=== PATIENT | female | born 1945 | race Hispanic/Latino ===

== ENCOUNTER 2016-12-21 09:07 | Inpatient (IN) | payer MEDICARE, OTHER ==
[2016-12-21 09:23] VITALS: BMI 20.5
--- NOTE | 2016-12-21 09:30 | ED PDOC ---
Arrival/HPI - General Chief Complaint: Trauma Time Seen by Provider: 12/21/16 09:17 Historian: Patient, Family, EMS - History of Present Illness Narrative History of Present Illness (Text): 12/21/16 09:20 Patient is a 71 yo female presents to ED after "falling off the bed" "this morning". Patient reportedly was getting up to go to bathroom when she slipped off of bed and landed onto her back. States she has low back pain and neck pain , and was unable to stand due to the pain. Denies LOC. Denies feeling sick prior to his morning. Denies hip or knee pain. Denies chest pain or shortness of breath. Denies focal weakness. Past Medical History - Provider Review Nursing Documentation Reviewed: Yes - Infectious Disease Hx of Infectious Diseases: None - Tetanus Immunization Tetanus Immunization: Unknown - Past Medical History Past Medical History: No Previous - Cardiac Hx Cardiac Disorders: Yes Hx Hypertension: Yes - Pulmonary Hx Respiratory Disorders: Yes Hx Asthma: Yes - Neurological Hx Neurological Disorder: No - HEENT Hx HEENT Disorder: No - Renal Hx Renal Disorder: Yes Hx Kidney Stones: Yes Other/Comment: RENAL CALCULI - Endocrine/Metabolic Hx Diabetes Mellitus Type 2: Yes - Hematological/Oncological Hx Blood Disorders: Yes Hx Blood Transfusions: Yes (2015) - Integumentary Hx Dermatological Disorder: No - Musculoskeletal/Rheumatological Hx Musculoskeletal Disorders: Yes - Gastrointestinal Hx Gastrointestinal Disorders: Yes Other/Comment: CHOLESTASIS. GASTRIC BYPASS - Genitourinary/Gynecological Hx Genitourinary Disorders: Yes (PYELONEPHRITIS,PSEUDOMONAS UTI,RENAL CA) Other/Comment: kidney stone - Psychiatric Hx Psychophysiologic Disorder: Yes Hx Depression: Yes Hx Emotional Abuse: No Hx Physical Abuse: No Hx Substance Use: No - Surgical History Hx Gastric Bypass Surgery: Yes Hx Tubal Ligation: Yes Other/Comment: kidney surgery - Anesthesia Hx Anesthesia Reactions: No Hx Malignant Hyperthermia: No - Suicidal Assessment Feels Threatened In Home Enviroment: No Family/Social History - Physician Review Nursing Documentation Reviewed: Yes Family/Social History: Unknown Family HX Smoking Status: Never Smoked Hx Alcohol Use: No Hx Substance Use: No Hx Substance Use Treatment: No Allergies/Home Meds Allergies/Adverse Reactions: Allergies cashew nut Allergy (Verified 12/21/16 18:18) SWELLING latex Allergy (Verified 12/21/16 18:18) ANAPHYLAXIS naproxen Adverse Reaction (Verified 12/21/16 18:18) SWELLING AVOIDS cashews Allergy (Uncoded 12/21/16 18:18) SWELLING cats Allergy (Uncoded 12/21/16 18:18) RASH Home Medications: Home Meds Medication Instructions Recorded Confirmed Sertraline [Zoloft] 100 mg PO DAILY 08/20/14 12/21/16 ALPRAZolam [Xanax] 0.25 mg PO PRN PRN 10/25/15 12/21/16 Mesalamine [Pentasa] 500 tab PO BID 11/19/15 12/21/16 Glyburide/Metformin HCl 1 tab PO QID 03/29/16 12/21/16 [Glyburide-Metformin 5-500 mg] Gabapentin [Neurontin] 300 tab PO TID 03/31/16 12/21/16 Hydrochlorothiazide 25 mg PO DAILY 04/27/16 12/21/16 Potassium Chloride [K-Dur 20 mEq 20 meq PO QID 04/27/16 12/21/16 ER Tab] Primidone 50 mg PO HS 04/27/16 12/21/16 Ondansetron HCl [Zofran] 4 mg PO PRN PRN 09/08/16 12/21/16 Review of Systems - Review of Systems Constitutional: Fatigue. absent: Fevers Eyes: absent: Vision Changes ENT: absent: Hearing Changes, Tinnitus Respiratory: absent: SOB, Cough Cardiovascular: absent: Chest Pain, Palpitations, BANGURA Gastrointestinal: Diarrhea, Appetite Changes. absent: Abdominal Pain, Vomiting , Hematemesis, Food Intolerance Genitourinary Female: absent: Dysuria, Frequency, Urine Output Changes Musculoskeletal: Back Pain, Neck Pain. absent: Joint Swelling Skin: absent: Rash Neurological: Gait Changes, Disequilibrium. absent: Headache, Dizziness, Focal Weakness, Facial Droop Endocrine: absent: Polyuria Hemo/Lymphatic: absent: Easy Bleeding Physical Exam - Physical Exam Narrative Physical Exam (Text): Head: Atraumatic. Normocephalic. Eyes: PERRL. EOMI. Conjunctivae are not pale. Visual acuity intact. ENT: Mucous membranes are dry. No pharyngeal erythema or exudate. Neck: Supple. Full ROM. Paraspinal tenderness. Cardiovascular: Regular rate. Regular rhythm. Systolic murmur. Pulmonary/Chest: No evidence of respiratory distress. Clear to auscultation bilaterally. No wheezing, rales or rhonchi. No rib tenderness or crepitus. Abdominal: Soft and non-distended. There is no tenderness. No rebound, guarding, or rigidity. No organomegaly. Good bowel sounds. Rectal: loose stool, no melena or active gross bleeding. Back: No CVA tenderness. Diffuse lumbar paraspinal tenderness Extremities: No edema. No cyanosis. No clubbing. Full range of motion in all extremities. No calf tenderness. Strong distal pulses. No hip pain with palpation or rom. No knee or ankle pain. Skin: Skin is warm and dry. No petechiae. No purpura. Neurological: Alert, awake, and oriented to person, place, time, and situation. Normal speech. Unable to ambulate with steady gait. Normal finger to nose. Normal and symmetric reflexes. At rest, no pronator drift, motor and sensory exam intact. No meningeal signs. Psychiatric: Good eye contact. Normal interaction, affect, and behavior. 12/21/16 18:45 Vital Signs Reviewed: Yes Vital Signs Temp Pulse Resp BP Pulse Ox 12/21/16 13:33 66 18 128/55 L 99 12/21/16 11:48 67 18 118/59 L 99 12/21/16 11:07 69 18 121/56 L 99 12/21/16 09:22 98.8 F 74 18 123/48 L 99 Blood Pressure: Normal Appearance: Positive for: Uncomfortable Pain Distress: Moderate Mental Status: Positive for: Alert and Oriented X 3 Medical Decision Making ED Course and Treatment: Plan: Will obtain CT of the head, x-rays of the c-spine and l-spine, and check labs. Prior Visits: Notes and results from previous visits were reviewed. Patient last seen in ED on 09/08/16 for dysuria, hematuria, back pain, nausea, and admitted for acute pyelonephritis Progress Notes: Patient's history reviewed with family present. Reportedly patient fell out of bed, denies syncope, denies preceding chest pain or sob or dizziness or lightheadedness. She states she was "too weak to get up after fall". There is appears to be a component of back pain that limits her standing, although labs obtained as patient appeared generally weak as well. No hip or pelvis pain noted. CT and xrays reviewed: PROCEDURE: CT HEAD WITHOUT CONTRAST. Instructional Design Manager : Dr. Allyson Lowe V. IMPRESSION: Cerebral atrophy similar. No interval hemorrhage or mass effect. No interval gross hypodense infarct PROCEDURE: Cervical Spine Radiographs. Instructional Design Manager : Allyson Zavala V. IMPRESSION: Normal cervical spine radiographs. No fracture or subluxation. No significant degenerative joint disease of the cervical spine level - -patient's age is noted PROCEDURE: Radiographs of the Lumbar Spine. Instructional Design Manager : Allyson Zavala V. FINDINGS: BONES: Lumbar spine straightening. Mild spondylotic ridging mostly at the thoraco lumbar level. No listhesis. No fracture. DISC SPACES: L5-S1 disc space narrowing OTHER FINDINGS: 3.9 x 2.9 cm large faceted calculus as per the CT 11/10/2016 study this was in the right intrarenal pelvis. Additional smaller yet still fairly large calculi project posterior and inferior to the larger intra renal pelvis dominant calculus. Per the recent CT, these additional calculi were seen in the right renal inferior renal cortex. Multiple surgical clips and ha are scattered over the abdomen mostly left- sided. IMPRESSION: No fracture. Other findings as above On re-evaluation, she is found to have persistent low back pain, but no focal neuro deficits. Patient hypokalemic, although EKG unremarkable and BP stable. She does report some history of diarrhea. Abdomen is soft and nontender. UTI also noted, currently patient denies flank pain or abdominal pain. Cultures obtained as patient with prior history of UTI. She denies flank or abdominal pain. Her current back pain is worse with palpation and movement and after fall. Case discussed with Dr. Haley, will admit for hypokalemia, uti, serial exams. 12/21/16 18:47 - Lab Interpretations Lab Results: 12/21/16 09:51 12/21/16 09:51 Lab Results 12/21/16 10:08: Urine Color Yellow, Urine Appearance Turbid, Urine pH 6.0, Ur Specific [place] 1.020, Urine Protein 30 H, Urine Glucose (UA) Negative, Urine Ketones Trace H, Urine Blood Large H, Urine Nitrate Negative, Urine Bilirubin Negative, Urine Urobilinogen 0.2, Ur Leukocyte Esterase Large H, Urine RBC 1 - 3 , Urine WBC Tntc, Urine Bacteria Few 12/21/16 09:51: WBC 7.0 D, RBC 3.56, Hgb 10.6 L, Hct 30.8 L, MCV 86.5, MCH 29.8 , MCHC 34.4, RDW 15.0 H, Plt Count 85 L, MPV 9.8, Gran % 83.8 H, Lymph % (Auto) 7.3 L, [place] % (Auto) 8.3 H, Eos % (Auto) 0.6 L, Baso % (Auto) 0.0, Gran # 5.84, Lymph # 0.5 L, [place] # 0.6, Eos # 0.0, Baso # 0.00, Sodium 141, Potassium 2.3 L* D, Chloride 111 H, Carbon Dioxide 18 L, Anion Gap 14, BUN 13, Creatinine 1.0, Est GFR ( Amer) > 60, Est GFR (Non-Af Amer) 55, Random Glucose 159 H, Calcium 8.4, Total Bilirubin 1.3, AST 30, ALT 29, Alkaline Phosphatase 97, Lactate Dehydrogenase 354, Total Creatine Kinase 229, Troponin I < 0.01, Total Protein 6.6, Albumin 3.0, Globulin 3.6, Albumin/Globulin Ratio 0.8 L - RAD Interpretation Radiology Orders: 12/21/16 09:31 HEAD W/O CONTRAST [CT] Stat CHEST ONE VIEW [RAD] Stat CERVICAL SPINE >18YR W/OBLIQUE [RAD] Stat 12/21/16 09:32 LS SPINE AP/LAT [RAD] Stat - Medication Orders Current Medication Orders: Alprazolam (Xanax) 0.25 mg PO DAILY PRN; Protocol PRN Reason: Anxiety Stop: 12/29/16 10:01 Gabapentin (Neurontin) 300 mg PO TID [facility] PRN Reason: Protocol Last Admin: 12/21/16 15:18 Dose: 300 MG Behavioural Document 12/21/16 15:18 (Rec: 12/21/16 15:18 [id number]) Maintenance Maintenance Dose Yes Re-Assess: Reassess Psych Meds Document 12/21/16 16:18 (Rec: 12/21/16 17:40 [id number]) Reassess Psych Med Effective Glyburide (Micronase) 5 mg PO QID [facility] Last Admin: 12/21/16 17:39 Dose: 5 MG Ceftriaxone Sodium (Rocephin 1 Gram Ivpb) 100 mls @ 100 mls/hr IVPB DAILY AGNES PRN Reason: Protocol Mesalamine (Pentasa) 500 mg PO BID [facility] Last Admin: 12/21/16 17:39 Dose: 500 MG Metformin HCl (Glucophage) 500 mg PO QID [facility] Last Admin: 12/21/16 17:36 Dose: 500 MG Ondansetron HCl (Zofran Inj) 4 mg IVP Q6H PRN PRN Reason: Nausea/Vomiting Potassium Chloride (K-Dur 20 Meq Er Tab) 20 meq PO QID [facility] Potassium Phos/Sodium Phos (Neutra-Phos) 1 pkt PO BID [facility] Last Admin: 12/21/16 17:39 Dose: 1 PKT Primidone (Mysoline) 50 mg PO HS AGNES Sertraline HCl (Zoloft) 100 mg PO DAILY [facility] Discontinued Medications Alprazolam (Xanax) 0.25 mg PO PRN PRN; Protocol PRN Reason: Anxiety Stop: 12/28/16 13:18 Potassium Chloride (Potassium Chloride 10 Meq/100 Ml) 100 mls @ 100 mls/hr IVPB Q2H [facility] Stop: 12/21/16 13:59 Last Admin: 12/21/16 14:01 Dose: 100 MLS/HR eMAR Start Stop Document 12/21/16 14:01 SE (Rec: 12/21/16 14:01 [id number]) Intravenous Solution Start Date 12/21/16 Start Time 14:01 Ceftriaxone Sodium (Rocephin 1 Gram Ivpb) 100 mls @ 200 mls/hr IVPB ONCE STA PRN Reason: Protocol Stop: 12/21/16 12:32 Last Admin: 12/21/16 13:11 Dose: 200 MLS/HR eMAR Start Stop Document 12/21/16 13:11 SE (Rec: 12/21/16 13:11 [id number]) Intravenous Solution Start Date 12/21/16 Start Time 13:11 Magnesium Sulfate/Dextrose (Magnesium Sulfate 1 Gm/100 Ml D5w) 100 mls @ 100 mls/hr IVPB ONCE ONE Stop: 12/21/16 15:35 Last Admin: 12/21/16 15:27 Dose: 100 MLS/HR eMAR Start Stop Document 12/21/16 15:27 (Rec: 12/21/16 15:28 [id number] Intravenous Solution Start Date 12/21/16 Start Time 15:28 End Date 12/21/16 End time 16:28 Total Infusion Time 60 Non-Formulary Medication (Glyburide/Metformin Hcl [Glyburide-Metformin 5-500 Mg] ) 1 tab PO QID AGNES Potassium Chloride (K-Dur 20 Meq Er Tab) 40 meq PO STAT STA Stop: 12/21/16 10:49 Last Admin: 12/21/16 12:11 Dose: 40 MEQ Potassium Chloride (K-Dur 20 Meq Er Tab) 40 meq PO STAT STA Stop: 12/21/16 16:08 Last Admin: 12/21/16 17:39 Dose: 40 MEQ - Scribe Statement The provider has reviewed the documentation as recorded by the Jeovanny Salinas Provider Scribe Attestation: All medical record entries made by the Jeovanny were at my direction and personally dictated by me. I have reviewed the chart and agree that the record accurately reflects my personal performance of the history, physical exam, medical decision making, and the department course for this patient. I have also personally directed, reviewed, and agree with the discharge instructions and disposition. Disposition/Present on Arrival - Present on Arrival Any Indicators Present on Arrival: No History of DVT/PE: No History of Uncontrolled Diabetes: No Urinary Catheter: No History Surgical Site Infection Following: None - Disposition Have Diagnosis and Disposition been Completed?: Yes Diagnosis: Urinary tract infection, Cervical strain, Back pain, Hypokalemia, Head injury Disposition: HOSPITALIZED Disposition Time: 11:00 Patient Plan: Admission, Telemetry Condition: FAIR
[2016-12-21 09:53] LABS: ADD MANUAL DIFF? NO
[2016-12-21 09:56] LABS: EOS % 0.6 % (1.5-5.0); GRAN # 5.84 (1.4-6.5); GRAN % 83.8 % (50.0-68.0); HEMATOCRIT 30.8 % (36.0-48.0); LYMPH # 0.5 (1.2-3.4); LYMPH % 7.3 % (22.0-35.0); MEAN CELL VOLUME 86.5 fL (80.0-105.0); MEAN CORPUSCULAR HEMOGLOBIN 29.8 pg (25.0-35.0); MEAN CORPUSCULAR HGB CONC 34.4 g/dl (31.0-37.0); MEAN PLATELET VOLUME 9.8 fl (7.0-11.0); MONO # 0.6 (0.1-0.6); MONO % 8.3 % (1.0-6.0); PLATELET COUNT 85 10^3/uL (120.0-450.0)
[2016-12-21 10:13] LABS: ALB/GLOB RATIO 0.8 (1.1-1.8); ALKALINE PHOSPHATASE 97 U/L (38-133); ALT/SGPT 29 U/L (7-56); AST/SGOT 30 U/L (15-39); BILIRUBIN,TOTAL 1.3 mg/dL (0.2-1.3); BLOOD UREA NITROGEN 13 mg/dL (7-21); CALCIUM 8.4 mg/dL (8.4-10.5); CARBON DIOXIDE 18 mmol/L (21-33); CHLORIDE 111 mmol/L (95-110); GFR AFRICAN-AMERICAN > 60; GLUCOSE,RANDOM 159 mg/dL (70-110); SODIUM 141 mmol/L (132-148); TOTAL PROTEIN 6.6 g/dL (5.8-8.3)
[2016-12-21 10:19] LABS: TROPONIN I < 0.01 ng/mL
[2016-12-21 10:20] LABS: URINE BILIRUBIN NEGATIVE (NEGATIVE); URINE BLOOD LARGE (NEGATIVE); URINE GLUCOSE (UA) NEGATIVE (NEGATIVE); URINE KETONE TRACE mg/dL (NEGATIVE); URINE LEUKOCYTE ESTERASE LARGE Leu/uL (NEGATIVE); URINE PROTEIN 30 mg/dL (<30 mg/dL); URINE UROBILINOGEN 0.2 E.U./dL (<1 E.U./dL)
[2016-12-21 10:22] LABS: URINE APPEARANCE TURBID (CLEAR); URINE COLOR YELLOW (YELLOW)
[2016-12-21 10:24] LABS: URINE BACTERIA FEW (NEG); URINE WBC TNTC /hpf (0-6)
[2016-12-21 10:47] LABS: POTASSIUM 2.3 mmol/L (3.6-5.0)
[2016-12-21] MEDS ORDERED: Potassium Chloride 20 mEq ER Tab PO STA ×2 (10:48→16:07)
--- NOTE | 2016-12-21 11:11 | CT ---
PROCEDURE: CT HEAD WITHOUT CONTRAST. HISTORY: weakness, unable to stand COMPARISON: 02/27/2015 TECHNIQUE: Axial computed tomography images were obtained through the head/brain without intravenous contrast. Radiation dose: Total exam DLP = 813 mGy-cm. This CT exam was performed using one or more of the following dose reduction techniques: Automated exposure control, adjustment of the mA and/or kV according to patient size, and/or use of iterative reconstruction technique. FINDINGS: HEMORRHAGE: No intracranial hemorrhage. BRAIN: No mass effect or edema. Mild atrophy suggested not inconsistent with patient's age No marked microvascular ischemic changes. VENTRICLES: Unremarkable. No hydrocephalus. CALVARIUM: Unremarkable. PARANASAL SINUSES: Unremarkable as visualized. No significant inflammatory changes. MASTOID AIR CELLS: Unremarkable as visualized. No inflammatory changes. OTHER FINDINGS: None. IMPRESSION: Cerebral atrophy similar. No interval hemorrhage or mass effect. No interval gross hypodense infarct
[2016-12-21] MEDS ORDERED: cefTRIAXone 1 gm 100 ML IVPB STA (12:03)
--- NOTE | 2016-12-21 12:03 | RAD ---
PROCEDURE: Radiographs of the Lumbar Spine. HISTORY: fall, low back pain COMPARISON: No prior. FINDINGS: BONES: Lumbar spine straightening. Mild spondylotic ridging mostly at the thoraco lumbar level. No listhesis. No fracture. DISC SPACES: L5-S1 disc space narrowing OTHER FINDINGS: 3.9 x 2.9 cm large faceted calculus as per the CT 11/10/2016 study this was in the right intrarenal pelvis. Additional smaller yet still fairly large calculi project posterior and inferior to the larger intra renal pelvis dominant calculus. Per the recent CT, these additional calculi were seen in the right renal inferior renal cortex. Multiple surgical clips and ha are scattered over the abdomen mostly left-sided. IMPRESSION: No fracture. Other findings as above
[2016-12-21] MEDS: Potassium Chloride 10 mEq 100 ML IVPB SCH ×4 (12:11→21:21)
--- NOTE | 2016-12-21 12:42 | RAD ---
PROCEDURE: CHEST RADIOGRAPH, 1 VIEW HISTORY: fall COMPARISON: 12/27/2015 FINDINGS: LUNGS: Clear. PLEURA: No pneumothorax or pleural fluid seen. CARDIOVASCULAR: Normal. OSSEOUS STRUCTURES: No significant abnormalities. VISUALIZED UPPER ABDOMEN: Normal. OTHER FINDINGS: None. IMPRESSION: No active disease. No interval pathology appreciated .
--- NOTE | 2016-12-21 12:44 | RAD ---
PROCEDURE: Cervical Spine Radiographs. HISTORY: Pain. COMPARISON: None. FINDINGS: BONES: Alignment maintained. No fracture. Dens Intact. DISC SPACES: Normal. SOFT TISSUES: Normal. No prevertebral soft tissue swelling. OTHER FINDINGS: None. IMPRESSION: Normal cervical spine radiographs. No fracture or subluxation. No significant degenerative joint disease of the cervical spine level - -patient's age is noted
--- NOTE | 2016-12-21 13:51 | CP.PCM.HP ---
<Mingo Lino - Last Filed: 12/21/16 16:03> History of Present Illness - History of Present Illness History of Present Illness: cc: Fall HPI: Patient is a 71yo female with past medical history of DM type 2, nephrolithiasis, hypokalemia, recurrent UTI's, Crohn's disease, pyelonephritis and depression that presented s/p fall at home. Patient reported that she was laying in bed this morning and was attempting to get out of bed when she suddenly slipped off her mattress and fell onto the floor landing on the right- side of her body and right arm. She denies hitting her head, loss of consciousness, bowel/bladder issues and confusion post fall. She reported that after falling she attempted to stand up but was unable to. Patient stated that her came to her aid but also had difficulty helping her up. She reported that shortly after they called 911 for further assistance. On arrival to the ED patient's vitals were as follows: temperature 98.8F, heart rate 74bpm , blood pressure 123/48, respiratory rate 18, o2 saturation 99% on room air. Her initial labs were notable for a hemoglobin of 10.6, hematocrit 30.8, platelet count 85, potassium 2.3, chloride 111, bicarbonate 18. A chest xray revealed no active disease. EKG revealed normal sinus rhythm with no acute ST-T wave changes. Head CT revealed no acute intracranial pathology. Cervical and Lumbar spine xrays revealed no acute fractures or dislocations. Patient was admitted for further evaluation and treatment. 12point ROS as per HPI above, otherwise negative PMHx: DM type 2, nephrolithiasis, pyelonephritis, recurrent UTI's, hypokalemia, Crohn's disease, depression PSHx: Cholecystectomy, gastric bypass, tubal ligation Family Hx: Noncontributory Social Hx: Denies tobacco, alcohol and illicit drug use Allergy: Cashews, Latex, Naproxen, Cat dander PMD: Dr. Browne Urologist: Dr. Horvath Rn Outpatient Surgery: Dr. Jackman Present on Admission - Present on Admission Any Indicators Present on Admission: No Past Patient History - Infectious Disease Hx of Infectious Diseases: None - Tetanus Immunizations Tetanus Immunization: Unknown - Past Social History Smoking Status: Never Smoked - CARDIAC Hx Cardiac Disorders: Yes Hx Hypertension: Yes - PULMONARY Hx Respiratory Disorders: Yes Hx Asthma: Yes - NEUROLOGICAL Hx Neurological Disorder: No - HEENT Hx HEENT Problems: No - RENAL Hx Chronic Kidney Disease: Yes Hx Kidney Stones: Yes Other/Comment: RENAL CALCULI - ENDOCRINE/METABOLIC Hx Diabetes Mellitus Type 2: Yes - HEMATOLOGICAL/ONCOLOGICAL Hx Blood Disorders: Yes Hx Blood Transfusions: Yes (2014) - INTEGUMENTARY Hx Dermatological Problems: No - MUSCULOSKELETAL/RHEUMATOLOGICAL Hx Musculoskeletal Disorders: Yes - GASTROINTESTINAL Hx Gastrointestinal Disorders: Yes Other/Comment: CHOLESTASIS. GASTRIC BYPASS - GENITOURINARY/GYNECOLOGICAL Hx Genitourinary Disorders: Yes (PYELONEPHRITIS,PSEUDOMONAS UTI,RENAL CA) Other/Comment: kidney stone - PSYCHIATRIC Hx Psychophysiologic Disorder: Yes Hx Depression: Yes Hx Emotional Abuse: No Hx Physical Abuse: No Hx Substance Use: No - SURGICAL HISTORY Hx Gastric Bypass Surgery: Yes Hx Tubal Ligation: Yes Other/Comment: kidney surgery - ANESTHESIA Hx Anesthesia Reactions: No Hx Malignant Hyperthermia: No Meds Allergies/Adverse Reactions: Allergies Allergy/AdvReac Type Severity Reaction Status Date / Time cashew nut Allergy SWELLING Verified 12/21/16 18:18 latex Allergy ANAPHYLAXIS Verified 12/21/16 18:18 naproxen AdvReac SWELLING Verified 12/21/16 18:18 cashews Allergy SWELLING Uncoded 12/21/16 18:18 cats Allergy RASH Uncoded 12/21/16 18:18 Physical Exam - Constitutional Appears: Non-toxic, No Acute Distress - Head Exam Head Exam: ATRAUMATIC, NORMAL INSPECTION, NORMOCEPHALIC - Eye Exam Eye Exam: EOMI, PERRL - ENT Exam ENT Exam: Mucous Membranes Moist - Neck Exam Neck exam: Positive for: Normal Inspection. Negative for: Lymphadenopathy, Tenderness, Thyromegaly - Respiratory Exam Respiratory Exam: Clear to Auscultation Bilateral. absent: Rales, Rhonchi, Wheezes - Cardiovascular Exam Cardiovascular Exam: RRR, +S1, +S2. absent: Tachycardia, Diastolic murmur, Gallop, JVD, Rubs, Systolic Murmur - GI/Abdominal Exam GI & Abdominal Exam: Normal Bowel Sounds, Soft. absent: Distended, Firm, Guarding, Rebound, Rigid, Tenderness - Extremities Exam Extremities exam: Positive for: normal inspection. Negative for: calf tenderness, pedal edema, tenderness Additional comments: no apparent fractures, dislocations or bruising motor strength 5/5 in bilateral upper and lower extremities sensory intact throughout - Back Exam Back exam: NORMAL INSPECTION - Neurological Exam Neurological exam: Alert, CN II-XII Intact, Oriented x3 - Psychiatric Exam Psychiatric exam: Normal Affect, Normal Mood - Skin Skin Exam: Dry, Intact, Normal Color, Warm Results - Vital Signs Recent Vital Signs: Last Vital Signs Temp 98.8 F 12/21/16 09:22 Pulse 66 12/21/16 13:33 Resp 18 12/21/16 13:33 BP 128/55 L 12/21/16 13:33 Pulse Ox 99 12/21/16 13:33 - Labs Result Diagrams: 12/21/16 09:51 12/21/16 09:51 Assessment & Plan - Assessment and Plan (Free Text) Assessment: 71yo female with history of DM type 2, Crohn's disease, hypokalemia, crohn's disease presents s/p fall at home. Admitted for treatment of hypokalemia and UTI. Plan: 1. Hypokalemia/Hypomagnesemia/Hypophosphatemia -Potassium 2.3 on arrival; Magnesium 1.5; Phosphorus 1.7 -Will continue to monitor and replete electrolytes as needed 2. 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 s/p fall -Head CT revealed no acute intracranial pathology -Chest xray revealed no active disease -EKG revealed normal sinus rhythm with no acute ST-T wave changes -Cervical and Lumbar spine x-rays revealed no acute fractures -Orthostatic vital signs pending -Right humerus/forearm xray pending 4. Crohn's disease -Continue home medication; mesalamine 5. DM type 2 -Consistent carb diet -Fingersticks ACHS -Continue home medication metformin/glyburide 6. Depression -Continue home medication; zoloft/xanax Case discussed with attending, Dr. Browne - Date & Time Date: 12/21/16 Time: 13:59 <Oleg Browne - Last Filed: 01/11/17 10:59> Results - Vital Signs Recent Vital Signs: Last Vital Signs Temp 98.6 F 12/23/16 17:39 Pulse 72 12/23/16 17:39 Resp 19 12/23/16 17:39 BP 98/56 L 12/23/16 17:39 Pulse Ox 96 12/23/16 17:39 - Labs Result Diagrams: 12/23/16 07:00 12/23/16 07:00 Attending/Attestation - Attestation I have personally seen and examined this patient.: Yes I have fully participated in the care of the patient.: Yes I have reviewed all pertinent clinical information: Yes Notes (Text): 01/11/17 10:59 Medial record note done by resident after patient personally seen and examined by me. I have reviewed the chart and agree that the record accurately reflects my personal evaluation, data review, and course for the patient.
[2016-12-21] MEDS ORDERED: Non Formulary Medication (Glyburide/Metformin Hcl [Glyburide-Metformin 5-500 Mg] 1 TAB) PO SCH (14:00)
[2016-12-21 14:27] LABS: RETIC% 1.83 % (0.5-1.5)
[2016-12-21 14:28] LABS: MAGNESIUM 1.5 mg/dL (1.7-2.2); PHOSPHOROUS 1.7 mg/dL (2.5-4.5)
[2016-12-21 14:39] LABS: IRON 25 ug/dL (45-180)
[2016-12-21] MEDS: Mesalamine ER Cap 500 MG PO SCH (17:39)
[2016-12-21] MEDS: Potassium & Sodium Phosphate PO SCH (17:39)
--- NOTE | 2016-12-21 17:57 | CARD ---
APPROVED REPORT EKG Measurement Heart [id number] <Conclusion> Normal sinus rhythm Normal ECG
[2016-12-21 18:10] LABS: BLOOD UREA NITROGEN 10 mg/dL (7-21); CALCIUM 7.7 mg/dL (8.4-10.5); CARBON DIOXIDE 19 mmol/L (21-33); CHLORIDE 110 mmol/L (98-107); GFR AFRICAN-AMERICAN > 60; GLUCOSE,RANDOM 148 mg/dL (70-110); SODIUM 138 mmol/L (132-148)
[2016-12-21 18:24] LABS: POTASSIUM 2.3 mmol/L (3.6-5.0)
[2016-12-21] MEDS ORDERED: Pneumococcal 23-Valent Vaccine IM ONE (20:39)
[2016-12-21] MEDS ORDERED: Potassium Chloride 20 mEq ER Tab PO ONE (21:00)
[2016-12-21 23:04] LABS: FOLATE > 20.0 ng/mL
[2016-12-22 07:20] LABS: ADD MANUAL DIFF? NO
[2016-12-22 07:28] LABS: BASO # 0.02 K/mm3 (0.0-2.0); BASO % 0.5 % (0.0-3.0); EOS # 0.1 (0.0-0.7); EOS % 2.6 % (1.5-5.0); GRAN # 2.68 (1.4-6.5); GRAN % 69.8 % (50.0-68.0); HEMATOCRIT 27.1 % (36.0-48.0); LYMPH # 0.5 (1.2-3.4); LYMPH % 12.8 % (22.0-35.0); MEAN CELL VOLUME 87.1 fL (80.0-105.0); MEAN CORPUSCULAR HEMOGLOBIN 30.5 pg (25.0-35.0); MEAN CORPUSCULAR HGB CONC 35.1 g/dl (31.0-37.0); MEAN PLATELET VOLUME 9.5 fl (7.0-11.0); MONO # 0.6 (0.1-0.6); MONO % 14.3 % (1.0-6.0); PLATELET COUNT 78 10^3/uL (120.0-450.0); RED CELL DISTRIBUTION WIDTH 15.3 % (11.5-14.5); WHITE BLOOD COUNT 3.8 10^3/ul (4.5-11.0)
--- NOTE | 2016-12-22 07:32 | CP.PCM.PN ---
<Mingo Lino - Last Filed: 12/22/16 10:44> Subjective - Date & Time of Evaluation Date of Evaluation: 12/22/16 Time of Evaluation: 07:31 - Subjective Subjective: Medicine progress note - Mingo Lino PGY1 Patient seen and examined at bedside this morning. Reports no new complaints or overnight events. States she is feeling better this morning, eating and sleeping without issue. Discussed current plan of care with the patient which includes IV antibiotics for her UTI and monitoring/replacement of her electrolytes. Denies chest pain, palpitations, SOB. Objective - Vital Signs/Intake and Output Vital Signs (last 24 hours): Temp Pulse Resp BP Pulse Ox 98.3 F 62 18 100/50 L 99 12/22/16 06:00 12/22/16 06:00 12/22/16 06:00 12/22/16 06:00 12/21/16 14:40 Intake and Output: 12/22/16 12/22/16 06:59 18:59 Intake Total 1840 Output Total 3600 Balance -1760 - Medications Medications: Current Medications Acetaminophen (Tylenol 325mg Tab) 650 mg PO Q4H PRN PRN Reason: Pain, moderate (4-7) Last Admin: 12/22/16 06:56 Dose: 650 mg Alprazolam (Xanax) 0.25 mg PO DAILY PRN; Protocol PRN Reason: Anxiety Stop: 12/29/16 10:01 Gabapentin (Neurontin) 300 mg PO TID [facility] PRN Reason: Protocol Last Admin: 12/21/16 19:30 Dose: 300 mg Glyburide (Micronase) 5 mg PO QID [facility] Last Admin: 12/21/16 21:17 Dose: 5 mg Ceftriaxone Sodium (Rocephin 1 Gram Ivpb) 100 mls @ 100 mls/hr IVPB DAILY [facility] PRN Reason: Protocol Mesalamine (Pentasa) 500 mg PO BID [facility] Last Admin: 12/21/16 17:39 Dose: 500 mg Metformin HCl (Glucophage) 500 mg PO QID [facility] Last Admin: 12/21/16 21:15 Dose: 500 mg Ondansetron HCl (Zofran Inj) 4 mg IVP Q6H PRN PRN Reason: Nausea/Vomiting Potassium Chloride (K-Dur 20 Meq Er Tab) 20 meq PO QID [facility] Potassium Phos/Sodium Phos (Neutra-Phos) 1 pkt PO BID [facility] Last Admin: 12/21/16 17:39 Dose: 1 pkt Primidone (Mysoline) 50 mg PO HS [facility] Last Admin: 12/21/16 21:18 Dose: 50 mg Sertraline HCl (Zoloft) 100 mg PO DAILY [facility] - Labs Labs: 12/22/16 06:45 12/21/16 17:45 - Constitutional Appears: Well, Non-toxic, No Acute Distress - Head Exam Head Exam: ATRAUMATIC, NORMAL INSPECTION, NORMOCEPHALIC - Eye Exam Eye Exam: EOMI, PERRL - ENT Exam ENT Exam: Mucous Membranes Moist - Neck Exam Neck Exam: Normal Inspection. absent: Lymphadenopathy, Tenderness, Thyromegaly - Respiratory Exam Respiratory Exam: Clear to Ausculation Bilateral. absent: Rales, Rhonchi, Wheezes - Cardiovascular Exam Cardiovascular Exam: RRR, +S1, +S2. absent: Bradycardia, Tachycardia, Gallop, JVD, Rubs, Murmur - GI/Abdominal Exam GI & Abdominal Exam: Soft, Normal Bowel Sounds. absent: Distended, Firm, Guarding, Rigid, Tenderness, Rebound - Extremities Exam Extremities Exam: Normal Inspection. absent: Pedal Edema - Neurological Exam Neurological Exam: Alert, Awake, CN II-XII Intact, Oriented x3 - Psychiatric Exam Psychiatric exam: Normal Affect, Normal Mood - Skin Skin Exam: Dry, Intact, Normal Color, Warm Assessment and Plan - Assessment and Plan (Free Text) Assessment: 71yo female with history of DM type 2, Crohn's disease, hypokalemia, crohn's disease presents s/p fall at home. Admitted for treatment of hypokalemia and UTI Plan: 1. Hypokalemia/Hypomagnesemia/Hypophosphatemia -Will continue to monitor and replete electrolytes as needed 2. 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 Pancytopenia -Patient has a history of being panctyopenic with previous evaluation by hematology/oncology -Hematology consulted - Dr. Wynn, will follow up recommendations 4. s/p fall -Head CT revealed no acute intracranial pathology -Chest xray revealed no active disease -EKG revealed normal sinus rhythm with no acute ST-T wave changes -Cervical and Lumbar spine x-rays revealed no acute fractures -Right humerus/forearm xray revealed no acute abnormalities 5. Crohn's disease -Continue home medication; mesalamine 6. DM type 2 -Consistent carb diet -Fingersticks ACHS -Continue home medication metformin/glyburide 7. Depression -Continue home medication; zoloft/xanax Patient seen and case discussed with attending, Dr. Haley <Harjit Haley - Last Filed: 01/06/17 09:19> Objective - Vital Signs/Intake and Output Vital Signs (last 24 hours): Temp Pulse Resp BP Pulse Ox 98.6 F 72 19 98/56 L 96 12/23/16 17:39 12/23/16 17:39 12/23/16 17:39 12/23/16 17:39 12/23/16 17:39 - Labs Labs: 12/23/16 07:00 12/23/16 07:00 Attending/Attestation - Attestation I have personally seen and examined this patient.: Yes I have fully participated in the care of the patient.: Yes I have reviewed all pertinent clinical information, including history, physical exam and plan: Yes Notes (Text): 01/06/17 09:19 Medical record note made by the resident after discussion with my direction and input after the patient was personally seen and examined by me. I have reviewed the chart and agree that the record accurately reflects by personal performance of the history, physical exam, data review, and medical decision-making, in the course for the patient. I have also personally directed the plan of care.
[2016-12-22 07:54] LABS: ALB/GLOB RATIO 0.7 (1.1-1.8); ALKALINE PHOSPHATASE 78 U/L (38-133); ALT/SGPT 33 U/L (7-56); AST/SGOT 32 U/L (15-39); BILIRUBIN,TOTAL 1.1 mg/dL (0.2-1.3); BLOOD UREA NITROGEN 11 mg/dL (7-21); CALCIUM 7.5 mg/dL (8.4-10.5); CARBON DIOXIDE 19 mmol/L (21-33); CHLORIDE 115 mmol/L (98-107); GFR AFRICAN-AMERICAN > 60; GLUCOSE,RANDOM 72 mg/dL (70-110); MAGNESIUM 1.8 mg/dL (1.7-2.2); PHOSPHOROUS 1.5 mg/dL (2.5-4.5); POTASSIUM 3.5 mmol/L (3.6-5.0); SODIUM 142 mmol/L (132-148); TOTAL PROTEIN 6.1 g/dL (5.8-8.3)
[2016-12-22] MEDS: Potassium Chloride 20 mEq ER Tab PO SCH ×4 (09:00→21:58)
[2016-12-22] MEDS: Mesalamine ER Cap 500 MG PO SCH ×2 (09:00→17:02)
[2016-12-22] MEDS: Potassium & Sodium Phosphate PO SCH ×2 (09:01→17:01)
[2016-12-22] MEDS: cefTRIAXone 1 gm 100 ML IVPB SCH (09:01)
--- NOTE | 2016-12-22 09:19 | RAD ---
PROCEDURE: Radiographs of the Right Forearm HISTORY: s/p fall COMPARISON: None available. TECHNIQUE: Frontal and lateral views obtained. FINDINGS: BONES: No fracture or destructive lesion. JOINT SPACES: Unremarkable. OTHER FINDINGS: None. IMPRESSION: Unremarkable radiographs of the right forearm.
--- NOTE | 2016-12-22 09:20 | RAD ---
PROCEDURE: Radiographs of the right humerus. HISTORY: s/p fall COMPARISON: None. FINDINGS: BONES: Normal. No fracture or focal lesion. SOFT TISSUES: Normal. OTHER FINDINGS: None. IMPRESSION: Normal radiographs of right humerus.
--- NOTE | 2016-12-22 17:31 | CON ---
DATE: 12/22/2016 REASON FOR CONSULTATION: Pancytopenia. HISTORY OF PRESENT ILLNESS: The patient is a 71-year-old female with past medical history significan t for multiple medical problems including diabetes type 2, nephrolithiasis, hypokalemia, recurrent UT Is, Crohn's disease, pyelonephritis and depression, who presented to the Emergency Room status post f all. She is currently undergoing a complete workup for the above. Consult was called for known panc ytopenia. She has followed up with me in the past in the office. Complete bone marrow has also been done, which did not reveal any active pathology. She does have a history of gastric bypass, which i s also likely contributing to her pancytopenia. Once again, the patient has not followed up in over 6 months. PAST MEDICAL HISTORY: As above, diabetes type 2, nephrolithiasis, pyelonephritis, recurrent UTIs, hy pokalemia, Crohn's disease as well as depression. PAST SURGICAL HISTORY: Significant for cholecystectomy, gastric bypass, and tubal ligation. FAMILY HISTORY: Noncontributory. SOCIAL HISTORY: She denies tobacco, alcohol abuse or drug use. KNOWN ALLERGIES: CASHEWS, LATEX, NAPROXEN, CAT DANDER. FAMILY HISTORY: Noncontributory. REVIEW OF SYSTEMS: As per the HPI. PHYSICAL EXAMINATION: VITAL SIGNS: Reveal a temperature of 97.8, pulse 64, respiratory rate of 18, and blood pressure 100/ 50. GENERAL: The patient is an elderly pleasant female, lying in bed, in no acute distress. HEAD AND NECK: Normocephalic, atraumatic. EYES: Pupils equal, round, reactive to light and accommodation. Extraocular muscles are intact. Th ere is some pallor, no icterus is noted. NECK: Supple with no adenopathy, no JVD, no thyromegaly. LUNGS: Clear to auscultation bilaterally with no rales or rhonchi. CARDIOVASCULAR: S1, S2 is heard. ABDOMEN: Positive bowel sounds, soft, nontender, nondistended, no organomegaly is palpated. LABORATORY DATA: Reveal a white count 3.8, hemoglobin 9.5, hematocrit 27.1, MCV of 87.1 and a platel et count of 78,000. White count diff is within normal limits except for mildly elevated monocytes. Her electrolytes are also within normal limits. There is no renal impairment. Her iron studies reve al a ferritin of 77. B12 and folate are within normal limits. ASSESSMENT AND PLAN: Elderly female with multiple medical problems including history of gastric bypa ss. She is now admitted status post fall and once again noticed to have pancytopenia, which is likel y secondary to liver disease. She has had a complete bone marrow done in the past without any pathol ogy. We will start patient on IV iron. Thank you for the consult. We will follow up as an outpatient as well. Raffy Wynn MD cc: [id number] TT: 12/22/2016 17:30:35 Confirmation # [id number] Dictation # [id number] ln
[2016-12-22] MEDS ORDERED: Pantoprazole 40 mg EC Tab PO ONE (21:40)
[2016-12-23] MEDS ORDERED: Pantoprazole 40 mg EC Tab PO SCH (07:30)
[2016-12-23 07:33] LABS: BASO # 0.01 K/mm3 (0.0-2.0); BASO % 0.3 % (0.0-3.0); EOS # 0.1 (0.0-0.7); EOS % 3.5 % (1.5-5.0); GRAN # 1.98 (1.4-6.5); GRAN % 69.1 % (50.0-68.0); HEMATOCRIT 27.9 % (36.0-48.0); LYMPH # 0.4 (1.2-3.4); LYMPH % 15.3 % (22.0-35.0); MEAN CELL VOLUME 88.6 fL (80.0-105.0); MEAN CORPUSCULAR HEMOGLOBIN 30.2 pg (25.0-35.0); MEAN CORPUSCULAR HGB CONC 34.1 g/dl (31.0-37.0); MEAN PLATELET VOLUME 10.4 fl (7.0-11.0); MONO # 0.3 (0.1-0.6); MONO % 11.8 % (1.0-6.0); PLATELET COUNT 75 10^3/uL (120.0-450.0); RED CELL DISTRIBUTION WIDTH 15.7 % (11.5-14.5)
[2016-12-23 07:37] LABS: ADD MANUAL DIFF? NO; WHITE BLOOD COUNT 2.9 10^3/ul (4.5-11.0)
[2016-12-23 07:50] LABS: ALB/GLOB RATIO 0.8 (1.1-1.8); ALKALINE PHOSPHATASE 87 U/L (38-133); ALT/SGPT 34 U/L (7-56); AST/SGOT 33 U/L (15-39); BILIRUBIN,TOTAL 0.6 mg/dL (0.2-1.3); BLOOD UREA NITROGEN 10 mg/dL (7-21); CALCIUM 7.6 mg/dL (8.4-10.5); CARBON DIOXIDE 17 mmol/L (21-33); CHLORIDE 115 mmol/L (98-107); GFR AFRICAN-AMERICAN > 60; GLUCOSE,RANDOM 150 mg/dL (70-110); MAGNESIUM 1.8 mg/dL (1.7-2.2); POTASSIUM 4.2 mmol/L (3.6-5.0); SODIUM 142 mmol/L (132-148); TOTAL PROTEIN 6.3 g/dL (5.8-8.3)
[2016-12-23 07:57] LABS: PHOSPHOROUS 1.4 mg/dL (2.5-4.5)
[2016-12-23] MEDS: Potassium & Sodium Phosphate PO SCH ×4 (09:20→17:47)
[2016-12-23] MEDS: Potassium Chloride 20 mEq ER Tab PO SCH ×3 (09:21→17:47)
[2016-12-23] MEDS: Mesalamine ER Cap 500 MG PO SCH ×2 (09:21→17:47)
[2016-12-23] MEDS ORDERED: Sodium Chloride 0.45% 1,000 ML IV SCH (10:15)
[2016-12-23] MEDS: cefTRIAXone 1 gm 100 ML IVPB SCH (10:31)
--- NOTE | 2016-12-23 10:37 | CP.PCM.DIS ---
<Mingo Lino - Last Filed: 12/23/16 14:56> Provider - Provider Date of Admission: 12/21/16 12:05 Attending physician: Oleg Browne MD Primary care physician: NO PRIMARY CARE PROVIDER Consults: Hematology - Dr. Wynn Time Spent in preparation of Discharge (in minutes): 30 Hospital Course - Lab Results Lab Results: Micro Results 12/21/16 14:23 Urine,Clean Catch Urine Culture - Final Escherichia Coli Enterococcus Faecalis Most Recent Lab Values WBC 2.9 10^3/ul (4.5-11.0) L* D 12/23/16 07:00 RBC 3.15 10^6/uL (3.5-6.1) L 12/23/16 07:00 Hgb 9.5 gm/dL (12.0-16.0) L 12/23/16 07:00 Hct 27.9 % (36.0-48.0) L 12/23/16 07:00 MCV 88.6 fL (80.0-105.0) 12/23/16 07:00 MCH 30.2 pg (25.0-35.0) 12/23/16 07:00 MCHC 34.1 g/dl (31.0-37.0) 12/23/16 07:00 RDW 15.7 % (11.5-14.5) H 12/23/16 07:00 Plt Count 75 10^3/uL (120.0-450.0) L 12/23/16 07:00 MPV 10.4 fl (7.0-11.0) 12/23/16 07:00 Gran % 69.1 % (50.0-68.0) H 12/23/16 07:00 Lymph % (Auto) 15.3 % (22.0-35.0) L 12/23/16 07:00 [place] % (Auto) 11.8 % (1.0-6.0) H 12/23/16 07:00 Eos % (Auto) 3.5 % (1.5-5.0) 12/23/16 07:00 Baso % (Auto) 0.3 % (0.0-3.0) 12/23/16 07:00 Gran # 1.98 (1.4-6.5) 12/23/16 07:00 Lymph # 0.4 (1.2-3.4) L 12/23/16 07:00 [place] # 0.3 (0.1-0.6) 12/23/16 07:00 Eos # 0.1 (0.0-0.7) 12/23/16 07:00 Baso # 0.01 K/mm3 (0.0-2.0) 12/23/16 07:00 Retic Count 1.83 % (0.5-1.5) H 12/21/16 14:22 Sodium 142 mmol/L (132-148) 12/23/16 07:00 Potassium 4.2 mmol/L (3.6-5.0) 12/23/16 07:00 Chloride 115 mmol/L (98-107) H 12/23/16 07:00 Carbon Dioxide 17 mmol/L (21-33) L 12/23/16 07:00 Anion Gap 14 (10-20) 12/23/16 07:00 BUN 10 mg/dL (7-21) 12/23/16 07:00 Creatinine 0.8 mg/dL (0.5-1.4) 12/23/16 07:00 Est GFR ( Amer) > 60 12/23/16 07:00 Est GFR (Non-Af Amer) > 60 12/23/16 07:00 POC Glucose (mg/dL) 185 mg/dL (65-110) H 12/23/16 07:11 Random Glucose 150 mg/dL (70-110) H 12/23/16 07:00 Calcium 7.6 mg/dL (8.4-10.5) L 12/23/16 07:00 Phosphorus 1.4 mg/dL (2.5-4.5) L* 12/23/16 07:00 Magnesium 1.8 mg/dL (1.7-2.2) 12/23/16 07:00 Iron 25 ug/dL (45-180) L 12/21/16 14:21 TIBC 258 ug/dL (265-497) L 12/21/16 14:21 % Saturation 10 % (20-55) L 12/21/16 14:21 Ferritin 77.6 ng/mL 12/21/16 14:31 Total Bilirubin 0.6 mg/dL (0.2-1.3) 12/23/16 07:00 AST 33 U/L (15-39) 12/23/16 07:00 ALT 34 U/L (7-56) 12/23/16 07:00 Alkaline Phosphatase 87 U/L (38-133) 12/23/16 07:00 Lactate Dehydrogenase 354 U/L (333-699) 12/21/16 09:51 Total Creatine Kinase 229 U/L (35-230) 12/21/16 09:51 Troponin I < 0.01 ng/mL 12/21/16 09:51 Total Protein 6.3 g/dL (5.8-8.3) 12/23/16 07:00 Albumin 2.7 g/dL (3.0-4.8) L 12/23/16 07:00 Globulin 3.6 gm/dL 12/23/16 07:00 Albumin/Globulin Ratio 0.8 (1.1-1.8) L 12/23/16 07:00 Vitamin B12 678 pg/mL (239-931) 12/21/16 14:31 Folate > 20.0 ng/mL 12/21/16 14:31 Urine Color Yellow (YELLOW) 12/21/16 10:08 Urine Appearance Turbid (CLEAR) 12/21/16 10:08 Urine pH 6.0 (4.7-8.0) 12/21/16 10:08 Ur Specific [place] 1.020 (1.005-1.035) 12/21/16 10:08 Urine Protein 30 mg/dL (<30 mg/dL) H 12/21/16 10:08 Urine Glucose (UA) Negative mg/dL (NEGATIVE) 12/21/16 10:08 Urine Ketones Trace mg/dL (NEGATIVE) H 12/21/16 10:08 Urine Blood Large (NEGATIVE) H 12/21/16 10:08 Urine Nitrate Negative (NEGATIVE) 12/21/16 10:08 Urine Bilirubin Negative (NEGATIVE) 12/21/16 10:08 Urine Urobilinogen 0.2 E.U./dL (<1 E.U./dL) 12/21/16 10:08 Ur Leukocyte Esterase Large Fifi/uL (NEGATIVE) H 12/21/16 10:08 Urine RBC 1 - 3 /hpf (0-2) 04/19/17 10:08 Urine WBC Tntc /hpf (0-6) 12/21/16 10:08 Urine Bacteria Few (NEG) 12/21/16 10:08 - Hospital Course Hospital Course: Patient is a 71yo female with past medical history of DM type 2, nephrolithiasis , hypokalemia, recurrent UTI's, Crohn's disease, pyelonephritis and depression that presented s/p fall at home. Patient had reported that she slipped off her mattress and fell onto the floor landing on the right-side of her body and right arm. She denied hitting her head, loss of consciousness, bowel/bladder issues and confusion post fall. She reported that after falling she attempted to stand up but was unable to and called 911 for further assistance. On arrival to the ED patient's vitals were as follows: temperature 98.8F, heart rate 74bpm , blood pressure 123/48, respiratory rate 18, o2 saturation 99% on room air. Her initial labs were notable for a hemoglobin of 10.6, hematocrit 30.8, platelet count 85, potassium 2.3, chloride 111, bicarbonate 18. A chest xray revealed no active disease. EKG revealed normal sinus rhythm with no acute ST-T wave changes. Head CT revealed no acute intracranial pathology. Cervical and Lumbar spine xrays revealed no acute fractures or dislocations. Patient was admitted for further evaluation and treatment. The following workup/results and treatment were completed during the patient's hospital course: 1. Hypokalemia/Hypomagnesemia/Hypophosphatemia -Electrolytes were monitored and repleted as indicated -Her hypokalemia and hypomagnesemia resolved; She was given neutra-phos for her hypophosphatemia 2. 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 Pancytopenia -Patient has a history of being panctyopenic with previous evaluation by hematology/oncology -Hematology consulted - Dr. Wynn -Patient was instructed to follow up with hematology within 1-2 weeks of discharge 4. s/p fall -Head CT revealed no acute intracranial pathology -Chest xray revealed no active disease -EKG revealed normal sinus rhythm with no acute ST-T wave changes -Cervical and Lumbar spine x-rays revealed no acute fractures -Right humerus/forearm xray revealed no acute abnormalities -Orthostatic vitals within normal limits 5. Crohn's disease -Continue home medication; mesalamine 6. DM type 2 -Consistent carb diet -Fingersticks ACHS -Continue home medication metformin/glyburide 7. Depression -Continue home medication; zoloft/xanax 8. GI/DVT Prophylaxis -Protonix/SCD's Disposition: Throughout patient's hospital course, her symptoms improved. Her electrolyte abnormalities were monitored and corrected. She was seen by hematology and instructed to follow up with them as an outpatient upon discharge. Patient was agreeable to outpatient follow up and discharge. She was instructed to fill the medication prescribed to her (Ampicillin 500mg QID for 5 days) and take as directed. She was also instructed to follow up with her PMD, Dr. Browne within 1-[address] Horvath her urologist on her scheduled upcoming appointment. - Date & Time of H&P Date of H&P: 12/21/16 Discharge Exam - Head Exam Head Exam: ATRAUMATIC, NORMAL INSPECTION, NORMOCEPHALIC - Eye Exam Eye Exam: EOMI, PERRL - ENT Exam ENT Exam: Mucous Membranes Moist - Respiratory Exam Respiratory Exam: Clear to PA & Lateral. absent: Rales, Rhonchi, Wheezes - Cardiovascular Exam Cardiovascular Exam: RRR, +S1, +S2. absent: Diastolic murmur, Gallop, JVD, Rubs , Systolic Murmur - GI/Abdominal Exam GI & Abdominal Exam: Normal Bowel Sounds, Soft. absent: Distended, Firm, Guarding, Rebound, Tenderness - Neurological Exam Neurological exam: Alert, CN II-XII Intact, Oriented x3 - Psychiatric Exam Psychiatric exam: Normal Affect, Normal Mood - Skin Skin Exam: Dry, Intact, Normal Color, Warm Discharge Plan - Discharge Medications Prescriptions: Ampicillin 500 mg PO QID #20 cap - Follow Up Plan Condition: FAIR Disposition: HOME/ ROUTINE Instructions: Ampicillin (By mouth), Urinary Tract Infection in Women (DC), Heart Healthy Diet (DC), Hypokalemia (GEN), Cholesterol and Your Health (GEN), Meal Planning with Diabetes Exchanges (GEN), Back Pain (GEN), Fall Prevention ( GEN) Additional Instructions: 1. Follow up with your primary doctor, Dr. Browne within 1-2 weeks. 2. Follow up with your camp dishwasher, Dr. Wynn within 1-2 weeks with regards to low WBC and low platelet count. 3. Fill any medications prescribed to you and take as directed. 4. Return to the hospital should your condition worsen or change in severity/ quality. Diet: Heart Healthy, consistent carbohydrate diabetic diet Patient states she is up to date with regards to the pneumococcal vaccine and refuses the flu vaccine. Referrals: Oleg Browne MD [Staff Provider] - Raffy Wynn MD [Staff Provider] - <Harijt Haley - Last Filed: 01/06/17 09:20> Provider - Provider Date of Admission: 12/21/16 12:05 Attending physician: Oleg Browne MD Primary care physician: NO PRIMARY CARE PROVIDER Hospital Course - Lab Results Lab Results: Micro Results 12/21/16 14:23 Urine,Clean Catch Urine Culture - Final Escherichia Coli Enterococcus Faecalis Most Recent Lab Values WBC 2.9 10^3/ul (4.5-11.0) L* D 12/23/16 07:00 RBC 3.15 10^6/uL (3.5-6.1) L 12/23/16 07:00 Hgb 9.5 gm/dL (12.0-16.0) L 12/23/16 07:00 Hct 27.9 % (36.0-48.0) L 12/23/16 07:00 MCV 88.6 fL (80.0-105.0) 12/23/16 07:00 MCH 30.2 pg (25.0-35.0) 12/23/16 07:00 MCHC 34.1 g/dl (31.0-37.0) 12/23/16 07:00 RDW 15.7 % (11.5-14.5) H 12/23/16 07:00 Plt Count 75 10^3/uL (120.0-450.0) L 12/23/16 07:00 MPV 10.4 fl (7.0-11.0) 12/23/16 07:00 Gran % 69.1 % (50.0-68.0) H 12/23/16 07:00 Lymph % (Auto) 15.3 % (22.0-35.0) L 12/23/16 07:00 [place] % (Auto) 11.8 % (1.0-6.0) H 12/23/16 07:00 Eos % (Auto) 3.5 % (1.5-5.0) 12/23/16 07:00 Baso % (Auto) 0.3 % (0.0-3.0) 12/23/16 07:00 Gran # 1.98 (1.4-6.5) 12/23/16 07:00 Lymph # 0.4 (1.2-3.4) L 12/23/16 07:00 [place] # 0.3 (0.1-0.6) 12/23/16 07:00 Eos # 0.1 (0.0-0.7) 12/23/16 07:00 Baso # 0.01 K/mm3 (0.0-2.0) 12/23/16 07:00 Retic Count 1.83 % (0.5-1.5) H 12/21/16 14:22 Sodium 142 mmol/L (132-148) 12/23/16 07:00 Potassium 4.2 mmol/L (3.6-5.0) 12/23/16 07:00 Chloride 115 mmol/L (98-107) H 12/23/16 07:00 Carbon Dioxide 17 mmol/L (21-33) L 12/23/16 07:00 Anion Gap 14 (10-20) 12/23/16 07:00 BUN 10 mg/dL (7-21) 12/23/16 07:00 Creatinine 0.8 mg/dL (0.5-1.4) 12/23/16 07:00 Est GFR ( Amer) > 60 12/23/16 07:00 Est GFR (Non-Af Amer) > 60 12/23/16 07:00 POC Glucose (mg/dL) 176 mg/dL (65-110) H 12/23/16 11:03 Random Glucose 150 mg/dL (70-110) H 12/23/16 07:00 Calcium 7.6 mg/dL (8.4-10.5) L 12/23/16 07:00 Phosphorus 1.4 mg/dL (2.5-4.5) L* 12/23/16 07:00 Magnesium 1.8 mg/dL (1.7-2.2) 12/23/16 07:00 Iron 25 ug/dL (45-180) L 12/21/16 14:21 TIBC 258 ug/dL (265-497) L 12/21/16 14:21 % Saturation 10 % (20-55) L 12/21/16 14:21 Ferritin 77.6 ng/mL 12/21/16 14:31 Total Bilirubin 0.6 mg/dL (0.2-1.3) 12/23/16 07:00 AST 33 U/L (15-39) 12/23/16 07:00 ALT 34 U/L (7-56) 12/23/16 07:00 Alkaline Phosphatase 87 U/L (38-133) 12/23/16 07:00 Lactate Dehydrogenase 354 U/L (333-699) 12/21/16 09:51 Total Creatine Kinase 229 U/L (35-230) 12/21/16 09:51 Troponin I < 0.01 ng/mL 12/21/16 09:51 Total Protein 6.3 g/dL (5.8-8.3) 12/23/16 07:00 Albumin 2.7 g/dL (3.0-4.8) L 12/23/16 07:00 Globulin 3.6 gm/dL 12/23/16 07:00 Albumin/Globulin Ratio 0.8 (1.1-1.8) L 12/23/16 07:00 Vitamin B12 678 pg/mL (239-931) 12/21/16 14:31 Folate > 20.0 ng/mL 12/21/16 14:31 Urine Color Yellow (YELLOW) 12/21/16 10:08 Urine Appearance Turbid (CLEAR) 12/21/16 10:08 Urine pH 6.0 (4.7-8.0) 12/21/16 10:08 Ur Specific [place] 1.020 (1.005-1.035) 12/21/16 10:08 Urine Protein 30 mg/dL (<30 mg/dL) H 12/21/16 10:08 Urine Glucose (UA) Negative mg/dL (NEGATIVE) 12/21/16 10:08 Urine Ketones Trace mg/dL (NEGATIVE) H 12/21/16 10:08 Urine Blood Large (NEGATIVE) H 12/21/16 10:08 Urine Nitrate Negative (NEGATIVE) 12/21/16 10:08 Urine Bilirubin Negative (NEGATIVE) 12/21/16 10:08 Urine Urobilinogen 0.2 E.U./dL (<1 E.U./dL) 12/21/16 10:08 Ur Leukocyte Esterase Large Fifi/uL (NEGATIVE) H 12/21/16 10:08 Urine RBC 1 - 3 /hpf (0-2) 12/21/16 10:08 Urine WBC Tntc /hpf (0-6) 12/21/16 10:08 Urine Bacteria Few (NEG) 12/21/16 10:08 Attending/Attestation - Attestation I have personally seen and examined this patient.: Yes I have fully participated in the care of the patient.: Yes I have reviewed all pertinent clinical information, including history, physical exam and plan: Yes Notes (Text): 01/06/17 09:20 Medical record note made by the resident after discussion with my direction and input after the patient was personally seen and examined by me. I have reviewed the chart and agree that the record accurately reflects by personal performance of the history, physical exam, data review, and medical decision-making, in the course for the patient. I have also personally directed the plan of care.
[2016-12-23] MEDS: PrednisoLONE 1% Opht Susp(5 ml) OD SCH ×2 (13:15→17:49)
[2016-12-23] MEDS: Ciprofloxacin 0.3% OPTH SOLN OD SCH ×2 (13:19→17:46)
[2016-12-23 17:40] VITALS: BP 98/56; PULSE 72; RESP 19; TEMP 98.6; O2SAT 96
== END 2016-12-23 18:25 | disposition home or self-care (01) | DRG 641 ==
LOC: ED 09:07 → ERH 12:05 → 2RSO 14:39
PROVIDERS: ADMIT Internal Medicine; ATTEND Internal Medicine
DX: E87.6 Hypokalemia (principal); D61.818 Other pancytopenia; K50.90 Crohn's disease, unspecified, without complications; E83.42 Hypomagnesemia; E83.39 Other disorders of phosphorus metabolism; N39.0 Urinary tract infection, site not specified; S16.1XXA Strain of muscle, fascia and tendon at neck level, initial encounter; W06.XXXA Fall from bed, initial encounter; B96.20 Unspecified Escherichia coli [E. coli] as the cause of diseases classified elsewhere; F32.9 Major depressive disorder, single episode, unspecified; E11.9 Type 2 diabetes mellitus without complications; Z91.81 History of falling; Z87.440 Personal history of urinary (tract) infections; Z98.84 Bariatric surgery status; Z87.442 Personal history of urinary calculi; Y93.89 Activity, other specified; Y92.092 Bedroom in other non-institutional residence as the place of occurrence of the external cause; Y99.8 Other external cause status

== ENCOUNTER 2017-03-09 15:07 | Observation (INO) | payer MEDICARE, OTHER ==
[2017-03-09 15:08] VITALS: BMI 20.5
--- NOTE | 2017-03-09 15:45 | ED PDOC ---
Arrival/HPI - General Chief Complaint: Dizziness/Lightheaded Time Seen by Provider: 03/09/17 15:30 Historian: Patient - History of Present Illness Narrative History of Present Illness (Text): 03/09/17 15:41 A 71 year old female presents to the emergency department complaining of feeling unsteady on her feet over the past 2 weeks. Patient reports she loses her balance when ambulating and feels she is going to fall. Patient notes intermittent headaches that last approximately 5 minutes at a time. Patient denies any falls, loss of consciousness, dizziness, vision changes, focal weakness or numbness, fever, chills, nausea, vomiting, diarrhea, abdominal pain , urinary symptoms, chest pain, palpitations, shortness of breath, cough, or any other complaints. Patient's son states she has been weak and losing weight for longer than 2 weeks. She reports a chronic lower back pain. She reports urinary frequency but denies flank pain. No rash. PMD: Dr. Browne Time/Duration: Other (2 weeks) Symptom Course: Unchanged Quality: Other Context: Home Past Medical History - Provider Review Nursing Documentation Reviewed: Yes - Infectious Disease Hx of Infectious Diseases: None - Tetanus Immunization Tetanus Immunization: Unknown - Past Medical History Past Medical History: No Previous - Cardiac Hx Hypertension: Yes - Pulmonary Hx Respiratory Disorders: Yes Hx Asthma: Yes - Neurological Hx Neurological Disorder: Yes - HEENT Hx HEENT Disorder: No Hx Cataracts: Yes - Renal Hx Renal Disorder: Yes Hx Kidney Stones: Yes Other/Comment: RENAL CALCULI - Endocrine/Metabolic Hx Diabetes Mellitus Type 2: Yes (NIDD) - Hematological/Oncological Hx Blood Disorders: Yes - Integumentary Hx Dermatological Disorder: No - Musculoskeletal/Rheumatological Hx Musculoskeletal Disorders: Yes (RIB INJURY) Hx Back Pain: Yes Hx Falls: Yes (FELL 12-21-17 SLIPPED OFF BED.ATTEMPTED TO GET UP.) Hx Fractures: Yes (ELBOW) Hx Unsteady Gait: Yes (CANE) Other/Comment: CERVICAL RADICULOPATHY - Gastrointestinal Hx Gastrointestinal Disorders: Yes Hx Crohn's Disease: Yes Other/Comment: CHOLELITHAISIS. GASTRIC BYPASS - Genitourinary/Gynecological Hx Genitourinary Disorders: Yes (PYELONEPHRITIS,PSEUDOMONAS UTI,RENAL CA) Other/Comment: kidney stone - Psychiatric Hx Psychophysiologic Disorder: Yes Hx Depression: Yes Hx Emotional Abuse: No Hx Physical Abuse: No Hx Substance Use: No - Surgical History Hx Cholecystectomy: Yes Hx Gastric Bypass Surgery: Yes Other/Comment: kidney surgery - Anesthesia Hx Anesthesia: Yes Hx Anesthesia Reactions: No Hx Malignant Hyperthermia: No - Suicidal Assessment Feels Threatened In Home Enviroment: No Family/Social History - Physician Review Nursing Documentation Reviewed: Yes Family/Social History: No Known Family HX Smoking Status: Never Smoked Hx Alcohol Use: No Hx Substance Use: No Hx Substance Use Treatment: No Allergies/Home Meds Allergies/Adverse Reactions: Allergies cashew nut Allergy (Verified 12/21/16 18:18) SWELLING latex Allergy (Verified 12/21/16 18:18) ANAPHYLAXIS naproxen Adverse Reaction (Verified 12/21/16 18:18) SWELLING AVOIDS cashews Allergy (Uncoded 12/21/16 18:18) SWELLING cats Allergy (Uncoded 12/21/16 18:18) RASH Home Medications: Home Meds Medication Instructions Recorded Confirmed Sertraline [Zoloft] 100 mg PO DAILY 08/20/14 03/09/17 ALPRAZolam [Xanax] 0.25 mg PO PRN PRN 10/25/15 03/09/17 Mesalamine [Pentasa] 500 mg PO BID 11/19/15 03/09/17 Glyburide/Metformin HCl 1 tab PO QID 03/29/16 03/09/17 [Glyburide-Metformin 5-500 mg] Gabapentin [Neurontin] 300 mg PO TID 03/31/16 03/09/17 Hydrochlorothiazide 25 mg PO DAILY 04/27/16 03/09/17 Potassium Chloride [K-Dur 20 mEq 20 meq PO QID 04/27/16 03/09/17 ER Tab] Primidone 50 mg PO HS 04/27/16 03/09/17 Ondansetron HCl [Zofran] 4 mg PO PRN PRN 09/08/16 03/09/17 Review of Systems - Review of Systems Constitutional: Fatigue, Weight Change, Other (Unsteady on feet). absent: Fevers, Night Sweats Eyes: absent: Vision Changes, Photophobia, Eye Pain ENT: absent: Tinnitus, Voice Changes Respiratory: absent: SOB, Cough, Sputum Cardiovascular: absent: Chest Pain, Palpitations, Calf Pain, BANGURA Gastrointestinal: absent: Abdominal Pain, Constipation, Diarrhea, Nausea, Vomiting Genitourinary Female: Frequency. absent: Dysuria, Hematuria, Urine Output Changes, Vaginal Bleeding, Vaginal Discharge Musculoskeletal: Back Pain. absent: Neck Pain Skin: absent: Rash Neurological: Headache. absent: Dizziness, Focal Weakness (/numbness) Endocrine: absent: Polyuria Psychiatric: absent: Depression Physical Exam - Physical Exam Narrative Physical Exam (Text): Head: Atraumatic. Normocephalic. Eyes: PERRL. EOMI. Conjunctivae are not pale. ENT: Mucous membranes are dry, no uvular deviation, no facial swelling or discharge. Oropharynx is clear and symmetric. Neck: Supple. Full ROM. No JVD. No lymphadenopathy. No meningeal signs. Cardiovascular: Regular rate. Regular rhythm. No murmurs, rubs, or gallops. Distal pulses are 2+ and symmetric. Pulmonary/Chest: No evidence of respiratory distress. Clear to auscultation bilaterally. No wheezing, rales or rhonchi. Abdominal: Abdomen soft and nontender. There is large left abdominal hernia that is soft and reducible with no peritoneal signs. No pulsatile masses. Normoactive bowel sounds. Rectal: no melena or gross bleeding Back: No CVA tenderness. Paraspinal lower lumbar pain. Extremities: No edema. No cyanosis. No clubbing. Full range of motion in all extremities. No calf tenderness. Skin: Skin is pale. Neurological: Alert, awake. No meningeal signs. Motor and sensory exam intact. Psychiatric: Good eye contact. Normal interaction, affect, and behavior. Vital Signs Reviewed: Yes Vital Signs Temp Pulse Resp BP Pulse Ox 03/09/17 15:30 98.6 F 83 18 122/68 99 Temperature: Afebrile Blood Pressure: Normal Pulse: Regular Respiratory Rate: Normal Appearance: Positive for: Non-Toxic, Comfortable, Ill-Appearing Pain Distress: Mild Mental Status: Positive for: Alert and Oriented X 3 Medical Decision Making ED Course and Treatment: 03/09/17 15:41 Impression: A 71 year old female reports feeling unsteady on feet when ambulating. Patient notes intermittent headaches. Differential Diagnosis included but are not limited to: sepsis, neurologic disorder, dehydration, cad, cancer, colitis, uti Plan: -- Head CT -- Chest xray -- EKG -- Labs -- Blood and Urine culture -- Urinalysis -- Reassess and disposition Progress Notes: Patient's history supplemented by family. At rest, patient has no focal deficits , although a history of frequent near falls reported, although no injury reported patient states she "catches myself" before she falls. She has an abdominal hernia that is chronic, nontender. Currently afebrile. No cva tenderness. Weight loss is reported. No diarrhea. No nausea. No chest pain or sob. Serial neuro exams in ED she remains intact. Report Date : 03/09/2017 17:25:24 PROCEDURE: CT HEAD WITHOUT CONTRAST. Dictator : Maria Isabel Gonsalez MD IMPRESSION: Mild generalized atrophy. Scattered nonspecific white matter changes. Urinalysis suggestive of UTI. Her lactate is elevated. CODE Sepsis called as suspicion of infection, UTI, elevated lactate. IV antibiotics initiated as well as iv fluid bolus. Cannot exclude malignancy as history of progressive weight loss. Oral potassium administered, case d/w Dr. Fish covering for Dr. Browne, accepts admission. Will consult ID, neuro, continue serial exams. Treatment plan d/w patient and family. 03/09/17 22:50 - Lab Interpretations Lab Results: 03/09/17 16:20 03/09/17 16:20 Lab Results 03/09/17 16:38: Urine Color Yellow, Urine Appearance Cloudy, Urine pH 6.0, Ur Specific [place] 1.015, Urine Protein 30 H, Urine Glucose (UA) 100 H, Urine Ketones Negative, Urine Blood Large H, Urine Nitrate Positive H, Urine Bilirubin Negative, Urine Urobilinogen 0.2, Ur Leukocyte Esterase Large H, Urine RBC 1 - 3, Urine WBC Tntc, Ur Epithelial Cells 4 - 5, Urine Bacteria Many 03/09/17 16:30: Phosphorus 2.2 L, Magnesium 1.8 03/09/17 16:20: Sodium 137, Chloride 109 H, Potassium 3.3 L, Carbon Dioxide 19 L , Anion Gap 12, BUN 13, Creatinine 0.8, Est GFR ( Amer) > 60, Est GFR ( Non-Af Amer) > 60, Random Glucose 193 H, Calcium 8.3 L, Total Bilirubin 0.8, AST 29, ALT 34, Alkaline Phosphatase 102, Lactate Dehydrogenase 387, Total Creatine Kinase 194, Troponin I < 0.01, NT-Pro-B Natriuret Pep 210, Total Protein 6.6, Albumin 3.0, Globulin 3.6, Albumin/Globulin Ratio 0.8 L 03/09/17 16:20: PT 15.0 H, INR 1.39 H, APTT 30.3 03/09/17 16:20: WBC 3.5 L D, RBC 3.29 L, Hgb 10.1 L, Hct 30.1 L, MCV 91.5, MCH 30.7, MCHC 33.6, RDW 14.7 H, Plt Count 78 L, MPV 10.0, Gran % 70.9 H, Lymph % ( Auto) 14.0 L, Angelina % (Auto) 11.1 H, Eos % (Auto) 3.4, Baso % (Auto) 0.6, Gran # 2.49, Lymph # 0.5 L, Angelina # 0.4, Eos # 0.1, Baso # 0.02 03/09/17 16:20: pO2 44, VBG pH 7.28 L, VBG pCO2 40.0, VBG HCO3 18.8 L, VBG Total CO2 20.0 L, VBG O2 Sat (Calc) 82.4 H, VBG Base Excess -7.5 L, VBG Potassium 3.6, Sodium 137.0, Chloride 111.0 H, Glucose 209 H, Lactate 3.2 H, FiO2 21.0, Venous Blood Potassium 3.6 I have reviewed the lab results: Yes - RAD Interpretation Radiology Orders: 03/09/17 15:44 HEAD W/O CONTRAST [CT] Stat CHEST ONE VIEW [RAD] Stat - EKG Interpretation EKG Interpretation (Text): EKG at 16:27 normal sinus rhythm rate of [address] elevations Interpreted by ED Physician: Yes Type: 12 lead EKG - Medication Orders Current Medication Orders: Discontinued Medications Ceftriaxone Sodium (Rocephin 1 Gram Ivpb) 1 gm in 100 mls @ 200 mls/hr IVPB STAT STA PRN Reason: Protocol Stop: 03/09/17 17:38 Last Admin: 03/09/17 17:30 Dose: 200 mls/hr Sodium Chloride 1,630 ml/ IV (SUPPLIES) 1,630 mls @ 3,265.86 mls/hr IV ONCE ONE PRN Reason: 60 ML/KG/HR Stop: 03/09/17 17:10 Last Admin: 03/09/17 17:32 Dose: 3,265.86 mls/hr Potassium Chloride (K-Dur 20 Meq Er Tab) 40 meq PO STAT STA Stop: 03/09/17 17:12 Last Admin: 03/09/17 17:30 Dose: 40 meq - Scribe Statement The provider has reviewed the documentation as recorded by the Isaíasibyuliana Poole Provider Scribe Attestation: All medical record entries made by the Isaíasibyuliana were at my direction and personally dictated by me. I have reviewed the chart and agree that the record accurately reflects my personal performance of the history, physical exam, medical decision making, and the department course for this patient. I have also personally directed, reviewed, and agree with the discharge instructions and disposition. Disposition/Present on Arrival - Present on Arrival Any Indicators Present on Arrival: No History of DVT/PE: No History of Uncontrolled Diabetes: No Urinary Catheter: No History of Decub. Ulcer: No History Surgical Site Infection Following: None - Disposition Have Diagnosis and Disposition been Completed?: Yes Diagnosis: UTI (urinary tract infection), Sepsis, Near syncope, Weight loss, Abdominal hernia, Hypokalemia Disposition: HOSPITALIZED Disposition Time: 18:00 Patient Plan: Admission, Telemetry Patient Problems: Current Active Problems Problem Status Onset Abdominal hernia Acute Near syncope Acute Sepsis Acute UTI (urinary tract infection) Acute Weight loss Acute Condition: SERIOUS
[2017-03-09 16:35] LABS: BASO # 0.02 K/mm3 (0.0-2.0); BASO % 0.6 % (0.0-3.0); EOS # 0.1 (0.0-0.7); EOS % 3.4 % (1.5-5.0); GRAN # 2.49 (1.4-6.5); GRAN % 70.9 % (50.0-68.0); HEMOGLOBIN 10.1 gm/dL (12.0-16.0); LYMPH # 0.5 (1.2-3.4); MEAN CELL VOLUME 91.5 fL (80.0-105.0); MEAN CORPUSCULAR HEMOGLOBIN 30.7 pg (25.0-35.0); MEAN CORPUSCULAR HGB CONC 33.6 g/dl (31.0-37.0); MONO # 0.4 (0.1-0.6); MONO % 11.1 % (1.0-6.0); PLATELET COUNT 78 10^3/uL (120.0-450.0); RBC 3.29 10^6/uL (3.5-6.1); RED CELL DISTRIBUTION WIDTH 14.7 % (11.5-14.5); WHITE BLOOD COUNT 3.5 10^3/ul (4.5-11.0)
[2017-03-09 16:47] LABS: ALB/GLOB RATIO 0.8 (1.1-1.8); ALT/SGPT 34 U/L (7-56); AST/SGOT 29 U/L (15-39); BLOOD UREA NITROGEN 13 mg/dL (7-21); CALCIUM 8.3 mg/dL (8.4-10.5); GFR AFRICAN-AMERICAN > 60; GFR NON-AFRICAN AMERICAN > 60
[2017-03-09 16:48] LABS: VENOUS BLOOD GAS BASE EXCESS -7.5 mmol/L (0.0-2.0); VENOUS BLOOD GAS PO2 44 mm/Hg (30-55); VENOUS BLOOD PH 7.28 (7.32-7.43)
[2017-03-09 16:49] LABS: INR 1.39 (0.93-1.08); PARTIAL THROMBOPLASTIN TIME 30.3 Seconds (23.7-30.8)
[2017-03-09 16:53] LABS: URINE BILIRUBIN NEGATIVE (NEGATIVE); URINE BLOOD LARGE (NEGATIVE); URINE GLUCOSE (UA) 100 mg/dL (NEGATIVE); URINE LEUKOCYTE ESTERASE LARGE Leu/uL (NEGATIVE); URINE NITRATE POSITIVE (NEGATIVE); URINE PROTEIN 30 mg/dL (<30 mg/dL); URINE UROBILINOGEN 0.2 E.U./dL (<1 E.U./dL)
[2017-03-09 16:55] LABS: URINE APPEARANCE CLOUDY (CLEAR); URINE COLOR YELLOW (YELLOW)
[2017-03-09 16:58] LABS: B-TYPE NATRIURETIC PEPTIDE 210 pg/mL (0-450)
[2017-03-09 17:07] LABS: TROPONIN I < 0.01 ng/mL
[2017-03-09] MEDS ORDERED: cefTRIAXone 1 gm 1 GM/100 ML BAG IVPB STA (17:09)
[2017-03-09] MEDS ORDERED: Potassium Chloride 20 mEq ER Tab PO STA (17:11)
[2017-03-09 17:16] LABS: URINE BACTERIA MANY (NEG); URINE WBC TNTC /hpf (0-6)
--- NOTE | 2017-03-09 17:27 | CT ---
PROCEDURE: CT HEAD WITHOUT CONTRAST. HISTORY: gait instability COMPARISON: Noncontrast head CT performed 12/21/16 TECHNIQUE: Axial computed tomography images were obtained through the head/brain without intravenous contrast. Radiation dose: Total exam DLP = 725.84 mGy-cm. This CT exam was performed using one or more of the following dose reduction techniques: Automated exposure control, adjustment of the mA and/or kV according to patient size, and/or use of iterative reconstruction technique. FINDINGS: Streak artifact obscures evaluation of the skullbase. HEMORRHAGE: No intracranial hemorrhage. BRAIN: Diffuse atrophy with prominence of the ventricles and sulci noted. No mass effect or edema. Intracranial atherosclerotic calcifications. Mild scattered white matter hypodensities, which are nonspecific, but often seen with chronic microvascular ischemic disease. Please note that MRI with diffusion imaging is more sensitive in the detection of acute ischemic event. VENTRICLES: No hydrocephalus. CALVARIUM: Unremarkable. PARANASAL SINUSES: Unremarkable as visualized. No significant inflammatory changes. MASTOID AIR CELLS: Unremarkable as visualized. No inflammatory changes. OTHER FINDINGS: None. IMPRESSION: Mild generalized atrophy. Scattered nonspecific white matter changes.
[2017-03-09 17:55] LABS: MAGNESIUM 1.8 mg/dL (1.7-2.2)
[2017-03-09 20:04] LABS: VENOUS BLOOD GAS BASE EXCESS -6.9 mmol/L (0.0-2.0); VENOUS BLOOD GAS PO2 37 mm/Hg (30-55); VENOUS BLOOD PH 7.29 (7.32-7.43)
--- NOTE | 2017-03-09 23:05 | PCM.SEPTIC ---
Sepsis Progress Note - Reassessment Type Date of Evaluation: 03/09/17 Time of Evaluation: 23:03 Reassessment Type: Non-invasive reassessment - Non Invasive Reassessment Were the most recent vital sign reviewed: Yes Vital Sign (Latest): Temp Pulse Resp BP Pulse Ox 98.6 F 83 18 122/68 99 03/09/17 15:30 03/09/17 15:30 03/09/17 15:30 03/09/17 15:30 03/09/17 15:30 Cardiovascular: Yes: Regular Rate, Rhythm Respiratory: Yes: Normal Breath Sounds Capillary Refill: Normal (Less than 2 sec) Pulses: Normal Radial, Normal Dorsalis Pedis Skin: Normal Color
--- NOTE | 2017-03-09 23:21 | CP.PCM.HP ---
History of Present Illness - History of Present Illness History of Present Illness: Ms. Ortiz is a 71 year old female with a past medical history of Chron's disease, HTN, recurrent UTIs who presents today with complaints of losing balance for the past two months. Patient states that from time to time, as she walks, she eventually loses balances and starts falling to one side. Up until now patient has not fallen or passed out, so currently she just has the sensation. Patient also mentions a sharp pain she has from time to time that lasts for seconds from time to time.Patient denies blurry vision, tinnitus, palpitations, chest pain, diaphoresis, emotional distress. Patient admits to incontinence in the past three months stating that she has not had an accident in public but wears depends just in case. Review of Systems Constitutional: pt denies fever, chills, generalized weakness ENT: pt denies dysphagia, ofalgia, hearing deficit, rhinorrhea Eyes: pt denies sudden loss of vision, diplopia, blurred vision MSK: pt denies muscle stiffness, joint pain, extremity cramping Cardio: pt denies sob, palpitations Pulm: pt denies cough, hemoptysis, wheeze GI: pt denies loss of appetite, abdominal pain, constipation, melena, n/v/d : pt denies burning on urination, urinary frequency, hematuria, urinary urgency Neuro: pt denies paresis, paresthesia, dizziness Derm: pt denies skin changes, lesions, nail changes Endo: pt denies intolerance to heat/cold, diaphoresis, night sweats, polydipsia Psych: pt denies anxiety, depression, mood changes Physical Exam Constitutional: thin female, a&o x 4, nad Head and Neck: neck supple, no jvd, trachea midline, no cervical/head mass Eyes: varun, nonicteric sclera, eom intact ENT: auditory acuity grossly intact, throat not congested, no nasal deformity Cardio: no murmurs, no gallops , no carotid bruit, nml s1 and s2 Pulm: no accessory muscle use, equal nml breath sounds bilaterally, ctab Abd: s/nt/nd, nbs x 4 q, no palpable masses Derm: no rashes, no ulcers, no lesions Extr: no edema, no cyanosis, no calf tenderness, no lesions Neuro: cn II-XII grossly intact, ue and le 3+ muscle strength, + Romberg, +Heel to toe, negative finger to nose exam bilaterally, no los ue, le bilaterally and core Vascular- negative orthostatics Present on Admission - Present on Admission Any Indicators Present on Admission: No Past Patient History - Infectious Disease Hx of Infectious Diseases: None - Tetanus Immunizations Tetanus Immunization: Unknown - Past Social History Smoking Status: Never Smoked - CARDIAC Hx Hypertension: Yes - PULMONARY Hx Respiratory Disorders: Yes Hx Asthma: Yes - NEUROLOGICAL Hx Neurological Disorder: Yes - HEENT Hx HEENT Problems: No Hx Cataracts: Yes - RENAL Hx Chronic Kidney Disease: Yes Hx Kidney Stones: Yes Other/Comment: RENAL CALCULI - ENDOCRINE/METABOLIC Hx Diabetes Mellitus Type 2: Yes (NIDD) - HEMATOLOGICAL/ONCOLOGICAL Hx Blood Disorders: Yes - INTEGUMENTARY Hx Dermatological Problems: No - MUSCULOSKELETAL/RHEUMATOLOGICAL Hx Musculoskeletal Disorders: Yes (RIB INJURY) Hx Back Pain: Yes Hx Falls: Yes (FELL 12-21-16 SLIPPED OFF BED.ATTEMPTED TO GET UP.) Hx Fractures: Yes (ELBOW) Hx Unsteady Gait: Yes (CANE) Other/Comment: CERVICAL RADICULOPATHY - GASTROINTESTINAL Hx Gastrointestinal Disorders: Yes Hx Crohn's Disease: Yes Other/Comment: CHOLELITHAISIS. GASTRIC BYPASS - GENITOURINARY/GYNECOLOGICAL Hx Genitourinary Disorders: Yes (PYELONEPHRITIS,PSEUDOMONAS UTI,RENAL CA) Other/Comment: kidney stone - PSYCHIATRIC Hx Psychophysiologic Disorder: Yes Hx Depression: Yes Hx Emotional Abuse: No Hx Physical Abuse: No Hx Substance Use: No - SURGICAL HISTORY Hx Cholecystectomy: Yes Hx Gastric Bypass Surgery: Yes Other/Comment: kidney surgery - ANESTHESIA Hx Anesthesia: Yes Hx Anesthesia Reactions: No Hx Malignant Hyperthermia: No Meds Allergies/Adverse Reactions: Allergies Allergy/AdvReac Type Severity Reaction Status Date / Time cashew nut Allergy SWELLING Verified 12/21/16 18:18 latex Allergy ANAPHYLAXIS Verified 12/21/16 18:18 naproxen AdvReac SWELLING Verified 12/21/16 18:18 cashews Allergy SWELLING Uncoded 12/21/16 18:18 cats Allergy RASH Uncoded 12/21/16 18:18 Results - Vital Signs Recent Vital Signs: Last Vital Signs Temp 98.6 F 03/09/17 15:30 Pulse 71 03/09/17 21:20 Resp 16 03/09/17 21:20 BP 123/83 03/09/17 21:20 Pulse Ox 100 03/09/17 21:20 - Labs Result Diagrams: 03/09/17 16:20 03/09/17 16:20 Labs: Laboratory Results - last 24 hr 03/09/17 19:54 pO2 37 VBG pH 7.29 L VBG pCO2 40.0 VBG HCO3 19.2 L VBG Total CO2 20.4 L VBG O2 Sat (Calc) 70.0 H VBG Base Excess -6.9 L VBG Potassium 3.4 L Sodium 139.0 Chloride 115.0 H Glucose 131 H Lactate 2.4 H FiO2 21.0 Venous Blood Potassium 3.4 L
[2017-03-09] MEDS: Piperacillin/Tazobact 3.375 gm 100 ML IVPB SCH (23:50)
[2017-03-10] MEDS ORDERED: Acetaminophen 650mg/20.3ml solution UD PO STA (00:32)
[2017-03-10] MEDS: Piperacillin/Tazobact 3.375 gm 100 ML IVPB SCH ×3 (05:25→17:16)
[2017-03-10 05:49] VITALS: O2SAT 97
[2017-03-10] MEDS: Insulin Lispro (humaLOG) LOW Coverage SC SCH ×3 (08:20→17:10)
--- NOTE | 2017-03-10 08:31 | RAD ---
PROCEDURE: CHEST RADIOGRAPH, 1 VIEW HISTORY: weakness COMPARISON: Comparison is made to the previous study dated 12/21/2016 FINDINGS: LUNGS: No evidence of new infiltrate or consolidation in the lungs. Mild hyperinflation of the lungs is noted again. PLEURA: No pneumothorax or pleural fluid seen. CARDIOVASCULAR: Normal. OSSEOUS STRUCTURES: No significant abnormalities. VISUALIZED UPPER ABDOMEN: Normal. OTHER FINDINGS: None. IMPRESSION: No significant interval change since the previous exam noted.
--- NOTE | 2017-03-10 09:58 | CP.PCM.CON ---
<Blayne Quinonez - Last Filed: 03/10/17 12:43> History of Present Illness - History of Present Illness History of Present Illness: PGY-[address] Matt Brower's Neurology Service: Reason for consultation: Near Syncope This is a 71 year old female with PMHx Diabetes type 2, Chron's disease, pyelonephritis, nephrolithiasis, recurrent UTI, pancytopenia, depression who presented to the hospital complaining of trouble keeping her balance. This has been ongoing for the last 2 months. Patient states that she would intermittently lose her balance and start leaning over to one side; however, she has been able to keep herself from experiencing any falls. Patient experiences transient weakness during these episodes. There was no LOC during these episodes, but the patient endorses lightheadedness. Patient also complains of occasional dizziness that she would experience while sitting down. Patient does not feel that the room is spinning. Of note, patient also complains of intermittent sharp pain on the forehead that lasts for a few seconds. The patient has also been experiencing urinary incontinence for the last 3 months. Patient denies headache, neck pain, CP, SOB, dysuria, abdominal pain, constipation. Admits unintentional weight loss, back pain, loose stools. Patient states that she has trouble swallowing food and drink and will cough at times when eating. PMHx: DM type 2, nephrolithiasis, pyelonephritis, recurrent UTI's, hypokalemia, Crohn's disease, depression PSHx: Cholecystectomy, gastric bypass surgery, tubal ligation Allergy: Cashews, Latex, Naproxen, Cat dander Social Hx: Denies tobacco, alcohol and drug use PMD: Dr. Browne Review of Systems - Constitutional Constitutional: Weight Loss, Weakness (intermittent). absent: Headache - EENT Eyes: absent: Change in Vision Ears: absent: Decreased Hearing - Cardiovascular Cardiovascular: absent: Chest Pain - Respiratory Respiratory: absent: Dyspnea - Gastrointestinal Gastrointestinal: absent: Abdominal Pain, Constipation - Musculoskeletal Musculoskeletal: Back Pain (chronic). absent: Neck Pain - Neurological Neurological: absent: Numbness, Headaches, Syncope, Tingling - Endocrine Endocrine: absent: Palpitations Past Patient History - Infectious Disease Hx of Infectious Diseases: None - Tetanus Immunizations Tetanus Immunization: Unknown - Past Social History Smoking Status: Never Smoked - CARDIAC Hx Hypertension: Yes - PULMONARY Hx Respiratory Disorders: Yes Hx Asthma: Yes - NEUROLOGICAL Hx Neurological Disorder: Yes - HEENT Hx HEENT Problems: No Hx Cataracts: Yes - RENAL Hx Chronic Kidney Disease: Yes Hx Kidney Stones: Yes Other/Comment: RENAL CALCULI - ENDOCRINE/METABOLIC Hx Diabetes Mellitus Type 2: Yes (NIDD) - HEMATOLOGICAL/ONCOLOGICAL Hx Blood Disorders: Yes - INTEGUMENTARY Hx Dermatological Problems: No - MUSCULOSKELETAL/RHEUMATOLOGICAL Hx Musculoskeletal Disorders: Yes (RIB INJURY) Hx Back Pain: Yes Hx Falls: Yes (FELL 12-21-16 SLIPPED OFF BED.ATTEMPTED TO GET UP.) Hx Fractures: Yes (ELBOW) Hx Unsteady Gait: Yes (CANE) Other/Comment: CERVICAL RADICULOPATHY - GASTROINTESTINAL Hx Gastrointestinal Disorders: Yes Hx Crohn's Disease: Yes Other/Comment: CHOLELITHAISIS. GASTRIC BYPASS - GENITOURINARY/GYNECOLOGICAL Hx Genitourinary Disorders: Yes (PYELONEPHRITIS,PSEUDOMONAS UTI,RENAL CA) Other/Comment: kidney stone - PSYCHIATRIC Hx Psychophysiologic Disorder: Yes Hx Depression: Yes Hx Emotional Abuse: No Hx Physical Abuse: No Hx Substance Use: No - SURGICAL HISTORY Hx Cholecystectomy: Yes Hx Gastric Bypass Surgery: Yes Other/Comment: kidney surgery - ANESTHESIA Hx Anesthesia: Yes Hx Anesthesia Reactions: No Hx Malignant Hyperthermia: No Meds Allergies/Adverse Reactions: Allergies Allergy/AdvReac Type Severity Reaction Status Date / Time cashew nut Allergy SWELLING Verified 12/21/16 18:18 latex Allergy ANAPHYLAXIS Verified 12/21/16 18:18 naproxen AdvReac SWELLING Verified 12/21/16 18:18 cashews Allergy SWELLING Uncoded 12/21/16 18:18 cats Allergy RASH Uncoded 12/21/16 18:18 - Medications Medications: Current Medications Acetaminophen (Tylenol 325mg Tab) 650 mg PO Q6H PRN PRN Reason: Pain, Mild (1-3) Last Admin: 03/10/17 01:06 Dose: 650 mg Piperacillin Sod/Tazobactam Sod (Zosyn 3.375 In Ns 100ml) 100 mls @ 200 mls/hr IVPB Q6 [facility]ES PRN Reason: Protocol Stop: 03/17/17 00:01 Last Admin: 03/10/17 05:25 Dose: 200 mls/hr Insulin Human Lispro (Humalog Low) 0 units SC ACHS [facility] PRN Reason: Protocol Last Admin: 03/10/17 08:20 Dose: Not Given Mesalamine (Pentasa) 500 mg PO BID [facility] Ondansetron HCl (Zofran Inj) 4 mg IVP Q6H PRN PRN Reason: Nausea/Vomiting Potassium Chloride (K-Dur 20 Meq Er Tab) 20 meq PO QID [facility] Potassium Phos/Sodium Phos (Neutra-Phos) 1 pkt PO TID [facility] Primidone (Mysoline) 50 mg PO HS [facility] Sertraline HCl (Zoloft) 100 mg PO DAILY [facility] Physical Exam - Constitutional Appears: Non-toxic, No Acute Distress - Head Exam Head Exam: ATRAUMATIC, NORMAL INSPECTION, NORMOCEPHALIC - Eye Exam Eye Exam: EOMI, PERRL - ENT Exam ENT Exam: Mucous Membranes Moist - Respiratory Exam Respiratory Exam: Clear to Auscultation Bilateral - Cardiovascular Exam Cardiovascular Exam: REGULAR RHYTHM - GI/Abdominal Exam GI & Abdominal Exam: Normal Bowel Sounds, Soft - Neurological Exam Neurological exam: Alert, CN II-XII Intact, Oriented x3 Additional comments: Manual Muscle strength testing 5/5 bilateral upper and lower extremities Reflexes 1/4 bilateral upper and lower extremities Normal finger to nose testing Negative Romberg Negative pronator drift Negative Babinski's test Results - Vital Signs Recent Vital Signs: Last Vital Signs Temp 97.9 F 03/10/17 05:47 Pulse 66 03/10/17 05:47 Resp 19 03/10/17 05:47 BP 95/45 L 03/10/17 05:47 Pulse Ox 97 03/10/17 05:47 - Labs Result Diagrams: 03/09/17 16:20 03/09/17 16:20 Labs: Laboratory Results - last 24 hr 03/09/17 19:54 pO2 37 VBG pH 7.29 L VBG pCO2 40.0 VBG HCO3 19.2 L VBG Total CO2 20.4 L VBG O2 Sat (Calc) 70.0 H VBG Base Excess -6.9 L VBG Potassium 3.4 L Sodium 139.0 Chloride 115.0 H Glucose 131 H Lactate 2.4 H FiO2 21.0 Venous Blood Potassium 3.4 L Assessment & Plan - Assessment and Plan (Free Text) Assessment: This is a 71 year old female with PMHx Diabetes type 2, Chron's disease, pyelonephritis, nephrolithiasis, recurrent UTI, pancytopenia, depression who presented to the hospital complaining of poor balance. This could be due to transient episodes of hypoperfusion in the brain as well as diabetic neuropathy and superimposed muscle weakness. Orthostatic vitals were negative. Plan: 1) PT evaluation for gait instability. 2) Maintain adequate hydration with fluids. 3) Maintain SBP above 120 mmHg. 4) Monitor and correct electrolytes. 5) Maintain blood glucose between 140-180. 6) Fall precautions. Case discussed with Dr. Brower - Date & Time Date: 03/10/17 Time: 12:49 <Matt Brower - Last Filed: 03/10/17 16:19> Meds - Medications Medications: Current Medications Acetaminophen (Tylenol 325mg Tab) 650 mg PO Q6H PRN PRN Reason: Pain, Mild (1-3) Last Admin: 03/10/17 01:06 Dose: 650 mg Piperacillin Sod/Tazobactam Sod (Zosyn 3.375 In Ns 100ml) 100 mls @ 200 mls/hr IVPB Q6 AGNES PRN Reason: Protocol Stop: 03/17/17 00:01 Last Admin: 03/10/17 13:12 Dose: 200 mls/hr Sodium Chloride (Sodium Chloride 0.9%) 1,000 mls @ 80 mls/hr IV .[id number] [facility] Last Admin: 03/10/17 13:06 Dose: 80 mls/hr Insulin Human Lispro (Humalog Low) 0 units SC ACHS [facility] PRN Reason: Protocol Last Admin: 03/10/17 11:38 Dose: 3 units Mesalamine (Pentasa) 500 mg PO BID [facility] Last Admin: 03/10/17 10:37 Dose: 500 mg Ondansetron HCl (Zofran Inj) 4 mg IVP Q6H PRN PRN Reason: Nausea/Vomiting Potassium Chloride (K-Dur 20 Meq Er Tab) 20 meq PO QID [facility] Last Admin: 03/10/17 13:54 Dose: 20 meq Potassium Phos/Sodium Phos (Neutra-Phos) 1 pkt PO TID [facility] Last Admin: 03/10/17 13:54 Dose: 1 pkt Primidone (Mysoline) 50 mg PO HS [facility] Sertraline HCl (Zoloft) 100 mg PO DAILY [facility] Last Admin: 03/10/17 10:37 Dose: 100 mg Results - Vital Signs Recent Vital Signs: Last Vital Signs Temp 98.4 F 03/10/17 11:41 Pulse 70 03/10/17 11:41 Resp 20 03/10/17 11:41 BP 106/84 03/10/17 11:41 Pulse Ox 97 03/10/17 05:47 - Labs Result Diagrams: 03/09/17 16:20 03/09/17 16:20 Labs: Laboratory Results - last 24 hr 03/09/17 03/09/17 03/10/17 19:54 22:22 07:28 pO2 37 VBG pH 7.29 L VBG pCO2 40.0 VBG HCO3 19.2 L VBG Total CO2 20.4 L VBG O2 Sat (Calc) 70.0 H VBG Base Excess -6.9 L VBG Potassium 3.4 L Sodium 139.0 Chloride 115.0 H Glucose 131 H Lactate 2.4 H FiO2 21.0 POC Glucose (mg/dL) 157 H 96 Venous Blood Potassium 3.4 L Attending/Attestation - Attestation I have personally seen and examined this patient.: Yes I have fully participated in the care of the patient.: Yes I have reviewed all pertinent clinical information: Yes
[2017-03-10] MEDS ORDERED: Potassium & Sodium Phosphate PO SCH (10:00)
--- NOTE | 2017-03-10 10:00 | CP.PCM.CON ---
History of Present Illness - History of Present Illness History of Present Illness: 71 year old female with PMH of Crohn's disease, DM, history of pyelonephritis, bilateral nephrolithiasis, S/P cholecystectomy, S/P tubal ligation, history of right sided pyelonephritis associated with nephrolithiasis with E. faecalis came in to [facility] because of feeling of weakness for the past week and pre-syncopal episodes. She is also complaining of some dysuria, but no hematuria, no flank pain, no nausea, no vomiting, no headache or dizziness, no chest pain, no SOB, no abdominal pain, no diarrhea. Urinalysis in the ED is showing pyuria. Infectious Diseases consult is requested to further evaluate and manage. Review of Systems - Review of Systems All systems: reviewed and no additional remarkable complaints except (as per HPI ) Past Patient History - Infectious Disease Hx of Infectious Diseases: None - Tetanus Immunizations Tetanus Immunization: Unknown - Past Social History Smoking Status: Never Smoked - CARDIAC Hx Hypertension: Yes - PULMONARY Hx Respiratory Disorders: Yes Hx Asthma: Yes - NEUROLOGICAL Hx Neurological Disorder: Yes - HEENT Hx HEENT Problems: No Hx Cataracts: Yes - RENAL Hx Chronic Kidney Disease: Yes Hx Kidney Stones: Yes Other/Comment: RENAL CALCULI - ENDOCRINE/METABOLIC Hx Diabetes Mellitus Type 2: Yes (NIDD) - HEMATOLOGICAL/ONCOLOGICAL Hx Blood Disorders: Yes - INTEGUMENTARY Hx Dermatological Problems: No - MUSCULOSKELETAL/RHEUMATOLOGICAL Hx Musculoskeletal Disorders: Yes (RIB INJURY) Hx Back Pain: Yes Hx Falls: Yes (FELL 4-17 SLIPPED OFF BED.ATTEMPTED TO GET UP.) Hx Fractures: Yes (ELBOW) Hx Unsteady Gait: Yes (CANE) Other/Comment: CERVICAL RADICULOPATHY - GASTROINTESTINAL Hx Gastrointestinal Disorders: Yes Hx Crohn's Disease: Yes Other/Comment: CHOLELITHAISIS. GASTRIC BYPASS - GENITOURINARY/GYNECOLOGICAL Hx Genitourinary Disorders: Yes (PYELONEPHRITIS,PSEUDOMONAS UTI,RENAL CA) Other/Comment: kidney stone - PSYCHIATRIC Hx Psychophysiologic Disorder: Yes Hx Depression: Yes Hx Emotional Abuse: No Hx Physical Abuse: No Hx Substance Use: No - SURGICAL HISTORY Hx Cholecystectomy: Yes Hx Gastric Bypass Surgery: Yes Other/Comment: kidney surgery - ANESTHESIA Hx Anesthesia: Yes Hx Anesthesia Reactions: No Hx Malignant Hyperthermia: No Meds Allergies/Adverse Reactions: Allergies Allergy/AdvReac Type Severity Reaction Status Date / Time cashew nut Allergy SWELLING Verified 12/21/16 18:18 latex Allergy ANAPHYLAXIS Verified 12/21/16 18:18 naproxen AdvReac SWELLING Verified 12/21/16 18:18 cashews Allergy SWELLING Uncoded 12/21/16 18:18 cats Allergy RASH Uncoded 12/21/16 18:18 - Medications Medications: Current Medications Piperacillin Sod/Tazobactam Sod (Zosyn 3.375 In Ns 100ml) 100 mls @ 200 mls/hr IVPB Q6 [facility] PRN Reason: Protocol Stop: 03/17/17 00:01 Physical Exam - Constitutional Appears: Non-toxic, No Acute Distress - Head Exam Head Exam: NORMAL INSPECTION - Neck Exam Neck exam: Negative for: Meningismus - Respiratory Exam Respiratory Exam: Decreased Breath Sounds - Cardiovascular Exam Cardiovascular Exam: +S1, +S2 - GI/Abdominal Exam GI & Abdominal Exam: Soft. absent: Tenderness Results - Vital Signs Recent Vital Signs: Last Vital Signs Temp 98.6 F 03/09/17 15:30 Pulse 83 03/09/17 15:30 Resp 18 03/09/17 15:30 BP 122/68 03/09/17 15:30 Pulse Ox 99 03/09/17 15:30 - Labs Result Diagrams: 03/09/17 16:20 03/09/17 16:20 Labs: Laboratory Results - last 24 hr 03/09/17 19:54 pO2 37 VBG pH 7.29 L VBG pCO2 40.0 VBG HCO3 19.2 L VBG Total CO2 20.4 L VBG O2 Sat (Calc) 70.0 H VBG Base Excess -6.9 L VBG Potassium 3.4 L Sodium 139.0 Chloride 115.0 H Glucose 131 H Lactate 2.4 H FiO2 21.0 Venous Blood Potassium 3.4 L Assessment & Plan - Assessment and Plan (Free Text) Plan: Assessment consider urinary tract infection in a patient with nephrolithiasis history of right sided pyelonephritis associated with nephrolithiasis with E. faecalis Crohn's disease DM history of pyelonephritis bilateral nephrolithiasis S/P cholecystectomy S/P tubal ligation Plan based on previous cultures, we have started the patient on Zosyn pending blood cx, urine cx; would follow up Urology evaluation Will follow clinically
--- NOTE | 2017-03-10 10:27 | CARD ---
APPROVED REPORT EKG Measurement Heart [id number] <Conclusion> Normal sinus rhythm Normal ECG Improved repolarization c/w ECG 12/21/16
[2017-03-10] MEDS: Potassium Chloride 20 mEq ER Tab PO SCH ×3 (10:36→17:15)
[2017-03-10] MEDS: Mesalamine ER Cap 500 MG PO SCH ×2 (10:37→17:15)
[2017-03-10] MEDS: Potassium & Sodium Phosphate PO SCH ×3 (10:37→17:15)
[2017-03-10 11:42] VITALS: BP 106/84; PULSE 70; RESP 20; TEMP 98.4
--- NOTE | 2017-03-10 11:54 | US ---
PROCEDURE: Bilateral carotid artery duplex ultrasound HISTORY: Carotid stenosis PHYSICIAN(S): Carter Valera MD. TECHNIQUE: Duplex sonography and color-flow Doppler were used to evaluate the carotid bifurcations and limited segments of the vertebral arteries bilaterally. FINDINGS: There is mild smooth heterogeneous plaque noted at the carotid bifurcations bilaterally. The peak systolic velocity in the proximal right internal carotid artery is 77 cm/sec. This corresponds to a 20 to 39% proximal right ICA stenosis. Normal systolic velocities are noted in the proximal right external carotid artery. There is antegrade flow in the right vertebral artery. The peak systolic velocity in the proximal left internal carotid artery is 93 cm/sec. This corresponds to a 20 to 39% proximal left ICA stenosis. Normal systolic velocities are noted in the proximal left external carotid artery. There is antegrade flow in the left vertebral artery. IMPRESSION: 1. Bilateral 20-39% proximal ICA stenoses. 2. Antegrade flow in both vertebral arteries.
[2017-03-10] MEDS ORDERED: Sodium Chloride 0.9% 1,000 ML IV SCH (12:30)
--- NOTE | 2017-03-10 19:39 | CP.PCM.DIS ---
Addendum entered and electronically signed by Ramon Lawson DO 03/13/17 06:48: Patient was seen and examined and case was discussed at length with Dr. Diehl. Discussed condition at length with patient, orthostatic hypotension secondary to diuretic use, will discontinue diuretic and see the patient in the office next week. Patient verbalized understanding and agreement with plan. Ramon Lawson D.O. PGY-2 Original Note: <NASH DIEHL - Last Filed: 03/10/17 19:49> Provider - Provider Date of Admission: 03/09/17 17:53 Attending physician: Oleg Browne MD Primary care physician: Oleg Browne MD Consults: Neuro, ID Time Spent in preparation of Discharge (in minutes): 45 Diagnosis - Discharge Diagnosis (1) Hypokalemia Status: Chronic Priority: Medium (2) Near syncope Status: Acute Priority: High (3) UTI (urinary tract infection) Status: Chronic Priority: Medium (4) Renal calculi Status: Chronic Priority: Medium Hospital Course - Lab Results Lab Results: Most Recent Lab Values WBC 3.5 10^3/ul (4.5-11.0) L D 03/09/17 16:20 RBC 3.29 10^6/uL (3.5-6.1) L 03/09/17 16:20 Hgb 10.1 gm/dL (12.0-16.0) L 03/09/17 16:20 Hct 30.1 % (36.0-48.0) L 03/09/17 16:20 MCV 91.5 fL (80.0-105.0) 03/09/17 16:20 MCH 30.7 pg (25.0-35.0) 03/09/17 16:20 MCHC 33.6 g/dl (31.0-37.0) 03/09/17 16:20 RDW 14.7 % (11.5-14.5) H 03/09/17 16:20 Plt Count 78 10^3/uL (120.0-450.0) L 03/09/17 16:20 MPV 10.0 fl (7.0-11.0) 03/09/17 16:20 Gran % 70.9 % (50.0-68.0) H 03/09/17 16:20 Lymph % (Auto) 14.0 % (22.0-35.0) L 03/09/17 16:20 [place] % (Auto) 11.1 % (1.0-6.0) H 03/09/17 16:20 Eos % (Auto) 3.4 % (1.5-5.0) 03/09/17 16:20 Baso % (Auto) 0.6 % (0.0-3.0) 03/09/17 16:20 Gran # 2.49 (1.4-6.5) 03/09/17 16:20 Lymph # 0.5 (1.2-3.4) L 03/09/17 16:20 [place] # 0.4 (0.1-0.6) 03/09/17 16:20 Eos # 0.1 (0.0-0.7) 03/09/17 16:20 Baso # 0.02 K/mm3 (0.0-2.0) 03/09/17 16:20 PT 15.0 Seconds (9.9-11.8) H 03/09/17 16:20 INR 1.39 (0.93-1.08) H 03/09/17 16:20 APTT 30.3 Seconds (23.7-30.8) 03/09/17 16:20 pO2 37 mm/Hg (30-55) 03/09/17 19:54 VBG pH 7.29 (7.32-7.43) L 03/09/17 19:54 VBG pCO2 40.0 (40-60) 03/09/17 19:54 VBG HCO3 19.2 mmol/l (21-28) L 03/09/17 19:54 VBG Total CO2 20.4 mmol.L (22-28) L 03/09/17 19:54 VBG O2 Sat (Calc) 70.0 % (40-65) H 03/09/17 19:54 VBG Base Excess -6.9 mmol/L (0.0-2.0) L 03/09/17 19:54 VBG Potassium 3.4 mmol/L (3.6-5.2) L 03/09/17 19:54 Sodium 139.0 mmol/L (132-148) 03/09/17 19:54 Chloride 115.0 mmol/L (98-107) H 03/09/17 19:54 Glucose 131 mg/dl (65-105) H 03/09/17 19:54 Lactate 2.4 mmol/L (0.7-2.1) H 03/09/17 19:54 FiO2 21.0 % 03/09/17 19:54 Sodium 137 mmol/L (132-148) 03/09/17 16:20 Potassium 3.3 mmol/L (3.6-5.0) L 03/09/17 16:20 Chloride 109 mmol/L (98-107) H 03/09/17 16:20 Carbon Dioxide 19 mmol/L (21-33) L 03/09/17 16:20 Anion Gap 12 (10-20) 03/09/17 16:20 BUN 13 mg/dL (7-21) 03/09/17 16:20 Creatinine 0.8 mg/dL (0.5-1.4) 03/09/17 16:20 Est GFR ( Amer) > 60 03/09/17 16:20 Est GFR (Non-Af Amer) > 60 03/09/17 16:20 POC Glucose (mg/dL) 90 mg/dL (65-110) 03/10/17 15:59 Random Glucose 193 mg/dL (70-110) H 03/09/17 16:20 Calcium 8.3 mg/dL (8.4-10.5) L 03/09/17 16:20 Phosphorus 2.2 mg/dL (2.5-4.5) L 03/09/17 16:30 Magnesium 1.8 mg/dL (1.7-2.2) 03/09/17 16:30 Total Bilirubin 0.8 mg/dL (0.2-1.3) 03/09/17 16:20 AST 29 U/L (15-39) 03/09/17 16:20 ALT 34 U/L (7-56) 03/09/17 16:20 Alkaline Phosphatase 102 U/L (38-133) 03/09/17 16:20 Lactate Dehydrogenase 387 U/L (333-699) 03/09/17 16:20 Total Creatine Kinase 194 U/L (35-230) 03/09/17 16:20 Troponin I < 0.01 ng/mL 03/09/17 16:20 NT-Pro-B Natriuret Pep 210 pg/mL (0-450) 03/09/17 16:20 Total Protein 6.6 g/dL (5.8-8.3) 03/09/17 16:20 Albumin 3.0 g/dL (3.0-4.8) 03/09/17 16:20 Globulin 3.6 gm/dL 03/09/17 16:20 Albumin/Globulin Ratio 0.8 (1.1-1.8) L 03/09/17 16:20 Venous Blood Potassium 3.4 mmol/L (3.6-5.2) L 03/09/17 19:54 Urine Color Yellow (YELLOW) 03/09/17 16:38 Urine Appearance Cloudy (CLEAR) 03/09/17 16:38 Urine pH 6.0 (4.7-8.0) 03/09/17 16:38 Ur Specific [place] 1.015 (1.005-1.035) 03/09/17 16:38 Urine Protein 30 mg/dL (<30 mg/dL) H 03/09/17 16:38 Urine Glucose (UA) 100 mg/dL (NEGATIVE) H 03/09/17 16:38 Urine Ketones Negative mg/dL (NEGATIVE) 03/09/17 16:38 Urine Blood Large (NEGATIVE) H 03/09/17 16:38 Urine Nitrate Positive (NEGATIVE) H 03/09/17 16:38 Urine Bilirubin Negative (NEGATIVE) 03/09/17 16:38 Urine Urobilinogen 0.2 E.U./dL (<1 E.U./dL) 03/09/17 16:38 Ur Leukocyte Esterase Large Fifi/uL (NEGATIVE) H 03/09/17 16:38 Urine RBC 1 - 3 /hpf (0-2) 03/09/17 16:38 Urine WBC Tntc /hpf (0-6) 03/09/17 16:38 Ur Epithelial Cells 4 - 5 /hpf (0-5) 03/09/17 16:38 Urine Bacteria Many (NEG) 03/09/17 16:38 - Hospital Course Hospital Course: 71 yo F with PMH of Crohn's disease, HTN, recurrent UTIs, DM, pyelonephritis, bilateral Kidney stones, and Upsjhf-Gdcvlulyx-Rylolqy, who initially presented yesterday night [place] [facility] [place] of recurrent near-syncope and falls. EKG and CXR were negative, but UA appeared to show a significant UTI, and patient was admitted with the tentative diagnoses of Ataxia and urosepsis. Her history is significant for chronic nephrolithiasis and frequent UTI's, and after admission, patient admitted to frequent urination. ECHO remains unread, and CT was significant for mild generalized atrophy and scattered nonspecific white matter changes, which is unchanged since last head CT in December. In the ED , code sepsis was called, though patient was afebrile with no leukocytosis throughout the admission. ID, neurology, and cardiology were consulted and urine and blood cultures were ordered. Patient was started on IV fluids and antibiotics. She was on HCTZ at home, which was held in the hospital. Today patient reports no light-headedness, dizziness, vertigo, LOC, weakness, numbness, fever, chills, N/V/D/C, abdominal pain, CP, SOB, GRAVES. She has been able to walk around without difficulty. B/L carotid US was significant for 20-39 % stenosis. On exam, she appears grossly neurologically intact. Today she also admitted to 6 lbs weight loss in the past week, likely due to urinary fluid loss. Patient was stable and asymptomatic after rehydration and electrolyte replenishment. Blood cultures were negative after 24 hours. She was cleared by neurology and cardiology for discharge. Patient instructed to discontinue HCTZ. All questions were answered to patient's satisfaction and discharged to home. Patient was discussed and reviewed with senior resident Dr. Lawson PGY2 and attending Dr. Haley Discharge Exam - Head Exam Head Exam: ATRAUMATIC, NORMAL INSPECTION, NORMOCEPHALIC - Eye Exam Eye Exam: EOMI, Normal appearance, PERRL - ENT Exam ENT Exam: Mucous Membranes Moist - Neck Exam Neck exam: Full Rom, Normal Inspection - Respiratory Exam Respiratory Exam: Clear to PA & Lateral. absent: Rales, Rhonchi, Wheezes - Cardiovascular Exam Cardiovascular Exam: RRR, +S1, +S2. absent: JVD, Rubs - GI/Abdominal Exam GI & Abdominal Exam: Normal Bowel Sounds, Soft. absent: Tenderness - Back Exam Back exam: absent: CVA tenderness (L), CVA tenderness (R) - Neurological Exam Neurological exam: Alert, CN II-XII Intact, Normal Gait, Oriented x3, Reflexes Normal Additional comments: Negative joon hallpike, questionably positive romberg - Psychiatric Exam Psychiatric exam: Normal Affect, Normal Mood - Skin Skin Exam: Dry, Intact, Normal Color Discharge Plan - Follow Up Plan Condition: STABLE Disposition: HOME/ ROUTINE Patient education suggested?: Yes Instructions: Hypokalemia (DC), Hypokalemia (GEN) Additional Instructions: 1. Stop taking hydrochlorothiazide 2. Follow up with Dr. Browne in one week 3. Keep hydrated, preferably with fluids that contain electrolytes, like gatorade or vitamin water 4. If any new or worsening symptoms or concerns occur, contact PMD immediately or return to ER Referrals: Oleg Browne MD [Primary Care Provider] - <Harjit Haley - Last Filed: 03/27/17 16:56> Provider - Provider Date of Admission: 03/09/17 17:53 Attending physician: Oleg Browne MD Primary care physician: Oleg Browne MD Hospital Course - Lab Results Lab Results: Most Recent Lab Values WBC 3.5 10^3/ul (4.5-11.0) L D 03/09/17 16:20 RBC 3.29 10^6/uL (3.5-6.1) L 03/09/17 16:20 Hgb 10.1 gm/dL (12.0-16.0) L 03/09/17 16:20 Hct 30.1 % (36.0-48.0) L 03/09/17 16:20 MCV 91.5 fL (80.0-105.0) 03/09/17 16:20 MCH 30.7 pg (25.0-35.0) 03/09/17 16:20 MCHC 33.6 g/dl (31.0-37.0) 03/09/17 16:20 RDW 14.7 % (11.5-14.5) H 03/09/17 16:20 Plt Count 78 10^3/uL (120.0-450.0) L 03/09/17 16:20 MPV 10.0 fl (7.0-11.0) 03/09/17 16:20 Gran % 70.9 % (50.0-68.0) H 03/09/17 16:20 Lymph % (Auto) 14.0 % (22.0-35.0) L 03/09/17 16:20 [place] % (Auto) 11.1 % (1.0-6.0) H 03/09/17 16:20 Eos % (Auto) 3.4 % (1.5-5.0) 03/09/17 16:20 Baso % (Auto) 0.6 % (0.0-3.0) 03/09/17 16:20 Gran # 2.49 (1.4-6.5) 03/09/17 16:20 Lymph # 0.5 (1.2-3.4) L 03/09/17 16:20 [place] # 0.4 (0.1-0.6) 03/09/17 16:20 Eos # 0.1 (0.0-0.7) 03/09/17 16:20 Baso # 0.02 K/mm3 (0.0-2.0) 03/09/17 16:20 PT 15.0 Seconds (9.9-11.8) H 03/09/17 16:20 INR 1.39 (0.93-1.08) H 03/09/17 16:20 APTT 30.3 Seconds (23.7-30.8) 03/09/17 16:20 pO2 37 mm/Hg (30-55) 03/09/17 19:54 VBG pH 7.29 (7.32-7.43) L 03/09/17 19:54 VBG pCO2 40.0 (40-60) 03/09/17 19:54 VBG HCO3 19.2 mmol/l (21-28) L 03/09/17 19:54 VBG Total CO2 20.4 mmol.L (22-28) L 03/09/17 19:54 VBG O2 Sat (Calc) 70.0 % (40-65) H 03/09/17 19:54 VBG Base Excess -6.9 mmol/L (0.0-2.0) L 03/09/17 19:54 VBG Potassium 3.4 mmol/L (3.6-5.2) L 03/09/17 19:54 Sodium 139.0 mmol/L (132-148) 03/09/17 19:54 Chloride 115.0 mmol/L (98-107) H 03/09/17 19:54 Glucose 131 mg/dl (65-105) H 03/09/17 19:54 Lactate 2.4 mmol/L (0.7-2.1) H 03/09/17 19:54 FiO2 21.0 % 03/09/17 19:54 Sodium 137 mmol/L (132-148) 03/09/17 16:20 Potassium 3.3 mmol/L (3.6-5.0) L 03/09/17 16:20 Chloride 109 mmol/L (98-107) H 03/09/17 16:20 Carbon Dioxide 19 mmol/L (21-33) L 03/09/17 16:20 Anion Gap 12 (10-20) 03/09/17 16:20 BUN 13 mg/dL (7-21) 03/09/17 16:20 Creatinine 0.8 mg/dL (0.5-1.4) 03/09/17 16:20 Est GFR ( Amer) > 60 03/09/17 16:20 Est GFR (Non-Af Amer) > 60 03/09/17 16:20 POC Glucose (mg/dL) 90 mg/dL (65-110) 03/10/17 15:59 Random Glucose 193 mg/dL (70-110) H 03/09/17 16:20 Calcium 8.3 mg/dL (8.4-10.5) L 03/09/17 16:20 Phosphorus 2.2 mg/dL (2.5-4.5) L 03/09/17 16:30 Magnesium 1.8 mg/dL (1.7-2.2) 03/09/17 16:30 Total Bilirubin 0.8 mg/dL (0.2-1.3) 03/09/17 16:20 AST 29 U/L (15-39) 03/09/17 16:20 ALT 34 U/L (7-56) 03/09/17 16:20 Alkaline Phosphatase 102 U/L (38-133) 03/09/17 16:20 Lactate Dehydrogenase 387 U/L (333-699) 03/09/17 16:20 Total Creatine Kinase 194 U/L (35-230) 03/09/17 16:20 Troponin I < 0.01 ng/mL 03/09/17 16:20 NT-Pro-B Natriuret Pep 210 pg/mL (0-450) 03/09/17 16:20 Total Protein 6.6 g/dL (5.8-8.3) 03/09/17 16:20 Albumin 3.0 g/dL (3.0-4.8) 03/09/17 16:20 Globulin 3.6 gm/dL 03/09/17 16:20 Albumin/Globulin Ratio 0.8 (1.1-1.8) L 03/09/17 16:20 Venous Blood Potassium 3.4 mmol/L (3.6-5.2) L 03/09/17 19:54 Urine Color Yellow (YELLOW) 03/09/17 16:38 Urine Appearance Cloudy (CLEAR) 03/09/17 16:38 Urine pH 6.0 (4.7-8.0) 03/09/17 16:38 Ur Specific [place] 1.015 (1.005-1.035) 03/09/17 16:38 Urine Protein 30 mg/dL (<30 mg/dL) H 03/09/17 16:38 Urine Glucose (UA) 100 mg/dL (NEGATIVE) H 03/09/17 16:38 Urine Ketones Negative mg/dL (NEGATIVE) 03/09/17 16:38 Urine Blood Large (NEGATIVE) H 03/09/17 16:38 Urine Nitrate Positive (NEGATIVE) H 03/09/17 16:38 Urine Bilirubin Negative (NEGATIVE) 03/09/17 16:38 Urine Urobilinogen 0.2 E.U./dL (<1 E.U./dL) 03/09/17 16:38 Ur Leukocyte Esterase Large Fifi/uL (NEGATIVE) H 03/09/17 16:38 Urine RBC 1 - 3 /hpf (0-2) 03/09/17 16:38 Urine WBC Tntc /hpf (0-6) 03/09/17 16:38 Ur Epithelial Cells 4 - 5 /hpf (0-5) 03/09/17 16:38 Urine Bacteria Many (NEG) 03/09/17 16:38 Attending/Attestation - Attestation I have personally seen and examined this patient.: Yes I have fully participated in the care of the patient.: Yes I have reviewed all pertinent clinical information, including history, physical exam and plan: Yes Notes (Text): 03/27/17 16:56 Medical record note made by the resident after discussion with my direction and input after the patient was personally seen and examined by me. I have reviewed the chart and agree that the record accurately reflects by personal performance of the history, physical exam, data review, and medical decision-making, in the course for the patient. I have also personally directed the plan of care.
--- NOTE | 2017-03-21 13:50 | CP.PCM.CON ---
History of Present Illness - History of Present Illness History of Present Illness: The patient is a 71 year-old woman who presents with dizziness. There is a question of near syncope, but no LOC. The patient is complaining of decrease in weight over the past several weeks. Her appetite is decreasing. No previous cardiac history is noted. She denies chest pain, shortness of breath. Review of Systems - Review of Systems Review of Systems: dominated by weight loss. Past Patient History - Infectious Disease Hx of Infectious Diseases: None - Tetanus Immunizations Tetanus Immunization: Unknown - Past Social History Smoking Status: Never Smoked - CARDIAC Hx Hypertension: Yes - PULMONARY Hx Respiratory Disorders: Yes Hx Asthma: Yes - NEUROLOGICAL Hx Neurological Disorder: Yes - HEENT Hx HEENT Problems: No Hx Cataracts: Yes - RENAL Hx Chronic Kidney Disease: Yes Hx Kidney Stones: Yes Other/Comment: RENAL CALCULI - ENDOCRINE/METABOLIC Hx Diabetes Mellitus Type 2: Yes (NIDD) - HEMATOLOGICAL/ONCOLOGICAL Hx Blood Disorders: Yes - INTEGUMENTARY Hx Dermatological Problems: No - MUSCULOSKELETAL/RHEUMATOLOGICAL Hx Musculoskeletal Disorders: Yes (RIB INJURY) Hx Back Pain: Yes Hx Falls: Yes (FELL 12-21-16 SLIPPED OFF BED.ATTEMPTED TO GET UP.) Hx Fractures: Yes (ELBOW) Hx Unsteady Gait: Yes (CANE) Other/Comment: CERVICAL RADICULOPATHY - GASTROINTESTINAL Hx Gastrointestinal Disorders: Yes Hx Crohn's Disease: Yes Other/Comment: CHOLELITHAISIS. GASTRIC BYPASS - GENITOURINARY/GYNECOLOGICAL Hx Genitourinary Disorders: Yes (PYELONEPHRITIS,PSEUDOMONAS UTI,RENAL CA) Other/Comment: kidney stone - PSYCHIATRIC Hx Psychophysiologic Disorder: Yes Hx Depression: Yes Hx Emotional Abuse: No Hx Physical Abuse: No Hx Substance Use: No - SURGICAL HISTORY Hx Cholecystectomy: Yes Hx Gastric Bypass Surgery: Yes Other/Comment: kidney surgery - ANESTHESIA Hx Anesthesia: Yes Hx Anesthesia Reactions: No Hx Malignant Hyperthermia: No Meds Allergies/Adverse Reactions: Allergies Allergy/AdvReac Type Severity Reaction Status Date / Time cashew nut Allergy SWELLING Verified 12/21/16 18:18 latex Allergy ANAPHYLAXIS Verified 12/21/16 18:18 naproxen AdvReac SWELLING Verified 12/21/16 18:18 cashews Allergy SWELLING Uncoded 12/21/16 18:18 cats Allergy RASH Uncoded 12/21/16 18:18 Physical Exam - Constitutional Additional comments: Vital Signs: BP: 98/56 with no orthostatic changes. Heart rate is in the 70s - Neck Exam Additional comments: Negative JVD - Respiratory Exam Respiratory Exam: absent: Rales - Cardiovascular Exam Cardiovascular Exam: +S1, +S2 - Extremities Exam Additional comments: Without Edema Results - Vital Signs Recent Vital Signs: Last Vital Signs Temp 98.4 F 03/10/17 11:41 Pulse 70 03/10/17 11:41 Resp 20 03/10/17 11:41 BP 106/84 03/10/17 11:41 Pulse Ox 97 03/10/17 05:47 - Labs Result Diagrams: 03/09/17 16:20 03/09/17 16:20 Labs: 1. Hemoglobin is 10.1 2. BUN and Creatinine unremarkable 3. Troponins are negative - EKG Data EKG Interpreted by: Myself - EKG Data EKG comments: Echocardiogram reveals good LV function; no aortic valve stenosis; no pulmonary hypertension Assessment & Plan - Assessment and Plan (Free Text) Assessment: 1. Transient hypotension likely due to her decreased appetite as well as medications 2. Remote history of hypertension 3. Anemia 4. Dizziness Plan: Given these findings, patient's cardiac status is stable. Have discussed with the patient and family about the need for hydration. Will hold off on any antihypertensive medications at this time. - Date & Time Date: 03/10/17
--- NOTE | 2017-03-27 12:21 | CARD ---
APPROVED REPORT EXAM: Two-dimensional and M-mode echocardiogram with Doppler and color Doppler. INDICATION NEAR SYNCOPE 2D DIMENSIONS Left Atrium (2D)4.0 (1.6-4.0cm)IVSd1.0 (0.7-1.1cm) LVDd5.0 (3.9-5.9cm)PWd0.9 (0.7-1.1cm) LVDs3.7 (2.5-4.0cm)FS (%) 26.7 % LVEF (%)51.9 (>50%) M-Mode DIMENSIONS Aortic Root3.40 (2.2-3.7cm)Aortic Cusp Exc.2.20 (1.5-2.0cm) Aortic Valve AoV Peak Qqobzhfb632.0cm/[place] Peak GR.7mmHg Mitral Valve MV E Zhbitypk63.7cm/sMV A Glnjxufs16.1cm/sE/A ratio0.7 TDI E/Lateral E'0.0E/Medial E'0.0 Tricuspid Valve TR Peak Mfcmrhdp640qi/sRAP [id number] Peak Gr.20mmHg [id number] LEFT VENTRICLE The left ventricular function is normal. The left ventricular ejection fraction is within the normal range. RIGHT VENTRICLE The right ventricle is normal size. ATRIA The left atrium is mildly dilated. The right atrium size is normal. AORTIC VALVE The aortic valve is thickened but opens well. MITRAL VALVE The mitral valve is thickened but opens well. TRICUSPID VALVE The tricuspid valve leaflets are thickened , but open well. There is trace tricuspid regurgitation. There is no pulmonary hypertension. PULMONIC VALVE The pulmonary valve is normal in structure. PERICARDIAL EFFUSION There is no pericardial effusion. <Conclusion> Good LV function Mildly dilated LA Mild TR No pulm hypertension
== END 2017-03-10 18:08 | disposition home or self-care (01) ==
LOC: ED 15:07 → INTOOBSV 17:53 → ERH 17:53 → 2RNO 21:26
PROVIDERS: ADMIT Internal Medicine; ATTEND Internal Medicine
DX: N39.0 Urinary tract infection, site not specified (principal); D61.818 Other pancytopenia; E87.6 Hypokalemia; K50.90 Crohn's disease, unspecified, without complications; E83.39 Other disorders of phosphorus metabolism; F32.9 Major depressive disorder, single episode, unspecified; E11.9 Type 2 diabetes mellitus without complications; I10 Essential (primary) hypertension; R32 Unspecified urinary incontinence; R26.81 Unsteadiness on feet; R29.6 Repeated falls; Z87.440 Personal history of urinary (tract) infections; Z87.442 Personal history of urinary calculi; Z98.51 Tubal ligation status; Z90.49 Acquired absence of other specified parts of digestive tract; Z98.84 Bariatric surgery status
CPT/HCPCS: 70450; 71010; 80053; 81001; 82550; 82803; 82948; 83615; 83735; 83880; 84100; 84484; 85025; 85610; 85730; 87040; 87086; 87181; 93005; 93306; 93880; 99285; G0378; J0696; J2543; J7040

== ENCOUNTER 2017-04-07 22:37 | Inpatient (IN) | payer MEDICARE, OTHER ==
[2017-04-07 23:07] VITALS: BMI 29.3
--- NOTE | 2017-04-07 23:31 | ED PDOC ---
Arrival/HPI - General Chief Complaint: Fever Time Seen by Provider: 04/07/17 23:15 Historian: Patient - History of Present Illness Narrative History of Present Illness (Text): 04/07/17 23:29 A 71 year old female presents to the emergency department complaining of fever and generalized weakness since yesterday. Patient reports a slight cough, but denies any abdominal pain, dysuria, vomiting, diarrhea or any other complaints at this time. Denies any smoking, alcohol or drug use. PMD: Dr. Browne Symptom Onset: Sudden Symptom Course: Unchanged Activities at Onset: Rest Context: Home Past Medical History - Provider Review Nursing Documentation Reviewed: Yes - Infectious Disease Hx of Infectious Diseases: None - Tetanus Immunization Tetanus Immunization: Unknown - Past Medical History Past Medical History: No Previous - Cardiac Hx Hypertension: Yes - Pulmonary Hx Respiratory Disorders: Yes Hx Asthma: Yes - Neurological Hx Neurological Disorder: Yes - HEENT Hx HEENT Disorder: No Hx Cataracts: Yes - Renal Hx Renal Disorder: Yes Hx Kidney Stones: Yes Other/Comment: RENAL CALCULI - Endocrine/Metabolic Hx Diabetes Mellitus Type 2: Yes (NIDD) - Hematological/Oncological Hx Blood Disorders: Yes - Integumentary Hx Dermatological Disorder: No - Musculoskeletal/Rheumatological Hx Musculoskeletal Disorders: Yes (RIB INJURY) Hx Back Pain: Yes Hx Falls: Yes (FELL 12-21-16 SLIPPED OFF BED.ATTEMPTED TO GET UP.) Hx Fractures: Yes (ELBOW) Hx Unsteady Gait: Yes (CANE) Other/Comment: CERVICAL RADICULOPATHY - Gastrointestinal Hx Gastrointestinal Disorders: Yes Hx Crohn's Disease: Yes Other/Comment: CHOLELITHAISIS. GASTRIC BYPASS - Genitourinary/Gynecological Hx Genitourinary Disorders: Yes (PYELONEPHRITIS,PSEUDOMONAS UTI,RENAL CA) Other/Comment: kidney stone - Psychiatric Hx Psychophysiologic Disorder: Yes Hx Depression: Yes Hx Emotional Abuse: No Hx Physical Abuse: No Hx Substance Use: No - Surgical History Hx Cholecystectomy: Yes Hx Gastric Bypass Surgery: Yes Other/Comment: kidney surgery - Anesthesia Hx Anesthesia: Yes Hx Anesthesia Reactions: No Hx Malignant Hyperthermia: No - Suicidal Assessment Feels Threatened In Home Enviroment: No Family/Social History - Physician Review Nursing Documentation Reviewed: Yes Family/Social History: No Known Family HX Smoking Status: Never Smoked Hx Alcohol Use: No Hx Substance Use: No Hx Substance Use Treatment: No Allergies/Home Meds Allergies/Adverse Reactions: Allergies cashew nut Allergy (Verified 04/07/17 23:17) SWELLING latex Allergy (Verified 04/07/17 23:17) ANAPHYLAXIS naproxen Adverse Reaction (Verified 04/07/17 23:17) SWELLING AVOIDS cashews Allergy (Uncoded 04/07/17 23:17) SWELLING cats Allergy (Uncoded 04/07/17 23:17) RASH Home Medications: Home Meds Medication Instructions Recorded Confirmed Sertraline [Zoloft] 100 mg PO DAILY 08/20/14 04/07/17 ALPRAZolam [Xanax] 0.25 mg PO PRN PRN 10/25/15 04/07/17 Mesalamine [Pentasa] 500 mg PO BID 11/19/15 04/07/17 Glyburide/Metformin HCl 1 tab PO QID 03/29/16 04/07/17 [Glyburide-Metformin 5-500 mg] Gabapentin [Neurontin] 300 mg PO TID 03/31/16 04/07/17 Potassium Chloride [K-Dur 20 mEq 20 meq PO QID 04/27/16 04/07/17 ER Tab] Primidone 50 mg PO HS 04/27/16 04/07/17 Ondansetron HCl [Zofran] 4 mg PO PRN PRN 09/08/16 04/07/17 Review of Systems - Physician Review All systems were reviewed & negative as marked: Yes - Review of Systems Constitutional: Fevers, Other (generalized weakness) Respiratory: Cough Gastrointestinal: absent: Abdominal Pain, Diarrhea, Vomiting Genitourinary Female: absent: Dysuria Physical Exam Vital Signs Reviewed: Yes Vital Signs Temp Pulse Resp BP Pulse Ox 04/08/17 02:06 98.8 F 81 19 105/59 L 96 04/07/17 23:04 101.2 F H 101 H 24 132/55 L 97 Temperature: Febrile Blood Pressure: Hypotensive Pulse: Tachycardic Respiratory Rate: Normal Appearance: Positive for: Well-Appearing, Non-Toxic, Comfortable, Other (sleepy) Pain Distress: None Mental Status: Positive for: Alert and Oriented X 3 - Systems Exam Head: Present: Atraumatic, Normocephalic Pupils: Present: PERRL Extroacular Muscles: Present: EOMI Conjunctiva: Present: Normal Mouth: Present: Dry Neck: Present: Normal Range of Motion Respiratory/Chest: Present: Clear to Auscultation, Good Air Exchange. No: Respiratory Distress, Accessory Muscle Use Cardiovascular: Present: Regular Rate and Rhythm, Normal S1, S2. No: Murmurs Abdomen: Present: Normal Bowel Sounds. No: Tenderness, Distention, Peritoneal Signs Back: Present: Normal Inspection Upper Extremity: Present: Normal Inspection. No: Cyanosis, Edema Lower Extremity: Present: Normal Inspection. No: Edema Neurological: Present: GCS=15, CN II-XII Intact, Speech Normal Skin: Present: Warm, Dry, Normal Color. No: Rashes Psychiatric: Present: Alert, Oriented x 3, Normal Insight, Normal Concentration Medical Decision Making ED Course and Treatment: 04/07/17 23:36 EKG: Ordered, reviewed, and independently interpreted the EKG. Rate : 105 BPM Rhythm : Sinus tachycardic Interpretation : left axis deviation, no acute ischemia 04/08/17 00:10 chest xray: No acute infiltrate, interpreted by me. - Lab Interpretations Microbiology Results: Microbiology Results 04/08/17 00:30 Blood Blood Culture - Preliminary NO GROWTH AFTER 4 DAYS 04/08/17 00:30 Blood Blood Culture - Preliminary NO GROWTH AFTER 4 DAYS 04/08/17 00:30 Urine Urine Culture - Final Lab Results: 04/07/17 23:30 04/07/17 23:30 Lab Results 04/08/17 00:30: Urine Color Yellow, Urine Appearance Turbid, Urine pH 6.0, Ur Specific Valdez 1.010, Urine Protein Negative, Urine Glucose (UA) Negative, Urine Ketones Negative, Urine Blood Large H, Urine Nitrate Positive H, Urine Bilirubin Negative, Urine Urobilinogen 0.2, Ur Leukocyte Esterase Large H, Urine RBC 10 - 15, Urine WBC Tntc, Ur Epithelial Cells 3 - 4, Urine Bacteria Mod 04/07/17 23:30: Sodium 141, Chloride 112 H, Potassium 3.6, Carbon Dioxide 17 L, Anion Gap 16, BUN 15, Creatinine 1.2, Est GFR ( Amer) 54, Est GFR (Non- Af Amer) 44, Random Glucose 161 H, Calcium 9.0, Phosphorus 3.5, Magnesium 1.6 L , Total Bilirubin 2.2 H, AST 28, ALT 41, Alkaline Phosphatase 128, Total Protein 7.0, Albumin 3.3, Globulin 3.8, Albumin/Globulin Ratio 0.9 L 04/07/17 23:30: pO2 45, VBG pH 7.33, VBG pCO2 30.0 L, VBG HCO3 15.8 L, VBG Total CO2 16.7 L, VBG O2 Sat (Calc) 78.5 H, VBG Base Excess -8.8 L, VBG Potassium 3.7, Sodium 141.0, Chloride 115.0 H, Glucose 166 H, Lactate 2.8 H, FiO2 21.0, Venous Blood Potassium 3.7 04/07/17 23:30: WBC 6.3 D, RBC 3.95, Hgb 12.7, Hct 37.4, MCV 94.7, MCH 32.2, MCHC 34.0, RDW 16.0 H, Plt Count 88 L, MPV 9.9, Neutrophils % (Manual) 78 H, Band Neutrophils % 2, Lymphocytes % (Manual) 10 L, Monocytes % (Manual) 10 H, Platelet Evaluation Low I have reviewed the lab results: Yes - RAD Interpretation Radiology Orders: 04/07/17 23:16 CHEST PORTABLE [RAD] Stat - EKG Interpretation Interpreted by ED Physician: Yes Type: 12 lead EKG - Medication Orders Current Medication Orders: Acetaminophen (Tylenol 325mg Tab) 650 mg PO Q4H PRN PRN Reason: Fever >100.4 F Last Admin: 04/10/17 12:33 Dose: 650 mg Ascorbic Acid (Vitamin C 500 Mg Tab) 500 mg PO DAILY AGNES Last Admin: 04/12/17 09:44 Dose: 500 mg Gabapentin (Neurontin) 300 mg PO TID AGNES PRN Reason: Protocol Last Admin: 04/12/17 13:27 Dose: 300 mg Re-Assess: Reassess Psych Meds Document 04/12/17 14:27 BETH (Rec: 04/12/17 17:06 BETH [id number]) Reassess Psych Med Effective Meropenem 1g/NS 100mL IVPB (Meropenem 1g/Ns 100ml Ivpb) 1 gm in 100 mls @ 100 mls/hr IVPB Q12 AGNES PRN Reason: Protocol Stop: 04/16/17 10:01 Last Admin: 04/12/17 09:42 Dose: 100 mls/hr Sodium Bicarbonate 150 meq/ (Sodium Chloride) 1,150 mls @ 100 mls/hr IV .[id number] [facility] Last Admin: 04/12/17 12:19 Dose: 100 mls/hr Iron Sucrose 200 mg/ Sodium (Chloride) 110 mls @ 110 mls/hr IVPB DAILY [facility] Stop: 04/13/17 15:01 Last Admin: 04/12/17 09:43 Dose: 110 mls/hr Insulin Human Lispro (Humalog Low) 0 units SC ACHS [facility] PRN Reason: Protocol Last Admin: 04/12/17 17:05 Dose: Not Given Non-Admin Reason: Blood Sugar Parameter Lactobacillus Acidophilus (Bacid Acidophilus) 1 cap PO TID [facility] Last Admin: 04/12/17 13:24 Dose: Magnesium Oxide (Mag-Ox) 400 mg PO DAILY [facility] Last Admin: 04/12/17 09:42 Dose: 400 mg Mesalamine (Pentasa) 500 mg PO BID [facility] Last Admin: 04/12/17 09:43 Dose: 500 mg Metronidazole (Flagyl) 500 mg PO Q8 [facility] PRN Reason: Protocol Last Admin: 04/12/17 13:24 Dose: Pantoprazole Sodium (Protonix Ec Tab) 20 mg PO 0600,1600 [facility] Last Admin: 04/12/17 05:22 Dose: 20 mg Phenazopyridine HCl (Pyridium) 200 mg PO TID [facility] Last Admin: 04/12/17 13:30 Dose: 200 mg Potassium Chloride (Potassium Chloride Oral Soln) 40 meq PO Q4 [facility] Last Admin: 04/12/17 12:19 Dose: 40 meq Potassium Phos/Sodium Phos (Neutra-Phos) 1 pkt PO TID [facility] Last Admin: 04/12/17 13:27 Dose: 1 pkt Sertraline HCl (Zoloft) 100 mg PO DAILY [facility] Last Admin: 04/12/17 09:44 Dose: 100 mg Tamsulosin HCl (Flomax) 0.4 mg PO DAILY [facility] Last Admin: 04/12/17 09:42 Dose: 0.4 mg Thiamine HCl (Vitamin B1 Tab) 100 mg PO DAILY [facility] Last Admin: 04/12/17 09:44 Dose: 100 mg Discontinued Medications Acetaminophen (Tylenol 325mg Tab) 975 mg PO STAT STA Stop: 04/08/17 00:15 Last Admin: 04/08/17 00:33 Dose: 975 mg Re-Assess: MAR Pain/Vitals Document 04/08/17 02:00 (Rec: 04/08/17 03:00 [id number]) Pain Reassessment Is This A Pain ReAssessment? Yes Sleep Is patient sleeping during reassessment? No Presence of Pain Presence of Pain No Albumin Human (Albumin Human 25% (12.5 Gm/50 Ml)) 12.5 gm IV ONCE ONE Stop: 04/10/17 07:53 Last Admin: 04/10/17 11:47 Dose: 12.5 gm Albumin Human (Albumin Human 25% (12.5 Gm/50 Ml)) 12.5 gm IV ONCE ONE Stop: 04/10/17 16:28 Last Admin: 04/10/17 18:31 Dose: 12.5 gm Calcium Carbonate (Oscal) 500 mg PO ONCE ONE Stop: 04/09/17 08:24 Last Admin: 04/09/17 08:52 Dose: 500 mg Ephedrine (Ephedrine) Confirm Administered Dose 50 mg .ROUTE .STK-MED ONE Stop: 04/11/17 08:53 Fentanyl (Fentanyl) Confirm Administered Dose 100 mcg .ROUTE .STK-MED ONE Stop: 04/11/17 08:28 Furosemide (Lasix) 40 mg IVP ONCE ONE Stop: 04/08/17 11:53 Last Admin: 04/09/17 14:09 Dose: Gabapentin (Neurontin) 300 mg PO ONCE ONE PRN Reason: Protocol Stop: 04/08/17 21:01 Last Admin: 04/08/17 21:45 Dose: 300 mg Gentamicin Sulfate (Gentamicin) 190 mg 2.5 mg/kg (190 mg) IVPB ONCE ONE PRN Reason: Protocol Stop: 04/09/17 13:01 Last Admin: 04/09/17 14:09 Dose: Sodium Chloride 2,500 ml/ IV (SUPPLIES) 2,500 mls @ 4,653.84 mls/hr IV ONCE ONE PRN Reason: 60 ML/KG/HR Stop: 04/07/17 23:16 Last Admin: 04/07/17 23:41 Dose: 4,653.84 mls/hr Piperacillin Sod/Tazobactam Sod (Zosyn 3.375 In Ns 100ml) 100 mls @ 200 mls/hr IVPB STAT STA PRN Reason: Protocol Stop: 04/08/17 00:42 Last Admin: 04/08/17 00:33 Dose: 200 mls/hr Vancomycin HCl (Vancomycin 1gm) 1 gm in 250 mls @ 167 mls/hr IVPB STAT STA Stop: 04/08/17 01:44 Last Admin: 04/08/17 00:55 Dose: 167 mls/hr Piperacillin Sod/Tazobactam Sod (Zosyn 3.375 In Ns 100ml) 100 mls @ 200 mls/hr IVPB Q6 [facility] PRN Reason: Protocol Stop: 04/16/17 06:01 Last Admin: 04/09/17 05:22 Dose: 200 mls/hr Sodium Chloride (Sodium Chloride 0.9%) 1,000 mls @ 50 mls/hr IV .Q20H AGNES Sodium Chloride (Sodium Chloride 0.9%) 1,000 mls @ 999 mls/hr IV .Q1H1M STA Stop: 04/08/17 05:29 Last Admin: 04/08/17 04:35 Dose: 999 mls/hr Sodium Chloride (Sodium Chloride 0.9%) 1,000 mls @ 75 mls/hr IV .[id number] AGNES Sodium Chloride (Sodium Chloride 0.9%) 1,000 mls @ 999 mls/hr IV .Q1H1M STA Stop: 04/08/17 06:40 Last Admin: 04/08/17 05:59 Dose: 999 mls/hr Sodium Chloride (Sodium Chloride 0.9%) 1,000 mls @ 125 mls/hr IV .Q8H [facility] Last Admin: 04/09/17 15:41 Dose: Magnesium Sulfate/Dextrose (Magnesium Sulfate 1 Gm/100 Ml D5w) 1 gm in 100 mls @ 100 mls/hr IVPB ONCE ONE Stop: 04/08/17 08:12 Last Admin: 04/08/17 11:34 Dose: 100 mls/hr Sodium Chloride (Sodium Chloride 0.9%) 1,000 mls @ 999 mls/hr IV .Q1H1M STA Stop: 04/09/17 09:21 Last Admin: 04/09/17 08:25 Dose: 999 mls/hr Potassium Chloride (Potassium Chloride 10 Meq/100 Ml) 10 meq in 100 mls @ 100 mls/hr IVPB Q2H AGNES Stop: 04/09/17 11:29 Last Admin: 04/09/17 15:39 Dose: 100 mls/hr Magnesium Sulfate 2 gm/ Sodium (Chloride) 104 mls @ 102 mls/hr IVPB ONCE ONE Stop: 04/09/17 09:24 Last Admin: 04/09/17 13:32 Dose: 102 mls/hr Sodium Chloride (Sodium Chloride 0.9%) 1,000 mls @ 999 mls/hr IV .Q[facility] STA Stop: 04/09/17 12:15 Last Admin: 04/09/17 11:23 Dose: 999 mls/hr Sodium Chloride (Sodium Chloride 0.9%) 1,000 mls @ 999 mls/hr IV .Q1[facility] STA Stop: 04/09/17 13:26 Last Admin: 04/09/17 12:57 Dose: 999 mls/hr Sodium Chloride (Sodium Chloride 0.9%) 2,000 mls @ 999 mls/hr IV .Q2M STA Stop: 04/09/17 14:28 Last Admin: 04/09/17 14:12 Dose: Sodium Chloride (Sodium Chloride 0.9%) 1,000 mls @ 999 mls/hr IV .Q1[facility] STA Stop: 04/09/17 13:31 Last Admin: 04/09/17 13:50 Dose: 999 mls/hr Gentamicin Sulfate 190 mg/ (Sodium Chloride) 104.75 mls @ 100 mls/hr IVPB ONCE ONE Stop: 04/09/17 14:17 Last Admin: 04/09/17 15:52 Dose: 100 mls/hr Potassium Chloride (Potassium Chloride 20 Meq/100 Ml) 20 meq in 100 mls @ 50 mls/hr IVPB ONCE ONE Stop: 04/10/17 08:39 Last Admin: 04/10/17 07:31 Dose: 50 mls/hr Calcium Gluconate 1,000 mg/ (Sodium Chloride) 110 mls @ 110 mls/hr IVPB ONCE ONE Stop: 04/10/17 08:31 Last Admin: 04/10/17 13:01 Dose: 110 mls/hr Calcium Gluconate 1,000 mg/ (Sodium Chloride) 110 mls @ 110 mls/hr IVPB ONCE ONE Stop: 04/10/17 17:26 Last Admin: 04/10/17 17:22 Dose: 110 mls/hr Calcium Gluconate 1,000 mg/ (Dextrose) 110 mls @ 110 mls/hr IVPB ONCE ONE Stop: 04/11/17 10:12 Last Admin: 04/11/17 11:37 Dose: 110 mls/hr Calcium Chloride 1,000 mg/ (Sodium Chloride) 110 mls @ 110 mls/hr IV ONCE ONE Stop: 04/11/17 12:29 Last Admin: 04/11/17 12:46 Dose: 110 mls/hr Potassium Phosphate 15 mmole/ (Sodium Chloride) 255 mls @ 85 mls/hr IV ONCE ONE Stop: 04/11/17 14:44 Last Admin: 04/11/17 12:47 Dose: 85 mls/hr Potassium Phosphate 15 mmole/ (Sodium Chloride) 255 mls @ 85 mls/hr IV ONCE ONE Stop: 04/11/17 17:59 Last Admin: 04/11/17 15:44 Dose: 85 mls/hr Iohexol (Omnipaque 240 (50 Ml)) Confirm Administered Dose 50 ml .ROUTE .STK-MED ONE Stop: 04/09/17 12:43 Last Admin: 04/09/17 14:08 Dose: Metoclopramide HCl (Reglan) Confirm Administered Dose 10 mg .ROUTE .STK-MED ONE Stop: 04/11/17 08:54 Morphine Sulfate (Morphine) 2 mg IVP Q15M PRN PRN Reason: Pain, moderate (4-7) Ondansetron HCl (Zofran Inj) Confirm Administered Dose 4 mg .ROUTE .STK-MED ONE Stop: 04/11/17 08:30 Potassium Chloride (K-Dur 20 Meq Er Tab) 40 meq PO STAT STA Stop: 04/09/17 08:23 Last Admin: 04/09/17 08:51 Dose: 40 meq Potassium Chloride (K-Dur 20 Meq Er Tab) 20 meq PO BRK AGNES Last Admin: 04/10/17 08:09 Dose: 20 meq Potassium Chloride (Potassium Chloride Oral Soln) 40 meq PO STAT STA Stop: 04/09/17 16:41 Last Admin: 04/09/17 17:46 Dose: 40 meq Potassium Chloride (K-Dur 20 Meq Er Tab) 40 meq PO ONCE ONE Stop: 04/10/17 07:28 Last Admin: 04/10/17 07:33 Dose: 40 meq Potassium Chloride (Potassium Chloride Oral Soln) 40 meq PO ONCE ONE Stop: 04/10/17 16:28 Last Admin: 04/10/17 17:42 Dose: 40 meq Potassium Chloride (K-Dur 20 Meq Er Tab) 40 meq PO ONCE ONE Stop: 04/11/17 09:14 Last Admin: 04/11/17 11:36 Dose: 40 meq Potassium Phos/Sodium Phos (Neutra-Phos) 1 pkt PO ONCE ONE Stop: 04/09/17 08:22 Last Admin: 04/09/17 08:52 Dose: 1 pkt Potassium Phos/Sodium Phos (Neutra-Phos) 1 pkt PO ONCE ONE Stop: 04/10/17 06:46 Last Admin: 04/10/17 07:32 Dose: 1 pkt Potassium Phos/Sodium Phos (Neutra-Phos) 1 pkt PO Stat STA Stop: 04/10/17 16:32 Last Admin: 04/10/17 16:52 Dose: 1 pkt Propofol (Diprivan) Confirm Administered Dose 200 mg .ROUTE .STK-MED ONE Stop: 04/11/17 08:28 Sodium Bicarbonate (Sodium Bicarbonate (8.4%) 50 Meq Syringe) 50 meq IVP ONCE ONE Stop: 04/09/17 14:48 Last Admin: 04/09/17 15:44 Dose: 50 meq - Scribe Statement The provider has reviewed the documentation as recorded by the Jeovanny Bonilla Provider Scribe Attestation: All medical record entries made by the Isaíasibyuliana were at my direction and personally dictated by me. I have reviewed the chart and agree that the record accurately reflects my personal performance of the history, physical exam, medical decision making, and the department course for this patient. I have also personally directed, reviewed, and agree with the discharge instructions and disposition. Disposition/Present on Arrival - Present on Arrival Any Indicators Present on Arrival: No History of DVT/PE: No History of Uncontrolled Diabetes: No Urinary Catheter: No History of Decub. Ulcer: No History Surgical Site Infection Following: None - Disposition Have Diagnosis and Disposition been Completed?: Yes Diagnosis: Sepsis, Urinary tract infection Disposition: HOSPITALIZED Disposition Time: 01:07 Condition: STABLE
[2017-04-08 00:01] LABS: VENOUS BLOOD GAS BASE EXCESS -8.8 mmol/L (0.0-2.0); VENOUS BLOOD GAS PO2 45 mm/Hg (30-55); VENOUS BLOOD PH 7.33 (7.32-7.43)
[2017-04-08 00:09] LABS: HEMOGLOBIN 12.7 gm/dL (12.0-16.0); MEAN CELL VOLUME 94.7 fL (80.0-105.0); MEAN CORPUSCULAR HEMOGLOBIN 32.2 pg (25.0-35.0); MEAN PLATELET VOLUME 9.9 fl (7.0-11.0); PLATELET COUNT 88 10^3/uL (120.0-450.0); RBC 3.95 10^6/uL (3.5-6.1); WHITE BLOOD COUNT 6.3 10^3/ul (4.5-11.0)
[2017-04-08] MEDS ORDERED: Piperacillin/Tazobact 3.375 gm 100 ML IVPB STA (00:13)
[2017-04-08] MEDS ORDERED: Vancomycin 500 mg Inj IVPB STA (00:13)
[2017-04-08] MEDS ORDERED: Vancomycin 1gm in NS 250ml 1 GM/250 ML BAG IVPB STA (00:15)
[2017-04-08 00:18] LABS: ALB/GLOB RATIO 0.9 (1.1-1.8); ALBUMIN 3.3 g/dL (3.0-4.8); MAGNESIUM 1.6 mg/dL (1.7-2.2)
[2017-04-08 00:32] LABS: BAND 2 % (0-2); LYMPHOCYTE 10 % (22.0-35.0); MONOCYTE 10 % (1.0-6.0); NEUTROPHIL 78 % (50.0-70.0); PLATELET ESTIMATE LOW (NORMAL)
[2017-04-08 00:45] LABS: URINE APPEARANCE TURBID (CLEAR); URINE BILIRUBIN NEGATIVE (NEGATIVE); URINE BLOOD LARGE (NEGATIVE); URINE COLOR YELLOW (YELLOW); URINE GLUCOSE (UA) NEGATIVE (NEGATIVE); URINE LEUKOCYTE ESTERASE LARGE Leu/uL (NEGATIVE); URINE NITRATE POSITIVE (NEGATIVE); URINE PROTEIN NEGATIVE mg/dL (<30 mg/dL); URINE UROBILINOGEN 0.2 E.U./dL (<1 E.U./dL)
[2017-04-08 00:48] LABS: URINE BACTERIA MOD (NEG); URINE WBC TNTC /hpf (0-6)
--- NOTE | 2017-04-08 01:10 | CP.PCM.HP ---
History of Present Illness - History of Present Illness History of Present Illness: 71 yo female PMHx of DM type 2, nephrolithiasis, pyelonephritis, recurrent UTI' s, hypokalemia, Crohn's disease, depression presents to ED with fever and generalized weakness since the day before admission. Patient reports she had elevated temps at home and had chills and night sweats. She denied dysuria or burning on urination but reported "very hot" urine and malodor. She also reported incontinence and that she wears a diaper. She denied any acute headache , dizziness, chest pain, palpitations, SOB, cough, abd pain, nausea, vomiting, bowel complaints, swelling in her legs. Patient did complain of pain in her legs bilaterally, an unsteady gait, and a nonproductive cough. PMD: Dr. Browne Urologist: Dr. Horvath Relations Mgr: Dr. Jackman PMHx: DM type 2, nephrolithiasis, pyelonephritis, recurrent UTI's, hypokalemia, Crohn's disease, depression PSurgHx: Cholecystectomy, gastric bypass, tubal ligation Family Hx: Noncontributory Social Hx: Denies tobacco, alcohol and illicit drug use Allergy: Cashews, Latex, Naproxen, Cat dander Present on Admission - Present on Admission Any Indicators Present on Admission: No Review of Systems - Constitutional Constitutional: As Per HPI, Chills, Fatigue, Fever, Malaise, Night Sweats. absent: Headache - EENT Eyes: As Per HPI. absent: Blurred Vision Ears: As Per HPI. absent: Dizziness Nose/Mouth/Throat: As Per HPI. absent: Sore Throat - Cardiovascular Cardiovascular: As Per HPI. absent: Chest Pain, Dyspnea, Dyspnea on Exertion - Respiratory Respiratory: As Per HPI, Cough. absent: Dyspnea, Wheezing, Chest Congestion - Gastrointestinal Gastrointestinal: As Per HPI. absent: Abdominal Pain, Constipation, Diarrhea, Nausea, Vomiting - Genitourinary Genitourinary: As Per HPI, Freq UTI. absent: Dysuria Additional comments: "hot" urine and malodorous urine - Musculoskeletal Musculoskeletal: As Per HPI. absent: Numbness, Tingling - Integumentary Integumentary: As Per HPI. absent: Dry Skin - Neurological Neurological: As Per HPI. absent: Headaches, Tingling, Weakness Past Patient History - Infectious Disease Hx of Infectious Diseases: None - Tetanus Immunizations Tetanus Immunization: Unknown - Past Social History Smoking Status: Never Smoked - CARDIAC Hx Hypertension: Yes - PULMONARY Hx Respiratory Disorders: Yes Hx Asthma: Yes - NEUROLOGICAL Hx Neurological Disorder: Yes - HEENT Hx HEENT Problems: No Hx Cataracts: Yes - RENAL Hx Chronic Kidney Disease: Yes Hx Kidney Stones: Yes Other/Comment: RENAL CALCULI - ENDOCRINE/METABOLIC Hx Diabetes Mellitus Type 2: Yes (NIDD) - HEMATOLOGICAL/ONCOLOGICAL Hx Blood Disorders: Yes - INTEGUMENTARY Hx Dermatological Problems: No - MUSCULOSKELETAL/RHEUMATOLOGICAL Hx Musculoskeletal Disorders: Yes (RIB INJURY) Hx Back Pain: Yes Hx Falls: Yes (FELL 12-21-16 SLIPPED OFF BED.ATTEMPTED TO GET UP.) Hx Fractures: Yes (ELBOW) Hx Unsteady Gait: Yes (CANE) Other/Comment: CERVICAL RADICULOPATHY - GASTROINTESTINAL Hx Gastrointestinal Disorders: Yes Hx Crohn's Disease: Yes Other/Comment: CHOLELITHAISIS. GASTRIC BYPASS - GENITOURINARY/GYNECOLOGICAL Hx Genitourinary Disorders: Yes (PYELONEPHRITIS,PSEUDOMONAS UTI,RENAL CA) Other/Comment: kidney stone - PSYCHIATRIC Hx Psychophysiologic Disorder: Yes Hx Depression: Yes Hx Emotional Abuse: No Hx Physical Abuse: No Hx Substance Use: No - SURGICAL HISTORY Hx Cholecystectomy: Yes Hx Gastric Bypass Surgery: Yes Other/Comment: kidney surgery - ANESTHESIA Hx Anesthesia: Yes Hx Anesthesia Reactions: No Hx Malignant Hyperthermia: No Meds Allergies/Adverse Reactions: Allergies Allergy/AdvReac Type Severity Reaction Status Date / Time cashew nut Allergy SWELLING Verified 04/07/17 23:17 latex Allergy ANAPHYLAXIS Verified 04/07/17 23:17 naproxen AdvReac SWELLING Verified 04/07/17 23:17 cashews Allergy SWELLING Uncoded 04/07/17 23:17 cats Allergy RASH Uncoded 04/07/17 23:17 Physical Exam - Constitutional Appears: In Acute Distress - Head Exam Head Exam: ATRAUMATIC, NORMOCEPHALIC - Eye Exam Eye Exam: EOMI, Normal appearance, PERRL. absent: Conjunctival injection, Scleral icterus Pupil Exam: NORMAL ACCOMODATION - ENT Exam ENT Exam: Mucous Membranes Dry - Neck Exam Neck exam: Positive for: Full Rom - Respiratory Exam Respiratory Exam: Clear to Auscultation Bilateral, NORMAL BREATHING PATTERN. absent: Accessory Muscle Use, Rales, Rhonchi, Wheezes, Respiratory Distress - Cardiovascular Exam Cardiovascular Exam: Tachycardia, REGULAR RHYTHM, +S1, +S2. absent: Systolic Murmur - GI/Abdominal Exam GI & Abdominal Exam: Normal Bowel Sounds, Soft. absent: Firm, Guarding, Tenderness - Extremities Exam Extremities exam: Positive for: normal inspection. Negative for: pedal edema - Back Exam Back exam: NORMAL INSPECTION. absent: rash noted - Neurological Exam Neurological exam: Alert, CN II-XII Intact, Oriented x3 - Skin Skin Exam: Dry, Intact, Warm Results - Vital Signs Recent Vital Signs: Last Vital Signs Temp 101.2 F H 04/07/17 23:04 Pulse 101 H 04/07/17 23:04 Resp 24 04/07/17 23:04 BP 132/55 L 04/07/17 23:04 Pulse Ox 97 04/07/17 23:04 - Labs Result Diagrams: 04/07/17 23:30 04/07/17 23:30 Labs: Laboratory Results - last 24 hr 04/07/17 04/07/17 04/07/17 23:30 23:30 23:30 WBC 6.3 D RBC 3.95 Hgb 12.7 Hct 37.4 MCV 94.7 MCH 32.2 MCHC 34.0 RDW 16.0 H Plt Count 88 L MPV 9.9 Neutrophils % (Manual) 78 H Band Neutrophils % 2 Lymphocytes % (Manual) 10 L Monocytes % (Manual) 10 H Platelet Evaluation Low pO2 45 VBG pH 7.33 VBG pCO2 30.0 L VBG HCO3 15.8 L VBG Total CO2 16.7 L VBG O2 Sat (Calc) 78.5 H VBG Base Excess -8.8 L VBG Potassium 3.7 Sodium 141.0 141 Chloride 115.0 H 112 H Glucose 166 H Lactate 2.8 H FiO2 21.0 Potassium 3.6 Carbon Dioxide 17 L Anion Gap 16 BUN 15 Creatinine 1.2 Est GFR ( Amer) 54 Est GFR (Non-Af Amer) 44 Random Glucose 161 H Calcium 9.0 Phosphorus 3.5 Magnesium 1.6 L Total Bilirubin 2.2 H AST 28 ALT 41 Alkaline Phosphatase 128 Total Protein 7.0 Albumin 3.3 Globulin 3.8 Albumin/Globulin Ratio 0.9 L Venous Blood Potassium 3.7 Urine Color Urine Appearance Urine pH Ur Specific [place] Urine Protein Urine Glucose (UA) Urine Ketones Urine Blood Urine Nitrate Urine Bilirubin Urine Urobilinogen Ur Leukocyte Esterase Urine RBC Urine WBC Ur Epithelial Cells Urine Bacteria 04/08/17 00:30 WBC RBC Hgb Hct MCV MCH MCHC RDW Plt Count MPV Neutrophils % (Manual) Band Neutrophils % Lymphocytes % (Manual) Monocytes % (Manual) Platelet Evaluation pO2 VBG pH VBG pCO2 VBG HCO3 VBG Total CO2 VBG O2 Sat (Calc) VBG Base Excess VBG Potassium Sodium Chloride Glucose Lactate FiO2 Potassium Carbon Dioxide Anion Gap BUN Creatinine Est GFR ( Amer) Est GFR (Non-Af Amer) Random Glucose Calcium Phosphorus Magnesium Total Bilirubin AST ALT Alkaline Phosphatase Total Protein Albumin Globulin Albumin/Globulin Ratio Venous Blood Potassium Urine Color Yellow Urine Appearance Turbid Urine pH 6.0 Ur Specific [place] 1.010 Urine Protein Negative Urine Glucose (UA) Negative Urine Ketones Negative Urine Blood Large H Urine Nitrate Positive H Urine Bilirubin Negative Urine Urobilinogen 0.2 Ur Leukocyte Esterase Large H Urine RBC 10 - 15 Urine WBC Tntc Ur Epithelial Cells 3 - 4 Urine Bacteria Mod Assessment & Plan - Assessment and Plan (Free Text) Assessment: 71 yo female PMHx of DM type 2, nephrolithiasis, pyelonephritis, recurrent UTI' s, hypokalemia, Crohn's disease, depression presents with fever and generalized weakness for 1 day Plan: Urosepsis -patient has hx of recurrent UTI -UA: + large blood + nitrate + large leuk esterase -1gm vancomycin given in ED -Zosyn 3.375 in NS 100 ml -Tylenol 650mg po q6 prn temp > 100.4F -f/u urine culture -f/u blood culture -ID Dr. Mckenna consulted- f/u recommendations Hx of DM2 -RISS low dose -Accucheck -f/u HgbA1c Hx of Crohn's Disease -Continue home medication Pentasa 500mg po bid Hx of depression -Continue home medication Zoloft 100mg po daily PPX -Protonix 20mg po bid -SCDs -Heart healthy diet -NS @ 75cc/hr Case discussed with Dr. Sudha Yap PGY2
[2017-04-08] MEDS ORDERED: Sodium Chloride 0.9% 1,000 ML IV SCH ×2 (01:45→04:51)
[2017-04-08 02:28] LABS: VENOUS BLOOD GAS PO2 143 mm/Hg (30-55); VENOUS BLOOD PH 7.37 (7.32-7.43)
[2017-04-08] MEDS ORDERED: Sodium Chloride 0.9% 1,000 ML IV STA ×2 (04:29→05:40)
[2017-04-08] MEDS: Piperacillin/Tazobact 3.375 gm 100 ML IVPB SCH ×4 (07:13→23:06)
[2017-04-08] MEDS ORDERED: Magnesium Sulfate 1 gm in D5W 1 GM/100 ML BAG IVPB ONE (07:13)
[2017-04-08] MEDS: Pantoprazole 20 mg EC Tab PO SCH ×2 (07:13→16:27)
[2017-04-08] MEDS: Sodium Chloride 0.9% 1,000 ML IV SCH ×3 (07:13→22:14)
--- NOTE | 2017-04-08 08:38 | RAD ---
HISTORY: Sepsis Patient COMPARISON: No prior. FINDINGS: LUNGS: No active pulmonary disease. PLEURA: No significant pleural effusion identified, no pneumothorax apparent. CARDIOVASCULAR: Normal. OSSEOUS STRUCTURES: No significant abnormalities. VISUALIZED UPPER ABDOMEN: Normal. OTHER FINDINGS: None. IMPRESSION: No active disease.
[2017-04-08] MEDS: Insulin Lispro (humaLOG) LOW Coverage SC SCH ×4 (09:12→22:15)
[2017-04-08] MEDS: Mesalamine ER Cap 500 MG PO SCH ×2 (10:25→20:30)
--- NOTE | 2017-04-08 11:07 | CARD ---
APPROVED REPORT EKG Measurement Heart [id number] <Conclusion> Sinus tachycardia Left axis deviation PRWP NSSTW changes
--- NOTE | 2017-04-08 14:17 | CP.PCM.CON ---
History of Present Illness - History of Present Illness History of Present Illness: 71 year old female with PMH of Crohn's disease, DM, history of pyelonephritis, bilateral nephrolithiasis, S/P cholecystectomy, S/P tubal ligation, history of right sided pyelonephritis associated with nephrolithiasis with E. faecalis came in to [facility] complaining of fevers and chills and dysuria for the past 2-3 days. She also noted her urine to be malodorous. She denies vomiting, but she also had nausea. She denies headache or dizziness, no chest pain, no hematuria, no flank pain, no chest pain, no SOB, no abdominal pain, no diarrhea. Her urinalysis shows pyuria. Infectious Diseases consult is requested to further evaluate and manage. Review of Systems - Review of Systems All systems: reviewed and no additional remarkable complaints except (as per HPI ) Past Patient History - Infectious Disease Hx of Infectious Diseases: None - Tetanus Immunizations Tetanus Immunization: Unknown - Past Social History Smoking Status: Never Smoked - CARDIAC Hx Hypertension: Yes - PULMONARY Hx Respiratory Disorders: Yes Hx Asthma: Yes - NEUROLOGICAL Hx Neurological Disorder: Yes - HEENT Hx HEENT Problems: No Hx Cataracts: Yes - RENAL Hx Chronic Kidney Disease: Yes Hx Kidney Stones: Yes Other/Comment: RENAL CALCULI - ENDOCRINE/METABOLIC Hx Diabetes Mellitus Type 2: Yes (NIDD) - HEMATOLOGICAL/ONCOLOGICAL Hx Blood Disorders: Yes - INTEGUMENTARY Hx Dermatological Problems: No - MUSCULOSKELETAL/RHEUMATOLOGICAL Hx Musculoskeletal Disorders: Yes (RIB INJURY) Hx Back Pain: Yes Hx Falls: Yes (FELL 17 SLIPPED OFF BED.ATTEMPTED TO GET UP.) Hx Fractures: Yes (ELBOW) Hx Unsteady Gait: Yes (CANE) Other/Comment: CERVICAL RADICULOPATHY - GASTROINTESTINAL Hx Gastrointestinal Disorders: Yes Hx Crohn's Disease: Yes Other/Comment: CHOLELITHAISIS. GASTRIC BYPASS - GENITOURINARY/GYNECOLOGICAL Hx Genitourinary Disorders: Yes (PYELONEPHRITIS,PSEUDOMONAS UTI,RENAL CA) Other/Comment: kidney stone - PSYCHIATRIC Hx Psychophysiologic Disorder: Yes Hx Depression: Yes Hx Emotional Abuse: No Hx Physical Abuse: No Hx Substance Use: No - SURGICAL HISTORY Hx Cholecystectomy: Yes Hx Gastric Bypass Surgery: Yes Other/Comment: kidney surgery - ANESTHESIA Hx Anesthesia: Yes Hx Anesthesia Reactions: No Hx Malignant Hyperthermia: No Meds Allergies/Adverse Reactions: Allergies Allergy/AdvReac Type Severity Reaction Status Date / Time cashew nut Allergy SWELLING Verified 04/07/17 23:17 latex Allergy ANAPHYLAXIS Verified 04/07/17 23:17 naproxen AdvReac SWELLING Verified 04/07/17 23:17 cashews Allergy SWELLING Uncoded 04/07/17 23:17 cats Allergy RASH Uncoded 04/07/17 23:17 - Medications Medications: Current Medications Acetaminophen (Tylenol 325mg Tab) 650 mg PO Q6H PRN PRN Reason: Fever >100.4 F Piperacillin Sod/Tazobactam Sod (Zosyn 3.375 In Ns 100ml) 100 mls @ 200 mls/hr IVPB Q6 AGNES PRN Reason: Protocol Stop: 04/08/17 12:29 Sodium Chloride (Sodium Chloride 0.9%) 1,000 mls @ 125 mls/hr IV .Q8H AGNES Insulin Human Lispro (Humalog Low) 0 units SC ACHS AGNES PRN Reason: Protocol Mesalamine (Pentasa) 500 mg PO BID AGNES Pantoprazole Sodium (Protonix Ec Tab) 20 mg PO 0600,1600 AGNES Sertraline HCl (Zoloft) 100 mg PO DAILY AGNES Physical Exam - Constitutional Appears: Non-toxic, No Acute Distress - Head Exam Head Exam: NORMAL INSPECTION - Neck Exam Neck exam: Negative for: Meningismus - Respiratory Exam Respiratory Exam: Decreased Breath Sounds - Cardiovascular Exam Cardiovascular Exam: +S1, +S2 - GI/Abdominal Exam GI & Abdominal Exam: Soft. absent: Tenderness Results - Vital Signs Recent Vital Signs: Last Vital Signs Temp 98 F 04/08/17 04:54 Pulse 63 04/08/17 04:54 Resp 18 04/08/17 04:54 BP 84/45 L 04/08/17 04:54 Pulse Ox 96 04/08/17 04:54 - Labs Result Diagrams: 04/07/17 23:30 04/07/17 23:30 Labs: Laboratory Results - last 24 hr 04/08/17 02:00 pO2 143 H VBG pH 7.37 VBG pCO2 25.0 L VBG HCO3 14.5 L VBG Total CO2 15.3 L VBG O2 Sat (Calc) 94.4 H VBG Base Excess -9.0 L VBG Potassium 3.0 L Sodium 140.0 Chloride 121.0 H Glucose 148 H Lactate 2.0 FiO2 21.0 Venous Blood Potassium 3.0 L Assessment & Plan - Assessment and Plan (Free Text) Plan: Assessment sepsis probably due to urinary tract infection in a patient with a history of nephrolithiasis history of right sided pyelonephritis associated with nephrolithiasis with E. faecalis Crohn's disease DM history of pyelonephritis bilateral nephrolithiasis S/P cholecystectomy S/P tubal ligation Plan based on previous cultures, we have started the patient on Zosyn pending blood cx, urine cx; would suggest Urology evaluation will order renal ultrasound since has a history of nephrolithiasis Will follow clinically
[2017-04-09] MEDS: Piperacillin/Tazobact 3.375 gm 100 ML IVPB SCH (05:22)
[2017-04-09] MEDS: Pantoprazole 20 mg EC Tab PO SCH ×2 (05:22→17:47)
[2017-04-09] MEDS: Sodium Chloride 0.9% 1,000 ML IV SCH ×2 (07:47→15:41)
[2017-04-09 08:02] LABS: BASO # 0.01 K/mm3 (0.0-2.0); BASO % 0.3 % (0.0-3.0); EOS # 0.1 (0.0-0.7); EOS % 2.8 % (1.5-5.0); GRAN # 3.09 (1.4-6.5); GRAN % 80.1 % (50.0-68.0); HEMOGLOBIN 9.9 gm/dL (12.0-16.0); LYMPH # 0.2 (1.2-3.4); LYMPH % 6.2 % (22.0-35.0); MEAN CORPUSCULAR HEMOGLOBIN 30.8 pg (25.0-35.0); MEAN CORPUSCULAR HGB CONC 32.5 g/dl (31.0-37.0); MEAN PLATELET VOLUME 9.9 fl (7.0-11.0); MONO # 0.4 (0.1-0.6); MONO % 10.6 % (1.0-6.0); PLATELET COUNT 58 10^3/uL (120.0-450.0); RBC 3.21 10^6/uL (3.5-6.1); RED CELL DISTRIBUTION WIDTH 15.9 % (11.5-14.5); WHITE BLOOD COUNT 3.9 10^3/ul (4.5-11.0)
[2017-04-09] MEDS: Insulin Lispro (humaLOG) LOW Coverage SC SCH ×4 (08:06→21:53)
[2017-04-09 08:08] LABS: ALB/GLOB RATIO 0.7 (1.1-1.8); ALBUMIN 2.1 g/dL (3.0-4.8); ALT/SGPT 30 U/L (7-56); AST/SGOT 20 U/L (15-39); BLOOD UREA NITROGEN 10 mg/dL (7-21); GFR AFRICAN-AMERICAN > 60; GFR NON-AFRICAN AMERICAN 55; MAGNESIUM 1.6 mg/dL (1.7-2.2)
[2017-04-09 08:20] LABS: CALCIUM 6.7 mg/dL (8.4-10.5)
[2017-04-09] MEDS ORDERED: Sodium Chloride 0.9% 1,000 ML IV STA ×4 (08:21→12:31)
[2017-04-09] MEDS ORDERED: Potassium & Sodium Phosphate PO ONE (08:21)
[2017-04-09] MEDS ORDERED: Potassium Chloride 20 mEq ER Tab PO STA (08:22)
[2017-04-09] MEDS ORDERED: Magnesium Sulfate 2 GM in Sodium Chloride 0.9% 100 ML IVPB ONE (08:23)
--- NOTE | 2017-04-09 09:06 | CP.PCM.PN ---
Subjective - Date & Time of Evaluation Date of Evaluation: 04/09/17 Time of Evaluation: 09:02 - Subjective Subjective: Medicine Progress Note Patient seen and examined at bedside. As per nursing, overnight patient had a fever with Tmax 102.2. It resolved with PO Tylenol. This morning patient feels weak, but denies having any CP, SOB, n/v/d, numbness/tingling. She does admit to suprapubic abdominal pain and fevers/chills. She reports that she has lost a lot of weight this year unintentionally. She has lost over 40lbs. She does have a mammogram every year which have been negative, but has not had a colonoscopy in some time. Objective - Vital Signs/Intake and Output Vital Signs (last 24 hours): Temp Pulse Resp BP Pulse Ox 98.0 F 77 18 90/44 L 98 04/09/17 08:00 04/09/17 08:00 04/09/17 08:00 04/09/17 08:00 04/09/17 08:00 Intake and Output: 04/09/17 04/09/17 06:59 18:59 Intake Total 1740 Balance 1740 - Medications Medications: Current Medications Acetaminophen (Tylenol 325mg Tab) 650 mg PO Q4H PRN PRN Reason: Fever >100.4 F Last Admin: 04/08/17 22:19 Dose: 650 mg Gabapentin (Neurontin) 300 mg PO TID AGNES PRN Reason: Protocol Piperacillin Sod/Tazobactam Sod (Zosyn 3.375 In Ns 100ml) 100 mls @ 200 mls/hr IVPB Q6 AGNES PRN Reason: Protocol Stop: 04/16/17 06:01 Last Admin: 04/09/17 05:22 Dose: 200 mls/hr Sodium Chloride (Sodium Chloride 0.9%) 1,000 mls @ 125 mls/hr IV .Q8H AGNES Last Admin: 04/09/17 07:47 Dose: 125 mls/hr Sodium Chloride (Sodium Chloride 0.9%) 1,000 mls @ 999 mls/hr IV .Q1H1M STA Stop: 04/09/17 09:21 Last Admin: 04/09/17 08:25 Dose: 999 mls/hr Potassium Chloride (Potassium Chloride 10 Meq/100 Ml) 10 meq in 100 mls @ 100 mls/hr IVPB Q2H [facility] Stop: 04/09/17 11:29 Magnesium Sulfate 2 gm/ Sodium (Chloride) 104 mls @ 102 mls/hr IVPB ONCE ONE Stop: 04/09/17 09:24 Insulin Human Lispro (Humalog Low) 0 units SC ACHS [facility] PRN Reason: Protocol Last Admin: 04/09/17 08:06 Dose: Not Given Mesalamine (Pentasa) 500 mg PO BID [facility] Last Admin: 04/08/17 20:30 Dose: 500 mg Pantoprazole Sodium (Protonix Ec Tab) 20 mg PO 0600,1600 [facility] Last Admin: 04/09/17 05:22 Dose: 20 mg Sertraline HCl (Zoloft) 100 mg PO DAILY [facility] Last Admin: 04/08/17 11:35 Dose: 100 mg - Labs Labs: 04/09/17 07:00 04/09/17 07:00 - Constitutional Appears: No Acute Distress, Cachectic - Head Exam Head Exam: ATRAUMATIC, NORMAL INSPECTION, NORMOCEPHALIC - Eye Exam Eye Exam: Normal appearance, PERRL Pupil Exam: Fixed, NORMAL ACCOMODATION - ENT Exam ENT Exam: Mucous Membranes Moist - Neck Exam Neck Exam: Full ROM - Respiratory Exam Respiratory Exam: Clear to Ausculation Bilateral, NORMAL BREATHING PATTERN. absent: Rales, Rhonchi, Wheezes - Cardiovascular Exam Cardiovascular Exam: REGULAR RHYTHM, +S1, +S2. absent: Gallop, Rubs, Murmur - GI/Abdominal Exam GI & Abdominal Exam: Soft, Tenderness (suprapubic), Normal Bowel Sounds. absent : Rigid, Mass, Rebound - Extremities Exam Extremities Exam: Normal Inspection. absent: Calf Tenderness, Pedal Edema - Neurological Exam Neurological Exam: Alert, Awake, CN II-XII Intact, Oriented x3 - Psychiatric Exam Psychiatric exam: Normal Affect, Normal Mood - Skin Skin Exam: Dry, Intact, Normal Color, Warm Assessment and Plan - Assessment and Plan (Free Text) Assessment: This is a 71Y F with PMH DM, recurrent UTIs with nephrolithiasis and pyelonephritis, recurrent hypokalemia, Crohn's disease and depression admitted for sepsis secondary to UTI. Plan: 1. Sepsis - Secondary to UTI - Hypotensive this AM with SBP in 80s - 2L bolus of NS given - Will obtain ICU consultation - Continue NS@125 - ID consulted- recs appreciated - Urine culture pending - Renal U/S showed - Urology, Dr. Horvath consulted - Continue Merrem - Tylenol prn fever 2. Hypokalemia, Hypomagnesia, Hypophophatemia - K: 2.8. M.6, Phos: 2.0 - Neutraphos, Mag and K given - Will repeat K and replace electrolytes as needed - K-dur 20meq and Magox PO daily 3. Unintentional weight loss - Heme consulted - Rule out malignancy - Will follow up hematology recommendations 4. NIDDM - HgbA1 pending - ISS - Continue BGM ACHS 5. Hx of Crohn's - Continue Mesalamine 6. Hx of Depression - Continue Zoloft GI ppx: Protonix DVT ppx: SCDs Dispo: Awaiting physical therapy evaluation. Case seen, discussed and reviewed with attending Rosalino Lawrence PGY2
--- NOTE | 2017-04-09 10:06 | US ---
PROCEDURE: Ultrasound of the Kidneys HISTORY: rule out hydronephrosis COMPARISON: CT abdomen pelvis 11/10/2016. TECHNIQUE: Sonogram of the kidneys. FINDINGS: RIGHT KIDNEY: Measures: 14.2 cm. Unremarkable in echogenicity. Severe hydronephrosis secondary to an obstructing 3.9 cm stone in the renal pelvis. No shadowing cyst is identified. Additional nonobstructing 1 cm stone noted in the mid/lower pole. LEFT KIDNEY: Measures: 11.9 cm. Unremarkable in echogenicity. Nonobstructing 1.6 cm lower pole stone noted. Nonobstructing stone noted in the upper/ midpole measuring 0.9 cm. Partially Obstructing 2 cm stone in the renal pelvis produces mild hydronephrosis. No cyst identified. OTHER FINDINGS: None IMPRESSION: Severe right hydronephrosis secondary to a 3.9 cm stone in the renal pelvis. Mild left hydronephrosis secondary to a partially obstructing 2 cm stone in the renal pelvis. Additional bilateral nonobstructing renal calculi as above.
[2017-04-09] MEDS: Mesalamine ER Cap 500 MG PO SCH ×2 (11:50→17:46)
[2017-04-09] MEDS: Meropenem 1g/NS 100mL IVPB 1 GM/100 ML PIGGYBACK IVPB SCH ×2 (11:52→21:57)
[2017-04-09 12:24] LABS: ARTERIAL BLOOD GAS HCO3 11.1 mmol/L (21-28); ARTERIAL BLOOD GAS O2 SAT 99.5 % (95-98); ARTERIAL BLOOD GAS PCO2 21 mm/Hg (35-45); ARTERIAL BLOOD GAS PH 7.33 (7.35-7.45); ARTERIAL BLOOD GAS TCO2 11.7 mmol.L (22-28)
[2017-04-09] MEDS ORDERED: Sodium Chloride 0.9% 2,000 ML IV STA (12:28)
--- NOTE | 2017-04-09 12:34 | CP.CCUPN ---
CCU Subjective - Physician Review Events Since Last Encounter (Free Text): 04/09/17 12:29 71 y/o F admitted to the medical floors due to fevers at home. In the hospital the work up for her fevers have begun and urine vs Colitis have been the potential sourced. I was called to evaluate the patient due to moments of hypotension and concern for septic shock. The patient was aaox 3 , following commands and not in any distress. She was sitting up in bed and eating her breakfast. CCU Objective - Vital Signs / Intake & Output Vital Signs (Last 4 hours): Vital Signs Temp 04/09/17 10:01 98.1 F 04/09/17 09:01 99.7 F H Intake and Output (Last 8hrs): Intake & Output 04/08/17 04/09/17 04/09/17 22:59 06:59 14:59 Intake Total 1740 Balance 1740 Intake: Oral 1740 Other: # Voids Urine, Voided 3 # Bowel Movements 0 - Physical Exam Head: Positive for: Atraumatic, Normocephalic Pupils: Positive for: PERRL Extroacular Muscles: Positive for: EOMI Conjunctiva: Positive for: Normal Mouth: Positive for: Moist Mucous Membranes, Dry Neck: Positive for: Normal Range of Motion Respiratory/Chest: Positive for: Clear to Auscultation, Good Air Exchange. Negative for: Respiratory Distress, Accessory Muscle Use Cardiovascular: Positive for: Regular Rate and Rhythm, Normal S1, S2. Negative for: Murmurs Abdomen: Positive for: Normal Bowel Sounds. Negative for: Tenderness, Distention, Peritoneal Signs Back: Positive for: Normal Inspection Upper Extremity: Positive for: Normal Inspection. Negative for: Cyanosis, Edema Lower Extremity: Positive for: Normal Inspection. Negative for: Edema Neurological: Positive for: GCS=15, CN II-XII Intact, Speech Normal Skin: Positive for: Warm, Dry, Normal Color. Negative for: Rashes Psychiatric: Positive for: Alert, Oriented x 3, Normal Insight, Normal Concentration - Medications Active Medications: Active Medications Generic Name Dose Route Start Last Admin Trade Name Freq PRN Reason Stop Dose Admin Acetaminophen 650 mg 04/08/17 17:31 04/09/17 09:01 Tylenol 325mg Tab PO 650 mg Q4H PRN Administration Fever >100.4 F Gabapentin 300 mg 04/09/17 10:00 04/09/17 11:54 Neurontin PO Not Given TID AGNES Protocol Sodium Chloride 1,000 mls @ 125 mls/hr 04/08/17 05:40 04/09/17 07:47 Sodium Chloride 0.9% IV 125 mls/hr .Q8H AGNES Administration Meropenem 1g/NS 100mL IVPB 1 gm in 100 mls @ 100 mls/hr 04/09/17 10:00 11:52 Meropenem 1g/Ns 100ml Ivpb IVPB 04/16/17 10:01 100 mls/hr Q12 AGENS Administration Protocol Sodium Chloride 1,000 mls @ 999 mls/hr 04/09/17 12:26 Sodium Chloride 0.9% IV 04/09/17 13:26 .Q1H1M STA Sodium Chloride 2,000 mls @ 999 mls/hr 04/09/17 12:28 Sodium Chloride 0.9% IV 04/09/17 14:28 .Q2H1M STA Insulin Human Lispro 0 units 04/08/17 07:30 04/09/17 11:49 Humalog Low SC 2 units ACHS AGNES Administration Protocol Magnesium Oxide 400 mg 04/10/17 10:00 Mag-Ox PO DAILY AGNES Mesalamine 500 mg 04/08/17 10:00 04/09/17 11:50 Pentasa PO 500 mg BID AGNES Administration Pantoprazole Sodium 20 mg 04/08/17 06:00 04/09/17 05:22 Protonix Ec Tab PO 20 mg 0600,1600 AGNSE Administration Potassium Chloride 20 meq 04/10/17 08:00 K-Dur 20 Meq Er Tab PO BRK AGNES Sertraline HCl 100 mg 04/08/17 10:00 04/09/17 11:55 Zoloft PO Not Given DAILY AGNES Tamsulosin HCl 0.4 mg 04/09/17 10:45 04/09/17 11:54 Flomax PO Not Given DAILY AGNES - Patient Studies Lab Studies: Lab Studies 04/09/17 04/09/17 04/08/17 Range/Units 07:00 07:00 22:06 WBC 3.9 L D (4.5-11.0) 10^3/ul RBC 3.21 L (3.5-6.1) 10^6/uL Hgb 9.9 L (12.0-16.0) gm/dL Hct 30.5 L (36.0-48.0) % MCV 95.0 (80.0-105.0) fL MCH 30.8 (25.0-35.0) pg MCHC 32.5 (31.0-37.0) g/dl RDW 15.9 H (11.5-14.5) % Plt Count 58 L (120.0-450.0) 10^3/uL MPV 9.9 (7.0-11.0) fl Gran % 80.1 H (50.0-68.0) % Lymph % (Auto) 6.2 L (22.0-35.0) % [place] % (Auto) 10.6 H (1.0-6.0) % Eos % (Auto) 2.8 (1.5-5.0) % Baso % (Auto) 0.3 (0.0-3.0) % Gran # 3.09 (1.4-6.5) Lymph # 0.2 L (1.2-3.4) [place] # 0.4 (0.1-0.6) Eos # 0.1 (0.0-0.7) Baso # 0.01 (0.0-2.0) K/mm3 Sodium 140 (132-148) mmol/L Potassium 2.8 L* (3.6-5.0) mmol/L Chloride 116 H (98-107) mmol/L Carbon Dioxide 17 L (21-33) mmol/L Anion Gap 10 (10-20) BUN 10 (7-21) mg/dL Creatinine 1.0 (0.5-1.4) mg/dL Est GFR ( Amer) > 60 Est GFR (Non-Af Amer) 55 POC Glucose (mg/dL) 145 H (65-110) mg/dL Random Glucose 117 H (70-110) mg/dL Calcium 6.7 L* (8.4-10.5) mg/dL Phosphorus 2.0 L (2.5-4.5) mg/dL Magnesium 1.6 L (1.7-2.2) mg/dL Total Bilirubin 1.4 H (0.2-1.3) mg/dL AST 20 (15-39) U/L ALT 30 (7-56) U/L Alkaline Phosphatase 85 (38-133) U/L Total Protein 5.3 L (5.8-8.3) g/dL Albumin 2.1 L (3.0-4.8) g/dL Globulin 3.1 gm/dL Albumin/Globulin Ratio 0.7 L (1.1-1.8) 04/08/17 04/08/17 Range/Units 16:29 07:54 WBC (4.5-11.0) 10^3/ul RBC (3.5-6.1) 10^6/uL Hgb (12.0-16.0) gm/dL Hct (36.0-48.0) % MCV (80.0-105.0) fL MCH (25.0-35.0) pg MCHC (31.0-37.0) g/dl RDW (11.5-14.5) % Plt Count (120.0-450.0) 10^3/uL MPV (7.0-11.0) fl Gran % (50.0-68.0) % Lymph % (Auto) (22.0-35.0) % [place] % (Auto) (1.0-6.0) % Eos % (Auto) (1.5-5.0) % Baso % (Auto) (0.0-3.0) % Gran # (1.4-6.5) Lymph # (1.2-3.4) [place] # (0.1-0.6) Eos # (0.0-0.7) Baso # (0.0-2.0) K/mm3 Sodium (132-148) mmol/L Potassium (3.6-5.0) mmol/L Chloride (98-107) mmol/L Carbon Dioxide (21-33) mmol/L Anion Gap (10-20) BUN (7-21) mg/dL Creatinine (0.5-1.4) mg/dL Est GFR ( Amer) Est GFR (Non-Af Amer) POC Glucose (mg/dL) 278 H 123 H (65-110) mg/dL Random Glucose (70-110) mg/dL Calcium (8.4-10.5) mg/dL Phosphorus (2.5-4.5) mg/dL Magnesium (1.7-2.2) mg/dL Total Bilirubin (0.2-1.3) mg/dL AST (15-39) U/L ALT (7-56) U/L Alkaline Phosphatase (38-133) U/L Total Protein (5.8-8.3) g/dL Albumin (3.0-4.8) g/dL Globulin gm/dL Albumin/Globulin Ratio (1.1-1.8) Laboratory Results - last 24 hr 04/08/17 04/08/17 04/08/17 07:54 16:29 22:06 WBC RBC Hgb Hct MCV MCH MCHC RDW Plt Count MPV Gran % Lymph % (Auto) [place] % (Auto) Eos % (Auto) Baso % (Auto) Gran # Lymph # [place] # Eos # Baso # Sodium Potassium Chloride Carbon Dioxide Anion Gap BUN Creatinine Est GFR ( Amer) Est GFR (Non-Af Amer) POC Glucose (mg/dL) 123 H 278 H 145 H Random Glucose Calcium Phosphorus Magnesium Total Bilirubin AST ALT Alkaline Phosphatase Total Protein Albumin Globulin Albumin/Globulin Ratio 04/09/17 04/09/17 07:00 07:00 WBC 3.9 L D RBC 3.21 L Hgb 9.9 L Hct 30.5 L MCV 95.0 MCH 30.8 MCHC 32.5 RDW 15.9 H Plt Count 58 L MPV 9.9 Gran % 80.1 H Lymph % (Auto) 6.2 L [place] % (Auto) 10.6 H Eos % (Auto) 2.8 Baso % (Auto) 0.3 Gran # 3.09 Lymph # 0.2 L [place] # 0.4 Eos # 0.1 Baso # 0.01 Sodium 140 Potassium 2.8 L* Chloride 116 H Carbon Dioxide 17 L Anion Gap 10 BUN 10 Creatinine 1.0 Est GFR ( Amer) > 60 Est GFR (Non-Af Amer) 55 POC Glucose (mg/dL) Random Glucose 117 H Calcium 6.7 L* Phosphorus 2.0 L Magnesium 1.6 L Total Bilirubin 1.4 H AST 20 ALT 30 Alkaline Phosphatase 85 Total Protein 5.3 L Albumin 2.1 L Globulin 3.1 Albumin/Globulin Ratio 0.7 L Fingerstick Blood Sugar Results: 204 Critical Care Progress Note - Nutrition Nutrition: Nutrition Category Date Time Status Heart Healthy Diet [DIET] Diets 04/08/17 Breakfast Ordered Assessment/Plan - Assessment and Plan (Free Text) Assessment: 71 y/o F W/ SIRS SEPSIS with potential sources of Colitis vs Urine. Hx of Crohns dz with multiple flares in the past. Will need CT abd/ pelvis w/ p.o contrast . GI consult Empiric abx started and upgraded by ID to Meropenum. CX pending. UA shows infection, w/ cx pending on ABX. Will continue with volume 2 more Liters of NS to be given. ABg needed . Noted to have Bicarbonate of 17 w/ likely acidosis . Urology consult placed in the event that intervention w/ Stent or nephrostomy tube is needed. I&) to be measured. Check coag profile, replace electrolytes manul BP's needed w/ appropriate cuff. If further hypotension occurs after treatment and need for vasopressors please contact the ICU. Thank you case d/w nurse and Residents. cc time 65 min
[2017-04-09] MEDS ORDERED: Iohexol 240 (50 ml) ONE (12:42)
--- NOTE | 2017-04-09 12:56 | CP.PCM.PN ---
Subjective - Date & Time of Evaluation Date of Evaluation: 04/09/17 Time of Evaluation: 11:50 - Subjective Subjective: Patient having hypotensive episodes and is still having fevers and still feels weak. Objective - Vital Signs/Intake and Output Vital Signs (last 24 hours): Temp Pulse Resp BP Pulse Ox 102.1 F H 80 16 119/55 L 94 L 04/08/17 22:19 04/08/17 16:52 04/08/17 16:52 04/08/17 16:52 04/08/17 16:52 Intake and Output: 04/09/17 04/09/17 06:59 18:59 Intake Total 1740 Balance 1740 - Medications Medications: Current Medications Acetaminophen (Tylenol 325mg Tab) 650 mg PO Q4H PRN PRN Reason: Fever >100.4 F Last Admin: 04/08/17 22:19 Dose: 650 mg Gabapentin (Neurontin) 300 mg PO TID [facility] PRN Reason: Protocol Piperacillin Sod/Tazobactam Sod (Zosyn 3.375 In Ns 100ml) 100 mls @ 200 mls/hr IVPB Q6 AGNES PRN Reason: Protocol Stop: 04/16/17 06:01 Last Admin: 04/09/17 05:22 Dose: 200 mls/hr Sodium Chloride (Sodium Chloride 0.9%) 1,000 mls @ 125 mls/hr IV .Q8H [facility] Last Admin: 04/08/17 22:14 Dose: 125 mls/hr Insulin Human Lispro (Humalog Low) 0 units SC ACHS AGNES PRN Reason: Protocol Last Admin: 04/08/17 22:15 Dose: Not Given Mesalamine (Pentasa) 500 mg PO BID [facility] Last Admin: 04/08/17 20:30 Dose: 500 mg Pantoprazole Sodium (Protonix Ec Tab) 20 mg PO 0600,1600 [facility] Last Admin: 04/09/17 05:22 Dose: 20 mg Sertraline HCl (Zoloft) 100 mg PO DAILY [facility] Last Admin: 04/08/17 11:35 Dose: 100 mg - Constitutional Appears: Non-toxic, No Acute Distress - Head Exam Head Exam: NORMAL INSPECTION - ENT Exam ENT Exam: Mucous Membranes Moist - Neck Exam Neck Exam: absent: Lymphadenopathy, Meningismus - Respiratory Exam Respiratory Exam: Decreased Breath Sounds - Cardiovascular Exam Cardiovascular Exam: +S1, +S2 - GI/Abdominal Exam GI & Abdominal Exam: Soft. absent: Tenderness Assessment and Plan - Assessment and Plan (Free Text) Plan: Assessment severe sepsis with hypotensive episodes probably due to urinary tract infection in a patient with a history of nephrolithiasis history of right sided pyelonephritis associated with nephrolithiasis with E. faecalis Crohn's disease DM history of pyelonephritis bilateral nephrolithiasis S/P cholecystectomy S/P tubal ligation Plan we have changed Zosyn to Merrem and will give a dose of IV amikacin pending blood and urine cx; follow up renal ultrasound results ICU team has evaluated the patient will monitor clinically
[2017-04-09] MEDS ORDERED: Gentamicin 80 mg/2mL Inj. IVPB ONE (13:00)
[2017-04-09 13:12] LABS: INR 1.86 (0.93-1.08); PARTIAL THROMBOPLASTIN TIME 39.5 Seconds (23.7-30.8); PROTHROMBIN TIME 20.1 Seconds (9.9-11.8)
[2017-04-09] MEDS ORDERED: Gentamicin 190 MG in Sodium Chloride 0.9% 100 ML IVPB ONE (13:15)
[2017-04-09] MEDS ORDERED: Sodium Bicarbonate (8.4%) 50 Meq Syringe IVP ONE (14:47)
[2017-04-09] MEDS ORDERED: Potassium Chloride 40 mEq/30 ml LIQ UD PO STA (16:40)
--- NOTE | 2017-04-09 16:56 | CP.PCM.CON ---
History of Present Illness - History of Present Illness History of Present Illness: Hematology Consult Referred by Dr. Browne for pancytopenia, weight loss HPI- Ms Cloud is known to Dr. Wynn. She is 71 y/o F with h/o DM, nephrolithiasis, pyelonephritis, recurrent UTI's, hypokalemia, Crohn's disease, depression presents to ED with fever and generalized weakness since the day before admission. She follows with Dr. Wynn for pancytopenia. Bone marrow biopsy in Apr 2016 was unremarkable with no evidence of myelodysplasia. She does get IV iron as outpatient and her blood counts have been stable overall. During this admission, she was found to have UTI. US renal showed nephrolithiasis causing severe right hydronephrosis and mild left hydronephrosis. Currently on IV antibiotics. She also gives history of recent weight loss with normal appetite. Recent imaging reviewed did not show any evidence of malignancy. She has a h/o Crohn's disease but didn't have any recent colonoscopy. Denies GI symptoms. PMHx: DM type 2, nephrolithiasis, pyelonephritis, recurrent UTI's, hypokalemia, Crohn's disease, depression PSurgHx: Cholecystectomy, gastric bypass, tubal ligation Family Hx: Noncontributory Social Hx: Denies tobacco, alcohol and illicit drug use Allergy: Cashews, Latex, Naproxen, Cat dander Review of Systems - Review of Systems All systems: reviewed and no additional remarkable complaints except Review of Systems: as in HPI Past Patient History - Infectious Disease Hx of Infectious Diseases: None - Tetanus Immunizations Tetanus Immunization: Unknown - Past Social History Smoking Status: Never Smoked - CARDIAC Hx Hypertension: Yes - PULMONARY Hx Respiratory Disorders: Yes Hx Asthma: Yes - NEUROLOGICAL Hx Neurological Disorder: Yes - HEENT Hx HEENT Problems: No Hx Cataracts: Yes - RENAL Hx Chronic Kidney Disease: Yes Hx Kidney Stones: Yes Other/Comment: RENAL CALCULI - ENDOCRINE/METABOLIC Hx Diabetes Mellitus Type 2: Yes (NIDD) - HEMATOLOGICAL/ONCOLOGICAL Hx Blood Disorders: Yes - INTEGUMENTARY Hx Dermatological Problems: No - MUSCULOSKELETAL/RHEUMATOLOGICAL Hx Musculoskeletal Disorders: Yes (RIB INJURY) Hx Back Pain: Yes Hx Falls: Yes (FELL 17 SLIPPED OFF BED.ATTEMPTED TO GET UP.) Hx Fractures: Yes (ELBOW) Hx Unsteady Gait: Yes (CANE) Other/Comment: CERVICAL RADICULOPATHY - GASTROINTESTINAL Hx Gastrointestinal Disorders: Yes Hx Crohn's Disease: Yes Other/Comment: CHOLELITHAISIS. GASTRIC BYPASS - GENITOURINARY/GYNECOLOGICAL Hx Genitourinary Disorders: Yes (PYELONEPHRITIS,PSEUDOMONAS UTI,RENAL CA) Other/Comment: kidney stone - PSYCHIATRIC Hx Psychophysiologic Disorder: Yes Hx Depression: Yes Hx Emotional Abuse: No Hx Physical Abuse: No Hx Substance Use: No - SURGICAL HISTORY Hx Cholecystectomy: Yes Hx Gastric Bypass Surgery: Yes Other/Comment: kidney surgery - ANESTHESIA Hx Anesthesia: Yes Hx Anesthesia Reactions: No Hx Malignant Hyperthermia: No Meds Allergies/Adverse Reactions: Allergies Allergy/AdvReac Type Severity Reaction Status Date / Time cashew nut Allergy SWELLING Verified 04/07/17 23:17 latex Allergy ANAPHYLAXIS Verified 04/07/17 23:17 naproxen AdvReac SWELLING Verified 04/07/17 23:17 cashews Allergy SWELLING Uncoded 04/07/17 23:17 cats Allergy RASH Uncoded 04/07/17 23:17 - Medications Medications: Current Medications Acetaminophen (Tylenol 325mg Tab) 650 mg PO Q4H PRN PRN Reason: Fever >100.4 F Last Admin: 04/09/17 09:01 Dose: 650 mg Gabapentin (Neurontin) 300 mg PO TID [facility]ES PRN Reason: Protocol Last Admin: 04/09/17 14:08 Dose: Not Given Meropenem 1g/NS 100mL IVPB (Meropenem 1g/Ns 100ml Ivpb) 1 gm in 100 mls @ 100 mls/hr IVPB Q12 [facility]ES PRN Reason: Protocol Stop: 04/16/17 10:01 Last Admin: 04/09/17 11:52 Dose: 100 mls/hr Sodium Bicarbonate 150 meq/ (Sodium Chloride) 1,150 mls @ 100 mls/hr IV .[id number] [facility] Insulin Human Lispro (Humalog Low) 0 units SC ACHS AGNES PRN Reason: Protocol Last Admin: 04/09/17 11:49 Dose: 2 units Magnesium Oxide (Mag-Ox) 400 mg PO DAILY [facility] Mesalamine (Pentasa) 500 mg PO BID [facility] Last Admin: 04/09/17 11:50 Dose: 500 mg Pantoprazole Sodium (Protonix Ec Tab) 20 mg PO 0600,1600 [facility] Last Admin: 04/09/17 05:22 Dose: 20 mg Potassium Chloride (K-Dur 20 Meq Er Tab) 20 meq PO BRK AGNES Sertraline HCl (Zoloft) 100 mg PO DAILY [facility] Last Admin: 04/09/17 11:55 Dose: Not Given Tamsulosin HCl (Flomax) 0.4 mg PO DAILY [facility] Last Admin: 04/09/17 11:54 Dose: Not Given Physical Exam - Head Exam Head Exam: ATRAUMATIC, NORMAL INSPECTION - Eye Exam Eye Exam: EOMI, PERRL - ENT Exam ENT Exam: Mucous Membranes Moist - Neck Exam Neck exam: Negative for: Lymphadenopathy - Respiratory Exam Respiratory Exam: Clear to Auscultation Bilateral - Cardiovascular Exam Cardiovascular Exam: REGULAR RHYTHM - GI/Abdominal Exam GI & Abdominal Exam: Normal Bowel Sounds, Soft. absent: Tenderness - Extremities Exam Extremities exam: Negative for: pedal edema - Neurological Exam Neurological exam: Alert, Oriented x3 Results - Vital Signs Recent Vital Signs: Last Vital Signs Temp 98.1 F 04/09/17 10:01 Pulse 76 04/09/17 09:50 Resp 18 04/09/17 08:00 BP 86/42 L 04/09/17 13:19 Pulse Ox 98 04/09/17 08:00 - Labs Result Diagrams: 04/09/17 07:00 04/09/17 15:00 Labs: Laboratory Results - last 24 hr 04/08/17 04/09/17 04/09/17 22:06 07:00 07:00 WBC 3.9 L D RBC 3.21 L Hgb 9.9 L Hct 30.5 L MCV 95.0 MCH 30.8 MCHC 32.5 RDW 15.9 H Plt Count 58 L MPV 9.9 Gran % 80.1 H Lymph % (Auto) 6.2 L [place] % (Auto) 10.6 H Eos % (Auto) 2.8 Baso % (Auto) 0.3 Gran # 3.09 Lymph # 0.2 L [place] # 0.4 Eos # 0.1 Baso # 0.01 PT INR APTT pCO2 pO2 HCO3 ABG pH ABG Total CO2 ABG O2 Saturation ABG Base Excess ABG Potassium Glucose Lactate FiO2 Sodium 140 Potassium 2.8 L* Chloride 116 H Carbon Dioxide 17 L Anion Gap 10 BUN 10 Creatinine 1.0 Est GFR ( Amer) > 60 Est GFR (Non-Af Amer) 55 POC Glucose (mg/dL) 145 H Random Glucose 117 H Calcium 6.7 L* Phosphorus 2.0 L Magnesium 1.6 L Total Bilirubin 1.4 H AST 20 ALT 30 Alkaline Phosphatase 85 Total Protein 5.3 L Albumin 2.1 L Globulin 3.1 Albumin/Globulin Ratio 0.7 L Arterial Blood Potassium 04/09/17 04/09/17 04/09/17 12:15 12:58 15:00 WBC RBC Hgb Hct MCV MCH MCHC RDW Plt Count MPV Gran % Lymph % (Auto) [place] % (Auto) Eos % (Auto) Baso % (Auto) Gran # Lymph # [place] # Eos # Baso # PT 20.1 H INR 1.86 H APTT 39.5 H pCO2 21 L pO2 149.0 H HCO3 11.1 L ABG pH 7.33 L ABG Total CO2 11.7 L ABG O2 Saturation 99.5 H ABG Base Excess -13.3 L ABG Potassium 2.9 L Glucose 185 H Lactate 2.0 FiO2 28.0 Sodium 148.0 Potassium 3.1 L Chloride 118.0 H Carbon Dioxide Anion Gap BUN Creatinine Est GFR ( Amer) Est GFR (Non-Af Amer) POC Glucose (mg/dL) Random Glucose Calcium Phosphorus Magnesium Total Bilirubin AST ALT Alkaline Phosphatase Total Protein Albumin Globulin Albumin/Globulin Ratio Arterial Blood Potassium 2.9 L Assessment & Plan - Assessment and Plan (Free Text) Assessment: Pancytopenia- possibly due to early MDS Weight loss- unknown etiology Continue to monitor blood counts here. Monitor for bleeding. Recent blood work from office shows normal iron, B12 and folate levels. If her counts change significantly, we could consider repeat bone marrow biopsy. F/u urology recs for management of nephrolithiasis/ hydronephrosis. Continue IV antibiotics. F/U with GI for colonoscopy (as outpatient) once stable. Thank you for the consult Ry Sanches MD - Date & Time Date: 04/09/17 Time: 14:56
--- NOTE | 2017-04-09 19:29 | CT ---
EXAM: CT Abdomen and Pelvis Without Intravenous Contrast CLINICAL HISTORY: 71 years old, female; Pain; Abdominal pain; Patient HX: Diarrhea, kidney stones TECHNIQUE: Axial computed tomography images of the abdomen and pelvis without intravenous contrast. This CT exam was performed using one or more of the following dose reduction techniques: automated exposure control, adjustment of the mA and/or kV according to patient size, and/or use of iterative reconstruction technique. Coronal and sagittal reformatted images were created and reviewed. EXAM DATE/TIME: 04/09/2017 12:26 PM COMPARISON: Prior CT abdomen and pelvis of 11/10/2016 FINDINGS: LOWER THORAX: Small bilateral pleural effusions, a new finding. ABDOMEN: LIVER: No acute abnormality of the liver identified. GALLBLADDER AND BILE DUCTS: Cholecystectomy clips. PANCREAS: No CT evidence of acute pancreatitis. SPLEEN: Mild splenomegaly, with the spleen measuring 15 cm in length. ADRENALS: No acute abnormality of the adrenal glands identified. KIDNEYS AND URETERS: Severe right hydroureteronephrosis, with no definite causative obstructing stones seen. Mild to moderate left hydroureteronephrosis, with no definite causative obstructing stones seen. Since the prior CT, the degree of right hydronephrosis is increased, while the degree of left hydronephrosis is mildly decreased. Extensive bilateral nonobstructing renal stones, including a large 3 cm stone in the right renal pelvis and a large 1.7 cm stone in the left kidney lower pole. STOMACH AND BOWEL: Colonic wall thickening, diffuse in nature, but greatest in the cecum and ascending colon, where there is marked wall thickening. Marked wall thickening involving multiple proximal small bowel loops. Findings are new, and are highly suspicious for enterocolitis Otherwise, no significant abnormality of the bowel is identified. No evidence of pneumatosis intestinalis. No evidence of bowel obstruction. APPENDIX: Normal appendix is not seen, however, there are no significant inflammatory changes visualized in the expected location of the appendix to suggest appendicitis. Recommend clinical correlation. PELVIS: BLADDER: No acute abnormality of the bladder identified. REPRODUCTIVE:No acute abnormality of the reproductive organs is seen. No acute abnormality of the uterus identified. No evidence of large adnexal masses. ABDOMEN and PELVIS: INTRAPERITONEAL SPACE: Moderate amount of abdominal and pelvic free fluid/ascites, a new finding. No evidence of free air. BONES/JOINTS: Bony structures appear demineralized. SOFT TISSUES: Diffuse subcutaneous edema/anasarca, a new finding. VASCULATURE: No evidence of abdominal aortic aneurysm. No evidence of periaortic hemorrhage. LYMPH NODES: No evidence of diffuse lymphadenopathy. IMPRESSION: - Findings highly suspicious for marked enterocolitis, a new finding compared to a prior CT of 11/10/2016. - Moderate abdominal and pelvic free fluid, small bilateral pleural effusions, and diffuse anasarca, also new findings. - Bilateral hydroureteronephrosis, with no causative obstructing stones seen, of uncertain etiology. This was also seen on a prior CT, although the degree of right hydroureter process has increased. - Extensive nonobstructing renal stones. - See above for remaining findings.
[2017-04-09 20:32] LABS: VENOUS BLOOD GAS PO2 64 mm/Hg (30-55); VENOUS BLOOD PH 7.31 (7.32-7.43)
[2017-04-10] MEDS: Pantoprazole 20 mg EC Tab PO SCH ×2 (05:14→17:02)
[2017-04-10 06:05] LABS: HEMOGLOBIN 9.4 gm/dL (12.0-16.0); MEAN CELL VOLUME 94.1 fL (80.0-105.0); MEAN CORPUSCULAR HEMOGLOBIN 30.9 pg (25.0-35.0); MEAN CORPUSCULAR HGB CONC 32.9 g/dl (31.0-37.0); MEAN PLATELET VOLUME 9.4 fl (7.0-11.0); RBC 3.04 10^6/uL (3.5-6.1)
[2017-04-10 06:11] LABS: WHITE BLOOD COUNT 2.5 10^3/ul (4.5-11.0)
[2017-04-10 06:15] LABS: ALB/GLOB RATIO 0.7 (1.1-1.8); ALBUMIN 1.9 g/dL (3.0-4.8); ALT/SGPT 26 U/L (7-56); AST/SGOT 22 U/L (15-39); BLOOD UREA NITROGEN 8 mg/dL (7-21); GFR AFRICAN-AMERICAN > 60; GFR NON-AFRICAN AMERICAN > 60; MAGNESIUM 1.9 mg/dL (1.7-2.2)
[2017-04-10 06:16] LABS: INR 1.7 (0.93-1.08); PARTIAL THROMBOPLASTIN TIME 38.5 Seconds (23.7-30.8); PROTHROMBIN TIME 18.4 Seconds (9.9-11.8)
[2017-04-10 06:21] LABS: CALCIUM 5.9 mg/dL (8.4-10.5)
[2017-04-10] MEDS ORDERED: Potassium & Sodium Phosphate PO ONE (06:45)
[2017-04-10] MEDS ORDERED: Potassium Chloride 20 mEq ER Tab PO ONE (07:27)
[2017-04-10] MEDS ORDERED: Albumin Human 25% (12.5 gm/50 ml) IV ONE ×2 (07:52→16:27)
[2017-04-10] MEDS ORDERED: Potassium Chloride 20 mEq ER Tab PO SCH (08:00)
[2017-04-10] MEDS: Insulin Lispro (humaLOG) LOW Coverage SC SCH ×4 (08:03→22:29)
[2017-04-10] MEDS: Magnesium Oxide 400 mg Tab UD PO SCH (09:04)
[2017-04-10] MEDS: Mesalamine ER Cap 500 MG PO SCH ×2 (09:05→17:43)
[2017-04-10] MEDS: Potassium & Sodium Phosphate PO SCH ×3 (09:05→17:43)
[2017-04-10] MEDS: Meropenem 1g/NS 100mL IVPB 1 GM/100 ML PIGGYBACK IVPB SCH ×2 (10:10→22:07)
[2017-04-10 11:04] LABS: IRON 12 ug/dL (45-180)
[2017-04-10 11:13] LABS: % IRON SATURATION 8 % (20-55); TOTAL IRON BINDING CAPACITY 144 ug/dL (265-497)
--- NOTE | 2017-04-10 11:23 | CP.PCM.PN ---
Subjective - Date & Time of Evaluation Date of Evaluation: 04/10/17 Time of Evaluation: 08:40 - Subjective Subjective: Still feels weak but a little better. No fevers overnight. Objective - Vital Signs/Intake and Output Vital Signs (last 24 hours): Temp Pulse Resp BP Pulse Ox 98.2 F 66 20 98/46 L 98 04/10/17 00:01 04/10/17 02:00 04/10/17 00:01 04/10/17 00:01 04/09/17 08:00 Intake and Output: 04/09/17 04/10/17 18:59 06:59 Intake Total 0 240 Output Total 300 Balance 0 -60 - Medications Medications: Current Medications Acetaminophen (Tylenol 325mg Tab) 650 mg PO Q4H PRN PRN Reason: Fever >100.4 F Last Admin: 04/10/17 03:09 Dose: 650 mg Gabapentin (Neurontin) 300 mg PO TID [facility] PRN Reason: Protocol Last Admin: 04/09/17 17:40 Dose: Not Given Meropenem 1g/NS 100mL IVPB (Meropenem 1g/Ns 100ml Ivpb) 1 gm in 100 mls @ 100 mls/hr IVPB Q12 [facility] PRN Reason: Protocol Stop: 04/16/17 10:01 Last Admin: 04/09/17 21:57 Dose: 100 mls/hr Sodium Bicarbonate 150 meq/ (Sodium Chloride) 1,150 mls @ 100 mls/hr IV .[id number] [facility] Last Admin: 04/10/17 05:19 Dose: 100 mls/hr Insulin Human Lispro (Humalog Low) 0 units SC ACHS [facility] PRN Reason: Protocol Last Admin: 04/09/17 21:53 Dose: Not Given Magnesium Oxide (Mag-Ox) 400 mg PO DAILY [facility] Mesalamine (Pentasa) 500 mg PO BID [facility] Last Admin: 04/09/17 17:46 Dose: 500 mg Pantoprazole Sodium (Protonix Ec Tab) 20 mg PO 0600,1600 [facility] Last Admin: 04/10/17 05:14 Dose: 20 mg Potassium Chloride (K-Dur 20 Meq Er Tab) 20 meq PO BRK [facility] Sertraline HCl (Zoloft) 100 mg PO DAILY [facility] Last Admin: 04/09/17 11:55 Dose: Not Given Tamsulosin HCl (Flomax) 0.4 mg PO DAILY [facility] Last Admin: 04/09/17 11:54 Dose: Not Given - Labs Labs: 04/10/17 05:20 04/10/17 05:20 PT 18.4 Seconds (9.9-11.8) H 04/10/17 05:20 INR 1.70 (0.93-1.08) H 04/10/17 05:20 APTT 38.5 Seconds (23.7-30.8) H 04/10/17 05:20 - Constitutional Appears: Non-toxic, No Acute Distress - Head Exam Head Exam: NORMAL INSPECTION - ENT Exam ENT Exam: Mucous Membranes Moist - Neck Exam Neck Exam: absent: Lymphadenopathy, Meningismus - Respiratory Exam Respiratory Exam: Decreased Breath Sounds - Cardiovascular Exam Cardiovascular Exam: +S1, +S2 - GI/Abdominal Exam GI & Abdominal Exam: Soft. absent: Tenderness Assessment and Plan - Assessment and Plan (Free Text) Plan: Assessment severe sepsis with hypotensive episodes probably due to urinary tract infection in a patient with a history of nephrolithiasis history of right sided pyelonephritis associated with nephrolithiasis with E. faecalis Crohn's disease DM history of pyelonephritis bilateral nephrolithiasis S/P cholecystectomy S/P tubal ligation Plan continue Merrem (day 2, total day 3 of antibiotics) and we have given a dose of IV amikacin yesterday; urine cx showing 2 organisms and we are awaiting to see if the lab is able to identify the organisms; CT A/P showing bilateral hydronephrosis - discussed with Dr. Horvath will continue to monitor clinically
[2017-04-10 13:48] LABS: ALB/GLOB RATIO 0.7 (1.1-1.8); ALBUMIN 2.3 g/dL (3.0-4.8); ALT/SGPT 30 U/L (7-56); AST/SGOT 29 U/L (15-39); BLOOD UREA NITROGEN 7 mg/dL (7-21); GFR AFRICAN-AMERICAN > 60; GFR NON-AFRICAN AMERICAN > 60; MAGNESIUM 1.8 mg/dL (1.7-2.2)
[2017-04-10 13:53] LABS: CALCIUM 5.8 mg/dL (8.4-10.5)
--- NOTE | 2017-04-10 15:24 | CON ---
DATE: GI CONSULTATION CHIEF COMPLIANT: Sepsis. HISTORY OF PRESENT ILLNESS: This is a 71-year-old female with a history of Crohn's. She also has a history of recurrent nephrolithiasis. She came in with fever and chills. A CAT scan showed worsening of hydro on the right bilateral renal pelvic stones. She also had some dysuria and malodorous urine. PAST MEDICAL HISTORY: Significant for diabetes mellitus type 2, Crohn's, depression, she has had a prior cholecystectomy, gastric bypass and tubal ligation. SOCIAL HISTORY: She does not smoke or drink. FAMILY HISTORY: Noncontributory. ALLERGIES: SHE IS ALLERGIC TO NAPROXEN AND LATEX. REVIEW OF SYSTEMS: She has some chills, well oriented x3. Normocephalic, sclerae are clear, conjunctivae not injected. No CVA pain. No hepatosplenomegaly, rebound or guarding. No suprapubic tenderness. Skin: No purpura or edema. LABORATORY DATA: Lab work shows white count 2,500, hemoglobin 9.4, creatinine is 0.8. Her potassium is 2.9, the nurses were made aware of this. Her INR is 1.7. A urine culture was done, which came back as showing mixed milana with no predominant growth. Blood cultures have been negative. She was seen by ID and currently is on a single dose of azithromycin that was given and meropenem. A CAT scan was done, which showed the right hydroureteronephrosis with no definite obstructing distal stones, [id number] left hydro. She does have bilateral nonobstructing renal stones at 3 cm on the right and 1.7 on the left. There was some colonic wall thickening, which was diffuse in nature, greatest in the cecum and ascending colon. Also thickening involving multiple small bowel loops. They thought this might be suspicious for enterocolitis. I discussed the case with ID. I also spoke to the patient. I will place bilateral pigtail stents to relieve any possible hydro as the cause of this and treatment for the enterocolitis. Baldemar Horvath MD
--- NOTE | 2017-04-10 16:22 | CP.PCM.PN ---
Subjective - Date & Time of Evaluation Date of Evaluation: 04/10/17 Time of Evaluation: 07:30 - Subjective Subjective: Pt s/e bedside. Feeling better, but still feeling chills. Pt denies any urinary symptoms. No new complaints Objective - Vital Signs/Intake and Output Vital Signs (last 24 hours): Temp Pulse Resp BP Pulse Ox 97.1 F L 77 19 98/51 L 97 04/10/17 12:00 04/10/17 14:00 04/10/17 12:00 04/10/17 12:00 04/10/17 06:00 Intake and Output: 04/10/17 04/10/17 06:59 18:59 Intake Total 1540 Output Total 300 Balance 1240 - Medications Medications: Current Medications Acetaminophen (Tylenol 325mg Tab) 650 mg PO Q4H PRN PRN Reason: Fever >100.4 F Last Admin: 04/10/17 12:33 Dose: 650 mg Gabapentin (Neurontin) 300 mg PO TID [facility] PRN Reason: Protocol Last Admin: 04/10/17 13:58 Dose: 300 mg Meropenem 1g/NS 100mL IVPB (Meropenem 1g/Ns 100ml Ivpb) 1 gm in 100 mls @ 100 mls/hr IVPB Q12 [facility] PRN Reason: Protocol Stop: 04/16/17 10:01 Last Admin: 04/10/17 10:10 Dose: 100 mls/hr Sodium Bicarbonate 150 meq/ (Sodium Chloride) 1,150 mls @ 100 mls/hr IV .[id number] [facility] Last Admin: 04/10/17 05:19 Dose: 100 mls/hr Iron Sucrose 200 mg/ Sodium (Chloride) 110 mls @ 110 mls/hr IVPB DAILY [facility] Stop: 04/13/17 15:01 Insulin Human Lispro (Humalog Low) 0 units SC ACHS [facility] PRN Reason: Protocol Last Admin: 04/10/17 12:33 Dose: 1 units Magnesium Oxide (Mag-Ox) 400 mg PO DAILY [facility] Last Admin: 04/10/17 09:04 Dose: 400 mg Mesalamine (Pentasa) 500 mg PO BID [facility] Last Admin: 04/10/17 09:05 Dose: 500 mg Pantoprazole Sodium (Protonix Ec Tab) 20 mg PO 0600,1600 [facility] Last Admin: 08/07/17 05:14 Dose: 20 mg Potassium Chloride (K-Dur 20 Meq Er Tab) 20 meq PO BRK [facility] Last Admin: 04/10/17 08:09 Dose: 20 meq Potassium Phos/Sodium Phos (Neutra-Phos) 1 pkt PO TID [facility] Last Admin: 04/10/17 13:58 Dose: 1 pkt Sertraline HCl (Zoloft) 100 mg PO DAILY [facility] Last Admin: 04/10/17 09:05 Dose: 100 mg Tamsulosin HCl (Flomax) 0.4 mg PO DAILY [facility] Last Admin: 04/10/17 09:04 Dose: 0.4 mg - Labs Labs: 04/10/17 05:20 04/10/17 13:28 PT 18.4 Seconds (9.9-11.8) H 04/10/17 05:20 INR 1.70 (0.93-1.08) H 04/10/17 05:20 APTT 38.5 Seconds (23.7-30.8) H 04/10/17 05:20 - Constitutional Appears: Non-toxic - Head Exam Head Exam: ATRAUMATIC, NORMAL INSPECTION, NORMOCEPHALIC - Eye Exam Eye Exam: EOMI, Normal appearance, PERRL Pupil Exam: NORMAL ACCOMODATION - ENT Exam ENT Exam: Mucous Membranes Moist, Normal Exam - Neck Exam Neck Exam: Full ROM, Normal Inspection - Respiratory Exam Respiratory Exam: Clear to Ausculation Bilateral, NORMAL BREATHING PATTERN - Cardiovascular Exam Cardiovascular Exam: REGULAR RHYTHM, +S1, +S2 - GI/Abdominal Exam GI & Abdominal Exam: Normal Bowel Sounds - Extremities Exam Extremities Exam: Full ROM, Normal Capillary Refill, Normal Inspection - Back Exam Back Exam: NORMAL INSPECTION - Neurological Exam Neurological Exam: Alert, Awake, CN II-XII Intact, Normal Gait, Oriented x3 - Psychiatric Exam Psychiatric exam: Normal Mood Assessment and Plan - Assessment and Plan (Free Text) Assessment: This is a 71Y F with PMH DM, recurrent UTIs with nephrolithiasis and pyelonephritis, recurrent hypokalemia, Crohn's disease and depression admitted for sepsis secondary to UTI. Plan: Plan: 1. Sepsis, likely 2/2 UTI - Hypotensive yesterday AM with SBP in 80s - 2L bolus of NS given - Will obtain ICU consultation - Continue NS@125 - ID consulted- recs appreciated - Urine culture: negative - Blood culture: negative - Renal U/S showed bilateral hydronephrosis - Urology, Dr. Horvath consulted: will place b/l pigtail stents to relieve any possible hydro - Continue Merrem - Tylenol prn fever 2. Hypokalemia, Hypomagnesia, Hypophophatemia - 04/10: RPT: K: 3.7, M.8, Phos: 1.3 - Neutraphos, Mag and K given - Will repeat K and replace electrolytes as needed - K-dur 20meq and Magox PO daily 3. Unintentional weight loss - Heme consulted - Rule out malignancy: may be an MDS - Will follow up hematology recommendations 4. NIDDM - HgbA1 pending - ISS - Continue BGM ACHS 5. Hx of Crohn's - Continue Mesalamine 6. Hx of Depression - Continue Zoloft GI ppx: Protonix DVT ppx: SCDs Dispo: Awaiting physical therapy evaluation. Case seen, discussed and reviewed with attending Rosalino Lawrence PGY2
[2017-04-10] MEDS ORDERED: Potassium Chloride 40 mEq/30 ml LIQ UD PO ONE (16:27)
[2017-04-10] MEDS ORDERED: Potassium & Sodium Phosphate PO STA (16:31)
[2017-04-10 18:04] LABS: FOLATE 14.1 ng/mL
[2017-04-11] MEDS: Pantoprazole 20 mg EC Tab PO SCH ×2 (06:24→17:57)
[2017-04-11 06:27] LABS: INR 1.62 (0.93-1.08); PARTIAL THROMBOPLASTIN TIME 39.7 Seconds (23.7-30.8); PROTHROMBIN TIME 17.5 Seconds (9.9-11.8)
[2017-04-11 06:45] LABS: BASO # 0.01 K/mm3 (0.0-2.0); BASO % 0.5 % (0.0-3.0); EOS # 0.1 (0.0-0.7); EOS % 4.1 % (1.5-5.0); GRAN # 1.52 (1.4-6.5); GRAN % 69.3 % (50.0-68.0); HEMOGLOBIN 9.2 g/dL (12.0-16.0); LYMPH # 0.3 (1.2-3.4); LYMPH % 15.1 % (22.0-35.0); MEAN CELL VOLUME 94.4 fl (80.0-105.0); MEAN CORPUSCULAR HEMOGLOBIN 30.5 pg (25.0-35.0); MEAN PLATELET VOLUME 10.4 fl (7.0-11.0); MONO # 0.2 (0.1-0.6); PLATELET COUNT 67 10^3/uL (120.0-450.0); RBC 3.02 10^6/uL (3.5-6.1)
[2017-04-11 07:02] LABS: WHITE BLOOD COUNT 2.2 10^3/ul (4.5-11.0)
[2017-04-11 07:04] LABS: MEAN CORPUSCULAR HGB CONC 32.3 g/dl (31.0-37.0)
[2017-04-11 07:07] LABS: ALB/GLOB RATIO 0.7 (1.1-1.8); ALBUMIN 2.2 g/dL (3.0-4.8); ALT/SGPT 30 U/L (7-56); AST/SGOT 27 U/L (15-39); BLOOD UREA NITROGEN 6 mg/dL (7-21); GFR AFRICAN-AMERICAN > 60; GFR NON-AFRICAN AMERICAN > 60; MAGNESIUM 1.7 mg/dL (1.7-2.2)
[2017-04-11 07:24] LABS: CALCIUM 6.2 mg/dL (8.4-10.5)
[2017-04-11] MEDS ORDERED: Propofol 10 mg/ml Inj (20 ML) ONE (08:27)
[2017-04-11] MEDS: Insulin Lispro (humaLOG) LOW Coverage SC SCH ×4 (08:31→21:31)
[2017-04-11] MEDS ORDERED: ePHEDrine 50 mg/ml Inj ONE (08:52)
[2017-04-11] MEDS ORDERED: Morphine 2 mg/ml ISec IVP PRN (09:10)
[2017-04-11] MEDS ORDERED: Potassium Chloride 20 mEq ER Tab PO ONE (09:13)
[2017-04-11] MEDS ORDERED: Calcium Chloride 1000 mg/10 ml Syringe IV ONE (11:16)
[2017-04-11] MEDS ORDERED: Potassium Phosphate 3 mmol/ml Inj IV ONE (11:30)
[2017-04-11] MEDS: Magnesium Oxide 400 mg Tab UD PO SCH (11:36)
[2017-04-11] MEDS: Meropenem 1g/NS 100mL IVPB 1 GM/100 ML PIGGYBACK IVPB SCH ×2 (11:37→21:39)
[2017-04-11] MEDS: Mesalamine ER Cap 500 MG PO SCH ×2 (11:38→17:54)
[2017-04-11] MEDS: Potassium & Sodium Phosphate PO SCH ×3 (11:39→17:54)
[2017-04-11] MEDS ORDERED: Potassium Phosphate 15 MMOLE in Sodium Chloride 0.9% 250 ML IV ONE ×2 (11:45→15:00)
[2017-04-11 12:54] LABS: HEPATITIS B SURFACE AG NEGATIVE (NEGATIVE)
[2017-04-11 12:59] LABS: HEPATITIS A IGM NEGATIVE (NEGATIVE)
[2017-04-11 13:00] LABS: HEPATITIS B CORE AB NEGATIVE (NEGATIVE)
[2017-04-11 13:12] LABS: HEPATITIS C ANTIBODY NEGATIVE (NEGATIVE)
--- NOTE | 2017-04-11 13:33 | CP.PCM.PN ---
Subjective - Date & Time of Evaluation Date of Evaluation: 04/11/17 Time of Evaluation: 06:55 - Subjective Subjective: Pt s/e at bedside. Pt was just given her stent. She is feeling better. No acute complaints. Objective - Vital Signs/Intake and Output Vital Signs (last 24 hours): Temp Pulse Resp BP Pulse Ox 97.8 F 76 19 99/46 L 98 04/11/17 12:00 04/11/17 12:00 04/11/17 12:00 04/11/17 12:00 04/11/17 10:06 Intake and Output: 04/11/17 04/11/17 06:59 18:59 Intake Total 300 Balance 300 - Medications Medications: Current Medications Acetaminophen (Tylenol 325mg Tab) 650 mg PO Q4H PRN PRN Reason: Fever >100.4 F Last Admin: 04/10/17 12:33 Dose: 650 mg Gabapentin (Neurontin) 300 mg PO TID [facility] PRN Reason: Protocol Last Admin: 04/11/17 11:40 Dose: 300 mg Meropenem 1g/NS 100mL IVPB (Meropenem 1g/Ns 100ml Ivpb) 1 gm in 100 mls @ 100 mls/hr IVPB Q12 [facility] PRN Reason: Protocol Stop: 04/16/17 10:01 Last Admin: 04/11/17 11:37 Dose: 100 mls/hr Sodium Bicarbonate 150 meq/ (Sodium Chloride) 1,150 mls @ 100 mls/hr IV .[id number] [facility] Last Admin: 04/11/17 05:10 Dose: 100 mls/hr Iron Sucrose 200 mg/ Sodium (Chloride) 110 mls @ 110 mls/hr IVPB DAILY [facility] Stop: 04/13/17 15:01 Last Admin: 04/11/17 11:37 Dose: 110 mls/hr Potassium Phosphate 15 mmole/ (Sodium Chloride) 255 mls @ 85 mls/hr IV ONCE ONE Stop: 04/11/17 14:44 Last Admin: 04/11/17 12:47 Dose: 85 mls/hr Insulin Human Lispro (Humalog Low) 0 units SC ACHS [facility] PRN Reason: Protocol Last Admin: 04/11/17 12:57 Dose: 2 units Magnesium Oxide (Mag-Ox) 400 mg PO DAILY [facility] Last Admin: 04/11/17 11:36 Dose: 400 mg Mesalamine (Pentasa) 500 mg PO BID [facility] Last Admin: 04/11/17 11:38 Dose: 500 mg Morphine Sulfate (Morphine) 2 mg IVP Q15M PRN PRN Reason: Pain, moderate (4-7) Pantoprazole Sodium (Protonix Ec Tab) 20 mg PO 0600,1600 [facility] Last Admin: 04/11/17 06:24 Dose: 20 mg Phenazopyridine HCl (Pyridium) 200 mg PO TID [facility] Last Admin: 04/11/17 11:36 Dose: 200 mg Potassium Phos/Sodium Phos (Neutra-Phos) 1 pkt PO TID [facility] Last Admin: 04/11/17 11:39 Dose: 1 pkt Sertraline HCl (Zoloft) 100 mg PO DAILY [facility] Last Admin: 04/11/17 11:36 Dose: 100 mg Tamsulosin HCl (Flomax) 0.4 mg PO DAILY [facility] Last Admin: 04/11/17 11:38 Dose: 0.4 mg - Labs Labs: 04/11/17 05:45 04/11/17 05:45 PT 17.5 Seconds (9.9-11.8) H 04/11/17 05:45 INR 1.62 (0.93-1.08) H 04/11/17 05:45 APTT 39.7 Seconds (23.7-30.8) H 04/11/17 05:45 - Additional Findings Additional findings: VS as below Constitutional: a&o x 4, nad Head and Neck: neck supple, no jvd, trachea midline, carotid midline, no cervical/head mass Eyes: varun, nonicteric sclera, eom intact ENT: auditory acuity grossly intact, throat not congested, no nasal deformity Cardio: rrr, no m/r/g, no carotid bruit, nml s1, s2 Pulm: no accessory muscle use, equal nml breath sounds bilaterally, ctab Abd: s/nt/nd, nbs x 4 q, no palpable masses Derm: no rashes, no ulcers, no lesions Extr: no edema, no cyanosis, no calf tenderness, no lesions, no varicosities Neuro: cn II-XII grossly intact, ue and le 5/5 muscle strength bilaterally, no los ue, le bilaterally and core Assessment and Plan - Assessment and Plan (Free Text) Assessment: This is a 71Y F with PMH DM, recurrent UTIs with nephrolithiasis and pyelonephritis, recurrent hypokalemia, Crohn's disease and depression admitted for sepsis secondary to UTI. Plan: 1. Sepsis, likely 2/2 UTI - Continue NS@125 - ID consulted- recs appreciated - Urine culture: negative - Blood culture: negative - Renal U/S showed bilateral hydronephrosis - Urology, Dr. Horvath consulted: placed b/l pigtail stents to relieve possible hydronephrosis (04/11/17) - Continue Merrem - Tylenol prn fever 2. Hypokalemia, Hypomagnesia, Hypophophatemia - 04/11: K: 3.2, M.8, Phos: 1.3 - Neutraphos, Mag and K given - Will repeat K and replace electrolytes as needed - K-dur 20meq and Magox PO daily 3. Unintentional weight loss - Heme consulted - Rule out malignancy: may be an MDS - Will follow up hematology recommendations: Want to rpt BM Bx 4. NIDDM - HgbA1 pending - ISS - Continue BGM ACHS 5. Hx of Crohn's - Continue Mesalamine 6. Hx of Depression - Continue Zoloft GI ppx: Protonix DVT ppx: SCDs Dispo: Awaiting physical therapy evaluation. They have not yet seen her 2/2 wbc count Case seen, discussed and reviewed with attending Rosalino Lawrence PGY2
--- NOTE | 2017-04-11 14:12 | RAD ---
PROCEDURE: Abdomen multiple views HISTORY: are renal stones visible? COMPARISON: TECHNIQUE: Three views FINDINGS: Bilateral ureteral stents are seen. There is a large stone in the right renal pelvis measuring 27 x 38 mm. Numerous stones are seen in the periphery of the right kidney within the pigtail portion of the left ureteral stent proximally. There is a 17 mm stone in the lower pole. IMPRESSION: Nephrolithiasis
[2017-04-11 14:20] LABS: ALB/GLOB RATIO 0.8 (1.1-1.8); ALBUMIN 2.4 g/dL (3.0-4.8); ALT/SGPT 30 U/L (7-56); AST/SGOT 28 U/L (15-39); BLOOD UREA NITROGEN 6 mg/dL (7-21); CALCIUM 7.5 mg/dL (8.4-10.5); GFR AFRICAN-AMERICAN > 60; GFR NON-AFRICAN AMERICAN > 60; MAGNESIUM 1.7 mg/dL (1.7-2.2)
--- NOTE | 2017-04-11 14:25 | RAD ---
PROCEDURE: Retrograde pyelogram HISTORY: R/O STONES BILATERAL COMPARISON: TECHNIQUE: Fluoroscopy was provided in the operating room. 30 seconds of fluoroscopy time. One image was submitted FINDINGS: The image shows the proximal half of a left-sided ureteral stent. Stones are seen in the periphery of the left kidney IMPRESSION: As above
[2017-04-11] MEDS ORDERED: Potassium Phosphate 3 mmol/ml Inj IV STA (14:40)
--- NOTE | 2017-04-11 14:45 | OP ---
PROCEDURE DATE: 04/11/2017 PREOPERATIVE DIAGNOSES: Bilateral hydronephrosis and bilateral nephrolithiasis. POSTOPERATIVE DIAGNOSES: Bilateral hydronephrosis and bilateral nephrolithiasis. PROCEDURE: Cystoscopy with bilateral insertion of pigtail stent. SURGEON: Dr. Horvath. TYPE OF ANESTHESIA: LMA. DESCRIPTION OF OPERATION: After adequate LMA anesthesia was given, the patient was placed in lithotomy, prepped and draped in the usual manner. A 22-Turkish cystourethroscope was introduced. The urine in the bladder was somewhat cloudy. Urine was obtain for C&S. The bladder was irrigated until there was good clarity of vision. Orifices seen. There was some turbid efflux. No tumors or foreign bodies or stones in the bladder. A 0.35 sensor wire was advanced up the right ureter under fluoroscopic guidance. Over this, a 6-Turkish 24 cm pigtail stent was placed and properly placed and the sensor wire was removed in the right renal pelvis and in the bladder. An identical procedure was done in the left side as well with good placement of the pigtail stent. The bladder was drained. The cystoscope was removed. The patient was awakened and brought to the recovery room in good condition. Baldemar Horvath MD
[2017-04-11] MEDS: Potassium Chloride 40 mEq/30 ml LIQ UD PO SCH (20:15)
--- NOTE | 2017-04-11 23:35 | CARD ---
APPROVED REPORT EKG Measurement Heart [id number] CO 170P12 [id number] <Conclusion> Normal sinus rhythm Normal ECG
[2017-04-12] MEDS: Potassium Chloride 40 mEq/30 ml LIQ UD PO SCH ×6 (01:31→20:21)
[2017-04-12] MEDS: Pantoprazole 20 mg EC Tab PO SCH ×2 (05:22→17:25)
[2017-04-12 05:49] LABS: HEMOGLOBIN 9.6 g/dL (12.0-16.0); MEAN CELL VOLUME 95.9 fl (80.0-105.0); MEAN CORPUSCULAR HEMOGLOBIN 30.3 pg (25.0-35.0); MEAN CORPUSCULAR HGB CONC 31.6 g/dl (31.0-37.0); MEAN PLATELET VOLUME 10.3 fl (7.0-11.0); RBC 3.17 10^6/uL (3.5-6.1); RED CELL DISTRIBUTION WIDTH 15.9 % (11.5-14.5)
[2017-04-12 05:53] LABS: INR 1.51 (0.93-1.08); PARTIAL THROMBOPLASTIN TIME 41.4 Seconds (23.7-30.8); PROTHROMBIN TIME 16.3 Seconds (9.9-11.8)
[2017-04-12 06:01] LABS: ALB/GLOB RATIO 0.8 (1.1-1.8); ALBUMIN 2.3 g/dL (3.0-4.8); ALT/SGPT 30 U/L (7-56); AST/SGOT 27 U/L (15-39); BLOOD UREA NITROGEN 7 mg/dL (7-21); GFR AFRICAN-AMERICAN > 60; GFR NON-AFRICAN AMERICAN > 60; MAGNESIUM 1.7 mg/dL (1.7-2.2)
[2017-04-12 06:05] LABS: WHITE BLOOD COUNT 2.5 10^3/ul (4.5-11.0)
[2017-04-12 06:06] LABS: CALCIUM 6.8 mg/dL (8.4-10.5)
[2017-04-12] MEDS: Insulin Lispro (humaLOG) LOW Coverage SC SCH ×4 (07:45→22:48)
[2017-04-12] MEDS: Magnesium Oxide 400 mg Tab UD PO SCH (09:42)
[2017-04-12] MEDS: Meropenem 1g/NS 100mL IVPB 1 GM/100 ML PIGGYBACK IVPB SCH ×2 (09:42→22:48)
[2017-04-12] MEDS: Potassium & Sodium Phosphate PO SCH ×3 (09:43→17:24)
[2017-04-12] MEDS: Mesalamine ER Cap 500 MG PO SCH ×2 (09:43→17:25)
[2017-04-12] MEDS: Lactobacillus Acidophilus 500 MU Cap PO SCH ×3 (12:17→17:24)
--- NOTE | 2017-04-12 14:38 | CP.PCM.PN ---
Subjective - Date & Time of Evaluation Date of Evaluation: 04/12/17 Time of Evaluation: 07:35 - Subjective Subjective: Pt s/e at bedside. She is feeling better, however, pt may have C. Diff Colitis - has been placed on contact precautions and Flagyl. No acute complaints. Objective - Vital Signs/Intake and Output Vital Signs (last 24 hours): Temp Pulse Resp BP Pulse Ox 97.1 F L 76 19 90/49 L 98 04/12/17 12:00 04/12/17 12:00 04/12/17 12:00 04/12/17 12:00 04/12/17 06:00 Intake and Output: 04/12/17 04/12/17 06:59 18:59 Intake Total 2700 Balance 2700 - Medications Medications: Current Medications Acetaminophen (Tylenol 325mg Tab) 650 mg PO Q4H PRN PRN Reason: Fever >100.4 F Last Admin: 04/10/17 12:33 Dose: 650 mg Ascorbic Acid (Vitamin C 500 Mg Tab) 500 mg PO DAILY [facility] Last Admin: 04/12/17 09:44 Dose: 500 mg Gabapentin (Neurontin) 300 mg PO TID [facility] PRN Reason: Protocol Last Admin: 04/12/17 13:27 Dose: 300 mg Meropenem 1g/NS 100mL IVPB (Meropenem 1g/Ns 100ml Ivpb) 1 gm in 100 mls @ 100 mls/hr IVPB Q12 [facility] PRN Reason: Protocol Stop: 04/16/17 10:01 Last Admin: 04/12/17 09:42 Dose: 100 mls/hr Sodium Bicarbonate 150 meq/ (Sodium Chloride) 1,150 mls @ 100 mls/hr IV .[id number] [facility] Last Admin: 04/12/17 12:19 Dose: 100 mls/hr Iron Sucrose 200 mg/ Sodium (Chloride) 110 mls @ 110 mls/hr IVPB DAILY [facility] Stop: 04/13/17 15:01 Last Admin: 04/12/17 09:43 Dose: 110 mls/hr Insulin Human Lispro (Humalog Low) 0 units SC ACHS [facility] PRN Reason: Protocol Last Admin: 04/12/17 12:17 Dose: 1 units Lactobacillus Acidophilus (Bacid Acidophilus) 1 cap PO TID [facility] Last Admin: 04/12/17 13:24 Dose: Not Given Magnesium Oxide (Mag-Ox) 400 mg PO DAILY [facility] Last Admin: 04/12/17 09:42 Dose: 400 mg Mesalamine (Pentasa) 500 mg PO BID [facility] Last Admin: 04/12/17 09:43 Dose: 500 mg Metronidazole (Flagyl) 500 mg PO Q8 [facility] PRN Reason: Protocol Last Admin: 04/12/17 13:24 Dose: Not Given Pantoprazole Sodium (Protonix Ec Tab) 20 mg PO 0600,1600 [facility] Last Admin: 04/12/17 05:22 Dose: 20 mg Phenazopyridine HCl (Pyridium) 200 mg PO TID [facility] Last Admin: 04/12/17 13:30 Dose: 200 mg Potassium Chloride (Potassium Chloride Oral Soln) 40 meq PO Q4 [facility] Last Admin: 04/12/17 12:19 Dose: 40 meq Potassium Phos/Sodium Phos (Neutra-Phos) 1 pkt PO TID [facility] Last Admin: 04/12/17 13:27 Dose: 1 pkt Sertraline HCl (Zoloft) 100 mg PO DAILY [facility] Last Admin: 04/12/17 09:44 Dose: 100 mg Tamsulosin HCl (Flomax) 0.4 mg PO DAILY [facility] Last Admin: 04/12/17 09:42 Dose: 0.4 mg Thiamine HCl (Vitamin B1 Tab) 100 mg PO DAILY [facility] Last Admin: 04/12/17 09:44 Dose: 100 mg - Labs Labs: 04/12/17 05:20 04/12/17 05:20 PT 16.3 Seconds (9.9-11.8) H 04/12/17 05:20 INR 1.51 (0.93-1.08) H 04/12/17 05:20 APTT 41.4 Seconds (23.7-30.8) H 04/12/17 05:20 - Additional Findings Additional findings: VS as below Constitutional: a&o x 4, nad Head and Neck: neck supple, no jvd, trachea midline, carotid midline, no cervical/head mass Eyes: varun, nonicteric sclera, eom intact ENT: auditory acuity grossly intact, throat not congested, no nasal deformity Cardio: rrr, no m/r/g, no carotid bruit, nml s1, s2 Pulm: no accessory muscle use, equal nml breath sounds bilaterally, ctab Abd: s/nt/nd, nbs x 4 q, no palpable masses Derm: no rashes, no ulcers, no lesions Extr: no edema, no cyanosis, no calf tenderness, no lesions, no varicosities Neuro: cn II-XII grossly intact, ue and le 5/5 muscle strength bilaterally, no los ue, le bilaterally and core Assessment and Plan - Assessment and Plan (Free Text) Assessment: This is a 71Y F with PMH DM, recurrent UTIs with nephrolithiasis and pyelonephritis, recurrent hypokalemia, Crohn's disease and depression admitted for sepsis secondary to UTI. Plan: 1. Sepsis, likely 2/2 UTI - Continue NS@125 - ID consulted- recs appreciated - Urine culture: negative - Blood culture: negative - Renal U/S showed bilateral hydronephrosis - Urology, Dr. Horvath consulted: placed b/l pigtail stents to relieve possible hydronephrosis (04/11/17) - Continue Merrem - Tylenol prn fever 2. Hypokalemia, Hypomagnesia, Hypophophatemia - 04/11: K: 3.2, M.8, Phos: 1.3 - Neutraphos, Mag and K given - Will repeat K and replace electrolytes as needed - K-dur 20meq and Magox PO daily 3. Unintentional weight loss - Heme consulted - Rule out malignancy: may be an MDS - Will follow up hematology recommendations: Want to rpt BM Bx 4. Enterocolitis found on CT - Patient most likely has C. Diff Colitis - f/u stool c. diff. - Contact precautions - Flagyl initiated - GI c/s: Zelinski 5. NIDDM - HgbA1 pending - ISS - Continue BGM ACHS 6. Hx of Crohn's - Continue Mesalamine 7. Hx of Depression - Continue Zoloft GI ppx: Protonix DVT ppx: SCDs Dispo: Awaiting physical therapy evaluation. They have not yet seen her 2/2 wbc count Case seen, discussed and reviewed with attending
--- NOTE | 2017-04-12 14:45 | CP.PCM.PN ---
Subjective - Date & Time of Evaluation Date of Evaluation: 04/12/17 Time of Evaluation: 09:00 - Subjective Subjective: Comfortable, not in distress, afebrile, had pigtail catheters placed yesterday. Objective - Vital Signs/Intake and Output Vital Signs (last 24 hours): Temp Pulse Resp BP Pulse Ox 98.1 F 72 18 100/50 L 98 04/12/17 01:00 04/12/17 01:00 04/12/17 01:00 04/12/17 01:00 04/11/17 10:06 - Medications Medications: Current Medications Acetaminophen (Tylenol 325mg Tab) 650 mg PO Q4H PRN PRN Reason: Fever >100.4 F Last Admin: 04/10/17 12:33 Dose: 650 mg Gabapentin (Neurontin) 300 mg PO TID [facility] PRN Reason: Protocol Last Admin: 04/11/17 17:57 Dose: 300 mg Meropenem 1g/NS 100mL IVPB (Meropenem 1g/Ns 100ml Ivpb) 1 gm in 100 mls @ 100 mls/hr IVPB Q12 [facility] PRN Reason: Protocol Stop: 04/16/17 10:01 Last Admin: 04/11/17 21:39 Dose: 100 mls/hr Sodium Bicarbonate 150 meq/ (Sodium Chloride) 1,150 mls @ 100 mls/hr IV .[id number] [facility] Last Admin: 04/12/17 01:12 Dose: 100 mls/hr Iron Sucrose 200 mg/ Sodium (Chloride) 110 mls @ 110 mls/hr IVPB DAILY [facility] Stop: 04/13/17 15:01 Last Admin: 04/11/17 11:37 Dose: 110 mls/hr Insulin Human Lispro (Humalog Low) 0 units SC ACHS [facility] PRN Reason: Protocol Last Admin: 04/11/17 21:31 Dose: Not Given Magnesium Oxide (Mag-Ox) 400 mg PO DAILY [facility] Last Admin: 04/11/17 11:36 Dose: 400 mg Mesalamine (Pentasa) 500 mg PO BID [facility] Last Admin: 04/11/17 17:54 Dose: 500 mg Pantoprazole Sodium (Protonix Ec Tab) 20 mg PO 0600,1600 [facility] Last Admin: 04/12/17 05:22 Dose: 20 mg Phenazopyridine HCl (Pyridium) 200 mg PO TID [facility] Last Admin: 04/11/17 17:54 Dose: 200 mg Potassium Chloride (Potassium Chloride Oral Soln) 40 meq PO Q4 [facility] Last Admin: 04/12/17 05:22 Dose: 40 meq Potassium Phos/Sodium Phos (Neutra-Phos) 1 pkt PO TID [facility] Last Admin: 04/11/17 17:54 Dose: 1 pkt Sertraline HCl (Zoloft) 100 mg PO DAILY [facility] Last Admin: 04/11/17 11:36 Dose: 100 mg Tamsulosin HCl (Flomax) 0.4 mg PO DAILY [facility] Last Admin: 04/11/17 11:38 Dose: 0.4 mg - Labs Labs: 04/12/17 05:20 04/12/17 05:20 PT 16.3 Seconds (9.9-11.8) H 04/12/17 05:20 INR 1.51 (0.93-1.08) H 04/12/17 05:20 APTT 41.4 Seconds (23.7-30.8) H 04/12/17 05:20 - Constitutional Appears: Non-toxic, No Acute Distress - Head Exam Head Exam: NORMAL INSPECTION - ENT Exam ENT Exam: Mucous Membranes Moist - Neck Exam Neck Exam: absent: Lymphadenopathy, Meningismus - Cardiovascular Exam Cardiovascular Exam: +S1, +S2 - GI/Abdominal Exam GI & Abdominal Exam: Soft. absent: Tenderness Assessment and Plan - Assessment and Plan (Free Text) Plan: Assessment severe sepsis with hypotensive episodes probably due to urinary tract infection in a patient with a history of nephrolithiasis S/P pigtail catheter placement history of right sided pyelonephritis associated with nephrolithiasis with E. faecalis Crohn's disease DM history of pyelonephritis bilateral nephrolithiasis S/P cholecystectomy S/P tubal ligation Plan continue Merrem (day 4, total day 5 of antibiotics) and we have given a dose of IV amikacin; urine cx showing 2 organisms and the lab is unable to identify the organisms; CT A/P showing bilateral hydronephrosis - discussed with Dr. Horvath and the patient underwent pigtail catheter placement - should plan on 10-14 days of antibiotics will continue to monitor clinically
[2017-04-12 16:00] LABS: ALB/GLOB RATIO 0.8 (1.1-1.8); ALBUMIN 2.4 g/dL (3.0-4.8); ALT/SGPT 33 U/L (7-56); AST/SGOT 42 U/L (15-39); BLOOD UREA NITROGEN 7 mg/dL (7-21); GFR AFRICAN-AMERICAN > 60; GFR NON-AFRICAN AMERICAN > 60; MAGNESIUM 1.7 mg/dL (1.7-2.2)
[2017-04-12 16:02] LABS: CALCIUM 6.6 mg/dL (8.4-10.5)
[2017-04-12 22:53] LABS: ALB/GLOB RATIO 0.8 (1.1-1.8); ALBUMIN 2.3 g/dL (3.0-4.8); ALT/SGPT 30 U/L (7-56); AST/SGOT 35 U/L (15-39); BLOOD UREA NITROGEN 7 mg/dL (7-21); GFR AFRICAN-AMERICAN > 60; GFR NON-AFRICAN AMERICAN > 60; MAGNESIUM 1.7 mg/dL (1.7-2.2)
[2017-04-12 23:01] LABS: CALCIUM 6.5 mg/dL (8.4-10.5)
[2017-04-13] MEDS: Potassium Chloride 40 mEq/30 ml LIQ UD PO SCH ×6 (00:51→22:12)
[2017-04-13] MEDS: Pantoprazole 20 mg EC Tab PO SCH ×2 (05:03→17:17)
[2017-04-13] MEDS ORDERED: Sodium Chloride 0.9% 1,000 ML IV STA (06:40)
[2017-04-13 06:44] LABS: HEMOGLOBIN 9.2 g/dL (12.0-16.0); MEAN CORPUSCULAR HEMOGLOBIN 30.3 pg (25.0-35.0); MEAN CORPUSCULAR HGB CONC 31.2 g/dl (31.0-37.0); MEAN PLATELET VOLUME 10.3 fl (7.0-11.0); RBC 3.04 10^6/uL (3.5-6.1); RED CELL DISTRIBUTION WIDTH 15.9 % (11.5-14.5)
[2017-04-13] MEDS ORDERED: Albumin Human 25% (12.5 gm/50 ml) IV ONE (06:44)
[2017-04-13 06:51] LABS: ALBUMIN 2.2 g/dL (3.0-4.8); ALT/SGPT 28 U/L (7-56); AST/SGOT 30 U/L (15-39); BLOOD UREA NITROGEN 6 mg/dL (7-21); GFR AFRICAN-AMERICAN > 60; GFR NON-AFRICAN AMERICAN > 60; MAGNESIUM 1.7 mg/dL (1.7-2.2)
[2017-04-13 07:05] LABS: WHITE BLOOD COUNT 2.4 10^3/ul (4.5-11.0)
[2017-04-13 07:07] LABS: ALB/GLOB RATIO 0.8 (1.1-1.8)
[2017-04-13 07:09] LABS: CALCIUM 6.5 mg/dL (8.4-10.5)
[2017-04-13] MEDS: Insulin Lispro (humaLOG) LOW Coverage SC SCH ×4 (08:21→22:13)
[2017-04-13] MEDS: Meropenem 1g/NS 100mL IVPB 1 GM/100 ML PIGGYBACK IVPB SCH ×2 (09:56→22:12)
[2017-04-13] MEDS: Lactobacillus Acidophilus 500 MU Cap PO SCH ×3 (10:00→18:48)
[2017-04-13] MEDS: Potassium & Sodium Phosphate PO SCH ×3 (10:00→18:48)
[2017-04-13] MEDS ORDERED: Potassium & Sodium Phosphate PO SCH (10:00)
[2017-04-13] MEDS: Magnesium Oxide 400 mg Tab UD PO SCH (10:00)
[2017-04-13] MEDS: Mesalamine ER Cap 500 MG PO SCH ×2 (10:00→18:48)
--- NOTE | 2017-04-13 17:36 | CP.PCM.PN ---
Subjective - Date & Time of Evaluation Date of Evaluation: 04/13/17 Time of Evaluation: 09:25 - Subjective Subjective: Comfortable in bed, not in distress, afebrile. Feeling better. Had an episode of watery BM yesterday and loose bowel movements prior to that. Objective - Vital Signs/Intake and Output Vital Signs (last 24 hours): Temp Pulse Resp BP Pulse Ox 98.2 F 73 20 96/54 L 98 04/13/17 00:01 04/13/17 06:00 04/13/17 00:01 04/13/17 00:01 04/12/17 06:00 - Medications Medications: Current Medications Acetaminophen (Tylenol 325mg Tab) 650 mg PO Q4H PRN PRN Reason: Fever >100.4 F Last Admin: 04/10/17 12:33 Dose: 650 mg Ascorbic Acid (Vitamin C 500 Mg Tab) 500 mg PO DAILY [facility] Last Admin: 04/12/17 09:44 Dose: 500 mg Calcium Carbonate (Caltrate) 600 mg PO DAILY [facility] Last Admin: 04/13/17 01:19 Dose: 600 mg Diphenhydramine HCl (Benadryl) 25 mg PO HS PRN PRN Reason: Insomnia Last Admin: 04/13/17 02:05 Dose: 25 mg Gabapentin (Neurontin) 300 mg PO TID [facility] PRN Reason: Protocol Last Admin: 04/12/17 17:24 Dose: 300 mg Meropenem 1g/NS 100mL IVPB (Meropenem 1g/Ns 100ml Ivpb) 1 gm in 100 mls @ 100 mls/hr IVPB Q12 [facility] PRN Reason: Protocol Stop: 04/16/17 10:01 Last Admin: 04/12/17 22:48 Dose: 100 mls/hr Sodium Bicarbonate 150 meq/ (Sodium Chloride) 1,150 mls @ 100 mls/hr IV .[id number] [facility] Last Admin: 04/13/17 04:53 Dose: 100 mls/hr Iron Sucrose 200 mg/ Sodium (Chloride) 110 mls @ 110 mls/hr IVPB DAILY [facility] Stop: 04/13/17 15:01 Last Admin: 04/12/17 09:43 Dose: 110 mls/hr Insulin Human Lispro (Humalog Low) 0 units SC ACHS [facility] PRN Reason: Protocol Last Admin: 04/12/17 22:48 Dose: 2 units Lactobacillus Acidophilus (Bacid Acidophilus) 1 cap PO TID [facility] Last Admin: 04/12/17 17:24 Dose: 1 cap Magnesium Oxide (Mag-Ox) 400 mg PO DAILY [facility] Last Admin: 04/12/17 09:42 Dose: 400 mg Mesalamine (Pentasa) 2,000 mg PO BID [facility] Stop: 04/17/17 23:59 Metronidazole (Flagyl) 500 mg PO Q8 [facility] PRN Reason: Protocol Last Admin: 04/13/17 05:02 Dose: 500 mg Pantoprazole Sodium (Protonix Ec Tab) 20 mg PO 0600,1600 [facility] Last Admin: 04/13/17 05:03 Dose: 20 mg Phenazopyridine HCl (Pyridium) 200 mg PO TID [facility] Last Admin: 04/12/17 17:25 Dose: 200 mg Potassium Chloride (Potassium Chloride Oral Soln) 40 meq PO Q4 [facility] Last Admin: 04/13/17 04:52 Dose: 40 meq Potassium Phos/Sodium Phos (Neutra-Phos) 1 pkt PO TID [facility] Last Admin: 04/12/17 17:24 Dose: 1 pkt Sertraline HCl (Zoloft) 100 mg PO DAILY [facility] Last Admin: 04/12/17 09:44 Dose: 100 mg Tamsulosin HCl (Flomax) 0.4 mg PO DAILY [facility] Last Admin: 04/12/17 09:42 Dose: 0.4 mg Thiamine HCl (Vitamin B1 Tab) 100 mg PO DAILY [facility] Last Admin: 04/12/17 09:44 Dose: 100 mg - Labs Labs: 04/12/17 05:20 04/12/17 22:35 PT 16.3 Seconds (9.9-11.8) H 04/12/17 05:20 INR 1.51 (0.93-1.08) H 04/12/17 05:20 APTT 41.4 Seconds (23.7-30.8) H 04/12/17 05:20 - Constitutional Appears: Non-toxic, No Acute Distress - Head Exam Head Exam: NORMAL INSPECTION - Neck Exam Neck Exam: absent: Meningismus - Respiratory Exam Respiratory Exam: Decreased Breath Sounds - Cardiovascular Exam Cardiovascular Exam: +S1, +S2 - GI/Abdominal Exam GI & Abdominal Exam: Soft. absent: Tenderness Assessment and Plan - Assessment and Plan (Free Text) Plan: Assessment severe sepsis with hypotensive episodes probably due to urinary tract infection in a patient with a history of nephrolithiasis S/P pigtail catheter placement Diarrhea, R/O C. diff. infection history of right sided pyelonephritis associated with nephrolithiasis with E. faecalis Crohn's disease DM history of pyelonephritis bilateral nephrolithiasis S/P cholecystectomy S/P tubal ligation Plan continue Merrem (day 5, total day 6 of antibiotics); urine cx showing 2 organisms and the lab is unable to identify the organisms; CT A/P showing bilateral hydronephrosis - she is S/P pigtail catheter placement - should plan on 10-14 days of antibiotics follow up stool for C. diff. will continue to monitor clinically
--- NOTE | 2017-04-13 17:57 | CP.PCM.PN ---
Subjective - Date & Time of Evaluation Date of Evaluation: 04/13/17 Time of Evaluation: 07:30 - Subjective Subjective: Pt s/e at bedside. She is feeling better, however, pt may have C. Diff Colitis - has been placed on contact precautions and Flagyl. First C. Diff was negative , repeated test. Her GI doctor, Dr. Chadwick, saw her today, and placed her on a soft diet to relieve her diarrhea. No acute complaints. Objective - Vital Signs/Intake and Output Vital Signs (last 24 hours): Temp Pulse Resp BP Pulse Ox 98.3 F 74 20 112/53 L 96 04/13/17 12:00 04/13/17 12:00 04/13/17 12:00 04/13/17 12:00 04/13/17 06:00 Intake and Output: 04/13/17 04/13/17 06:59 18:59 Intake Total 580 Balance 580 - Medications Medications: Current Medications Acetaminophen (Tylenol 325mg Tab) 650 mg PO Q4H PRN PRN Reason: Fever >100.4 F Last Admin: 04/10/17 12:33 Dose: 650 mg Ascorbic Acid (Vitamin C 500 Mg Tab) 500 mg PO DAILY [facility] Last Admin: 04/13/17 10:01 Dose: 500 mg Calcium Carbonate (Caltrate) 600 mg PO QID [facility] Last Admin: 04/13/17 14:57 Dose: 600 mg Diphenhydramine HCl (Benadryl) 25 mg PO HS PRN PRN Reason: Insomnia Last Admin: 04/13/17 02:05 Dose: 25 mg Gabapentin (Neurontin) 300 mg PO TID [facility] PRN Reason: Protocol Last Admin: 04/13/17 14:57 Dose: 300 mg Meropenem 1g/NS 100mL IVPB (Meropenem 1g/Ns 100ml Ivpb) 1 gm in 100 mls @ 100 mls/hr IVPB Q12 [facility] PRN Reason: Protocol Stop: 04/16/17 10:01 Last Admin: 04/13/17 09:56 Dose: 100 mls/hr Sodium Bicarbonate 150 meq/ (Sodium Chloride) 1,150 mls @ 100 mls/hr IV .[id number] [facility] Last Admin: 04/13/17 04:53 Dose: 100 mls/hr Insulin Human Lispro (Humalog Low) 0 units SC ACHS [facility] PRN Reason: Protocol Last Admin: 04/13/17 17:24 Dose: Not Given Lactobacillus Acidophilus (Bacid Acidophilus) 1 cap PO TID [facility] Last Admin: 04/13/17 14:57 Dose: 1 cap Magnesium Oxide (Mag-Ox) 400 mg PO DAILY [facility] Last Admin: 04/13/17 10:00 Dose: 400 mg Mesalamine (Pentasa) 2,000 mg PO BID [facility] Stop: 04/17/17 23:59 Last Admin: 04/13/17 10:00 Dose: 2,000 mg Metronidazole (Flagyl) 500 mg PO Q8 [facility] PRN Reason: Protocol Last Admin: 04/13/17 14:57 Dose: 500 mg Pantoprazole Sodium (Protonix Ec Tab) 20 mg PO 0600,1600 [facility] Last Admin: 04/13/17 17:17 Dose: 20 mg Phenazopyridine HCl (Pyridium) 200 mg PO TID [facility] Last Admin: 04/13/17 14:57 Dose: 200 mg Potassium Chloride (Potassium Chloride Oral Soln) 40 meq PO Q4 [facility] Last Admin: 04/13/17 17:17 Dose: 40 meq Potassium Phos/Sodium Phos (Neutra-Phos) 1 pkt PO TID [facility] Last Admin: 04/13/17 14:57 Dose: 1 pkt Sertraline HCl (Zoloft) 100 mg PO DAILY [facility] Last Admin: 04/13/17 10:00 Dose: 100 mg Tamsulosin HCl (Flomax) 0.4 mg PO DAILY [facility] Last Admin: 04/13/17 10:00 Dose: 0.4 mg Thiamine HCl (Vitamin B1 Tab) 100 mg PO DAILY [facility] Last Admin: 04/13/17 10:01 Dose: 100 mg - Labs Labs: 04/13/17 04:45 04/13/17 04:45 PT 16.3 Seconds (9.9-11.8) H 04/12/17 05:20 INR 1.51 (0.93-1.08) H 04/12/17 05:20 APTT 41.4 Seconds (23.7-30.8) H 04/12/17 05:20 - Additional Findings Additional findings: VS as below Constitutional: a&o x 4, nad Head and Neck: neck supple, no jvd, trachea midline, carotid midline, no cervical/head mass Eyes: varun, nonicteric sclera, eom intact ENT: auditory acuity grossly intact, throat not congested, no nasal deformity Cardio: rrr, no m/r/g, no carotid bruit, nml s1, s2 Pulm: no accessory muscle use, equal nml breath sounds bilaterally, ctab Abd: s/nt/nd, nbs x 4 q, no palpable masses Derm: no rashes, no ulcers, no lesions Extr: no edema, no cyanosis, no calf tenderness, no lesions, no varicosities Neuro: cn II-XII grossly intact, ue and le 5/5 muscle strength bilaterally, no los ue, le bilaterally and core Assessment and Plan - Assessment and Plan (Free Text) Assessment: This is a 71Y F with PMH DM, recurrent UTIs with nephrolithiasis and pyelonephritis, recurrent hypokalemia, Crohn's disease and depression admitted for sepsis secondary to UTI. Plan: 1. Sepsis, likely 2/2 UTI - Continue NS@125 - ID consulted- recs appreciated - Urine culture: negative - Blood culture: negative - Renal U/S showed bilateral hydronephrosis - Urology, Dr. Horvath consulted: placed b/l pigtail stents to relieve possible hydronephrosis (04/11/17) - Continue Merrem - Tylenol prn fever 2. Hypokalemia, Hypomagnesia, Hypophophatemia - 04/11: K: 3.2, M.8, Phos: 1.3 - Neutraphos, Mag and K given - Will repeat K and replace electrolytes as needed - K-dur 20meq and Magox PO daily 3. Unintentional weight loss - Heme consulted - Rule out malignancy: may be an MDS - Will follow up hematology recommendations: Want to rpt BM Bx 4. Watery Diarrhea - Patient most likely has C. Diff Colitis - f/u stool c. diff. - Contact precautions - Flagyl initiated - GI c/s: Zelinski 5. NIDDM - HgbA1 pending - ISS - Continue BGM ACHS 6. Hx of Crohn's - Continue Mesalamine 7. Hx of Depression - Continue Zoloft GI ppx: Protonix DVT ppx: SCDs Dispo: Awaiting physical therapy evaluation. They have not yet seen her 2/2 wbc count Case seen, discussed and reviewed with attending
--- NOTE | 2017-04-13 19:23 | CON ---
DATE: 04/13/2017 HISTORY OF PRESENT ILLNESS: I examined the patient this morning. 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 She reported also transient temperatures at home with chills and night sweats. Urine was regular. She denied any abdominal pain, severe diarrhea at that time point. Abdominopelvic CT scan performed on 04/09/2017 revealed the findings of colonic wall thickening, especially cecum and ascending colon, and wall thickening of small bowel loops. Also noted moderate abdominal pelvic free fluid with bilateral pleural effusions and anasarca. Of note, she had bilateral hydroureteronephrosis with extensive renal stones. The patient was subsequently seen by Dr. Horvath and the abdominal x-ray and retrograde were evaluated. The operative note dictated for procedure 04/11/2017 indicated bilateral hydronephrosis with bilateral nephrolithiasis; performed a cystoscopy with a bilateral insertion of the pigtail stents. I reviewed Dr. Mckenna's note from yesterday, which indicated that he had discussed the case with Dr. Horvath. for this patient's by sepsis with hypotensive episodes, urinary tract infection, the patient is currently on Meropenem and also amikacin. Apparently, the urine culture showed two organisms. Fourteen days of antibiotics planned. Consult was called for C. difficile possibilities. Note that the evaluation of C. difficile toxin and antigen are both negative. The patient is currently in isolation on the second floor. Note that review of other cultures are noncontributory at this time point. PHYSICAL EXAMINATION: VITAL SIGNS: I reviewed this patient's vital signs. HEENT: Significant for dry mouth. LUNGS: Decreased breath sounds bilaterally. HEART: Irregular rhythm. ABDOMEN: Soft. No tenderness elicited in the right upper and right lower quadrant. There is some mild tenderness in the periumbilical area as well as in the left lower quadrant suprapubic area. Radiology reports reviewed previously. LABORATORY DATA: Evaluation of laboratory data indicates decrease in white count from 6.3 to a level of 2.5 noted yesterday. Platelet count extremely low in the range of 64. H and H 9.6/30. Reason for this is unclear at the current time point. I think the patient should have consultation with Dr. Wynn for pancytopenia. OVERALL ASSESSMENT: This is a patient with complaints of generalized weakness, high fever, found to have sepsis with hypotensive episodes. Also experiencing symptoms due to bilateral hydronephrosis and nephrolithiasis. She is being followed by Dr. Horvath, who inserted the pigtail stent. Plan as per Urology. The patient now has diarrhea, which apparently according to the microbiology is C. difficile negative. She is currently being seen by Dr. Mckenna and is currently on meropenem and amikacin?. At this particular time point since metronidazole was just initiated, we would check on her progress over the next several days. Since the current diet is a heart healthy diet, we would suggest cutting back to full liquids to decrease stimulus for diarrhea. This would be only a temporary measure since the patient indicates continued rapid transit. The patient has a known history of small and large bowel enterocolitis and she has been on Pentasa for this on the outside. The dose of mesalamine she is on is currently inadequate, dose is written 500 b.i.d. Note that she should be on 2 g b.i.d. of 500 mg tablets. The patient will be followed up by ID, Dr. Browne, as well as Urology, this morning. Alli Jackman DO, PhD [facility]
[2017-04-14] MEDS: Potassium Chloride 40 mEq/30 ml LIQ UD PO SCH ×2 (01:11→05:02)
[2017-04-14 05:59] LABS: BASO # 0.04 K/mm3 (0.0-2.0); BASO % 1.7 % (0.0-3.0); EOS # 0.1 (0.0-0.7); EOS % 5.5 % (1.5-5.0); GRAN # 1.58 (1.4-6.5); GRAN % 66.4 % (50.0-68.0); HEMOGLOBIN 9.3 g/dL (12.0-16.0); LYMPH # 0.4 (1.2-3.4); LYMPH % 15.5 % (22.0-35.0); MEAN CELL VOLUME 98.1 fl (80.0-105.0); MEAN CORPUSCULAR HEMOGLOBIN 30.2 pg (25.0-35.0); MEAN CORPUSCULAR HGB CONC 30.8 g/dl (31.0-37.0); MEAN PLATELET VOLUME 9.6 fl (7.0-11.0); MONO # 0.3 (0.1-0.6); MONO % 10.9 % (1.0-6.0); PLATELET COUNT 74 10^3/uL (120.0-450.0); RBC 3.08 10^6/uL (3.5-6.1); RED CELL DISTRIBUTION WIDTH 15.9 % (11.5-14.5)
[2017-04-14 06:09] LABS: WHITE BLOOD COUNT 2.4 10^3/ul (4.5-11.0)
[2017-04-14 06:17] LABS: ALB/GLOB RATIO 0.7 (1.1-1.8); ALBUMIN 2.3 g/dL (3.0-4.8); ALT/SGPT 35 U/L (7-56); AST/SGOT 35 U/L (15-39); BLOOD UREA NITROGEN 4 mg/dL (7-21); GFR AFRICAN-AMERICAN > 60; GFR NON-AFRICAN AMERICAN > 60; MAGNESIUM 1.8 mg/dL (1.7-2.2)
[2017-04-14] MEDS: Pantoprazole 20 mg EC Tab PO SCH ×2 (06:32→16:49)
[2017-04-14] MEDS ORDERED: Ergocalciferol 50,000 Intl Units Cap PO SCH (06:45)
[2017-04-14 06:51] LABS: CALCIUM 6.9 mg/dL (8.4-10.5)
[2017-04-14] MEDS: Insulin Lispro (humaLOG) LOW Coverage SC SCH ×4 (07:52→21:37)
[2017-04-14] MEDS: Lactobacillus Acidophilus 500 MU Cap PO SCH ×3 (10:51→18:23)
[2017-04-14] MEDS: Magnesium Oxide 400 mg Tab UD PO SCH (10:52)
[2017-04-14] MEDS: Meropenem 1g/NS 100mL IVPB 1 GM/100 ML PIGGYBACK IVPB SCH ×2 (10:52→21:36)
[2017-04-14] MEDS: Potassium & Sodium Phosphate PO SCH ×3 (10:53→18:23)
[2017-04-14] MEDS: Mesalamine ER Cap 500 MG PO SCH ×2 (10:54→18:23)
--- NOTE | 2017-04-14 11:29 | PN ---
DATE: 04/14/2017 SUBJECTIVE: I examined Ms. Cloud this morning. 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 Currently, admitted with urinary tract obstruction, had stents placed by Dr. Horvath bilaterally. The patient denied this morning any high fevers. Also, her abdominal cramping has decreased somewhat, however, still complaining about liquid-type diarrhea. She could not elaborate whether the frequency or volume has decreased as of yesterday after change of diet from heart healthy to full liquid. The only major difference she indicated was that there was decrease in the amount of cramping substantially. PHYSICAL EXAMINATION VITAL SIGNS: I reviewed this patient's vital signs. No change in lung and heart from yesterday. ABDOMEN: Protuberant, soft. No tenderness elicited in the epigastric area, right upper quadrant, left upper quadrant. She has some mild discomfort in the area of the left lower quadrant. LABORATORY DATA: I reviewed this patient's laboratory data. White count is in the range of 2.4, H/H with platelets count of 66. No new microbiological. C. diff was reviewed yesterday, her C. difficile toxin and antigen are both negative. I reviewed the notes of Dr. Mckenna as well as Dr. Mariano. Note that Dr. Mckenna's note indicates a plan which will be to continue meropenem and to consider a total of 10 to 14 days of antibiotics. OVERALL ASSESSMENT: This is a 71-year-old white female with known history of enterocolitis with bilateral obstructing kidney stones, now with 2 stents. Ureterohydronephrosis noted on CT scan bilaterally. Followup plan for the stones as per urology service. That the patient is still on high-dose antibiotics, this is contributing to her diarrhea issue despite the fact she is on probiotic therapy. Note that the dose of her Bacid is 1 capsule p.o. t.i.d. If available, one might consider changing her probiotic to a type containing bifidobacteria. This may produce somewhat of a better response than the Lactobacillus. I reviewed the issue of her CT findings with both the patient as well as Dr. Browne yesterday. Note that she had been relatively symptomatic regarding enterocolitis therapy at home. Note that she takes Pentasa on an outpatient basis, dose 2000 mg b.i.d. or 4 capsules b.i.d. The patient does not need immunomodulator or anti-TNF. She does require periodic steroid treatment that is a tapered dose over short time on a periodic basis due to flares. At the current time, she does not seem to be experiencing a Crohn's flareup. However due to the CT appearance, I entertained the idea of possibly a very short course of steroids over the next couple of days depending on the diarrhea response. Note that she is not experiencing as much abdominal pain now. The patient's remaining other issues including diabetes, which is being treated by the house staff. Her diet was changed yesterday to a full liquid diet hopefully to facilitate some decrease in the volume as well as frequency of her diarrhea. Because of her request this morning to have shrimp scampi for dinner tonight, I will continue the liquid diet both for breakfast and lunch, then change her diet over to soft to accommodate her request for the shrimp dinner tonight. I discussed this with nurse on the floor. Alli Jackman DO, PhD [facility]
--- NOTE | 2017-04-14 16:53 | PN ---
DATE: 04/14/2017 SUBJECTIVE: The patient had previously bilateral pigtail stents placed for bilateral hydronephrosis and renal calculi. She was tolerating them very well. LABORATORY DATA: Her white count is 2400, it has not changed. Her hemoglobin is 9.3. Her hepatitis profile was all negative. Her creatinine is 0.7. A urine culture on 04/11/2017 was no growth. PHYSICAL EXAMINATION: VITAL SIGNS: As mentioned, she is afebrile. Blood pressure 101/55, pulse 73, respiration is 18. ASSESSMENT AND PLAN: I discussed with her the need to follow up in the office. I will see her in the office, re-culture urine and schedule her for elective ESWL of the obstructing stones, and she is in agreement with the plan. She had x-rays done in the department after the stents were placed, which showed a large right renal pelvic stone and also a stone in the lower pole of left kidney, 17 mm. Baldemar Horvath MD
--- NOTE | 2017-04-14 19:17 | CP.PCM.PN ---
Subjective - Date & Time of Evaluation Date of Evaluation: 04/14/17 Time of Evaluation: 07:00 - Subjective Subjective: Pt s/e at bedside. She is feeling better, however, pt may have C. Diff Colitis - has been placed on contact precautions and Flagyl. First C. Diff was negative , repeated test. Her GI doctor, Dr. Chadwick, placed her on a soft diet yesterday to relieve her diarrhea. No acute complaints. Objective - Vital Signs/Intake and Output Vital Signs (last 24 hours): Temp Pulse Resp BP Pulse Ox 98.2 F 72 18 101/55 L 96 04/14/17 12:00 04/14/17 14:00 04/14/17 12:00 04/14/17 12:00 04/13/17 06:00 - Medications Medications: Current Medications Acetaminophen (Tylenol 325mg Tab) 650 mg PO Q4H PRN PRN Reason: Fever >100.4 F Last Admin: 04/10/17 12:33 Dose: 650 mg Ascorbic Acid (Vitamin C 500 Mg Tab) 500 mg PO DAILY [facility] Last Admin: 04/14/17 10:55 Dose: 500 mg Calcium Carbonate (Caltrate) 600 mg PO QID [facility] Last Admin: 04/14/17 18:23 Dose: 600 mg Diphenhydramine HCl (Benadryl) 25 mg PO HS PRN PRN Reason: Insomnia Last Admin: 04/13/17 02:05 Dose: 25 mg Ergocalciferol (Drisdol 50,000 Intl Units Cap) 1 cap PO Q7D [facility] Last Admin: 04/14/17 06:55 Dose: 1 cap Gabapentin (Neurontin) 300 mg PO TID [facility] PRN Reason: Protocol Last Admin: 04/14/17 18:23 Dose: 300 mg Meropenem 1g/NS 100mL IVPB (Meropenem 1g/Ns 100ml Ivpb) 1 gm in 100 mls @ 100 mls/hr IVPB Q12 [facility] PRN Reason: Protocol Stop: 04/16/17 10:01 Last Admin: 04/14/17 10:52 Dose: 100 mls/hr Sodium Bicarbonate 150 meq/ (Sodium Chloride) 1,150 mls @ 100 mls/hr IV .[id number] [facility] Last Admin: 04/14/17 10:55 Dose: Not Given Insulin Human Lispro (Humalog Low) 0 units SC ACHS [facility] PRN Reason: Protocol Last Admin: 04/14/17 16:49 Dose: 2 units Lactobacillus Acidophilus (Bacid Acidophilus) 1 cap PO TID [facility] Last Admin: 04/14/17 18:23 Dose: 1 cap Magnesium Oxide (Mag-Ox) 400 mg PO DAILY [facility] Last Admin: 04/14/17 10:52 Dose: 400 mg Mesalamine (Pentasa) 2,000 mg PO BID [facility] Stop: 04/17/17 23:59 Last Admin: 04/14/17 18:23 Dose: 2,000 mg Metronidazole (Flagyl) 500 mg PO Q8 [facility] PRN Reason: Protocol Last Admin: 04/14/17 14:57 Dose: 500 mg Pantoprazole Sodium (Protonix Ec Tab) 20 mg PO 0600,1600 [facility] Last Admin: 04/14/17 16:49 Dose: 20 mg Phenazopyridine HCl (Pyridium) 200 mg PO TID [facility] Last Admin: 04/14/17 18:23 Dose: 200 mg Potassium Phos/Sodium Phos (Neutra-Phos) 1 pkt PO TID [facility] Last Admin: 04/14/17 18:23 Dose: 1 pkt Sertraline HCl (Zoloft) 100 mg PO DAILY [facility] Last Admin: 04/14/17 10:55 Dose: 100 mg Tamsulosin HCl (Flomax) 0.4 mg PO DAILY [facility] Last Admin: 04/14/17 10:51 Dose: 0.4 mg Thiamine HCl (Vitamin B1 Tab) 100 mg PO DAILY [facility] Last Admin: 04/14/17 10:55 Dose: 100 mg - Labs Labs: 04/14/17 05:30 04/14/17 05:30 PT 16.3 Seconds (9.9-11.8) H 04/12/17 05:20 INR 1.51 (0.93-1.08) H 04/12/17 05:20 APTT 41.4 Seconds (23.7-30.8) H 04/12/17 05:20 - Additional Findings Additional findings: VS as below Constitutional: a&o x 4, nad Head and Neck: neck supple, no jvd, trachea midline, carotid midline, no cervical/head mass Eyes: varun, nonicteric sclera, eom intact ENT: auditory acuity grossly intact, throat not congested, no nasal deformity Cardio: rrr, no m/r/g, no carotid bruit, nml s1, s2 Pulm: no accessory muscle use, equal nml breath sounds bilaterally, ctab Abd: s/nt/nd, nbs x 4 q, no palpable masses Derm: no rashes, no ulcers, no lesions Extr: no edema, no cyanosis, no calf tenderness, no lesions, no varicosities Neuro: cn II-XII grossly intact, ue and le 5/5 muscle strength bilaterally, no los ue, le bilaterally and core Assessment and Plan - Assessment and Plan (Free Text) Assessment: This is a 71Y F with PMH DM, recurrent UTIs with nephrolithiasis and pyelonephritis, recurrent hypokalemia, Crohn's disease and depression admitted for sepsis secondary to UTI. Plan: 1. Sepsis, likely 2/2 UTI - Continue NS@125 - ID consulted- Merrem day 6 of 8 - Urine culture: negative - Blood culture: negative - Renal U/S showed bilateral hydronephrosis - Urology, Dr. Horvath consulted: placed b/l pigtail stents to relieve possible hydronephrosis (04/11/17) - Continue Merrem - Tylenol prn fever 2. Hypokalemia, Hypomagnesia, Hypophophatemia - Neutraphos, Mag and K given are being given prn - K-dur 20meq and Magox PO daily 3. Unintentional weight loss - Heme consulted - Rule out malignancy: may be an MDS - Will follow up hematology recommendations: Want to rpt BM Bx outpatient 4. Watery Diarrhea - Patient most likely has C. Diff Colitis - f/u stool c. diff. - Contact precautions - Flagyl initiated - GI c/s: Zelinski 5. NIDDM - HgbA1 pending - ISS - Continue BGM ACHS 6. Hx of Crohn's - Continue Mesalamine 7. Hx of Depression - Continue Zoloft GI ppx: Protonix DVT ppx: SCDs
--- NOTE | 2017-04-14 20:44 | CP.PCM.PN ---
Subjective - Date & Time of Evaluation Date of Evaluation: 04/14/17 Time of Evaluation: 09:55 - Subjective Subjective: Comfortable in bed but having loose bowel movement. Objective - Vital Signs/Intake and Output Vital Signs (last 24 hours): Temp Pulse Resp BP Pulse Ox 98.5 F 68 18 95/48 L 96 04/14/17 06:00 04/14/17 06:00 04/14/17 06:00 04/14/17 06:00 04/13/17 06:00 Intake and Output: 04/13/17 04/14/17 18:59 06:59 Intake Total 1200 Balance 1200 - Medications Medications: Current Medications Acetaminophen (Tylenol 325mg Tab) 650 mg PO Q4H PRN PRN Reason: Fever >100.4 F Last Admin: 04/10/17 12:33 Dose: 650 mg Ascorbic Acid (Vitamin C 500 Mg Tab) 500 mg PO DAILY [facility] Last Admin: 04/13/17 10:01 Dose: 500 mg Calcium Carbonate (Caltrate) 600 mg PO QID [facility] Last Admin: 04/13/17 22:12 Dose: 600 mg Diphenhydramine HCl (Benadryl) 25 mg PO HS PRN PRN Reason: Insomnia Last Admin: 04/13/17 02:05 Dose: 25 mg Gabapentin (Neurontin) 300 mg PO TID [facility] PRN Reason: Protocol Last Admin: 04/13/17 18:48 Dose: 300 mg Meropenem 1g/NS 100mL IVPB (Meropenem 1g/Ns 100ml Ivpb) 1 gm in 100 mls @ 100 mls/hr IVPB Q12 [facility] PRN Reason: Protocol Stop: 04/16/17 10:01 Last Admin: 04/13/17 22:12 Dose: 100 mls/hr Sodium Bicarbonate 150 meq/ (Sodium Chloride) 1,150 mls @ 100 mls/hr IV .[id number] [facility] Last Admin: 04/13/17 19:41 Dose: 100 mls/hr Insulin Human Lispro (Humalog Low) 0 units SC ACHS [facility] PRN Reason: Protocol Last Admin: 04/13/17 22:13 Dose: Not Given Lactobacillus Acidophilus (Bacid Acidophilus) 1 cap PO TID [facility] Last Admin: 04/13/17 18:48 Dose: 1 cap Magnesium Oxide (Mag-Ox) 400 mg PO DAILY [facility] Last Admin: 04/13/17 10:00 Dose: 400 mg Mesalamine (Pentasa) 2,000 mg PO BID [facility] Stop: 04/17/17 23:59 Last Admin: 04/13/17 18:48 Dose: 2,000 mg Metronidazole (Flagyl) 500 mg PO Q8 [facility] PRN Reason: Protocol Last Admin: 04/14/17 05:02 Dose: 500 mg Pantoprazole Sodium (Protonix Ec Tab) 20 mg PO 0600,1600 [facility] Last Admin: 04/13/17 17:17 Dose: 20 mg Phenazopyridine HCl (Pyridium) 200 mg PO TID [facility] Last Admin: 04/13/17 18:49 Dose: 200 mg Potassium Chloride (Potassium Chloride Oral Soln) 40 meq PO Q4 [facility] Last Admin: 04/14/17 05:02 Dose: 40 meq Potassium Phos/Sodium Phos (Neutra-Phos) 1 pkt PO TID [facility] Last Admin: 04/13/17 18:48 Dose: 1 pkt Sertraline HCl (Zoloft) 100 mg PO DAILY [facility] Last Admin: 04/13/17 10:00 Dose: 100 mg Tamsulosin HCl (Flomax) 0.4 mg PO DAILY [facility] Last Admin: 04/13/17 10:00 Dose: 0.4 mg Thiamine HCl (Vitamin B1 Tab) 100 mg PO DAILY [facility] Last Admin: 04/13/17 10:01 Dose: 100 mg - Labs Labs: 04/14/17 05:30 04/13/17 04:45 PT 16.3 Seconds (9.9-11.8) H 04/12/17 05:20 INR 1.51 (0.93-1.08) H 04/12/17 05:20 APTT 41.4 Seconds (23.7-30.8) H 04/12/17 05:20 - Constitutional Appears: Non-toxic, No Acute Distress - Head Exam Head Exam: NORMAL INSPECTION - Respiratory Exam Respiratory Exam: Decreased Breath Sounds - Cardiovascular Exam Cardiovascular Exam: +S1, +S2 - GI/Abdominal Exam GI & Abdominal Exam: Soft. absent: Tenderness Assessment and Plan - Assessment and Plan (Free Text) Plan: Assessment severe sepsis probably due to urinary tract infection in a patient with a history of nephrolithiasis S/P pigtail catheter placement Diarrhea, consider antibiotic-associated history of right sided pyelonephritis associated with nephrolithiasis with E. faecalis Crohn's disease DM history of pyelonephritis bilateral nephrolithiasis S/P cholecystectomy S/P tubal ligation Plan continue Merrem (day 6, total day 7 of antibiotics); urine cx showing 2 organisms and the lab is unable to identify the organisms; CT A/P showing bilateral hydronephrosis - she is S/P pigtail catheter placement - should plan on 10-14 days of antibiotics stool for C. diff. is negative will continue to monitor clinically
[2017-04-15] MEDS: Pantoprazole 20 mg EC Tab PO SCH ×2 (05:06→18:21)
--- NOTE | 2017-04-15 07:18 | CP.PCM.PN ---
Subjective - Date & Time of Evaluation Date of Evaluation: 04/15/17 Time of Evaluation: 08:15 - Subjective Subjective: PGY2 Medicine note for Dr. Browne Patient seen and examined at bedside. She continues to complain of nonbloody nonmelanotic diarrhea for which she has been wearing an adult diaper. Patient reports the diarrhea has slightly improved but is still persistent. She is also complaining of LE swelling but no pain bilaterally that she has noticed has been worsening since admission. She has not been ambulating as she is fall risk but she has been working with physical therapy. Patient denies any headache, dizziness, chest pain, palpitations, SOB, cough, abd pain, nausea, vomiting, and urinary complaints. She has been eating well and states she feels better than when she was admitted and reports she is eager to go home to tend to her . Objective - Vital Signs/Intake and Output Vital Signs (last 24 hours): Temp Pulse Resp BP Pulse Ox 97.8 F 68 18 99/47 L 97 04/15/17 05:40 04/15/17 05:40 04/15/17 05:40 04/15/17 05:40 04/15/17 05:40 Intake and Output: 04/15/17 04/15/17 06:59 18:59 Intake Total 1560 Output Total 3 Balance 1557 - Medications Medications: Current Medications Acetaminophen (Tylenol 325mg Tab) 650 mg PO Q4H PRN PRN Reason: Fever >100.4 F Last Admin: 04/15/17 00:01 Dose: 650 mg Ascorbic Acid (Vitamin C 500 Mg Tab) 500 mg PO DAILY [facility] Last Admin: 04/14/17 10:55 Dose: 500 mg Calcium Carbonate (Caltrate) 600 mg PO QID [facility] Last Admin: 04/14/17 21:36 Dose: 600 mg Diphenhydramine HCl (Benadryl) 25 mg PO HS PRN PRN Reason: Insomnia Last Admin: 04/15/17 00:02 Dose: 25 mg Ergocalciferol (Drisdol 50,000 Intl Units Cap) 1 cap PO Q7D [facility] Last Admin: 04/14/17 06:55 Dose: 1 cap Gabapentin (Neurontin) 300 mg PO TID [facility] PRN Reason: Protocol Last Admin: 04/14/17 18:23 Dose: 300 mg Meropenem 1g/NS 100mL IVPB (Meropenem 1g/Ns 100ml Ivpb) 1 gm in 100 mls @ 100 mls/hr IVPB Q12 [facility] PRN Reason: Protocol Stop: 04/16/17 10:01 Last Admin: 04/14/17 21:36 Dose: 100 mls/hr Sodium Bicarbonate 150 meq/ (Sodium Chloride) 1,150 mls @ 100 mls/hr IV .[id number] [facility] Last Admin: 04/14/17 21:10 Dose: 100 mls/hr Insulin Human Lispro (Humalog Low) 0 units SC ACHS [facility] PRN Reason: Protocol Last Admin: 04/14/17 21:37 Dose: Not Given Lactobacillus Acidophilus (Bacid Acidophilus) 1 cap PO TID [facility] Last Admin: 04/14/17 18:23 Dose: 1 cap Magnesium Oxide (Mag-Ox) 400 mg PO DAILY [facility] Last Admin: 04/14/17 10:52 Dose: 400 mg Mesalamine (Pentasa) 2,000 mg PO BID [facility] Stop: 04/17/17 23:59 Last Admin: 04/14/17 18:23 Dose: 2,000 mg Pantoprazole Sodium (Protonix Ec Tab) 20 mg PO 0600,1600 [facility] Last Admin: 04/15/17 05:06 Dose: 20 mg Phenazopyridine HCl (Pyridium) 200 mg PO TID [facility] Last Admin: 04/14/17 18:23 Dose: 200 mg Potassium Phos/Sodium Phos (Neutra-Phos) 1 pkt PO TID [facility] Last Admin: 04/14/17 18:23 Dose: 1 pkt Sertraline HCl (Zoloft) 100 mg PO DAILY [facility] Last Admin: 04/14/17 10:55 Dose: 100 mg Tamsulosin HCl (Flomax) 0.4 mg PO DAILY [facility] Last Admin: 04/14/17 10:51 Dose: 0.4 mg Thiamine HCl (Vitamin B1 Tab) 100 mg PO DAILY [facility] Last Admin: 04/14/17 10:55 Dose: 100 mg - Labs Labs: 04/14/17 05:30 04/14/17 05:30 PT 16.3 Seconds (9.9-11.8) H 04/12/17 05:20 INR 1.51 (0.93-1.08) H 04/12/17 05:20 APTT 41.4 Seconds (23.7-30.8) H 04/12/17 05:20 - Additional Findings Additional findings: Constitutional: a&o x 4, nad Head and Neck: neck supple, no jvd, trachea midline, carotid midline, no cervical/head mass Eyes: nonicteric sclera, EOMI ENT: auditory acuity grossly intact, throat not congested, no nasal deformity Cardio: rrr, no m/r/g, no carotid bruit, nml s1, s2 Pulm: no accessory muscle use, equal nml breath sounds bilaterally, ctab Abd: s/nt/nd, nbs x 4 q, no palpable masses Derm: no rashes, no ulcers, no lesions Extr: +2 b/l LE pitting edema, no cyanosis, no calf tenderness, no lesions, no varicosities Neuro: cn II-XII grossly intact, ue and le 5/5 muscle strength bilaterally, no los ue, le bilaterally and core Assessment and Plan - Assessment and Plan (Free Text) Assessment: 71 yo female PMHx of DM type 2, nephrolithiasis, pyelonephritis, recurrent UTI' s, hypokalemia, Crohn's disease, depression who presented to ED on 04/08 with fever and generalized weakness for 1 day; found to have urosepsis and intractable diarrhea Plan: Sepsis, likely 2/2 UTI - patient has history of multiple resistant UTIs - Urine culture: negative x 3 - Blood culture: negative x 2 [4 vials total] - Merrem 1gm ivpb q12 [day 6 of 7] - Vitamin C 500mg po daily - Thiamine 100mg po daily - Florastor 1 cap po tid - Tylenol 650mg po q6 prn fever > 100.4F - CXR 04/07: no active disease - ID Dr. Mckenan on board Pancytopenia - patient has had prior bone marrow biopsy in 2012 - coupled with unintentional weight loss, pancytopenia is concerning for myelodysplastic syndrome - Heme/onc Dr. Wynn on board: repeat bone marrow biopsy to be done outpatient Intractable diarrhea - C. Diff negative x 2 - f/u stool studies and stool electrolytes - CT abdomen/pelvis 04/09: findings suspicious for marked enterocolitis, moderate abdominal and pelvic free fluid, small b/l pleural effusions and diffuse anasarca - Florastor 1 cap po tid - ID Dr. Mckenna on board - GI Dr. Jackman on board Bilateral hydronephrosis - POD#4 bilateral pigtail catheter insertion - Renal u/s 04/08: severe R hydronephrosis secondary to 3.9cm stone in renal pelvis; mild left hydronephrosis secondary to partially obstructing 2cm stone in the renal pelvis - CT abdomen/pelvis 04/09: bilateral hydroureteronephrosis with no causative obstructing stone seen; extensive nonobstructing renal stones - Abdominal x-ray 04/11: nephrolithiasis - Flomax 0.4mg po daily - Urology Dr. Horvath on board: will see patient outpatient and reculture urine and schedule for elective ESWL of obstructing stones Electrolyte abnormalities - Hypokalemia, Hypomagnesia, Hypophophatemia, Hypocalcemia, low 25OH vitamin D - daily repleted as needed - Patient started on TPN gtt - Drisdol 50,000U 1 cap po q7day NIDDM - HgbA1: 5.8 - Accucheck ACHS - RISS low ACHS - Neurontin 300mg po tid Hx of Crohn's Enterocolitis - Pyridium 200mg po tid - Pentasa 2000mg po bid Hx of Depression - Zoloft 100mg po daily - Benadryl 25mg po hs prn insomnia GI ppx: Protonix 20mg po bid DVT ppx: SCDs Disposition: TCU evaluation for deconditioning Case discussed with Dr. Pavan Yap PGY2
[2017-04-15 07:20] LABS: HEMOGLOBIN 8.7 g/dL (12.0-16.0); MEAN CELL VOLUME 97.2 fl (80.0-105.0); MEAN CORPUSCULAR HEMOGLOBIN 30.3 pg (25.0-35.0); MEAN CORPUSCULAR HGB CONC 31.2 g/dl (31.0-37.0); MEAN PLATELET VOLUME 10.2 fl (7.0-11.0); PLATELET COUNT 70 10^3/uL (120.0-450.0); RBC 2.87 10^6/uL (3.5-6.1); RED CELL DISTRIBUTION WIDTH 15.5 % (11.5-14.5)
[2017-04-15 07:27] LABS: WHITE BLOOD COUNT 1.8 10^3/ul (4.5-11.0)
[2017-04-15 07:38] LABS: ALB/GLOB RATIO 0.8 (1.1-1.8); ALBUMIN 2.1 g/dL (3.0-4.8); ALT/SGPT 31 U/L (7-56); AST/SGOT 30 U/L (15-39); BLOOD UREA NITROGEN 5 mg/dL (7-21); GFR AFRICAN-AMERICAN > 60; GFR NON-AFRICAN AMERICAN > 60; MAGNESIUM 1.6 mg/dL (1.7-2.2)
[2017-04-15 07:40] LABS: CALCIUM 6.3 mg/dL (8.4-10.5)
--- NOTE | 2017-04-15 08:13 | PN ---
DATE: 04/15/2017 SUBJECTIVE: I examined the patient this morning. She is a 71-year-old white female known to senior health consultant with past medical history of diabetes, kidney stones, pyelonephritis and Crohn's enterocolitis. The patient seems to be making progress on the current therapeutic regimen. The refractory diarrhea experienced at home seems to be decreasing somewhat. Note that her diet was increased to small portions of soft yesterday, and according to the patient this morning at bedside, she had no diarrhea last night. She wished to continue to try small portions of soft throughout the day today. There is no abdominal cramping. Note that she was visited by multiple consultants yesterday including Dr. Horvath, Dr. Browne's resident and infectious disease. She has not been seen by hematology as of yet. Note that it was suggested on several occasions to have hematology evaluate the patient for pancytopenia. PHYSICAL EXAMINATION VITAL SIGNS: I reviewed this patient's vital signs. HEENT: Significant for some dry mouth. LUNGS: Decreased breath sounds, basilar. HEART: Regular rhythm. ABDOMEN: Soft, doughy, irregular bowel sounds. There is no tenderness elicited. As indicated previously, C. diff on 04/12 was negative. This is subsequently the case on a repeat study. The patient was subsequently taken off precautions. LABORATORY DATA: Note that her lab data reveal consistent pancytopenia with white count in the range of 2.4 with hemoglobin 9.3 and platelet counts in the range of 74. This is a new phenomenon for her. Note that her retic count noted on 04/10 is 1.88 which is grossly inadequate. Therefore, there is poor marrow reserve, bone marrow was suggested. OVERALL ASSESSMENT: This is a 71-year-old white female with a history of Crohn's enterocolitis presenting with history of recurrent stones, currently has 2 pigtail stents placed by Dr. Horvath. According to the patient, this would be followed up on an outpatient basis in the stone center. At the current time point, the patient has been on Pentasa for years, has had a good response to that. No hematologic issues noted with Pentasa in the past, and she has not used anti-TNF inhibitors. Given the patient's symptoms, especially diarrhea and cramping, I did discuss the possibility if required of a short-time pulse steroid treatment, however, given the fact that the patient is doing well on current regimen, it was consensus between myself and the patient that we hold off on steroid treatments. Note that her x-ray on admission revealed what appeared to be some active disease in the small bowel as well as in the colon. There may have been significant radiology contribution due to possible Clostridium difficile colitis if that was the case or possibly sepsis. The patient is pancytopenic. This is apparently new phenomenon for her. Dr. Wynn's consult is pending for a possible bone marrow. Note that she has inadequate marrow reserve for the retic count of 1.88 as indicated above. Since the patient did well with her shrimp scampi dinner last night, advised her to try very small portions of soft low residue throughout the day today and check diarrhea response. Alli Jackman DO, PhD [facility]
[2017-04-15] MEDS: Insulin Lispro (humaLOG) LOW Coverage SC SCH ×4 (08:52→22:41)
[2017-04-15 09:27] LABS: EOSINOPHIL 3 % (0.0-3.0); LYMPHOCYTE 32 % (22.0-35.0); MONOCYTE 3 % (1.0-6.0); MYELOCYTE 1 %; NEUTROPHIL 61 % (50.0-70.0); PLATELET ESTIMATE LOW (NORMAL)
[2017-04-15] MEDS: Mesalamine ER Cap 500 MG PO SCH ×2 (10:14→18:21)
[2017-04-15] MEDS: Magnesium Oxide 400 mg Tab UD PO SCH (10:14)
[2017-04-15] MEDS: Lactobacillus Acidophilus 500 MU Cap PO SCH ×3 (10:14→18:21)
[2017-04-15] MEDS: Meropenem 1g/NS 100mL IVPB 1 GM/100 ML PIGGYBACK IVPB SCH ×2 (10:15→22:00)
[2017-04-15] MEDS: Potassium & Sodium Phosphate PO SCH ×3 (10:17→18:21)
[2017-04-15] MEDS: Fat Emulsion 20% IV 250 ML IV SCH (18:22)
--- NOTE | 2017-04-15 20:44 | CP.PCM.PN ---
Subjective - Date & Time of Evaluation Date of Evaluation: 04/15/17 Time of Evaluation: 10:25 - Subjective Subjective: Comfortable, not in distress, afebrile, still having loose bowel movement. Objective - Vital Signs/Intake and Output Vital Signs (last 24 hours): Temp Pulse Resp BP Pulse Ox 97.8 F 68 18 99/47 L 97 04/15/17 05:40 04/15/17 05:40 04/15/17 05:40 04/15/17 05:40 04/15/17 05:40 Intake and Output: 04/15/17 04/15/17 06:59 18:59 Intake Total 1560 Output Total 3 Balance 1557 - Medications Medications: Current Medications Acetaminophen (Tylenol 325mg Tab) 650 mg PO Q4H PRN PRN Reason: Fever >100.4 F Last Admin: 04/15/17 00:01 Dose: 650 mg Ascorbic Acid (Vitamin C 500 Mg Tab) 500 mg PO DAILY [facility] Last Admin: 04/14/17 10:55 Dose: 500 mg Calcium Carbonate (Caltrate) 600 mg PO QID [facility] Last Admin: 04/14/17 21:36 Dose: 600 mg Diphenhydramine HCl (Benadryl) 25 mg PO HS PRN PRN Reason: Insomnia Last Admin: 04/15/17 00:02 Dose: 25 mg Ergocalciferol (Drisdol 50,000 Intl Units Cap) 1 cap PO Q7D [facility] Last Admin: 04/14/17 06:55 Dose: 1 cap Gabapentin (Neurontin) 300 mg PO TID [facility] PRN Reason: Protocol Last Admin: 04/14/17 18:23 Dose: 300 mg Meropenem 1g/NS 100mL IVPB (Meropenem 1g/Ns 100ml Ivpb) 1 gm in 100 mls @ 100 mls/hr IVPB Q12 [facility] PRN Reason: Protocol Stop: 04/16/17 10:01 Last Admin: 04/14/17 21:36 Dose: 100 mls/hr Sodium Bicarbonate 150 meq/ (Sodium Chloride) 1,150 mls @ 100 mls/hr IV .[id number] [facility] Last Admin: 04/14/17 21:10 Dose: 100 mls/hr Insulin Human Lispro (Humalog Low) 0 units SC ACHS [facility] PRN Reason: Protocol Last Admin: 04/14/17 21:37 Dose: Not Given Lactobacillus Acidophilus (Bacid Acidophilus) 1 cap PO TID [facility] Last Admin: 04/14/17 18:23 Dose: 1 cap Magnesium Oxide (Mag-Ox) 400 mg PO DAILY [facility] Last Admin: 04/14/17 10:52 Dose: 400 mg Mesalamine (Pentasa) 2,000 mg PO BID [facility] Stop: 04/17/17 23:59 Last Admin: 04/14/17 18:23 Dose: 2,000 mg Pantoprazole Sodium (Protonix Ec Tab) 20 mg PO 0600,1600 [facility] Last Admin: 04/15/17 05:06 Dose: 20 mg Phenazopyridine HCl (Pyridium) 200 mg PO TID [facility] Last Admin: 04/14/17 18:23 Dose: 200 mg Potassium Phos/Sodium Phos (Neutra-Phos) 1 pkt PO TID [facility] Last Admin: 04/14/17 18:23 Dose: 1 pkt Sertraline HCl (Zoloft) 100 mg PO DAILY [facility] Last Admin: 04/14/17 10:55 Dose: 100 mg Tamsulosin HCl (Flomax) 0.4 mg PO DAILY [facility] Last Admin: 04/14/17 10:51 Dose: 0.4 mg Thiamine HCl (Vitamin B1 Tab) 100 mg PO DAILY [facility] Last Admin: 04/14/17 10:55 Dose: 100 mg - Labs Labs: 04/15/17 06:00 04/14/17 05:30 PT 16.3 Seconds (9.9-11.8) H 04/12/17 05:20 INR 1.51 (0.93-1.08) H 04/12/17 05:20 APTT 41.4 Seconds (23.7-30.8) H 04/12/17 05:20 - Constitutional Appears: Non-toxic, No Acute Distress - Head Exam Head Exam: NORMAL INSPECTION - Respiratory Exam Respiratory Exam: Decreased Breath Sounds - Cardiovascular Exam Cardiovascular Exam: +S1, +S2 - GI/Abdominal Exam GI & Abdominal Exam: Soft. absent: Tenderness Assessment and Plan - Assessment and Plan (Free Text) Plan: Assessment severe sepsis probably due to urinary tract infection in a patient with a history of nephrolithiasis S/P pigtail catheter placement Diarrhea, consider antibiotic-associated history of right sided pyelonephritis associated with nephrolithiasis with E. faecalis Crohn's disease DM history of pyelonephritis bilateral nephrolithiasis S/P cholecystectomy S/P tubal ligation Plan continue Merrem (day 7, total day 8 of antibiotics); urine cx showing 2 organisms and the lab is unable to identify the organisms; CT A/P showing bilateral hydronephrosis - she is S/P pigtail catheter placement - should plan on 10-14 days of antibiotics stool for C. diff. is negative will continue to monitor clinically discussed with Dr. Browne
[2017-04-16] MEDS: Pantoprazole 20 mg EC Tab PO SCH ×2 (05:23→19:24)
[2017-04-16 05:57] VITALS: O2SAT 97
[2017-04-16 08:16] LABS: HEMOGLOBIN 9.2 g/dL (12.0-16.0); RBC 2.95 10^6/uL (3.5-6.1)
[2017-04-16 08:17] LABS: GRAN % 64.1 % (50.0-68.0); LYMPH % 22.4 % (22.0-35.0); MEAN CELL VOLUME 101.7 fl (80.0-105.0); MEAN CORPUSCULAR HEMOGLOBIN 31.2 pg (25.0-35.0); MEAN CORPUSCULAR HGB CONC 30.7 g/dl (31.0-37.0); MEAN PLATELET VOLUME 11.1 fl (7.0-11.0); MONO % 9.4 % (1.0-6.0); PLATELET COUNT 79 10^3/uL (120.0-450.0); RED CELL DISTRIBUTION WIDTH 15.1 % (11.5-14.5)
[2017-04-16 08:18] LABS: BASO # 0.01 K/mm3 (0.0-2.0); BASO % 0.5 % (0.0-3.0); EOS # 0.1 (0.0-0.7); EOS % 3.6 % (1.5-5.0); GRAN # 1.23 (1.4-6.5); LYMPH # 0.4 (1.2-3.4); MONO # 0.2 (0.1-0.6)
[2017-04-16] MEDS: Insulin Lispro (humaLOG) LOW Coverage SC SCH ×4 (08:32→22:21)
[2017-04-16 09:46] LABS: ALB/GLOB RATIO 0.8 (1.1-1.8); ALBUMIN 2.1 g/dL (3.0-4.8); ALT/SGPT 24 U/L (7-56); AST/SGOT 38 U/L (15-39); BLOOD UREA NITROGEN 7 mg/dL (7-21); GFR AFRICAN-AMERICAN > 60; GFR NON-AFRICAN AMERICAN > 60; MAGNESIUM 1.8 mg/dL (1.7-2.2)
[2017-04-16 09:49] LABS: CALCIUM 6.5 mg/dL (8.4-10.5)
[2017-04-16] MEDS: Magnesium Oxide 400 mg Tab UD PO SCH (10:02)
[2017-04-16] MEDS: Mesalamine ER Cap 500 MG PO SCH ×2 (10:02→19:19)
[2017-04-16] MEDS: Meropenem 1g/NS 100mL IVPB 1 GM/100 ML PIGGYBACK IVPB SCH ×2 (10:03→21:58)
[2017-04-16] MEDS: Lactobacillus Acidophilus 500 MU Cap PO SCH ×3 (10:03→19:19)
[2017-04-16] MEDS: Potassium & Sodium Phosphate PO SCH ×3 (10:04→19:22)
--- NOTE | 2017-04-16 10:23 | PN ---
DATE: 04/16/2017 SUBJECTIVE: I examined Ms. Cloud this morning. She is a 71-year-old white female with past medical history of enterocolitis, diabetes, and recurrent kidney stones. The patient seems to be making progress on the current regimen, however, still having diarrhea periodically. The nocturnal diarrhea has dissipated substantially. She is not complaining of nausea, vomiting or abdominal pain. The abdomen is decompressed and soft. She has been handling a soft diet reasonably well. She was advised on multiple occasions, due to the diarrhea she is to take antibiotics, to continue small portions of soft only instead of pushing her diet. The patient denied shortness of breath, fever, chills, hematemesis or rectal bleeding. PHYSICAL EXAMINATION: VITAL SIGNS: I reviewed this patient's vital signs. HEENT: Noncontributory. LUNGS: Decreased breath sounds, basilar. HEART: Regular rhythm. ABDOMEN: Soft, decompressed. No tenderness elicited in any quadrant. LABORATORY DATA: Reviewed the patient's laboratory data today. Note that as of yesterday, her white count was down to 1.8, critically low, noticed that the decreasing of white count as well as the hemoglobin started at the time of admission. Her platelets have consistently being in the range of mid 60s to low 70s. There is no evidence of any rectal bleeding. I reviewed the reports of Dr. Yap as well as Dr. Mckenna. ASSESSMENT: This is a 71-year-old female admitted with complaints relative to her obstructed urinary tract. Note that she has recurrent obstructing kidney stones and currently has 2 pigtail stents inserted by Dr. Horvath. This would be treated in an outpatient basis in the [facility]. The patient is currently on antibiotics as per Dr. Mckenna. The patient has history of enterocolitis, had been on Pentasa therapy at home, doing relatively well without flares. Note that there is no evidence of any enterocolitis flare this admission. Therefore, no need for any steroid therapy. The diarrhea is most likely secondary to antibiotics. Note that the evaluation for Clostridium difficile had been recurrently negative. The frequency of diarrhea has responded somewhat to the use of probiotics in the form of decreased nocturnal diarrhea. She still has diarrhea during the daytime, but this is fueled by solid food intake. One might consider using a low-dose Imodium for the latter. The patient is still on a soft, low-residue diet. I would continue this at least till the duration until her diarrhea ceases. The patient has pancytopenia. Hematology has still not evaluated the patient. This is urgent considering the fact today most likely her white count should be in the range of 2 possibly less. Alli Jackman DO, PhD MTDD
--- NOTE | 2017-04-16 12:42 | CP.PCM.PN ---
Subjective - Date & Time of Evaluation Date of Evaluation: 04/16/17 Time of Evaluation: 12:37 - Subjective Subjective: Medicine progress note for Dr. Browne/Dr. Haley service - Mingo Mccollumojhn PGY2 Patient seen and examined at bedside in conjunction with Dr. eWst (covering for Dr. Browne/Dr. Haley). Discussed current workup/results/plan with the patient and she is aware for the need for antibiotics due to UTI. Patient has a history of recurrent UTI's and on this admission required urological intervention. Currently on Meropenem per ID recommendations. Reports feeling better and has been tolerating PO intake with no adverse events. She denied chest pain, palpitations, SOB, abdominal pain, nausea,vomiting. A TCU evaluation is pending for physical therapy treatment. Presently encouraged patient to be out of bed to chair as tolerated. Objective - Vital Signs/Intake and Output Vital Signs (last 24 hours): Temp Pulse Resp BP Pulse Ox 98.2 F 74 18 112/54 L 97 04/16/17 05:57 04/16/17 10:00 04/16/17 05:57 04/16/17 05:57 04/16/17 05:57 Intake and Output: 04/16/17 04/16/17 06:59 18:59 Intake Total 4512 Output Total 600 Balance 3912 - Medications Medications: Current Medications Acetaminophen (Tylenol 325mg Tab) 650 mg PO Q4H PRN PRN Reason: Fever >100.4 F Last Admin: 04/15/17 21:59 Dose: 650 mg Ascorbic Acid (Vitamin C 500 Mg Tab) 500 mg PO DAILY [facility] Last Admin: 04/16/17 10:02 Dose: 500 mg Calcium Carbonate (Caltrate) 600 mg PO QID [facility] Last Admin: 04/16/17 10:02 Dose: 600 mg Diphenhydramine HCl (Benadryl) 25 mg PO HS PRN PRN Reason: Insomnia Last Admin: 04/15/17 22:02 Dose: 25 mg Ergocalciferol (Drisdol 50,000 Intl Units Cap) 1 cap PO Q7D [facility] Last Admin: 04/14/17 06:55 Dose: 1 cap Gabapentin (Neurontin) 300 mg PO TID [facility] PRN Reason: Protocol Last Admin: 04/16/17 10:03 Dose: 300 mg Meropenem 1g/NS 100mL IVPB (Meropenem 1g/Ns 100ml Ivpb) 1 gm in 100 mls @ 100 mls/hr IVPB Q12 [facility] PRN Reason: Protocol Stop: 04/18/17 10:01 Last Admin: 04/16/17 10:03 Dose: 100 mls/hr Multivitamins/Vitamin C 10 ml/Amino Acids/Electrolytes/Dextrose 2,010 mls @ 83 mls/hr IV .Q24H [facility] Stop: 04/18/17 17:59 Last Admin: 04/15/17 18:22 Dose: 83 mls/hr Fat Emulsion Intravenous (Intralipid 20%) 250 mls @ 21 mls/hr IV DAILY@1800 [facility] Stop: 04/18/17 17:59 Last Admin: 04/15/17 18:22 Dose: 21 mls/hr Albumin Human (Albumin Human 25% (25 Gm/100 Ml)) 100 mls @ 1 mls/min IVPB ONCE ONE Stop: 04/16/17 13:25 Calcium Gluconate 1,000 mg/ (Sodium Chloride) 110 mls @ 110 mls/hr IVPB ONCE ONE Stop: 04/16/17 12:44 Insulin Human Lispro (Humalog Low) 0 units SC ACHS [facility] PRN Reason: Protocol Last Admin: 04/16/17 08:32 Dose: 2 units Lactobacillus Acidophilus (Bacid Acidophilus) 1 cap PO TID [facility] Last Admin: 04/16/17 10:03 Dose: 1 cap Magnesium Oxide (Mag-Ox) 400 mg PO DAILY [facility] Last Admin: 04/16/17 10:02 Dose: 400 mg Mesalamine (Pentasa) 2,000 mg PO BID [facility] Stop: 04/17/17 23:59 Last Admin: 04/16/17 10:02 Dose: 2,000 mg Pantoprazole Sodium (Protonix Ec Tab) 20 mg PO 0600,1600 [facility] Last Admin: 04/16/17 05:23 Dose: 20 mg Phenazopyridine HCl (Pyridium) 200 mg PO TID [facility] Last Admin: 04/16/17 10:02 Dose: 200 mg Potassium Phos/Sodium Phos (Neutra-Phos) 1 pkt PO TID [facility] Last Admin: 04/16/17 10:04 Dose: 1 pkt Sertraline HCl (Zoloft) 100 mg PO DAILY [facility] Last Admin: 04/16/17 10:02 Dose: 100 mg Tamsulosin HCl (Flomax) 0.4 mg PO DAILY [facility] Last Admin: 04/16/17 10:03 Dose: 0.4 mg Thiamine HCl (Vitamin B1 Tab) 100 mg PO DAILY [facility] Last Admin: 04/16/17 10:02 Dose: 100 mg - Labs Labs: 04/16/17 07:42 04/16/17 07:42 PT 16.3 Seconds (9.9-11.8) H 04/12/17 05:20 INR 1.51 (0.93-1.08) H 04/12/17 05:20 APTT 41.4 Seconds (23.7-30.8) H 04/12/17 05:20 - Constitutional Appears: Non-toxic, No Acute Distress - Head Exam Head Exam: ATRAUMATIC, NORMAL INSPECTION, NORMOCEPHALIC - Eye Exam Eye Exam: EOMI, PERRL - ENT Exam ENT Exam: Mucous Membranes Moist - Neck Exam Neck Exam: Normal Inspection - Respiratory Exam Respiratory Exam: Clear to Ausculation Bilateral. absent: Rales, Rhonchi, Wheezes - Cardiovascular Exam Cardiovascular Exam: RRR, +S1, +S2. absent: Gallop, Rubs, Murmur - GI/Abdominal Exam GI & Abdominal Exam: Soft. absent: Distended, Firm, Guarding, Rigid, Tenderness , Rebound - Neurological Exam Neurological Exam: Alert, Awake, Oriented x3 - Psychiatric Exam Psychiatric exam: Normal Affect, Normal Mood - Skin Skin Exam: Dry, Intact, Normal Color, Warm Assessment and Plan - Assessment and Plan (Free Text) Plan: 71yo female with history of T2DM, nephrolithiasis, pyelonephritis, recurrent UTI 's, Crohn's disease and depression presented on 04/08 with fever and generalized weakness secondary to sepsis due to UTI. 1. Sepsis secondary to UTI - History of multiple resistant UTIs - Urine culture has been negative - Blood culture negative - CXR 04/07: no active disease - Currently on Meropenem 1gm q12h day 7 per ID recommendations - Tylenol 650mg po q6 prn fever > 100.4F - Renal US on 04/08 revealed severe R hydronephrosis secondary to 3.9cm stone in renal pelvis; mild left hydronephrosis secondary to partially obstructing 2cm stone in the renal pelvis (see full report) - CT abdomen/pelvis 04/09 revealed bilateral hydroureteronephrosis with no causative obstructing stone seen; extensive nonobstructing renal stones (see full report) - Abdominal x-ray 04/11: nephrolithiasis - Urology Dr. Horvath consulted and patient is POD#5 bilateral pigtail catheter insertion - Urology Dr. Horvath on board: will see patient outpatient and reculture urine and schedule for elective ESWL of obstructing stones - Flomax 0.4mg po daily - ID - Dr. Mckenna on board 2. Pancytopenia - patient has had prior bone marrow biopsy in 2012 - coupled with unintentional weight loss, pancytopenia is concerning for myelodysplastic syndrome - Heme/onc Dr. Wynn on board: repeat bone marrow biopsy to be done outpatient 3. Intractable diarrhea - CT abdomen/pelvis 04/09: findings suspicious for marked enterocolitis, moderate abdominal and pelvic free fluid, small b/l pleural effusions and diffuse anasarca - C. Diff negative x 2 - Stool studies and stool electrolytes pending - Florastor 1 cap po tid - ID Dr. Mckenna on board - GI Dr. Jackman on board 4. Electrolyte abnormalities - Will continue to monitor and replete electrolytes as indicated - Patient started on TPN gtt - Drisdol 50,000U 1 cap po q7day 5. NIDDM - HgbA1: 5.8 - Accucheck ACHS - RISS low ACHS - Neurontin 300mg po tid 5. Hx of Crohn's Disease - Pyridium 200mg po tid - Pentasa 2000mg po bid - GI consulted - Dr. Jackman - diarrhea likely secondary to antibiotics and not an acute Crohn's flare up; Will continue florastor as recommended 6. Hx of Depression - Zoloft 100mg po daily - Benadryl 25mg po hs prn insomnia 7. GI/DVT Prophylaxis -protonix/SCD's Disposition: TCU evaluation for deconditioning Patient seen and case discussed with attending, Dr. West covering for Dr. Browne/Dr. Haley
--- NOTE | 2017-04-16 15:52 | CP.PCM.PN ---
Subjective - Date & Time of Evaluation Date of Evaluation: 04/16/17 Time of Evaluation: 10:45 - Subjective Subjective: Still having loose bowel movement. No abdominal pain, no fevers overnight. Objective - Vital Signs/Intake and Output Vital Signs (last 24 hours): Temp Pulse Resp BP Pulse Ox 98.2 F 67 18 112/54 L 97 04/16/17 05:57 04/16/17 05:58 04/16/17 05:57 04/16/17 05:57 04/16/17 05:57 Intake and Output: 04/16/17 04/16/17 06:59 18:59 Intake Total 4512 Output Total 600 Balance 3912 - Medications Medications: Current Medications Acetaminophen (Tylenol 325mg Tab) 650 mg PO Q4H PRN PRN Reason: Fever >100.4 F Last Admin: 04/15/17 21:59 Dose: 650 mg Ascorbic Acid (Vitamin C 500 Mg Tab) 500 mg PO DAILY [facility] Last Admin: 04/15/17 10:15 Dose: 500 mg Calcium Carbonate (Caltrate) 600 mg PO QID [facility] Last Admin: 04/15/17 22:00 Dose: 600 mg Diphenhydramine HCl (Benadryl) 25 mg PO HS PRN PRN Reason: Insomnia Last Admin: 04/15/17 22:02 Dose: 25 mg Ergocalciferol (Drisdol 50,000 Intl Units Cap) 1 cap PO Q7D [facility] Last Admin: 04/14/17 06:55 Dose: 1 cap Gabapentin (Neurontin) 300 mg PO TID [facility] PRN Reason: Protocol Last Admin: 04/15/17 18:21 Dose: 300 mg Meropenem 1g/NS 100mL IVPB (Meropenem 1g/Ns 100ml Ivpb) 1 gm in 100 mls @ 100 mls/hr IVPB Q12 [facility] PRN Reason: Protocol Stop: 04/18/17 10:01 Last Admin: 04/15/17 22:00 Dose: 100 mls/hr Multivitamins/Vitamin C 10 ml/Amino Acids/Electrolytes/Dextrose 2,010 mls @ 83 mls/hr IV .Q24H [facility] Stop: 04/18/17 17:59 Last Admin: 04/15/17 18:22 Dose: 83 mls/hr Fat Emulsion Intravenous (Intralipid 20%) 250 mls @ 21 mls/hr IV DAILY@1800 [facility] Stop: 04/18/17 17:59 Last Admin: 04/15/17 18:22 Dose: 21 mls/hr Insulin Human Lispro (Humalog Low) 0 units SC ACHS [facility] PRN Reason: Protocol Last Admin: 04/15/17 22:41 Dose: Not Given Lactobacillus Acidophilus (Bacid Acidophilus) 1 cap PO TID [facility] Last Admin: 04/15/17 18:21 Dose: 1 cap Magnesium Oxide (Mag-Ox) 400 mg PO DAILY [facility] Last Admin: 04/15/17 10:14 Dose: 400 mg Mesalamine (Pentasa) 2,000 mg PO BID [facility] Stop: 04/17/17 23:59 Last Admin: 04/15/17 18:21 Dose: 2,000 mg Pantoprazole Sodium (Protonix Ec Tab) 20 mg PO 0600,1600 [facility] Last Admin: 04/16/17 05:23 Dose: 20 mg Phenazopyridine HCl (Pyridium) 200 mg PO TID [facility] Last Admin: 04/15/17 18:21 Dose: 200 mg Potassium Phos/Sodium Phos (Neutra-Phos) 1 pkt PO TID [facility] Last Admin: 04/15/17 18:21 Dose: 1 pkt Sertraline HCl (Zoloft) 100 mg PO DAILY [facility] Last Admin: 04/15/17 10:14 Dose: 100 mg Tamsulosin HCl (Flomax) 0.4 mg PO DAILY [facility] Last Admin: 04/15/17 10:14 Dose: 0.4 mg Thiamine HCl (Vitamin B1 Tab) 100 mg PO DAILY [facility] Last Admin: 04/15/17 10:15 Dose: 100 mg - Labs Labs: 04/15/17 06:00 04/15/17 06:00 PT 16.3 Seconds (9.9-11.8) H 04/12/17 05:20 INR 1.51 (0.93-1.08) H 04/12/17 05:20 APTT 41.4 Seconds (23.7-30.8) H 04/12/17 05:20 - Constitutional Appears: Non-toxic, No Acute Distress - Head Exam Head Exam: NORMAL INSPECTION - ENT Exam ENT Exam: Mucous Membranes Moist - Neck Exam Neck Exam: absent: Lymphadenopathy, Meningismus - Respiratory Exam Respiratory Exam: Decreased Breath Sounds - Cardiovascular Exam Cardiovascular Exam: +S1, +S2 - GI/Abdominal Exam GI & Abdominal Exam: Soft. absent: Tenderness Assessment and Plan - Assessment and Plan (Free Text) Plan: Assessment severe sepsis probably due to urinary tract infection in a patient with a history of nephrolithiasis S/P pigtail catheter placement Diarrhea, consider antibiotic-associated history of right sided pyelonephritis associated with nephrolithiasis with E. faecalis Crohn's disease DM history of pyelonephritis bilateral nephrolithiasis S/P cholecystectomy S/P tubal ligation Plan continue Merrem (day 8, total day 9 of antibiotics); urine cx showing 2 organisms and the lab is unable to identify the organisms; CT A/P showing bilateral hydronephrosis - she is S/P pigtail catheter placement - should plan on 10-14 days of antibiotics - can d/c antibiotics by tomorrow stool for C. diff. is negative will continue to monitor clinically discussed with Dr. Browne previously
[2017-04-16] MEDS: Fat Emulsion 20% IV 250 ML IV SCH (19:29)
[2017-04-17 06:02] LABS: BASO # 0.02 K/mm3 (0.0-2.0); BASO % 1.1 % (0.0-3.0); EOS # 0.1 (0.0-0.7); EOS % 4.8 % (1.5-5.0); GRAN # 1.24 (1.4-6.5); GRAN % 65.5 % (50.0-68.0); HEMOGLOBIN 8.7 g/dL (12.0-16.0); LYMPH # 0.4 (1.2-3.4); LYMPH % 19.6 % (22.0-35.0); MEAN CELL VOLUME 98.6 fl (80.0-105.0); MEAN CORPUSCULAR HEMOGLOBIN 30.9 pg (25.0-35.0); MEAN CORPUSCULAR HGB CONC 31.3 g/dl (31.0-37.0); MEAN PLATELET VOLUME 10.4 fl (7.0-11.0); MONO # 0.2 (0.1-0.6); PLATELET COUNT 69 10^3/uL (120.0-450.0); RBC 2.82 10^6/uL (3.5-6.1); RED CELL DISTRIBUTION WIDTH 15.3 % (11.5-14.5)
[2017-04-17] MEDS: Pantoprazole 20 mg EC Tab PO SCH (06:08)
[2017-04-17 06:13] LABS: WHITE BLOOD COUNT 1.9 10^3/ul (4.5-11.0)
[2017-04-17 06:47] LABS: ALB/GLOB RATIO 0.7 (1.1-1.8); ALBUMIN 2.2 g/dL (3.0-4.8); ALT/SGPT 29 U/L (7-56); AST/SGOT 38 U/L (15-39); BLOOD UREA NITROGEN 9 mg/dL (7-21); CALCIUM 7.1 mg/dL (8.4-10.5); GFR AFRICAN-AMERICAN > 60; GFR NON-AFRICAN AMERICAN > 60; MAGNESIUM 1.8 mg/dL (1.7-2.2)
--- NOTE | 2017-04-17 06:48 | CP.PCM.PN ---
Objective - Vital Signs/Intake and Output Vital Signs (last 24 hours): Temp Pulse Resp BP Pulse Ox 97.1 F L 76 19 112/62 97 04/17/17 06:00 04/17/17 06:00 04/17/17 06:00 04/17/17 06:00 04/17/17 06:00 Intake and Output: 04/16/17 04/17/17 18:59 06:59 Intake Total 1966 Balance 1966 - Medications Medications: Current Medications Acetaminophen (Tylenol 325mg Tab) 650 mg PO Q4H PRN PRN Reason: Fever >100.4 F Last Admin: 04/16/17 19:24 Dose: 650 mg Ascorbic Acid (Vitamin C 500 Mg Tab) 500 mg PO DAILY [facility] Last Admin: 04/16/17 10:02 Dose: 500 mg Calcium Carbonate (Caltrate) 600 mg PO QID [facility] Last Admin: 04/16/17 22:14 Dose: 600 mg Diphenhydramine HCl (Benadryl) 25 mg PO HS PRN PRN Reason: Insomnia Last Admin: 04/15/17 22:02 Dose: 25 mg Ergocalciferol (Drisdol 50,000 Intl Units Cap) 1 cap PO Q7D [facility] Last Admin: 04/14/17 06:55 Dose: 1 cap Gabapentin (Neurontin) 300 mg PO TID [facility] PRN Reason: Protocol Last Admin: 04/16/17 19:24 Dose: 300 mg Meropenem 1g/NS 100mL IVPB (Meropenem 1g/Ns 100ml Ivpb) 1 gm in 100 mls @ 100 mls/hr IVPB Q12 [facility] PRN Reason: Protocol Stop: 04/18/17 10:01 Last Admin: 04/16/17 21:58 Dose: 100 mls/hr Multivitamins/Vitamin C 10 ml/Amino Acids/Electrolytes/Dextrose 2,010 mls @ 83 mls/hr IV .Q24H [facility] Stop: 04/18/17 17:59 Last Admin: 04/16/17 19:00 Dose: 83 mls/hr Fat Emulsion Intravenous (Intralipid 20%) 250 mls @ 21 mls/hr IV DAILY@1800 [facility] Stop: 04/18/17 17:59 Last Admin: 04/16/17 19:29 Dose: 21 mls/hr Insulin Human Lispro (Humalog Low) 0 units SC ACHS [facility] PRN Reason: Protocol Last Admin: 04/16/17 22:21 Dose: Not Given Lactobacillus Acidophilus (Bacid Acidophilus) 1 cap PO TID [facility] Last Admin: 04/16/17 19:19 Dose: 1 cap Mesalamine (Pentasa) 2,000 mg PO BID [facility] Stop: 04/17/17 23:59 Last Admin: 04/16/17 19:19 Dose: 2,000 mg Pantoprazole Sodium (Protonix Ec Tab) 20 mg PO 0600,1600 [facility] Last Admin: 04/17/17 06:08 Dose: 20 mg Phenazopyridine HCl (Pyridium) 200 mg PO TID [facility] Last Admin: 04/16/17 19:19 Dose: 200 mg Potassium Phos/Sodium Phos (Neutra-Phos) 1 pkt PO TID [facility] Last Admin: 04/16/17 19:22 Dose: 1 pkt Sertraline HCl (Zoloft) 100 mg PO DAILY [facility] Last Admin: 04/16/17 10:02 Dose: 100 mg Tamsulosin HCl (Flomax) 0.4 mg PO DAILY [facility] Last Admin: 04/16/17 10:03 Dose: 0.4 mg Thiamine HCl (Vitamin B1 Tab) 100 mg PO DAILY [facility] Last Admin: 04/16/17 10:02 Dose: 100 mg - Labs Labs: 04/17/17 05:50 04/16/17 07:42 PT 16.3 Seconds (9.9-11.8) H 04/12/17 05:20 INR 1.51 (0.93-1.08) H 04/12/17 05:20 APTT 41.4 Seconds (23.7-30.8) H 04/12/17 05:20
[2017-04-17] MEDS: Insulin Lispro (humaLOG) LOW Coverage SC SCH ×2 (08:43→12:07)
--- NOTE | 2017-04-17 08:47 | PN ---
ADDENDUM The patient is seen in room 263, bed 2. The patient was seen and examined with medical office asst. The patient's vital signs, diagnostic data reviewed. This is addendum to the progress note done by the medical office asst. Please review the progress note by the medical office asst for further details. IMPRESSION: 1. Severe sepsis secondary to urinary tract infection with history of nephrolithiasis. 2. Possible antibiotic-associated diarrhea. 3. History of right-sided pyelonephritis and nephrolithiasis. 4. Pancytopenia. 5. Questionable possible neutropenic sepsis. 6. Status post fever. 7. Hypotension. 8. Leukopenia, anemia, thrombocytopenia, pancytopenia. 9. Mild coagulopathy. 10. Hypocalcemia. 11. Hypophosphatemia. 12. Protein malnutrition and hypoalbuminemia. 13. Hypovitaminosis D. 14. Hypokalemia and hypomagnesemia. 15. Microscopic hematuria, pyuria, bacteruria. 16. Nephrolithiasis with left-sided ureteral stent placement. 17. Enterocolitis. 18. Bilateral pleural effusion with diffuse anasarca and abdominopelvic ascites. 19. Bilateral hydroureteronephrosis. 20. Extensive non-obstructing nephrolithiasis. 21. Sepsis. 22. Pancytopenia. 23. Diarrhea. 24. Type 2 diabetes mellitus. 25. History of Crohn's disease, depression. 26. Recurrent nephrolithiasis. 27. *------*. 28. Status post bilateral pigtail stent placed for *------* bilateral hydronephrosis and nephrolithiasis. PLAN: At this time, patient has been ordered repeat labs. The patient is given a dose of albumin. The patient is on Bacid 1 capsule 3 times a day, Benadryl 25 at bedtime p.r.n. A dose of calcium gluconate is also given. The patient is started on calcium carbonate 600 four times a day. The patient is on IV PPN *------* 50,000 units weekly, Flomax 0.4 mg daily, Humalog, low dose sliding scale coverage. The patient's p.o. magnesium will be stopped because of diarrhea. The patient is on meropenem 1 g IV q. 12, Neurontin 300 mg 3 times a day, Neutra-Phos 1 tablet 3 times a day, Pentasa 2000 mg twice a day, Protonix 20 twice a day, Pyridium 200 three times a day, Protonix 20 twice a day, Tylenol 650 q. 4 p.r.n., thiamine 100 mg daily, vitamin C 500 mg daily, Zoloft 100 mg daily. The patient was seen and examined with the medical office asst. For further details, please refer to the progress note done by the medical office asst. Dictated and electronically signed, not read. Signing off, Fernando West MD
[2017-04-17] MEDS: Mesalamine ER Cap 500 MG PO SCH (10:01)
[2017-04-17] MEDS: Lactobacillus Acidophilus 500 MU Cap PO SCH (10:02)
[2017-04-17] MEDS: Potassium & Sodium Phosphate PO SCH (10:02)
[2017-04-17] MEDS: Meropenem 1g/NS 100mL IVPB 1 GM/100 ML PIGGYBACK IVPB SCH (10:03)
[2017-04-17 12:33] VITALS: BP 103/55; PULSE 75; RESP 20; TEMP 98.3
--- NOTE | 2017-04-17 12:59 | PN ---
DATE: 04/17/2017 SUBJECTIVE: I examined the patient this morning. She is a 71-year-old white female with a past medical history of enterocolitis, diabetes and recurrent kidney stones. The patient was admitted with an obstructed urinary tract, now has 2 pigtail stents placed by Dr. Horvath. The patient had refractory diarrhea on admission, which over a period of her clinical course for the past couple of days has dissipated as was a degree of abdominal cramping. There is no rectal bleeding or hematemesis. The patient is still on antibiotics for sepsis and an obstructed urinary tract. The patient does not seem to have symptoms of her usual enterocolitis flares, therefore no steroids were warranted in this particular case. She seems to be doing well on her current regimen. PHYSICAL EXAMINATION VITAL SIGNS: I reviewed this patient's vital signs. HEENT: Noncontributory. LUNGS: Decreased breath sounds, basilar. HEART: Regular rhythm. ABDOMEN: Soft. No tenderness elicited in any quadrant. LABORATORY DATA: I reviewed this patient's laboratory data. As indicated previously, the patient has had a gradual drop in especially her white count with counts of yesterday 2.0. H and H is stable at a range of roughly 9/30 with a platelet count of 79. Hematology consult is still pending regarding the issue of pancytopenia. OVERALL ASSESSMENT: This is a 71-year-old white female admitted with signs and symptoms of obstructed urinary tract now has pigtail stents placed. Started on antibiotic therapy as per ID. The diarrhea issue would probably continue and will probably taper off somewhat, however, as long as she is on antibiotics that will be a diarrhea component. She is on probiotic therapy. The volume and frequency of the loose bowel movements has decreased overtime and studies of stool have been C. diff negative. One may use Imodium on a p.r.n. basis as indicated in my note yesterday. Note that there are no signs or symptoms of enterocolitis in this particular scenario. Note that also at home she takes Pentasa 500 mg tablets 4 b.i.d. for enterocolitis prophylaxis. The pancytopenia issue will be addressed by hematology sometime later on this morning. This was addressed multiple times in my notes over the past couple of days. Dietary levin that she should probably be on a soft low-residue diet, advised her not to push the volume because this may potentiate diarrhea. I will sign off the case today, please recall if you wish me to see the patient again. Alli Jackman DO, PhD [facility]
--- NOTE | 2017-04-17 16:02 | CP.PCM.PN ---
Subjective - Date & Time of Evaluation Date of Evaluation: 04/17/17 Time of Evaluation: 10:50 - Subjective Subjective: Loose bowel movement is a little better today, no fevers, no abdominal pain. Objective - Vital Signs/Intake and Output Vital Signs (last 24 hours): Temp Pulse Resp BP Pulse Ox 97.1 F L 76 19 112/62 97 04/17/17 06:00 04/17/17 06:00 04/17/17 06:00 04/17/17 06:00 04/17/17 06:00 Intake and Output: 04/17/17 04/17/17 06:59 18:59 Intake Total 1966 Balance 1966 - Medications Medications: Current Medications Acetaminophen (Tylenol 325mg Tab) 650 mg PO Q4H PRN PRN Reason: Fever >100.4 F Last Admin: 04/16/17 19:24 Dose: 650 mg Ascorbic Acid (Vitamin C 500 Mg Tab) 500 mg PO DAILY [facility] Last Admin: 04/16/17 10:02 Dose: 500 mg Calcium Carbonate (Caltrate) 600 mg PO QID [facility] Last Admin: 04/16/17 22:14 Dose: 600 mg Diphenhydramine HCl (Benadryl) 25 mg PO HS PRN PRN Reason: Insomnia Last Admin: 04/15/17 22:02 Dose: 25 mg Ergocalciferol (Drisdol 50,000 Intl Units Cap) 1 cap PO Q7D [facility] Last Admin: 04/14/17 06:55 Dose: 1 cap Gabapentin (Neurontin) 300 mg PO TID [facility] PRN Reason: Protocol Last Admin: 04/16/17 19:24 Dose: 300 mg Meropenem 1g/NS 100mL IVPB (Meropenem 1g/Ns 100ml Ivpb) 1 gm in 100 mls @ 100 mls/hr IVPB Q12 [facility] PRN Reason: Protocol Stop: 04/18/17 10:01 Last Admin: 04/16/17 21:58 Dose: 100 mls/hr Multivitamins/Vitamin C 10 ml/Amino Acids/Electrolytes/Dextrose 2,010 mls @ 83 mls/hr IV .Q24H [facility] Stop: 04/18/17 17:59 Last Admin: 04/16/17 19:00 Dose: 83 mls/hr Fat Emulsion Intravenous (Intralipid 20%) 250 mls @ 21 mls/hr IV DAILY@1800 [facility] Stop: 04/18/17 17:59 Last Admin: 04/16/17 19:29 Dose: 21 mls/hr Insulin Human Lispro (Humalog Low) 0 units SC ACHS [facility] PRN Reason: Protocol Last Admin: 04/17/17 08:43 Dose: 3 units Lactobacillus Acidophilus (Bacid Acidophilus) 1 cap PO TID [facility] Last Admin: 04/16/17 19:19 Dose: 1 cap Mesalamine (Pentasa) 2,000 mg PO BID [facility] Stop: 04/17/17 23:59 Last Admin: 04/16/17 19:19 Dose: 2,000 mg Pantoprazole Sodium (Protonix Ec Tab) 20 mg PO 0600,1600 [facility] Last Admin: 04/17/17 06:08 Dose: 20 mg Phenazopyridine HCl (Pyridium) 200 mg PO TID [facility] Last Admin: 04/16/17 19:19 Dose: 200 mg Potassium Phos/Sodium Phos (Neutra-Phos) 1 pkt PO TID [facility] Last Admin: 04/16/17 19:22 Dose: 1 pkt Sertraline HCl (Zoloft) 100 mg PO DAILY [facility] Last Admin: 04/16/17 10:02 Dose: 100 mg Tamsulosin HCl (Flomax) 0.4 mg PO DAILY [facility] Last Admin: 04/16/17 10:03 Dose: 0.4 mg Thiamine HCl (Vitamin B1 Tab) 100 mg PO DAILY [facility] Last Admin: 04/16/17 10:02 Dose: 100 mg - Labs Labs: 04/17/17 05:50 04/17/17 05:50 PT 16.3 Seconds (9.9-11.8) H 04/12/17 05:20 INR 1.51 (0.93-1.08) H 04/12/17 05:20 APTT 41.4 Seconds (23.7-30.8) H 04/12/17 05:20 - Constitutional Appears: Non-toxic, No Acute Distress - Head Exam Head Exam: NORMAL INSPECTION - ENT Exam ENT Exam: Mucous Membranes Moist - Neck Exam Neck Exam: absent: Lymphadenopathy, Meningismus - Respiratory Exam Respiratory Exam: Decreased Breath Sounds - Cardiovascular Exam Cardiovascular Exam: +S1, +S2 - GI/Abdominal Exam GI & Abdominal Exam: Soft. absent: Tenderness Assessment and Plan - Assessment and Plan (Free Text) Plan: Assessment severe sepsis probably due to urinary tract infection in a patient with a history of nephrolithiasis S/P pigtail catheter placement Diarrhea, consider antibiotic-associated history of right sided pyelonephritis associated with nephrolithiasis with E. faecalis Crohn's disease DM history of pyelonephritis bilateral nephrolithiasis S/P cholecystectomy S/P tubal ligation Plan continue Merrem (total day 10 of antibiotics); urine cx showing 2 organisms and the lab is unable to identify the organisms; CT A/P showing bilateral hydronephrosis - she is S/P pigtail catheter placement - should plan on 10-14 days of antibiotics - we can d/c antibiotics today stool for C. diff. is negative discussed with Dr. Browne previously
--- NOTE | 2017-04-17 20:51 | CP.PCM.DIS ---
Provider - Provider Date of Admission: 04/08/17 01:07 Attending physician: Oleg Browne MD Consults: Urology: Dr. Horvath ID: Dr. Mckenna GI: Dr. Chadwick Heme: Dr. Wynn/Verónica Time Spent in preparation of Discharge (in minutes): 45 Hospital Course - Lab Results Lab Results: Micro Results 04/14/17 03:00 Stool Stool Culture - Final NO SALMONELLA, SHIGELLA OR CAMPYLOBACTER ISOLATED. 04/14/17 03:00 Stool C. difficile Antigen & Toxin A,B (M - Final 04/09/17 08:30 Blood-Venous Blood Culture - Final NO GROWTH AFTER 5 DAYS 04/09/17 08:30 Blood-Venous Gram Stain - Final TEST NOT PERFORMED 04/09/17 08:30 Blood-Venous Blood Culture - Final NO GROWTH AFTER 5 DAYS 04/09/17 08:30 Blood-Venous Gram Stain - Final TEST NOT PERFORMED 04/12/17 02:00 Stool C. difficile Antigen & Toxin A,B (M - Final 04/11/17 13:00 Urine Urine Culture - Final No Growth (<1,000 CFU/ML) 04/09/17 12:45 Urine,Clean Catch Urine Culture - Final No Growth (<1,000 CFU/ML) Most Recent Lab Values WBC 1.9 10^3/ul (4.5-11.0) L* 04/17/17 05:50 RBC 2.82 10^6/uL (3.5-6.1) L 04/17/17 05:50 Hgb 8.7 g/dL (12.0-16.0) L 04/17/17 05:50 Hct 27.8 % (36.0-48.0) L 04/17/17 05:50 MCV 98.6 fl (80.0-105.0) D 04/17/17 05:50 MCH 30.9 pg (25.0-35.0) 04/17/17 05:50 MCHC 31.3 g/dl (31.0-37.0) 04/17/17 05:50 RDW 15.3 % (11.5-14.5) H 04/17/17 05:50 Plt Count 69 10^3/uL (120.0-450.0) L 04/17/17 05:50 MPV 10.4 fl (7.0-11.0) 04/17/17 05:50 Gran % 65.5 % (50.0-68.0) 04/17/17 05:50 Lymph % (Auto) 19.6 % (22.0-35.0) L 04/17/17 05:50 Dillon % (Auto) 9.0 % (1.0-6.0) H 04/17/17 05:50 Eos % (Auto) 4.8 % (1.5-5.0) 04/17/17 05:50 Baso % (Auto) 1.1 % (0.0-3.0) 04/17/17 05:50 Gran # 1.24 (1.4-6.5) L 04/17/17 05:50 Lymph # 0.4 (1.2-3.4) L 04/17/17 05:50 Dillon # 0.2 (0.1-0.6) 04/17/17 05:50 Eos # 0.1 (0.0-0.7) 04/17/17 05:50 Baso # 0.02 K/mm3 (0.0-2.0) 04/17/17 05:50 Neutrophils % (Manual) 61 % (50.0-70.0) 04/15/17 06:00 Band Neutrophils % 2 % (0-2) 04/07/17 23:30 Lymphocytes % (Manual) 32 % (22.0-35.0) 04/15/17 06:00 Monocytes % (Manual) 3 % (1.0-6.0) 04/15/17 06:00 Eosinophils % (Manual) 3 % (0.0-3.0) 04/15/17 06:00 Myelocytes % 1 % 04/15/17 06:00 Platelet Evaluation Low (NORMAL) 04/15/17 06:00 Retic Count 1.88 % (0.5-1.5) H 04/10/17 05:30 PT 16.3 Seconds (9.9-11.8) H 04/12/17 05:20 INR 1.51 (0.93-1.08) H 04/12/17 05:20 APTT 41.4 Seconds (23.7-30.8) H 04/12/17 05:20 pCO2 21 mm/Hg (35-45) L 04/09/17 12:15 pO2 149.0 mm/Hg (80-100) H 04/09/17 12:15 HCO3 11.1 mmol/L (21-28) L 04/09/17 12:15 ABG pH 7.33 (7.35-7.45) L 04/09/17 12:15 ABG Total CO2 11.7 mmol.L (22-28) L 04/09/17 12:15 ABG O2 Saturation 99.5 % (95-98) H 04/09/17 12:15 ABG Base Excess -13.3 mmol/L (-2.0-3.0) L 04/09/17 12:15 ABG Potassium 2.9 mmol/L (3.6-5.2) L 04/09/17 12:15 VBG pH 7.31 (7.32-7.43) L 04/09/17 08:10 VBG pCO2 27.0 (40-60) L 04/09/17 08:10 VBG HCO3 13.6 mmol/l (21-28) L 04/09/17 08:10 VBG Total CO2 14.4 mmol.L (22-28) L 04/09/17 08:10 VBG O2 Sat (Calc) 91.3 % (40-65) H 04/09/17 08:10 VBG Base Excess -11.0 mmol/L (0.0-2.0) L 04/09/17 08:10 VBG Potassium 3.8 mmol/L (3.6-5.2) 04/09/17 08:10 Sodium 148.0 mmol/L (132-148) 04/09/17 12:15 Chloride 118.0 mmol/L (98-107) H 04/09/17 12:15 Glucose 185 mg/dl (65-105) H 04/09/17 12:15 Lactate 2.0 mmol/L (0.7-2.1) 04/09/17 12:15 FiO2 28.0 % 04/09/17 12:15 Sodium 141 mmol/L (132-148) 04/17/17 05:50 Potassium 4.4 mmol/L (3.6-5.0) 04/17/17 05:50 Chloride 114 mmol/L (95-110) H 04/17/17 05:50 Carbon Dioxide 22 mmol/L (21-33) 04/17/17 05:50 Anion Gap 9 (10-20) L 04/17/17 05:50 BUN 9 mg/dL (7-21) 04/17/17 05:50 Creatinine 0.7 mg/dL (0.5-1.4) 04/17/17 05:50 Est GFR ( Amer) > 60 04/17/17 05:50 Est GFR (Non-Af Amer) > 60 04/17/17 05:50 POC Glucose (mg/dL) 348 mg/dL (65-110) H 04/17/17 11:24 Random Glucose 276 mg/dL (70-110) H 04/17/17 05:50 Hemoglobin A1c 5.8 % (4.2-6.5) 04/08/17 05:00 Calcium 7.1 mg/dL (8.4-10.5) L 04/17/17 05:50 Phosphorus 2.8 mg/dL (2.5-4.5) 04/17/17 05:50 Magnesium 1.8 mg/dL (1.7-2.2) 04/17/17 05:50 Iron 12 ug/dL (45-180) L 04/10/17 05:30 TIBC 144 ug/dL (265-497) L 04/10/17 05:30 % Saturation 8 % (20-55) L 04/10/17 05:30 Transferrin < 80.00 mg/dL (206-381) L 04/10/17 05:30 Ferritin 191.0 ng/mL 04/10/17 05:30 Total Bilirubin 0.8 mg/dL (0.2-1.3) 04/17/17 05:50 AST 38 U/L (15-39) 04/17/17 05:50 ALT 29 U/L (7-56) 04/17/17 05:50 Alkaline Phosphatase 88 U/L (38-133) 04/17/17 05:50 Total Protein 5.4 g/dL (5.8-8.3) L 04/17/17 05:50 Albumin 2.2 g/dL (3.0-4.8) L 04/17/17 05:50 Globulin 3.1 gm/dL 04/17/17 05:50 Albumin/Globulin Ratio 0.7 (1.1-1.8) L 04/17/17 05:50 Vitamin B12 > 1000 pg/mL (239-931) H 04/10/17 05:30 25-OH Vitamin D Total < 12.8 NG/ML (30.0-100.0) L 04/13/17 13:00 Folate 14.1 ng/mL 04/10/17 05:30 Arterial Blood Potassium 2.9 mmol/L (3.6-5.2) L 04/09/17 12:15 Venous Blood Potassium 3.8 mmol/L (3.6-5.2) 04/09/17 08:10 Urine Color Yellow (YELLOW) 04/08/17 00:30 Urine Appearance Turbid (CLEAR) 04/08/17 00:30 Urine pH 6.0 (4.7-8.0) 04/08/17 00:30 Ur Specific [place] 1.010 (1.005-1.035) 04/08/17 00:30 Urine Protein Negative mg/dL (<30 mg/dL) 04/08/17 00:30 Urine Glucose (UA) Negative mg/dL (NEGATIVE) 04/08/17 00:30 Urine Ketones Negative mg/dL (NEGATIVE) 04/08/17 00:30 Urine Blood Large (NEGATIVE) H 04/08/17 00:30 Urine Nitrate Positive (NEGATIVE) H 04/08/17 00:30 Urine Bilirubin Negative (NEGATIVE) 04/08/17 00:30 Urine Urobilinogen 0.2 E.U./dL (<1 E.U./dL) 04/08/17 00:30 Ur Leukocyte Esterase Large Fifi/uL (NEGATIVE) H 04/08/17 00:30 Urine RBC 10 - 15 /hpf (0-2) 04/08/17 00:30 Urine WBC Tntc /hpf (0-6) 04/08/17 00:30 Ur Epithelial Cells 3 - 4 /hpf (0-5) 04/08/17 00:30 Urine Bacteria Mod (NEG) 04/08/17 00:30 C. difficile Tox B Gene Not detected (Not Detected) 04/14/17 03:00 Hepatitis A IgM Ab Negative (NEGATIVE) 04/11/17 06:30 Hep Bs Antigen Negative (NEGATIVE) 04/11/17 06:30 Hep B Core IgM Ab Negative (NEGATIVE) 04/11/17 06:30 Hepatitis C Antibody Negative (NEGATIVE) 04/11/17 06:30 - Hospital Course Hospital Course: Admittin yo female PMHx of DM type 2, nephrolithiasis, pyelonephritis, recurrent UTI' s, hypokalemia, Crohn's disease, depression presents to ED with fever and generalized weakness since the day before admission. Patient reports she had elevated temps at home and had chills and night sweats. She denied dysuria or burning on urination but reported "very hot" urine and malodor. She also reported incontinence and that she wears a diaper. She denied any acute headache , dizziness, chest pain, palpitations, SOB, cough, abd pain, nausea, vomiting, bowel complaints, swelling in her legs. Patient did complain of pain in her legs bilaterally, an unsteady gait, and a nonproductive cough. Throughout the course of her stay, the following imaging was performed: 04/07 - CXR for sepsis: NAD 04/08 - Renal U/s: b/l hydronephrosis with 3.9 cm R stone and .9cm L stone ( ureters) 04/09 - Abd CT: Enterocolitis. Also showed nephrolithiasis already seen on renal u/s 04/11 - Retrograde Pyelogram: Showed stents in L side ureter 04/11 - Abd XR for stones: Showed b/l uteric stones Ms. Cloud was treated for her obstructive nephrolithiasis with Merepenem and surgically a stent was placed in the left ureter. Ms. Cloud was noted to have profuse watery diarrhea that was intractible, and it was determined that this was most likely 2/2 antibiotic treatment. Her urine and bloodcultures showed no growth, but it was still determined that the risk of d/cing Merrem in a septic patient outweighed the benefit of controlling her diarrhea. C.Diff was negative X2. Patient's diarrhea ultimately improved and she was allowed an advanced soft diet. Patient was stabilized before discharge and was instructed to follow up outpatient. Discharge Exam - Head Exam Head Exam: NORMAL INSPECTION - Additional Findings Additional findings: VS as below Constitutional: a&o x 4, nad Head and Neck: neck supple, no jvd, trachea midline, carotid midline, no cervical/head mass Eyes: varun, nonicteric sclera, eom intact ENT: auditory acuity grossly intact, throat not congested, no nasal deformity Cardio: rrr, no m/r/g, no carotid bruit, nml s1, s2 Pulm: no accessory muscle use, equal nml breath sounds bilaterally, ctab Abd: s/nt/nd, nbs x 4 q, no palpable masses Derm: no rashes, no ulcers, no lesions Extr: no edema, no cyanosis, no calf tenderness, no lesions, no varicosities Neuro: cn II-XII grossly intact, ue and le 5/5 muscle strength bilaterally, no los ue, le bilaterally and core Discharge Plan - Discharge Medications Prescriptions: Ascorbic Acid [Vitamin C 500 mg Tab] 500 mg PO DAILY 30 Days Ergocalciferol [Drisdol 50,000 Intl Units Cap] 1 cap PO Q7D #30 cap Lactobacillus Acidophilus [Bacid Acidophilus] 1 cap PO TID 30 Days Thiamine [Vitamin B1 Tab] 100 mg PO DAILY #30 tab - Follow Up Plan Condition: STABLE Disposition: HOME/ ROUTINE Instructions: Rotavirus Infection (DC), Rotavirus Infection (GEN), Urinary Tract Infection in Women (DC), Urinary Tract Infection in Men (DC), Acute Pyelonephritis (DC), Acute Pyelonephritis (GEN), Dysuria (GEN), Nutrition Tips for Relief of Diarrhea (DC), Nutrition Tips for Relief of Diarrhea (GEN) Additional Instructions: Patient is stable for discharge as per hospitalist Dr. Browne Patient to follow up with PMD Dr. Browne within 7 days and to follow up with GI Dr. Jackman within 10 days. Patient to also followup with Urology Dr. Horvath within 2 weeks and Heme/Oncology Dr. Wynn within 2 weeks. Patient to resume home medications and take additional medications as prescribed : -Vitamin C 500mg po daily -Drisdol 1 cap po weekly -Florastor 1 cap po tid -Thiamine 100mg po daily If symptoms persist or worsen, patient to visit ER immediately. Instructions discussed in detail with patient who understands and agrees.
== END 2017-04-17 14:27 | disposition home or self-care (01) | DRG 872 ==
LOC: ED 22:37 → ERH 04-08 01:07 → 5RSO 04-08 02:48 → 2RNO 04-09 14:02
PROVIDERS: ADMIT Internal Medicine; ATTEND Internal Medicine
PROC: 0T788DZ Dilation of Bilateral Ureters with Intraluminal Device, Via Natural or Artificial Opening Endoscopic (ICD-10-PCS; principal; 2017-04-11 08:30)
PROC: 3E0336Z Introduction of Nutritional Substance into Peripheral Vein, Percutaneous Approach (ICD-10-PCS; 2017-04-15)
DX: A41.9 Sepsis, unspecified organism (principal); N39.0 Urinary tract infection, site not specified; N13.2 Hydronephrosis with renal and ureteral calculous obstruction; D61.818 Other pancytopenia; J90 Pleural effusion, not elsewhere classified; E46 Unspecified protein-calorie malnutrition; K50.90 Crohn's disease, unspecified, without complications; R65.20 Severe sepsis without septic shock; E11.22 Type 2 diabetes mellitus with diabetic chronic kidney disease; N18.9 Chronic kidney disease, unspecified; E83.42 Hypomagnesemia; E83.51 Hypocalcemia; E87.6 Hypokalemia; F32.9 Major depressive disorder, single episode, unspecified; D46.9 Myelodysplastic syndrome, unspecified; E55.9 Vitamin D deficiency, unspecified; Z79.84 Long term (current) use of oral hypoglycemic drugs; Z91.040 Latex allergy status; Z68.22 Body mass index [BMI] 22.0-22.9, adult

== ENCOUNTER 2017-06-26 15:15 | Inpatient (IN) | payer MEDICARE, OTHER ==
[2017-06-26 15:38] VITALS: BMI 20.5
[2017-06-26 16:41] LABS: BASO # 0.01 K/mm3 (0.0-2.0); BASO % 0.2 % (0.0-3.0); EOS # 0.2 (0.0-0.7); EOS % 4.2 % (1.5-5.0); GRAN # 3.1 (1.4-6.5); GRAN % 72.6 % (50.0-68.0); LYMPH # 0.6 (1.2-3.4); LYMPH % 14.3 % (22.0-35.0); MEAN CELL VOLUME 95.7 fl (80.0-105.0); MEAN CORPUSCULAR HGB CONC 33.4 g/dl (31.0-37.0); MONO # 0.4 (0.1-0.6); MONO % 8.7 % (1.0-6.0); WHITE BLOOD COUNT 4.3 10^3/ul (4.5-11.0)
[2017-06-26 16:47] LABS: ALB/GLOB RATIO 0.8 (1.1-1.8); BILIRUBIN,TOTAL 0.6 mg/dL (0.2-1.3); CALCIUM 8.4 mg/dL (8.4-10.5); TOTAL PROTEIN 6.7 g/dL (5.8-8.3)
[2017-06-26 16:52] LABS: URINE BILIRUBIN NEGATIVE (NEGATIVE); URINE BLOOD LARGE (NEGATIVE); URINE GLUCOSE (UA) NEGATIVE (NEGATIVE); URINE KETONE NEGATIVE (NEGATIVE); URINE LEUKOCYTE ESTERASE LARGE Leu/uL (NEGATIVE); URINE PROTEIN 30 mg/dL (<30 mg/dL); URINE UROBILINOGEN 0.2 E.U./dL (<1 E.U./dL)
[2017-06-26 16:54] LABS: URINE APPEARANCE CLOUDY (CLEAR); URINE COLOR STRAW (YELLOW)
--- NOTE | 2017-06-26 16:56 | ED PDOC ---
Arrival/HPI - General Chief Complaint: Abnormal Skin Integrity Time Seen by Provider: 06/26/17 15:46 Historian: Patient - History of Present Illness Narrative History of Present Illness (Text): 06/26/17 16:55 71 yo F w/ PMHx of DM type 2, nephrolithiasis, pyelonephritis, recurrent UTI's, hypokalemia, Crohn's disease, depression, c/o 2 day h/o red itchy painful burning rash to b/l LE. Patient states that the symptoms are new and that she's never had it before. She states that is her PMD sent her to the emergency room for further evaluation. Patient states that she was recently discharged from the [facility] last week, she states that she was in the ICU, she was admitted for UTI, and hypokalemia. Patient states that she was d/c home with a PICC line in her left arm and she administers cefepime antibiotic to herself to treat the UTI. She reports that she also has a dry cough after her recent hospitalization. But denies any fever, chills, body aches, joint pain, joint swelling, chest pain, shortness of breath, abdominal pain, nausea, vomiting, diarrhea, recent travel. Of note patient has a copy of her discharge papers with her which shows lab results from her hospitalization, her Hgb was 8.5, plt was 67, creat 1.2. PMD Daviis Past Medical History - Provider Review Nursing Documentation Reviewed: Yes - Infectious Disease Hx of Infectious Diseases: None - Tetanus Immunization Tetanus Immunization: Unknown - Past Medical History Past Medical History: No Previous - Cardiac Hx Hypertension: Yes - Pulmonary Hx Respiratory Disorders: Yes Hx Asthma: Yes - Neurological Hx Neurological Disorder: Yes - HEENT Hx HEENT Disorder: No Hx Cataracts: Yes - Renal Hx Renal Disorder: Yes Hx Kidney Stones: Yes Other/Comment: RENAL CALCULI - Endocrine/Metabolic Hx Diabetes Mellitus Type 2: Yes (NIDD) - Hematological/Oncological Hx Blood Disorders: Yes - Integumentary Hx Dermatological Disorder: No - Musculoskeletal/Rheumatological Hx Musculoskeletal Disorders: Yes (RIB INJURY) Hx Back Pain: Yes Hx Falls: Yes (FELL 12-21-16 SLIPPED OFF BED.ATTEMPTED TO GET UP.) Hx Fractures: Yes (ELBOW) Hx Unsteady Gait: Yes (CANE) Other/Comment: CERVICAL RADICULOPATHY - Gastrointestinal Hx Gastrointestinal Disorders: Yes Hx Crohn's Disease: Yes Other/Comment: CHOLELITHAISIS. GASTRIC BYPASS - Genitourinary/Gynecological Hx Genitourinary Disorders: Yes (PYELONEPHRITIS,PSEUDOMONAS UTI,RENAL CA) Other/Comment: kidney stone - Psychiatric Hx Psychophysiologic Disorder: Yes Hx Depression: Yes Hx Emotional Abuse: No Hx Physical Abuse: No Hx Substance Use: No - Surgical History Hx Cholecystectomy: Yes Hx Gastric Bypass Surgery: Yes Other/Comment: kidney surgery - Anesthesia Hx Anesthesia: Yes Hx Anesthesia Reactions: No Hx Malignant Hyperthermia: No - Suicidal Assessment Feels Threatened In Home Enviroment: No Family/Social History - Physician Review Nursing Documentation Reviewed: Yes Family/Social History: Unknown Family HX Smoking Status: Never Smoked Hx Alcohol Use: No Hx Substance Use: No Hx Substance Use Treatment: No Allergies/Home Meds Allergies/Adverse Reactions: Allergies cashew nut Allergy (Verified 06/26/17 15:39) SWELLING latex Allergy (Verified 06/26/17 15:39) ANAPHYLAXIS naproxen Adverse Reaction (Verified 06/26/17 15:39) SWELLING AVOIDS cashews Allergy (Uncoded 06/26/17 15:39) SWELLING cats Allergy (Uncoded 06/26/17 15:39) RASH Home Medications: Home Meds Medication Instructions Recorded Confirmed Sertraline [Zoloft] 100 mg PO DAILY 08/20/14 06/26/17 ALPRAZolam [Xanax] 0.25 mg PO PRN PRN 10/25/15 06/26/17 Glyburide/Metformin HCl 1 tab PO QID 03/29/16 06/26/17 [Glyburide-Metformin 5-500 mg] Gabapentin [Neurontin] 300 mg PO TID 03/31/16 06/26/17 Biotin [Cyto B7] 10 mg PO DAILY 06/26/17 06/26/17 Cefepime [Maxipime] 2 gm IV QWK 06/26/17 06/26/17 DiphenhydrAMINE [Benadryl] 25 mg PO TID 06/26/17 06/26/17 Folic Acid 1 mg PO DAILY 06/26/17 06/26/17 Mesalamine ER Cap [Pentasa] 500 mg PO BID 06/26/17 06/26/17 Review of Systems - Review of Systems Constitutional: Normal. absent: Fatigue, Weight Change, Fevers ENT: Normal. absent: Sore Throat, Rhinorrhea, Sinus Congestion Respiratory: Normal, Cough. absent: SOB, Sputum, Wheezing Cardiovascular: Normal. absent: Chest Pain, Palpitations, Edema Gastrointestinal: Normal. absent: Abdominal Pain, Diarrhea, Nausea, Vomiting Genitourinary Female: Normal. absent: Dysuria, Frequency, Hematuria Musculoskeletal: Normal. absent: Arthralgias, Back Pain, Neck Pain, Joint Swelling Skin: Normal, Rash. absent: Pruritis, Skin Lesions, Laceration Neurological: Normal. absent: Headache, Dizziness, Focal Weakness Physical Exam Vital Signs Reviewed: Yes Vital Signs Temp Pulse Resp BP Pulse Ox 06/26/17 22:42 72 16 124/82 99 06/26/17 20:34 98.2 F 66 18 121/71 06/26/17 20:10 78 16 123/66 100 06/26/17 18:45 66 18 121/71 100 06/26/17 15:39 98.2 F 69 20 122/72 100 06/26/17 15:38 98.2 F 69 18 122/72 100 Temperature: Afebrile Blood Pressure: Normal Pulse: Regular Respiratory Rate: Normal Appearance: Positive for: Well-Appearing, Non-Toxic, Comfortable Pain Distress: None Mental Status: Positive for: Alert and Oriented X 3 - Systems Exam Head: Present: Atraumatic, Normocephalic Pupils: Present: PERRL Extroacular Muscles: Present: EOMI Conjunctiva: Present: Normal. No: Injected, Icteric Ears: Present: Normal, NORMAL TM. No: Erythema Mouth: Present: Moist Mucous Membranes Pharnyx: Present: Normal, Other. No: ERYTHEMA, EXUDATE Neck: Present: Normal Range of Motion. No: MIDLINE TENDERNESS, Lymphadenopathy Respiratory/Chest: Present: Clear to Auscultation, Good Air Exchange. No: Respiratory Distress, Accessory Muscle Use, Wheezes, Rhonchi Cardiovascular: Present: Regular Rate and Rhythm. No: Murmurs, Normal S1, S2 Abdomen: No: Tenderness, Distention, Rebound, Guarding Back: Present: Normal Inspection. No: CVA Tenderness Upper Extremity: Present: Normal Inspection, Normal ROM, NORMAL PULSES, Neurovascularly Intact, Capillary Refill < 2s. No: Tenderness, Swelling, Temperature Abnormalties, Deformity, Norm 2-Pt Discrimination Lower Extremity: Present: NORMAL PULSES, Normal ROM, Neurovascularly Intact, Capillary Refill < 2 s, Other (+diffuse petechial tender rash to the b/l LE from below the knees to the feet) Neurological: Present: GCS=15, CN II-XII Intact, Speech Normal, Motor Func Grossly Intact, Normal Sensory Function Skin: Present: Warm, Dry, Normal Color Medical Decision Making ED Course and Treatment: 06/26/17 17:01 71 yo F w/ PMHx of DM type 2, nephrolithiasis, pyelonephritis, recurrent UTI's , hypokalemia, Crohn's disease, depression, c/o 2 day h/o red itchy painful burning rash to b/l LE. Plan: -- Labs -- IV fluids -- Urinalysis -- EKG -- CXR -- Sed rate / C-reactive protien -- Reassess and disposition 06/26/17 18:02 Labs reviewed : hgb 9.7, plt 89, k 2.8, UA +UTI. KCL po 40mEq PO, KCL 20mEq IV x2 riders ordered. CXR : NAD, as read by SALMA and ER MD. EKG: SB at 59 bpm, (-) acute ST changes, as read by PA. On reevaluation, the patient is resting comfortably in bed in no acute distress. Patient remains awake, alert, oriented 3. Patient has no additional complaints at this time. Diagnostic results discussed the patient in great detail. Based on history, exam and diagnostic results plan will be for inpatient observation. Case d/w Dr. Browne, agrees with inpt obs. Request that the patient receive IV solumedrol 40 mg, order blood cx, start colchicine, with consults to Sx and Hem. Plan for further care d/w the patient. Patient states she fully agrees with and understands further plan of care. - Lab Interpretations Lab Results: 06/26/17 16:25 06/26/17 16:25 Lab Results 06/26/17 17:25: PT 17.6 H, INR 1.60 H, APTT 31.3 06/26/17 16:41: Urine Color Straw, Urine Appearance Cloudy, Urine pH 6.0, Ur Specific [place] 1.010, Urine Protein 30 H, Urine Glucose (UA) Negative, Urine Ketones Negative, Urine Blood Large H, Urine Nitrate Positive H, Urine Bilirubin Negative, Urine Urobilinogen 0.2, Ur Leukocyte Esterase Large H, Urine RBC Tntc, Urine WBC Tntc, Ur Epithelial Cells 4 - 5, Urine Bacteria Few 06/26/17 16:25: Sodium 143, Potassium 2.8 L* D, Chloride 117 H, Carbon Dioxide 13 L, Anion Gap 16, BUN 12, Creatinine 1.1, Est GFR ( Amer) 59, Est GFR ( Non-Af Amer) 49, Random Glucose 115 H, Calcium 8.4, Total Bilirubin 0.6, AST 41 H, ALT 44, Alkaline Phosphatase 162 H, Total Protein 6.7, Albumin 3.1, Globulin 3.7, Albumin/Globulin Ratio 0.8 L 06/26/17 16:25: WBC 4.3 L D, RBC 3.03 L, Hgb 9.7 L, Hct 29.0 L, MCV 95.7, MCH 32.0, MCHC 33.4, RDW 15.0 H, Plt Count 89 L, MPV 10.0, Gran % 72.6 H, Lymph % ( Auto) 14.3 L, [place] % (Auto) 8.7 H, Eos % (Auto) 4.2, Baso % (Auto) 0.2, Gran # 3.10, Lymph # 0.6 L, [place] # 0.4, Eos # 0.2, Baso # 0.01, ESR 40 H - RAD Interpretation Radiology Orders: 06/26/17 16:11 CHEST TWO VIEWS (PA/LAT) [RAD] Stat - Medication Orders Current Medication Orders: Alprazolam (Xanax) 0.25 mg PO Q6H PRN; Protocol PRN Reason: Anxiety Stop: 07/03/17 19:39 Ascorbic Acid (Vitamin C 500 Mg Tab) 500 mg PO DAILY [facility] Colchicine (Colocrys) 0.6 mg PO TID [facility] Diphenhydramine HCl (Benadryl) 25 mg PO TID [facility] Folic Acid (Folic Acid) 1 mg PO DAILY [facility] Gabapentin (Neurontin) 300 mg PO TID AGNES PRN Reason: Protocol Glyburide (Micronase) 5 mg PO 0800 [facility] Lactobacillus Acidophilus (Bacid Acidophilus) 1 cap PO TID [facility] Mesalamine (Pentasa) 500 mg PO BID [facility] Metformin HCl (Glucophage) 500 mg PO DAILY AGNES Methylprednisolone (Solu-Medrol) 40 mg IVP Q12 AGNES Sertraline HCl (Zoloft) 100 mg PO DAILY AGNES Discontinued Medications Potassium Chloride (Potassium Chloride 20 Meq/100 Ml) 20 meq in 100 mls @ 50 mls/hr IVPB Q2H AGNES Stop: 06/26/17 21:14 Last Admin: 06/26/17 20:19 Dose: 50 mls/hr eMAR Start Stop Document 06/26/17 20:19 HI (Rec: 06/26/17 20:19 HI [id number]) Intravenous Solution Start Date 06/26/17 Start Time 20:19 Cefepime HCl (Maxipime 2gm) 2 gm in 100 mls @ 100 mls/hr IVPB STAT STA PRN Reason: Protocol Stop: 06/26/17 20:41 Last Admin: 06/26/17 22:28 Dose: 100 mls/hr eMAR Start Stop Document 06/26/17 22:28 HI (Rec: 06/26/17 22:28 HI [id number]) Intravenous Solution Start Date 06/26/17 Start Time 22:28 Metformin HCl (Glucophage) 500 mg PO BID AGNES Methylprednisolone (Solu-Medrol) 40 mg IV STAT STA Stop: 06/26/17 18:08 Last Admin: 06/26/17 18:45 Dose: 40 mg eMAR Start Stop Document 06/26/17 18:45 AD (Rec: 06/26/17 18:45 AD [id number]) Intravenous Solution Start Date 06/26/17 Start Time 18:45 Pantoprazole Sodium (Protonix Inj) 40 mg IVP STAT STA Stop: 06/26/17 19:58 Last Admin: 06/26/17 22:29 Dose: 40 mg IVP Administration Document 06/26/17 22:29 HI (Rec: 06/26/17 22:29 HI [id number]) Charges for Administration # of IVP Administrations 1 Pneumococcal Polyvalent Vaccine (Pneumovax 23 Vaccine) 0.5 ml IM .ONCE ONE Stop: 06/26/17 21:04 Last Admin: 06/26/17 22:41 Dose: Potassium Chloride (Potassium Chloride Oral Soln) 40 meq PO STAT STA Stop: 06/26/17 17:08 Last Admin: 06/26/17 17:39 Dose: 40 meq - PA / VB NET DEVELOPER / Resident Statement /DO has reviewed & agrees with the documentation as recorded. Disposition/Present on Arrival - Present on Arrival Any Indicators Present on Arrival: No History of DVT/PE: No History of Uncontrolled Diabetes: No Urinary Catheter: No History of Decub. Ulcer: No History Surgical Site Infection Following: None - Disposition Have Diagnosis and Disposition been Completed?: Yes Diagnosis: Urinary tract infection, Hypokalemia, Petechial eruption Disposition: HOSPITALIZED Disposition Time: 17:45 Patient Plan: Observation (inpatient obs) Patient Problems: Current Active Problems Problem Status Onset Petechial eruption Acute Hypokalemia Chronic UTI (urinary tract infection) Chronic Condition: STABLE
[2017-06-26 16:57] LABS: URINE RBC TNTC /hpf (0-2); URINE WBC TNTC /hpf (0-6)
[2017-06-26 16:58] LABS: URINE BACTERIA FEW (NEG)
[2017-06-26 16:59] LABS: POTASSIUM 2.8 mmol/L (3.6-5.0)
[2017-06-26] MEDS ORDERED: Potassium Chloride 20 mEq/15 ml LIQ UD PO STA (17:07)
[2017-06-26 17:39] LABS: INR 1.6 (0.93-1.08); PARTIAL THROMBOPLASTIN TIME 31.3 Seconds (25.1-36.5)
[2017-06-26] MEDS ORDERED: MethylPREDNISolone 40 mg Vial IV STA (18:07)
--- NOTE | 2017-06-26 18:58 | CP.PCM.HP ---
History of Present Illness - History of Present Illness History of Present Illness: Patient is a 71 year old female with past medical history of DM2, recurrent UTI , urethral vesicular junctional reflux, Crohn's disease, renal stones, and h/o subdural hematoma who presents to the [facility] after being sent over from her primary care's office for the development of an acute petechial rash and hypokalemia. Patient reports that last evening she noticed a new burning, itching, new red/maroon rash on her lower legs bilaterally. Patient denies ever having a rash like this in her past. She denies taking any medication from the onset of her symptoms. Of note, one week prior she was previously admitted to [facility] for UTI/pyelonephritis status post stent removal with Dr. Horvath. She was treated with cefepime and discharged home. Associated symptoms for the patient include loose diarrhea, cloudy urine, and chills. Patient denies chest pain, shortness of breath, joint pain, fever, dysuria, dark stool, bright red blood per rectum, nausea and vomiting. PMH: DM2, Renal Stones, Crohn's disease, h/o traumatic SDH, h/o subarrachnoid hemorrhage, hydronephrosis, UTI, hx of rib fracture PSH: Ileo bypass, tubal ligation, Appendectomy, Cholecystecomy, Vein stripping of Left leg, renal stone removal, throat surgery for possible cyst removal SocHx: Smoke: Denies, former ETOH: Social, ID: Denies, Occupation: retired All: Naproxen, cashews, cats, latex FMH: - Mother: at 65 due to SD - Father: at 65 due to coma passed from unknown reason Medications: - Xanax 0.25mg BID prn - Vitamin C 500mg PO daily - Biotin 10mg PO Daily - Cefepime 2grams Day 9/10 - Benadryl 25mg PO Daily prn - Folic acid 1mg PO Daily - Gabapentin 300mg PO TID - Glyburide-Metformin 5-500 PO BID - Pentase 500mg PO Daily - Zoloft 100mg PO Daily PMD: Dr. Oleg Browne Urologist: Dr. Alexandru Hurst PGY1 Present on Admission - Present on Admission Any Indicators Present on Admission: No History of DVT/PE: No History of Uncontrolled Diabetes: No Review of Systems - Constitutional Constitutional: Chills, Fatigue. absent: Fever - EENT Eyes: absent: Blurred Vision, Change in Vision, Itchy Eyes, Pain Ears: absent: Decreased Hearing, Ear Pain Nose/Mouth/Throat: absent: Nasal Congestion, Nasal Discharge, Bleeding Gums - Cardiovascular Cardiovascular: absent: Chest Pain, Claudication, Diaphoresis, Dyspnea, Palpitations - Respiratory Respiratory: absent: Cough, Dyspnea, Hemoptysis, Wheezing - Gastrointestinal Gastrointestinal: Diarrhea. absent: Abdominal Pain, Bloating, Coffee Ground Emesis, Cramping, Hematemesis, Nausea, Vomiting - Genitourinary Genitourinary: Freq UTI. absent: Change in Urinary Stream, Difficulty Urinating , Dysuria, Hematuria - Musculoskeletal Musculoskeletal: absent: Arthralgias, Back Pain, Muscle Cramps - Integumentary Integumentary: New Lesions, Pruritus, Rash, Swelling Additional comments: petechial rash bilateral lower extremities - Neurological Neurological: absent: Abnormal Movements, Numbness, Restless Legs, Weakness - Psychiatric Psychiatric: absent: Anxiety, Depression - Hematologic/Lymphatic Hematologic: Easy Bruising (secondary to previous hospital admission IV lines) Past Patient History - Infectious Disease Hx of Infectious Diseases: None - Tetanus Immunizations Tetanus Immunization: Unknown - Past Social History Smoking Status: Never Smoked - CARDIAC Hx Hypertension: Yes - PULMONARY Hx Respiratory Disorders: Yes Hx Asthma: Yes - NEUROLOGICAL Hx Neurological Disorder: Yes - HEENT Hx HEENT Problems: No Hx Cataracts: Yes - RENAL Hx Chronic Kidney Disease: Yes Hx Kidney Stones: Yes Other/Comment: RENAL CALCULI - ENDOCRINE/METABOLIC Hx Diabetes Mellitus Type 2: Yes (NIDD) - HEMATOLOGICAL/ONCOLOGICAL Hx Blood Disorders: Yes - INTEGUMENTARY Hx Dermatological Problems: No - MUSCULOSKELETAL/RHEUMATOLOGICAL Hx Musculoskeletal Disorders: Yes (RIB INJURY) Hx Back Pain: Yes Hx Falls: Yes (FELL 17 SLIPPED OFF BED.ATTEMPTED TO GET UP.) Hx Fractures: Yes (ELBOW) Hx Unsteady Gait: Yes (CANE) Other/Comment: CERVICAL RADICULOPATHY - GASTROINTESTINAL Hx Gastrointestinal Disorders: Yes Hx Crohn's Disease: Yes Other/Comment: CHOLELITHAISIS. GASTRIC BYPASS - GENITOURINARY/GYNECOLOGICAL Hx Genitourinary Disorders: Yes (PYELONEPHRITIS,PSEUDOMONAS UTI,RENAL CA) Other/Comment: kidney stone - PSYCHIATRIC Hx Psychophysiologic Disorder: Yes Hx Depression: Yes Hx Emotional Abuse: No Hx Physical Abuse: No Hx Substance Use: No - SURGICAL HISTORY Hx Cholecystectomy: Yes Hx Gastric Bypass Surgery: Yes Other/Comment: kidney surgery - ANESTHESIA Hx Anesthesia: Yes Hx Anesthesia Reactions: No Hx Malignant Hyperthermia: No Meds Allergies/Adverse Reactions: Allergies Allergy/AdvReac Type Severity Reaction Status Date / Time cashew nut Allergy SWELLING Verified 06/26/17 15:39 latex Allergy ANAPHYLAXIS Verified 06/26/17 15:39 naproxen AdvReac SWELLING Verified 06/26/17 15:39 cashews Allergy SWELLING Uncoded 06/26/17 15:39 cats Allergy RASH Uncoded 06/26/17 15:39 Physical Exam - Constitutional Appears: Well - Head Exam Head Exam: ATRAUMATIC, NORMAL INSPECTION, NORMOCEPHALIC - Eye Exam Eye Exam: EOMI, PERRL Pupil Exam: PERRL - ENT Exam ENT Exam: Mucous Membranes Moist Additional comments: no lesions noted - Respiratory Exam Respiratory Exam: Clear to Auscultation Bilateral, NORMAL BREATHING PATTERN - Cardiovascular Exam Cardiovascular Exam: REGULAR RHYTHM, +S1, +S2 - GI/Abdominal Exam GI & Abdominal Exam: Normal Bowel Sounds, Soft - Extremities Exam Extremities exam: Positive for: pedal pulses present. Negative for: calf tenderness, tenderness Additional comments: lower extremity palpable purpura with +2 edema bilaterally - Back Exam Back exam: absent: CVA tenderness (L), CVA tenderness (R) - Neurological Exam Neurological exam: Alert, CN II-XII Intact, Normal Gait, Oriented x3 - Psychiatric Exam Psychiatric exam: Normal Affect, Normal Mood - Skin Skin Exam: Petechiae (lower extremities bilateral, palpable, non-blanchable) Results - Vital Signs Recent Vital Signs: Last Vital Signs Temp 98.2 F 06/26/17 15:39 Pulse 69 06/26/17 15:39 Resp 20 06/26/17 15:39 BP 122/72 06/26/17 15:39 Pulse Ox 100 06/26/17 15:39 - Labs Result Diagrams: 06/26/17 16:25 06/26/17 16:25 Labs: Laboratory Results - last 24 hr 06/26/17 06/26/17 06/26/17 16:25 16:25 16:41 WBC 4.3 L D RBC 3.03 L Hgb 9.7 L Hct 29.0 L MCV 95.7 MCH 32.0 MCHC 33.4 RDW 15.0 H Plt Count 89 L MPV 10.0 Gran % 72.6 H Lymph % (Auto) 14.3 L Saline % (Auto) 8.7 H Eos % (Auto) 4.2 Baso % (Auto) 0.2 Gran # 3.10 Lymph # 0.6 L Saline # 0.4 Eos # 0.2 Baso # 0.01 ESR 40 H PT INR APTT Sodium 143 Potassium 2.8 L* D Chloride 117 H Carbon Dioxide 13 L Anion Gap 16 BUN 12 Creatinine 1.1 Est GFR ( Amer) 59 Est GFR (Non-Af Amer) 49 Random Glucose 115 H Calcium 8.4 Total Bilirubin 0.6 AST 41 H ALT 44 Alkaline Phosphatase 162 H Total Protein 6.7 Albumin 3.1 Globulin 3.7 Albumin/Globulin Ratio 0.8 L Urine Color Straw Urine Appearance Cloudy Urine pH 6.0 Ur Specific [place] 1.010 Urine Protein 30 H Urine Glucose (UA) Negative Urine Ketones Negative Urine Blood Large H Urine Nitrate Positive H Urine Bilirubin Negative Urine Urobilinogen 0.2 Ur Leukocyte Esterase Large H Urine RBC Tntc Urine WBC Tntc Ur Epithelial Cells 4 - 5 Urine Bacteria Few 06/26/17 17:25 WBC RBC Hgb Hct MCV MCH MCHC RDW Plt Count MPV Gran % Lymph % (Auto) Saline % (Auto) Eos % (Auto) Baso % (Auto) Gran # Lymph # Saline # Eos # Baso # ESR PT 17.6 H INR 1.60 H APTT 31.3 Sodium Potassium Chloride Carbon Dioxide Anion Gap BUN Creatinine Est GFR ( Amer) Est GFR (Non-Af Amer) Random Glucose Calcium Total Bilirubin AST ALT Alkaline Phosphatase Total Protein Albumin Globulin Albumin/Globulin Ratio Urine Color Urine Appearance Urine pH Ur Specific [place] Urine Protein Urine Glucose (UA) Urine Ketones Urine Blood Urine Nitrate Urine Bilirubin Urine Urobilinogen Ur Leukocyte Esterase Urine RBC Urine WBC Ur Epithelial Cells Urine Bacteria Assessment & Plan - Assessment and Plan (Free Text) Assessment: Patient is a 71 year old female with past medical history of DM2, recurrent UTI , urethral vesicular junctional reflux, Crohn's disease, renal stones, and h/o subdural hematoma who presents to the [facility] after being sent over from her primary care's office for the development of an acute petechial rash and hypokalemia. Patient is s/p one week hospital admission to [facility] for UTI/pyelonephritis. Plan: Painful Palpable Purpura - Diff Dx: Leukocytoclastic vasculitis vs. HSP vs. CASTILLO - new onset of palpable purpura that is non-blanchable - denies fever, arthalgias, dark stool, hematuria, abdominal pain - Patient has previous history of Leukocytoclastic vasculitis - Consult General Surgery for punch biopsy - Consult Heme/Onc(Dr. Patel) - IV solumedrol 40mg BID - Colchicine 0.6 mg TID - ASO titer, ESR, UA, CBC, CMP, Coag's - Serum IgA, C3, C4 Hypokalemia - diff dx: Likely secondary to diarrhea, denies n/v - Replete K, continue to monitor - Repeat BMP UTI - UA showing positive leukocyte esterase, nitrate, blood - known extensive history of UTI with staghorn calculus - Methanamine - IVF - Continue Cefepime 2g Q12H, patient has currently received 9 days of antibiotic at home via PICC line DM2 - Accuchecks - Continue Metformin 500mg BID, Glyburide 5mg - Monitor Chron's disease - recent diarrhea, denies melena, bright red blood - Monitor PPX - Protonix - SCDs Case and plan discussed with attending - Date & Time Date: 06/26/17 Time: 19:10
[2017-06-26] MEDS ORDERED: Cefepime IV 2 gm in NS 2 GM/100 ML BAG IVPB STA (19:42)
[2017-06-26] MEDS ORDERED: Influenza Vaccine 60 mcg/0.5 mL SYR (4YR UP) IM ONE (21:03)
[2017-06-26] MEDS ORDERED: Pneumococcal 23-Valent Vaccine IM ONE (21:03)
[2017-06-26 21:19] LABS: CALCIUM 8.6 mg/dL (8.4-10.5); POTASSIUM 4.3 mmol/L (3.6-5.0)
--- NOTE | 2017-06-27 00:54 | CP.PCM.CON ---
<Lion Milligan - Last Filed: 06/27/17 08:26> History of Present Illness - History of Present Illness History of Present Illness: General Surgery 71F pmhx of DM, recurrent UTI, urethral vesicular junction reflux, Crohn's disease was admitted due to bilateral lower extremity below patella acute non- blanching petechial rash that began one day ago. Describes the rash as burning and itching. Patient states she had a rash similar to this before that was biopsied with no conclusive results. Patient was previously admitted to [facility] for UTI s/p ureter stent removal. Patient denies current nausea, vomiting, chest pain, shortness of breath, joint pain, numbness/tingling in extremities. PMH: DM2, Renal Stones, Crohn's disease, h/o traumatic SDH, h/o subarrachnoid hemorrhage, hydronephrosis, UTI, hx of rib fracture PSH: Ileo bypass, tubal ligation, Appendectomy, Cholecystecomy, Vein stripping of Left leg, renal stone removal, throat surgery for possible cyst removal All: Naproxen, nuts, cats, latex SocialHx: former ETOH, denies tobacco or recreational durg use. Review of Systems - Review of Systems All systems: reviewed and no additional remarkable complaints except - Constitutional Constitutional: As Per HPI Past Patient History - Infectious Disease Hx of Infectious Diseases: None - Tetanus Immunizations Tetanus Immunization: Unknown - Past Social History Smoking Status: Never Smoked - CARDIAC Hx Hypertension: Yes - PULMONARY Hx Respiratory Disorders: Yes Hx Asthma: Yes - NEUROLOGICAL Hx Neurological Disorder: Yes - HEENT Hx HEENT Problems: No Hx Cataracts: Yes - RENAL Hx Chronic Kidney Disease: Yes Hx Kidney Stones: Yes Other/Comment: RENAL CALCULI - ENDOCRINE/METABOLIC Hx Diabetes Mellitus Type 2: Yes (NIDD) - HEMATOLOGICAL/ONCOLOGICAL Hx Blood Disorders: Yes - INTEGUMENTARY Hx Dermatological Problems: No - MUSCULOSKELETAL/RHEUMATOLOGICAL Hx Musculoskeletal Disorders: Yes (RIB INJURY) Hx Back Pain: Yes Hx Falls: Yes (FELL 17 SLIPPED OFF BED.ATTEMPTED TO GET UP.) Hx Fractures: Yes (ELBOW) Hx Unsteady Gait: Yes (CANE) Other/Comment: CERVICAL RADICULOPATHY - GASTROINTESTINAL Hx Gastrointestinal Disorders: Yes Hx Crohn's Disease: Yes Other/Comment: CHOLELITHAISIS. GASTRIC BYPASS - GENITOURINARY/GYNECOLOGICAL Hx Genitourinary Disorders: Yes (PYELONEPHRITIS,PSEUDOMONAS UTI,RENAL CA) Other/Comment: kidney stone - PSYCHIATRIC Hx Psychophysiologic Disorder: Yes Hx Depression: Yes Hx Emotional Abuse: No Hx Physical Abuse: No Hx Substance Use: No - SURGICAL HISTORY Hx Cholecystectomy: Yes Hx Gastric Bypass Surgery: Yes Other/Comment: kidney surgery - ANESTHESIA Hx Anesthesia: Yes Hx Anesthesia Reactions: No Hx Malignant Hyperthermia: No Meds Allergies/Adverse Reactions: Allergies Allergy/AdvReac Type Severity Reaction Status Date / Time cashew nut Allergy SWELLING Verified 06/26/17 15:39 latex Allergy ANAPHYLAXIS Verified 06/26/17 15:39 naproxen AdvReac SWELLING Verified 06/26/17 15:39 cashews Allergy SWELLING Uncoded 06/26/17 15:39 cats Allergy RASH Uncoded 06/26/17 15:39 - Medications Medications: Current Medications Alprazolam (Xanax) 0.25 mg PO Q6H PRN; Protocol PRN Reason: Anxiety Stop: 07/03/17 19:39 Ascorbic Acid (Vitamin C 500 Mg Tab) 500 mg PO DAILY [facility] Colchicine (Colocrys) 0.6 mg PO TID [facility] Diphenhydramine HCl (Benadryl) 25 mg PO TID [facility] Folic Acid (Folic Acid) 1 mg PO DAILY [facility] Gabapentin (Neurontin) 300 mg PO TID [facility] PRN Reason: Protocol Glyburide (Micronase) 5 mg PO 0800 [facility] Lactobacillus Acidophilus (Bacid Acidophilus) 1 cap PO TID [facility] Mesalamine (Pentasa) 500 mg PO BID [facility] Metformin HCl (Glucophage) 500 mg PO DAILY [facility] Methylprednisolone (Solu-Medrol) 40 mg IVP Q12 [facility] Sertraline HCl (Zoloft) 100 mg PO DAILY [facility] Physical Exam - Constitutional Appears: Non-toxic, No Acute Distress - Head Exam Head Exam: ATRAUMATIC - Eye Exam Eye Exam: EOMI. absent: Scleral icterus - ENT Exam ENT Exam: Mucous Membranes Moist - Respiratory Exam Respiratory Exam: NORMAL BREATHING PATTERN. absent: Accessory Muscle Use, Respiratory Distress - Cardiovascular Exam Cardiovascular Exam: +S1, +S2. absent: Bradycardia, Tachycardia - GI/Abdominal Exam GI & Abdominal Exam: Soft. absent: Distended, Firm, Guarding, Rigid, Tenderness - Extremities Exam Extremities exam: Positive for: joint swelling, pedal pulses present Additional comments: bilateral petichial rash; non-blanching, non-raised - Neurological Exam Neurological exam: Alert, Oriented x3 - Skin Skin Exam: Normal Color, Warm Results - Vital Signs Recent Vital Signs: Last Vital Signs Temp 98.2 F 06/26/17 20:34 Pulse 72 06/26/17 22:42 Resp 16 06/26/17 22:42 BP 124/82 06/26/17 22:42 Pulse Ox 99 06/26/17 22:42 - Labs Result Diagrams: 06/27/17 07:23 06/27/17 07:23 Labs: Laboratory Results - last 24 hr 06/26/17 21:00 Sodium 144 Potassium 4.3 Chloride 120 H Carbon Dioxide 12 L Anion Gap 16 BUN 12 Creatinine 1.1 Est GFR ( Amer) 59 Est GFR (Non-Af Amer) 49 Random Glucose 145 H Calcium 8.6 Assessment & Plan - Assessment and Plan (Free Text) Assessment: 71F bilateral lower extremity non-blanching palpable petichae Plan: - perform punch biopsy at bedside - f/u pathology results - medical management per primary team - further recs per surgical attending Lion Milligan PGY1 <Rolando Moore - Last Filed: 06/28/17 08:09> Meds - Medications Medications: Current Medications Alprazolam (Xanax) 0.25 mg PO Q6H PRN; Protocol PRN Reason: Anxiety Stop: 07/03/17 19:39 Ascorbic Acid (Vitamin C 500 Mg Tab) 500 mg PO DAILY [facility] Last Admin: 06/27/17 10:38 Dose: 500 mg Cholecalciferol (Vitamin D) 2,000 iu PO DAILY [facility] Last Admin: 06/27/17 11:59 Dose: 2,000 iu Colchicine (Colocrys) 0.6 mg PO TID [facility] Last Admin: 06/27/17 17:19 Dose: 0.6 mg Diphenhydramine HCl (Benadryl) 25 mg PO TID PRN PRN Reason: Itching / Pruritus Last Admin: 06/28/17 04:07 Dose: 25 mg Famotidine (Pepcid) 40 mg PO HS [facility] Last Admin: 06/27/17 21:20 Dose: 40 mg Folic Acid (Folic Acid) 1 mg PO DAILY [facility] Last Admin: 06/27/17 10:34 Dose: 1 mg Gabapentin (Neurontin) 300 mg PO HS [facility] PRN Reason: Protocol Last Admin: 06/27/17 21:16 Dose: 300 mg Sodium Chloride (Sodium Chloride 0.9%) 1,000 mls @ 150 mls/hr IV .Q6H40M [facility] Last Admin: 06/28/17 07:16 Dose: Not Given Insulin Human Lispro (Humalog High) 0 units SC ACHS [facility] PRN Reason: Protocol Lactobacillus Acidophilus (Bacid Acidophilus) 1 cap PO TID [facility] Last Admin: 06/27/17 17:19 Dose: 1 cap Mesalamine (Pentasa) 500 mg PO BID [facility] Last Admin: 06/27/17 17:19 Dose: 500 mg Methylprednisolone (Solu-Medrol) 40 mg IVP Q8 [facility] Last Admin: 06/28/17 07:15 Dose: 40 mg Potassium Chloride (K-Dur 20 Meq Er Tab) 20 meq PO BRK [facility] Last Admin: 06/27/17 10:34 Dose: 20 meq Sertraline HCl (Zoloft) 100 mg PO DAILY [facility] Last Admin: 06/27/17 10:35 Dose: 100 mg Sodium Bicarbonate (Sodium Bicarbonate Tab) 650 mg PO Q6 [facility] Results - Vital Signs Recent Vital Signs: Last Vital Signs Temp 97.5 F L 06/28/17 07:16 Pulse 65 06/28/17 07:16 Resp 18 06/28/17 07:16 BP 99/57 L 06/28/17 07:16 Pulse Ox 96 06/28/17 07:16 - Labs Result Diagrams: 06/28/17 06:30 06/28/17 06:30 Labs: Laboratory Results - last 24 hr 06/26/17 06/26/17 06/27/17 21:00 21:00 07:07 WBC RBC Hgb Hct MCV MCH MCHC RDW Plt Count MPV Gran % Lymph % (Auto) Will % (Auto) Eos % (Auto) Baso % (Auto) Gran # Lymph # Will # Eos # Baso # Smear Path Review Retic Count 2.46 H Haptoglobin PT INR APTT pO2 VBG pH VBG pCO2 VBG HCO3 VBG Total CO2 VBG O2 Sat (Calc) VBG Base Excess VBG Potassium Sodium Chloride Glucose Lactate FiO2 Potassium Carbon Dioxide Anion Gap BUN Creatinine Est GFR ( Amer) Est GFR (Non-Af Amer) POC Glucose (mg/dL) Random Glucose Calcium Magnesium Iron TIBC % Saturation Ferritin Total Bilirubin AST ALT Alkaline Phosphatase Lactate Dehydrogenase Total Protein Albumin Globulin Albumin/Globulin Ratio Vitamin B12 Folate TSH 3rd Generation Venous Blood Potassium Ur Random Creatinine IgA 733.2 H Complement C3 85.0 L Complement C4 16.4 Hepatitis A IgM Ab Hep Bs Antigen Hep B Core IgM Ab Hepatitis C Antibody Anti-Streptolysin O Ab 290 H 06/27/17 06/27/17 06/27/17 07:10 07:11 07:12 WBC RBC Hgb Hct MCV MCH MCHC RDW Plt Count MPV Gran % Lymph % (Auto) Will % (Auto) Eos % (Auto) Baso % (Auto) Gran # Lymph # Will # Eos # Baso # Smear Path Review Retic Count Haptoglobin PT INR APTT pO2 VBG pH VBG pCO2 VBG HCO3 VBG Total CO2 VBG O2 Sat (Calc) VBG Base Excess VBG Potassium Sodium Chloride Glucose Lactate FiO2 Potassium Carbon Dioxide Anion Gap BUN Creatinine Est GFR ( Amer) Est GFR (Non-Af Amer) POC Glucose (mg/dL) Random Glucose Calcium Magnesium Iron 46 TIBC 236 L % Saturation 20 Ferritin 210.0 Total Bilirubin AST ALT Alkaline Phosphatase Lactate Dehydrogenase Total Protein Albumin Globulin Albumin/Globulin Ratio Vitamin B12 899 Folate > 20.0 TSH 3rd Generation 0.51 Venous Blood Potassium Ur Random Creatinine IgA Complement C3 Complement C4 Hepatitis A IgM Ab Hep Bs Antigen Hep B Core IgM Ab Hepatitis C Antibody Anti-Streptolysin O Ab 06/27/17 06/27/17 06/27/17 07:22 07:23 07:30 WBC RBC Hgb Hct MCV MCH MCHC RDW Plt Count MPV Gran % Lymph % (Auto) Will % (Auto) Eos % (Auto) Baso % (Auto) Gran # Lymph # Will # Eos # Baso # Smear Path Review Cancelled Retic Count Haptoglobin PT INR APTT pO2 VBG pH VBG pCO2 VBG HCO3 VBG Total CO2 VBG O2 Sat (Calc) VBG Base Excess VBG Potassium Sodium Chloride Glucose Lactate FiO2 Potassium Carbon Dioxide Anion Gap BUN Creatinine Est GFR ( Amer) Est GFR (Non-Af Amer) POC Glucose (mg/dL) 247 H Random Glucose Calcium Magnesium 1.9 Iron TIBC % Saturation Ferritin Total Bilirubin AST ALT Alkaline Phosphatase Lactate Dehydrogenase Total Protein Albumin Globulin Albumin/Globulin Ratio Vitamin B12 Folate TSH 3rd Generation Venous Blood Potassium Ur Random Creatinine IgA Complement C3 Complement C4 Hepatitis A IgM Ab Hep Bs Antigen Hep B Core IgM Ab Hepatitis C Antibody Anti-Streptolysin O Ab 06/27/17 06/27/17 06/27/17 10:30 10:30 10:30 WBC RBC Hgb Hct MCV MCH MCHC RDW Plt Count MPV Gran % Lymph % (Auto) Will % (Auto) Eos % (Auto) Baso % (Auto) Gran # Lymph # Will # Eos # Baso # Smear Path Review Retic Count Haptoglobin 26 L PT INR APTT pO2 VBG pH VBG pCO2 VBG HCO3 VBG Total CO2 VBG O2 Sat (Calc) VBG Base Excess VBG Potassium Sodium Chloride Glucose Lactate FiO2 Potassium Carbon Dioxide Anion Gap BUN Creatinine Est GFR ( Amer) Est GFR (Non-Af Amer) POC Glucose (mg/dL) Random Glucose Calcium Magnesium Iron TIBC % Saturation Ferritin Total Bilirubin AST ALT Alkaline Phosphatase Lactate Dehydrogenase 391 Total Protein Albumin Globulin Albumin/Globulin Ratio Vitamin B12 Folate TSH 3rd Generation Venous Blood Potassium Ur Random Creatinine IgA Complement C3 Complement C4 Hepatitis A IgM Ab Negative Hep Bs Antigen Negative Hep B Core IgM Ab Negative Hepatitis C Antibody Negative Anti-Streptolysin O Ab 06/27/17 06/27/17 06/27/17 10:48 16:34 17:10 WBC RBC Hgb Hct MCV MCH MCHC RDW Plt Count MPV Gran % Lymph % (Auto) Will % (Auto) Eos % (Auto) Baso % (Auto) Gran # Lymph # Will # Eos # Baso # Smear Path Review Retic Count Haptoglobin PT INR APTT pO2 50 VBG pH 7.21 L VBG pCO2 32.0 L VBG HCO3 12.8 L VBG Total CO2 13.8 L VBG O2 Sat (Calc) 82.5 H VBG Base Excess -13.9 L VBG Potassium 4.2 Sodium 140.0 Chloride 116.0 H Glucose 407 H* D Lactate 3.2 H FiO2 21.0 Potassium Carbon Dioxide Anion Gap BUN Creatinine Est GFR ( Amer) Est GFR (Non-Af Amer) POC Glucose (mg/dL) 217 H 334 H Random Glucose Calcium Magnesium Iron TIBC % Saturation Ferritin Total Bilirubin AST ALT Alkaline Phosphatase Lactate Dehydrogenase Total Protein Albumin Globulin Albumin/Globulin Ratio Vitamin B12 Folate TSH 3rd Generation Venous Blood Potassium 4.2 Ur Random Creatinine IgA Complement C3 Complement C4 Hepatitis A IgM Ab Hep Bs Antigen Hep B Core IgM Ab Hepatitis C Antibody Anti-Streptolysin O Ab 06/27/17 06/27/17 06/27/17 20:55 20:59 21:16 WBC RBC Hgb Hct MCV MCH MCHC RDW Plt Count MPV Gran % Lymph % (Auto) Will % (Auto) Eos % (Auto) Baso % (Auto) Gran # Lymph # Will # Eos # Baso # Smear Path Review Retic Count Haptoglobin PT INR APTT pO2 35 VBG pH 7.21 L VBG pCO2 37.0 L VBG HCO3 14.8 L VBG Total CO2 15.9 L VBG O2 Sat (Calc) 67.0 H VBG Base Excess -12.3 L VBG Potassium 3.7 Sodium 138.0 Chloride 112.0 H Glucose 497 H* D Lactate 3.2 H FiO2 21.0 Potassium Carbon Dioxide Anion Gap BUN Creatinine Est GFR ( Amer) Est GFR (Non-Af Amer) POC Glucose (mg/dL) > 500 H* Random Glucose Calcium Magnesium Iron TIBC % Saturation Ferritin Total Bilirubin AST ALT Alkaline Phosphatase Lactate Dehydrogenase Total Protein Albumin Globulin Albumin/Globulin Ratio Vitamin B12 Folate TSH 3rd Generation Venous Blood Potassium 3.7 Ur Random Creatinine 20 IgA Complement C3 Complement C4 Hepatitis A IgM Ab Hep Bs Antigen Hep B Core IgM Ab Hepatitis C Antibody Anti-Streptolysin O Ab 06/28/17 06/28/17 06/28/17 02:55 06:30 06:30 WBC 2.9 L* RBC 2.94 L Hgb 9.4 L Hct 27.9 L MCV 94.9 MCH 32.0 MCHC 33.7 RDW 14.9 H Plt Count 72 L MPV 9.6 Gran % 87.2 H Lymph % (Auto) 7.6 L Will % (Auto) 5.2 Eos % (Auto) 0.0 L Baso % (Auto) 0.0 Gran # 2.53 Lymph # 0.2 L Will # 0.2 Eos # 0.0 Baso # 0.00 Smear Path Review Retic Count Haptoglobin PT 16.8 H INR 1.51 H APTT 30.5 pO2 VBG pH VBG pCO2 VBG HCO3 VBG Total CO2 VBG O2 Sat (Calc) VBG Base Excess VBG Potassium Sodium Chloride Glucose Lactate FiO2 Potassium Carbon Dioxide Anion Gap BUN Creatinine Est GFR ( Amer) Est GFR (Non-Af Amer) POC Glucose (mg/dL) 411 H* Random Glucose Calcium Magnesium Iron TIBC % Saturation Ferritin Total Bilirubin AST ALT Alkaline Phosphatase Lactate Dehydrogenase Total Protein Albumin Globulin Albumin/Globulin Ratio Vitamin B12 Folate TSH 3rd Generation Venous Blood Potassium Ur Random Creatinine IgA Complement C3 Complement C4 Hepatitis A IgM Ab Hep Bs Antigen Hep B Core IgM Ab Hepatitis C Antibody Anti-Streptolysin O Ab 06/28/17 06:30 WBC RBC Hgb Hct MCV MCH MCHC RDW Plt Count MPV Gran % Lymph % (Auto) Will % (Auto) Eos % (Auto) Baso % (Auto) Gran # Lymph # Will # Eos # Baso # Smear Path Review Retic Count Haptoglobin PT INR APTT pO2 VBG pH VBG pCO2 VBG HCO3 VBG Total CO2 VBG O2 Sat (Calc) VBG Base Excess VBG Potassium Sodium 141 Chloride 117 H Glucose Lactate FiO2 Potassium 3.7 Carbon Dioxide 15 L Anion Gap 13 BUN 14 Creatinine 1.0 Est GFR ( Amer) > 60 Est GFR (Non-Af Amer) 55 POC Glucose (mg/dL) Random Glucose 342 H* D Calcium 8.8 Magnesium Iron TIBC % Saturation Ferritin Total Bilirubin 0.6 AST 28 ALT 44 Alkaline Phosphatase 145 H Lactate Dehydrogenase Total Protein 6.7 Albumin 3.0 Globulin 3.7 Albumin/Globulin Ratio 0.8 L Vitamin B12 Folate TSH 3rd Generation Venous Blood Potassium Ur Random Creatinine IgA Complement C3 Complement C4 Hepatitis A IgM Ab Hep Bs Antigen Hep B Core IgM Ab Hepatitis C Antibody Anti-Streptolysin O Ab Assessment & Plan - Assessment and Plan (Free Text) Assessment: Concur with recommended biopsy Consult done under my supervision Izzy Moore MD FACS
[2017-06-27 07:30] LABS: BASO # 0.01 K/mm3 (0.0-2.0); BASO % 0.3 % (0.0-3.0); EOS % 0.3 % (1.5-5.0); GRAN # 3.05 (1.4-6.5); LYMPH # 0.3 (1.2-3.4); LYMPH % 8.8 % (22.0-35.0); MEAN CELL VOLUME 96.3 fl (80.0-105.0); MEAN CORPUSCULAR HEMOGLOBIN 31.7 pg (25.0-35.0); MEAN CORPUSCULAR HGB CONC 32.9 g/dl (31.0-37.0); MEAN PLATELET VOLUME 9.9 fl (7.0-11.0); MONO # 0.2 (0.1-0.6); MONO % 6.6 % (1.0-6.0); RED CELL DISTRIBUTION WIDTH 14.9 % (11.5-14.5); WHITE BLOOD COUNT 3.6 10^3/ul (4.5-11.0)
[2017-06-27 07:46] LABS: ALB/GLOB RATIO 0.8 (1.1-1.8); BILIRUBIN,TOTAL 0.7 mg/dL (0.2-1.3); CALCIUM 8.9 mg/dL (8.4-10.5); POTASSIUM 3.5 mmol/L (3.6-5.0); TOTAL PROTEIN 6.9 g/dL (5.8-8.3)
[2017-06-27 07:49] LABS: INR 1.56 (0.93-1.08); PARTIAL THROMBOPLASTIN TIME 34.3 Seconds (25.1-36.5)
[2017-06-27] MEDS: Insulin Lispro (humaLOG) LOW Coverage SC SCH ×3 (08:05→17:16)
[2017-06-27 08:14] LABS: RETIC% 2.46 % (0.5-1.5)
--- NOTE | 2017-06-27 08:21 | RAD ---
HISTORY: cough COMPARISON: 04/07/2017 TECHNIQUE: Chest PA and lateral FINDINGS: LUNGS: No active pulmonary disease. PLEURA: No significant pleural effusion identified. No pneumothorax apparent. CARDIOVASCULAR: Normal. OSSEOUS STRUCTURES: No significant abnormalities. VISUALIZED UPPER ABDOMEN: Normal. OTHER FINDINGS: None. IMPRESSION: No active disease.
[2017-06-27 08:33] LABS: IRON 46 ug/dL (45-180)
[2017-06-27] MEDS ORDERED: Potassium Chloride 40 mEq/30 ml LIQ UD PO ONE (08:44)
--- NOTE | 2017-06-27 09:56 | CARD ---
APPROVED REPORT EKG Measurement Heart [id number] <Conclusion> Sinus bradycardia LAD PRWP NSSTW changes No change except the rate is slower
[2017-06-27] MEDS ORDERED: MethylPREDNISolone 40 mg Vial IVP SCH (10:00)
[2017-06-27] MEDS: Lactobacillus Acidophilus 500 MU Cap PO SCH ×3 (10:34→17:19)
[2017-06-27] MEDS: Potassium Chloride 20 mEq ER Tab PO SCH (10:34)
[2017-06-27] MEDS: Mesalamine ER Cap 500 MG PO SCH ×2 (10:34→17:19)
--- NOTE | 2017-06-27 10:37 | CP.PCM.PN ---
Subjective - Date & Time of Evaluation Date of Evaluation: 06/27/17 Time of Evaluation: 07:30 - Subjective Subjective: Progress Note for [facility] Service Patient was seen and examined at bedside. Patient was in no acute distress. Was at the time having a skin biopsy of her lower extremity taken by the surgical team. Patient states that she slept well. She complains of itching burning and pain in her lower extremities. Denies abdominal pain, n/v/d, chest pain, shortness of breath, dysuria. Objective - Vital Signs/Intake and Output Vital Signs (last 24 hours): Temp Pulse Resp BP Pulse Ox 98.4 F 59 L 20 99/56 L 97 06/27/17 08:00 06/27/17 08:00 06/27/17 08:00 06/27/17 08:00 06/27/17 08:00 Intake and Output: 06/27/17 06/27/17 06:59 18:59 Intake Total 240 Balance 240 - Medications Medications: Current Medications Alprazolam (Xanax) 0.25 mg PO Q6H PRN; Protocol PRN Reason: Anxiety Stop: 07/03/17 19:39 Ascorbic Acid (Vitamin C 500 Mg Tab) 500 mg PO DAILY [facility] Cholecalciferol (Vitamin D) 2,000 iu PO DAILY [facility] Colchicine (Colocrys) 0.6 mg PO TID [facility] Diphenhydramine HCl (Benadryl) 25 mg PO TID [facility] Folic Acid (Folic Acid) 1 mg PO DAILY [facility] Gabapentin (Neurontin) 300 mg PO TID [facility] PRN Reason: Protocol Insulin Human Lispro (Humalog Low) 0 units SC ACHS [facility] PRN Reason: Protocol Last Admin: 06/27/17 08:05 Dose: Not Given Lactobacillus Acidophilus (Bacid Acidophilus) 1 cap PO TID [facility] Mesalamine (Pentasa) 500 mg PO BID [facility] Methylprednisolone (Solu-Medrol) 40 mg IVP Q8 [facility] Potassium Chloride (K-Dur 20 Meq Er Tab) 20 meq PO BRK [facility] Sertraline HCl (Zoloft) 100 mg PO DAILY [facility] - Labs Labs: 06/27/17 07:23 06/27/17 07:23 PT 17.3 SECONDS (9.4-12.5) H 06/27/17 07:23 INR 1.56 (0.93-1.08) H 06/27/17 07:23 APTT 34.3 Seconds (25.1-36.5) 06/27/17 07:23 - Constitutional Appears: Cachectic - Head Exam Head Exam: ATRAUMATIC, NORMAL INSPECTION - Eye Exam Eye Exam: EOMI, Normal appearance - ENT Exam ENT Exam: Mucous Membranes Moist, Normal Exam - Respiratory Exam Respiratory Exam: Clear to Ausculation Bilateral - Cardiovascular Exam Cardiovascular Exam: REGULAR RHYTHM, +S1, +S2 - GI/Abdominal Exam GI & Abdominal Exam: Soft, Normal Bowel Sounds - Extremities Exam Extremities Exam: Tenderness Additional comments: B/L palpable purpura - Neurological Exam Neurological Exam: Alert, Awake, Oriented x3 - Psychiatric Exam Psychiatric exam: Normal Affect, Normal Mood - Skin Skin Exam: Warm Assessment and Plan - Assessment and Plan (Free Text) Assessment: 71 year old female with history of DM II, RA, Chron's disease, SAH, hydronephrosis secondary to b/l staghorn calculi, UVJ reflux, Gram negative septicemia presenting with bilateral LE palpable non blanching purpura Plan: 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 Metabolic acidosis - VBG ordered; results pending - Nephrology consulted 3. Chron's -Mesalamine -Colchicine 4. Hypovitaminosis D - Cholecalciferol DVT/GI prophylaxis SCDs/Pepcid
[2017-06-27] MEDS ORDERED: Barium Sulfate Susp 2.1% w/v, 2.0% w/w 450 mL Bottle PO ONE (10:53)
--- NOTE | 2017-06-27 11:05 | CP.PCM.CON ---
History of Present Illness - History of Present Illness History of Present Illness: renal consult note 71F pmhx of DM, recurrent UTI,hx of renal stones, Crohn's disease is admited with acute bilateral lower extremity rash started 2 days ago , assoc with burning and itching.she denies any prior hx of kidney diseases. no urinary complaints Review of Systems - Review of Systems All systems: reviewed and no additional remarkable complaints except Past Patient History - Infectious Disease Hx of Infectious Diseases: None - Tetanus Immunizations Tetanus Immunization: Unknown - Past Social History Smoking Status: Never Smoked - CARDIAC Hx Hypertension: Yes - PULMONARY Hx Respiratory Disorders: Yes Hx Asthma: Yes - NEUROLOGICAL Hx Neurological Disorder: Yes - HEENT Hx HEENT Problems: No Hx Cataracts: Yes - RENAL Hx Chronic Kidney Disease: Yes Hx Kidney Stones: Yes Other/Comment: RENAL CALCULI - ENDOCRINE/METABOLIC Hx Diabetes Mellitus Type 2: Yes (NIDD) - HEMATOLOGICAL/ONCOLOGICAL Hx Blood Disorders: Yes - INTEGUMENTARY Hx Dermatological Problems: No - MUSCULOSKELETAL/RHEUMATOLOGICAL Hx Musculoskeletal Disorders: Yes (RIB INJURY) Hx Back Pain: Yes Hx Falls: Yes (FELL 12-21-16 SLIPPED OFF BED.ATTEMPTED TO GET UP.) Hx Fractures: Yes (ELBOW) Hx Unsteady Gait: Yes (CANE) Other/Comment: CERVICAL RADICULOPATHY - GASTROINTESTINAL Hx Gastrointestinal Disorders: Yes Hx Crohn's Disease: Yes Other/Comment: CHOLELITHAISIS. GASTRIC BYPASS - GENITOURINARY/GYNECOLOGICAL Hx Genitourinary Disorders: Yes (PYELONEPHRITIS,PSEUDOMONAS UTI,RENAL CA) Other/Comment: kidney stone - PSYCHIATRIC Hx Psychophysiologic Disorder: Yes Hx Depression: Yes Hx Emotional Abuse: No Hx Physical Abuse: No Hx Substance Use: No - SURGICAL HISTORY Hx Cholecystectomy: Yes Hx Gastric Bypass Surgery: Yes Other/Comment: kidney surgery - ANESTHESIA Hx Anesthesia: Yes Hx Anesthesia Reactions: No Hx Malignant Hyperthermia: No Meds Allergies/Adverse Reactions: Allergies Allergy/AdvReac Type Severity Reaction Status Date / Time cashew nut Allergy SWELLING Verified 06/26/17 15:39 latex Allergy ANAPHYLAXIS Verified 06/26/17 15:39 naproxen AdvReac SWELLING Verified 06/26/17 15:39 cashews Allergy SWELLING Uncoded 06/26/17 15:39 cats Allergy RASH Uncoded 06/26/17 15:39 - Medications Medications: Current Medications Alprazolam (Xanax) 0.25 mg PO Q6H PRN; Protocol PRN Reason: Anxiety Stop: 07/03/17 19:39 Ascorbic Acid (Vitamin C 500 Mg Tab) 500 mg PO DAILY [facility] Last Admin: 06/27/17 10:38 Dose: 500 mg Cholecalciferol (Vitamin D) 2,000 iu PO DAILY [facility] Colchicine (Colocrys) 0.6 mg PO TID [facility] Last Admin: 06/27/17 10:34 Dose: 0.6 mg Diphenhydramine HCl (Benadryl) 25 mg PO TID [facility] Famotidine (Pepcid) 40 mg PO HS [facility] Folic Acid (Folic Acid) 1 mg PO DAILY [facility] Last Admin: 06/27/17 10:34 Dose: 1 mg Gabapentin (Neurontin) 300 mg PO TID [facility] PRN Reason: Protocol Last Admin: 06/27/17 10:35 Dose: 300 mg Insulin Human Lispro (Humalog Low) 0 units SC ACHS [facility] PRN Reason: Protocol Last Admin: 06/27/17 08:05 Dose: Not Given Lactobacillus Acidophilus (Bacid Acidophilus) 1 cap PO TID [facility] Last Admin: 06/27/17 10:34 Dose: 1 cap Mesalamine (Pentasa) 500 mg PO BID [facility] Last Admin: 06/27/17 10:34 Dose: 500 mg Methylprednisolone (Solu-Medrol) 40 mg IVP Q8 [facility] Potassium Chloride (K-Dur 20 Meq Er Tab) 20 meq PO BRK [facility] Last Admin: 06/27/17 10:34 Dose: 20 meq Sertraline HCl (Zoloft) 100 mg PO DAILY [facility] Last Admin: 06/27/17 10:35 Dose: 100 mg Physical Exam - Constitutional Appears: Non-toxic, No Acute Distress - Head Exam Head Exam: NORMAL INSPECTION - Eye Exam Eye Exam: Normal appearance - ENT Exam ENT Exam: Mucous Membranes Moist - Respiratory Exam Respiratory Exam: NORMAL BREATHING PATTERN - Cardiovascular Exam Cardiovascular Exam: +S1, +S2 - GI/Abdominal Exam GI & Abdominal Exam: Soft - Neurological Exam Neurological exam: Alert, Oriented x3 - Psychiatric Exam Psychiatric exam: Normal Affect - Skin Skin Exam: Dry, Petechiae, Rash Results - Vital Signs Recent Vital Signs: Last Vital Signs Temp 98.4 F 06/27/17 08:00 Pulse 59 L 06/27/17 08:00 Resp 20 06/27/17 08:00 BP 99/56 L 06/27/17 08:00 Pulse Ox 97 06/27/17 08:00 - Labs Result Diagrams: 06/27/17 07:23 06/27/17 07:23 Labs: Laboratory Results - last 24 hr 06/26/17 06/27/17 06/27/17 21:00 07:07 07:11 WBC RBC Hgb Hct MCV MCH MCHC RDW Plt Count MPV Gran % Lymph % (Auto) [place] % (Auto) Eos % (Auto) Baso % (Auto) Gran # Lymph # [place] # Eos # Baso # Smear Path Review Retic Count 2.46 H PT INR APTT Sodium 144 Potassium 4.3 Chloride 120 H Carbon Dioxide 12 L Anion Gap 16 BUN 12 Creatinine 1.1 Est GFR ( Amer) 59 Est GFR (Non-Af Amer) 49 Random Glucose 145 H Calcium 8.6 Magnesium Iron TIBC % Saturation Total Bilirubin AST ALT Alkaline Phosphatase Total Protein Albumin Globulin Albumin/Globulin Ratio TSH 3rd Generation 0.51 06/27/17 06/27/17 06/27/17 07:12 07:23 07:23 WBC 3.6 L RBC 3.22 L Hgb 10.2 L Hct 31.0 L MCV 96.3 MCH 31.7 MCHC 32.9 RDW 14.9 H Plt Count 96 L MPV 9.9 Gran % 84.0 H Lymph % (Auto) 8.8 L [place] % (Auto) 6.6 H Eos % (Auto) 0.3 L Baso % (Auto) 0.3 Gran # 3.05 Lymph # 0.3 L [place] # 0.2 Eos # 0.0 Baso # 0.01 Smear Path Review Cancelled Retic Count PT 17.3 H INR 1.56 H APTT 34.3 Sodium Potassium Chloride Carbon Dioxide Anion Gap BUN Creatinine Est GFR ( Amer) Est GFR (Non-Af Amer) Random Glucose Calcium Magnesium Iron 46 TIBC 236 L % Saturation 20 Total Bilirubin AST ALT Alkaline Phosphatase Total Protein Albumin Globulin Albumin/Globulin Ratio TSH 3rd Generation 06/27/17 06/27/17 07:23 07:30 WBC RBC Hgb Hct MCV MCH MCHC RDW Plt Count MPV Gran % Lymph % (Auto) [place] % (Auto) Eos % (Auto) Baso % (Auto) Gran # Lymph # [place] # Eos # Baso # Smear Path Review Retic Count PT INR APTT Sodium 142 Potassium 3.5 L Chloride 116 H Carbon Dioxide 15 L Anion Gap 15 BUN 15 Creatinine 1.1 Est GFR ( Amer) 59 Est GFR (Non-Af Amer) 49 Random Glucose 228 H Calcium 8.9 Magnesium 1.9 Iron TIBC % Saturation Total Bilirubin 0.7 AST 37 H ALT 45 Alkaline Phosphatase 156 H Total Protein 6.9 Albumin 3.1 Globulin 3.8 Albumin/Globulin Ratio 0.8 L TSH 3rd Generation Assessment & Plan - Assessment and Plan (Free Text) Plan: CODY/hypokalemia/acidosis/purpura/renal stones/hematuria/pancytopenia cr is stable monitr UOP ct scan abdomen pending rash: puch biopsy planned send urine for proteinuria rheum consulted thank you for the consult
[2017-06-27 12:52] LABS: FOLATE > 20.0 ng/mL
[2017-06-27 13:50] LABS: IMMUNOGLOBULIN A 733.2 mg/dL (70.0-400.0)
[2017-06-27] MEDS: MethylPREDNISolone 40 mg Vial IVP SCH ×2 (14:20→21:24)
[2017-06-27] MEDS ORDERED: Sodium Chloride 0.9% 1,000 ML IV SCH (15:00)
--- NOTE | 2017-06-27 16:48 | CT ---
PROCEDURE: CT Chest, Abdomen and Pelvis without intravenous contrast HISTORY: cachexia COMPARISON: 04/09/2017 CT TECHNIQUE: Radiation dose: Total exam DLP = 430 mGy-cm. This CT exam was performed using one or more of the following dose reduction techniques: Automated exposure control, adjustment of the mA and/or kV according to patient size, and/or use of iterative reconstruction technique. FINDINGS: CT CHEST WITHOUT CONTRAST: LUNGS: Clear. No nodule, mass or consolidation. MEDIASTINUM: Unremarkable. Normal caliber aorta and pulmonary arterial trunk. Normal size heart. LYMPH NODES: Unremarkable. PLEURA: Unremarkable. No pneumothorax. No pleural fluid. BONES: Unremarkable. OTHER FINDINGS: Calcified coronary arteries CT ABDOMEN AND PELVIS: LIVER: Unremarkable. No gross lesion or ductal dilatation. GALLBLADDER AND BILE DUCTS: Gallbladder removed PANCREAS: Unremarkable. No gross lesion or ductal dilatation. SPLEEN: There is moderate splenomegaly. The spleen measures 17.8 cm AP and 6.5 cm wide ADRENALS: Unremarkable. No mass. KIDNEYS AND URETERS: Bilateral ureteral stents are seen. There is persistent hydronephrosis on the right. Multiple renal stones are seen including a large stone in the right renal pelvis measuring 2.8 cm diameter VASCULATURE: Unremarkable. No aortic aneurysm. BOWEL: Unremarkable. No obstruction. No gross mural thickening. There is a moderate degree of constipation. The previous study showed extensive colitis. This is no longer seen. APPENDIX: Normal appendix. PERITONEUM: Unremarkable. No free fluid. No free air. LYMPH NODES: Unremarkable. No enlarged lymph nodes. BLADDER: Unremarkable. REPRODUCTIVE: Unremarkable. BONES: No acute fracture. OTHER FINDINGS: None. IMPRESSION: No acute findings. See comments
[2017-06-27 17:20] LABS: VENOUS BLOOD GAS BASE EXCESS -13.9 mmol/L (0.0-2.0); VENOUS BLOOD PH 7.21 (7.32-7.43)
[2017-06-27 20:38] VITALS: RESP 18
[2017-06-27 21:00] LABS: VENOUS BLOOD GAS BASE EXCESS -12.3 mmol/L (0.0-2.0); VENOUS BLOOD PH 7.21 (7.32-7.43)
[2017-06-27] MEDS ORDERED: Insulin Lispro (humaLOG) MEDIUM Coverage SC SCH (22:00)
[2017-06-28] MEDS ORDERED: Insulin Lispro 1 UNITS/0.01 ML SC ONE (03:39)
[2017-06-28 06:39] LABS: GRAN # 2.53 (1.4-6.5); GRAN % 87.2 % (50.0-68.0); HEMATOCRIT 27.9 % (36.0-48.0); LYMPH # 0.2 (1.2-3.4); LYMPH % 7.6 % (22.0-35.0); MEAN CELL VOLUME 94.9 fl (80.0-105.0); MEAN CORPUSCULAR HGB CONC 33.7 g/dl (31.0-37.0); MEAN PLATELET VOLUME 9.6 fl (7.0-11.0); MONO # 0.2 (0.1-0.6); MONO % 5.2 % (1.0-6.0); RED CELL DISTRIBUTION WIDTH 14.9 % (11.5-14.5)
[2017-06-28 07:03] LABS: WHITE BLOOD COUNT 2.9 10^3/ul (4.5-11.0)
[2017-06-28 07:05] LABS: ALB/GLOB RATIO 0.8 (1.1-1.8); ALKALINE PHOSPHATASE 145 U/L (38-126); ALT/SGPT 44 U/L (7-56); AST/SGOT 28 U/L (14-36); BILIRUBIN,TOTAL 0.6 mg/dL (0.2-1.3); BLOOD UREA NITROGEN 14 mg/dL (7-21); CALCIUM 8.8 mg/dL (8.4-10.5); CARBON DIOXIDE 15 mmol/L (21-33); CHLORIDE 117 mmol/L (95-110); GFR AFRICAN-AMERICAN > 60; POTASSIUM 3.7 mmol/L (3.6-5.0); SODIUM 141 mmol/L (132-148); TOTAL PROTEIN 6.7 g/dL (5.8-8.3)
[2017-06-28] MEDS ORDERED: Sodium Chloride 0.9% 1,000 ML IV SCH (07:06)
[2017-06-28] MEDS: MethylPREDNISolone 40 mg Vial IVP SCH (07:15)
[2017-06-28 07:17] VITALS: BP 99/57; PULSE 65; TEMP 97.5; O2SAT 96
[2017-06-28 07:31] LABS: GLUCOSE,RANDOM 342 mg/dL (70-110); INR 1.51 (0.93-1.08); PARTIAL THROMBOPLASTIN TIME 30.5 Seconds (25.1-36.5)
[2017-06-28] MEDS: Potassium Chloride 20 mEq ER Tab PO SCH (08:06)
[2017-06-28] MEDS: Insulin Lispro (HUMAlog) HIGH Coverage SC SCH ×2 (08:06→11:59)
[2017-06-28] MEDS ORDERED: MethylPREDNISolone 40 mg Vial IVP SCH (09:09)
--- NOTE | 2017-06-28 09:56 | CP.PCM.PN ---
Subjective - Date & Time of Evaluation Date of Evaluation: 06/28/17 Time of Evaluation: 09:52 - Subjective Subjective: PGY1 General Surgery Note for Dr. Russell (Dr. Moore covering) Patient seen and examined this morning at bedside. No acute events overnight. Patient states she is currently in no pain. Patient reports some itching throughout the night that was relieved with Benadryl. Denies any complaints at this time. Objective - Vital Signs/Intake and Output Vital Signs (last 24 hours): Temp Pulse Resp BP Pulse Ox 97.5 F L 65 18 99/57 L 96 06/28/17 07:16 06/28/17 07:16 06/28/17 07:16 06/28/17 07:16 06/28/17 07:16 Intake and Output: 06/28/17 06/28/17 06:59 18:59 Intake Total 900 Balance 900 - Medications Medications: Current Medications Alprazolam (Xanax) 0.25 mg PO Q6H PRN; Protocol PRN Reason: Anxiety Stop: 07/03/17 19:39 Ascorbic Acid (Vitamin C 500 Mg Tab) 500 mg PO DAILY [facility] Last Admin: 06/27/17 10:38 Dose: 500 mg Cholecalciferol (Vitamin D) 2,000 iu PO DAILY [facility] Last Admin: 06/27/17 11:59 Dose: 2,000 iu Colchicine (Colocrys) 0.6 mg PO TID [facility] Last Admin: 06/27/17 17:19 Dose: 0.6 mg Diphenhydramine HCl (Benadryl) 25 mg PO TID PRN PRN Reason: Itching / Pruritus Last Admin: 06/28/17 04:07 Dose: 25 mg Docusate Sodium (Colace) 100 mg PO BID [facility] Famotidine (Pepcid) 40 mg PO HS [facility] Last Admin: 06/27/17 21:20 Dose: 40 mg Folic Acid (Folic Acid) 1 mg PO DAILY [facility] Last Admin: 06/27/17 10:34 Dose: 1 mg Gabapentin (Neurontin) 300 mg PO HS [facility] PRN Reason: Protocol Last Admin: 06/27/17 21:16 Dose: 300 mg Sodium Chloride (Sodium Chloride 0.9%) 1,000 mls @ 150 mls/hr IV .Q6H40M [facility] Last Admin: 06/28/17 07:16 Dose: Not Given Insulin Human Lispro (Humalog High) 0 units SC ACHS [facility] PRN Reason: Protocol Last Admin: 06/28/17 08:06 Dose: 7 units Lactobacillus Acidophilus (Bacid Acidophilus) 1 cap PO TID [facility] Last Admin: 06/27/17 17:19 Dose: 1 cap Mesalamine (Pentasa) 500 mg PO BID [facility] Last Admin: 06/27/17 17:19 Dose: 500 mg Methylprednisolone (Solu-Medrol) 30 mg IVP Q8 [facility] Polyethylene Glycol (Miralax) 17 gm PO DAILY [facility] Potassium Chloride (K-Dur 20 Meq Er Tab) 20 meq PO BRK [facility] Last Admin: 06/28/17 08:06 Dose: 20 meq Sertraline HCl (Zoloft) 100 mg PO DAILY [facility] Last Admin: 06/27/17 10:35 Dose: 100 mg Sodium Bicarbonate (Sodium Bicarbonate Tab) 650 mg PO Q6 [facility] - Labs Labs: 06/28/17 06:30 06/28/17 06:30 PT 16.8 SECONDS (9.4-12.5) H 06/28/17 06:30 INR 1.51 (0.93-1.08) H 06/28/17 06:30 APTT 30.5 Seconds (25.1-36.5) 06/28/17 06:30 - Constitutional Appears: Non-toxic, No Acute Distress - Head Exam Head Exam: ATRAUMATIC, NORMOCEPHALIC - Eye Exam Eye Exam: EOMI, Normal appearance. absent: Scleral icterus - ENT Exam ENT Exam: Mucous Membranes Moist - Neck Exam Neck Exam: Full ROM - Respiratory Exam Respiratory Exam: NORMAL BREATHING PATTERN. absent: Accessory Muscle Use, Respiratory Distress - GI/Abdominal Exam GI & Abdominal Exam: Soft. absent: Distended, Firm, Guarding, Rigid, Tenderness - Extremities Exam Extremities Exam: Joint Swelling. absent: Calf Tenderness, Pedal Edema Additional comments: bilateral LE petichial rash, non-blanching, non-raised. - Neurological Exam Neurological Exam: Alert, Awake, Oriented x3 - Psychiatric Exam Psychiatric exam: Normal Affect, Normal Mood - Skin Skin Exam: Dry, Warm Assessment and Plan - Assessment and Plan (Free Text) Assessment: 71F with bilateral lower extremity non-blanching palpable petichae Plan: - punch biopsy x2 performed at bedside yesterday - f/u biopsy pathology results - no surgical intervention needed at this time - medical management per primary team Case discussed with Dr. Moore (Dr. Russell) Jovanni Oscar PGY1
[2017-06-28 10:00] LABS: URINE BILIRUBIN NEGATIVE (NEGATIVE); URINE BLOOD LARGE (NEGATIVE); URINE GLUCOSE (UA) >=1000 mg/dL (NEGATIVE); URINE KETONE NEGATIVE (NEGATIVE); URINE LEUKOCYTE ESTERASE MODERATE Leu/uL (NEGATIVE); URINE PROTEIN TRACE mg/dL (<30 mg/dL); URINE UROBILINOGEN 0.2 E.U./dL (<1 E.U./dL)
[2017-06-28] MEDS ORDERED: POLYETHYLENE GLYCOL 3350 17 GM/Dose PACKET PO SCH (10:00)
[2017-06-28 10:01] LABS: URINE APPEARANCE SL CLOUDY (CLEAR); URINE COLOR LIGHT YELLOW (YELLOW)
[2017-06-28 10:12] LABS: URINE BACTERIA FEW (NEG); URINE RBC 15 - 20 /hpf (0-2)
[2017-06-28] MEDS: Lactobacillus Acidophilus 500 MU Cap PO SCH ×2 (10:44→13:36)
[2017-06-28] MEDS: Mesalamine ER Cap 500 MG PO SCH (10:44)
--- NOTE | 2017-06-28 10:59 | CON ---
DATE: 06/27/2017 RECENT FOR CONSULTATION: Thrombocytopenia and now with acute purpura. HISTORY OF PRESENT ILLNESS: The patient is a 71-year-old female with past medical history significant for diabetes, recurrent UTI, ureterovesical junction reflux, Crohn's disease, renal stone, history of subdural hematoma post fall approximately 2 months ago. She also has a known history of pancytopenia, bone marrow examination done in the past has been negative for any acute pathology. She also has no evidence of myeloma. She is now admitted with acute petechial rash and hypokalemia. She states that she has been having bilateral lower extremity rash for approximately a week now. Denies any recent fevers, no active bleeding from any other sources. No melena, no hematochezia, no hematuria. No chest pain, no shortness of breath, no joint pain, and no other complaints. PAST MEDICAL HISTORY: As above. Diabetes type 2, renal stones, Crohn's disease, history of traumatic subdural hematoma, and hydronephrosis. SOCIAL HISTORY: Positive for former alcohol use, but denies any current use. She does smoke. Denies any illicit drug use. FAMILY HISTORY: Otherwise noncontributory except for history of known cardiac disease in the family. MEDICATIONS: Her medications at home include Xanax, vitamin C, Biotin, cefepime, Benadryl, folic acid, gabapentin, glyburide, metformin, Pentasa, and Zoloft. REVIEW OF SYSTEMS: As per the HPI. PHYSICAL EXAMINATION VITAL SIGNS: Reveal a temperature of 98.4, pulse of 59, respiratory rate of 20, and a blood pressure of 99/56. GENERAL: The patient is an elderly pleasant female, lying in bed, in no acute distress. HEENT: Head and neck; normocephalic and atraumatic. Eyes; pupils are equal, round and reactive to light and accommodation. Extraocular muscles are intact. There is pallor. No icterus is noted. NECK: Supple with no adenopathy. No JVD. No thyromegaly. LUNGS: Decreased breath sounds bilaterally with no rales or rhonchi. CARDIOVASCULAR: S1 and S2 is heard. ABDOMEN: Positive bowel sounds. Soft, nontender, nondistended. No organomegaly is palpated. EXTREMITIES: There is bilateral lower extremity edema with petechial rash all over. LABORATORY DATA: Her white count is 3.6, hemoglobin 10.2, hematocrit 31.9, MCV of 96.3, and a platelet count of 96,0000. Chemistries are within normal limits. ASSESSMENT AND PLAN: Elderly female with known pancytopenia, no evidence of bone marrow pathology on bone marrow done recently, currently with this petechial rash, possible vasculitis. We will discuss with Dr. Browne. Probably will benefit from a steroid course. Thank you for the consult. We will follow. Raffy Wynn MD
[2017-06-28] MEDS ORDERED: Cefepime 1gm in NS 100ml 1 GM/100 ML BAG IVPB ONE (13:30)
--- NOTE | 2017-06-28 15:45 | CP.PCM.PN ---
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 thank you please call us if any qs @ [phone] Objective - Vital Signs/Intake and Output Vital Signs (last 24 hours): Temp Pulse Resp BP Pulse Ox 97.5 F L 65 18 99/57 L 96 06/28/17 07:16 06/28/17 07:16 06/28/17 07:16 06/28/17 07:16 06/28/17 07:16 Intake and Output: 06/28/17 06/28/17 06:59 18:59 Intake Total 900 Balance 900 - Medications Medications: Current Medications Alprazolam (Xanax) 0.25 mg PO Q6H PRN; Protocol PRN Reason: Anxiety Stop: 07/03/17 19:39 Ascorbic Acid (Vitamin C 500 Mg Tab) 500 mg PO DAILY [facility] Last Admin: 06/28/17 10:44 Dose: 500 mg Cholecalciferol (Vitamin D) 2,000 iu PO DAILY [facility] Last Admin: 06/28/17 10:45 Dose: 2,000 iu Colchicine (Colocrys) 0.6 mg PO TID [facility] Last Admin: 06/28/17 13:36 Dose: 0.6 mg Diphenhydramine HCl (Benadryl) 25 mg PO TID PRN PRN Reason: Itching / Pruritus Last Admin: 06/28/17 04:07 Dose: 25 mg Docusate Sodium (Colace) 100 mg PO BID [facility] Last Admin: 06/28/17 10:45 Dose: 100 mg Famotidine (Pepcid) 40 mg PO HS [facility] Last Admin: 06/27/17 21:20 Dose: 40 mg Folic Acid (Folic Acid) 1 mg PO DAILY [facility] Last Admin: 06/28/17 10:44 Dose: 1 mg Gabapentin (Neurontin) 300 mg PO HS [facility] PRN Reason: Protocol Last Admin: 06/27/17 21:16 Dose: 300 mg Sodium Chloride (Sodium Chloride 0.9%) 1,000 mls @ 150 mls/hr IV .Q6H40M [facility] Last Admin: 06/28/17 07:16 Dose: Not Given Insulin Human Lispro (Humalog High) 0 units SC ACHS [facility] PRN Reason: Protocol Last Admin: 06/28/17 11:59 Dose: 10 units Lactobacillus Acidophilus (Bacid Acidophilus) 1 cap PO TID [facility] Last Admin: 06/28/17 13:36 Dose: 1 cap Mesalamine (Pentasa) 500 mg PO BID [facility] Last Admin: 06/28/17 10:44 Dose: 500 mg Methylprednisolone (Solu-Medrol) 30 mg IVP Q8 [facility] Last Admin: 06/28/17 13:36 Dose: 30 mg Potassium Chloride (K-Dur 20 Meq Er Tab) 20 meq PO BRK [facility] Last Admin: 06/28/17 08:06 Dose: 20 meq Sertraline HCl (Zoloft) 100 mg PO DAILY [facility] Last Admin: 06/28/17 10:44 Dose: 100 mg Sodium Bicarbonate (Sodium Bicarbonate Tab) 650 mg PO Q6 [facility] Last Admin: 06/28/17 12:00 Dose: 650 mg - Labs Labs: 06/28/17 06:30 06/28/17 06:30 PT 16.8 SECONDS (9.4-12.5) H 06/28/17 06:30 INR 1.51 (0.93-1.08) H 06/28/17 06:30 APTT 30.5 Seconds (25.1-36.5) 06/28/17 06:30
--- NOTE | 2017-06-28 19:05 | CP.PCM.DIS ---
Provider - Provider Date of Admission: 06/26/17 18:12 Attending physician: Oleg Browne MD Primary care physician: Oleg Browne MD Time Spent in preparation of Discharge (in minutes): 45 Diagnosis - Discharge Diagnosis (1) Diarrhea Status: Acute (2) Vasculitis Status: Acute (3) Weight loss Status: Acute (4) Hypokalemia Status: Chronic Priority: Medium (5) Renal calculi Status: Chronic Priority: Medium (6) UTI (urinary tract infection) Status: Chronic Priority: Medium (7) Diabetes mellitus Status: Chronic Priority: Medium Hospital Course - Lab Results Lab Results: Micro Results 06/26/17 21:00 Blood Blood Culture - Preliminary NO GROWTH AFTER 24 HOURS 06/26/17 20:30 Blood Blood Culture - Preliminary NO GROWTH AFTER 24 HOURS Most Recent Lab Values WBC 2.9 10^3/ul (4.5-11.0) L* 06/28/17 06:30 RBC 2.94 10^6/uL (3.5-6.1) L 06/28/17 06:30 Hgb 9.4 g/dL (12.0-16.0) L 06/28/17 06:30 Hct 27.9 % (36.0-48.0) L 06/28/17 06:30 MCV 94.9 fl (80.0-105.0) 06/28/17 06:30 MCH 32.0 pg (25.0-35.0) 06/28/17 06:30 MCHC 33.7 g/dl (31.0-37.0) 06/28/17 06:30 RDW 14.9 % (11.5-14.5) H 06/28/17 06:30 Plt Count 72 10^3/uL (120.0-450.0) L 06/28/17 06:30 MPV 9.6 fl (7.0-11.0) 06/28/17 06:30 Gran % 87.2 % (50.0-68.0) H 06/28/17 06:30 Lymph % (Auto) 7.6 % (22.0-35.0) L 06/28/17 06:30 [place] % (Auto) 5.2 % (1.0-6.0) 06/28/17 06:30 Eos % (Auto) 0.0 % (1.5-5.0) L 06/28/17 06:30 Baso % (Auto) 0.0 % (0.0-3.0) 06/28/17 06:30 Gran # 2.53 (1.4-6.5) 06/28/17 06:30 Lymph # 0.2 (1.2-3.4) L 06/28/17 06:30 [place] # 0.2 (0.1-0.6) 06/28/17 06:30 Eos # 0.0 (0.0-0.7) 06/28/17 06:30 Baso # 0.00 K/mm3 (0.0-2.0) 06/28/17 06:30 Smear Path Review Cancelled 06/27/17 07:23 ESR 40 mm/hr (0.0-20.0) H 06/26/17 16:25 Retic Count 2.46 % (0.5-1.5) H 06/27/17 07:07 Haptoglobin 26 mg/dL (43-212) L 06/27/17 10: PT 16.8 SECONDS (9.4-12.5) H 06/28/17 06:30 INR 1.51 (0.93-1.08) H 06/28/17 06:30 APTT 30.5 Seconds (25.1-36.5) 06/28/17 06:30 pO2 35 mm/Hg (30-55) 06/27/17 20:55 VBG pH 7.21 (7.32-7.43) L 06/27/17 20:55 VBG pCO2 37.0 (40-60) L 06/27/17 20:55 VBG HCO3 14.8 mmol/l (21-28) L 06/27/17 20:55 VBG Total CO2 15.9 mmol.L (22-28) L 06/27/17 20:55 VBG O2 Sat (Calc) 67.0 % (40-65) H 06/27/17 20:55 VBG Base Excess -12.3 mmol/L (0.0-2.0) L 06/27/17 20:55 VBG Potassium 3.7 mmol/L (3.6-5.2) 06/27/17 20:55 Sodium 138.0 mmol/L (132-148) 06/27/17 20:55 Chloride 112.0 mmol/L (98-107) H 06/27/17 20:55 Glucose 497 mg/dl (65-105) H* D 06/27/17 20:55 Lactate 3.2 mmol/L (0.7-2.1) H 06/27/17 20:55 FiO2 21.0 % 06/27/17 20:55 Sodium 141 mmol/L (132-148) 06/28/17 06:30 Potassium 3.7 mmol/L (3.6-5.0) 06/28/17 06:30 Chloride 117 mmol/L (95-110) H 06/28/17 06:30 Carbon Dioxide 15 mmol/L (21-33) L 06/28/17 06:30 Anion Gap 13 (10-20) 06/28/17 06:30 BUN 14 mg/dL (7-21) 06/28/17 06:30 Creatinine 1.0 mg/dL (0.7-1.2) 06/28/17 06:30 Est GFR ( Amer) > 60 06/28/17 06:30 Est GFR (Non-Af Amer) 55 06/28/17 06:30 POC Glucose (mg/dL) 307 mg/dL (65-110) H 06/28/17 11:41 Random Glucose 342 mg/dL (70-110) H* D 06/28/17 06:30 Hemoglobin A1c 6.2 % (4.2-6.5) 06/28/17 06:30 Lactic Acid 2.3 mmol/L (0.7-2.1) H 06/28/17 07:30 Calcium 8.8 mg/dL (8.4-10.5) 06/28/17 06:30 Magnesium 1.9 mg/dL (1.7-2.2) 06/27/17 07:30 Iron 46 ug/dL (45-180) 06/27/17 07:12 TIBC 236 ug/dL (265-497) L 06/27/17 07:12 % Saturation 20 % (20-55) 06/27/17 07:12 Ferritin 210.0 ng/mL 06/27/17 07:10 Total Bilirubin 0.6 mg/dL (0.2-1.3) 06/28/17 06:30 AST 28 U/L (14-36) 06/28/17 06:30 ALT 44 U/L (7-56) 06/28/17 06:30 Alkaline Phosphatase 145 U/L (38-126) H 06/28/17 06:30 Lactate Dehydrogenase 391 U/L (333-699) 06/27/17 10:30 C-Reactive Prot, Quant 2.5 mg/L (<8.0) 06/26/17 16:25 Total Protein 6.7 g/dL (5.8-8.3) 06/28/17 06:30 Albumin 3.0 g/dL (3.0-4.8) 06/28/17 06:30 Globulin 3.7 gm/dL 06/28/17 06:30 Albumin/Globulin Ratio 0.8 (1.1-1.8) L 06/28/17 06:30 Vitamin B12 899 pg/mL (239-931) 06/27/17 07:10 Folate > 20.0 ng/mL 06/27/17 07:10 TSH 3rd Generation 0.51 mIU/mL (0.46-4.68) 06/27/17 07:11 Venous Blood Potassium 3.7 mmol/L (3.6-5.2) 06/27/17 20:55 Urine Color Light yellow (YELLOW) 06/28/17 09:50 Urine Appearance Sl cloudy (CLEAR) 06/28/17 09:50 Urine pH 6.0 (4.7-8.0) 06/28/17 09:50 Ur Specific [place] 1.010 (1.005-1.035) 06/28/17 09:50 Urine Protein Trace mg/dL (<30 mg/dL) H 06/28/17 09:50 Urine Glucose (UA) >=1000 mg/dL (NEGATIVE) 06/28/17 09:50 Urine Ketones Negative mg/dL (NEGATIVE) 06/28/17 09:50 Urine Blood Large (NEGATIVE) H 06/28/17 09:50 Urine Nitrate Positive (NEGATIVE) H 06/28/17 09:50 Urine Bilirubin Negative (NEGATIVE) 06/28/17 09:50 Urine Urobilinogen 0.2 E.U./dL (<1 E.U./dL) 06/28/17 09:50 Ur Leukocyte Esterase Moderate Fifi/uL (NEGATIVE) H 06/28/17 09:50 Urine RBC 15 - 20 /hpf (0-2) 06/28/17 09:50 Urine WBC 10 - 15 /hpf (0-6) 06/28/17 09:50 Ur Epithelial Cells 1 - 3 /hpf (0-5) 06/28/17 09:50 Urine Bacteria Few (NEG) 06/28/17 09:50 Urine Other Uyeast 06/28/17 09:50 Ur Random Creatinine 20 mg/dL 06/27/17 20:59 U Random Total Protein 45 mg/L 06/28/17 09:50 Ur Random Sodium 64 meq/L 06/28/17 09:50 Ur Random Potassium 8.8 meq/L 06/28/17 09:50 IgA 733.2 mg/dL (70.0-400.0) H 06/26/17 21:00 Proteinase 3 (PR3) <1.0 AI (<1.0) 06/27/17 10:30 Myeloperoxidase Ab <1.0 AI (<1.0) 06/27/17 10:30 Complement C3 85.0 mg/dL (88.0-165.0) L 06/26/17 21:00 Complement C4 16.4 mg/dL (14.0-44.0) 06/26/17 21:00 Hepatitis A IgM Ab Negative (NEGATIVE) 06/27/17 10:30 Hep Bs Antigen Negative (NEGATIVE) 06/27/17 10:30 Hep B Core IgM Ab Negative (NEGATIVE) 06/27/17 10:30 Hepatitis C Antibody Negative (NEGATIVE) 06/27/17 10:30 HIV 1&2 Ag/Ab, 4th Gen Nonreactive (Nonreactive) 06/27/17 07:04 Anti-Streptolysin O Ab 290 IU/mL (<200) H 06/26/17 21:00 - Hospital Course Hospital Course: Patient is a 71 year old female with past medical history of RA, Chron's, chronic UTIs, gram negative kayley septicemia who presented to [facility] [place] [facility] on 06/22/17 with complaints of itching burning bilateral lower extremities. Upon physical exam patient was found to have bilateral non blancheable palpable purpura. Patient's labs revealed pancytopenia, hyperglycemia, and UTI. 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 Pancytopenia on lab was confirmed with pancytopenia on peripheral smear as read by pathology. Patient was started on steroids for vasculitis treatment and received benadryl for itching of lower extremities. Prior to admission patient had stated that the pain which was initially present in the lower extremities resolved and the itchiness had diminished. UA initially revealed presence of UTI for which patient had just completed her 10 day cefipime antibiotic treatment. UA was repeated and demonstrated a decrease in leukocyte esterase. Further outpatient evaluation and treatment was discussed with patient. Patient agreed with plan of care. Patient was instructed to have stitches from biopsy removed, follow up with PMD Dr. Browne in 1 week, make an appointment for nephrology, follow up with urology regarding renal stone; patient states she will have surgery on 07/03 to correct her UVR which may be causing her chronic UTIs. Patient was sent home with instructions regarding to steroid prescription as well as DM II medication change from PO to insulin; with proper instructions on how to administer. Discharge Exam - Head Exam Head Exam: ATRAUMATIC, NORMAL INSPECTION - Eye Exam Eye Exam: EOMI, Normal appearance - ENT Exam ENT Exam: Mucous Membranes Moist, Normal Exam - Respiratory Exam Respiratory Exam: NORMAL BREATHING PATTERN - Cardiovascular Exam Cardiovascular Exam: REGULAR RHYTHM, +S1, +S2 - GI/Abdominal Exam GI & Abdominal Exam: Normal Bowel Sounds, Unremarkable - Extremities Exam Additional comments: B/L LE palpable purpura - Neurological Exam Neurological exam: Alert, CN II-XII Intact, Oriented x3 - Psychiatric Exam Psychiatric exam: Normal Affect, Normal Mood - Skin Skin Exam: Normal Color, Warm Discharge Plan - Discharge Medications Prescriptions: Insulin Aspart [Novolog FLEXPEN] 100 unit SC ACHS #100 unit predniSONE [Prednisone] 10 mg PO DAILY #17 tab - Follow Up Plan Condition: STABLE Disposition: HOME/ ROUTINE Instructions: Urinary Tract Infection in Women (GEN), Hypokalemia (GEN), Diabetes Mellitus Type 2 in Adults (DC), Fall Prevention for Older Adults (GEN) , Thrombocytopenic Purpura (DC) Additional Instructions: Patient should have stitch from biopsy removed anytime from July 05 to July 08. Please follow up with Dr Browne in 1 week Please call the phone number on the card for nephrology appointment Please follow up with the urologist for the renal stone Please take the steroid as prescribed Stop the diabetic pills ( metformin/glimepiride), use insulin instead while on steroid. Please return if the symptoms persists or worsens. Referrals: Oleg Browne MD [Primary Care Provider] - Chad Jernigan MD [Staff Provider] - Ant Horvath MD [Medical Doctor] -
[2017-06-29 05:08] LABS: CARDIOLIPIN AB (IGA) <11 APL (<=11); PHOSPHATIDYLSERINE AB IGM <25 U/mL (<25)
[2017-06-29 07:15] LABS: CHLORIDE URINE 69 mmol/L (32-290)
[2017-06-29 07:15] LABS: B2 GLYCOPROTEIN I AB(IGA) <9 SAU (<=20); B2 GLYCOPROTEIN I AB(IGG) <9 SGU (<=20); B2 GLYCOPROTEIN I AB(IGM) <9 SMU (<=20); PHOSPHATIDYLSERINE AB IGA <20 U/mL (<20)
== END 2017-06-28 18:00 | disposition home or self-care (01) | DRG 392 ==
LOC: ED 15:15 → ERH 18:12 → 5RSO 23:25
PROVIDERS: ADMIT Internal Medicine; ATTEND Internal Medicine
PROC: 0HBLXZX Excision of Left Lower Leg Skin, External Approach, Diagnostic (ICD-10-PCS; principal; 2017-06-28)
PROC: 0HBKXZX Excision of Right Lower Leg Skin, External Approach, Diagnostic (ICD-10-PCS; 2017-06-28)
DX: R19.7 Diarrhea, unspecified (principal); D61.818 Other pancytopenia; E11.22 Type 2 diabetes mellitus with diabetic chronic kidney disease; E11.65 Type 2 diabetes mellitus with hyperglycemia; D69.2 Other nonthrombocytopenic purpura; N39.0 Urinary tract infection, site not specified; K50.90 Crohn's disease, unspecified, without complications; I77.6 Arteritis, unspecified; N20.0 Calculus of kidney; N18.9 Chronic kidney disease, unspecified; K21.9 Gastro-esophageal reflux disease without esophagitis; J45.909 Unspecified asthma, uncomplicated; I12.9 Hypertensive chronic kidney disease with stage 1 through stage 4 chronic kidney disease, or unspecified chronic kidney disease; E87.6 Hypokalemia; F17.200 Nicotine dependence, unspecified, uncomplicated; Z79.899 Other long term (current) drug therapy; Z85.528 Personal history of other malignant neoplasm of kidney; Z87.440 Personal history of urinary (tract) infections; Z87.442 Personal history of urinary calculi; Z90.49 Acquired absence of other specified parts of digestive tract; Z91.81 History of falling; Z98.84 Bariatric surgery status; R26.81 Unsteadiness on feet; M54.12 Radiculopathy, cervical region; F32.89 Other specified depressive episodes; R63.4 Abnormal weight loss

== ENCOUNTER 2018-02-05 08:09 | Day surgery (SDC) | payer MEDICARE ==
[2018-02-01 12:37] VITALS: BMI 21.5
[2018-02-05] MEDS ORDERED: Propofol 10 mg/ml Inj (20 ML) ONE (09:24)
[2018-02-05] MEDS ORDERED: Sodium Chloride 0.9% 1,000 ML IV SCH (10:15)
[2018-02-05 11:00] VITALS: BP 110/52; PULSE 68; RESP 18; TEMP 98.2; O2SAT 99
== END 2018-02-05 11:23 | disposition home or self-care (01) ==
LOC: ENDO 08:09
PROVIDERS: ATTEND Internal Medicine Gastroenterology
DX: K22.10 Ulcer of esophagus without bleeding (principal); I85.00 Esophageal varices without bleeding; K21.0 Gastro-esophageal reflux disease with esophagitis; K25.9 Gastric ulcer, unspecified as acute or chronic, without hemorrhage or perforation; K28.9 Gastrojejunal ulcer, unspecified as acute or chronic, without hemorrhage or perforation; K29.50 Unspecified chronic gastritis without bleeding; K44.9 Diaphragmatic hernia without obstruction or gangrene; R63.4 Abnormal weight loss; R19.7 Diarrhea, unspecified; E11.9 Type 2 diabetes mellitus without complications; Z87.442 Personal history of urinary calculi
CPT/HCPCS: 43239; 82948; 88305; 88342; J2704; J7030; J7040

== ENCOUNTER 2018-07-11 04:55 | Inpatient (IN) | payer MEDICARE, OTHER ==
--- NOTE | 2018-07-11 05:24 | ED PDOC ---
Arrival/HPI - General Time Seen by Provider: 07/11/18 05:09 Historian: Patient - History of Present Illness Narrative History of Present Illness (Text): 07/11/18 05:24 72 year old female, whose past medical history includes, hypotensive, DM2, recurrent UTI, urethral vesicular junctional reflux, Crohn's disease, renal stones, and h/o subdural hematoma, Appendectomy, and Cholecystecomy, presents to the emergency department complaining of worsening fever and chills tonight. Patient also reports leg swelling, diarrhea, and lower back pain, but denies any chest pain, shortness of breath, abdominal pain, nausea, vomiting, urinary symptoms, neck pain, headache, dizziness, or any other complaints. PMD: Dr. Oleg Browne Symptom Onset: Gradual Symptom Course: Unchanged Activities at Onset: Light Context: Home Past Medical History - Provider Review Nursing Documentation Reviewed: Yes - Infectious Disease Hx of Infectious Diseases: None - Tetanus Immunization Tetanus Immunization: Unknown - Past Medical History Past Medical History: No Previous - Cardiac Hx Pacemaker: No - Pulmonary Hx Respiratory Disorders: Yes Hx Asthma: Yes - Neurological Hx Paralysis: No - HEENT Hx HEENT Disorder: No Hx Cataracts: Yes - Renal Hx Renal Disorder: Yes Hx Kidney Stones: Yes Other/Comment: RENAL CALCULI - Endocrine/Metabolic Hx Diabetes Mellitus Type 2: Yes (NIDD) - Hematological/Oncological Hx Blood Transfusions: Yes (2014) Hx Blood Transfusion Reaction: No - Integumentary Hx Dermatological Disorder: No - Musculoskeletal/Rheumatological Hx Musculoskeletal Disorders: Yes (RIB INJURY) - Gastrointestinal Hx Gastrointestinal Disorders: Yes Hx Crohn's Disease: Yes Other/Comment: CHOLELITHAISIS. GASTRIC BYPASS - Genitourinary/Gynecological Hx Genitourinary Disorders: Yes (PYELONEPHRITIS,PSEUDOMONAS UTI,RENAL CA) Other/Comment: kidney stone - Psychiatric Hx Emotional Abuse: No Hx Physical Abuse: No Hx Substance Use: No - Surgical History Hx Cholecystectomy: Yes Hx Gastric Bypass Surgery: Yes Other/Comment: kidney surgery - Anesthesia Hx Anesthesia Reactions: No Hx Malignant Hyperthermia: No - Suicidal Assessment Feels Threatened In Home Enviroment: No Family/Social History - Physician Review Nursing Documentation Reviewed: Yes Family/Social History: No Known Family HX Smoking Status: Never Smoked Hx Alcohol Use: Yes (SPECIAL OCCASIONS) Hx Substance Use: No Hx Substance Use Treatment: No Allergies/Home Meds Allergies/Adverse Reactions: Allergies latex Allergy (Severe, Verified 07/11/18 14:32) ANAPHYLAXIS cashew nut Allergy (Intermediate, Verified 07/11/18 14:32) SWELLING-THROAT naproxen Adverse Reaction (Intermediate, Verified 07/11/18 14:32) SWELLING/WELTS ON LEGS AVOIDS cats Allergy (Intermediate, Uncoded 07/11/18 14:32) SWELLING/EYES Home Medications: Home Meds Medication Instructions Recorded Confirmed RX: Sertraline [Zoloft] 100 mg PO HS 08/20/14 02/05/18 RX: ALPRAZolam [Xanax] 0.25 mg PO PRN PRN 10/25/15 02/05/18 RX: Biotin [Cyto B7] 10 mg PO DAILY 06/26/17 02/05/18 RX: DiphenhydrAMINE [Benadryl] 25 mg PO TID PRN 06/26/17 02/05/18 RX: Folic Acid 1 mg PO DAILY 06/26/17 02/05/18 RX: Mesalamine ER Cap [Pentasa] 500 mg PO BID 06/26/17 02/05/18 Acetaminophen [Tylenol] 325 mg PO PRN PRN 02/01/18 02/05/18 Copper Bisglycinate 15 mg PO DAILY 02/01/18 02/05/18 Denosumab [Prolia] 1 mg SC Q180D 02/01/18 02/05/18 Dexlansoprazole [Dexilant] 60 mg PO QAM 02/01/18 02/05/18 Ferrous Sulfate [Ferosul] 325 mg PO [facility] 02/01/18 02/05/18 Glipizide/Metformin HCl 1 tab PO [facility] 02/01/18 02/05/18 [Glipizide-Metformin 5-500 mg] Insulin Lispro [Humalog (Insulin 100 unit SQ ACTID 02/01/18 02/05/18 Lispro)] Multivit-Min/FA/Lycopen/Lutein 1 each PO DAILY 02/01/18 02/05/18 [Centrum Silver Tablet] Potassium Chloride [K-Dur 20] 20 meq PO BID 02/01/18 02/05/18 Pregabalin [Lyrica] 50 mg PO HS 02/01/18 02/05/18 Prochlorperazine [Compazine] 10 mg PO 02/01/18 02/05/18 RX: Cholecalciferol [Vitamin D 50,000 iu PO FRI 02/01/18 02/05/18 1000 IU] Vitamin A Palmitate [Vitamin A] 10,000 unit PO DAILY 02/01/18 02/05/18 Zinc [Natural Zinc 29 mg-50 mg] 2 tab PO QAM 02/01/18 02/05/18 oxyCODONE/Acetaminophen [Percocet 1 tab PO PRN PRN 02/01/18 02/05/18 5/325 mg Tab] predniSONE [Prednisone] 1 mg PO BID 02/01/18 02/05/18 Review of Systems - Physician Review All systems were reviewed & negative as marked: Yes - Review of Systems Constitutional: Fevers, Other (Chills) Respiratory: absent: SOB Cardiovascular: Edema. absent: Chest Pain Gastrointestinal: Diarrhea. absent: Abdominal Pain, Nausea, Vomiting Genitourinary Female: absent: Dysuria, Frequency, Hematuria Musculoskeletal: Back Pain. absent: Neck Pain Neurological: absent: Headache, Dizziness Physical Exam Vital Signs Reviewed: Yes Temperature: Febrile Blood Pressure: Hypotensive (Normally runs low) Pulse: Tachycardic Respiratory Rate: Normal Appearance: Positive for: Well-Appearing, Non-Toxic, Comfortable Pain Distress: None Mental Status: Positive for: Alert and Oriented X 3 - Systems Exam Head: Present: Atraumatic, Normocephalic Pupils: Present: PERRL Extroacular Muscles: Present: EOMI Conjunctiva: Present: Normal Mouth: Present: Moist Mucous Membranes Neck: Present: Normal Range of Motion Respiratory/Chest: Present: Clear to Auscultation, Good Air Exchange. No: Respiratory Distress, Accessory Muscle Use Cardiovascular: Present: Regular Rate and Rhythm, Normal S1, S2. No: Murmurs Abdomen: No: Tenderness, Distention, Peritoneal Signs Back: Present: Normal Inspection Upper Extremity: Present: Normal Inspection. No: Cyanosis, Edema Lower Extremity: Present: Swelling (Swelling to ankles bilaterally). No: Edema Neurological: Present: GCS=15, CN II-XII Intact, Speech Normal Skin: Present: Dry, Normal Color, Hot (to touch). No: Rashes Psychiatric: Present: Alert, Oriented x 3, Normal Insight, Normal Concentration Medical Decision Making ED Course and Treatment: 07/11/18 05:24 Impression: 72 year old female presents complaining of fever and chills associated with diarrhea, leg swelling, and lower back pain. Plan: -- VBG -- EKG -- Labs -- Tylenol -- Blood Culture, Urine Culture -- Urinalysis -- Reassess and disposition Prior Visits: Notes and results from previous visits were reviewed. Progress Notes: 07/11/18 05:35 EKG shows Sinus tachycardia at 115 BPM with non-specific ST/T segment changes. Interpreted by me 07/11/18 05:50 Code sepsis called. - Lab Interpretations I have reviewed the lab results: Yes - EKG Interpretation Interpreted by ED Physician: Yes Type: 12 lead EKG - Transfer of Care Patient signed out to Dr:: eamon icu eval and dispo - Scribe Statement The provider has reviewed the documentation as recorded by the Scribe Roz Johns Provider Scribe Attestation: All medical record entries made by the Scribe were at my direction and personally dictated by me. I have reviewed the chart and agree that the record accurately reflects my personal performance of the history, physical exam, medical decision making, and the department course for this patient. I have also personally directed, reviewed, and agree with the discharge instructions and disposition. Disposition/Present on Arrival - Present on Arrival Any Indicators Present on Arrival: No History of DVT/PE: No History of Uncontrolled Diabetes: No Urinary Catheter: No History Surgical Site Infection Following: None - Disposition Have Diagnosis and Disposition been Completed?: Yes Diagnosis: Sepsis, UTI (urinary tract infection) Disposition: HOSPITALIZED Disposition Time: 07:00 Patient Problems: Current Active Problems Problem Status Onset Sepsis Acute UTI (urinary tract infection) Chronic Condition: GUARDED
[2018-07-11 05:34] VITALS: BMI 22.3
[2018-07-11] MEDS ORDERED: Cefepime IV 2 gm in NS 2 GM/100 ML BAG IVPB STA (05:57)
[2018-07-11 06:12] LABS: VENOUS BLOOD GAS BASE EXCESS -16.5 mmol/L (0.0-2.0); VENOUS BLOOD GAS PO2 55 mm/Hg (30-55); VENOUS BLOOD PH 7.21 (7.32-7.43)
[2018-07-11 06:18] LABS: INR 1.41; PARTIAL THROMBOPLASTIN TIME 24.2 Seconds (25.1-36.5); PROTHROMBIN TIME 16.3 SECONDS (9.4-12.5)
[2018-07-11] MEDS ORDERED: Vancomycin 1gm in NS 250ml 1 GM/250 ML BAG IVPB STA (06:21)
[2018-07-11 06:42] LABS: ALB/GLOB RATIO 0.9 (1.1-1.8); ALBUMIN 2.6 g/dL (3.0-4.8); CALCIUM 7.5 mg/dL (8.4-10.5)
[2018-07-11] MEDS ORDERED: Magnesium Sulfate 1 gm in D5W 1 GM/100 ML BAG IVPB ONE (06:46)
[2018-07-11 06:56] LABS: PH,URINE 6.5 (4.7-8.0); URINE BILIRUBIN NEGATIVE (NEGATIVE); URINE BLOOD LARGE (NEGATIVE); URINE GLUCOSE (UA) 500 mg/dL (NEGATIVE); URINE LEUKOCYTE ESTERASE MODERATE Leu/uL (NEGATIVE); URINE PROTEIN 30 mg/dL (<30 mg/dL); URINE UROBILINOGEN 0.2 E.U./dL (<1 E.U./dL)
[2018-07-11 06:58] LABS: URINE APPEARANCE CLOUDY (CLEAR); URINE COLOR LIGHT RED (YELLOW)
[2018-07-11 07:01] LABS: EOS % 0.3 % (1.5-5.0); GRAN # 3.25 (1.4-6.5); GRAN % 93.4 % (50.0-68.0); HEMOGLOBIN 11.4 g/dL (12.0-16.0); LYMPH # 0.2 (1.2-3.4); LYMPH % 4.9 % (22.0-35.0); MEAN CORPUSCULAR HEMOGLOBIN 31.3 pg (25.0-35.0); MEAN CORPUSCULAR HGB CONC 33.1 g/dl (31.0-37.0); MEAN PLATELET VOLUME 11.3 fl (7.0-11.0); MONO # 0.1 (0.1-0.6); MONO % 1.4 % (1.0-6.0); RBC 3.64 10^6/uL (3.5-6.1); RED CELL DISTRIBUTION WIDTH 14.5 % (11.5-14.5); WHITE BLOOD COUNT 3.5 10^3/uL (4.5-11.0)
[2018-07-11 07:03] LABS: PLATELET COUNT 42 10^3/uL (120.0-450.0)
[2018-07-11 07:04] LABS: MEAN CELL VOLUME 94.5 fl (80.0-105.0)
[2018-07-11 07:06] LABS: URINE BACTERIA SMALL (NEG); URINE EPITHELIAL CELLS 0 - 2 /hpf (0-5); URINE RBC TNTC /hpf (0-2)
--- NOTE | 2018-07-11 07:34 | ED PDOC ---
Physical Exam Vital Signs Reviewed: Yes Vital Signs Temp Pulse Resp BP Pulse Ox 07/11/18 06:31 107 H 18 96/43 L 100 07/11/18 05:58 122 H 18 85/50 L 100 07/11/18 05:34 101.6 F H 131 H 26 H 98 Blood Pressure: Hypotensive Pulse: Tachycardic Respiratory Rate: Normal Appearance: Positive for: Well-Appearing, Non-Toxic, Comfortable Pain Distress: None Mental Status: Positive for: Alert and Oriented X 3 - Systems Exam Head: Present: Atraumatic, Normocephalic Pupils: Present: PERRL Extroacular Muscles: Present: EOMI Conjunctiva: Present: Normal Neck: Present: Normal Range of Motion Respiratory/Chest: Present: Clear to Auscultation, Good Air Exchange. No: Respiratory Distress, Accessory Muscle Use Cardiovascular: Present: Regular Rate and Rhythm, Normal S1, S2. No: Murmurs Abdomen: No: Tenderness, Distention, Peritoneal Signs Back: Present: Normal Inspection Upper Extremity: Present: Normal Inspection. No: Cyanosis, Edema Lower Extremity: Present: Edema (bilateral lower extremity ) Neurological: Present: GCS=15, CN II-XII Intact, Speech Normal Skin: Present: Warm, Dry, Normal Color. No: Rashes Psychiatric: Present: Alert, Oriented x 3, Normal Insight, Normal Concentration Medical Decision Making ED Course and Treatment: 07/11/18 07:15 Case endorsed to me by Dr. Ahmadi for pending reassessment and final disposition. Patient is a 72 year old female, who presented to the Emergency department earlier today complaining of fever and chills. Patient is currently resting in bed, awake and alert, and in no acute distress. Patient currently denies any new medical complaints. 07/11/18 07:[address] Hoyos, hospitalist marketing content specialist, who is aware and agrees with Emergency department management plan to consult for ICU screen. 07/11/18 07:30 Discussed case with Satellite Installation Technician marketing content specialist, who is aware and agrees to evaluate patient at bedside for ICU admission. 07/11/18 08:00 Patient will be admitted to ICU. - Lab Interpretations Lab Results: 07/11/18 06:45 07/11/18 05:30 Lab Results 07/11/18 06:45: WBC 3.5 L, RBC 3.64, Hgb 11.4 L, Hct 34.4 L, MCV 94.5 D, MCH 31.3, MCHC 33.1, RDW 14.5, Plt Count 42 L*, MPV 11.3 H, Gran % 93.4 H, Lymph % (Auto) 4.9 L, [place] % (Auto) 1.4, Eos % (Auto) 0.3 L, Baso % (Auto) 0.0, Gran # 3.25, Lymph # (Auto) 0.2 L, [place] # (Auto) 0.1, Eos # (Auto) 0.0, Baso # (Auto) 0.00, Neutrophils % (Manual) Pending, Lymphocytes % (Manual) Pending, Monocytes % (Manual) Pending 07/11/18 06:25: Urine Color Light red, Urine Appearance Cloudy, Urine pH 6.5, Ur Specific [place] 1.015, Urine Protein 30 H, Urine Glucose (UA) 500 H, Urine Ketones Negative, Urine Blood Large H, Urine Nitrate Positive H, Urine Bilirubin Negative, Urine Urobilinogen 0.2, Ur Leukocyte Esterase Moderate H, Urine RBC Tntc, Urine WBC 10 - 15, Ur Epithelial Cells 0 - 2, Urine Bacteria Small 07/11/18 05:30: Sodium 141, Chloride 117 H, Potassium 2.6 L* D, Carbon Dioxide 10 L D, Anion Gap 17, BUN 9, Creatinine 1.1, Est GFR ( Amer) 59, Est GFR (Non-Af Amer) 49, Random Glucose 121 H, Calcium 7.5 L, Phosphorus 1.3 L*, Magnesium 1.5 L, Total Bilirubin 0.7, AST 43 H, ALT 25, Alkaline Phosphatase 145 H D, Total Protein 5.5 L, Albumin 2.6 L, Globulin 2.9, Albumin/Globulin Ratio 0.9 L 07/11/18 05:30: pO2 55, VBG pH 7.21 L, VBG pCO2 24.0 L, VBG HCO3 9.6 L, VBG Total CO2 10.3 L, VBG O2 Sat (Calc) 90.2 H, VBG Base Excess -16.5 L, VBG Potassium 3.0 L, Sodium 142.0, Chloride 113.0 H, Glucose 121 H, Lactate 9.8 H*, FiO2 21.0, Venous Blood Potassium 3.0 L 07/11/18 05:30: PT 16.3 H, INR 1.41, APTT 24.2 L - RAD Interpretation Radiology Orders: 07/11/18 05:44 CHEST PORTABLE [RAD] Stat - Medication Orders Current Medication Orders: Vancomycin HCl (Vancomycin 1gm) 1 gm in 250 mls @ 167 mls/hr IVPB STAT STA; Protocol Stop: 07/11/18 07:50 Magnesium Sulfate/Dextrose (Magnesium Sulfate 1 Gm/100 Ml D5w) 1 gm in 100 mls @ 100 mls/hr IVPB ONCE ONE Stop: 07/11/18 07:45 Last Admin: 07/11/18 07:00 Dose: 100 mls/hr eMAR Start Stop Document 07/11/18 07:00 AD (Rec: 07/11/18 07:13 AD [id number]) Intravenous Solution Start Date 07/11/18 Start Time 07:00 Potassium Chloride (Potassium Chloride 20 Meq/100 Ml) 20 meq in 100 mls @ 50 mls/hr IVPB Q2H AGNES Stop: 07/11/18 10:59 Last Admin: 07/11/18 07:01 Dose: 50 mls/hr eMAR Start Stop Document 07/11/18 07:01 AD (Rec: 07/11/18 07:01 AD [id number]) Intravenous Solution Start Date 07/11/18 Start Time 07:01 Discontinued Medications Acetaminophen (Tylenol 325mg Tab) 650 mg PO STAT STA Stop: 07/11/18 05:46 Last Admin: 07/11/18 05:55 Dose: 650 mg Lactated Ringer's 1,800 ml/ IV (SUPPLIES) 1,800 mls @ 3,538.02 mls/hr IV ONCE ONE Stop: 07/11/18 06:27 Last Admin: 07/11/18 06:13 Dose: 3,538.02 mls/hr eMAR Start Stop Document 07/11/18 06:13 AD (Rec: 07/11/18 06:15 AD [id number]) Intravenous Solution Start Date 07/11/18 Start Time 06:15 Cefepime HCl (Maxipime 2gm) 2 gm in 100 mls @ 100 mls/hr IVPB STAT STA; Protocol Stop: 07/11/18 06:56 Last Admin: 07/11/18 06:16 Dose: 100 mls/hr eMAR Start Stop Document 07/11/18 06:16 AD (Rec: 07/11/18 06:17 AD [id number]) Intravenous Solution Start Date 07/11/18 Start Time 06:17 - Scribe Statement The provider has reviewed the documentation as recorded by the Scribe Aaliyah Cheatham. All medical record entries made by the Scribe were at my direction and personally dictated by me. I have reviewed the chart and agree that the record accurately reflects my personal performance of the history, physical exam, medical decision making, and the department course for this patient. I have also personally directed, reviewed, and agree with the discharge instructions and disposition. Disposition/Present on Arrival - Present on Arrival Any Indicators Present on Arrival: No History of DVT/PE: No History of Uncontrolled Diabetes: No Urinary Catheter: No History of Decub. Ulcer: No History Surgical Site Infection Following: None - Disposition Have Diagnosis and Disposition been Completed?: Yes Diagnosis: Sepsis, UTI (urinary tract infection) Disposition: HOSPITALIZED Disposition Time: 07:30 Condition: GUARDED
[2018-07-11 08:11] LABS: LYMPHOCYTE 5 % (22.0-35.0); MONOCYTE 1 % (1.0-6.0); NEUTROPHIL 84 % (50.0-70.0)
[2018-07-11 08:12] LABS: BAND 10 % (0-2); PLATELET ESTIMATE LOW (NORMAL)
--- NOTE | 2018-07-11 08:56 | RAD ---
Date of service: 07/11/2018 HISTORY: Sepsis Patient COMPARISON: 02/13/2018 FINDINGS: LUNGS: No active pulmonary disease. PLEURA: No significant pleural effusion identified, no pneumothorax apparent. CARDIOVASCULAR: Mild aortic calcification Normal cardiac size. No pulmonary vascular congestion. OSSEOUS STRUCTURES: No significant abnormalities. VISUALIZED UPPER ABDOMEN: Normal. OTHER FINDINGS: None. IMPRESSION: No active disease.
[2018-07-11 09:15] LABS: VENOUS BLOOD GAS BASE EXCESS -17.1 mmol/L (0.0-2.0); VENOUS BLOOD GAS PO2 85 mm/Hg (30-55)
[2018-07-11] MEDS ORDERED: Lactated Ringer's 1,000 ML IV SCH (09:15)
[2018-07-11] MEDS ORDERED: Sodium Chloride 0.9% 1,000 ML IV SCH (09:15)
[2018-07-11 09:21] LABS: VENOUS BLOOD PH 7.18 (7.32-7.43)
[2018-07-11] MEDS ORDERED: Midazolam 2 MG/2 ML VIAL IVP ONE (09:22)
--- NOTE | 2018-07-11 10:08 | CARD ---
APPROVED REPORT Date of service: 07/11/2018 EKG Measurement Heart [id number] MI 160P [id number] <Conclusion> Sinus tachycardia with premature atrial complexes with aberrant conduction Left axis deviation Anteroseptal infarct, age undetermined Abnormal ECG
[2018-07-11] MEDS: NOREPINEPHRINE BIT/0.9 % NACL 4 MG/250 ML BAG IV PRN ×3 (11:00→22:05)
--- NOTE | 2018-07-11 11:19 | PCM.PROC ---
<Beau Castellanos - Last Filed: 07/11/18 10:56> Procedures Attestation:: I certify that I have explained the specified Operation(s) or Procedure(s), risks, benefits and reasonable alternatives to the Patient and/or other person responsible. The opportunity was given to ask questions and all questions answered - Central Line Placement Right Internal Jugular Triple Lumen Catheter Aseptic technique was employed throughout the procedure: Hand Hygiene done prior to procedure, Full sterile barriers (mask, hair cover, sterile gown, sterile gloves), Full body sterile drape, Chloraprep Antiseptic: 30 second prep for IJ or SC sites Pt. Placed on Pulse Ox Monitor: Yes Central Line Prep: Povidone-Iodine 1% Local Anesthesia Used: Lidocaine 1% Amount of Anesthesia Used (mls): 8 Ultrasound Used for Placement: Yes Central Line Lumen Inserted: triple Central Line Length: 20 cm Post Procedure: Sutured in Place, Good Blood Return, All Ports Aspirated, Flushed, Capped, Sterile Dressing Applied Secured by: Suture Post procedure dressing: Clear vapor permeable, Chlorhexidine disc (Biopatch) Post Procedure X-Ray: Yes Patient Tolerated Procedure: Well Immediate Complications: None <Arleth Chaparro - Last Filed: 07/11/18 17:53> Addendum Addendum: 07/11/18 17:52 MICU Attending: Central Venous Catheter (CVC, Central Line) Placement 07/11/2018 Indication: Hemodynamic monitoring/Intravenous access A time-out was completed verifying correct patient, procedure, site, positioning. The patient was placed in a dependent position appropriate for central line placement based on the vein to be cannulated. The patients right neck was prepped and draped in sterile fashion. 1% Lidocaine was used to anesthetize the surrounding skin area. A triple lumen Cordis catheter was introduced into the the internal jugular using the Seldinger technique and under ultrasound guidance. The catheter was threaded smoothly over the guide wire and appropriate blood return was obtained. Each lumen of the catheter was evacuated of air and flushed with sterile saline. The catheter was then sutured in place to the skin and a sterile dressing applied. Perfusion to the extremity distal to the point of catheter insertion was checked and found to be adequate. I was present for the entire procedure. Estimated Blood Loss: minimal The patient tolerated the procedure well CXR shows line in place Bilabhay Chaparro MD
[2018-07-11] MEDS ORDERED: NOREPINEPHRINE BIT/0.9 % NACL 4 MG/250 ML BAG IV ONE (11:45)
[2018-07-11] MEDS: Meropenem IV 1 gm in NS 1 GM/50 ML BAG IVPB SCH ×2 (12:28→22:08)
--- NOTE | 2018-07-11 12:42 | RAD ---
Date of service: 07/11/2018 HISTORY: N COMPARISON: Earlier same day FINDINGS: LUNGS: No active pulmonary disease. PLEURA: No significant pleural effusion identified, no pneumothorax apparent. CARDIOVASCULAR: Aortic calcification Normal cardiac size. No pulmonary vascular congestion. OSSEOUS STRUCTURES: No significant abnormalities. VISUALIZED UPPER ABDOMEN: Normal. OTHER FINDINGS: None. IMPRESSION: There is a right internal jugular line that terminates in the right atrium. There is no pneumothorax
[2018-07-11] MEDS ORDERED: Vasopressin 20 UNITS in Dextrose 5% In Water 100 ML IV SCH (12:45)
--- NOTE | 2018-07-11 14:16 | CP.PCM.CON ---
<Beau Castellanos - Last Filed: 07/11/18 17:34> History of Present Illness - History of Present Illness History of Present Illness: CRITICAL CARE PROGRESS NOTE FOR DR. ANTHONY aCstellanos PGY-1 72 y/o F with PMHx of multiple nephrolithiasis, recurrent UTI/urosepsis, u reterovesicular reflux, DM2, Crohn's disease, h/o subdural hematoma, pancytopenia brought in by EMS to [facility] with complaints of fever/chills/diarrhea x 2days. Pt also c/o low back pain but states it's chronic. Per ED notes, she was A&Ox3 when she came in, with regular unlabored breathing with sinus tachycardia. Upon arrival to ICU, pt is AxO x 2 and complaining of chills and thirst. She is not responding to ROS questions. Per son present at bedside, pt was to undergo a "robotic procedure" for t reatment of recurrent nephrolithiasis. He doesn't recall details of surgery, but reports that she had not underwent the surgery. PMHx: recurrent nephrolithiasis, UTIs, b/l hydronephrosis, crohns disease, h/o subdural hematoma PSH: b/l ureteral stents, cholecystectomy, appendectomy All: latex, cashew, nut, naproxen, cats FMH: Mother: at 65 due to CO. Father: at 65 due to coma passed from unknown reason PMD: Dr. Oleg Browne Urologist: Dr. Horvath Review of Systems - Review of Systems Review of Systems: per HPI Past Patient History - Infectious Disease Hx of Infectious Diseases: None - Tetanus Immunizations Tetanus Immunization: Unknown - Past Social History Smoking Status: Never Smoked - CARDIAC Hx Pacemaker: No - PULMONARY Hx Respiratory Disorders: Yes Hx Asthma: Yes - NEUROLOGICAL Hx Paralysis: No - HEENT Hx HEENT Problems: No Hx Cataracts: Yes - RENAL Hx Chronic Kidney Disease: Yes Hx Kidney Stones: Yes Other/Comment: RENAL CALCULI - ENDOCRINE/METABOLIC Hx Diabetes Mellitus Type 2: Yes (NIDD) - HEMATOLOGICAL/ONCOLOGICAL Hx Blood Transfusions: Yes (2014) Hx Blood Transfusion Reaction: No - INTEGUMENTARY Hx Dermatological Problems: No - MUSCULOSKELETAL/RHEUMATOLOGICAL Hx Musculoskeletal Disorders: Yes (RIB INJURY) - GASTROINTESTINAL Hx Gastrointestinal Disorders: Yes Hx Crohn's Disease: Yes Other/Comment: CHOLELITHAISIS. GASTRIC BYPASS - GENITOURINARY/GYNECOLOGICAL Hx Genitourinary Disorders: Yes (PYELONEPHRITIS,PSEUDOMONAS UTI,RENAL CA) Other/Comment: kidney stone - PSYCHIATRIC Hx Emotional Abuse: No Hx Physical Abuse: No Hx Substance Use: No - SURGICAL HISTORY Hx Cholecystectomy: Yes Hx Gastric Bypass Surgery: Yes Other/Comment: kidney surgery - ANESTHESIA Hx Anesthesia Reactions: No Hx Malignant Hyperthermia: No Meds Allergies/Adverse Reactions: Allergies Allergy/AdvReac Type Severity Reaction Status Date / Time latex Allergy Severe ANAPHYLAXIS Verified 07/11/18 14:32 cashew nut Allergy Intermediate SWELLING-TH Verified 07/11/18 14:32 ROAT naproxen AdvReac Intermediate SWELLING/WELTS Verified 07/11/18 14:32 ON LEGS cats Allergy Intermediate SWELLING/EY Uncoded 07/11/18 14:32 ES - Medications Medications: Current Medications Sodium Chloride (Sodium Chloride 0.9%) 1,000 mls @ 125 mls/hr IV .Q8H AGNES Lactated Ringer's (Lactated Ringer's) 1,000 mls @ 0 mls/hr IV .Q0M AGNES Meropenem (Merrem Iv 1 Gm Premix) 1 gm in 50 mls @ 100 mls/hr IVPB Q12 AGNES; Protocol Last Admin: 07/11/18 12:28 Dose: 100 mls/hr Acetaminophen (Ofirmev) 1,000 mg in 100 mls @ 400 mls/hr IVPB Q6H PRN PRN Reason: Temperature Stop: 07/13/18 11:05 NOREPINEPHRINE BIT/0.9 % NACL (Levophed 4 Mg/ 250 Ml Ns Premixed) 4 mg in 250 mls @ 15 mls/hr IV .[id number] PRN; Protocol PRN Reason: TITRATE PER MD ORDER Last Admin: 07/11/18 11:00 Dose: 4 mcg/min, 15 mls/hr Vasopressin 20 units/ Sodium (Chloride) 101 mls @ 9.09 mls/hr IV .[id number] AGNES; Protocol Last Admin: 07/11/18 13:51 Dose: 9.09 mls/hr Physical Exam - Constitutional Appears: No Acute Distress, Chronically Ill - Head Exam Head Exam: ATRAUMATIC, NORMAL INSPECTION - Eye Exam Eye Exam: EOMI, Normal appearance - ENT Exam ENT Exam: Mucous Membranes Dry, Normal Exam - Neck Exam Neck exam: Positive for: Normal Inspection - Respiratory Exam Respiratory Exam: Clear to Auscultation Bilateral, NORMAL BREATHING PATTERN - Cardiovascular Exam Cardiovascular Exam: Tachycardia, REGULAR RHYTHM - GI/Abdominal Exam GI & Abdominal Exam: Normal Bowel Sounds, Soft. absent: Distended - Extremities Exam Extremities exam: Positive for: normal inspection. Negative for: calf tenderness - Back Exam Back exam: NORMAL INSPECTION - Neurological Exam Neurological exam: Alert Additional comments: oriented to person and place - Psychiatric Exam Psychiatric exam: Agitated - Skin Skin Exam: Dry, Intact, Warm Results - Vital Signs Recent Vital Signs: Last Vital Signs Temp 100.7 F H 07/11/18 08:51 Pulse 103 H 07/11/18 08:51 Resp 24 07/11/18 08:51 BP 86/42 L 07/11/18 13:51 Pulse Ox 100 07/11/18 08:51 - Labs Result Diagrams: 07/11/18 06:45 07/11/18 05:30 Labs: Laboratory Results - last 24 hr 07/11/18 07/11/18 07/11/18 05:30 05:30 05:30 WBC RBC Hgb Hct MCV MCH MCHC RDW Plt Count MPV Gran % Lymph % (Auto) Wallace % (Auto) Eos % (Auto) Baso % (Auto) Gran # Lymph # (Auto) Wallace # (Auto) Eos # (Auto) Baso # (Auto) Neutrophils % (Manual) Band Neutrophils % Lymphocytes % (Manual) Monocytes % (Manual) Platelet Evaluation PT 16.3 H INR 1.41 APTT 24.2 L pO2 55 VBG pH 7.21 L VBG pCO2 24.0 L VBG HCO3 9.6 L VBG Total CO2 10.3 L VBG O2 Sat (Calc) 90.2 H VBG Base Excess -16.5 L VBG Potassium 3.0 L Sodium 142.0 141 Chloride 113.0 H 117 H Glucose 121 H Lactate 9.8 H* FiO2 21.0 Potassium 2.6 L* D Carbon Dioxide 10 L D Anion Gap 17 BUN 9 Creatinine 1.1 Est GFR ( Amer) 59 Est GFR (Non-Af Amer) 49 POC Glucose (mg/dL) Random Glucose 121 H Calcium 7.5 L Phosphorus 1.3 L* Magnesium 1.5 L Total Bilirubin 0.7 AST 43 H ALT 25 Alkaline Phosphatase 145 H D Total Protein 5.5 L Albumin 2.6 L Globulin 2.9 Albumin/Globulin Ratio 0.9 L Venous Blood Potassium 3.0 L Urine Color Urine Appearance Urine pH Ur Specific [place] Urine Protein Urine Glucose (UA) Urine Ketones Urine Blood Urine Nitrate Urine Bilirubin Urine Urobilinogen Ur Leukocyte Esterase Urine RBC Urine WBC Ur Epithelial Cells Urine Bacteria 07/11/18 07/11/18 07/11/18 06:25 06:45 08:45 WBC 3.5 L RBC 3.64 Hgb 11.4 L Hct 34.4 L MCV 94.5 D MCH 31.3 MCHC 33.1 RDW 14.5 Plt Count 42 L* MPV 11.3 H Gran % 93.4 H Lymph % (Auto) 4.9 L Wallace % (Auto) 1.4 Eos % (Auto) 0.3 L Baso % (Auto) 0.0 Gran # 3.25 Lymph # (Auto) 0.2 L Wallace # (Auto) 0.1 Eos # (Auto) 0.0 Baso # (Auto) 0.00 Neutrophils % (Manual) 84 H Band Neutrophils % 10 H Lymphocytes % (Manual) 5 L Monocytes % (Manual) 1 Platelet Evaluation Low PT INR APTT pO2 85 H VBG pH 7.18 L* VBG pCO2 26.0 L VBG HCO3 9.7 L VBG Total CO2 10.5 L VBG O2 Sat (Calc) 97.2 H VBG Base Excess -17.1 L VBG Potassium 3.2 L Sodium 141.0 Chloride 113.0 H Glucose 82 Lactate 9.9 H* FiO2 21.0 Potassium Carbon Dioxide Anion Gap BUN Creatinine Est GFR ( Amer) Est GFR (Non-Af Amer) POC Glucose (mg/dL) Random Glucose Calcium Phosphorus Magnesium Total Bilirubin AST ALT Alkaline Phosphatase Total Protein Albumin Globulin Albumin/Globulin Ratio Venous Blood Potassium 3.2 L Urine Color Light red Urine Appearance Cloudy Urine pH 6.5 Ur Specific [place] 1.015 Urine Protein 30 H Urine Glucose (UA) 500 H Urine Ketones Negative Urine Blood Large H Urine Nitrate Positive H Urine Bilirubin Negative Urine Urobilinogen 0.2 Ur Leukocyte Esterase Moderate H Urine RBC Tntc Urine WBC 10 - 15 Ur Epithelial Cells 0 - 2 Urine Bacteria Small 07/11/18 09:24 WBC RBC Hgb Hct MCV MCH MCHC RDW Plt Count MPV Gran % Lymph % (Auto) Wallace % (Auto) Eos % (Auto) Baso % (Auto) Gran # Lymph # (Auto) Wallace # (Auto) Eos # (Auto) Baso # (Auto) Neutrophils % (Manual) Band Neutrophils % Lymphocytes % (Manual) Monocytes % (Manual) Platelet Evaluation PT INR APTT pO2 VBG pH VBG pCO2 VBG HCO3 VBG Total CO2 VBG O2 Sat (Calc) VBG Base Excess VBG Potassium Sodium Chloride Glucose Lactate FiO2 Potassium Carbon Dioxide Anion Gap BUN Creatinine Est GFR ( Amer) Est GFR (Non-Af Amer) POC Glucose (mg/dL) 72 Random Glucose Calcium Phosphorus Magnesium Total Bilirubin AST ALT Alkaline Phosphatase Total Protein Albumin Globulin Albumin/Globulin Ratio Venous Blood Potassium Urine Color Urine Appearance Urine pH Ur Specific [place] Urine Protein Urine Glucose (UA) Urine Ketones Urine Blood Urine Nitrate Urine Bilirubin Urine Urobilinogen Ur Leukocyte Esterase Urine RBC Urine WBC Ur Epithelial Cells Urine Bacteria Assessment & Plan - Assessment and Plan (Free Text) Assessment: 72 y/o F admitted to ICU for septic shock, likely secondary to urosepsis in the setting of recurrent nephrolithiasis and ureterovesicular reflux. Plan: Neuro: AxO x 2 [id number] Confused/Disoriented Likely secondary to toxic metabolic encephalopathy No FND Reorient frequently Cardiovascular: currently hypotensive @ 80s/30s Resuscitated with 1800 mL LR, and 500cc LR bolus. BP non-responsive to fluid resuscitation R IJ central line in place on 20mcg/min norepinephrine and 0.03 vasopressin Maintain MAP >60 HR in 100s Respiratory: Saturating well on 2L RA Lungs CTA b/l. No active pulmonary disease on Chest xray VB.18/ Lactate: 9.9 treat underlying urosepsis Maintain SaO2 >90% Pulmonary toilet GI: NPO abdomen soft/nondistended protonix IVP for GI PPx /Renal: Hx of recurrent UTI Hx of recurrent nephrolithiasis ureterovesicular reflux Zendejas catheter Urosepsis U/A + for UTI Consult ID: meropenem per ID recs f/u urine cultures Consult urology: Dr. Win Consult nephrology: Dr. Jernigan Maintain euvolemia replete electrolytes prn Monitor I/Os ID: Febrile @100.7 No leukocytosis Septic shock 2/2 urosepsis Hx of recurrent UTI/nephrolithiasis Lactate elevated Currently treated with meropenem, fluid resuscitation follow-up blood/urine cultures/rapid flu Consult ID. f/u recs Endocrine: Maintain euglycemia <180 Heme: H/H stable history of thrombocytopenia DVT/GI Ppx: Lovenox/Protonix Case seen, examined and discussed with attending physician, Dr. Chaparro <Arleth Chaparro - Last Filed: 07/11/18 17:51> Meds - Medications Medications: Current Medications Enoxaparin Sodium (Lovenox) 40 mg SC DAILY AGNES; Protocol Last Admin: 07/11/18 17:17 Dose: 40 mg Meropenem (Merrem Iv 1 Gm Premix) 1 gm in 50 mls @ 100 mls/hr IVPB Q12 AGNES; Protocol Last Admin: 07/11/18 12:28 Dose: 100 mls/hr Acetaminophen (Ofirmev) 1,000 mg in 100 mls @ 400 mls/hr IVPB Q6H PRN PRN Reason: Temperature Stop: 07/13/18 11:05 NOREPINEPHRINE BIT/0.9 % NACL (Levophed 4 Mg/ 250 Ml Ns Premixed) 4 mg in 250 mls @ 15 mls/hr IV .[id number] PRN; Protocol PRN Reason: TITRATE PER MD ORDER Last Admin: 07/11/18 11:00 Dose: 4 mcg/min, 15 mls/hr Vasopressin 20 units/ Sodium (Chloride) 101 mls @ 9.09 mls/hr IV .Q11H7M AGNES; Protocol Last Admin: 07/11/18 13:51 Dose: 9.09 mls/hr Lactated Ringer's (Lactated Ringer's) 500 mls @ 0 mls/hr IV .Q0M AGNES Potassium Phosphate 15 mmole/ (Dextrose) 255 mls @ 42.5 mls/hr IVPB ONCE ONE Stop: 07/11/18 21:28 Last Admin: 07/11/18 17:14 Dose: 42.5 mls/hr Potassium Chloride (Potassium Chloride 20 Meq/100 Ml) 20 meq in 100 mls @ 50 mls/hr IVPB Q2H AGNES Stop: 07/11/18 20:59 Pantoprazole Sodium (Protonix Inj) 40 mg IVP DAILY AGNES Last Admin: 07/11/18 17:17 Dose: 40 mg Results - Vital Signs Recent Vital Signs: Last Vital Signs Temp 100.7 F H 07/11/18 08:51 Pulse 100 H 07/11/18 17:30 Resp 27 H 07/11/18 17:30 BP 95/33 L 07/11/18 17:30 Pulse Ox 99 07/11/18 17:30 - Labs Result Diagrams: 07/11/18 06:45 07/11/18 16:33 Labs: Laboratory Results - last 24 hr 07/11/18 07/11/18 07/11/18 05:30 05:30 05:30 WBC RBC Hgb Hct MCV MCH MCHC RDW Plt Count MPV Gran % Lymph % (Auto) Wallace % (Auto) Eos % (Auto) Baso % (Auto) Gran # Lymph # (Auto) Wallace # (Auto) Eos # (Auto) Baso # (Auto) Neutrophils % (Manual) Band Neutrophils % Lymphocytes % (Manual) Monocytes % (Manual) Platelet Evaluation PT 16.3 H INR 1.41 APTT 24.2 L pO2 55 VBG pH 7.21 L VBG pCO2 24.0 L VBG HCO3 9.6 L VBG Total CO2 10.3 L VBG O2 Sat (Calc) 90.2 H VBG Base Excess -16.5 L VBG Potassium 3.0 L Sodium 142.0 141 Chloride 113.0 H 117 H Glucose 121 H Lactate 9.8 H* FiO2 21.0 Potassium 2.6 L* D Carbon Dioxide 10 L D Anion Gap 17 BUN 9 Creatinine 1.1 Est GFR ( Amer) 59 Est GFR (Non-Af Amer) 49 POC Glucose (mg/dL) Random Glucose 121 H Calcium 7.5 L Phosphorus 1.3 L* Magnesium 1.5 L Total Bilirubin 0.7 AST 43 H ALT 25 Alkaline Phosphatase 145 H D Total Protein 5.5 L Albumin 2.6 L Globulin 2.9 Albumin/Globulin Ratio 0.9 L Venous Blood Potassium 3.0 L Urine Color Urine Appearance Urine pH Ur Specific [place] Urine Protein Urine Glucose (UA) Urine Ketones Urine Blood Urine Nitrate Urine Bilirubin Urine Urobilinogen Ur Leukocyte Esterase Urine RBC Urine WBC Ur Epithelial Cells Urine Bacteria 07/11/18 07/11/18 07/11/18 06:25 06:45 08:45 WBC 3.5 L RBC 3.64 Hgb 11.4 L Hct 34.4 L MCV 94.5 D MCH 31.3 MCHC 33.1 RDW 14.5 Plt Count 42 L* MPV 11.3 H Gran % 93.4 H Lymph % (Auto) 4.9 L Wallace % (Auto) 1.4 Eos % (Auto) 0.3 L Baso % (Auto) 0.0 Gran # 3.25 Lymph # (Auto) 0.2 L Wallace # (Auto) 0.1 Eos # (Auto) 0.0 Baso # (Auto) 0.00 Neutrophils % (Manual) 84 H Band Neutrophils % 10 H Lymphocytes % (Manual) 5 L Monocytes % (Manual) 1 Platelet Evaluation Low PT INR APTT pO2 85 H VBG pH 7.18 L* VBG pCO2 26.0 L VBG HCO3 9.7 L VBG Total CO2 10.5 L VBG O2 Sat (Calc) 97.2 H VBG Base Excess -17.1 L VBG Potassium 3.2 L Sodium 141.0 Chloride 113.0 H Glucose 82 Lactate 9.9 H* FiO2 21.0 Potassium Carbon Dioxide Anion Gap BUN Creatinine Est GFR ( Amer) Est GFR (Non-Af Amer) POC Glucose (mg/dL) Random Glucose Calcium Phosphorus Magnesium Total Bilirubin AST ALT Alkaline Phosphatase Total Protein Albumin Globulin Albumin/Globulin Ratio Venous Blood Potassium 3.2 L Urine Color Light red Urine Appearance Cloudy Urine pH 6.5 Ur Specific [place] 1.015 Urine Protein 30 H Urine Glucose (UA) 500 H Urine Ketones Negative Urine Blood Large H Urine Nitrate Positive H Urine Bilirubin Negative Urine Urobilinogen 0.2 Ur Leukocyte Esterase Moderate H Urine RBC Tntc Urine WBC 10 - 15 Ur Epithelial Cells 0 - 2 Urine Bacteria Small 07/11/18 07/11/18 07/11/18 09:24 11:14 16:19 WBC RBC Hgb Hct MCV MCH MCHC RDW Plt Count MPV Gran % Lymph % (Auto) Wallace % (Auto) Eos % (Auto) Baso % (Auto) Gran # Lymph # (Auto) Wallace # (Auto) Eos # (Auto) Baso # (Auto) Neutrophils % (Manual) Band Neutrophils % Lymphocytes % (Manual) Monocytes % (Manual) Platelet Evaluation PT INR APTT pO2 VBG pH VBG pCO2 VBG HCO3 VBG Total CO2 VBG O2 Sat (Calc) VBG Base Excess VBG Potassium Sodium Chloride Glucose Lactate FiO2 Potassium Carbon Dioxide Anion Gap BUN Creatinine Est GFR ( Amer) Est GFR (Non-Af Amer) POC Glucose (mg/dL) 72 78 58 L Random Glucose Calcium Phosphorus Magnesium Total Bilirubin AST ALT Alkaline Phosphatase Total Protein Albumin Globulin Albumin/Globulin Ratio Venous Blood Potassium Urine Color Urine Appearance Urine pH Ur Specific [place] Urine Protein Urine Glucose (UA) Urine Ketones Urine Blood Urine Nitrate Urine Bilirubin Urine Urobilinogen Ur Leukocyte Esterase Urine RBC Urine WBC Ur Epithelial Cells Urine Bacteria 07/11/18 07/11/18 07/11/18 16:33 16:33 17:19 WBC RBC Hgb Hct MCV MCH MCHC RDW Plt Count MPV Gran % Lymph % (Auto) Wallace % (Auto) Eos % (Auto) Baso % (Auto) Gran # Lymph # (Auto) Wallace # (Auto) Eos # (Auto) Baso # (Auto) Neutrophils % (Manual) Band Neutrophils % Lymphocytes % (Manual) Monocytes % (Manual) Platelet Evaluation PT INR APTT pO2 190 H VBG pH 7.22 L VBG pCO2 21.0 L VBG HCO3 8.6 L VBG Total CO2 9.2 L VBG O2 Sat (Calc) 99.6 H VBG Base Excess -17.1 L VBG Potassium 3.1 L Sodium 141.0 140 Chloride 114.0 H 118 H Glucose 55 L Lactate 8.7 H* FiO2 21.0 Potassium 3.2 L Carbon Dioxide 9 L Anion Gap 17 BUN 10 Creatinine 1.2 Est GFR ( Amer) 54 Est GFR (Non-Af Amer) 44 POC Glucose (mg/dL) 112 H Random Glucose 54 L Calcium 7.0 L Phosphorus 2.6 Magnesium 1.6 L Total Bilirubin 0.9 AST 37 H ALT 33 Alkaline Phosphatase 102 Total Protein 4.5 L Albumin 2.0 L Globulin 2.5 Albumin/Globulin Ratio 0.8 L Venous Blood Potassium 3.1 L Urine Color Urine Appearance Urine pH Ur Specific [place] Urine Protein Urine Glucose (UA) Urine Ketones Urine Blood Urine Nitrate Urine Bilirubin Urine Urobilinogen Ur Leukocyte Esterase Urine RBC Urine WBC Ur Epithelial Cells Urine Bacteria Addendum Addendum: 07/11/18 17:50 ICU ATTENDING : Patent seen and examined with housestaff. Agree with progress note with following additions/exceptions: 72F with hx of recurrent nephrolithiasis, recurrent UTI/urosepsis, ureterovesicular reflux, DM2, Crohn's disease, h/o subdural hematoma, pancytopenia admitted to the MICU with septic shock likely urosepsis IVF 30cc/kg given(about 1800cc) TLC placed in MICU Levophed with vasopressin to augment the levo at a fixed rate of 0.03 broad abx merrem and vanc monitor urineoutput repeat shock panel and trend lac until it declines if ph < 7.15 start bicarb drip f/u renal US to evaluate for obstructions unclear if she still has stents in place Rest of care as above Arleth Chaparro MD Pulmonary, Critical Care and Sleep Medicine Critical Care TIme: 41 mins
[2018-07-11] MEDS ORDERED: Lactated Ringer's 500 ML IV SCH (14:26)
[2018-07-11] MEDS ORDERED: Potassium Phosphate 15 MMOLE in Dextrose 5% In Water 250 ML IVPB ONE (15:29)
--- NOTE | 2018-07-11 15:37 | CP.PCM.CON ---
History of Present Illness - History of Present Illness History of Present Illness: Nephrology Consultation Note: Assessment: critical HAGMA with lactic acidosis Hypokalemia sepsis with shock diabetes Mellitus ( years), b/l kidney stones and recurrent UTIs, gastric bypass surgery, UV reflux, crohns disease, splenomegaly, pancytopenia hypophosphatemia, hypokalemia Plan No acute need for renal replacement therapy at this time. Maintain hemodynamics stable. Avoid hypotension. Patient not on ACEI/ARB due to shock Monitor Input/Output, daily weights and renal function with basic metabolic panel once volume replaced adequately and still remains acidotic with pH<7.2 then consider bicarb drip supplement lytes renal sono check urine pro/cr and alb/cr legs compressive stockings Dose meds/antibiotics for reduced GFR. Avoid fleets enema/magnesium based laxatives. Avoid nephrotoxins/NSAIDs/ iodinated contrast (unless needed emergently) Glycemic control Further work up/management as per primary team Thanks for allowing me to participate in care of your patient. Will follow patient with you. Please call if any Qs. had d/w team Dr Chad Jernigan Office: [phone] Chief Complaint; fever/chills Reason for consult: acidosis and hypokalemia HPI: Pt is a 72 F with hx of diabetes Mellitus ( years), b/l kidney stones and recurrent UTIs, gastric bypass surgery, UV refluxx, crohn's disease, splenomegaly, pancytopenia ? HSP presented with complaints of fever and chhills, admitted to ICU with sepsis with shock requiring pressors and lactic acidosis. no knwon OTC/herbal meds or NSAIDs No recent iodinated contrast exposure. Noted obvious episodes of low BP. per , pt got sick for last couple of days ROS: pt unable to provide any hx Physical Examination: General Appearance: in no acute respiratory distress, ill appearing Vitals reviewed and noted as below Head; Atraumatic, normocephalic ENT: no ulcers no thrush. Tongue is midline. Oropharynx: no rash or ulcers. EYES: Pupils are equal, round and reactive to light accommodation. Eye muscles and extraocular movement intact. Sclera is anicteric. Neck; supple no lymphadenopathy, no thyromegaly or bruit Lungs: Normal respiratory rate/effort. Breath sounds bilateral equal and clear Heart: Increased rate. s1s2 normal. No rub or gallop. Extremities: 2+ edema. No varicose veins Neurological: Patient is mostly sleeping/non communicative and not following commands Skin: Warm and dry. Normal turgor. No rash. Palpitation: Normal elasticity for age Abdomen: Abdomen is soft. Bowel sounds +. There is no abdominal tenderness, no guarding/rigidity no organomegaly Psych: unable MSK: no joint tenderness or swelling. Digits and nails normal, no deformity : kidney or bladder not palpable Labs/imaging reviewed. Past medical history, past surgical history, family history, social history, allergy reviewed and noted as below Family hx: no hx of CKD. Rest non-contributory Past Patient History - Infectious Disease Hx of Infectious Diseases: None - Tetanus Immunizations Tetanus Immunization: Unknown - Past Social History Smoking Status: Never Smoked - CARDIAC Hx Pacemaker: No - PULMONARY Hx Respiratory Disorders: Yes Hx Asthma: Yes - NEUROLOGICAL Hx Paralysis: No - HEENT Hx HEENT Problems: No Hx Cataracts: Yes - RENAL Hx Chronic Kidney Disease: Yes Hx Kidney Stones: Yes Other/Comment: RENAL CALCULI - ENDOCRINE/METABOLIC Hx Diabetes Mellitus Type 2: Yes (NIDD) - HEMATOLOGICAL/ONCOLOGICAL Hx Blood Transfusions: Yes (2014) Hx Blood Transfusion Reaction: No - INTEGUMENTARY Hx Dermatological Problems: No - MUSCULOSKELETAL/RHEUMATOLOGICAL Hx Musculoskeletal Disorders: Yes (RIB INJURY) - GASTROINTESTINAL Hx Gastrointestinal Disorders: Yes Hx Crohn's Disease: Yes Other/Comment: CHOLELITHAISIS. GASTRIC BYPASS - GENITOURINARY/GYNECOLOGICAL Hx Genitourinary Disorders: Yes (PYELONEPHRITIS,PSEUDOMONAS UTI,RENAL CA) Other/Comment: kidney stone - PSYCHIATRIC Hx Emotional Abuse: No Hx Physical Abuse: No Hx Substance Use: No - SURGICAL HISTORY Hx Cholecystectomy: Yes Hx Gastric Bypass Surgery: Yes Other/Comment: kidney surgery - ANESTHESIA Hx Anesthesia Reactions: No Hx Malignant Hyperthermia: No Meds Allergies/Adverse Reactions: Allergies Allergy/AdvReac Type Severity Reaction Status Date / Time latex Allergy Severe ANAPHYLAXIS Verified 07/11/18 14:32 cashew nut Allergy Intermediate SWELLING-TH Verified 07/11/18 14:32 ROAT naproxen AdvReac Intermediate SWELLING/WELTS Verified 07/11/18 14:32 ON LEGS cats Allergy Intermediate SWELLING/EY Uncoded 07/11/18 14:32 ES - Medications Medications: Current Medications Sodium Chloride (Sodium Chloride 0.9%) 1,000 mls @ 125 mls/hr IV .Q8H AGNES Meropenem (Merrem Iv 1 Gm Premix) 1 gm in 50 mls @ 100 mls/hr IVPB Q12 AGNES; Protocol Last Admin: 07/11/18 12:28 Dose: 100 mls/hr Acetaminophen (Ofirmev) 1,000 mg in 100 mls @ 400 mls/hr IVPB Q6H PRN PRN Reason: Temperature Stop: 07/13/18 11:05 NOREPINEPHRINE BIT/0.9 % NACL (Levophed 4 Mg/ 250 Ml Ns Premixed) 4 mg in 250 mls @ 15 mls/hr IV .[id number] PRN; Protocol PRN Reason: TITRATE PER MD ORDER Last Admin: 07/11/18 11:00 Dose: 4 mcg/min, 15 mls/hr Vasopressin 20 units/ Sodium (Chloride) 101 mls @ 9.09 mls/hr IV .[id number] AGNES; Protocol Last Admin: 07/11/18 13:51 Dose: 9.09 mls/hr Lactated Ringer's (Lactated Ringer's) 500 mls @ 0 mls/hr IV .Q0M AGNES Results - Vital Signs Recent Vital Signs: Last Vital Signs Temp 100.7 F H 07/11/18 08:51 Pulse 103 H 07/11/18 08:51 Resp 24 07/11/18 08:51 BP 86/42 L 07/11/18 13:51 Pulse Ox 100 07/11/18 08:51 - Labs Result Diagrams: 07/11/18 06:45 07/11/18 05:30 Labs: Laboratory Results - last 24 hr 07/11/18 07/11/18 07/11/18 05:30 05:30 05:30 WBC RBC Hgb Hct MCV MCH MCHC RDW Plt Count MPV Gran % Lymph % (Auto) [place] % (Auto) Eos % (Auto) Baso % (Auto) Gran # Lymph # (Auto) [place] # (Auto) Eos # (Auto) Baso # (Auto) Neutrophils % (Manual) Band Neutrophils % Lymphocytes % (Manual) Monocytes % (Manual) Platelet Evaluation PT 16.3 H INR 1.41 APTT 24.2 L pO2 55 VBG pH 7.21 L VBG pCO2 24.0 L VBG HCO3 9.6 L VBG Total CO2 10.3 L VBG O2 Sat (Calc) 90.2 H VBG Base Excess -16.5 L VBG Potassium 3.0 L Sodium 142.0 141 Chloride 113.0 H 117 H Glucose 121 H Lactate 9.8 H* FiO2 21.0 Potassium 2.6 L* D Carbon Dioxide 10 L D Anion Gap 17 BUN 9 Creatinine 1.1 Est GFR ( Amer) 59 Est GFR (Non-Af Amer) 49 POC Glucose (mg/dL) Random Glucose 121 H Calcium 7.5 L Phosphorus 1.3 L* Magnesium 1.5 L Total Bilirubin 0.7 AST 43 H ALT 25 Alkaline Phosphatase 145 H D Total Protein 5.5 L Albumin 2.6 L Globulin 2.9 Albumin/Globulin Ratio 0.9 L Venous Blood Potassium 3.0 L Urine Color Urine Appearance Urine pH Ur Specific [place] Urine Protein Urine Glucose (UA) Urine Ketones Urine Blood Urine Nitrate Urine Bilirubin Urine Urobilinogen Ur Leukocyte Esterase Urine RBC Urine WBC Ur Epithelial Cells Urine Bacteria 07/11/18 07/11/18 07/11/18 06:25 06:45 08:45 WBC 3.5 L RBC 3.64 Hgb 11.4 L Hct 34.4 L MCV 94.5 D MCH 31.3 MCHC 33.1 RDW 14.5 Plt Count 42 L* MPV 11.3 H Gran % 93.4 H Lymph % (Auto) 4.9 L [place] % (Auto) 1.4 Eos % (Auto) 0.3 L Baso % (Auto) 0.0 Gran # 3.25 Lymph # (Auto) 0.2 L [place] # (Auto) 0.1 Eos # (Auto) 0.0 Baso # (Auto) 0.00 Neutrophils % (Manual) 84 H Band Neutrophils % 10 H Lymphocytes % (Manual) 5 L Monocytes % (Manual) 1 Platelet Evaluation Low PT INR APTT pO2 85 H VBG pH 7.18 L* VBG pCO2 26.0 L VBG HCO3 9.7 L VBG Total CO2 10.5 L VBG O2 Sat (Calc) 97.2 H VBG Base Excess -17.1 L VBG Potassium 3.2 L Sodium 141.0 Chloride 113.0 H Glucose 82 Lactate 9.9 H* FiO2 21.0 Potassium Carbon Dioxide Anion Gap BUN Creatinine Est GFR ( Amer) Est GFR (Non-Af Amer) POC Glucose (mg/dL) Random Glucose Calcium Phosphorus Magnesium Total Bilirubin AST ALT Alkaline Phosphatase Total Protein Albumin Globulin Albumin/Globulin Ratio Venous Blood Potassium 3.2 L Urine Color Light red Urine Appearance Cloudy Urine pH 6.5 Ur Specific [place] 1.015 Urine Protein 30 H Urine Glucose (UA) 500 H Urine Ketones Negative Urine Blood Large H Urine Nitrate Positive H Urine Bilirubin Negative Urine Urobilinogen 0.2 Ur Leukocyte Esterase Moderate H Urine RBC Tntc Urine WBC 10 - 15 Ur Epithelial Cells 0 - 2 Urine Bacteria Small 07/11/18 09:24 WBC RBC Hgb Hct MCV MCH MCHC RDW Plt Count MPV Gran % Lymph % (Auto) [place] % (Auto) Eos % (Auto) Baso % (Auto) Gran # Lymph # (Auto) [place] # (Auto) Eos # (Auto) Baso # (Auto) Neutrophils % (Manual) Band Neutrophils % Lymphocytes % (Manual) Monocytes % (Manual) Platelet Evaluation PT INR APTT pO2 VBG pH VBG pCO2 VBG HCO3 VBG Total CO2 VBG O2 Sat (Calc) VBG Base Excess VBG Potassium Sodium Chloride Glucose Lactate FiO2 Potassium Carbon Dioxide Anion Gap BUN Creatinine Est GFR ( Amer) Est GFR (Non-Af Amer) POC Glucose (mg/dL) 72 Random Glucose Calcium Phosphorus Magnesium Total Bilirubin AST ALT Alkaline Phosphatase Total Protein Albumin Globulin Albumin/Globulin Ratio Venous Blood Potassium Urine Color Urine Appearance Urine pH Ur Specific [place] Urine Protein Urine Glucose (UA) Urine Ketones Urine Blood Urine Nitrate Urine Bilirubin Urine Urobilinogen Ur Leukocyte Esterase Urine RBC Urine WBC Ur Epithelial Cells Urine Bacteria
[2018-07-11] MEDS ORDERED: Enoxaparin 40 mg Syringe SC SCH (16:00)
[2018-07-11] MEDS ORDERED: Dextrose 50% SYRINGE Inj (50 ml) IVP ONE (16:21)
[2018-07-11 16:50] LABS: VENOUS BLOOD GAS BASE EXCESS -17.1 mmol/L (0.0-2.0); VENOUS BLOOD GAS PO2 190 mm/Hg (30-55); VENOUS BLOOD PH 7.22 (7.32-7.43)
[2018-07-11] MEDS ORDERED: Pneumococcal 23-Valent Vaccine IM ONE (16:52)
[2018-07-11] MEDS ORDERED: Influenza Vaccine 60 mcg/0.5 mL SYR (4YR UP) IM ONE (16:52)
[2018-07-11 17:02] LABS: ALB/GLOB RATIO 0.8 (1.1-1.8)
[2018-07-11] MEDS ORDERED: Magnesium Sulfate 2 gm/50 ml 2 GM/50 ML BAG IVPB ONE (18:28)
--- NOTE | 2018-07-11 18:52 | PN ---
DATE: 07/11/2018 SUBJECTIVE: This is a 72-year-old patient who is well known to me. The patient has had multiple episodes of urosepsis. She has bilateral stones. She has not been seen in over a year. She is noncompliant with followup and treatment. She is now in the Intensive Care Unit with septic shock. She is on blood pressure support with Levophed. She was febrile, which has now come down to 99.7, her pulse is 100, blood pressure is 95/33 with a respirations of 27 on Levophed and apparently vasopressin. I discussed this patient with the enterprise resource planner educational aide, Dr. Chaparro. The patient may have ureteral stents in place at this time as she has not followed up after her last episode. Patient is colonized and continues to grow Pseudomonas, which is the likely source of her septic shock. The patient's blood work shows thrombocytopenia to a level of 42,000 platelets and a depressed WBC count of 3.5. My recommendation is for an emergent Interventional Radiology consultation. The patient has septic shock on blood pressure support. She cannot go to the operating room and have anesthesia. The patient has not responded well to stenting in the past and she requires better drainage then an ureteral stent can provide. The patient will need correction of her platelets prior to any nephrostomy tube placement. A bedside renal ultrasound has been ordered. She has a history of chronic hydronephrosis as it is with the indwelling stent, which is another reason why she should be drained from above. The patient should be continued on aggressive resuscitation with antibiotics, fluids and blood pressure support, but my recommendation is not to wait to call Interventional Radiology, this should be done as soon as possible. If there is bilateral hydronephrosis then bilateral nephrostomy tubes should be placed as this patient has had multiple recurrent episodes of urosepsis and she has multiple other comorbidities including Crohn's disease, subdural hematoma, diabetes and multiple other issues. Miguel Win MD
--- NOTE | 2018-07-11 20:44 | CP.PCM.HP ---
<GurpreetSivakumar - Last Filed: 07/11/18 20:34> History of Present Illness - History of Present Illness History of Present Illness: Sivakumar Vázquez, PGY1 Medicine H&P for Dr. Hoyos Patient is a 72 y/o F with PMHx of recurrent nephrolithiasis, recurrent UTIs, ureterovesicular reflux, DM2, Crohn's disease, h/o subdural hematoma brought in by EMS to [facility] [place] complaints of fever/chills/diarrhea x 2days. Pt also c/o low back pain but states it's chronic. Per ED, patient was A&Ox3 when she came in, with no signs of respiratory distress. EKG showed sinus tachycardia. Patient met SIRS criteria with Temp 100.7, HR 103, and BP 63/36. K was 2.6. Patient had negative CXR but UA was positive for UTI. VBG indicated acidosis, pH 7.2 with elevated lactate of 9.6. Patient was given a bolus of LR but blood pressure was not responding to fluid resuscitation. Patient given cefepime and vanco and also started on NS IVF at 125 mls/hr. Patient was given a bolus of LR but blood pressure was not responding to fluid resuscitation. ICU was consulted and patient was admitted to the unit for urosepsis. During arrival patient's mental status was declining. Medical team examined patient. She was unable to provide r eliable ROS due to altered mental status. Central line was placed during this time. Case was discussed with ICU team. As per prior charting: PMHx: recurrent nephrolithiasis, UTIs, b/l hydronephrosis, crohns disease, h/o subdural hematoma PSH: b/l ureteral stents, cholecystectomy, appendectomy All: latex, cashew, nut, naproxen, cats FMH: Mother: at 65 due to MS. Father: at 65 due to coma passed from unknown reason PMD: Dr. Oleg Browne Urologist: Dr. Horvath Present on Admission - Present on Admission Any Indicators Present on Admission: No History of DVT/PE: No History of Uncontrolled Diabetes: No Urinary Catheter: No Decubitus Ulcer Present: No Review of Systems - Review of Systems Systems not reviewed;Unavailable: Altered Mental Status Past Patient History - Infectious Disease Hx of Infectious Diseases: None - Tetanus Immunizations Tetanus Immunization: Unknown - Past Social History Smoking Status: Never Smoked - CARDIAC Hx Pacemaker: No - PULMONARY Hx Respiratory Disorders: Yes Hx Asthma: Yes - NEUROLOGICAL Hx Paralysis: No - HEENT Hx HEENT Problems: No Hx Cataracts: Yes - RENAL Hx Chronic Kidney Disease: Yes Hx Kidney Stones: Yes Other/Comment: RENAL CALCULI - ENDOCRINE/METABOLIC Hx Diabetes Mellitus Type 2: Yes (NIDD) - HEMATOLOGICAL/ONCOLOGICAL Hx Blood Transfusions: Yes (2014) Hx Blood Transfusion Reaction: No - INTEGUMENTARY Hx Dermatological Problems: No - MUSCULOSKELETAL/RHEUMATOLOGICAL Hx Musculoskeletal Disorders: Yes (RIB INJURY) - GASTROINTESTINAL Hx Gastrointestinal Disorders: Yes Hx Crohn's Disease: Yes Other/Comment: CHOLELITHAISIS. GASTRIC BYPASS - GENITOURINARY/GYNECOLOGICAL Hx Genitourinary Disorders: Yes (PYELONEPHRITIS,PSEUDOMONAS UTI,RENAL CA) Other/Comment: kidney stone - PSYCHIATRIC Hx Emotional Abuse: No Hx Physical Abuse: No Hx Substance Use: No - SURGICAL HISTORY Hx Cholecystectomy: Yes Hx Gastric Bypass Surgery: Yes Other/Comment: kidney surgery - ANESTHESIA Hx Anesthesia Reactions: No Hx Malignant Hyperthermia: No Meds Allergies/Adverse Reactions: Allergies Allergy/AdvReac Type Severity Reaction Status Date / Time latex Allergy Severe ANAPHYLAXIS Verified 07/11/18 14:32 cashew nut Allergy Intermediate SWELLING-TH Verified 07/11/18 14:32 ROAT naproxen AdvReac Intermediate SWELLING/WELTS Verified 07/11/18 14:32 ON LEGS cats Allergy Intermediate SWELLING/EY Uncoded 07/11/18 14:32 ES Physical Exam - Constitutional Appears: Confused - Head Exam Head Exam: ATRAUMATIC, NORMAL INSPECTION, NORMOCEPHALIC - Eye Exam Eye Exam: EOMI, Normal appearance, PERRL Pupil Exam: NORMAL ACCOMODATION, PERRL - ENT Exam ENT Exam: Mucous Membranes Moist, Normal Exam - Respiratory Exam Respiratory Exam: Clear to Auscultation Bilateral. absent: Wheezes, Respiratory Distress, Stridor - Cardiovascular Exam Cardiovascular Exam: RRR, +S1, +S2 - GI/Abdominal Exam GI & Abdominal Exam: Soft. absent: Firm, Guarding - Extremities Exam Extremities exam: Positive for: pedal pulses present - Neurological Exam Neurological exam: Altered - Skin Skin Exam: Dry, Intact, Normal Color, Warm Results - Vital Signs Recent Vital Signs: Last Vital Signs Temp 99.7 F H 07/11/18 18:03 Pulse 100 H 07/11/18 17:30 Resp 27 H 07/11/18 17:30 BP 95/33 L 07/11/18 17:30 Pulse Ox 99 07/11/18 17:30 - Labs Result Diagrams: 07/11/18 06:45 07/11/18 16:33 Labs: Laboratory Results - last 24 hr 07/11/18 07/11/18 07/11/18 05:30 05:30 05:30 WBC RBC Hgb Hct MCV MCH MCHC RDW Plt Count MPV Gran % Lymph % (Auto) [place] % (Auto) Eos % (Auto) Baso % (Auto) Gran # Lymph # (Auto) [place] # (Auto) Eos # (Auto) Baso # (Auto) Neutrophils % (Manual) Band Neutrophils % Lymphocytes % (Manual) Monocytes % (Manual) Platelet Evaluation PT 16.3 H INR 1.41 APTT 24.2 L pO2 55 VBG pH 7.21 L VBG pCO2 24.0 L VBG HCO3 9.6 L VBG Total CO2 10.3 L VBG O2 Sat (Calc) 90.2 H VBG Base Excess -16.5 L VBG Potassium 3.0 L Sodium 142.0 141 Chloride 113.0 H 117 H Glucose 121 H Lactate 9.8 H* FiO2 21.0 Potassium 2.6 L* D Carbon Dioxide 10 L D Anion Gap 17 BUN 9 Creatinine 1.1 Est GFR ( Amer) 59 Est GFR (Non-Af Amer) 49 POC Glucose (mg/dL) Random Glucose 121 H Calcium 7.5 L Phosphorus 1.3 L* Magnesium 1.5 L Total Bilirubin 0.7 AST 43 H ALT 25 Alkaline Phosphatase 145 H D Total Protein 5.5 L Albumin 2.6 L Globulin 2.9 Albumin/Globulin Ratio 0.9 L Venous Blood Potassium 3.0 L Urine Color Urine Appearance Urine pH Ur Specific [place] Urine Protein Urine Glucose (UA) Urine Ketones Urine Blood Urine Nitrate Urine Bilirubin Urine Urobilinogen Ur Leukocyte Esterase Urine RBC Urine WBC Ur Epithelial Cells Urine Bacteria 07/11/18 07/11/18 07/11/18 06:25 06:45 08:45 WBC 3.5 L RBC 3.64 Hgb 11.4 L Hct 34.4 L MCV 94.5 D MCH 31.3 MCHC 33.1 RDW 14.5 Plt Count 42 L* MPV 11.3 H Gran % 93.4 H Lymph % (Auto) 4.9 L [place] % (Auto) 1.4 Eos % (Auto) 0.3 L Baso % (Auto) 0.0 Gran # 3.25 Lymph # (Auto) 0.2 L [place] # (Auto) 0.1 Eos # (Auto) 0.0 Baso # (Auto) 0.00 Neutrophils % (Manual) 84 H Band Neutrophils % 10 H Lymphocytes % (Manual) 5 L Monocytes % (Manual) 1 Platelet Evaluation Low PT INR APTT pO2 85 H VBG pH 7.18 L* VBG pCO2 26.0 L VBG HCO3 9.7 L VBG Total CO2 10.5 L VBG O2 Sat (Calc) 97.2 H VBG Base Excess -17.1 L VBG Potassium 3.2 L Sodium 141.0 Chloride 113.0 H Glucose 82 Lactate 9.9 H* FiO2 21.0 Potassium Carbon Dioxide Anion Gap BUN Creatinine Est GFR ( Amer) Est GFR (Non-Af Amer) POC Glucose (mg/dL) Random Glucose Calcium Phosphorus Magnesium Total Bilirubin AST ALT Alkaline Phosphatase Total Protein Albumin Globulin Albumin/Globulin Ratio Venous Blood Potassium 3.2 L Urine Color Light red Urine Appearance Cloudy Urine pH 6.5 Ur Specific [place] 1.015 Urine Protein 30 H Urine Glucose (UA) 500 H Urine Ketones Negative Urine Blood Large H Urine Nitrate Positive H Urine Bilirubin Negative Urine Urobilinogen 0.2 Ur Leukocyte Esterase Moderate H Urine RBC Tntc Urine WBC 10 - 15 Ur Epithelial Cells 0 - 2 Urine Bacteria Small 07/11/18 07/11/18 07/11/18 09:24 11:14 16:19 WBC RBC Hgb Hct MCV MCH MCHC RDW Plt Count MPV Gran % Lymph % (Auto) [place] % (Auto) Eos % (Auto) Baso % (Auto) Gran # Lymph # (Auto) [place] # (Auto) Eos # (Auto) Baso # (Auto) Neutrophils % (Manual) Band Neutrophils % Lymphocytes % (Manual) Monocytes % (Manual) Platelet Evaluation PT INR APTT pO2 VBG pH VBG pCO2 VBG HCO3 VBG Total CO2 VBG O2 Sat (Calc) VBG Base Excess VBG Potassium Sodium Chloride Glucose Lactate FiO2 Potassium Carbon Dioxide Anion Gap BUN Creatinine Est GFR ( Amer) Est GFR (Non-Af Amer) POC Glucose (mg/dL) 72 78 58 L Random Glucose Calcium Phosphorus Magnesium Total Bilirubin AST ALT Alkaline Phosphatase Total Protein Albumin Globulin Albumin/Globulin Ratio Venous Blood Potassium Urine Color Urine Appearance Urine pH Ur Specific [place] Urine Protein Urine Glucose (UA) Urine Ketones Urine Blood Urine Nitrate Urine Bilirubin Urine Urobilinogen Ur Leukocyte Esterase Urine RBC Urine WBC Ur Epithelial Cells Urine Bacteria 07/11/18 07/11/18 07/11/18 16:33 16:33 17:19 WBC RBC Hgb Hct MCV MCH MCHC RDW Plt Count MPV Gran % Lymph % (Auto) [place] % (Auto) Eos % (Auto) Baso % (Auto) Gran # Lymph # (Auto) [place] # (Auto) Eos # (Auto) Baso # (Auto) Neutrophils % (Manual) Band Neutrophils % Lymphocytes % (Manual) Monocytes % (Manual) Platelet Evaluation PT INR APTT pO2 190 H VBG pH 7.22 L VBG pCO2 21.0 L VBG HCO3 8.6 L VBG Total CO2 9.2 L VBG O2 Sat (Calc) 99.6 H VBG Base Excess -17.1 L VBG Potassium 3.1 L Sodium 141.0 140 Chloride 114.0 H 118 H Glucose 55 L Lactate 8.7 H* FiO2 21.0 Potassium 3.2 L Carbon Dioxide 9 L Anion Gap 17 BUN 10 Creatinine 1.2 Est GFR ( Amer) 54 Est GFR (Non-Af Amer) 44 POC Glucose (mg/dL) 112 H Random Glucose 54 L Calcium 7.0 L Phosphorus 2.6 Magnesium 1.6 L Total Bilirubin 0.9 AST 37 H ALT 33 Alkaline Phosphatase 102 Total Protein 4.5 L Albumin 2.0 L Globulin 2.5 Albumin/Globulin Ratio 0.8 L Venous Blood Potassium 3.1 L Urine Color Urine Appearance Urine pH Ur Specific [place] Urine Protein Urine Glucose (UA) Urine Ketones Urine Blood Urine Nitrate Urine Bilirubin Urine Urobilinogen Ur Leukocyte Esterase Urine RBC Urine WBC Ur Epithelial Cells Urine Bacteria Assessment & Plan - Assessment and Plan (Free Text) Assessment: Patient is a 72 y/o F with PMHx of recurrent nephrolithiasis, recurrent UTIs, ureterovesicular reflux, DM2, Crohn's disease, h/o subdural hematoma brought in by EMS to [facility] [place] with complaints of fever/chills/diarrhea x 2days. Patient was admitted to ICU for septic shock 2/2 Urosepsis. Plan: Septic Shock 2/2 Urosepsis with Hx of recurrent nephrolithiasis - Cefepime and meropenem for antibiotic coverage - SIRS criteria met, T 100.7, HR 103, wbc 3.5 with source of infection - BP not responding to fluid resuscitation (SBP <90), R-IJ central line placed by ICU team - Levophed with vasopressin; maintain MAP > 60 - As per ICU recommendations, bicarb gtt if pH < 7.15 - ID consulted, f/u recs - Urology consulted, f/u recs - Nephrology consulted, f/u recs - UA + UTI - Monitor blood pressure - Lactate 9.8, repeat lactate level 9.9; continue to trend - f/u blood cx - f/u ucx - CXR: no active disease Hypokalemia - replete as needed - 2.6 on admission; repeat was 3.2; no EKG changes - monitor HypoMg - 1.5 on admission - replete as needed - monitor HypoPhos - 1.3 on admission - replete as needed - monitor DVT ppx: lovenox GI ppx: PTX Dispo: continue to monitor patient in the ICU. Case was discussed and reviewed with Attending Physician, Dr. Hoyos <Ila Hoyos - Last Filed: 07/12/18 07:12> Results - Vital Signs Recent Vital Signs: Last Vital Signs Temp 99.7 F H 07/11/18 18:03 Pulse 107 H 07/12/18 03:15 Resp 30 H 07/12/18 03:15 BP 91/41 L 07/12/18 03:15 Pulse Ox 92 L 07/12/18 03:15 - Labs Result Diagrams: 07/11/18 06:45 07/11/18 16:33 Labs: Laboratory Results - last 24 hr 07/11/18 07/11/18 07/11/18 05:30 06:45 08:45 WBC 3.5 L RBC 3.64 Hgb 11.4 L Hct 34.4 L MCV 94.5 D MCH 31.3 MCHC 33.1 RDW 14.5 Plt Count 42 L* MPV 11.3 H Gran % 93.4 H Lymph % (Auto) 4.9 L [place] % (Auto) 1.4 Eos % (Auto) 0.3 L Baso % (Auto) 0.0 Gran # 3.25 Lymph # (Auto) 0.2 L [place] # (Auto) 0.1 Eos # (Auto) 0.0 Baso # (Auto) 0.00 Neutrophils % (Manual) 84 H Band Neutrophils % 10 H Lymphocytes % (Manual) 5 L Monocytes % (Manual) 1 Platelet Evaluation Low pO2 55 85 H VBG pH 7.21 L 7.18 L* VBG pCO2 24.0 L 26.0 L VBG HCO3 9.6 L 9.7 L VBG Total CO2 10.3 L 10.5 L VBG O2 Sat (Calc) 90.2 H 97.2 H VBG Base Excess -16.5 L -17.1 L VBG Potassium 3.0 L 3.2 L Sodium 142.0 141.0 Chloride 113.0 H 113.0 H Glucose 121 H 82 Lactate 9.8 H* 9.9 H* FiO2 21.0 21.0 Potassium Carbon Dioxide Anion Gap BUN Creatinine Est GFR ( Amer) Est GFR (Non-Af Amer) POC Glucose (mg/dL) Random Glucose Calcium Phosphorus Magnesium Total Bilirubin AST ALT Alkaline Phosphatase Total Protein Albumin Globulin Albumin/Globulin Ratio Venous Blood Potassium 3.0 L 3.2 L 07/11/18 07/11/18 07/11/18 09:24 11:14 16:19 WBC RBC Hgb Hct MCV MCH MCHC RDW Plt Count MPV Gran % Lymph % (Auto) [place] % (Auto) Eos % (Auto) Baso % (Auto) Gran # Lymph # (Auto) [place] # (Auto) Eos # (Auto) Baso # (Auto) Neutrophils % (Manual) Band Neutrophils % Lymphocytes % (Manual) Monocytes % (Manual) Platelet Evaluation pO2 VBG pH VBG pCO2 VBG HCO3 VBG Total CO2 VBG O2 Sat (Calc) VBG Base Excess VBG Potassium Sodium Chloride Glucose Lactate FiO2 Potassium Carbon Dioxide Anion Gap BUN Creatinine Est GFR ( Amer) Est GFR (Non-Af Amer) POC Glucose (mg/dL) 72 78 58 L Random Glucose Calcium Phosphorus Magnesium Total Bilirubin AST ALT Alkaline Phosphatase Total Protein Albumin Globulin Albumin/Globulin Ratio Venous Blood Potassium 07/11/18 07/11/18 07/11/18 16:33 16:33 17:19 WBC RBC Hgb Hct MCV MCH MCHC RDW Plt Count MPV Gran % Lymph % (Auto) [place] % (Auto) Eos % (Auto) Baso % (Auto) Gran # Lymph # (Auto) [place] # (Auto) Eos # (Auto) Baso # (Auto) Neutrophils % (Manual) Band Neutrophils % Lymphocytes % (Manual) Monocytes % (Manual) Platelet Evaluation pO2 190 H VBG pH 7.22 L VBG pCO2 21.0 L VBG HCO3 8.6 L VBG Total CO2 9.2 L VBG O2 Sat (Calc) 99.6 H VBG Base Excess -17.1 L VBG Potassium 3.1 L Sodium 141.0 140 Chloride 114.0 H 118 H Glucose 55 L Lactate 8.7 H* FiO2 21.0 Potassium 3.2 L Carbon Dioxide 9 L Anion Gap 17 BUN 10 Creatinine 1.2 Est GFR ( Amer) 54 Est GFR (Non-Af Amer) 44 POC Glucose (mg/dL) 112 H Random Glucose 54 L Calcium 7.0 L Phosphorus 2.6 Magnesium 1.6 L Total Bilirubin 0.9 AST 37 H ALT 33 Alkaline Phosphatase 102 Total Protein 4.5 L Albumin 2.0 L Globulin 2.5 Albumin/Globulin Ratio 0.8 L Venous Blood Potassium 3.1 L 07/11/18 07/11/18 07/12/18 21:08 22:37 01:43 WBC RBC Hgb Hct MCV MCH MCHC RDW Plt Count MPV Gran % Lymph % (Auto) [place] % (Auto) Eos % (Auto) Baso % (Auto) Gran # Lymph # (Auto) [place] # (Auto) Eos # (Auto) Baso # (Auto) Neutrophils % (Manual) Band Neutrophils % Lymphocytes % (Manual) Monocytes % (Manual) Platelet Evaluation pO2 50 49 VBG pH 7.25 L 7.30 L VBG pCO2 20.0 L 19.0 L* VBG HCO3 8.8 L 9.3 L VBG Total CO2 9.4 L 9.9 L VBG O2 Sat (Calc) 90.0 H 89.1 H VBG Base Excess -16.3 L -14.7 L VBG Potassium 4.4 3.9 Sodium 139.0 140.0 Chloride 113.0 H 113.0 H Glucose 196 H 154 H Lactate 7.8 H* 6.6 H* FiO2 21.0 21.0 Potassium Carbon Dioxide Anion Gap BUN Creatinine Est GFR ( Amer) Est GFR (Non-Af Amer) POC Glucose (mg/dL) 205 H Random Glucose Calcium Phosphorus Magnesium Total Bilirubin AST ALT Alkaline Phosphatase Total Protein Albumin Globulin Albumin/Globulin Ratio Venous Blood Potassium 4.4 3.9 Attending/Attestation - Attestation I have personally seen and examined this patient.: Yes I have fully participated in the care of the patient.: Yes I have reviewed all pertinent clinical information: Yes Notes (Text): 07/11/18 72 year old female with past medical history of UTI, nephrolithiasis, diabetes, and history of subdural hematoma who presented with fever and chills. She was found to have septic shock seondary to UTI and admitted to the ICU. BP did not respond to fluid resuscitation and she is started on pressors. Continue with iv antibiotics as per ID. Will follow up on cultures. Will replete and repeat lytes and follow up on renal ultrasound. Nephrology is also following for metabolic acidosis. Ila Hoyos MD Hospitalist.
[2018-07-11 22:43] LABS: VENOUS BLOOD GAS BASE EXCESS -16.3 mmol/L (0.0-2.0); VENOUS BLOOD GAS PO2 50 mm/Hg (30-55); VENOUS BLOOD PH 7.25 (7.32-7.43)
[2018-07-12 01:54] LABS: VENOUS BLOOD GAS BASE EXCESS -14.7 mmol/L (0.0-2.0); VENOUS BLOOD GAS PO2 49 mm/Hg (30-55)
--- NOTE | 2018-07-12 03:56 | CP.CCUPN ---
CCU Subjective - Physician Review Subjective (Free Text): 07/12/18 03:[address] head w/o contrast due to patient's daughter mentioning previous history or subdural hematoma, mention of possible fall from patient's who has alzheimer's and patient's AMS. Radiology called to inform about frontal 1.5 cm subarachnoid hemorrhage found from CT head. Discussed with patient's daughter the findings. Called Neurology and Neurosurgery to discuss further management. As per neurosurgery no surgical intervention needed at this time as this is not likely due to aneurysm since location is in frontal lobe and therefore superifical; recommends medically managing for now with neurology. Will monitor pressure make sure it's not above 140/80, hob >35 degrees, seizure precautions, fall precautions, swallow eval, PT/OT, SCDs, will d/c anticoagulation. CCU Objective - Vital Signs / Intake & Output Vital Signs (Last 4 hours): Vital Signs Pulse Resp BP Pulse Ox 07/12/18 03:15 107 H 30 H 91/41 L 92 L 07/12/18 03:10 105 H 31 H 98 07/12/18 03:00 112 H 36 H 95/78 L 88 L 07/12/18 02:50 109 H 29 H 98 07/12/18 02:45 114 H 96/35 L 92 L 07/12/18 02:40 105 H 26 H 97 07/12/18 02:31 114 H 29 H 101/39 L 86 L 07/12/18 02:30 113 H 29 H 91 L 07/12/18 02:20 109 H 31 H 97 07/12/18 02:15 106 H 32 H 97/47 L 07/12/18 02:14 109 H 30 H 97 07/12/18 02:10 107 H 31 H 97 07/12/18 02:00 106 H 29 H 93/34 L 96 07/12/18 01:50 108 H 32 H 98 07/12/18 01:46 108 H 30 H 110/46 L 99 07/12/18 01:40 107 H 32 H 98 07/12/18 01:30 107 H 30 H 104/48 L 95 07/12/18 01:20 108 H 32 H 99 07/12/18 01:15 102/47 L 07/12/18 01:14 109 H 32 H 99 07/12/18 01:10 107 H 32 H 99 07/12/18 01:00 110 H 32 H 105/77 96 07/12/18 00:50 107 H 32 H 99 07/12/18 00:45 116 H 32 H 91/43 L 96 07/12/18 00:40 107 H 33 H 98 07/12/18 00:30 99/45 L 07/12/18 00:29 107 H 33 H 98 07/12/18 00:20 108 H 32 H 98 07/12/18 00:15 107 H 31 H 97/50 L 97 07/12/18 00:10 108 H 32 H 92 L 07/12/18 00:00 107 H 31 H 97/46 L 95 Intake and Output (Last 8hrs): Intake & Output 07/11/18 07/11/18 07/12/18 14:59 22:59 06:59 Intake Total 1438 Output Total 750 Balance 688 Intake: IV 1338 Right Antecubital 1058 Oral 100 Output: Urine 750 Urethral (Zendeajs) 750 Other: # Bowel Movements 2 - Physical Exam Head: Positive for: Atraumatic, Normocephalic Pupils: Positive for: PERRL Extroacular Muscles: Positive for: EOMI Conjunctiva: Positive for: Normal Mouth: Positive for: Moist Mucous Membranes Neck: Positive for: Normal Range of Motion Respiratory/Chest: Positive for: Clear to Auscultation, Good Air Exchange. Neg ative for: Respiratory Distress, Accessory Muscle Use Cardiovascular: Positive for: Regular Rate and Rhythm, Normal S1, S2. Negative for: Murmurs Abdomen: Negative for: Tenderness, Distention, Peritoneal Signs Back: Positive for: Normal Inspection Upper Extremity: Positive for: Normal Inspection. Negative for: Cyanosis, Edema Lower Extremity: Positive for: Swelling (Swelling to ankles bilaterally). Negative for: Edema Neurological: Positive for: GCS=15, CN II-XII Intact, Speech Normal Skin: Positive for: Dry, Normal Color, Hot (to touch). Negative for: Rashes Psychiatric: Positive for: Alert, Oriented x 3, Normal Insight, Normal Concentration - Medications Active Medications: Active Medications Generic Name Dose Route Start Last Admin Trade Name Freq PRN Reason Stop Dose Admin Meropenem 1 gm in 50 mls @ 100 mls/hr 07/11/18 10:30 07/11/18 22:08 Merrem Iv 1 Gm Premix IVPB 100 mls/hr Q12 AGNES Administration Protocol Acetaminophen 1,000 mg in 100 mls @ 400 mls/hr 07/11/18 11:04 Ofirmev IVPB 07/13/18 11:05 Q6H PRN Temperature NOREPINEPHRINE BIT/0.9 % NACL 4 mg in 250 mls @ 15 mls/hr 07/11/18 11:47 07/11/18 19:35 Levophed 4 Mg/ 250 Ml Ns Premixed IV 14 mcg/min .[id number] PRN 52.5 mls/hr TITRATE PER MD ORDER Titration Protocol 4 MCG/MIN Vasopressin 20 units/ Sodium 101 mls @ 9.09 mls/hr 07/11/18 13:15 07/12/18 00:00 Chloride IV 9.09 mls/hr .[id number] AGNES Administration Protocol 0.03 U/MIN Lactated Ringer's 500 mls @ 0 mls/hr 07/11/18 14:26 Lactated Ringer's IV .Q0M AGNES Per Protocol Pantoprazole Sodium 40 mg 07/11/18 16:00 07/11/18 17:17 Protonix Inj IVP 40 mg DAILY AGNES Administration - Patient Studies Lab Studies: Microbiology Studies 07/11/18 05:30 Blood Culture - Preliminary Blood Gram Negative Daniele Gram Stain - Final 07/11/18 05:30 Blood Culture - Preliminary Blood Gram Negative Daniele Gram Stain - Final Lab Studies 07/12/18 07/11/18 07/11/18 Range/Units 01:43 22:37 21:08 WBC (4.5-11.0) 10^3/uL RBC (3.5-6.1) 10^6/uL Hgb (12.0-16.0) g/dL Hct (36.0-48.0) % MCV (80.0-105.0) fl MCH (25.0-35.0) pg MCHC (31.0-37.0) g/dl RDW (11.5-14.5) % Plt Count (120.0-450.0) 10^3/uL MPV (7.0-11.0) fl Gran % (50.0-68.0) % Lymph % (Auto) (22.0-35.0) % Mills % (Auto) (1.0-6.0) % Eos % (Auto) (1.5-5.0) % Baso % (Auto) (0.0-3.0) % Gran # (1.4-6.5) Lymph # (Auto) (1.2-3.4) Mills # (Auto) (0.1-0.6) Eos # (Auto) (0.0-0.7) Baso # (Auto) (0.0-2.0) K/mm3 Neutrophils % (Manual) (50.0-70.0) % Band Neutrophils % (0-2) % Lymphocytes % (Manual) (22.0-35.0) % Monocytes % (Manual) (1.0-6.0) % Platelet Evaluation (NORMAL) PT (9.4-12.5) SECONDS INR APTT (25.1-36.5) Seconds pO2 49 50 (30-55) mm/Hg VBG pH 7.30 L 7.25 L (7.32-7.43) VBG pCO2 19.0 L* 20.0 L (40-60) VBG HCO3 9.3 L 8.8 L (21-28) mmol/l VBG Total CO2 9.9 L 9.4 L (22-28) mmol.L VBG O2 Sat (Calc) 89.1 H 90.0 H (40-65) % VBG Base Excess -14.7 L -16.3 L (0.0-2.0) mmol/L VBG Potassium 3.9 4.4 (3.6-5.2) mmol/L Sodium 140.0 139.0 (132-148) mmol/L Chloride 113.0 H 113.0 H (98-107) mmol/L Glucose 154 H 196 H (65-105) mg/dl Lactate 6.6 H* 7.8 H* (0.7-2.1) mmol/L FiO2 21.0 21.0 % Potassium (3.6-5.0) mmol/L Carbon Dioxide (21-33) mmol/L Anion Gap (10-20) BUN (7-21) mg/dL Creatinine (0.7-1.2) mg/dl Est GFR ( Amer) Est GFR (Non-Af Amer) POC Glucose (mg/dL) 205 H (65-110) mg/dL Random Glucose (70-110) mg/dL Calcium (8.4-10.5) mg/dL Phosphorus (2.5-4.5) mg/dL Magnesium (1.7-2.2) mg/dL Total Bilirubin (0.2-1.3) mg/dL AST (14-36) U/L ALT (7-56) U/L Alkaline Phosphatase (38-126) U/L Total Protein (5.8-8.3) g/dL Albumin (3.0-4.8) g/dL Globulin gm/dL Albumin/Globulin Ratio (1.1-1.8) Venous Blood Potassium 3.9 4.4 (3.6-5.2) mmol/L Urine Color (YELLOW) Urine Appearance (CLEAR) Urine pH (4.7-8.0) Ur Specific Dickens (1.005-1.035) Urine Protein (<30 mg/dL) mg/dL Urine Glucose (UA) (NEGATIVE) mg/dL Urine Ketones (NEGATIVE) mg/dL Urine Blood (NEGATIVE) Urine Nitrate (NEGATIVE) Urine Bilirubin (NEGATIVE) Urine Urobilinogen (<1 E.U./dL) E.U./dL Ur Leukocyte Esterase (NEGATIVE) Fifi/uL Urine RBC (0-2) /hpf Urine WBC (0-6) /hpf Ur Epithelial Cells (0-5) /hpf Urine Bacteria (NEG) 07/11/18 07/11/18 07/11/18 Range/Units 17:19 16:33 16:33 WBC (4.5-11.0) 10^3/uL RBC (3.5-6.1) 10^6/uL Hgb (12.0-16.0) g/dL Hct (36.0-48.0) % MCV (80.0-105.0) fl MCH (25.0-35.0) pg MCHC (31.0-37.0) g/dl RDW (11.5-14.5) % Plt Count (120.0-450.0) 10^3/uL MPV (7.0-11.0) fl Gran % (50.0-68.0) % Lymph % (Auto) (22.0-35.0) % Mills % (Auto) (1.0-6.0) % Eos % (Auto) (1.5-5.0) % Baso % (Auto) (0.0-3.0) % Gran # (1.4-6.5) Lymph # (Auto) (1.2-3.4) Mills # (Auto) (0.1-0.6) Eos # (Auto) (0.0-0.7) Baso # (Auto) (0.0-2.0) K/mm3 Neutrophils % (Manual) (50.0-70.0) % Band Neutrophils % (0-2) % Lymphocytes % (Manual) (22.0-35.0) % Monocytes % (Manual) (1.0-6.0) % Platelet Evaluation (NORMAL) PT (9.4-12.5) SECONDS INR APTT (25.1-36.5) Seconds pO2 190 H (30-55) mm/Hg VBG pH 7.22 L (7.32-7.43) VBG pCO2 21.0 L (40-60) VBG HCO3 8.6 L (21-28) mmol/l VBG Total CO2 9.2 L (22-28) mmol.L VBG O2 Sat (Calc) 99.6 H (40-65) % VBG Base Excess -17.1 L (0.0-2.0) mmol/L VBG Potassium 3.1 L (3.6-5.2) mmol/L Sodium 140 141.0 (132-148) mmol/L Chloride 118 H 114.0 H (98-107) mmol/L Glucose 55 L (65-105) mg/dl Lactate 8.7 H* (0.7-2.1) mmol/L FiO2 21.0 % Potassium 3.2 L (3.6-5.0) mmol/L Carbon Dioxide 9 L (21-33) mmol/L Anion Gap 17 (10-20) BUN 10 (7-21) mg/dL Creatinine 1.2 (0.7-1.2) mg/dl Est GFR ( Amer) 54 Est GFR (Non-Af Amer) 44 POC Glucose (mg/dL) 112 H (65-110) mg/dL Random Glucose 54 L (70-110) mg/dL Calcium 7.0 L (8.4-10.5) mg/dL Phosphorus 2.6 (2.5-4.5) mg/dL Magnesium 1.6 L (1.7-2.2) mg/dL Total Bilirubin 0.9 (0.2-1.3) mg/dL AST 37 H (14-36) U/L ALT 33 (7-56) U/L Alkaline Phosphatase 102 (38-126) U/L Total Protein 4.5 L (5.8-8.3) g/dL Albumin 2.0 L (3.0-4.8) g/dL Globulin 2.5 gm/dL Albumin/Globulin Ratio 0.8 L (1.1-1.8) Venous Blood Potassium 3.1 L (3.6-5.2) mmol/L Urine Color (YELLOW) Urine Appearance (CLEAR) Urine pH (4.7-8.0) Ur Specific Dickens (1.005-1.035) Urine Protein (<30 mg/dL) mg/dL Urine Glucose (UA) (NEGATIVE) mg/dL Urine Ketones (NEGATIVE) mg/dL Urine Blood (NEGATIVE) Urine Nitrate (NEGATIVE) Urine Bilirubin (NEGATIVE) Urine Urobilinogen (<1 E.U./dL) E.U./dL Ur Leukocyte Esterase (NEGATIVE) Fifi/uL Urine RBC (0-2) /hpf Urine WBC (0-6) /hpf Ur Epithelial Cells (0-5) /hpf Urine Bacteria (NEG) 07/11/18 07/11/18 07/11/18 Range/Units 16:19 11:14 09:24 WBC (4.5-11.0) 10^3/uL RBC (3.5-6.1) 10^6/uL Hgb (12.0-16.0) g/dL Hct (36.0-48.0) % MCV (80.0-105.0) fl MCH (25.0-35.0) pg MCHC (31.0-37.0) g/dl RDW (11.5-14.5) % Plt Count (120.0-450.0) 10^3/uL MPV (7.0-11.0) fl Gran % (50.0-68.0) % Lymph % (Auto) (22.0-35.0) % Mills % (Auto) (1.0-6.0) % Eos % (Auto) (1.5-5.0) % Baso % (Auto) (0.0-3.0) % Gran # (1.4-6.5) Lymph # (Auto) (1.2-3.4) Mills # (Auto) (0.1-0.6) Eos # (Auto) (0.0-0.7) Baso # (Auto) (0.0-2.0) K/mm3 Neutrophils % (Manual) (50.0-70.0) % Band Neutrophils % (0-2) % Lymphocytes % (Manual) (22.0-35.0) % Monocytes % (Manual) (1.0-6.0) % Platelet Evaluation (NORMAL) PT (9.4-12.5) SECONDS INR APTT (25.1-36.5) Seconds pO2 (30-55) mm/Hg VBG pH (7.32-7.43) VBG pCO2 (40-60) VBG HCO3 (21-28) mmol/l VBG Total CO2 (22-28) mmol.L VBG O2 Sat (Calc) (40-65) % VBG Base Excess (0.0-2.0) mmol/L VBG Potassium (3.6-5.2) mmol/L Sodium (132-148) mmol/L Chloride (98-107) mmol/L Glucose (65-105) mg/dl Lactate (0.7-2.1) mmol/L FiO2 % Potassium (3.6-5.0) mmol/L Carbon Dioxide (21-33) mmol/L Anion Gap (10-20) BUN (7-21) mg/dL Creatinine (0.7-1.2) mg/dl Est GFR ( Amer) Est GFR (Non-Af Amer) POC Glucose (mg/dL) 58 L 78 72 (65-110) mg/dL Random Glucose (70-110) mg/dL Calcium (8.4-10.5) mg/dL Phosphorus (2.5-4.5) mg/dL Magnesium (1.7-2.2) mg/dL Total Bilirubin (0.2-1.3) mg/dL AST (14-36) U/L ALT (7-56) U/L Alkaline Phosphatase (38-126) U/L Total Protein (5.8-8.3) g/dL Albumin (3.0-4.8) g/dL Globulin gm/dL Albumin/Globulin Ratio (1.1-1.8) Venous Blood Potassium (3.6-5.2) mmol/L Urine Color (YELLOW) Urine Appearance (CLEAR) Urine pH (4.7-8.0) Ur Specific Dickens (1.005-1.035) Urine Protein (<30 mg/dL) mg/dL Urine Glucose (UA) (NEGATIVE) mg/dL Urine Ketones (NEGATIVE) mg/dL Urine Blood (NEGATIVE) Urine Nitrate (NEGATIVE) Urine Bilirubin (NEGATIVE) Urine Urobilinogen (<1 E.U./dL) E.U./dL Ur Leukocyte Esterase (NEGATIVE) Fifi/uL Urine RBC (0-2) /hpf Urine WBC (0-6) /hpf Ur Epithelial Cells (0-5) /hpf Urine Bacteria (NEG) 07/11/18 07/11/18 07/11/18 Range/Units 08:45 06:45 06:25 WBC 3.5 L (4.5-11.0) 10^3/uL RBC 3.64 (3.5-6.1) 10^6/uL Hgb 11.4 L (12.0-16.0) g/dL Hct 34.4 L (36.0-48.0) % MCV 94.5 D (80.0-105.0) fl MCH 31.3 (25.0-35.0) pg MCHC 33.1 (31.0-37.0) g/dl RDW 14.5 (11.5-14.5) % Plt Count 42 L* (120.0-450.0) 10^3/uL MPV 11.3 H (7.0-11.0) fl Gran % 93.4 H (50.0-68.0) % Lymph % (Auto) 4.9 L (22.0-35.0) % Mills % (Auto) 1.4 (1.0-6.0) % Eos % (Auto) 0.3 L (1.5-5.0) % Baso % (Auto) 0.0 (0.0-3.0) % Gran # 3.25 (1.4-6.5) Lymph # (Auto) 0.2 L (1.2-3.4) Mills # (Auto) 0.1 (0.1-0.6) Eos # (Auto) 0.0 (0.0-0.7) Baso # (Auto) 0.00 (0.0-2.0) K/mm3 Neutrophils % (Manual) 84 H (50.0-70.0) % Band Neutrophils % 10 H (0-2) % Lymphocytes % (Manual) 5 L (22.0-35.0) % Monocytes % (Manual) 1 (1.0-6.0) % Platelet Evaluation Low (NORMAL) PT (9.4-12.5) SECONDS INR APTT (25.1-36.5) Seconds pO2 85 H (30-55) mm/Hg VBG pH 7.18 L* (7.32-7.43) VBG pCO2 26.0 L (40-60) VBG HCO3 9.7 L (21-28) mmol/l VBG Total CO2 10.5 L (22-28) mmol.L VBG O2 Sat (Calc) 97.2 H (40-65) % VBG Base Excess -17.1 L (0.0-2.0) mmol/L VBG Potassium 3.2 L (3.6-5.2) mmol/L Sodium 141.0 (132-148) mmol/L Chloride 113.0 H (98-107) mmol/L Glucose 82 (65-105) mg/dl Lactate 9.9 H* (0.7-2.1) mmol/L FiO2 21.0 % Potassium (3.6-5.0) mmol/L Carbon Dioxide (21-33) mmol/L Anion Gap (10-20) BUN (7-21) mg/dL Creatinine (0.7-1.2) mg/dl Est GFR ( Amer) Est GFR (Non-Af Amer) POC Glucose (mg/dL) (65-110) mg/dL Random Glucose (70-110) mg/dL Calcium (8.4-10.5) mg/dL Phosphorus (2.5-4.5) mg/dL Magnesium (1.7-2.2) mg/dL Total Bilirubin (0.2-1.3) mg/dL AST (14-36) U/L ALT (7-56) U/L Alkaline Phosphatase (38-126) U/L Total Protein (5.8-8.3) g/dL Albumin (3.0-4.8) g/dL Globulin gm/dL Albumin/Globulin Ratio (1.1-1.8) Venous Blood Potassium 3.2 L (3.6-5.2) mmol/L Urine Color Light red (YELLOW) Urine Appearance Cloudy (CLEAR) Urine pH 6.5 (4.7-8.0) Ur Specific Dickens 1.015 (1.005-1.035) Urine Protein 30 H (<30 mg/dL) mg/dL Urine Glucose (UA) 500 H (NEGATIVE) mg/dL Urine Ketones Negative (NEGATIVE) mg/dL Urine Blood Large H (NEGATIVE) Urine Nitrate Positive H (NEGATIVE) Urine Bilirubin Negative (NEGATIVE) Urine Urobilinogen 0.2 (<1 E.U./dL) E.U./dL Ur Leukocyte Esterase Moderate H (NEGATIVE) Fifi/uL Urine RBC Tntc (0-2) /hpf Urine WBC 10 - 15 (0-6) /hpf Ur Epithelial Cells 0 - 2 (0-5) /hpf Urine Bacteria Small (NEG) 07/11/18 07/11/18 07/11/18 Range/Units 05:30 05:30 05:30 WBC (4.5-11.0) 10^3/uL RBC (3.5-6.1) 10^6/uL Hgb (12.0-16.0) g/dL Hct (36.0-48.0) % MCV (80.0-105.0) fl MCH (25.0-35.0) pg MCHC (31.0-37.0) g/dl RDW (11.5-14.5) % Plt Count (120.0-450.0) 10^3/uL MPV (7.0-11.0) fl Gran % (50.0-68.0) % Lymph % (Auto) (22.0-35.0) % Mills % (Auto) (1.0-6.0) % Eos % (Auto) (1.5-5.0) % Baso % (Auto) (0.0-3.0) % Gran # (1.4-6.5) Lymph # (Auto) (1.2-3.4) Mills # (Auto) (0.1-0.6) Eos # (Auto) (0.0-0.7) Baso # (Auto) (0.0-2.0) K/mm3 Neutrophils % (Manual) (50.0-70.0) % Band Neutrophils % (0-2) % Lymphocytes % (Manual) (22.0-35.0) % Monocytes % (Manual) (1.0-6.0) % Platelet Evaluation (NORMAL) PT 16.3 H (9.4-12.5) SECONDS INR 1.41 APTT 24.2 L (25.1-36.5) Seconds pO2 55 (30-55) mm/Hg VBG pH 7.21 L (7.32-7.43) VBG pCO2 24.0 L (40-60) VBG HCO3 9.6 L (21-28) mmol/l VBG Total CO2 10.3 L (22-28) mmol.L VBG O2 Sat (Calc) 90.2 H (40-65) % VBG Base Excess -16.5 L (0.0-2.0) mmol/L VBG Potassium 3.0 L (3.6-5.2) mmol/L Sodium 141 142.0 (132-148) mmol/L Chloride 117 H 113.0 H (98-107) mmol/L Glucose 121 H (65-105) mg/dl Lactate 9.8 H* (0.7-2.1) mmol/L FiO2 21.0 % Potassium 2.6 L* D (3.6-5.0) mmol/L Carbon Dioxide 10 L D (21-33) mmol/L Anion Gap 17 (10-20) BUN 9 (7-21) mg/dL Creatinine 1.1 (0.7-1.2) mg/dl Est GFR ( Amer) 59 Est GFR (Non-Af Amer) 49 POC Glucose (mg/dL) (65-110) mg/dL Random Glucose 121 H (70-110) mg/dL Calcium 7.5 L (8.4-10.5) mg/dL Phosphorus 1.3 L* (2.5-4.5) mg/dL Magnesium 1.5 L (1.7-2.2) mg/dL Total Bilirubin 0.7 (0.2-1.3) mg/dL AST 43 H (14-36) U/L ALT 25 (7-56) U/L Alkaline Phosphatase 145 H D (38-126) U/L Total Protein 5.5 L (5.8-8.3) g/dL Albumin 2.6 L (3.0-4.8) g/dL Globulin 2.9 gm/dL Albumin/Globulin Ratio 0.9 L (1.1-1.8) Venous Blood Potassium 3.0 L (3.6-5.2) mmol/L Urine Color (YELLOW) Urine Appearance (CLEAR) Urine pH (4.7-8.0) Ur Specific Dickens (1.005-1.035) Urine Protein (<30 mg/dL) mg/dL Urine Glucose (UA) (NEGATIVE) mg/dL Urine Ketones (NEGATIVE) mg/dL Urine Blood (NEGATIVE) Urine Nitrate (NEGATIVE) Urine Bilirubin (NEGATIVE) Urine Urobilinogen (<1 E.U./dL) E.U./dL Ur Leukocyte Esterase (NEGATIVE) Fifi/uL Urine RBC (0-2) /hpf Urine WBC (0-6) /hpf Ur Epithelial Cells (0-5) /hpf Urine Bacteria (NEG) Laboratory Results - last 24 hr 07/11/18 07/11/18 07/11/18 05:30 05:30 05:30 WBC RBC Hgb Hct MCV MCH MCHC RDW Plt Count MPV Gran % Lymph % (Auto) Mills % (Auto) Eos % (Auto) Baso % (Auto) Gran # Lymph # (Auto) Mills # (Auto) Eos # (Auto) Baso # (Auto) Neutrophils % (Manual) Band Neutrophils % Lymphocytes % (Manual) Monocytes % (Manual) Platelet Evaluation PT 16.3 H INR 1.41 APTT 24.2 L pO2 55 VBG pH 7.21 L VBG pCO2 24.0 L VBG HCO3 9.6 L VBG Total CO2 10.3 L VBG O2 Sat (Calc) 90.2 H VBG Base Excess -16.5 L VBG Potassium 3.0 L Sodium 142.0 141 Chloride 113.0 H 117 H Glucose 121 H Lactate 9.8 H* FiO2 21.0 Potassium 2.6 L* D Carbon Dioxide 10 L D Anion Gap 17 BUN 9 Creatinine 1.1 Est GFR ( Amer) 59 Est GFR (Non-Af Amer) 49 POC Glucose (mg/dL) Random Glucose 121 H Calcium 7.5 L Phosphorus 1.3 L* Magnesium 1.5 L Total Bilirubin 0.7 AST 43 H ALT 25 Alkaline Phosphatase 145 H D Total Protein 5.5 L Albumin 2.6 L Globulin 2.9 Albumin/Globulin Ratio 0.9 L Venous Blood Potassium 3.0 L Urine Color Urine Appearance Urine pH Ur Specific Dickens Urine Protein Urine Glucose (UA) Urine Ketones Urine Blood Urine Nitrate Urine Bilirubin Urine Urobilinogen Ur Leukocyte Esterase Urine RBC Urine WBC Ur Epithelial Cells Urine Bacteria 07/11/18 07/11/18 07/11/18 06:25 06:45 08:45 WBC 3.5 L RBC 3.64 Hgb 11.4 L Hct 34.4 L MCV 94.5 D MCH 31.3 MCHC 33.1 RDW 14.5 Plt Count 42 L* MPV 11.3 H Gran % 93.4 H Lymph % (Auto) 4.9 L Mills % (Auto) 1.4 Eos % (Auto) 0.3 L Baso % (Auto) 0.0 Gran # 3.25 Lymph # (Auto) 0.2 L Mills # (Auto) 0.1 Eos # (Auto) 0.0 Baso # (Auto) 0.00 Neutrophils % (Manual) 84 H Band Neutrophils % 10 H Lymphocytes % (Manual) 5 L Monocytes % (Manual) 1 Platelet Evaluation Low PT INR APTT pO2 85 H VBG pH 7.18 L* VBG pCO2 26.0 L VBG HCO3 9.7 L VBG Total CO2 10.5 L VBG O2 Sat (Calc) 97.2 H VBG Base Excess -17.1 L VBG Potassium 3.2 L Sodium 141.0 Chloride 113.0 H Glucose 82 Lactate 9.9 H* FiO2 21.0 Potassium Carbon Dioxide Anion Gap BUN Creatinine Est GFR ( Amer) Est GFR (Non-Af Amer) POC Glucose (mg/dL) Random Glucose Calcium Phosphorus Magnesium Total Bilirubin AST ALT Alkaline Phosphatase Total Protein Albumin Globulin Albumin/Globulin Ratio Venous Blood Potassium 3.2 L Urine Color Light red Urine Appearance Cloudy Urine pH 6.5 Ur Specific Dickens 1.015 Urine Protein 30 H Urine Glucose (UA) 500 H Urine Ketones Negative Urine Blood Large H Urine Nitrate Positive H Urine Bilirubin Negative Urine Urobilinogen 0.2 Ur Leukocyte Esterase Moderate H Urine RBC Tntc Urine WBC 10 - 15 Ur Epithelial Cells 0 - 2 Urine Bacteria Small 07/11/18 07/11/18 07/11/18 09:24 11:14 16:19 WBC RBC Hgb Hct MCV MCH MCHC RDW Plt Count MPV Gran % Lymph % (Auto) Mills % (Auto) Eos % (Auto) Baso % (Auto) Gran # Lymph # (Auto) Mills # (Auto) Eos # (Auto) Baso # (Auto) Neutrophils % (Manual) Band Neutrophils % Lymphocytes % (Manual) Monocytes % (Manual) Platelet Evaluation PT INR APTT pO2 VBG pH VBG pCO2 VBG HCO3 VBG Total CO2 VBG O2 Sat (Calc) VBG Base Excess VBG Potassium Sodium Chloride Glucose Lactate FiO2 Potassium Carbon Dioxide Anion Gap BUN Creatinine Est GFR ( Amer) Est GFR (Non-Af Amer) POC Glucose (mg/dL) 72 78 58 L Random Glucose Calcium Phosphorus Magnesium Total Bilirubin AST ALT Alkaline Phosphatase Total Protein Albumin Globulin Albumin/Globulin Ratio Venous Blood Potassium Urine Color Urine Appearance Urine pH Ur Specific Dickens Urine Protein Urine Glucose (UA) Urine Ketones Urine Blood Urine Nitrate Urine Bilirubin Urine Urobilinogen Ur Leukocyte Esterase Urine RBC Urine WBC Ur Epithelial Cells Urine Bacteria 07/11/18 07/11/18 07/11/18 16:33 16:33 17:19 WBC RBC Hgb Hct MCV MCH MCHC RDW Plt Count MPV Gran % Lymph % (Auto) Mills % (Auto) Eos % (Auto) Baso % (Auto) Gran # Lymph # (Auto) Mills # (Auto) Eos # (Auto) Baso # (Auto) Neutrophils % (Manual) Band Neutrophils % Lymphocytes % (Manual) Monocytes % (Manual) Platelet Evaluation PT INR APTT pO2 190 H VBG pH 7.22 L VBG pCO2 21.0 L VBG HCO3 8.6 L VBG Total CO2 9.2 L VBG O2 Sat (Calc) 99.6 H VBG Base Excess -17.1 L VBG Potassium 3.1 L Sodium 141.0 140 Chloride 114.0 H 118 H Glucose 55 L Lactate 8.7 H* FiO2 21.0 Potassium 3.2 L Carbon Dioxide 9 L Anion Gap 17 BUN 10 Creatinine 1.2 Est GFR ( Amer) 54 Est GFR (Non-Af Amer) 44 POC Glucose (mg/dL) 112 H Random Glucose 54 L Calcium 7.0 L Phosphorus 2.6 Magnesium 1.6 L Total Bilirubin 0.9 AST 37 H ALT 33 Alkaline Phosphatase 102 Total Protein 4.5 L Albumin 2.0 L Globulin 2.5 Albumin/Globulin Ratio 0.8 L Venous Blood Potassium 3.1 L Urine Color Urine Appearance Urine pH Ur Specific Dickens Urine Protein Urine Glucose (UA) Urine Ketones Urine Blood Urine Nitrate Urine Bilirubin Urine Urobilinogen Ur Leukocyte Esterase Urine RBC Urine WBC Ur Epithelial Cells Urine Bacteria 07/11/18 07/11/18 07/12/18 21:08 22:37 01:43 WBC RBC Hgb Hct MCV MCH MCHC RDW Plt Count MPV Gran % Lymph % (Auto) Mills % (Auto) Eos % (Auto) Baso % (Auto) Gran # Lymph # (Auto) Mills # (Auto) Eos # (Auto) Baso # (Auto) Neutrophils % (Manual) Band Neutrophils % Lymphocytes % (Manual) Monocytes % (Manual) Platelet Evaluation PT INR APTT pO2 50 49 VBG pH 7.25 L 7.30 L VBG pCO2 20.0 L 19.0 L* VBG HCO3 8.8 L 9.3 L VBG Total CO2 9.4 L 9.9 L VBG O2 Sat (Calc) 90.0 H 89.1 H VBG Base Excess -16.3 L -14.7 L VBG Potassium 4.4 3.9 Sodium 139.0 140.0 Chloride 113.0 H 113.0 H Glucose 196 H 154 H Lactate 7.8 H* 6.6 H* FiO2 21.0 21.0 Potassium Carbon Dioxide Anion Gap BUN Creatinine Est GFR ( Amer) Est GFR (Non-Af Amer) POC Glucose (mg/dL) 205 H Random Glucose Calcium Phosphorus Magnesium Total Bilirubin AST ALT Alkaline Phosphatase Total Protein Albumin Globulin Albumin/Globulin Ratio Venous Blood Potassium 4.4 3.9 Urine Color Urine Appearance Urine pH Ur Specific Dickens Urine Protein Urine Glucose (UA) Urine Ketones Urine Blood Urine Nitrate Urine Bilirubin Urine Urobilinogen Ur Leukocyte Esterase Urine RBC Urine WBC Ur Epithelial Cells Urine Bacteria EKG/Cardiology Studies: Cardiology / EKG Studies 07/11/18 05:44 ELECTROCARDIOGRAM Stat Comment: Reason For Exam: Sepsis Patient Critical Care Progress Note - Nutrition Nutrition: Nutrition Category Date Time Status Diabetic [Consistent Carbohydrate] [DIET] Diets 07/11/18 Dinner Ordered
--- NOTE | 2018-07-12 07:08 | CP.CCUPN ---
<Beau Castellanos - Last Filed: 07/12/18 08:07> CCU Subjective - Physician Review Subjective (Free Text): CRITICAL CARE PROGRESS NOTE FOR DR. ANTHONY Castellanos PGY-1 Pt seen and examined at bedside this am. Overnight, CT head was ordered as daughter reported prior history of subdural hematoma, change in mental status and possible fall earlier in day, as per pt's , who has alzheimer's. Radiology called to inform about frontal 1.5 cm subarachnoid hemorrhage found from CT head. Findings discussed with patients daughter. Neurology and neurosurgery contacted for further recommendations. Per neurosurgery, no surgical intervention needed at this time as this is not likely due to aneurysm since location is in frontal lobe and therefore superficial; recommends management for now with neurology. Will monitor pressure, make sure it's not above 140/80, hob >35 degrees, seizure precautions, fall precautions, swallow eval, PT/OT, SCDs, will d/c anticoagulation. She is currently on 10mcg norepinephrine and 0.03 ml/hr vasopressin. She is still confused, however responds to commands. 12 point ROS is unattainable d/t patients mental status. CCU Objective - Vital Signs / Intake & Output Vital Signs (Last 4 hours): Vital Signs Pulse Resp BP Pulse Ox 07/12/18 03:15 107 H 30 H 91/41 L 92 L 07/12/18 03:10 105 H 31 H 98 07/12/18 03:00 112 H 36 H 95/78 L 88 L Intake and Output (Last 8hrs): Intake & Output 07/11/18 07/11/18 07/12/18 14:59 22:59 06:59 Intake Total 1658 Output Total 750 Balance 908 Intake: IV 1558 Right Antecubital 1058 Oral 100 Output: Urine 750 Urethral (Zendejas) 750 Other: # Bowel Movements 2 - Physical Exam Head: Positive for: Atraumatic, Normocephalic Pupils: Positive for: PERRL Extroacular Muscles: Positive for: EOMI Conjunctiva: Positive for: Normal Mouth: Positive for: Moist Mucous Membranes Neck: Positive for: Normal Range of Motion Respiratory/Chest: Positive for: Clear to Auscultation, Good Air Exchange. Negative for: Respiratory Distress, Accessory Muscle Use Cardiovascular: Positive for: Regular Rate and Rhythm, Normal S1, S2. Negative for: Murmurs Abdomen: Negative for: Tenderness, Distention, Peritoneal Signs Back: Positive for: Normal Inspection Upper Extremity: Positive for: Normal Inspection. Negative for: Cyanosis, Edema Lower Extremity: Positive for: Swelling (Swelling to ankles bilaterally). Negative for: Edema Neurological: Positive for: GCS=15, CN II-XII Intact, Speech Normal Skin: Positive for: Dry, Normal Color, Hot (to touch). Negative for: Rashes Psychiatric: Positive for: Alert, Oriented x 3, Normal Insight, Normal Concentration - Medications Active Medications: Active Medications Generic Name Dose Route Start Last Admin Trade Name Freq PRN Reason Stop Dose Admin Meropenem 1 gm in 50 mls @ 100 mls/hr 07/11/18 10:30 07/11/18 22:08 Merrem Iv 1 Gm Premix IVPB 100 mls/hr Q12 AGNES Administration Protocol Acetaminophen 1,000 mg in 100 mls @ 400 mls/hr 07/11/18 11:04 Ofirmev IVPB 07/13/18 11:05 Q6H PRN Temperature NOREPINEPHRINE BIT/0.9 % NACL 4 mg in 250 mls @ 15 mls/hr 07/11/18 11:47 07/11/18 22:00 Levophed 4 Mg/ 250 Ml Ns Premixed IV Infused .[id number] PRN Titration TITRATE PER MD ORDER Protocol 4 MCG/MIN Vasopressin 20 units/ Sodium 101 mls @ 9.09 mls/hr 07/11/18 13:15 07/12/18 00:00 Chloride IV 9.09 mls/hr .[id number] AGNES Administration Protocol 0.03 U/MIN Lactated Ringer's 500 mls @ 0 mls/hr 07/11/18 14:26 Lactated Ringer's IV .Q0M AGNES Per Protocol Ondansetron HCl 4 mg 07/12/18 06:07 07/12/18 06:20 Zofran Inj IVP 4 mg Q6H PRN Administration Nausea/Vomiting Pantoprazole Sodium 40 mg 07/11/18 16:00 07/11/18 17:17 Protonix Inj IVP 40 mg DAILY AGNES Administration - Patient Studies Lab Studies: Microbiology Studies 07/11/18 05:30 Blood Culture - Preliminary Blood Gram Negative Daniele Gram Stain - Final 07/11/18 05:30 Blood Culture - Preliminary Blood Gram Negative Daniele Gram Stain - Final Lab Studies 07/12/18 07/11/18 07/11/18 Range/Units 01:43 22:37 21:08 WBC (4.5-11.0) 10^3/uL RBC (3.5-6.1) 10^6/uL Hgb (12.0-16.0) g/dL Hct (36.0-48.0) % MCV (80.0-105.0) fl MCH (25.0-35.0) pg MCHC (31.0-37.0) g/dl RDW (11.5-14.5) % Plt Count (120.0-450.0) 10^3/uL MPV (7.0-11.0) fl Gran % (50.0-68.0) % Lymph % (Auto) (22.0-35.0) % [place] % (Auto) (1.0-6.0) % Eos % (Auto) (1.5-5.0) % Baso % (Auto) (0.0-3.0) % Gran # (1.4-6.5) Lymph # (Auto) (1.2-3.4) [place] # (Auto) (0.1-0.6) Eos # (Auto) (0.0-0.7) Baso # (Auto) (0.0-2.0) K/mm3 Neutrophils % (Manual) (50.0-70.0) % Band Neutrophils % (0-2) % Lymphocytes % (Manual) (22.0-35.0) % Monocytes % (Manual) (1.0-6.0) % Platelet Evaluation (NORMAL) pO2 49 50 (30-55) mm/Hg VBG pH 7.30 L 7.25 L (7.32-7.43) VBG pCO2 19.0 L* 20.0 L (40-60) VBG HCO3 9.3 L 8.8 L (21-28) mmol/l VBG Total CO2 9.9 L 9.4 L (22-28) mmol.L VBG O2 Sat (Calc) 89.1 H 90.0 H (40-65) % VBG Base Excess -14.7 L -16.3 L (0.0-2.0) mmol/L VBG Potassium 3.9 4.4 (3.6-5.2) mmol/L Sodium 140.0 139.0 (132-148) mmol/L Chloride 113.0 H 113.0 H (98-107) mmol/L Glucose 154 H 196 H (65-105) mg/dl Lactate 6.6 H* 7.8 H* (0.7-2.1) mmol/L FiO2 21.0 21.0 % Potassium (3.6-5.0) mmol/L Carbon Dioxide (21-33) mmol/L Anion Gap (10-20) BUN (7-21) mg/dL Creatinine (0.7-1.2) mg/dl Est GFR ( Amer) Est GFR (Non-Af Amer) POC Glucose (mg/dL) 205 H (65-110) mg/dL Random Glucose (70-110) mg/dL Calcium (8.4-10.5) mg/dL Phosphorus (2.5-4.5) mg/dL Magnesium (1.7-2.2) mg/dL Total Bilirubin (0.2-1.3) mg/dL AST (14-36) U/L ALT (7-56) U/L Alkaline Phosphatase (38-126) U/L Total Protein (5.8-8.3) g/dL Albumin (3.0-4.8) g/dL Globulin gm/dL Albumin/Globulin Ratio (1.1-1.8) Venous Blood Potassium 3.9 4.4 (3.6-5.2) mmol/L Urine Color (YELLOW) Urine Appearance (CLEAR) Urine pH (4.7-8.0) Ur Specific [place] (1.005-1.035) Urine Protein (<30 mg/dL) mg/dL Urine Glucose (UA) (NEGATIVE) mg/dL Urine Ketones (NEGATIVE) mg/dL Urine Blood (NEGATIVE) Urine Nitrate (NEGATIVE) Urine Bilirubin (NEGATIVE) Urine Urobilinogen (<1 E.U./dL) E.U./dL Ur Leukocyte Esterase (NEGATIVE) Fifi/uL Urine RBC (0-2) /hpf Urine WBC (0-6) /hpf Ur Epithelial Cells (0-5) /hpf Urine Bacteria (NEG) 07/11/18 07/11/18 07/11/18 Range/Units 17:19 16:33 16:33 WBC (4.5-11.0) 10^3/uL RBC (3.5-6.1) 10^6/uL Hgb (12.0-16.0) g/dL Hct (36.0-48.0) % MCV (80.0-105.0) fl MCH (25.0-35.0) pg MCHC (31.0-37.0) g/dl RDW (11.5-14.5) % Plt Count (120.0-450.0) 10^3/uL MPV (7.0-11.0) fl Gran % (50.0-68.0) % Lymph % (Auto) (22.0-35.0) % [place] % (Auto) (1.0-6.0) % Eos % (Auto) (1.5-5.0) % Baso % (Auto) (0.0-3.0) % Gran # (1.4-6.5) Lymph # (Auto) (1.2-3.4) [place] # (Auto) (0.1-0.6) Eos # (Auto) (0.0-0.7) Baso # (Auto) (0.0-2.0) K/mm3 Neutrophils % (Manual) (50.0-70.0) % Band Neutrophils % (0-2) % Lymphocytes % (Manual) (22.0-35.0) % Monocytes % (Manual) (1.0-6.0) % Platelet Evaluation (NORMAL) pO2 190 H (30-55) mm/Hg VBG pH 7.22 L (7.32-7.43) VBG pCO2 21.0 L (40-60) VBG HCO3 8.6 L (21-28) mmol/l VBG Total CO2 9.2 L (22-28) mmol.L VBG O2 Sat (Calc) 99.6 H (40-65) % VBG Base Excess -17.1 L (0.0-2.0) mmol/L VBG Potassium 3.1 L (3.6-5.2) mmol/L Sodium 140 141.0 (132-148) mmol/L Chloride 118 H 114.0 H (98-107) mmol/L Glucose 55 L (65-105) mg/dl Lactate 8.7 H* (0.7-2.1) mmol/L FiO2 21.0 % Potassium 3.2 L (3.6-5.0) mmol/L Carbon Dioxide 9 L (21-33) mmol/L Anion Gap 17 (10-20) BUN 10 (7-21) mg/dL Creatinine 1.2 (0.7-1.2) mg/dl Est GFR ( Amer) 54 Est GFR (Non-Af Amer) 44 POC Glucose (mg/dL) 112 H (65-110) mg/dL Random Glucose 54 L (70-110) mg/dL Calcium 7.0 L (8.4-10.5) mg/dL Phosphorus 2.6 (2.5-4.5) mg/dL Magnesium 1.6 L (1.7-2.2) mg/dL Total Bilirubin 0.9 (0.2-1.3) mg/dL AST 37 H (14-36) U/L ALT 33 (7-56) U/L Alkaline Phosphatase 102 (38-126) U/L Total Protein 4.5 L (5.8-8.3) g/dL Albumin 2.0 L (3.0-4.8) g/dL Globulin 2.5 gm/dL Albumin/Globulin Ratio 0.8 L (1.1-1.8) Venous Blood Potassium 3.1 L (3.6-5.2) mmol/L Urine Color (YELLOW) Urine Appearance (CLEAR) Urine pH (4.7-8.0) Ur Specific [place] (1.005-1.035) Urine Protein (<30 mg/dL) mg/dL Urine Glucose (UA) (NEGATIVE) mg/dL Urine Ketones (NEGATIVE) mg/dL Urine Blood (NEGATIVE) Urine Nitrate (NEGATIVE) Urine Bilirubin (NEGATIVE) Urine Urobilinogen (<1 E.U./dL) E.U./dL Ur Leukocyte Esterase (NEGATIVE) Fifi/uL Urine RBC (0-2) /hpf Urine WBC (0-6) /hpf Ur Epithelial Cells (0-5) /hpf Urine Bacteria (NEG) 07/11/18 07/11/18 07/11/18 Range/Units 16:19 11:14 09:24 WBC (4.5-11.0) 10^3/uL RBC (3.5-6.1) 10^6/uL Hgb (12.0-16.0) g/dL Hct (36.0-48.0) % MCV (80.0-105.0) fl MCH (25.0-35.0) pg MCHC (31.0-37.0) g/dl RDW (11.5-14.5) % Plt Count (120.0-450.0) 10^3/uL MPV (7.0-11.0) fl Gran % (50.0-68.0) % Lymph % (Auto) (22.0-35.0) % [place] % (Auto) (1.0-6.0) % Eos % (Auto) (1.5-5.0) % Baso % (Auto) (0.0-3.0) % Gran # (1.4-6.5) Lymph # (Auto) (1.2-3.4) [place] # (Auto) (0.1-0.6) Eos # (Auto) (0.0-0.7) Baso # (Auto) (0.0-2.0) K/mm3 Neutrophils % (Manual) (50.0-70.0) % Band Neutrophils % (0-2) % Lymphocytes % (Manual) (22.0-35.0) % Monocytes % (Manual) (1.0-6.0) % Platelet Evaluation (NORMAL) pO2 (30-55) mm/Hg VBG pH (7.32-7.43) VBG pCO2 (40-60) VBG HCO3 (21-28) mmol/l VBG Total CO2 (22-28) mmol.L VBG O2 Sat (Calc) (40-65) % VBG Base Excess (0.0-2.0) mmol/L VBG Potassium (3.6-5.2) mmol/L Sodium (132-148) mmol/L Chloride (98-107) mmol/L Glucose (65-105) mg/dl Lactate (0.7-2.1) mmol/L FiO2 % Potassium (3.6-5.0) mmol/L Carbon Dioxide (21-33) mmol/L Anion Gap (10-20) BUN (7-21) mg/dL Creatinine (0.7-1.2) mg/dl Est GFR ( Amer) Est GFR (Non-Af Amer) POC Glucose (mg/dL) 58 L 78 72 (65-110) mg/dL Random Glucose (70-110) mg/dL Calcium (8.4-10.5) mg/dL Phosphorus (2.5-4.5) mg/dL Magnesium (1.7-2.2) mg/dL Total Bilirubin (0.2-1.3) mg/dL AST (14-36) U/L ALT (7-56) U/L Alkaline Phosphatase (38-126) U/L Total Protein (5.8-8.3) g/dL Albumin (3.0-4.8) g/dL Globulin gm/dL Albumin/Globulin Ratio (1.1-1.8) Venous Blood Potassium (3.6-5.2) mmol/L Urine Color (YELLOW) Urine Appearance (CLEAR) Urine pH (4.7-8.0) Ur Specific [place] (1.005-1.035) Urine Protein (<30 mg/dL) mg/dL Urine Glucose (UA) (NEGATIVE) mg/dL Urine Ketones (NEGATIVE) mg/dL Urine Blood (NEGATIVE) Urine Nitrate (NEGATIVE) Urine Bilirubin (NEGATIVE) Urine Urobilinogen (<1 E.U./dL) E.U./dL Ur Leukocyte Esterase (NEGATIVE) Fifi/uL Urine RBC (0-2) /hpf Urine WBC (0-6) /hpf Ur Epithelial Cells (0-5) /hpf Urine Bacteria (NEG) 07/11/18 07/11/18 07/11/18 Range/Units 08:45 06:45 06:25 WBC 3.5 L (4.5-11.0) 10^3/uL RBC 3.64 (3.5-6.1) 10^6/uL Hgb 11.4 L (12.0-16.0) g/dL Hct 34.4 L (36.0-48.0) % MCV 94.5 D (80.0-105.0) fl MCH 31.3 (25.0-35.0) pg MCHC 33.1 (31.0-37.0) g/dl RDW 14.5 (11.5-14.5) % Plt Count 42 L* (120.0-450.0) 10^3/uL MPV 11.3 H (7.0-11.0) fl Gran % 93.4 H (50.0-68.0) % Lymph % (Auto) 4.9 L (22.0-35.0) % [place] % (Auto) 1.4 (1.0-6.0) % Eos % (Auto) 0.3 L (1.5-5.0) % Baso % (Auto) 0.0 (0.0-3.0) % Gran # 3.25 (1.4-6.5) Lymph # (Auto) 0.2 L (1.2-3.4) [place] # (Auto) 0.1 (0.1-0.6) Eos # (Auto) 0.0 (0.0-0.7) Baso # (Auto) 0.00 (0.0-2.0) K/mm3 Neutrophils % (Manual) 84 H (50.0-70.0) % Band Neutrophils % 10 H (0-2) % Lymphocytes % (Manual) 5 L (22.0-35.0) % Monocytes % (Manual) 1 (1.0-6.0) % Platelet Evaluation Low (NORMAL) pO2 85 H (30-55) mm/Hg VBG pH 7.18 L* (7.32-7.43) VBG pCO2 26.0 L (40-60) VBG HCO3 9.7 L (21-28) mmol/l VBG Total CO2 10.5 L (22-28) mmol.L VBG O2 Sat (Calc) 97.2 H (40-65) % VBG Base Excess -17.1 L (0.0-2.0) mmol/L VBG Potassium 3.2 L (3.6-5.2) mmol/L Sodium 141.0 (132-148) mmol/L Chloride 113.0 H (98-107) mmol/L Glucose 82 (65-105) mg/dl Lactate 9.9 H* (0.7-2.1) mmol/L FiO2 21.0 % Potassium (3.6-5.0) mmol/L Carbon Dioxide (21-33) mmol/L Anion Gap (10-20) BUN (7-21) mg/dL Creatinine (0.7-1.2) mg/dl Est GFR ( Amer) Est GFR (Non-Af Amer) POC Glucose (mg/dL) (65-110) mg/dL Random Glucose (70-110) mg/dL Calcium (8.4-10.5) mg/dL Phosphorus (2.5-4.5) mg/dL Magnesium (1.7-2.2) mg/dL Total Bilirubin (0.2-1.3) mg/dL AST (14-36) U/L ALT (7-56) U/L Alkaline Phosphatase (38-126) U/L Total Protein (5.8-8.3) g/dL Albumin (3.0-4.8) g/dL Globulin gm/dL Albumin/Globulin Ratio (1.1-1.8) Venous Blood Potassium 3.2 L (3.6-5.2) mmol/L Urine Color Light red (YELLOW) Urine Appearance Cloudy (CLEAR) Urine pH 6.5 (4.7-8.0) Ur Specific [place] 1.015 (1.005-1.035) Urine Protein 30 H (<30 mg/dL) mg/dL Urine Glucose (UA) 500 H (NEGATIVE) mg/dL Urine Ketones Negative (NEGATIVE) mg/dL Urine Blood Large H (NEGATIVE) Urine Nitrate Positive H (NEGATIVE) Urine Bilirubin Negative (NEGATIVE) Urine Urobilinogen 0.2 (<1 E.U./dL) E.U./dL Ur Leukocyte Esterase Moderate H (NEGATIVE) Fifi/uL Urine RBC Tntc (0-2) /hpf Urine WBC 10 - 15 (0-6) /hpf Ur Epithelial Cells 0 - 2 (0-5) /hpf Urine Bacteria Small (NEG) 07/11/18 Range/Units 05:30 WBC (4.5-11.0) 10^3/uL RBC (3.5-6.1) 10^6/uL Hgb (12.0-16.0) g/dL Hct (36.0-48.0) % MCV (80.0-105.0) fl MCH (25.0-35.0) pg MCHC (31.0-37.0) g/dl RDW (11.5-14.5) % Plt Count (120.0-450.0) 10^3/uL MPV (7.0-11.0) fl Gran % (50.0-68.0) % Lymph % (Auto) (22.0-35.0) % [place] % (Auto) (1.0-6.0) % Eos % (Auto) (1.5-5.0) % Baso % (Auto) (0.0-3.0) % Gran # (1.4-6.5) Lymph # (Auto) (1.2-3.4) [place] # (Auto) (0.1-0.6) Eos # (Auto) (0.0-0.7) Baso # (Auto) (0.0-2.0) K/mm3 Neutrophils % (Manual) (50.0-70.0) % Band Neutrophils % (0-2) % Lymphocytes % (Manual) (22.0-35.0) % Monocytes % (Manual) (1.0-6.0) % Platelet Evaluation (NORMAL) pO2 55 (30-55) mm/Hg VBG pH 7.21 L (7.32-7.43) VBG pCO2 24.0 L (40-60) VBG HCO3 9.6 L (21-28) mmol/l VBG Total CO2 10.3 L (22-28) mmol.L VBG O2 Sat (Calc) 90.2 H (40-65) % VBG Base Excess -16.5 L (0.0-2.0) mmol/L VBG Potassium 3.0 L (3.6-5.2) mmol/L Sodium 142.0 (132-148) mmol/L Chloride 113.0 H (98-107) mmol/L Glucose 121 H (65-105) mg/dl Lactate 9.8 H* (0.7-2.1) mmol/L FiO2 21.0 % Potassium (3.6-5.0) mmol/L Carbon Dioxide (21-33) mmol/L Anion Gap (10-20) BUN (7-21) mg/dL Creatinine (0.7-1.2) mg/dl Est GFR ( Amer) Est GFR (Non-Af Amer) POC Glucose (mg/dL) (65-110) mg/dL Random Glucose (70-110) mg/dL Calcium (8.4-10.5) mg/dL Phosphorus (2.5-4.5) mg/dL Magnesium (1.7-2.2) mg/dL Total Bilirubin (0.2-1.3) mg/dL AST (14-36) U/L ALT (7-56) U/L Alkaline Phosphatase (38-126) U/L Total Protein (5.8-8.3) g/dL Albumin (3.0-4.8) g/dL Globulin gm/dL Albumin/Globulin Ratio (1.1-1.8) Venous Blood Potassium 3.0 L (3.6-5.2) mmol/L Urine Color (YELLOW) Urine Appearance (CLEAR) Urine pH (4.7-8.0) Ur Specific [place] (1.005-1.035) Urine Protein (<30 mg/dL) mg/dL Urine Glucose (UA) (NEGATIVE) mg/dL Urine Ketones (NEGATIVE) mg/dL Urine Blood (NEGATIVE) Urine Nitrate (NEGATIVE) Urine Bilirubin (NEGATIVE) Urine Urobilinogen (<1 E.U./dL) E.U./dL Ur Leukocyte Esterase (NEGATIVE) Fifi/uL Urine RBC (0-2) /hpf Urine WBC (0-6) /hpf Ur Epithelial Cells (0-5) /hpf Urine Bacteria (NEG) Laboratory Results - last 24 hr 07/11/18 07/11/18 07/11/18 05:30 06:25 06:45 WBC 3.5 L RBC 3.64 Hgb 11.4 L Hct 34.4 L MCV 94.5 D MCH 31.3 MCHC 33.1 RDW 14.5 Plt Count 42 L* MPV 11.3 H Gran % 93.4 H Lymph % (Auto) 4.9 L [place] % (Auto) 1.4 Eos % (Auto) 0.3 L Baso % (Auto) 0.0 Gran # 3.25 Lymph # (Auto) 0.2 L [place] # (Auto) 0.1 Eos # (Auto) 0.0 Baso # (Auto) 0.00 Neutrophils % (Manual) 84 H Band Neutrophils % 10 H Lymphocytes % (Manual) 5 L Monocytes % (Manual) 1 Platelet Evaluation Low pO2 55 VBG pH 7.21 L VBG pCO2 24.0 L VBG HCO3 9.6 L VBG Total CO2 10.3 L VBG O2 Sat (Calc) 90.2 H VBG Base Excess -16.5 L VBG Potassium 3.0 L Sodium 142.0 Chloride 113.0 H Glucose 121 H Lactate 9.8 H* FiO2 21.0 Potassium Carbon Dioxide Anion Gap BUN Creatinine Est GFR ( Amer) Est GFR (Non-Af Amer) POC Glucose (mg/dL) Random Glucose Calcium Phosphorus Magnesium Total Bilirubin AST ALT Alkaline Phosphatase Total Protein Albumin Globulin Albumin/Globulin Ratio Venous Blood Potassium 3.0 L Urine Color Light red Urine Appearance Cloudy Urine pH 6.5 Ur Specific [place] 1.015 Urine Protein 30 H Urine Glucose (UA) 500 H Urine Ketones Negative Urine Blood Large H Urine Nitrate Positive H Urine Bilirubin Negative Urine Urobilinogen 0.2 Ur Leukocyte Esterase Moderate H Urine RBC Tntc Urine WBC 10 - 15 Ur Epithelial Cells 0 - 2 Urine Bacteria Small 07/11/18 07/11/18 07/11/18 08:45 09:24 11:14 WBC RBC Hgb Hct MCV MCH MCHC RDW Plt Count MPV Gran % Lymph % (Auto) [place] % (Auto) Eos % (Auto) Baso % (Auto) Gran # Lymph # (Auto) [place] # (Auto) Eos # (Auto) Baso # (Auto) Neutrophils % (Manual) Band Neutrophils % Lymphocytes % (Manual) Monocytes % (Manual) Platelet Evaluation pO2 85 H VBG pH 7.18 L* VBG pCO2 26.0 L VBG HCO3 9.7 L VBG Total CO2 10.5 L VBG O2 Sat (Calc) 97.2 H VBG Base Excess -17.1 L VBG Potassium 3.2 L Sodium 141.0 Chloride 113.0 H Glucose 82 Lactate 9.9 H* FiO2 21.0 Potassium Carbon Dioxide Anion Gap BUN Creatinine Est GFR ( Amer) Est GFR (Non-Af Amer) POC Glucose (mg/dL) 72 78 Random Glucose Calcium Phosphorus Magnesium Total Bilirubin AST ALT Alkaline Phosphatase Total Protein Albumin Globulin Albumin/Globulin Ratio Venous Blood Potassium 3.2 L Urine Color Urine Appearance Urine pH Ur Specific [place] Urine Protein Urine Glucose (UA) Urine Ketones Urine Blood Urine Nitrate Urine Bilirubin Urine Urobilinogen Ur Leukocyte Esterase Urine RBC Urine WBC Ur Epithelial Cells Urine Bacteria 07/11/18 07/11/18 07/11/18 16:19 16:33 16:33 WBC RBC Hgb Hct MCV MCH MCHC RDW Plt Count MPV Gran % Lymph % (Auto) [place] % (Auto) Eos % (Auto) Baso % (Auto) Gran # Lymph # (Auto) [place] # (Auto) Eos # (Auto) Baso # (Auto) Neutrophils % (Manual) Band Neutrophils % Lymphocytes % (Manual) Monocytes % (Manual) Platelet Evaluation pO2 190 H VBG pH 7.22 L VBG pCO2 21.0 L VBG HCO3 8.6 L VBG Total CO2 9.2 L VBG O2 Sat (Calc) 99.6 H VBG Base Excess -17.1 L VBG Potassium 3.1 L Sodium 141.0 140 Chloride 114.0 H 118 H Glucose 55 L Lactate 8.7 H* FiO2 21.0 Potassium 3.2 L Carbon Dioxide 9 L Anion Gap 17 BUN 10 Creatinine 1.2 Est GFR ( Amer) 54 Est GFR (Non-Af Amer) 44 POC Glucose (mg/dL) 58 L Random Glucose 54 L Calcium 7.0 L Phosphorus 2.6 Magnesium 1.6 L Total Bilirubin 0.9 AST 37 H ALT 33 Alkaline Phosphatase 102 Total Protein 4.5 L Albumin 2.0 L Globulin 2.5 Albumin/Globulin Ratio 0.8 L Venous Blood Potassium 3.1 L Urine Color Urine Appearance Urine pH Ur Specific [place] Urine Protein Urine Glucose (UA) Urine Ketones Urine Blood Urine Nitrate Urine Bilirubin Urine Urobilinogen Ur Leukocyte Esterase Urine RBC Urine WBC Ur Epithelial Cells Urine Bacteria 07/11/18 07/11/18 07/11/18 17:19 21:08 22:37 WBC RBC Hgb Hct MCV MCH MCHC RDW Plt Count MPV Gran % Lymph % (Auto) [place] % (Auto) Eos % (Auto) Baso % (Auto) Gran # Lymph # (Auto) [place] # (Auto) Eos # (Auto) Baso # (Auto) Neutrophils % (Manual) Band Neutrophils % Lymphocytes % (Manual) Monocytes % (Manual) Platelet Evaluation pO2 50 VBG pH 7.25 L VBG pCO2 20.0 L VBG HCO3 8.8 L VBG Total CO2 9.4 L VBG O2 Sat (Calc) 90.0 H VBG Base Excess -16.3 L VBG Potassium 4.4 Sodium 139.0 Chloride 113.0 H Glucose 196 H Lactate 7.8 H* FiO2 21.0 Potassium Carbon Dioxide Anion Gap BUN Creatinine Est GFR ( Amer) Est GFR (Non-Af Amer) POC Glucose (mg/dL) 112 H 205 H Random Glucose Calcium Phosphorus Magnesium Total Bilirubin AST ALT Alkaline Phosphatase Total Protein Albumin Globulin Albumin/Globulin Ratio Venous Blood Potassium 4.4 Urine Color Urine Appearance Urine pH Ur Specific [place] Urine Protein Urine Glucose (UA) Urine Ketones Urine Blood Urine Nitrate Urine Bilirubin Urine Urobilinogen Ur Leukocyte Esterase Urine RBC Urine WBC Ur Epithelial Cells Urine Bacteria 07/12/18 01:43 WBC RBC Hgb Hct MCV MCH MCHC RDW Plt Count MPV Gran % Lymph % (Auto) [place] % (Auto) Eos % (Auto) Baso % (Auto) Gran # Lymph # (Auto) [place] # (Auto) Eos # (Auto) Baso # (Auto) Neutrophils % (Manual) Band Neutrophils % Lymphocytes % (Manual) Monocytes % (Manual) Platelet Evaluation pO2 49 VBG pH 7.30 L VBG pCO2 19.0 L* VBG HCO3 9.3 L VBG Total CO2 9.9 L VBG O2 Sat (Calc) 89.1 H VBG Base Excess -14.7 L VBG Potassium 3.9 Sodium 140.0 Chloride 113.0 H Glucose 154 H Lactate 6.6 H* FiO2 21.0 Potassium Carbon Dioxide Anion Gap BUN Creatinine Est GFR ( Amer) Est GFR (Non-Af Amer) POC Glucose (mg/dL) Random Glucose Calcium Phosphorus Magnesium Total Bilirubin AST ALT Alkaline Phosphatase Total Protein Albumin Globulin Albumin/Globulin Ratio Venous Blood Potassium 3.9 Urine Color Urine Appearance Urine pH Ur Specific [place] Urine Protein Urine Glucose (UA) Urine Ketones Urine Blood Urine Nitrate Urine Bilirubin Urine Urobilinogen Ur Leukocyte Esterase Urine RBC Urine WBC Ur Epithelial Cells Urine Bacteria Review of Systems - Review of Systems Review of Systems: per [facility] Critical Care Progress Note - Nutrition Nutrition: Nutrition Category Date Time Status Diabetic [Consistent Carbohydrate] [DIET] Diets 07/11/18 Dinner Ordered Assessment/Plan - Assessment and Plan (Free Text) Assessment: 72 y/o F with PMHx of recurrent nephrolithiasis, recurrent UTI/urosepsis, ureterovesicular reflux, DM2, Crohn's disease, h/o subdural hematoma, pancytopenia admitted to ICU for septic shock, likely secondary to urosepsis in the setting of recurrent nephrolithiasis and ureterovesicular reflux. Plan: Neuro: AxO x 2 [id number] Confused/Disoriented CT Head: Generalized parenchymal atrophy noted as demonstrated by symmetrical dilation of ventricles and sulci. Chronic periventricular and subcortical microvascular disease is seen. Hyperdense left frontal collection is present consistent with subarachnoid hemorrhage, measuring approximately 1.5cm. No mi dline shift Per neurosurgery: No surgical intervention Maintain BP <140/90 Administer 2u platelets stat Reorient frequently Cardiovascular: currently hypotensive @ 90s/40s Resuscitated with 1800 mL LR (30ml/kg), and 500cc LR bolus yesterday. BP non-responsive to fluid resuscitation R IJ triple lumen catheter in place 10mcg/min norepinephrine augmented with with fixed rate of 0.03 vasopressin Maintain MAP >60 HR in 100s Respiratory: Saturating well on 2L RA NC Lungs CTA b/l. No active pulmonary disease on Chest xray VB.30/19 Lactate improvin.6 if ph < 7.15 start bicarb drip treat underlying urosepsis Maintain SaO2 >90% Pulmonary toilet GI: NPO abdomen soft/nondistended protonix IVP for GI PPx /Renal: Hx of recurrent UTI Hx of recurrent nephrolithiasis ureterovesicular reflux Z[place]jas catheter Renal ultrasound: b/l proximal ureteric stones. b/l renal stones. b/l pelvic fullness/trace hydronephrosis more on the left side Urosepsis U/A + for UTI Consult ID [email or web address] per ID recs Urine cultures: gram (-) rods Consult urology: Dr. Win Consult nephrology: Dr. Jernigan Maintain euvolemia replete electrolytes prn Monitor I/Os. Urine output >0.5 ml/kg/hr ID: Afebrile No leukocytosis R IJ triple lumen catheter in place Septic shock 2/2 urosepsis Hx of recurrent UTI/nephrolithiasis Lactate elevated, downtrending Repeat shock panel and trend lactate Treat with broad spectrum vancomycin, meropenem, Urine culture: gram (-) rods follow-up blood cx Consult ID. f/u recs Endocrine: Maintain euglycemia <180 Heme: H/H stable history of thrombocytopenia Platelets at 42 Administer 2u platelets Hold lovenox d/t subdural/subarachnoid hemorrhage DVT/GI Ppx: SCD/Protonix Case seen, examined and discussed with attending physician, Dr. Chaparro <Arleth Chaparro - Last Filed: 07/12/18 17:38> CCU Objective - Vital Signs / Intake & Output Vital Signs (Last 4 hours): Vital Signs Temp Pulse Resp BP Pulse Ox 07/12/18 16:49 97.6 F 82 28 H 94/55 L 07/12/18 16:45 94/55 L 97 07/12/18 16:41 97 07/12/18 16:30 100 H 33 H 106/53 L 97 07/12/18 16:20 83 28 H 97 07/12/18 16:15 81 25 H 97/50 L 97 07/12/18 16:10 83 32 H 98 07/12/18 16:00 85 27 H 95/46 L 96 07/12/18 15:50 85 27 H 97 07/12/18 15:45 83 28 H 89/43 L 96 07/12/18 15:40 85 27 H 97 07/12/18 15:30 87 27 H 109/50 L 97 07/12/18 15:29 97.7 F 85 27 H 99/51 L 07/12/18 15:20 87 26 H 98 07/12/18 15:17 85 29 H 07/12/18 15:16 85 24 07/12/18 15:15 86 27 H 99/51 L 98 07/12/18 15:10 90 37 H 101/49 L 91 L 07/12/18 15:09 87 101/51 L 95 07/12/18 15:08 85 31 H 07/12/18 15:07 97.7 F 85 28 H 101/49 L 07/12/18 15:06 86 24 07/12/18 15:05 86 26 H 07/12/18 15:00 87 77/51 L 97 07/12/18 14:58 97.6 F 86 30 H 103/46 L 07/12/18 14:50 104 H 22 103/46 L 96 07/12/18 14:42 84 29 H 95/44 L 98 07/12/18 14:40 89 30 H 81 L 07/12/18 14:30 95 H 98/51 L 93 L 07/12/18 14:29 97.7 F 91 H 32 H 98/51 L 07/12/18 14:20 77 98 07/12/18 14:13 97.7 F 86 28 H 96/47 L 11/08/18 14:10 90 97 07/12/18 14:00 80 25 H 96/47 L 97 07/12/18 13:50 84 31 H 98 07/12/18 13:40 83 99 Intake and Output (Last 8hrs): Intake & Output 07/12/18 07/12/18 07/12/18 06:59 14:59 22:59 Intake Total 300 50 Output Total 200 Balance -200 300 50 Weight 55.338 kg Intake: IV 250 Blood Product 0 0 Apheresis Plts Acda Lr 0 Irr Unit [id number] Apheresis Plts Acda Lr 0 Irr 2nd Unit [id number] Other 50 50 Apheresis Plts Acda Lr 50 Irr Unit [id number] Apheresis Plts Acda Lr 50 Irr 2nd Unit [id number] Output: Urine 200 Urethral ([place]) 200 Other: # Bowel Movements 2 - Medications Active Medications: Active Medications Generic Name Dose Route Start Last Admin Trade Name Freq PRN Reason Stop Dose Admin Meropenem 1 gm in 50 mls @ 100 mls/hr 07/11/18 10:30 07/12/18 11:03 Merrem Iv 1 Gm Premix IVPB 100 mls/hr Q12 AGNES Administration Protocol NOREPINEPHRINE BIT/0.9 % NACL 4 mg in 250 mls @ 15 mls/hr 07/11/18 11:47 07/12/18 11:08 Levophed 4 Mg/ 250 Ml Ns Premixed IV 10 mcg/min .[id number] PRN 37.5 mls/hr TITRATE PER MD ORDER Administration Protocol 4 MCG/MIN Vasopressin 20 units/ Sodium 101 mls @ 9.09 mls/hr 07/11/18 13:15 07/12/18 11:00 Chloride IV 9.09 mls/hr .[id number] AGNES Administration Protocol 0.03 U/MIN Lactated Ringer's 500 mls @ 0 mls/hr 07/11/18 14:26 Lactated Ringer's IV .Q0M AGNES Per Protocol Sodium Bicarbonate 150 meq/ 1,150 mls @ 100 mls/hr 07/12/18 11:15 07/12/18 13:28 Dextrose IV 07/14/18 11:16 100 mls/hr .[id number] AGNES Administration Acetaminophen 1,000 mg in 100 mls @ 400 mls/hr 07/12/18 15:24 Ofirmev IVPB 07/13/18 11:05 Q6H PRN Pain, moderate (4-7) Morphine Sulfate 2 mg 07/12/18 17:27 Morphine IVP Q6H PRN Pain, severe (8-10) Ondansetron HCl 4 mg 07/12/18 06:07 07/12/18 06:20 Zofran Inj IVP 4 mg Q6H PRN Administration Nausea/Vomiting Pantoprazole Sodium 40 mg 07/11/18 16:00 07/12/18 11:05 Protonix Inj IVP Not Given DAILY AGNES - Patient Studies Lab Studies: Microbiology Studies 07/11/18 04:30 Urine Culture - Preliminary Urine,Clean Catch Gram Negative Daniele Gram Positive Cocci 07/11/18 05:30 Blood Culture - Preliminary Blood Gram Negative Daniele Gram Stain - Final 07/11/18 05:30 Blood Culture - Preliminary Blood Gram Negative Daniele Gram Stain - Final Lab Studies 07/12/18 07/12/18 07/12/18 Range/Units 11:00 08:10 08:10 WBC 33.2 H* D (4.5-11.0) 10^3/uL RBC 3.39 L (3.5-6.1) 10^6/uL Hgb 10.7 L (12.0-16.0) g/dL Hct 31.4 L (36.0-48.0) % MCV 92.6 (80.0-105.0) fl MCH 31.6 (25.0-35.0) pg MCHC 34.1 (31.0-37.0) g/dl RDW 14.8 H (11.5-14.5) % Plt Count 29 L* (120.0-450.0) 10^3/uL MPV (7.0-11.0) fl Gran % (50.0-68.0) % Lymph % (Auto) (22.0-35.0) % [place] % (Auto) (1.0-6.0) % Eos % (Auto) (1.5-5.0) % Baso % (Auto) (0.0-3.0) % Gran # (1.4-6.5) Lymph # (Auto) (1.2-3.4) [place] # (Auto) (0.1-0.6) Eos # (Auto) (0.0-0.7) Baso # (Auto) (0.0-2.0) K/mm3 Neutrophils % (Manual) (50.0-70.0) % Band Neutrophils % (0-2) % Lymphocytes % (Manual) (22.0-35.0) % Monocytes % (Manual) (1.0-6.0) % Platelet Evaluation (NORMAL) pO2 (30-55) mm/Hg VBG pH (7.32-7.43) VBG pCO2 (40-60) VBG HCO3 (21-28) mmol/l VBG Total CO2 (22-28) mmol.L VBG O2 Sat (Calc) (40-65) % VBG Base Excess (0.0-2.0) mmol/L VBG Potassium (3.6-5.2) mmol/L Sodium 140 (132-148) mmol/L Chloride 119 H (98-107) mmol/L Glucose (65-105) mg/dl Lactate (0.7-2.1) mmol/L FiO2 % Potassium 3.4 L (3.6-5.0) mmol/L Carbon Dioxide 13 L (21-33) mmol/L Anion Gap 12 (10-20) BUN 13 (7-21) mg/dL Creatinine 1.3 H (0.7-1.2) mg/dl Est GFR ( Amer) 49 Est GFR (Non-Af Amer) 40 POC Glucose (mg/dL) 153 H (65-110) mg/dL Random Glucose 99 (70-110) mg/dL Calcium 6.7 L* (8.4-10.5) mg/dL Phosphorus 3.5 (2.5-4.5) mg/dL Magnesium 2.1 (1.7-2.2) mg/dL Total Bilirubin 0.9 (0.2-1.3) mg/dL AST 38 H (14-36) U/L ALT 35 (7-56) U/L Alkaline Phosphatase 115 (38-126) U/L Troponin I ng/mL Total Protein 4.6 L (5.8-8.3) g/dL Albumin 2.0 L (3.0-4.8) g/dL Globulin 2.6 gm/dL Albumin/Globulin Ratio 0.8 L (1.1-1.8) Venous Blood Potassium (3.6-5.2) mmol/L 07/12/18 07/12/18 07/12/18 Range/Units 08:00 07:46 01:43 WBC (4.5-11.0) 10^3/uL RBC (3.5-6.1) 10^6/uL Hgb (12.0-16.0) g/dL Hct (36.0-48.0) % MCV (80.0-105.0) fl MCH (25.0-35.0) pg MCHC (31.0-37.0) g/dl RDW (11.5-14.5) % Plt Count (120.0-450.0) 10^3/uL MPV (7.0-11.0) fl Gran % (50.0-68.0) % Lymph % (Auto) (22.0-35.0) % [place] % (Auto) (1.0-6.0) % Eos % (Auto) (1.5-5.0) % Baso % (Auto) (0.0-3.0) % Gran # (1.4-6.5) Lymph # (Auto) (1.2-3.4) [place] # (Auto) (0.1-0.6) Eos # (Auto) (0.0-0.7) Baso # (Auto) (0.0-2.0) K/mm3 Neutrophils % (Manual) (50.0-70.0) % Band Neutrophils % (0-2) % Lymphocytes % (Manual) (22.0-35.0) % Monocytes % (Manual) (1.0-6.0) % Platelet Evaluation (NORMAL) pO2 49 (30-55) mm/Hg VBG pH 7.30 L (7.32-7.43) VBG pCO2 19.0 L* (40-60) VBG HCO3 9.3 L (21-28) mmol/l VBG Total CO2 9.9 L (22-28) mmol.L VBG O2 Sat (Calc) 89.1 H (40-65) % VBG Base Excess -14.7 L (0.0-2.0) mmol/L VBG Potassium 3.9 (3.6-5.2) mmol/L Sodium 140.0 (132-148) mmol/L Chloride 113.0 H (98-107) mmol/L Glucose 154 H (65-105) mg/dl Lactate 6.6 H* (0.7-2.1) mmol/L FiO2 21.0 % Potassium (3.6-5.0) mmol/L Carbon Dioxide (21-33) mmol/L Anion Gap (10-20) BUN (7-21) mg/dL Creatinine (0.7-1.2) mg/dl Est GFR ( Amer) Est GFR (Non-Af Amer) POC Glucose (mg/dL) 110 (65-110) mg/dL Random Glucose (70-110) mg/dL Calcium (8.4-10.5) mg/dL Phosphorus (2.5-4.5) mg/dL Magnesium (1.7-2.2) mg/dL Total Bilirubin (0.2-1.3) mg/dL AST (14-36) U/L ALT (7-56) U/L Alkaline Phosphatase (38-126) U/L Troponin I 3.66 H* D ng/mL Total Protein (5.8-8.3) g/dL Albumin (3.0-4.8) g/dL Globulin gm/dL Albumin/Globulin Ratio (1.1-1.8) Venous Blood Potassium 3.9 (3.6-5.2) mmol/L 07/11/18 07/11/18 07/11/18 Range/Units 22:37 21:08 06:45 WBC 3.5 L (4.5-11.0) 10^3/uL RBC 3.64 (3.5-6.1) 10^6/uL Hgb 11.4 L (12.0-16.0) g/dL Hct 34.4 L (36.0-48.0) % MCV 94.5 D (80.0-105.0) fl MCH 31.3 (25.0-35.0) pg MCHC 33.1 (31.0-37.0) g/dl RDW 14.5 (11.5-14.5) % Plt Count 42 L* (120.0-450.0) 10^3/uL MPV 11.3 H (7.0-11.0) fl Gran % 93.4 H (50.0-68.0) % Lymph % (Auto) 4.9 L (22.0-35.0) % [place] % (Auto) 1.4 (1.0-6.0) % Eos % (Auto) 0.3 L (1.5-5.0) % Baso % (Auto) 0.0 (0.0-3.0) % Gran # 3.25 (1.4-6.5) Lymph # (Auto) 0.2 L (1.2-3.4) [place] # (Auto) 0.1 (0.1-0.6) Eos # (Auto) 0.0 (0.0-0.7) Baso # (Auto) 0.00 (0.0-2.0) K/mm3 Neutrophils % (Manual) 84 H (50.0-70.0) % Band Neutrophils % 10 H (0-2) % Lymphocytes % (Manual) 5 L (22.0-35.0) % Monocytes % (Manual) 1 (1.0-6.0) % Platelet Evaluation Low (NORMAL) pO2 50 (30-55) mm/Hg VBG pH 7.25 L (7.32-7.43) VBG pCO2 20.0 L (40-60) VBG HCO3 8.8 L (21-28) mmol/l VBG Total CO2 9.4 L (22-28) mmol.L VBG O2 Sat (Calc) 90.0 H (40-65) % VBG Base Excess -16.3 L (0.0-2.0) mmol/L VBG Potassium 4.4 (3.6-5.2) mmol/L Sodium 139.0 (132-148) mmol/L Chloride 113.0 H (98-107) mmol/L Glucose 196 H (65-105) mg/dl Lactate 7.8 H* (0.7-2.1) mmol/L FiO2 21.0 % Potassium (3.6-5.0) mmol/L Carbon Dioxide (21-33) mmol/L Anion Gap (10-20) BUN (7-21) mg/dL Creatinine (0.7-1.2) mg/dl Est GFR ( Amer) Est GFR (Non-Af Amer) POC Glucose (mg/dL) 205 H (65-110) mg/dL Random Glucose (70-110) mg/dL Calcium (8.4-10.5) mg/dL Phosphorus (2.5-4.5) mg/dL Magnesium (1.7-2.2) mg/dL Total Bilirubin (0.2-1.3) mg/dL AST (14-36) U/L ALT (7-56) U/L Alkaline Phosphatase (38-126) U/L Troponin I ng/mL Total Protein (5.8-8.3) g/dL Albumin (3.0-4.8) g/dL Globulin gm/dL Albumin/Globulin Ratio (1.1-1.8) Venous Blood Potassium 4.4 (3.6-5.2) mmol/L 07/11/18 Range/Units 05:30 WBC (4.5-11.0) 10^3/uL RBC (3.5-6.1) 10^6/uL Hgb (12.0-16.0) g/dL Hct (36.0-48.0) % MCV (80.0-105.0) fl MCH (25.0-35.0) pg MCHC (31.0-37.0) g/dl RDW (11.5-14.5) % Plt Count (120.0-450.0) 10^3/uL MPV (7.0-11.0) fl Gran % (50.0-68.0) % Lymph % (Auto) (22.0-35.0) % [place] % (Auto) (1.0-6.0) % Eos % (Auto) (1.5-5.0) % Baso % (Auto) (0.0-3.0) % Gran # (1.4-6.5) Lymph # (Auto) (1.2-3.4) [place] # (Auto) (0.1-0.6) Eos # (Auto) (0.0-0.7) Baso # (Auto) (0.0-2.0) K/mm3 Neutrophils % (Manual) (50.0-70.0) % Band Neutrophils % (0-2) % Lymphocytes % (Manual) (22.0-35.0) % Monocytes % (Manual) (1.0-6.0) % Platelet Evaluation (NORMAL) pO2 55 (30-55) mm/Hg VBG pH 7.21 L (7.32-7.43) VBG pCO2 24.0 L (40-60) VBG HCO3 9.6 L (21-28) mmol/l VBG Total CO2 10.3 L (22-28) mmol.L VBG O2 Sat (Calc) 90.2 H (40-65) % VBG Base Excess -16.5 L (0.0-2.0) mmol/L VBG Potassium 3.0 L (3.6-5.2) mmol/L Sodium 142.0 (132-148) mmol/L Chloride 113.0 H (98-107) mmol/L Glucose 121 H (65-105) mg/dl Lactate 9.8 H* (0.7-2.1) mmol/L FiO2 21.0 % Potassium (3.6-5.0) mmol/L Carbon Dioxide (21-33) mmol/L Anion Gap (10-20) BUN (7-21) mg/dL Creatinine (0.7-1.2) mg/dl Est GFR ( Amer) Est GFR (Non-Af Amer) POC Glucose (mg/dL) (65-110) mg/dL Random Glucose (70-110) mg/dL Calcium (8.4-10.5) mg/dL Phosphorus (2.5-4.5) mg/dL Magnesium (1.7-2.2) mg/dL Total Bilirubin (0.2-1.3) mg/dL AST (14-36) U/L ALT (7-56) U/L Alkaline Phosphatase (38-126) U/L Troponin I ng/mL Total Protein (5.8-8.3) g/dL Albumin (3.0-4.8) g/dL Globulin gm/dL Albumin/Globulin Ratio (1.1-1.8) Venous Blood Potassium 3.0 L (3.6-5.2) mmol/L Laboratory Results - last 24 hr 07/11/18 07/11/18 07/11/18 05:30 06:45 21:08 WBC 3.5 L RBC 3.64 Hgb 11.4 L Hct 34.4 L MCV 94.5 D MCH 31.3 MCHC 33.1 RDW 14.5 Plt Count 42 L* MPV 11.3 H Gran % 93.4 H Lymph % (Auto) 4.9 L [place] % (Auto) 1.4 Eos % (Auto) 0.3 L Baso % (Auto) 0.0 Gran # 3.25 Lymph # (Auto) 0.2 L [place] # (Auto) 0.1 Eos # (Auto) 0.0 Baso # (Auto) 0.00 Neutrophils % (Manual) 84 H Band Neutrophils % 10 H Lymphocytes % (Manual) 5 L Monocytes % (Manual) 1 Platelet Evaluation Low pO2 55 VBG pH 7.21 L VBG pCO2 24.0 L VBG HCO3 9.6 L VBG Total CO2 10.3 L VBG O2 Sat (Calc) 90.2 H VBG Base Excess -16.5 L VBG Potassium 3.0 L Sodium 142.0 Chloride 113.0 H Glucose 121 H Lactate 9.8 H* FiO2 21.0 Potassium Carbon Dioxide Anion Gap BUN Creatinine Est GFR ( Amer) Est GFR (Non-Af Amer) POC Glucose (mg/dL) 205 H Random Glucose Calcium Phosphorus Magnesium Total Bilirubin AST ALT Alkaline Phosphatase Troponin I Total Protein Albumin Globulin Albumin/Globulin Ratio Venous Blood Potassium 3.0 L 07/11/18 07/12/18 07/12/18 22:37 01:43 07:46 WBC RBC Hgb Hct MCV MCH MCHC RDW Plt Count MPV Gran % Lymph % (Auto) [place] % (Auto) Eos % (Auto) Baso % (Auto) Gran # Lymph # (Auto) [place] # (Auto) Eos # (Auto) Baso # (Auto) Neutrophils % (Manual) Band Neutrophils % Lymphocytes % (Manual) Monocytes % (Manual) Platelet Evaluation pO2 50 49 VBG pH 7.25 L 7.30 L VBG pCO2 20.0 L 19.0 L* VBG HCO3 8.8 L 9.3 L VBG Total CO2 9.4 L 9.9 L VBG O2 Sat (Calc) 90.0 H 89.1 H VBG Base Excess -16.3 L -14.7 L VBG Potassium 4.4 3.9 Sodium 139.0 140.0 Chloride 113.0 H 113.0 H Glucose 196 H 154 H Lactate 7.8 H* 6.6 H* FiO2 21.0 21.0 Potassium Carbon Dioxide Anion Gap BUN Creatinine Est GFR ( Amer) Est GFR (Non-Af Amer) POC Glucose (mg/dL) 110 Random Glucose Calcium Phosphorus Magnesium Total Bilirubin AST ALT Alkaline Phosphatase Troponin I Total Protein Albumin Globulin Albumin/Globulin Ratio Venous Blood Potassium 4.4 3.9 07/12/18 07/12/18 07/12/18 08:00 08:10 08:10 WBC 33.2 H* D RBC 3.39 L Hgb 10.7 L Hct 31.4 L MCV 92.6 MCH 31.6 MCHC 34.1 RDW 14.8 H Plt Count 29 L* MPV Gran % Lymph % (Auto) [place] % (Auto) Eos % (Auto) Baso % (Auto) Gran # Lymph # (Auto) [place] # (Auto) Eos # (Auto) Baso # (Auto) Neutrophils % (Manual) Band Neutrophils % Lymphocytes % (Manual) Monocytes % (Manual) Platelet Evaluation pO2 VBG pH VBG pCO2 VBG HCO3 VBG Total CO2 VBG O2 Sat (Calc) VBG Base Excess VBG Potassium Sodium 140 Chloride 119 H Glucose Lactate FiO2 Potassium 3.4 L Carbon Dioxide 13 L Anion Gap 12 BUN 13 Creatinine 1.3 H Est GFR ( Amer) 49 Est GFR (Non-Af Amer) 40 POC Glucose (mg/dL) Random Glucose 99 Calcium 6.7 L* Phosphorus 3.5 Magnesium 2.1 Total Bilirubin 0.9 AST 38 H ALT 35 Alkaline Phosphatase 115 Troponin I 3.66 H* D Total Protein 4.6 L Albumin 2.0 L Globulin 2.6 Albumin/Globulin Ratio 0.8 L Venous Blood Potassium 07/12/18 11:00 WBC RBC Hgb Hct MCV MCH MCHC RDW Plt Count MPV Gran % Lymph % (Auto) [place] % (Auto) Eos % (Auto) Baso % (Auto) Gran # Lymph # (Auto) [place] # (Auto) Eos # (Auto) Baso # (Auto) Neutrophils % (Manual) Band Neutrophils % Lymphocytes % (Manual) Monocytes % (Manual) Platelet Evaluation pO2 VBG pH VBG pCO2 VBG HCO3 VBG Total CO2 VBG O2 Sat (Calc) VBG Base Excess VBG Potassium Sodium Chloride Glucose Lactate FiO2 Potassium Carbon Dioxide Anion Gap BUN Creatinine Est GFR ( Amer) Est GFR (Non-Af Amer) POC Glucose (mg/dL) 153 H Random Glucose Calcium Phosphorus Magnesium Total Bilirubin AST ALT Alkaline Phosphatase Troponin I Total Protein Albumin Globulin Albumin/Globulin Ratio Venous Blood Potassium EKG/Cardiology Studies: Cardiology / EKG Studies 07/12/18 07:58 EKG [ELECTROCARDIOGRAM] Stat Comment: Reason For Exam: ?st changes Critical Care Progress Note - Nutrition Nutrition: Nutrition Category Date Time Status Diabetic [Consistent Carbohydrate] [DIET] Diets 07/11/18 Dinner Ordered Addendum Addendum: 07/12/18 17:34 ICU ATTENDING : Patent seen and examined with housestaff. Agree with progress note with follow ing additions/exceptions: 72F with hx of recurrent nephrolithiasis, recurrent UTI/urosepsis, ureterovesicular reflux, DM2, Crohn's disease, h/o subdural hematoma, pancytopenia admitted to the MICU with septic shock likely urosepsis Renal US shows mulitple stones BL with mild hydronephrosis. Discussed case with Urology Dr Win and Dr. Valera (IR). Plan for CT to evaluate if stent placement or nephrostomy tube is indicated. For now, she has rec'd enough fluid 30cc/kg (about 1800cc) Cont Levophed with vasopressin to augment the levo at a fixed rate of 0.03 now at 10 of levophed broad abx as per ID monitor urineoutput cont to trend lac to ensure it clears if ph < 7.15 start bicarb drip monitor mental status, she is much more awake and alert today CT Head did show small SAH, given her low plat will transfuse to a goal of > 100 see overngiht housestaff note for discussion with neurosurg - overall, no plan for intervention PPI for GI PPX Rest of care as above Arleth Chaparro MD Pulmonary, Critical Care and Sleep Medicine Critical Care TIme: 45 mins
[2018-07-12 08:18] LABS: HEMOGLOBIN 10.7 g/dL (12.0-16.0); MEAN CELL VOLUME 92.6 fl (80.0-105.0); MEAN CORPUSCULAR HEMOGLOBIN 31.6 pg (25.0-35.0); MEAN CORPUSCULAR HGB CONC 34.1 g/dl (31.0-37.0); RBC 3.39 10^6/uL (3.5-6.1); RED CELL DISTRIBUTION WIDTH 14.8 % (11.5-14.5)
[2018-07-12 08:34] LABS: PLATELET COUNT 29 10^3/uL (120.0-450.0); WHITE BLOOD COUNT 33.2 10^3/uL (4.5-11.0)
[2018-07-12 08:40] LABS: ALB/GLOB RATIO 0.8 (1.1-1.8); CALCIUM 6.7 mg/dL (8.4-10.5)
[2018-07-12] MEDS ORDERED: Gentamicin 80 mg/2mL Inj. IVPB ONE (08:45)
--- NOTE | 2018-07-12 08:56 | CT ---
Date of service: 07/11/2018 PROCEDURE: CT HEAD WITHOUT CONTRAST. HISTORY: change in mental status COMPARISON: 03/09/2017 TECHNIQUE: Axial computed tomography images were obtained through the head/brain without intravenous contrast. Radiation dose: Total exam DLP = 1083.28 mGy-cm. This CT exam was performed using one or more of the following dose reduction techniques: Automated exposure control, adjustment of the mA and/or kV according to patient size, and/or use of iterative reconstruction technique. FINDINGS: HEMORRHAGE: There is a small amount of subarachnoid hemorrhage in the left frontal lobe. BRAIN: No mass effect or edema. Mild atrophy VENTRICLES: Unremarkable. No hydrocephalus. CALVARIUM: Unremarkable. PARANASAL SINUSES: Unremarkable as visualized. No significant inflammatory changes. MASTOID AIR CELLS: Unremarkable as visualized. No inflammatory changes. OTHER FINDINGS: The report concurs with the preliminary [facility] report IMPRESSION: Small amount of subarachnoid hemorrhage in the left frontal lobe.
--- NOTE | 2018-07-12 09:08 | CP.PCM.CON ---
<Mahnaz Vanegasil - Last Filed: 07/12/18 14:57> History of Present Illness - History of Present Illness History of Present Illness: Cliff Vanegas- Internal Medicine Resident- Consult Note on Behalf of Neurology Team Subjective: CC: AMS HPI: Patient is a 72 year old female with PMHx of recurrent nephrolithiasis, recurrent UTIs, ureterovesicular reflux, DM2, Crohn's disease, h/o subdural hematoma brought in by EMS for evaluation and treatmnt of fever/chills/diarrhea x 2days. Neurology team was consulted for management of subarachnoid hemorrhage found on imaging. Patient seen and examined at bedside. Patient is awake and alert. Patient does not answer questions appropriately but does follow commands. Further subjective data cannot be ascertained at this time. PMHx: recurrent nephrolithiasis, UTIs, b/l hydronephrosis, crohns disease, h/o subdural hematoma PSH: b/l ureteral stents, cholecystectomy, appendectomy All: latex, cashew, nut, naproxen, cats FMH: Mother: at 65 due to UT. Father: at 65 due to coma passed from unknown reason PMD: Dr. Oleg Browne Urologist: Dr. Horvath Physical Examination: - Constitutional Appears: NAD - Head Exam Head Exam: ATRAUMATIC, NORMAL INSPECTION, NORMOCEPHALIC - Eye Exam Eye Exam: EOMI, Normal appearance, PERRL - ENT Exam ENT Exam: Mucous membranes dry, R central line - Respiratory Exam Respiratory Exam: Clear to Auscultation Bilateral. absent: Wheezes, Respiratory Distress, Stridor - Cardiovascular Exam Cardiovascular Exam: +S1, +S2 - GI/Abdominal Exam GI & Abdominal Exam: Soft. absent: Firm, Guarding - Extremities Exam Extremities exam: no clubbing, no cyanosis - Neurological Exam Neurological exam: awake, alert, responds to verbal stimuli, follows commands, does not answer questions appropriately - Skin Skin Exam: Dry, Intact, Normal Color, Warm Assessment and Plan: Patient is a 72 year old female with PMHx of recurrent nephrolithiasis, recurrent UTIs, ureterovesicular reflux, DM2, Crohn's disease, h/o subdural hematoma brought in by EMS for evaluation and treatment of fever/chills/diarrhea x 2days. Neurology team was consulted for management of subarachnoid hemorrhage found on imaging. [facility] - 07/11/[address] without Contrast - Small amount of subarachnoid hemorrhage in the left frontal lobe. - 07/12/2018 CTA head and neck ordered and pending - 07/12/2018 Brain MRI without contrast ordered and pending Patient seen, case discussed with, and plan approved by attending physician, Dr. Tyler. Past Patient History - Infectious Disease Hx of Infectious Diseases: None - Tetanus Immunizations Tetanus Immunization: Unknown - Past Social History Smoking Status: Never Smoked - CARDIAC Hx Pacemaker: No - PULMONARY Hx Respiratory Disorders: Yes Hx Asthma: Yes - NEUROLOGICAL Hx Paralysis: No - HEENT Hx HEENT Problems: No Hx Cataracts: Yes - RENAL Hx Chronic Kidney Disease: Yes Hx Kidney Stones: Yes Other/Comment: RENAL CALCULI - ENDOCRINE/METABOLIC Hx Diabetes Mellitus Type 2: Yes (NIDD) - HEMATOLOGICAL/ONCOLOGICAL Hx Blood Transfusions: Yes (2014) Hx Blood Transfusion Reaction: No - INTEGUMENTARY Hx Dermatological Problems: No - MUSCULOSKELETAL/RHEUMATOLOGICAL Hx Musculoskeletal Disorders: Yes (RIB INJURY) - GASTROINTESTINAL Hx Gastrointestinal Disorders: Yes Hx Crohn's Disease: Yes Other/Comment: CHOLELITHAISIS. GASTRIC BYPASS - GENITOURINARY/GYNECOLOGICAL Hx Genitourinary Disorders: Yes (PYELONEPHRITIS,PSEUDOMONAS UTI,RENAL CA) Other/Comment: kidney stone - PSYCHIATRIC Hx Emotional Abuse: No Hx Physical Abuse: No Hx Substance Use: No - SURGICAL HISTORY Hx Cholecystectomy: Yes Hx Gastric Bypass Surgery: Yes Other/Comment: kidney surgery - ANESTHESIA Hx Anesthesia Reactions: No Hx Malignant Hyperthermia: No Meds Allergies/Adverse Reactions: Allergies Allergy/AdvReac Type Severity Reaction Status Date / Time latex Allergy Severe ANAPHYLAXIS Verified 07/11/18 14:32 cashew nut Allergy Intermediate SWELLING-TH Verified 07/11/18 14:32 ROAT naproxen AdvReac Intermediate SWELLING/WELTS Verified 07/11/18 14:32 ON LEGS cats Allergy Intermediate SWELLING/EY Uncoded 07/11/18 14:32 ES - Medications Medications: Current Medications Meropenem (Merrem Iv 1 Gm Premix) 1 gm in 50 mls @ 100 mls/hr IVPB Q12 AGNES; Protocol Last Admin: 07/11/18 22:08 Dose: 100 mls/hr Acetaminophen (Ofirmev) 1,000 mg in 100 mls @ 400 mls/hr IVPB Q6H PRN PRN Reason: Temperature Stop: 07/13/18 11:05 NOREPINEPHRINE BIT/0.9 % NACL (Levophed 4 Mg/ 250 Ml Ns Premixed) 4 mg in 250 mls @ 15 mls/hr IV .[id number] PRN; Protocol PRN Reason: TITRATE PER MD ORDER Last Titration: 07/12/18 07:00 Dose: 10 mcg/min, 37.5 mls/hr Vasopressin 20 units/ Sodium (Chloride) 101 mls @ 9.09 mls/hr IV .[id number] AGNES; Protocol Last Admin: 07/12/18 00:00 Dose: 9.09 mls/hr Lactated Ringer's (Lactated Ringer's) 500 mls @ 0 mls/hr IV .Q0M AGNES Gentamicin Sulfate 415 mg/ (Sodium Chloride) 110.375 mls @ 110.375 mls/hr IVPB ONCE ONE Stop: 07/12/18 09:59 Ondansetron HCl (Zofran Inj) 4 mg IVP Q6H PRN PRN Reason: Nausea/Vomiting Last Admin: 07/12/18 06:20 Dose: 4 mg Pantoprazole Sodium (Protonix Inj) 40 mg IVP DAILY AGNES Last Admin: 07/12/18 08:48 Dose: 40 mg Results - Vital Signs Recent Vital Signs: Last Vital Signs Temp 99.7 F H 07/11/18 18:03 Pulse 93 H 07/12/18 07:45 Resp 27 H 07/12/18 07:40 BP 101/48 L 07/12/18 07:45 Pulse Ox 95 07/12/18 07:45 - Labs Result Diagrams: 07/12/18 08:10 07/12/18 08:10 Labs: Laboratory Results - last 24 hr 07/11/18 07/11/18 07/11/18 05:30 06:45 08:45 WBC 3.5 L RBC 3.64 Hgb 11.4 L Hct 34.4 L MCV 94.5 D MCH 31.3 MCHC 33.1 RDW 14.5 Plt Count 42 L* MPV 11.3 H Gran % 93.4 H Lymph % (Auto) 4.9 L [place] % (Auto) 1.4 Eos % (Auto) 0.3 L Baso % (Auto) 0.0 Gran # 3.25 Lymph # (Auto) 0.2 L [place] # (Auto) 0.1 Eos # (Auto) 0.0 Baso # (Auto) 0.00 Neutrophils % (Manual) 84 H Band Neutrophils % 10 H Lymphocytes % (Manual) 5 L Monocytes % (Manual) 1 Platelet Evaluation Low pO2 55 85 H VBG pH 7.21 L 7.18 L* VBG pCO2 24.0 L 26.0 L VBG HCO3 9.6 L 9.7 L VBG Total CO2 10.3 L 10.5 L VBG O2 Sat (Calc) 90.2 H 97.2 H VBG Base Excess -16.5 L -17.1 L VBG Potassium 3.0 L 3.2 L Sodium 142.0 141.0 Chloride 113.0 H 113.0 H Glucose 121 H 82 Lactate 9.8 H* 9.9 H* FiO2 21.0 21.0 Potassium Carbon Dioxide Anion Gap BUN Creatinine Est GFR ( Amer) Est GFR (Non-Af Amer) POC Glucose (mg/dL) Random Glucose Calcium Phosphorus Magnesium Total Bilirubin AST ALT Alkaline Phosphatase Total Protein Albumin Globulin Albumin/Globulin Ratio Venous Blood Potassium 3.0 L 3.2 L 07/11/18 07/11/18 07/11/18 09:24 11:14 16:19 WBC RBC Hgb Hct MCV MCH MCHC RDW Plt Count MPV Gran % Lymph % (Auto) [place] % (Auto) Eos % (Auto) Baso % (Auto) Gran # Lymph # (Auto) [place] # (Auto) Eos # (Auto) Baso # (Auto) Neutrophils % (Manual) Band Neutrophils % Lymphocytes % (Manual) Monocytes % (Manual) Platelet Evaluation pO2 VBG pH VBG pCO2 VBG HCO3 VBG Total CO2 VBG O2 Sat (Calc) VBG Base Excess VBG Potassium Sodium Chloride Glucose Lactate FiO2 Potassium Carbon Dioxide Anion Gap BUN Creatinine Est GFR ( Amer) Est GFR (Non-Af Amer) POC Glucose (mg/dL) 72 78 58 L Random Glucose Calcium Phosphorus Magnesium Total Bilirubin AST ALT Alkaline Phosphatase Total Protein Albumin Globulin Albumin/Globulin Ratio Venous Blood Potassium 07/11/18 07/11/18 07/11/18 16:33 16:33 17:19 WBC RBC Hgb Hct MCV MCH MCHC RDW Plt Count MPV Gran % Lymph % (Auto) [place] % (Auto) Eos % (Auto) Baso % (Auto) Gran # Lymph # (Auto) [place] # (Auto) Eos # (Auto) Baso # (Auto) Neutrophils % (Manual) Band Neutrophils % Lymphocytes % (Manual) Monocytes % (Manual) Platelet Evaluation pO2 190 H VBG pH 7.22 L VBG pCO2 21.0 L VBG HCO3 8.6 L VBG Total CO2 9.2 L VBG O2 Sat (Calc) 99.6 H VBG Base Excess -17.1 L VBG Potassium 3.1 L Sodium 141.0 140 Chloride 114.0 H 118 H Glucose 55 L Lactate 8.7 H* FiO2 21.0 Potassium 3.2 L Carbon Dioxide 9 L Anion Gap 17 BUN 10 Creatinine 1.2 Est GFR ( Amer) 54 Est GFR (Non-Af Amer) 44 POC Glucose (mg/dL) 112 H Random Glucose 54 L Calcium 7.0 L Phosphorus 2.6 Magnesium 1.6 L Total Bilirubin 0.9 AST 37 H ALT 33 Alkaline Phosphatase 102 Total Protein 4.5 L Albumin 2.0 L Globulin 2.5 Albumin/Globulin Ratio 0.8 L Venous Blood Potassium 3.1 L 07/11/18 07/11/18 07/12/18 21:08 22:37 01:43 WBC RBC Hgb Hct MCV MCH MCHC RDW Plt Count MPV Gran % Lymph % (Auto) [place] % (Auto) Eos % (Auto) Baso % (Auto) Gran # Lymph # (Auto) [place] # (Auto) Eos # (Auto) Baso # (Auto) Neutrophils % (Manual) Band Neutrophils % Lymphocytes % (Manual) Monocytes % (Manual) Platelet Evaluation pO2 50 49 VBG pH 7.25 L 7.30 L VBG pCO2 20.0 L 19.0 L* VBG HCO3 8.8 L 9.3 L VBG Total CO2 9.4 L 9.9 L VBG O2 Sat (Calc) 90.0 H 89.1 H VBG Base Excess -16.3 L -14.7 L VBG Potassium 4.4 3.9 Sodium 139.0 140.0 Chloride 113.0 H 113.0 H Glucose 196 H 154 H Lactate 7.8 H* 6.6 H* FiO2 21.0 21.0 Potassium Carbon Dioxide Anion Gap BUN Creatinine Est GFR ( Amer) Est GFR (Non-Af Amer) POC Glucose (mg/dL) 205 H Random Glucose Calcium Phosphorus Magnesium Total Bilirubin AST ALT Alkaline Phosphatase Total Protein Albumin Globulin Albumin/Globulin Ratio Venous Blood Potassium 4.4 3.9 07/12/18 07/12/18 07/12/18 07:46 08:10 08:10 WBC 33.2 H* D RBC 3.39 L Hgb 10.7 L Hct 31.4 L MCV 92.6 MCH 31.6 MCHC 34.1 RDW 14.8 H Plt Count 29 L* MPV Gran % Lymph % (Auto) [place] % (Auto) Eos % (Auto) Baso % (Auto) Gran # Lymph # (Auto) [place] # (Auto) Eos # (Auto) Baso # (Auto) Neutrophils % (Manual) Band Neutrophils % Lymphocytes % (Manual) Monocytes % (Manual) Platelet Evaluation pO2 VBG pH VBG pCO2 VBG HCO3 VBG Total CO2 VBG O2 Sat (Calc) VBG Base Excess VBG Potassium Sodium 140 Chloride 119 H Glucose Lactate FiO2 Potassium 3.4 L Carbon Dioxide 13 L Anion Gap 12 BUN 13 Creatinine 1.3 H Est GFR ( Amer) 49 Est GFR (Non-Af Amer) 40 POC Glucose (mg/dL) 110 Random Glucose 99 Calcium 6.7 L* Phosphorus 3.5 Magnesium 2.1 Total Bilirubin 0.9 AST 38 H ALT 35 Alkaline Phosphatase 115 Total Protein 4.6 L Albumin 2.0 L Globulin 2.6 Albumin/Globulin Ratio 0.8 L Venous Blood Potassium <Navdeep Tyler - Last Filed: 07/13/18 21:24> Meds - Medications Medications: Current Medications Meropenem (Merrem Iv 1 Gm Premix) 1 gm in 50 mls @ 100 mls/hr IVPB Q12 AGNES; Protocol Last Admin: 07/13/18 09:35 Dose: 100 mls/hr NOREPINEPHRINE BIT/0.9 % NACL (Levophed 4 Mg/ 250 Ml Ns Premixed) 4 mg in 250 mls @ 15 mls/hr IV .[id number] PRN; Protocol PRN Reason: TITRATE PER MD ORDER Last Admin: 07/13/18 14:49 Dose: 7 mcg/min, 26.25 mls/hr Dexmedetomidine HCl (Precedex 400mcg/100ml) 400 mcg in 100 mls @ 2.767 mls/hr IV .Q24H PRN; Protocol PRN Reason: Agitation Last Admin: 07/13/18 13:28 Dose: 0.2 mcg/kg/hr, 2.767 mls/hr Sodium Chloride (Sodium Chloride 0.9%) 1,000 mls @ 60 mls/hr IV .[id number] [facility] Last Admin: 07/13/18 15:48 Dose: 60 mls/hr Potassium Chloride (Potassium Chloride 20 Meq/100 Ml) 20 meq in 100 mls @ 50 mls/hr IVPB Q2H [facility] Stop: 07/13/18 22:44 Last Admin: 07/13/18 18:49 Dose: 50 mls/hr Insulin Human Regular (Humulin R High) 0 units SC ACHS [facility]; Protocol Last Admin: 07/13/18 16:44 Dose: 2 u Morphine Sulfate (Morphine) 2 mg IVP Q6H PRN PRN Reason: Pain, severe (8-10) Last Admin: 07/12/18 18:05 Dose: 2 mg Ondansetron HCl (Zofran Inj) 4 mg IVP Q6H PRN PRN Reason: Nausea/Vomiting Last Admin: 07/12/18 06:20 Dose: 4 mg Pantoprazole Sodium (Protonix Inj) 40 mg IVP DAILY [facility] Last Admin: 07/13/18 09:40 Dose: 40 mg Results - Vital Signs Recent Vital Signs: Last Vital Signs Temp 98.1 F 07/13/18 16:50 Pulse 81 07/13/18 16:40 Resp 17 07/13/18 16:30 BP 93/55 L 07/13/18 16:30 Pulse Ox 99 07/13/18 16:30 - Labs Result Diagrams: 07/13/18 05:30 07/13/18 16:26 Labs: Laboratory Results - last 24 hr 07/12/18 07/12/18 07/12/18 16:07 22:07 22:30 WBC RBC Hgb Hct MCV MCH MCHC RDW Plt Count Manual Plt Count pCO2 pO2 HCO3 ABG pH ABG Total CO2 ABG O2 Saturation ABG Base Excess ABG Potassium VBG pH VBG pCO2 VBG HCO3 VBG Total CO2 VBG O2 Sat (Calc) VBG Base Excess VBG Potassium Glucose Lactate FiO2 Sodium Potassium Chloride Carbon Dioxide Anion Gap BUN Creatinine Est GFR ( Amer) Est GFR (Non-Af Amer) POC Glucose (mg/dL) 182 H 261 H Random Glucose Calcium Phosphorus Magnesium Total Bilirubin AST ALT Alkaline Phosphatase Troponin I Total Protein Albumin Globulin Albumin/Globulin Ratio Triglycerides Cholesterol LDL Cholesterol Direct HDL Cholesterol Arterial Blood Potassium Venous Blood Potassium Influenza Typ A,B (EIA) Negative for flu a/b Blood Type Antibody Screen BBK History Checked 07/13/18 07/13/18 07/13/18 05:00 05:30 05:30 WBC 22.8 H D RBC 3.06 L Hgb 9.4 L Hct 27.8 L MCV 90.8 MCH 30.7 MCHC 33.8 RDW 15.0 H Plt Count 33 L* Manual Plt Count pCO2 pO2 HCO3 ABG pH ABG Total CO2 ABG O2 Saturation ABG Base Excess ABG Potassium VBG pH VBG pCO2 VBG HCO3 VBG Total CO2 VBG O2 Sat (Calc) VBG Base Excess VBG Potassium Glucose Lactate FiO2 Sodium 143 Potassium 2.5 L* D Chloride 114 H Carbon Dioxide 23 Anion Gap 9 L BUN 17 Creatinine 1.1 Est GFR ( Amer) 59 Est GFR (Non-Af Amer) 49 POC Glucose (mg/dL) Random Glucose 246 H Calcium 6.2 L* Phosphorus 2.2 L Magnesium 1.9 Total Bilirubin 1.0 AST 28 ALT 32 Alkaline Phosphatase 108 Troponin I 1.12 H* D Total Protein 4.6 L Albumin 2.0 L Globulin 2.5 Albumin/Globulin Ratio 0.8 L Triglycerides 119 Cholesterol 66 L LDL Cholesterol Direct < 30 HDL Cholesterol 30 Arterial Blood Potassium Venous Blood Potassium Influenza Typ A,B (EIA) Blood Type Antibody Screen BBK History Checked 07/13/18 07/13/18 07/13/18 06:30 08:41 08:50 WBC RBC Hgb Hct MCV MCH MCHC RDW Plt Count Manual Plt Count 30 L* pCO2 pO2 HCO3 ABG pH ABG Total CO2 ABG O2 Saturation ABG Base Excess ABG Potassium VBG pH VBG pCO2 VBG HCO3 VBG Total CO2 VBG O2 Sat (Calc) VBG Base Excess VBG Potassium Glucose Lactate FiO2 Sodium Potassium Chloride Carbon Dioxide Anion Gap BUN Creatinine Est GFR ( Amer) Est GFR (Non-Af Amer) POC Glucose (mg/dL) 249 H Random Glucose Calcium Phosphorus Magnesium Total Bilirubin AST ALT Alkaline Phosphatase Troponin I Total Protein Albumin Globulin Albumin/Globulin Ratio Triglycerides Cholesterol LDL Cholesterol Direct HDL Cholesterol Arterial Blood Potassium Venous Blood Potassium Influenza Typ A,B (EIA) Blood Type A NEGATIVE Antibody Screen Negative BBK History Checked Patient has bt 07/13/18 07/13/18 07/13/18 09:20 11:30 12:33 WBC RBC Hgb Hct MCV MCH MCHC RDW Plt Count Manual Plt Count pCO2 33 L pO2 90 H 120.0 H HCO3 22.9 ABG pH 7.45 ABG Total CO2 23.9 ABG O2 Saturation 98.8 H ABG Base Excess -0.4 ABG Potassium 2.4 L* VBG pH 7.45 H VBG pCO2 34.0 L VBG HCO3 23.6 VBG Total CO2 24.6 VBG O2 Sat (Calc) 98.7 H VBG Base Excess 0.1 VBG Potassium 2.7 L Glucose 236 H 165 H Lactate 2.6 H 2.1 FiO2 21.0 32.0 Sodium 144.0 144.0 Potassium Chloride 115.0 H 117.0 H Carbon Dioxide Anion Gap BUN Creatinine Est GFR ( Amer) Est GFR (Non-Af Amer) POC Glucose (mg/dL) 164 H Random Glucose Calcium Phosphorus Magnesium Total Bilirubin AST ALT Alkaline Phosphatase Troponin I Total Protein Albumin Globulin Albumin/Globulin Ratio Triglycerides Cholesterol LDL Cholesterol Direct HDL Cholesterol Arterial Blood Potassium 2.4 L* Venous Blood Potassium 2.7 L Influenza Typ A,B (EIA) Blood Type Antibody Screen BBK History Checked 07/13/18 07/13/18 07/13/18 16:08 16:26 16:26 WBC RBC Hgb Hct MCV MCH MCHC RDW Plt Count Manual Plt Count pCO2 pO2 50 HCO3 ABG pH ABG Total CO2 ABG O2 Saturation ABG Base Excess ABG Potassium VBG pH 7.43 VBG pCO2 39.0 L VBG HCO3 25.9 VBG Total CO2 27.1 VBG O2 Sat (Calc) 91.7 H VBG Base Excess 1.5 VBG Potassium 3.3 L Glucose 167 H Lactate 1.7 FiO2 21.0 Sodium 145.0 145 Potassium 3.3 L Chloride 115.0 H 114 H Carbon Dioxide 25 Anion Gap 9 L BUN 16 Creatinine 1.0 Est GFR ( Amer) > 60 Est GFR (Non-Af Amer) 55 POC Glucose (mg/dL) 169 H Random Glucose 155 H Calcium 6.0 L* Phosphorus 2.5 Magnesium 1.8 Total Bilirubin 1.6 H AST 25 ALT 32 Alkaline Phosphatase 115 Troponin I Total Protein 4.6 L Albumin 2.1 L Globulin 2.5 Albumin/Globulin Ratio 0.8 L Triglycerides Cholesterol LDL Cholesterol Direct HDL Cholesterol Arterial Blood Potassium Venous Blood Potassium 3.3 L Influenza Typ A,B (EIA) Blood Type Antibody Screen BBK History Checked Assessment & Plan - Assessment and Plan (Free Text) Assessment: All medical record entries made by the REsident were at my direction and per sonally dictated by me. I have reviewed the chart and agree that the record accurately reflects my personal performance of the history, physical exam, medical decision making, and the department course for this patient. I have also personally directed, reviewed, and agree with the discharge instructions and disposition.
[2018-07-12] MEDS ORDERED: Potassium Chloride 20 mEq ER Tab PO STA (09:20)
--- NOTE | 2018-07-12 10:43 | CP.PCM.CON ---
History of Present Illness - History of Present Illness History of Present Illness: 72 year old female with PMH of Crohn's disease, DM, history of pyelonephritis, bilateral nephrolithiasis, S/P cholecystectomy, S/P tubal ligation, history of right sided pyelonephritis associated with nephrolithiasis with E. faecalis came in to [facility] because of fever and chills for the past 2 days, associated with loose bowel movement. She was also having generalized weakness but had no vomiting. As per ED records, the patient was awake and alert but was noted to be febrile and hypotensive in the ED and did not respond to fluid resuscitation and was sent to the ICU. She is currently somewhat lethargic and not responding appropriately to questions. Full ROS is currently unobtainable because of the patient's mental status. Blood cx taken are showing gram negative bacilli and urinalysis is showing pyuria. CT head is showing subarachnoid hemorrhage in the frontal area. Infectious Diseases consult is requested to further evaluate and manage. Review of Systems - Review of Systems All systems: reviewed and no additional remarkable complaints except (as per HPI) Past Patient History - Infectious Disease Hx of Infectious Diseases: None - Tetanus Immunizations Tetanus Immunization: Unknown - Past Social History Smoking Status: Never Smoked - CARDIAC Hx Pacemaker: No - PULMONARY Hx Respiratory Disorders: Yes Hx Asthma: Yes - NEUROLOGICAL Hx Paralysis: No - HEENT Hx HEENT Problems: No Hx Cataracts: Yes - RENAL Hx Chronic Kidney Disease: Yes Hx Kidney Stones: Yes Other/Comment: RENAL CALCULI - ENDOCRINE/METABOLIC Hx Diabetes Mellitus Type 2: Yes (NIDD) - HEMATOLOGICAL/ONCOLOGICAL Hx Blood Transfusions: Yes (2014) Hx Blood Transfusion Reaction: No - INTEGUMENTARY Hx Dermatological Problems: No - MUSCULOSKELETAL/RHEUMATOLOGICAL Hx Musculoskeletal Disorders: Yes (RIB INJURY) - GASTROINTESTINAL Hx Gastrointestinal Disorders: Yes Hx Crohn's Disease: Yes Other/Comment: CHOLELITHAISIS. GASTRIC BYPASS - GENITOURINARY/GYNECOLOGICAL Hx Genitourinary Disorders: Yes (PYELONEPHRITIS,PSEUDOMONAS UTI,RENAL CA) Other/Comment: kidney stone - PSYCHIATRIC Hx Emotional Abuse: No Hx Physical Abuse: No Hx Substance Use: No - SURGICAL HISTORY Hx Cholecystectomy: Yes Hx Gastric Bypass Surgery: Yes Other/Comment: kidney surgery - ANESTHESIA Hx Anesthesia Reactions: No Hx Malignant Hyperthermia: No Meds Allergies/Adverse Reactions: Allergies Allergy/AdvReac Type Severity Reaction Status Date / Time latex Allergy Severe ANAPHYLAXIS Verified 07/11/18 14:32 cashew nut Allergy Intermediate SWELLING-TH Verified 07/11/18 14:32 ROAT naproxen AdvReac Intermediate SWELLING/WELTS Verified 07/11/18 14:32 ON LEGS cats Allergy Intermediate SWELLING/EY Uncoded 07/11/18 14:32 ES - Medications Medications: Current Medications Potassium Chloride (Potassium Chloride 20 Meq/100 Ml) 20 meq in 100 mls @ 50 mls/hr IVPB Q2H AGNES Stop: 07/11/18 10:59 Last Admin: 07/11/18 07:01 Dose: 50 mls/hr Sodium Chloride (Sodium Chloride 0.9%) 1,000 mls @ 125 mls/hr IV .Q8H AGNES Lactated Ringer's (Lactated Ringer's) 1,000 mls @ 0 mls/hr IV .Q0M AGNES Physical Exam - Constitutional Appears: Cachectic, Chronically Ill, Other (somewhat lethargic and confused, although at times answers simple questions) - Head Exam Head Exam: NORMAL INSPECTION - Neck Exam Neck exam: Negative for: Meningismus - Respiratory Exam Respiratory Exam: Decreased Breath Sounds - Cardiovascular Exam Cardiovascular Exam: +S1, +S2 - GI/Abdominal Exam GI & Abdominal Exam: Soft. absent: Tenderness Results - Vital Signs Recent Vital Signs: Last Vital Signs Temp 100.7 F H 07/11/18 08:51 Pulse 103 H 07/11/18 08:51 Resp 24 07/11/18 08:51 BP 79/49 L 07/11/18 08:51 Pulse Ox 100 07/11/18 08:51 - Labs Result Diagrams: 07/12/18 08:10 07/12/18 08:10 Labs: Laboratory Results - last 24 hr 07/11/18 07/11/18 07/11/18 05:30 05:30 05:30 WBC RBC Hgb Hct MCV MCH MCHC RDW Plt Count MPV Gran % Lymph % (Auto) Reynolds % (Auto) Eos % (Auto) Baso % (Auto) Gran # Lymph # (Auto) Reynolds # (Auto) Eos # (Auto) Baso # (Auto) Neutrophils % (Manual) Band Neutrophils % Lymphocytes % (Manual) Monocytes % (Manual) Platelet Evaluation PT 16.3 H INR 1.41 APTT 24.2 L pO2 55 VBG pH 7.21 L VBG pCO2 24.0 L VBG HCO3 9.6 L VBG Total CO2 10.3 L VBG O2 Sat (Calc) 90.2 H VBG Base Excess -16.5 L VBG Potassium 3.0 L Sodium 142.0 141 Chloride 113.0 H 117 H Glucose 121 H Lactate 9.8 H* FiO2 21.0 Potassium 2.6 L* D Carbon Dioxide 10 L D Anion Gap 17 BUN 9 Creatinine 1.1 Est GFR ( Amer) 59 Est GFR (Non-Af Amer) 49 POC Glucose (mg/dL) Random Glucose 121 H Calcium 7.5 L Phosphorus 1.3 L* Magnesium 1.5 L Total Bilirubin 0.7 AST 43 H ALT 25 Alkaline Phosphatase 145 H D Total Protein 5.5 L Albumin 2.6 L Globulin 2.9 Albumin/Globulin Ratio 0.9 L Venous Blood Potassium 3.0 L Urine Color Urine Appearance Urine pH Ur Specific [place] Urine Protein Urine Glucose (UA) Urine Ketones Urine Blood Urine Nitrate Urine Bilirubin Urine Urobilinogen Ur Leukocyte Esterase Urine RBC Urine WBC Ur Epithelial Cells Urine Bacteria 07/11/18 07/11/18 07/11/18 06:25 06:45 08:45 WBC 3.5 L RBC 3.64 Hgb 11.4 L Hct 34.4 L MCV 94.5 D MCH 31.3 MCHC 33.1 RDW 14.5 Plt Count 42 L* MPV 11.3 H Gran % 93.4 H Lymph % (Auto) 4.9 L Reynolds % (Auto) 1.4 Eos % (Auto) 0.3 L Baso % (Auto) 0.0 Gran # 3.25 Lymph # (Auto) 0.2 L Reynolds # (Auto) 0.1 Eos # (Auto) 0.0 Baso # (Auto) 0.00 Neutrophils % (Manual) 84 H Band Neutrophils % 10 H Lymphocytes % (Manual) 5 L Monocytes % (Manual) 1 Platelet Evaluation Low PT INR APTT pO2 85 H VBG pH 7.18 L* VBG pCO2 26.0 L VBG HCO3 9.7 L VBG Total CO2 10.5 L VBG O2 Sat (Calc) 97.2 H VBG Base Excess -17.1 L VBG Potassium 3.2 L Sodium 141.0 Chloride 113.0 H Glucose 82 Lactate 9.9 H* FiO2 21.0 Potassium Carbon Dioxide Anion Gap BUN Creatinine Est GFR ( Amer) Est GFR (Non-Af Amer) POC Glucose (mg/dL) Random Glucose Calcium Phosphorus Magnesium Total Bilirubin AST ALT Alkaline Phosphatase Total Protein Albumin Globulin Albumin/Globulin Ratio Venous Blood Potassium 3.2 L Urine Color Light red Urine Appearance Cloudy Urine pH 6.5 Ur Specific [place] 1.015 Urine Protein 30 H Urine Glucose (UA) 500 H Urine Ketones Negative Urine Blood Large H Urine Nitrate Positive H Urine Bilirubin Negative Urine Urobilinogen 0.2 Ur Leukocyte Esterase Moderate H Urine RBC Tntc Urine WBC 10 - 15 Ur Epithelial Cells 0 - 2 Urine Bacteria Small 07/11/18 09:24 WBC RBC Hgb Hct MCV MCH MCHC RDW Plt Count MPV Gran % Lymph % (Auto) Reynolds % (Auto) Eos % (Auto) Baso % (Auto) Gran # Lymph # (Auto) Reynolds # (Auto) Eos # (Auto) Baso # (Auto) Neutrophils % (Manual) Band Neutrophils % Lymphocytes % (Manual) Monocytes % (Manual) Platelet Evaluation PT INR APTT pO2 VBG pH VBG pCO2 VBG HCO3 VBG Total CO2 VBG O2 Sat (Calc) VBG Base Excess VBG Potassium Sodium Chloride Glucose Lactate FiO2 Potassium Carbon Dioxide Anion Gap BUN Creatinine Est GFR ( Amer) Est GFR (Non-Af Amer) POC Glucose (mg/dL) 72 Random Glucose Calcium Phosphorus Magnesium Total Bilirubin AST ALT Alkaline Phosphatase Total Protein Albumin Globulin Albumin/Globulin Ratio Venous Blood Potassium Urine Color Urine Appearance Urine pH Ur Specific [place] Urine Protein Urine Glucose (UA) Urine Ketones Urine Blood Urine Nitrate Urine Bilirubin Urine Urobilinogen Ur Leukocyte Esterase Urine RBC Urine WBC Ur Epithelial Cells Urine Bacteria Assessment & Plan - Assessment and Plan (Free Text) Plan: Assessment septic shock with acute renal failure, toxic-metabolic encephalopathy (on top of small left frontal lobe subarachnoid hemorrhage as seen on head CT) due to gram negative bacilli bacteremia, consider due to pyelonephritis in this patient with history of nephrolithiasis history of severe sepsis probably due to urinary tract infection in a patient with a history of nephrolithiasis S/P pigtail catheter placement history of right sided pyelonephritis associated with nephrolithiasis with E. faecalis Crohn's disease DM history of pyelonephritis bilateral nephrolithiasis S/P cholecystectomy S/P tubal ligation Plan patient was initially started on a dose of IV vancomycin and Cefepime in the ED but we have switched to Merrem and gave a dose of IV gentamicin today pending identification and sensitivities of the gram negative bacilli in the blood; follow up urine cx; would recommend CT A/P when patient is more stable patient may need Urology evaluation will monitor clinically prognosis is guarded at best
--- NOTE | 2018-07-12 10:54 | US ---
Date of service: 07/11/2018 PROCEDURE: Ultrasound of the Kidneys HISTORY: Urosepsis COMPARISON: None available. TECHNIQUE: Grayscale imaging was performed. FINDINGS: RIGHT KIDNEY: Measures: 11.6 cm. Normal in size, contour and echogenicity. There are coarse cortical calcifications. There is a 3.6 x 1.4 x 3.4 cm stone in the right proximal ureteral and 1.2 x 1.2 cm nonobstructing stone in the right interpolar region. There is mild fullness in the right collecting system. Multiple small nonobstructing stones. LEFT KIDNEY: Measures: 10.4 cm. Normal in size, contour and echogenicity. There are coarse cortical calcifications. There is a 2.7 x 2.1 cm stone in the left proximal ureter. There are multiple small nonobstructing stones. Mild fullness in the collecting system. OTHER FINDINGS: None. IMPRESSION: Bilateral proximal ureteral stones, larger on the right. Mild fullness in the collecting system. Small bilateral nonobstructing stones. A preliminary report was provided by [facility].
[2018-07-12] MEDS: Meropenem IV 1 gm in NS 1 GM/50 ML BAG IVPB SCH ×2 (11:03→21:09)
[2018-07-12] MEDS: NOREPINEPHRINE BIT/0.9 % NACL 4 MG/250 ML BAG IV PRN ×2 (11:08→19:00)
--- NOTE | 2018-07-12 13:12 | CT ---
Date of service: 07/12/2018 PROCEDURE: CT Abdomen and Pelvis without intravenous contrast HISTORY: urosepsis/hydronephrosis/renal stones COMPARISON: 06/27/2017 TECHNIQUE: Without contrast.. Contrast dose: Radiation dose: Total exam DLP = 311.19 mGy-cm. This CT exam was performed using one or more of the following dose reduction techniques: Automated exposure control, adjustment of the mA and/or kV according to patient size, and/or use of iterative reconstruction technique. FINDINGS: LOWER THORAX: Small pleural effusions LIVER: There is mild ascites surrounding the liver. The liver is otherwise unremarkable GALLBLADDER AND BILE DUCTS: The gallbladder is removed PANCREAS: Unremarkable. No gross lesion or ductal dilatation. SPLEEN: There is a decrease in the size of the spleen currently measuring 13.7 cm AP previously 17.7 cm ADRENALS: Unremarkable. No mass. KIDNEYS AND URETERS: There is a large stone in the right renal pelvis measuring 24 x 32 mm. There are 3 5 mm stones in the right distal ureter adjacent to the ureteral stent. There is a left ureteral stent. There is a 10 mm stone within the proximal pigtail. There is a 14 mm nonobstructing stone in the lower pole of the left kidney. VASCULATURE: Unremarkable. No aortic aneurysm. No aortic atherosclerotic calcification or mural plaque present. BOWEL: Unremarkable. No obstruction. No gross mural thickening. APPENDIX: Unremarkable. Normal appendix. PERITONEUM: Unremarkable. No free fluid. No free air. LYMPH NODES: Unremarkable. No enlarged lymph nodes. BLADDER: There is a Zendejas catheter in the bladder. REPRODUCTIVE: Unremarkable. BONES: No acute fracture. OTHER FINDINGS: None. IMPRESSION: There is a large stone in the right renal pelvis measuring 24 x 32 mm. There are 3 separate 5 mm stones in the right distal ureter adjacent to the ureteral stent. There is a left ureteral stent. There is a 10 mm stone within the proximal pigtail. There is a 14 mm nonobstructing stone in the lower pole of the left kidney. There is no hydronephrosis
[2018-07-12] MEDS: Sodium Bicarbonate 8.4% 150 MEQ in Dextrose 5% In Water 1,000 ML IV SCH ×2 (13:28→23:14)
--- NOTE | 2018-07-12 13:59 | CP.PCM.PN ---
<Sivakumar Vázquez - Last Filed: 07/12/18 15:11> Subjective - Date & Time of Evaluation Date of Evaluation: 07/12/18 Time of Evaluation: 07:00 - Subjective Subjective: Sivakumar Vázquez, PGY1 Medicine Progress Note for Dr. Hoyos Patient was seen and examined at bedside this morning. Patient is AAOx1 to person only. She is awake, occasionally follows commands, and moves all extremities. Patient does not provide a reliable ROS. Patient afebrile overnight and BP noted to be 101/48 during interview. Patient had some watery stool on her bed sheet during time of interview. Objective - Vital Signs/Intake and Output Vital Signs (last 24 hours): Temp Pulse Resp BP Pulse Ox 97.9 F 100 H 15 95/47 L 98 07/12/18 08:00 07/12/18 13:20 07/12/18 13:20 07/12/18 13:00 07/12/18 13:20 Intake and Output: 07/12/18 07/12/18 06:59 18:59 Intake Total 500 250 Output Total 200 Balance 300 250 - Medications Medications: Current Medications Meropenem (Merrem Iv 1 Gm Premix) 1 gm in 50 mls @ 100 mls/hr IVPB Q12 AGNES; Protocol Last Admin: 07/12/18 11:03 Dose: 100 mls/hr Acetaminophen (Ofirmev) 1,000 mg in 100 mls @ 400 mls/hr IVPB Q6H PRN PRN Reason: Temperature Stop: 07/13/18 11:05 NOREPINEPHRINE BIT/0.9 % NACL (Levophed 4 Mg/ 250 Ml Ns Premixed) 4 mg in 250 mls @ 15 mls/hr IV .[id number] PRN; Protocol PRN Reason: TITRATE PER MD ORDER Last Admin: 07/12/18 11:08 Dose: 10 mcg/min, 37.5 mls/hr Vasopressin 20 units/ Sodium (Chloride) 101 mls @ 9.09 mls/hr IV .[id number] AGNES; Protocol Last Admin: 07/12/18 11:00 Dose: 9.09 mls/hr Lactated Ringer's (Lactated Ringer's) 500 mls @ 0 mls/hr IV .Q0M AGNES Sodium Bicarbonate 150 meq/ (Dextrose) 1,150 mls @ 100 mls/hr IV .[id number] [facility] Stop: 07/14/18 11:16 Last Admin: 07/12/18 13:28 Dose: 100 mls/hr Ondansetron HCl (Zofran Inj) 4 mg IVP Q6H PRN PRN Reason: Nausea/Vomiting Last Admin: 07/12/18 06:20 Dose: 4 mg Pantoprazole Sodium (Protonix Inj) 40 mg IVP DAILY [facility] Last Admin: 07/12/18 11:05 Dose: Not Given - Labs Labs: 07/12/18 08:10 07/12/18 08:10 PT 16.3 SECONDS (9.4-12.5) H 07/11/18 05:30 INR 1.41 07/11/18 05:30 APTT 24.2 Seconds (25.1-36.5) L 07/11/18 05:30 - Constitutional Appears: No Acute Distress - Head Exam Head Exam: ATRAUMATIC, NORMAL INSPECTION, NORMOCEPHALIC - Eye Exam Eye Exam: EOMI, Normal appearance, PERRL Pupil Exam: NORMAL ACCOMODATION, PERRL - ENT Exam ENT Exam: Mucous Membranes Moist, Normal Exam - Neck Exam Neck Exam: Full ROM, Normal Inspection. absent: Lymphadenopathy - Respiratory Exam Respiratory Exam: Clear to Ausculation Bilateral, NORMAL BREATHING PATTERN. absent: Rhonchi, Wheezes, Respiratory Distress - Cardiovascular Exam Cardiovascular Exam: RRR, +S1, +S2 - GI/Abdominal Exam GI & Abdominal Exam: Tenderness (mild suprapubic tenderness to palpation), Normal Bowel Sounds. absent: Firm, Guarding, Rigid - Back Exam Back Exam: NORMAL INSPECTION - Neurological Exam Neurological Exam: Alert. absent: Oriented x3 - Skin Skin Exam: Dry, Intact, Normal Color, Warm Assessment and Plan - Assessment and Plan (Free Text) Assessment: Patient is a 72 y/o F with PMHx of recurrent nephrolithiasis, recurrent UTIs, ureterovesicular reflux, DM2, Crohn's disease, h/o subdural hematoma brought in by EMS to [facility] with complaints of fever/chills/diarrhea x 2days. Patient was admitted to ICU for septic shock 2/2 Urosepsis. Neurology was consulted for subarachnoid hemorrhage on head CT. Patient also found to be bacteremic. Plan: Bacteremia in the setting of Septic Shock 2/2 Urosepsis with Hx of recurrent nephrolithiasis - Gram negative bacilli, consider pyelonephritis - meropenem and dose of IV gentamicin as per ID recs - Abdomen/Pelvis CT (07/12): large stone in the R-renal pelvis measuring 24x32 mm. There are 3 separate 5 mm stones in the right distal ureter adjacent to the ureteral stent. There is a left ureteral stent. There is a 10 mm stone within within proximal pigtail. There is a 14 mm nonobstructing stone in the lower pole of the L-kidney. - Renal sono (07/11): b/l proximal ureteral stones, larger on right. Small b/l non-obstructing stones. - R-IJ central line placed by ICU team on 07/11 due to septic shock - c/w Levophed with vasopressin; maintain MAP > 60 - As per ICU recommendations, bicarb gtt if pH < 7.15 - ID recs appreciated - Nephrology recs appreciated. - Urology consulted, f/u recs - UA + UTI - Lactate 9.8 in ED, trending down, 6.6 most recent - Blood cx +gram negative rods - UCx + gram negative rods +gram positive cocci - CXR: no active disease Subarachnoid Hemorrhage - small amount (1.5 cm) of subarachnoid hemorrhage in the left frontal lobe - Neuro consulted, recs appreciated - NeuroSx was curbsided and no intervention at this time since aneurysm is frontal lobe and superficial. Recommend medical management: Keep BP < 140/80, HOB > 35 degrees, seizure/fall precautions, swallow eval, PT/OT. - Patient has hx of subdural hematoma Leukocytosis - wbc 33; uptrending from 3.5 - monitor cbc - C. diff level ordered; diarrhea noted on exam - Patient was on high dose steroids at home, may contribute to leukocytosis - consider stress dose steroids Thrombocytopenia - Downtrending platelets: 49 to 29 - d/w ICU team about platelet transfusion - Patient has a hx of thrombocytopenia - Consider heme/onc consult Hypokalemia - improving - currently 3.4 - replete as needed - 2.6 on admission - monitor HypoMg - resolved - currently 2.1 - 1.5 on admission - replete as needed HypoPhos - resolved - currently 3.5 - 1.3 on admission - replete as needed DVT ppx: SCD GI ppx: PTX Dispo: continue to monitor patient in the ICU. Case was discussed and reviewed with Attending Physician, Dr. Hoyos <Ila Hoyos - Last Filed: 07/12/18 17:19> Objective - Vital Signs/Intake and Output Vital Signs (last 24 hours): Temp Pulse Resp BP Pulse Ox 97.6 F 82 28 H 94/55 L 97 07/12/18 16:49 07/12/18 16:49 07/12/18 16:49 07/12/18 16:49 07/12/18 16:45 Intake and Output: 07/12/18 07/12/18 06:59 18:59 Intake Total 500 350 Output Total 200 Balance 300 350 - Medications Medications: Current Medications Meropenem (Merrem Iv 1 Gm Premix) 1 gm in 50 mls @ 100 mls/hr IVPB Q12 AGNES; Protocol Last Admin: 07/12/18 11:03 Dose: 100 mls/hr NOREPINEPHRINE BIT/0.9 % NACL (Levophed 4 Mg/ 250 Ml Ns Premixed) 4 mg in 250 mls @ 15 mls/hr IV .[id number] PRN; Protocol PRN Reason: TITRATE PER MD ORDER Last Admin: 07/12/18 11:08 Dose: 10 mcg/min, 37.5 mls/hr Vasopressin 20 units/ Sodium (Chloride) 101 mls @ 9.09 mls/hr IV .[id number] AGNES; Protocol Last Admin: 07/12/18 11:00 Dose: 9.09 mls/hr Lactated Ringer's (Lactated Ringer's) 500 mls @ 0 mls/hr IV .Q0M AGNES Sodium Bicarbonate 150 meq/ (Dextrose) 1,150 mls @ 100 mls/hr IV .[id number] AGNES Stop: 07/14/18 11:16 Last Admin: 07/12/18 13:28 Dose: 100 mls/hr Acetaminophen (Ofirmev) 1,000 mg in 100 mls @ 400 mls/hr IVPB Q6H PRN PRN Reason: Pain, moderate (4-7) Stop: 07/13/18 11:05 Ondansetron HCl (Zofran Inj) 4 mg IVP Q6H PRN PRN Reason: Nausea/Vomiting Last Admin: 07/12/18 06:20 Dose: 4 mg Pantoprazole Sodium (Protonix Inj) 40 mg IVP DAILY AGNES Last Admin: 07/12/18 11:05 Dose: Not Given - Labs Labs: 07/12/18 08:10 07/12/18 08:10 PT 16.3 SECONDS (9.4-12.5) H 07/11/18 05:30 INR 1.41 07/11/18 05:30 APTT 24.2 Seconds (25.1-36.5) L 07/11/18 05:30 Attending/Attestation - Attestation I have personally seen and examined this patient.: Yes I have fully participated in the care of the patient.: Yes I have reviewed all pertinent clinical information, including history, physical exam and plan: Yes Notes (Text): 07/12/18 17:09 72 year old female with past medical history of UTI, nephrolithiasis, diabetes, and history of subdural hematoma who presented with fever and chills. She was found to have septic shock secondary to gram negative bacteremia and UTI and admitted to the ICU. BP did not respond to fluid resuscitation and she was started on pressors. Continue with iv antibiotics as per ID. CT abd/pelvis showed large stone (24x32 mm) in the right renal pelvis and 3 separate 5 mm stones in the right distal ureter adjacent to the ureteral stent; left ureteral stent with 10 mm ston within proximal pigtail; no hydronephrosis. Renal ultrasound showed bilateral proximal ureteral stones, larger on right; and small bilateral non-obstructing stones. Will follow up with urology recommendations. Patient also has significant leukocytosis today; possibly secondary to above however will order cdif to rule out cdif infection as there is reported history of diarrhea. Overnight she also had CT head which showed small amount of subarachnoid hemorrhage in the left frontal lobe. Neurosurgery was notified; no acute intervention. Neurology consultation was requested as well. Patient also has thrombocytopenia. Will continue to monitor closely and transfuse as needed. Also noted to have elevated troponin, possible NSTEMI. Cardiology evaluation is requested. Patient is not candidate for aspirin or anticoagulation secondary to SAH and thrombocytopenia. Will replete and repeat lytes. Overall prognosis is guarded. Ila Hoyos MD Hospitalist.
--- NOTE | 2018-07-12 14:07 | PN ---
DATE: 07/12/2018 SUBJECTIVE: The patient remains in the ICU. Last blood pressure 92/43, pulse of 122 and respiratory rate 26. Continues on Levophed, meropenem and vasopressin. The patient had a renal ultrasound which showed a stone in the right proximal ureter and right interpolar region mild fullness in the right collecting system with multiple small non-obstructing stones. There is mild fullness in the collecting systems. I discussed the ultrasound findings with Dr. Carter Valera who does not feel that there is any significant hydronephrosis. The patient's WBC count has increased and her platelet count has continued to problem. The patient also has a reported subarachnoid bleed. IMPRESSION AND PLAN: The patient does not remain a candidate for general anesthesia at this time as she remains in septic shock with hypotension on blood pressure support. She would not tolerate general anesthesia. Dr. Valera's concern was that there does not appear to be any significant hydronephrosis and he is going to obtain a CT scan of the abdomen and pelvis. I discussed with him that in the past ureteral stents have not adequately drained this patient and the plan will remain if the patient is stable enough and there is evidence of obstruction on the CT scan that I would plan placement of bilateral nephrostomies to adequately drain any possible upper tract urinary infection. Alternatively, it is possible that these stones are infected or there is some type of xanthogranulomatous pyelonephritis and the patient may require a nephrectomy at some point, but again she is not a candidate for that at this time. Continue current treatment of sepsis and I will discuss with Dr. Valera after the CT scan. Miguel Win MD
--- NOTE | 2018-07-12 15:11 | CP.PCM.PN ---
Subjective - Date & Time of Evaluation Date of Evaluation: 07/12/18 Time of Evaluation: 15:08 - Subjective Subjective: Nephrology Consultation Note: Assessment: critical CODY HAGMA with lactic acidosis Hypokalemia GNR sepsis with shock diabetes Mellitus ( years), b/l kidney stones and recurrent UTIs, gastric bypass surgery, UV reflux, crohns disease, splenomegaly, pancytopenia hypophosphatemia, hypokalemia subarachnoid hemorrhage Plan No acute need for renal replacement therapy at this time. Maintain hemodynamics stable. Avoid hypotension. Patient not on ACEI/ARB due to shock Monitor Input/Output, daily weights and renal function with basic metabolic panel added bicarb drip supplement lytes as needed renal sono reviewed. IR and urology involved check urine pro/cr and alb/cr legs compressive stockings Dose meds/antibiotics for reduced GFR. Avoid fleets enema/magnesium based laxatives. Avoid nephrotoxins/NSAIDs/ iodinated contrast (unless needed emergently) Glycemic control Further work up/management as per primary team Thanks for allowing me to participate in care of your patient. Will follow patient with you. Please call if any Qs. had d/w team and family Dr Chad Jernigan Office: [phone] Chief Complaint; fever/chills Reason for consult: acidosis and hypokalemia HPI: Pt is a 72 F with hx of diabetes Mellitus ( years), b/l kidney stones and recurrent UTIs, ileum bypass surgery, UV reflux, crohn's disease, splenomegaly, pancytopenia ? HSP presented with complaints of fever and chhills, admitted to ICU with sepsis with shock requiring pressors and lactic acidosis. no knwon OTC/herbal meds or NSAIDs No recent iodinated contrast exposure. Noted obvious episodes of low BP. per , pt got sick for last couple of days ROS: pt unable to provide any hx Physical Examination: General Appearance: in no acute respiratory distress, ill appearing Vitals reviewed and noted as below Head; Atraumatic, normocephalic ENT: no ulcers no thrush. Tongue is midline. Oropharynx: no rash or ulcers. EYES: Pupils are equal, round and reactive to light accommodation. Eye muscles and extraocular movement intact. Sclera is anicteric. Neck; supple no lymphadenopathy, no thyromegaly or bruit Lungs: Normal respiratory rate/effort. Breath sounds bilateral equal and clear Heart: Increased rate. s1s2 normal. No rub or gallop. Extremities: 2+ edema. No varicose veins Neurological: Patient is awake but confused Skin: Warm and dry. Normal turgor. No rash. Palpitation: Normal elasticity for a ge Abdomen: Abdomen is soft. Bowel sounds +. There is no abdominal tenderness, no guarding/rigidity no organomegaly Psych: unable MSK: no joint tenderness or swelling. Digits and nails normal, no deformity : kidney or bladder not palpable Labs/imaging reviewed. Past medical history, past surgical history, family history, social history, allergy reviewed and noted as below Family hx: no hx of CKD. Rest non-contributory Objective - Vital Signs/Intake and Output Vital Signs (last 24 hours): Temp Pulse Resp BP Pulse Ox 97.6 F 86 30 H 103/46 L 96 07/12/18 14:58 07/12/18 14:58 07/12/18 14:58 07/12/18 14:58 07/12/18 14:50 Intake and Output: 07/12/18 07/12/18 06:59 18:59 Intake Total 500 300 Output Total 200 Balance 300 300 - Medications Medications: Current Medications Meropenem (Merrem Iv 1 Gm Premix) 1 gm in 50 mls @ 100 mls/hr IVPB Q12 AGNES; Protocol Last Admin: 07/12/18 11:03 Dose: 100 mls/hr Acetaminophen (Ofirmev) 1,000 mg in 100 mls @ 400 mls/hr IVPB Q6H PRN PRN Reason: Temperature Stop: 07/13/18 11:05 NOREPINEPHRINE BIT/0.9 % NACL (Levophed 4 Mg/ 250 Ml Ns Premixed) 4 mg in 250 mls @ 15 mls/hr IV .[id number] PRN; Protocol PRN Reason: TITRATE PER MD ORDER Last Admin: 07/12/18 11:08 Dose: 10 mcg/min, 37.5 mls/hr Vasopressin 20 units/ Sodium (Chloride) 101 mls @ 9.09 mls/hr IV .[id number] AGNES; Protocol Last Admin: 07/12/18 11:00 Dose: 9.09 mls/hr Lactated Ringer's (Lactated Ringer's) 500 mls @ 0 mls/hr IV .Q0M COUNT INCLUDES THE [facility] Sodium Bicarbonate 150 meq/ (Dextrose) 1,150 mls @ 100 mls/hr IV .[id number] COUNT INCLUDES THE [facility] Stop: 07/14/18 11:16 Last Admin: 07/12/18 13:28 Dose: 100 mls/hr Ondansetron HCl (Zofran Inj) 4 mg IVP Q6H PRN PRN Reason: Nausea/Vomiting Last Admin: 07/12/18 06:20 Dose: 4 mg Pantoprazole Sodium (Protonix Inj) 40 mg IVP DAILY COUNT INCLUDES THE [facility] Last Admin: 07/12/18 11:05 Dose: Not Given - Labs Labs: 07/12/18 08:10 07/12/18 08:10 PT 16.3 SECONDS (9.4-12.5) H 07/11/18 05:30 INR 1.41 07/11/18 05:30 APTT 24.2 Seconds (25.1-36.5) L 07/11/18 05:30
--- NOTE | 2018-07-12 15:37 | CARD ---
APPROVED REPORT Date of service: 07/12/2018 EKG Measurement Heart [id number] [id number] <Conclusion> Sinus tachycardia T wave abnormality, consider anterolateral ischemia Abnormal ECG
[2018-07-12] MEDS: Morphine 2 mg/ml ISec IVP PRN (18:05)
[2018-07-12] MEDS: Dexmedetomidine 400mcg/100mL 400 MCG/100 ML BOTTLE IV PRN (21:01)
[2018-07-13] MEDS: NOREPINEPHRINE BIT/0.9 % NACL 4 MG/250 ML BAG IV PRN ×3 (04:33→23:40)
[2018-07-13 06:51] LABS: ALB/GLOB RATIO 0.8 (1.1-1.8); CALCIUM 6.2 mg/dL (8.4-10.5); TROPONIN I 1.12 ng/mL
[2018-07-13] MEDS ORDERED: Potassium Chloride 40 mEq/30 ml LIQ UD PO ONE (06:59)
[2018-07-13 07:09] LABS: HEMOGLOBIN 9.4 g/dL (12.0-16.0); MEAN CELL VOLUME 90.8 fl (80.0-105.0); MEAN CORPUSCULAR HEMOGLOBIN 30.7 pg (25.0-35.0); MEAN CORPUSCULAR HGB CONC 33.8 g/dl (31.0-37.0); RBC 3.06 10^6/uL (3.5-6.1); WHITE BLOOD COUNT 22.8 10^3/uL (4.5-11.0)
[2018-07-13] MEDS ORDERED: Insulin Lispro (humaLOG) MEDIUM Coverage SC SCH (07:30)
[2018-07-13 07:38] LABS: PLATELET COUNT 33 10^3/uL (120.0-450.0)
[2018-07-13] MEDS ORDERED: Potassium Phosphate 15 MMOLE in Sodium Chloride 0.9% 250 ML IVPB ONE (07:50)
[2018-07-13 08:03] LABS: HDL CHOLESTEROL 30 mg/dL (29-60)
--- NOTE | 2018-07-13 08:05 | CP.CCUPN ---
<Beau Castellanos - Last Filed: 07/13/18 10:57> CCU Subjective - Physician Review Subjective (Free Text): CRITICAL CARE PROGRESS NOTE FOR DR. ANTHONY Castellanos PGY-1 Pt seen and examined at bedside this am. She is arousable, however does not respond to ROS or questions. She grimaces to palpation of RLQ palpation. She is currently on bicarb drip @ 100ml/hr, precedex 0.2 mcg/kg/h, Norepinephrine @ 5 mcg/min, and vasopressin was turned off. MAP was @66. She is to undergo CT abdomen/pelvis and mri brain this am, precedex for agitation. CCU Objective - Vital Signs / Intake & Output Vital Signs (Last 4 hours): Vital Signs Pulse Resp BP Pulse Ox 07/13/18 07:40 74 19 98 07/13/18 07:30 68 18 91/47 L 97 07/13/18 07:20 75 21 98 07/13/18 07:10 73 20 98 07/13/18 07:00 71 19 100/44 L 98 07/13/18 06:50 74 18 99 07/13/18 06:40 71 19 99 07/13/18 06:30 69 19 108/52 L 99 07/13/18 06:20 72 19 98 07/13/18 06:10 72 19 98 07/13/18 06:00 70 18 102/57 L 98 07/13/18 05:50 73 19 98 07/13/18 05:40 71 18 98 07/13/18 05:30 71 19 94/56 L 97 07/13/18 05:21 98 07/13/18 05:10 80 20 93 L 07/13/18 05:00 72 19 93/41 L 96 07/13/18 04:50 71 19 98 07/13/18 04:40 70 20 98 07/13/18 04:30 73 19 94/53 L 96 07/13/18 04:20 72 20 99 07/13/18 04:10 74 19 97 Intake and Output (Last 8hrs): Intake & Output 07/12/18 07/13/18 07/13/18 22:59 06:59 14:59 Intake Total 1800 1867 Output Total 1250 1150 Balance 550 717 Weight 56.019 kg Intake: IV 1450 1867 Left Wrist 1200 1600 Oral 300 0 Blood Product 0 Apheresis Plts Acda Lr 0 Irr Unit [id number] Other 50 Apheresis Plts Acda Lr 50 Irr Unit [id number] Output: Urine 1250 1150 Urethral (Zendejas) 1250 1150 Other: # Bowel Movements 3 1 - Physical Exam Head: Positive for: Atraumatic, Normocephalic Pupils: Positive for: PERRL Extroacular Muscles: Positive for: EOMI Conjunctiva: Positive for: Normal Mouth: Positive for: Moist Mucous Membranes Neck: Positive for: Normal Range of Motion Respiratory/Chest: Positive for: Clear to Auscultation, Good Air Exchange. Negative for: Respiratory Distress, Accessory Muscle Use Cardiovascular: Positive for: Regular Rate and Rhythm, Normal S1, S2. Negative for: Murmurs Abdomen: Negative for: Tenderness, Distention, Peritoneal Signs Back: Positive for: Normal Inspection Upper Extremity: Positive for: Normal Inspection. Negative for: Cyanosis, Edema Lower Extremity: Positive for: Swelling (Swelling to ankles bilaterally). Negative for: Edema Neurological: Positive for: GCS=15, CN II-XII Intact, Speech Normal Skin: Positive for: Dry, Normal Color, Hot (to touch). Negative for: Rashes Psychiatric: Positive for: Alert, Oriented x 3, Normal Insight, Normal Concentration - Medications Active Medications: Active Medications Generic Name Dose Route Start Last Admin Trade Name Freq PRN Reason Stop Dose Admin Meropenem 1 gm in 50 mls @ 100 mls/hr 07/11/18 10:30 07/12/18 21:09 Merrem Iv 1 Gm Premix IVPB 100 mls/hr Q12 AGNES Administration Protocol NOREPINEPHRINE BIT/0.9 % NACL 4 mg in 250 mls @ 15 mls/hr 07/11/18 11:47 07/13/18 06:00 Levophed 4 Mg/ 250 Ml Ns Premixed IV 5 mcg/min .[id number] PRN 18.75 mls/hr TITRATE PER MD ORDER Titration Protocol 4 MCG/MIN Vasopressin 20 units/ Sodium 101 mls @ 9.09 mls/hr 07/11/18 13:15 07/12/18 23:12 Chloride IV 9.09 mls/hr .[id number] AGNES Administration Protocol 0.03 U/MIN Lactated Ringer's 500 mls @ 0 mls/hr 07/11/18 14:26 Lactated Ringer's IV .Q0M AGNES Per Protocol Sodium Bicarbonate 150 meq/ 1,150 mls @ 100 mls/hr 07/12/18 11:15 07/12/18 23:14 Dextrose IV 07/14/18 11:16 100 mls/hr .[id number] AGNES Administration Acetaminophen 1,000 mg in 100 mls @ 400 mls/hr 07/12/18 15:24 Ofirmev IVPB 07/13/18 11:05 Q6H PRN Pain, moderate (4-7) Dexmedetomidine HCl 400 mcg in 100 mls @ 2.767 mls/hr 07/12/18 18:19 07/12/18 21:01 Precedex 400mcg/100ml IV 0.2 mcg/kg/hr .Q24H PRN 2.767 mls/hr Agitation Administration Protocol 0.2 MCG/KG/HR Potassium Chloride 20 meq in 100 mls @ 50 mls/hr 07/13/18 07:00 07/13/18 07:31 Potassium Chloride 20 Meq/100 Ml IVPB 07/13/18 12:59 50 mls/hr Q2H AGNES Administration Potassium Phosphate 15 mmole/ 255 mls @ 42.5 mls/hr 07/13/18 07:50 Sodium Chloride IVPB 07/13/18 13:49 ONCE ONE Calcium Gluconate 1,000 mg/ 110 mls @ 110 mls/hr 07/13/18 07:51 Sodium Chloride IVPB 07/13/18 08:50 ONCE ONE Insulin Human Lispro 0 units 07/13/18 07:30 Humalog Med [facility] Protocol Morphine Sulfate 2 mg 07/12/18 17:27 07/12/18 18:05 Morphine IVP 2 mg Q6H PRN Administration Pain, severe (8-10) Ondansetron HCl 4 mg 07/12/18 06:07 07/12/18 06:20 Zofran Inj IVP 4 mg Q6H PRN Administration Nausea/Vomiting Pantoprazole Sodium 40 mg 07/11/18 16:00 07/12/18 11:05 Protonix Inj IVP Not Given DAILY AGNES - Patient Studies Lab Studies: Microbiology Studies 07/11/18 09:30 MRSA Culture (Admit) - Final Naris MRSA NOT DETECTED 07/11/18 04:30 Urine Culture - Preliminary Urine,Clean Catch Gram Negative Daniele Gram Positive Cocci 07/11/18 05:30 Blood Culture - Preliminary Blood Gram Negative Daniele Gram Stain - Final Lab Studies 07/13/18 07/13/18 07/13/18 Range/Units 05:30 05:30 05:00 WBC 22.8 H D (4.5-11.0) 10^3/uL RBC 3.06 L (3.5-6.1) 10^6/uL Hgb 9.4 L (12.0-16.0) g/dL Hct 27.8 L (36.0-48.0) % MCV 90.8 (80.0-105.0) fl MCH 30.7 (25.0-35.0) pg MCHC 33.8 (31.0-37.0) g/dl RDW 15.0 H (11.5-14.5) % Plt Count 33 L* (120.0-450.0) 10^3/uL Sodium 143 (132-148) mmol/L Potassium 2.5 L* D (3.6-5.0) mmol/L Chloride 114 H (98-107) mmol/L Carbon Dioxide 23 (21-33) mmol/L Anion Gap 9 L (10-20) BUN 17 (7-21) mg/dL Creatinine 1.1 (0.7-1.2) mg/dl Est GFR ( Amer) 59 Est GFR (Non-Af Amer) 49 POC Glucose (mg/dL) (65-110) mg/dL Random Glucose 246 H (70-110) mg/dL Calcium 6.2 L* (8.4-10.5) mg/dL Phosphorus 2.2 L (2.5-4.5) mg/dL Magnesium 1.9 (1.7-2.2) mg/dL Total Bilirubin 1.0 (0.2-1.3) mg/dL AST 28 (14-36) U/L ALT 32 (7-56) U/L Alkaline Phosphatase 108 (38-126) U/L Troponin I 1.12 H* D ng/mL Total Protein 4.6 L (5.8-8.3) g/dL Albumin 2.0 L (3.0-4.8) g/dL Globulin 2.5 gm/dL Albumin/Globulin Ratio 0.8 L (1.1-1.8) Triglycerides 119 (35-160) mg/dL Cholesterol 66 L (130-200) mg/dL HDL Cholesterol 30 (29-60) mg/dL Influenza Typ A,B (EIA) (NEGATIVE) 07/12/18 07/12/18 07/12/18 Range/Units 22:30 22:07 16:07 WBC (4.5-11.0) 10^3/uL RBC (3.5-6.1) 10^6/uL Hgb (12.0-16.0) g/dL Hct (36.0-48.0) % MCV (80.0-105.0) fl MCH (25.0-35.0) pg MCHC (31.0-37.0) g/dl RDW (11.5-14.5) % Plt Count (120.0-450.0) 10^3/uL Sodium (132-148) mmol/L Potassium (3.6-5.0) mmol/L Chloride (98-107) mmol/L Carbon Dioxide (21-33) mmol/L Anion Gap (10-20) BUN (7-21) mg/dL Creatinine (0.7-1.2) mg/dl Est GFR ( Amer) Est GFR (Non-Af Amer) POC Glucose (mg/dL) 261 H 182 H (65-110) mg/dL Random Glucose (70-110) mg/dL Calcium (8.4-10.5) mg/dL Phosphorus (2.5-4.5) mg/dL Magnesium (1.7-2.2) mg/dL Total Bilirubin (0.2-1.3) mg/dL AST (14-36) U/L ALT (7-56) U/L Alkaline Phosphatase (38-126) U/L Troponin I ng/mL Total Protein (5.8-8.3) g/dL Albumin (3.0-4.8) g/dL Globulin gm/dL Albumin/Globulin Ratio (1.1-1.8) Triglycerides (35-160) mg/dL Cholesterol (130-200) mg/dL HDL Cholesterol (29-60) mg/dL Influenza Typ A,B (EIA) Negative for flu a/b (NEGATIVE) 07/12/18 07/12/18 07/12/18 Range/Units 11:00 08:10 08:10 WBC 33.2 H* D (4.5-11.0) 10^3/uL RBC 3.39 L (3.5-6.1) 10^6/uL Hgb 10.7 L (12.0-16.0) g/dL Hct 31.4 L (36.0-48.0) % MCV 92.6 (80.0-105.0) fl MCH 31.6 (25.0-35.0) pg MCHC 34.1 (31.0-37.0) g/dl RDW 14.8 H (11.5-14.5) % Plt Count 29 L* (120.0-450.0) 10^3/uL Sodium 140 (132-148) mmol/L Potassium 3.4 L (3.6-5.0) mmol/L Chloride 119 H (98-107) mmol/L Carbon Dioxide 13 L (21-33) mmol/L Anion Gap 12 (10-20) BUN 13 (7-21) mg/dL Creatinine 1.3 H (0.7-1.2) mg/dl Est GFR ( Amer) 49 Est GFR (Non-Af Amer) 40 POC Glucose (mg/dL) 153 H (65-110) mg/dL Random Glucose 99 (70-110) mg/dL Calcium 6.7 L* (8.4-10.5) mg/dL Phosphorus 3.5 (2.5-4.5) mg/dL Magnesium 2.1 (1.7-2.2) mg/dL Total Bilirubin 0.9 (0.2-1.3) mg/dL AST 38 H (14-36) U/L ALT 35 (7-56) U/L Alkaline Phosphatase 115 (38-126) U/L Troponin I ng/mL Total Protein 4.6 L (5.8-8.3) g/dL Albumin 2.0 L (3.0-4.8) g/dL Globulin 2.6 gm/dL Albumin/Globulin Ratio 0.8 L (1.1-1.8) Triglycerides (35-160) mg/dL Cholesterol (130-200) mg/dL HDL Cholesterol (29-60) mg/dL Influenza Typ A,B (EIA) (NEGATIVE) 07/12/18 Range/Units 08:00 WBC (4.5-11.0) 10^3/uL RBC (3.5-6.1) 10^6/uL Hgb (12.0-16.0) g/dL Hct (36.0-48.0) % MCV (80.0-105.0) fl MCH (25.0-35.0) pg MCHC (31.0-37.0) g/dl RDW (11.5-14.5) % Plt Count (120.0-450.0) 10^3/uL Sodium (132-148) mmol/L Potassium (3.6-5.0) mmol/L Chloride (98-107) mmol/L Carbon Dioxide (21-33) mmol/L Anion Gap (10-20) BUN (7-21) mg/dL Creatinine (0.7-1.2) mg/dl Est GFR ( Amer) Est GFR (Non-Af Amer) POC Glucose (mg/dL) (65-110) mg/dL Random Glucose (70-110) mg/dL Calcium (8.4-10.5) mg/dL Phosphorus (2.5-4.5) mg/dL Magnesium (1.7-2.2) mg/dL Total Bilirubin (0.2-1.3) mg/dL AST (14-36) U/L ALT (7-56) U/L Alkaline Phosphatase (38-126) U/L Troponin I 3.66 H* D ng/mL Total Protein (5.8-8.3) g/dL Albumin (3.0-4.8) g/dL Globulin gm/dL Albumin/Globulin Ratio (1.1-1.8) Triglycerides (35-160) mg/dL Cholesterol (130-200) mg/dL HDL Cholesterol (29-60) mg/dL Influenza Typ A,B (EIA) (NEGATIVE) Laboratory Results - last 24 hr 07/12/18 07/12/18 07/12/18 08:00 08:10 08:10 WBC 33.2 H* D RBC 3.39 L Hgb 10.7 L Hct 31.4 L MCV 92.6 MCH 31.6 MCHC 34.1 RDW 14.8 H Plt Count 29 L* Sodium 140 Potassium 3.4 L Chloride 119 H Carbon Dioxide 13 L Anion Gap 12 BUN 13 Creatinine 1.3 H Est GFR ( Amer) 49 Est GFR (Non-Af Amer) 40 POC Glucose (mg/dL) Random Glucose 99 Calcium 6.7 L* Phosphorus 3.5 Magnesium 2.1 Total Bilirubin 0.9 AST 38 H ALT 35 Alkaline Phosphatase 115 Troponin I 3.66 H* D Total Protein 4.6 L Albumin 2.0 L Globulin 2.6 Albumin/Globulin Ratio 0.8 L Triglycerides Cholesterol HDL Cholesterol Influenza Typ A,B (EIA) 07/12/18 07/12/18 07/12/18 11:00 16:07 22:07 WBC RBC Hgb Hct MCV MCH MCHC RDW Plt Count Sodium Potassium Chloride Carbon Dioxide Anion Gap BUN Creatinine Est GFR ( Amer) Est GFR (Non-Af Amer) POC Glucose (mg/dL) 153 H 182 H 261 H Random Glucose Calcium Phosphorus Magnesium Total Bilirubin AST ALT Alkaline Phosphatase Troponin I Total Protein Albumin Globulin Albumin/Globulin Ratio Triglycerides Cholesterol HDL Cholesterol Influenza Typ A,B (EIA) 07/12/18 07/13/18 07/13/18 22:30 05:00 05:30 WBC 22.8 H D RBC 3.06 L Hgb 9.4 L Hct 27.8 L MCV 90.8 MCH 30.7 MCHC 33.8 RDW 15.0 H Plt Count 33 L* Sodium Potassium Chloride Carbon Dioxide Anion Gap BUN Creatinine Est GFR ( Amer) Est GFR (Non-Af Amer) POC Glucose (mg/dL) Random Glucose Calcium Phosphorus Magnesium Total Bilirubin AST ALT Alkaline Phosphatase Troponin I Total Protein Albumin Globulin Albumin/Globulin Ratio Triglycerides 119 Cholesterol 66 L HDL Cholesterol 30 Influenza Typ A,B (EIA) Negative for flu a/b 07/13/18 05:30 WBC RBC Hgb Hct MCV MCH MCHC RDW Plt Count Sodium 143 Potassium 2.5 L* D Chloride 114 H Carbon Dioxide 23 Anion Gap 9 L BUN 17 Creatinine 1.1 Est GFR ( Amer) 59 Est GFR (Non-Af Amer) 49 POC Glucose (mg/dL) Random Glucose 246 H Calcium 6.2 L* Phosphorus 2.2 L Magnesium 1.9 Total Bilirubin 1.0 AST 28 ALT 32 Alkaline Phosphatase 108 Troponin I 1.12 H* D Total Protein 4.6 L Albumin 2.0 L Globulin 2.5 Albumin/Globulin Ratio 0.8 L Triglycerides Cholesterol HDL Cholesterol Influenza Typ A,B (EIA) EKG/Cardiology Studies: Cardiology / EKG Studies 07/12/18 07:58 EKG [ELECTROCARDIOGRAM] Stat Comment: Reason For Exam: ?st changes Review of Systems - Review of Systems Review of Systems: per HPI Critical Care Progress Note - Nutrition Nutrition: Nutrition Category Date Time Status Diabetic [Consistent Carbohydrate] [DIET] Diets 07/11/18 Dinner Ordered Assessment/Plan - Assessment and Plan (Free Text) Assessment: 72 y/o F with PMHx of recurrent nephrolithiasis, recurrent UTI/urosepsis, ureterovesicular reflux, DM2, Crohn's disease, h/o subdural hematoma, pancytopenia admitted to ICU for septic shock, likely secondary to urosepsis in the setting of recurrent nephrolithiasis and ureterovesicular reflux. Plan: Neuro: AxO x 2 GCS15 Confused/Disoriented this am. Monitor mental status Continue precedex drip -Subarachnoid hemorrhage Administer 2u platelets stat MRI planned for today. Precedex onboard for agitation CT Head: Generalized parenchymal atrophy noted as demonstrated by symmetrical dilation of ventricles and sulci. Chronic periventricular and subcortical microvascular disease is seen. Hyperdense left frontal collection is present consistent with subarachnoid hemorrhage, measuring approximately 1.5cm. No midline shift Per neurosurgery: No surgical intervention Maintain BP <140/90 Reorient frequently Cardiovascular: currently hypotensive @ 90s/40s BP non-responsive to fluid resuscitation R IJ triple lumen catheter in place 5 mcg/min norepinephrine Discontinue vasopressin Maintain MAP >60 HR in 100s Respiratory: Saturating well on 2L RA NC Lungs CTA b/l. No active pulmonary disease on Chest xray treat underlying urosepsis Trend VBG w/ lactate Maintain SaO2 >90% Pulmonary toilet GI: soft diet abdomen soft/nondistended. protonix IVP for GI PPx CT abdomen planned for today /Renal: -Recurrent nephrolithiasis/UTI Renal ultrasound: b/l proximal ureteric stones. b/l renal stones. b/l pelvic fullness/trace hydronephrosis more on the left side Plans discussed with IR-Dr. Valera, Urology-Dr. Win, no plans for percutaneous drainage at the moment Zendejas catheter -Urosepsis U/A + for UTI Consult ID meropenem per ID recs Urine cultures: gram (-) rods, blood cultures: gram (-) rods Consult urology: Dr. Win Consult nephrology: Dr. Jernigan -Metabolic acidosis Bicarbonate drip per nephrology recs lactate improving Maintain euvolemia replete electrolytes prn Monitor I/Os. Urine output >0.5 ml/kg/hr ID: -Septic shock 2/2 urosepsis Hx of recurrent UTI/nephrolithiasis Afebrile. leukocytosis at 22.8, downtrending. Lactate elevated, downtrending, today 2.6 R IJ triple lumen catheter in place Treat with broad spectrum vancomycin, meropenem, Urine/blood culture: gram (-) rods Consult ID. f/u recs Endocrine: Maintain euglycemia <180 Heme: H/H stable history of thrombocytopenia Platelets at 33 Administer 2u platelets with a goal >100 Hold lovenox d/t subdural/subarachnoid hemorrhage DVT/GI Ppx: SCD/Protonix Case seen, examined and discussed with attending physician, Dr. Chaparro <Arleth Chaparro - Last Filed: 07/13/18 15:59> CCU Objective - Vital Signs / Intake & Output Vital Signs (Last 4 hours): Vital Signs Pulse Resp BP Pulse Ox 07/13/18 14:00 98/60 L 07/13/18 13:59 86 19 99 07/13/18 13:30 86 20 97/59 L 98 07/13/18 13:17 84 23 92/45 L 97 07/13/18 13:15 85 30 H 85/41 L 96 07/13/18 13:00 87 16 97/58 L 97 07/13/18 12:30 86 18 95/51 L 98 07/13/18 12:00 79 20 96/59 L Intake and Output (Last 8hrs): Intake & Output 07/13/18 07/13/18 07/13/18 06:59 14:59 22:59 Intake Total 1867 433 Output Total 1150 Balance 717 433 Weight 56.019 kg Intake: IV 1867 433 Left Wrist 1600 Oral 0 Output: Urine 1150 Urethral (Zendejas) 1150 Other: # Bowel Movements 1 - Medications Active Medications: Active Medications Generic Name Dose Route Start Last Admin Trade Name Freq PRN Reason Stop Dose Admin Meropenem 1 gm in 50 mls @ 100 mls/hr 07/11/18 10:30 07/13/18 09:35 Merrem Iv 1 Gm Premix IVPB 100 mls/hr Q12 AGNES Administration Protocol NOREPINEPHRINE BIT/0.9 % NACL 4 mg in 250 mls @ 15 mls/hr 07/11/18 11:47 07/13/18 14:49 Levophed 4 Mg/ 250 Ml Ns Premixed IV 7 mcg/min .[id number] PRN 26.25 mls/hr TITRATE PER MD ORDER Administration Protocol 4 MCG/MIN Vasopressin 20 units/ Sodium 101 mls @ 9.09 mls/hr 07/11/18 13:15 07/12/18 23:12 Chloride IV 9.09 mls/hr .[id number] AGNES Administration Protocol 0.03 U/MIN Lactated Ringer's 500 mls @ 0 mls/hr 07/11/18 14:26 Lactated Ringer's IV .Q0M AGNES Per Protocol Dexmedetomidine HCl 400 mcg in 100 mls @ 2.767 mls/hr 07/12/18 18:19 07/13/18 13:28 Precedex 400mcg/100ml IV 0.2 mcg/kg/hr .Q24H PRN 2.767 mls/hr Agitation Administration Protocol 0.2 MCG/KG/HR Sodium Chloride 1,000 mls @ 60 mls/hr 07/13/18 15:45 Sodium Chloride 0.9% IV .[id number] AGNES Insulin Human Regular 0 units 07/13/18 11:30 07/13/18 13:37 Humulin R High SC 1 u ACHS AGNES Administration Protocol Morphine Sulfate 2 mg 07/12/18 17:27 07/12/18 18:05 Morphine IVP 2 mg Q6H PRN Administration Pain, severe (8-10) Ondansetron HCl 4 mg 07/12/18 06:07 07/12/18 06:20 Zofran Inj IVP 4 mg Q6H PRN Administration Nausea/Vomiting Pantoprazole Sodium 40 mg 07/11/18 16:00 07/13/18 09:40 Protonix Inj IVP 40 mg DAILY AGNES Administration - Patient Studies Lab Studies: Microbiology Studies 07/12/18 15:19 C. difficile Antigen & Toxins A,B - Final Stool 07/11/18 05:30 Blood Culture - Final Blood Escherichia Coli Gram Stain - Final 07/11/18 05:30 Blood Culture - Final Blood Escherichia Coli Gram Stain - Final 07/11/18 04:30 Urine Culture - Final Urine,Clean Catch Proteus Mirabilis Enterococcus Faecalis 07/11/18 09:30 MRSA Culture (Admit) - Final Naris MRSA NOT DETECTED Lab Studies 07/13/18 07/13/18 07/13/18 Range/Units 12:33 11:30 09:20 WBC (4.5-11.0) 10^3/uL RBC (3.5-6.1) 10^6/uL Hgb (12.0-16.0) g/dL Hct (36.0-48.0) % MCV (80.0-105.0) fl MCH (25.0-35.0) pg MCHC (31.0-37.0) g/dl RDW (11.5-14.5) % Plt Count (120.0-450.0) 10^3/uL Manual Plt Count (120-450) K/mm3 pCO2 33 L (35-45) mm/Hg pO2 120.0 H 90 H (30-55) mm/Hg HCO3 22.9 (21-28) mmol/L ABG pH 7.45 (7.35-7.45) ABG Total CO2 23.9 (22-28) mmol.L ABG O2 Saturation 98.8 H (95-98) % ABG Base Excess -0.4 (-2.0-3.0) mmol/L ABG Potassium 2.4 L* (3.6-5.2) mmol/L VBG pH 7.45 H (7.32-7.43) VBG pCO2 34.0 L (40-60) VBG HCO3 23.6 (21-28) mmol/l VBG Total CO2 24.6 (22-28) mmol.L VBG O2 Sat (Calc) 98.7 H (40-65) % VBG Base Excess 0.1 (0.0-2.0) mmol/L VBG Potassium 2.7 L (3.6-5.2) mmol/L Glucose 165 H 236 H (65-105) mg/dl Lactate 2.1 2.6 H (0.7-2.1) mmol/L FiO2 32.0 21.0 % Sodium 144.0 144.0 (132-148) mmol/L Potassium (3.6-5.0) mmol/L Chloride 117.0 H 115.0 H (98-107) mmol/L Carbon Dioxide (21-33) mmol/L Anion Gap (10-20) BUN (7-21) mg/dL Creatinine (0.7-1.2) mg/dl Est GFR ( Amer) Est GFR (Non-Af Amer) POC Glucose (mg/dL) 164 H (65-110) mg/dL Random Glucose (70-110) mg/dL Calcium (8.4-10.5) mg/dL Phosphorus (2.5-4.5) mg/dL Magnesium (1.7-2.2) mg/dL Total Bilirubin (0.2-1.3) mg/dL AST (14-36) U/L ALT (7-56) U/L Alkaline Phosphatase (38-126) U/L Troponin I ng/mL Total Protein (5.8-8.3) g/dL Albumin (3.0-4.8) g/dL Globulin gm/dL Albumin/Globulin Ratio (1.1-1.8) Triglycerides (35-160) mg/dL Cholesterol (130-200) mg/dL LDL Cholesterol Direct (0-129) mg/dL HDL Cholesterol (29-60) mg/dL Arterial Blood Potassium 2.4 L* (3.6-5.2) mmol/L Venous Blood Potassium 2.7 L (3.6-5.2) mmol/L Influenza Typ A,B (EIA) (NEGATIVE) Blood Type Antibody Screen BBK History Checked 07/13/18 07/13/18 07/13/18 Range/Units 08:50 08:41 06:30 WBC (4.5-11.0) 10^3/uL RBC (3.5-6.1) 10^6/uL Hgb (12.0-16.0) g/dL Hct (36.0-48.0) % MCV (80.0-105.0) fl MCH (25.0-35.0) pg MCHC (31.0-37.0) g/dl RDW (11.5-14.5) % Plt Count (120.0-450.0) 10^3/uL Manual Plt Count 30 L* (120-450) K/mm3 pCO2 (35-45) mm/Hg pO2 (30-55) mm/Hg HCO3 (21-28) mmol/L ABG pH (7.35-7.45) ABG Total CO2 (22-28) mmol.L ABG O2 Saturation (95-98) % ABG Base Excess (-2.0-3.0) mmol/L ABG Potassium (3.6-5.2) mmol/L VBG pH (7.32-7.43) VBG pCO2 (40-60) VBG HCO3 (21-28) mmol/l VBG Total CO2 (22-28) mmol.L VBG O2 Sat (Calc) (40-65) % VBG Base Excess (0.0-2.0) mmol/L VBG Potassium (3.6-5.2) mmol/L Glucose (65-105) mg/dl Lactate (0.7-2.1) mmol/L FiO2 % Sodium (132-148) mmol/L Potassium (3.6-5.0) mmol/L Chloride (98-107) mmol/L Carbon Dioxide (21-33) mmol/L Anion Gap (10-20) BUN (7-21) mg/dL Creatinine (0.7-1.2) mg/dl Est GFR ( Amer) Est GFR (Non-Af Amer) POC Glucose (mg/dL) 249 H (65-110) mg/dL Random Glucose (70-110) mg/dL Calcium (8.4-10.5) mg/dL Phosphorus (2.5-4.5) mg/dL Magnesium (1.7-2.2) mg/dL Total Bilirubin (0.2-1.3) mg/dL AST (14-36) U/L ALT (7-56) U/L Alkaline Phosphatase (38-126) U/L Troponin I ng/mL Total Protein (5.8-8.3) g/dL Albumin (3.0-4.8) g/dL Globulin gm/dL Albumin/Globulin Ratio (1.1-1.8) Triglycerides (35-160) mg/dL Cholesterol (130-200) mg/dL LDL Cholesterol Direct (0-129) mg/dL HDL Cholesterol (29-60) mg/dL Arterial Blood Potassium (3.6-5.2) mmol/L Venous Blood Potassium (3.6-5.2) mmol/L Influenza Typ A,B (EIA) (NEGATIVE) Blood Type A NEGATIVE Antibody Screen Negative BBK History Checked Patient has bt 07/13/18 07/13/18 07/13/18 Range/Units 05:30 05:30 05:00 WBC 22.8 H D (4.5-11.0) 10^3/uL RBC 3.06 L (3.5-6.1) 10^6/uL Hgb 9.4 L (12.0-16.0) g/dL Hct 27.8 L (36.0-48.0) % MCV 90.8 (80.0-105.0) fl MCH 30.7 (25.0-35.0) pg MCHC 33.8 (31.0-37.0) g/dl RDW 15.0 H (11.5-14.5) % Plt Count 33 L* (120.0-450.0) 10^3/uL Manual Plt Count (120-450) K/mm3 pCO2 (35-45) mm/Hg pO2 (30-55) mm/Hg HCO3 (21-28) mmol/L ABG pH (7.35-7.45) ABG Total CO2 (22-28) mmol.L ABG O2 Saturation (95-98) % ABG Base Excess (-2.0-3.0) mmol/L ABG Potassium (3.6-5.2) mmol/L VBG pH (7.32-7.43) VBG pCO2 (40-60) VBG HCO3 (21-28) mmol/l VBG Total CO2 (22-28) mmol.L VBG O2 Sat (Calc) (40-65) % VBG Base Excess (0.0-2.0) mmol/L VBG Potassium (3.6-5.2) mmol/L Glucose (65-105) mg/dl Lactate (0.7-2.1) mmol/L FiO2 % Sodium 143 (132-148) mmol/L Potassium 2.5 L* D (3.6-5.0) mmol/L Chloride 114 H (98-107) mmol/L Carbon Dioxide 23 (21-33) mmol/L Anion Gap 9 L (10-20) BUN 17 (7-21) mg/dL Creatinine 1.1 (0.7-1.2) mg/dl Est GFR ( Amer) 59 Est GFR (Non-Af Amer) 49 POC Glucose (mg/dL) (65-110) mg/dL Random Glucose 246 H (70-110) mg/dL Calcium 6.2 L* (8.4-10.5) mg/dL Phosphorus 2.2 L (2.5-4.5) mg/dL Magnesium 1.9 (1.7-2.2) mg/dL Total Bilirubin 1.0 (0.2-1.3) mg/dL AST 28 (14-36) U/L ALT 32 (7-56) U/L Alkaline Phosphatase 108 (38-126) U/L Troponin I 1.12 H* D ng/mL Total Protein 4.6 L (5.8-8.3) g/dL Albumin 2.0 L (3.0-4.8) g/dL Globulin 2.5 gm/dL Albumin/Globulin Ratio 0.8 L (1.1-1.8) Triglycerides 119 (35-160) mg/dL Cholesterol 66 L (130-200) mg/dL LDL Cholesterol Direct < 30 (0-129) mg/dL HDL Cholesterol 30 (29-60) mg/dL Arterial Blood Potassium (3.6-5.2) mmol/L Venous Blood Potassium (3.6-5.2) mmol/L Influenza Typ A,B (EIA) (NEGATIVE) Blood Type Antibody Screen BBK History Checked 07/12/18 07/12/18 07/12/18 Range/Units 22:30 22:07 16:07 WBC (4.5-11.0) 10^3/uL RBC (3.5-6.1) 10^6/uL Hgb (12.0-16.0) g/dL Hct (36.0-48.0) % MCV (80.0-105.0) fl MCH (25.0-35.0) pg MCHC (31.0-37.0) g/dl RDW (11.5-14.5) % Plt Count (120.0-450.0) 10^3/uL Manual Plt Count (120-450) K/mm3 pCO2 (35-45) mm/Hg pO2 (30-55) mm/Hg HCO3 (21-28) mmol/L ABG pH (7.35-7.45) ABG Total CO2 (22-28) mmol.L ABG O2 Saturation (95-98) % ABG Base Excess (-2.0-3.0) mmol/L ABG Potassium (3.6-5.2) mmol/L VBG pH (7.32-7.43) VBG pCO2 (40-60) VBG HCO3 (21-28) mmol/l VBG Total CO2 (22-28) mmol.L VBG O2 Sat (Calc) (40-65) % VBG Base Excess (0.0-2.0) mmol/L VBG Potassium (3.6-5.2) mmol/L Glucose (65-105) mg/dl Lactate (0.7-2.1) mmol/L FiO2 % Sodium (132-148) mmol/L Potassium (3.6-5.0) mmol/L Chloride (98-107) mmol/L Carbon Dioxide (21-33) mmol/L Anion Gap (10-20) BUN (7-21) mg/dL Creatinine (0.7-1.2) mg/dl Est GFR ( Amer) Est GFR (Non-Af Amer) POC Glucose (mg/dL) 261 H 182 H (65-110) mg/dL Random Glucose (70-110) mg/dL Calcium (8.4-10.5) mg/dL Phosphorus (2.5-4.5) mg/dL Magnesium (1.7-2.2) mg/dL Total Bilirubin (0.2-1.3) mg/dL AST (14-36) U/L ALT (7-56) U/L Alkaline Phosphatase (38-126) U/L Troponin I ng/mL Total Protein (5.8-8.3) g/dL Albumin (3.0-4.8) g/dL Globulin gm/dL Albumin/Globulin Ratio (1.1-1.8) Triglycerides (35-160) mg/dL Cholesterol (130-200) mg/dL LDL Cholesterol Direct (0-129) mg/dL HDL Cholesterol (29-60) mg/dL Arterial Blood Potassium (3.6-5.2) mmol/L Venous Blood Potassium (3.6-5.2) mmol/L Influenza Typ A,B (EIA) Negative for flu a/b (NEGATIVE) Blood Type Antibody Screen BBK History Checked Laboratory Results - last 24 hr 07/12/18 07/12/18 07/12/18 16:07 22:07 22:30 WBC RBC Hgb Hct MCV MCH MCHC RDW Plt Count Manual Plt Count pCO2 pO2 HCO3 ABG pH ABG Total CO2 ABG O2 Saturation ABG Base Excess ABG Potassium VBG pH VBG pCO2 VBG HCO3 VBG Total CO2 VBG O2 Sat (Calc) VBG Base Excess VBG Potassium Glucose Lactate FiO2 Sodium Potassium Chloride Carbon Dioxide Anion Gap BUN Creatinine Est GFR ( Amer) Est GFR (Non-Af Amer) POC Glucose (mg/dL) 182 H 261 H Random Glucose Calcium Phosphorus Magnesium Total Bilirubin AST ALT Alkaline Phosphatase Troponin I Total Protein Albumin Globulin Albumin/Globulin Ratio Triglycerides Cholesterol LDL Cholesterol Direct HDL Cholesterol Arterial Blood Potassium Venous Blood Potassium Influenza Typ A,B (EIA) Negative for flu a/b Blood Type Antibody Screen BBK History Checked 07/13/18 07/13/18 07/13/18 05:00 05:30 05:30 WBC 22.8 H D RBC 3.06 L Hgb 9.4 L Hct 27.8 L MCV 90.8 MCH 30.7 MCHC 33.8 RDW 15.0 H Plt Count 33 L* Manual Plt Count pCO2 pO2 HCO3 ABG pH ABG Total CO2 ABG O2 Saturation ABG Base Excess ABG Potassium VBG pH VBG pCO2 VBG HCO3 VBG Total CO2 VBG O2 Sat (Calc) VBG Base Excess VBG Potassium Glucose Lactate FiO2 Sodium 143 Potassium 2.5 L* D Chloride 114 H Carbon Dioxide 23 Anion Gap 9 L BUN 17 Creatinine 1.1 Est GFR ( Amer) 59 Est GFR (Non-Af Amer) 49 POC Glucose (mg/dL) Random Glucose 246 H Calcium 6.2 L* Phosphorus 2.2 L Magnesium 1.9 Total Bilirubin 1.0 AST 28 ALT 32 Alkaline Phosphatase 108 Troponin I 1.12 H* D Total Protein 4.6 L Albumin 2.0 L Globulin 2.5 Albumin/Globulin Ratio 0.8 L Triglycerides 119 Cholesterol 66 L LDL Cholesterol Direct < 30 HDL Cholesterol 30 Arterial Blood Potassium Venous Blood Potassium Influenza Typ A,B (EIA) Blood Type Antibody Screen BBK History Checked 07/13/18 07/13/18 07/13/18 06:30 08:41 08:50 WBC RBC Hgb Hct MCV MCH MCHC RDW Plt Count Manual Plt Count 30 L* pCO2 pO2 HCO3 ABG pH ABG Total CO2 ABG O2 Saturation ABG Base Excess ABG Potassium VBG pH VBG pCO2 VBG HCO3 VBG Total CO2 VBG O2 Sat (Calc) VBG Base Excess VBG Potassium Glucose Lactate FiO2 Sodium Potassium Chloride Carbon Dioxide Anion Gap BUN Creatinine Est GFR ( Amer) Est GFR (Non-Af Amer) POC Glucose (mg/dL) 249 H Random Glucose Calcium Phosphorus Magnesium Total Bilirubin AST ALT Alkaline Phosphatase Troponin I Total Protein Albumin Globulin Albumin/Globulin Ratio Triglycerides Cholesterol LDL Cholesterol Direct HDL Cholesterol Arterial Blood Potassium Venous Blood Potassium Influenza Typ A,B (EIA) Blood Type A NEGATIVE Antibody Screen Negative BBK History Checked Patient has bt 07/13/18 07/13/18 07/13/18 09:20 11:30 12:33 WBC RBC Hgb Hct MCV MCH MCHC RDW Plt Count Manual Plt Count pCO2 33 L pO2 90 H 120.0 H HCO3 22.9 ABG pH 7.45 ABG Total CO2 23.9 ABG O2 Saturation 98.8 H ABG Base Excess -0.4 ABG Potassium 2.4 L* VBG pH 7.45 H VBG pCO2 34.0 L VBG HCO3 23.6 VBG Total CO2 24.6 VBG O2 Sat (Calc) 98.7 H VBG Base Excess 0.1 VBG Potassium 2.7 L Glucose 236 H 165 H Lactate 2.6 H 2.1 FiO2 21.0 32.0 Sodium 144.0 144.0 Potassium Chloride 115.0 H 117.0 H Carbon Dioxide Anion Gap BUN Creatinine Est GFR ( Amer) Est GFR (Non-Af Amer) POC Glucose (mg/dL) 164 H Random Glucose Calcium Phosphorus Magnesium Total Bilirubin AST ALT Alkaline Phosphatase Troponin I Total Protein Albumin Globulin Albumin/Globulin Ratio Triglycerides Cholesterol LDL Cholesterol Direct HDL Cholesterol Arterial Blood Potassium 2.4 L* Venous Blood Potassium 2.7 L Influenza Typ A,B (EIA) Blood Type Antibody Screen BBK History Checked Critical Care Progress Note - Nutrition Nutrition: Nutrition Category Date Time Status Diabetic [Consistent Carbohydrate] [DIET] Diets 07/11/18 Dinner Ordered Addendum Addendum: 07/13/18 15:57 ICU ATTENDING : Patent seen and examined with housestaff. Agree with progress note with following additions/exceptions: 72F with hx of recurrent nephrolithiasis, recurrent UTI/urosepsis, ureterovesicular reflux, DM2, Crohn's disease, h/o subdural hematoma, pancytopenia admitted to the MICU with septic shock likely urosepsis Renal US shows mulitple stones BL with mild hydronephrosis. Discussed case with Urology Dr Win and Dr. Valera (IR) who recommended holding off on intervention at this point. For now, she has rec'd enough fluid 30cc/kg (about 1800cc) Cont Levophed with vasopressin to augment the levo at a fixed rate of 0.03 now down to 10 of levophed broad abx as per ID covering Ecoli bactermia repeat bnlood cx monitor urineoutput monitor mental status, she is much more awake and alert today CT Head did show small SAH, given her low plat will transfuse to a goal of > 100 PPI for GI PPX Rest of care as above Arleth Chaparro MD Pulmonary, Critical Care and Sleep Medicine Critical Care TIme: 31 mins
--- NOTE | 2018-07-13 08:08 | CP.PCM.PN ---
<Cliff Vanegas - Last Filed: 07/13/18 12:38> Subjective - Date & Time of Evaluation Date of Evaluation: 07/13/18 Time of Evaluation: 10:00 - Subjective Subjective: Cliff Vanegas- Internal Medicine Resident- Consult Note on Behalf of Neurology Team Subjective: Patient seen and examined at bedside. No acute events overnight. Patient is awake and alert. Will not follow commands. Will not answer questions a ppropriately. 12 point ROS cannot be ascertained secondary to AMS Physical Examination: - Constitutional Appears: NAD - Head Exam Head Exam: ATRAUMATIC, NORMAL INSPECTION, NORMOCEPHALIC - Eye Exam Eye Exam: EOMI, Normal appearance, PERRL - ENT Exam ENT Exam: Mucous membranes dry, R central line - Respiratory Exam Respiratory Exam: Clear to Auscultation Bilateral. absent: Wheezes, Respiratory Distress, Stridor - Cardiovascular Exam Cardiovascular Exam: +S1, +S2 - GI/Abdominal Exam GI & Abdominal Exam: Soft. absent: Firm, Guarding - Extremities Exam Extremities exam: no clubbing, no cyanosis - Neurological Exam Neurological exam: awake, alert, responds to verbal stimuli, does not follow commands as instructed, does not answer questions appropriately - Skin Skin Exam: Dry, Intact, Normal Color, Warm Assessment and Plan: Patient is a 72 year old female with PMHx of recurrent nephrolithiasis, recurrent UTIs, ureterovesicular reflux, DM2, Crohn's disease, h/o subdural hematoma brought in by EMS for evaluation and treatment of fever/chills/diarrhea x 2days. Neurology team was consulted for management of subarachnoid hemorrhage found on imaging. SAH - 07/11/[address] without Contrast - Small amount of subarachnoid hemorrhage in the left frontal lobe. - 07/12/2018 CTA head and neck- Calcified intra cavernous segments of the internal carotid arteries - 07/12/2018 Brain MRI without contrast ordered and pending AMS - likely secondary to septic shock Patient seen, case discussed with, and plan approved by attending physician, Dr. Todd. Objective - Vital Signs/Intake and Output Vital Signs (last 24 hours): Temp Pulse Resp BP Pulse Ox 98.1 F 74 19 91/47 L 98 07/13/18 04:00 07/13/18 07:40 07/13/18 07:40 07/13/18 07:30 07/13/18 07:40 Intake and Output: 07/13/18 07/13/18 06:59 18:59 Intake Total 1867 Output Total 1150 Balance 717 - Medications Medications: Current Medications Meropenem (Merrem Iv 1 Gm Premix) 1 gm in 50 mls @ 100 mls/hr IVPB Q12 [facility]; Protocol Last Admin: 07/12/18 21:09 Dose: 100 mls/hr NOREPINEPHRINE BIT/0.9 % NACL (Levophed 4 Mg/ 250 Ml Ns Premixed) 4 mg in 250 mls @ 15 mls/hr IV .[id number] PRN; Protocol PRN Reason: TITRATE PER MD ORDER Last Titration: 07/13/18 06:00 Dose: 5 mcg/min, 18.75 mls/hr Vasopressin 20 units/ Sodium (Chloride) 101 mls @ 9.09 mls/hr IV .[id number] [facility]; Protocol Last Admin: 07/12/18 23:12 Dose: 9.09 mls/hr Lactated Ringer's (Lactated Ringer's) 500 mls @ 0 mls/hr IV .Q0M [facility] Sodium Bicarbonate 150 meq/ (Dextrose) 1,150 mls @ 100 mls/hr IV .[id number] [facility] Stop: 07/14/18 11:16 Last Admin: 07/12/18 23:14 Dose: 100 mls/hr Acetaminophen (Ofirmev) 1,000 mg in 100 mls @ 400 mls/hr IVPB Q6H PRN PRN Reason: Pain, moderate (4-7) Stop: 07/13/18 11:05 Dexmedetomidine HCl (Precedex 400mcg/100ml) 400 mcg in 100 mls @ 2.767 mls/hr IV .Q24H PRN; Protocol PRN Reason: Agitation Last Admin: 07/12/18 21:01 Dose: 0.2 mcg/kg/hr, 2.767 mls/hr Potassium Chloride (Potassium Chloride 20 Meq/100 Ml) 20 meq in 100 mls @ 50 mls/hr IVPB Q2H [facility] Stop: 07/13/18 12:59 Last Admin: 07/13/18 07:31 Dose: 50 mls/hr Potassium Phosphate 15 mmole/ (Sodium Chloride) 255 mls @ 42.5 mls/hr IVPB ONCE ONE Stop: 07/13/18 13:49 Calcium Gluconate 1,000 mg/ (Sodium Chloride) 110 mls @ 110 mls/hr IVPB ONCE ONE Stop: 07/13/18 08:50 Insulin Human Lispro (Humalog Med) 0 units SC ACHS [facility]; Protocol Morphine Sulfate (Morphine) 2 mg IVP Q6H PRN PRN Reason: Pain, severe (8-10) Last Admin: 07/12/18 18:05 Dose: 2 mg Ondansetron HCl (Zofran Inj) 4 mg IVP Q6H PRN PRN Reason: Nausea/Vomiting Last Admin: 07/12/18 06:20 Dose: 4 mg Pantoprazole Sodium (Protonix Inj) 40 mg IVP DAILY [facility] Last Admin: 07/12/18 11:05 Dose: Not Given - Labs Labs: 07/13/18 05:30 07/13/18 05:30 PT 16.3 SECONDS (9.4-12.5) H 07/11/18 05:30 INR 1.41 07/11/18 05:30 APTT 24.2 Seconds (25.1-36.5) L 07/11/18 05:30 <Navdeep Todd - Last Filed: 07/13/18 21:07> Objective - Vital Signs/Intake and Output Vital Signs (last 24 hours): Temp Pulse Resp BP Pulse Ox 98.1 F 81 17 93/55 L 99 07/13/18 16:50 07/13/18 16:40 07/13/18 16:30 07/13/18 16:30 07/13/18 16:30 Intake and Output: 07/13/18 07/14/18 18:59 06:59 Intake Total 433 2493 Output Total 950 Balance 433 1543 - Medications Medications: Current Medications Meropenem (Merrem Iv 1 Gm Premix) 1 gm in 50 mls @ 100 mls/hr IVPB Q12 [facility]; Protocol Last Admin: 07/13/18 09:35 Dose: 100 mls/hr NOREPINEPHRINE BIT/0.9 % NACL (Levophed 4 Mg/ 250 Ml Ns Premixed) 4 mg in 250 mls @ 15 mls/hr IV .[id number] PRN; Protocol PRN Reason: TITRATE PER MD ORDER Last Admin: 07/13/18 14:49 Dose: 7 mcg/min, 26.25 mls/hr Dexmedetomidine HCl (Precedex 400mcg/100ml) 400 mcg in 100 mls @ 2.767 mls/hr IV .Q24H PRN; Protocol PRN Reason: Agitation Last Admin: 07/13/18 13:28 Dose: 0.2 mcg/kg/hr, 2.767 mls/hr Sodium Chloride (Sodium Chloride 0.9%) 1,000 mls @ 60 mls/hr IV .[id number] [facility] Last Admin: 07/13/18 15:48 Dose: 60 mls/hr Potassium Chloride (Potassium Chloride 20 Meq/100 Ml) 20 meq in 100 mls @ 50 mls/hr IVPB Q2H [facility] Stop: 07/13/18 22:44 Last Admin: 07/13/18 18:49 Dose: 50 mls/hr Insulin Human Regular (Humulin R High) 0 units SC ACHS [facility]; Protocol Last Admin: 07/13/18 16:44 Dose: 2 u Morphine Sulfate (Morphine) 2 mg IVP Q6H PRN PRN Reason: Pain, severe (8-10) Last Admin: 07/12/18 18:05 Dose: 2 mg Ondansetron HCl (Zofran Inj) 4 mg IVP Q6H PRN PRN Reason: Nausea/Vomiting Last Admin: 07/12/18 06:20 Dose: 4 mg Pantoprazole Sodium (Protonix Inj) 40 mg IVP DAILY [facility] Last Admin: 07/13/18 09:40 Dose: 40 mg - Labs Labs: 07/13/18 05:30 07/13/18 16:26 PT 16.3 SECONDS (9.4-12.5) H 07/11/18 05:30 INR 1.41 07/11/18 05:30 APTT 24.2 Seconds (25.1-36.5) L 07/11/18 05:30 Assessment and Plan - Assessment and Plan (Free Text) Assessment: 72 yr old woman s/p subdural who is now stable, but not answering questions properly. We will continue to monitor her progress. Agree with resident's assessment and plan. Dr. todd
[2018-07-13 08:15] LABS: LDL CHOLESTEROL < 30 mg/dL (0-129)
[2018-07-13] MEDS ORDERED: Vancomycin 2 GM in Sodium Chloride 0.9% 500 ML IVPB ONE (08:35)
--- NOTE | 2018-07-13 08:56 | CP.PCM.PN ---
<Sivakumar Vázqeuz - Last Filed: 07/13/18 14:38> Subjective - Date & Time of Evaluation Date of Evaluation: 07/13/18 Time of Evaluation: 07:00 - Subjective Subjective: Sivakumar Vázquez, PGY1 Medicine Progress Note for Dr. Hoyos Patient was seen and examined at bedside this morning. She was responsive to sternal rub but was AAOx0. She opened her eyes but was not answering questions appropriately. ROS was unable to be obtained. Patient noted to have diarrhea yesterday as per nurse. Vital signs stable. Patients BP noted to be 100/44 during time of interview. Spoke to ICU team at bedside who was planning on d/c vasopressin as patients BP has been improved. Seen by speech language pathologist yesterday that says oral dysphagia and to c/w pureed diet. Objective - Vital Signs/Intake and Output Vital Signs (last 24 hours): Temp Pulse Resp BP Pulse Ox 98.1 F 74 19 91/47 L 98 07/13/18 04:00 07/13/18 07:40 07/13/18 07:40 07/13/18 07:30 07/13/18 07:40 Intake and Output: 07/13/18 07/13/18 06:59 18:59 Intake Total 1867 Output Total 1150 Balance 717 - Medications Medications: Current Medications Meropenem (Merrem Iv 1 Gm Premix) 1 gm in 50 mls @ 100 mls/hr IVPB Q12 [facility]; Protocol Last Admin: 07/12/18 21:09 Dose: 100 mls/hr NOREPINEPHRINE BIT/0.9 % NACL (Levophed 4 Mg/ 250 Ml Ns Premixed) 4 mg in 250 mls @ 15 mls/hr IV .[id number] PRN; Protocol PRN Reason: TITRATE PER MD ORDER Last Titration: 07/13/18 06:00 Dose: 5 mcg/min, 18.75 mls/hr Vasopressin 20 units/ Sodium (Chloride) 101 mls @ 9.09 mls/hr IV .[id number] [facility]; Protocol Last Admin: 07/12/18 23:12 Dose: 9.09 mls/hr Lactated Ringer's (Lactated Ringer's) 500 mls @ 0 mls/hr IV .Q0M [facility] Sodium Bicarbonate 150 meq/ (Dextrose) 1,150 mls @ 100 mls/hr IV .[id number] [facility] Stop: 07/14/18 11:16 Last Admin: 07/12/18 23:14 Dose: 100 mls/hr Acetaminophen (Ofirmev) 1,000 mg in 100 mls @ 400 mls/hr IVPB Q6H PRN PRN Reason: Pain, moderate (4-7) Stop: 07/13/18 11:05 Dexmedetomidine HCl (Precedex 400mcg/100ml) 400 mcg in 100 mls @ 2.767 mls/hr IV .Q24H PRN; Protocol PRN Reason: Agitation Last Admin: 07/12/18 21:01 Dose: 0.2 mcg/kg/hr, 2.767 mls/hr Potassium Chloride (Potassium Chloride 20 Meq/100 Ml) 20 meq in 100 mls @ 50 mls/hr IVPB Q2H [facility] Stop: 07/13/18 12:59 Last Admin: 07/13/18 07:31 Dose: 50 mls/hr Potassium Phosphate 15 mmole/ (Sodium Chloride) 255 mls @ 42.5 mls/hr IVPB ONCE ONE Stop: 07/13/18 13:49 Vancomycin HCl 2 gm/ Sodium (Chloride) 500 mls @ 170 mls/hr IVPB ONCE ONE; Protocol Stop: 07/13/18 11:31 Insulin Human Lispro (Humalog Med) 0 units SC [facility]; Protocol Morphine Sulfate (Morphine) 2 mg IVP Q6H PRN PRN Reason: Pain, severe (8-10) Last Admin: 07/12/18 18:05 Dose: 2 mg Ondansetron HCl (Zofran Inj) 4 mg IVP Q6H PRN PRN Reason: Nausea/Vomiting Last Admin: 07/12/18 06:20 Dose: 4 mg Pantoprazole Sodium (Protonix Inj) 40 mg IVP DAILY [facility] Last Admin: 07/12/18 11:05 Dose: Not Given - Labs Labs: 07/13/18 05:30 07/13/18 05:30 PT 16.3 SECONDS (9.4-12.5) H 07/11/18 05:30 INR 1.41 07/11/18 05:30 APTT 24.2 Seconds (25.1-36.5) L 07/11/18 05:30 - Constitutional Appears: Other (Lethargic) - Head Exam Head Exam: ATRAUMATIC, NORMAL INSPECTION, NORMOCEPHALIC - Eye Exam Eye Exam: EOMI, Normal appearance, PERRL - Respiratory Exam Respiratory Exam: Clear to Ausculation Bilateral, NORMAL BREATHING PATTERN. absent: Rales, Rhonchi, Wheezes - Cardiovascular Exam Cardiovascular Exam: REGULAR RHYTHM, +S1, +S2. absent: Murmur - GI/Abdominal Exam GI & Abdominal Exam: Soft, Normal Bowel Sounds. absent: Tenderness - Extremities Exam Extremities Exam: Full ROM, Normal Capillary Refill, Normal Inspection. absent: Joint Swelling, Pedal Edema - Neurological Exam Neurological Exam: absent: Alert, Awake, Oriented x3 - Skin Skin Exam: Dry, Intact, Normal Color, Warm Assessment and Plan - Assessment and Plan (Free Text) Assessment: Patient is a 72 y/o F with PMHx of recurrent nephrolithiasis, recurrent UTIs, ureterovesicular reflux, DM2, Crohn's disease, h/o subdural hematoma brought in by EMS to [facility] [place] with complaints of fever/chills/diarrhea x 2days. Patient was admitted to ICU for septic shock 2/2 Urosepsis. Neurology was consulted for subarachnoid hemorrhage on head CT. Patient also found to be bacteremic. Plan: AMS due to E. Coli Bacteremia in the setting of Septic Shock 2/2 Urosepsis with Hx of recurrent nephrolithiasis - Blood cx grew E. Coli - Urine cx grew Proteus mirabilis and enterococcus faecalis - C. Diff negative - MRSA negative - ID recs appreciated: give dose of IV vanco and c/w merrem; repeat blood cx and urine cx. Patient is unstable to undergo procedures. - Urology recs appreciated: patient is not a candidate for general anesthesia at this time due to septic shock. No hydronephrosis. - Abdomen/Pelvis CT (07/12): large stone in the R-renal pelvis measuring 24x32 mm. There are 3 separate 5 mm stones in the right distal ureter adjacent to the ureteral stent. There is a left ureteral stent. There is a 10 mm stone within within proximal pigtail. There is a 14 mm nonobstructing stone in the lower pole of the L-kidney. - Renal sono (07/11): b/l proximal ureteral stones, larger on right. Small b/l non-obstructing stones. - R-IJ central line placed by ICU team on 07/11 due to septic shock - c/w Levophed; d/c vasopressin since BP is improving; maintain MAP > 60 - Lactate 9.8 in ED, trending down to 2.1 today - improved - Nephrology recs appreciated. - UA + UTI NSTEMI - Cardio consulted. Follow up recs - Elevated troponin at 1.12 - EKG changes: sinus tachy with T wave depressions noted Hypokalemia - 2.5 today; started on IV potassium chloride - continue to replete as needed - 2.6 on admission - monitor Subarachnoid Hemorrhage - stable - Head/Neck CTA: unremarkable - Patient was given precedex prior to MRI due to agitation. During time of MRI, she was uncooperative. - Head CT (07/11): 1.5 cm subarachnoid hemorrhage in the left frontal lobe - Neuro consulted, recs appreciated. - NeuroSx was curbsided and no intervention at this time. Recommend medical management: Keep BP < 140/80, HOB > 35 degrees, seizure/fall precautions, swallow eval, PT/OT. - Patient has hx of subdural hematoma Leukocytosis - C. diff negative - wbc is 22.8, downtrending from 33 - monitor cbc - Patient was on high dose steroids at home, may contribute to leukocytosis Thrombocytopenia - Heme/onc consulted, f/u recs. - Platelets are 33 today. As per ICU, given x2 platelet transfusion - Patient has a hx of thrombocytopenia Hypocalcemia - Corrected calcium is 7.8 - Repleted HypoPhos - currently 2.2 - Neutrophos given - 1.3 on admission HypoMg - resolved - currently 1.9 - 1.5 on admission DVT ppx: SCD GI ppx: PTX Dispo: continue to monitor patient in the ICU. Case was discussed and reviewed with Attending Physician, Dr. Hoyos <Ila Hoyos - Last Filed: 07/13/18 15:11> Objective - Vital Signs/Intake and Output Vital Signs (last 24 hours): Temp Pulse Resp BP Pulse Ox 96.8 F L 86 19 98/60 L 99 07/13/18 09:27 07/13/18 13:59 07/13/18 13:59 07/13/18 14:00 07/13/18 13:59 Intake and Output: 07/13/18 07/13/18 06:59 18:59 Intake Total 1867 433 Output Total 1150 Balance 717 433 - Medications Medications: Current Medications Meropenem (Merrem Iv 1 Gm Premix) 1 gm in 50 mls @ 100 mls/hr IVPB Q12 [facility]; Protocol Last Admin: 07/13/18 09:35 Dose: 100 mls/hr NOREPINEPHRINE BIT/0.9 % NACL (Levophed 4 Mg/ 250 Ml Ns Premixed) 4 mg in 250 mls @ 15 mls/hr IV .[id number] PRN; Protocol PRN Reason: TITRATE PER MD ORDER Last Admin: 07/13/18 14:49 Dose: 7 mcg/min, 26.25 mls/hr Vasopressin 20 units/ Sodium (Chloride) 101 mls @ 9.09 mls/hr IV .Q11H7M [facility]; Protocol Last Admin: 07/12/18 23:12 Dose: 9.09 mls/hr Lactated Ringer's (Lactated Ringer's) 500 mls @ 0 mls/hr IV .Q0M [facility] Dexmedetomidine HCl (Precedex 400mcg/100ml) 400 mcg in 100 mls @ 2.767 mls/hr IV .Q24H PRN; Protocol PRN Reason: Agitation Last Admin: 07/13/18 13:28 Dose: 0.2 mcg/kg/hr, 2.767 mls/hr Calcium Gluconate 2,000 mg/ (Sodium Chloride) 120 mls @ 110 mls/hr IVPB ONCE ONE Stop: 07/13/18 16:07 Insulin Human Regular (Humulin R High) 0 units SC ACHS [facility]; Protocol Last Admin: 07/13/18 13:37 Dose: 1 u Morphine Sulfate (Morphine) 2 mg IVP Q6H PRN PRN Reason: Pain, severe (8-10) Last Admin: 07/12/18 18:05 Dose: 2 mg Ondansetron HCl (Zofran Inj) 4 mg IVP Q6H PRN PRN Reason: Nausea/Vomiting Last Admin: 07/12/18 06:20 Dose: 4 mg Pantoprazole Sodium (Protonix Inj) 40 mg IVP DAILY [facility] Last Admin: 07/13/18 09:40 Dose: 40 mg - Labs Labs: 07/13/18 05:30 07/13/18 05:30 PT 16.3 SECONDS (9.4-12.5) H 07/11/18 05:30 INR 1.41 07/11/18 05:30 APTT 24.2 Seconds (25.1-36.5) L 07/11/18 05:30 Attending/Attestation - Attestation I have personally seen and examined this patient.: Yes I have fully participated in the care of the patient.: Yes I have reviewed all pertinent clinical information, including history, physical exam and plan: Yes Notes (Text): 07/13/18 15:08 72 year old female with past medical history of UTI, nephrolithiasis, diabetes, and history of subdural hematoma who presented with fever and chills. She was found to have septic shock secondary to gram negative bacteremia and UTI and admitted to the ICU. BP did not respond initially to fluid resuscitation and she was started on pressors. Continue with iv antibiotics as per ID. Blood culture is growing E Coli x 2 and UCx is growing Proteus Mirabilis and Enterobacter Faecalis. CT abd/pelvis showed large stone (24x32 mm) in the right renal pelvis and 3 separate 5 mm stones in the right distal ureter adjacent to the ureteral stent; left ureteral stent with 10 mm ston within proximal pigtail; no hydronephrosis. Renal ultrasound showed bilateral proximal ureteral stones, larger on right; and small bilateral non-obstructing stones. Will follow up with urology recommendations. Patient also has significant leukocytosis yesterday which is improving today. CDif study was negative. CT head showed small amount of subarachnoid hemorrhage in the left frontal lobe. Neurosurgery was notified; no acute intervention. Neurology evaluation was appreciated who ordered MRI brain. Patient also has thrombocytopenia. Will continue to monitor closely and transfuse as needed. Hematology evaluation is requested. Also noted to have elevated troponin, possible NSTEMI. Cardiology is following. Patient is not candidate for aspirin or anticoagulation secondary to SAH and thrombocytopenia. Echocardiogram is ordered. Will replete and repeat lytes (potassium, magnesium and phosphorous). Overall prognosis is guarded. Ila Hoyos MD Hospitalist.
[2018-07-13 09:26] LABS: VENOUS BLOOD GAS BASE EXCESS 0.1 mmol/L (0.0-2.0); VENOUS BLOOD GAS PO2 90 mm/Hg (30-55); VENOUS BLOOD PH 7.45 (7.32-7.43)
[2018-07-13] MEDS: Meropenem IV 1 gm in NS 1 GM/50 ML BAG IVPB SCH ×2 (09:35→22:00)
[2018-07-13] MEDS: Dexmedetomidine 400mcg/100mL 400 MCG/100 ML BOTTLE IV PRN ×2 (10:05→13:28)
[2018-07-13] MEDS ORDERED: Iohexol 350 MG/100 ML VIAL ONE (10:35)
--- NOTE | 2018-07-13 10:59 | CP.PCM.PN ---
Subjective - Date & Time of Evaluation Date of Evaluation: 07/13/18 Time of Evaluation: 09:00 - Subjective Subjective: Continues to have low BP but is requiring less vasopressor support, a little more awake today, not in distress, no fevers overnight. Objective - Vital Signs/Intake and Output Vital Signs (last 24 hours): Temp Pulse Resp BP Pulse Ox 99.7 F H 93 H 27 H 101/48 L 95 07/11/18 18:03 07/12/18 07:45 07/12/18 07:40 07/12/18 07:45 07/12/18 07:45 Intake and Output: 07/12/18 07/12/18 06:59 18:59 Intake Total 500 100 Output Total 200 Balance 300 100 - Medications Medications: Current Medications Meropenem (Merrem Iv 1 Gm Premix) 1 gm in 50 mls @ 100 mls/hr IVPB Q12 AGNES; Protocol Last Admin: 07/11/18 22:08 Dose: 100 mls/hr Acetaminophen (Ofirmev) 1,000 mg in 100 mls @ 400 mls/hr IVPB Q6H PRN PRN Reason: Temperature Stop: 07/13/18 11:05 NOREPINEPHRINE BIT/0.9 % NACL (Levophed 4 Mg/ 250 Ml Ns Premixed) 4 mg in 250 mls @ 15 mls/hr IV .[id number] PRN; Protocol PRN Reason: TITRATE PER MD ORDER Last Titration: 07/12/18 07:00 Dose: 10 mcg/min, 37.5 mls/hr Vasopressin 20 units/ Sodium (Chloride) 101 mls @ 9.09 mls/hr IV .[id number] AGNES; Protocol Last Admin: 07/12/18 00:00 Dose: 9.09 mls/hr Lactated Ringer's (Lactated Ringer's) 500 mls @ 0 mls/hr IV .Q0M AGNES Ondansetron HCl (Zofran Inj) 4 mg IVP Q6H PRN PRN Reason: Nausea/Vomiting Last Admin: 07/12/18 06:20 Dose: 4 mg Pantoprazole Sodium (Protonix Inj) 40 mg IVP DAILY AGNES Last Admin: 07/12/18 08:48 Dose: 40 mg - Labs Labs: 07/12/18 08:10 07/12/18 08:10 PT 16.3 SECONDS (9.4-12.5) H 07/11/18 05:30 INR 1.41 07/11/18 05:30 APTT 24.2 Seconds (25.1-36.5) L 07/11/18 05:30 - Constitutional Appears: Cachectic, Chronically Ill - Head Exam Head Exam: NORMAL INSPECTION - Neck Exam Additional comments: right IJ TLC in place, clean and intact - Respiratory Exam Respiratory Exam: Decreased Breath Sounds - Cardiovascular Exam Cardiovascular Exam: +S1, +S2 - GI/Abdominal Exam GI & Abdominal Exam: Soft. absent: Tenderness Assessment and Plan - Assessment and Plan (Free Text) Plan: Assessment septic shock with acute renal failure, toxic-metabolic encephalopathy (on top of small left frontal lobe subarachnoid hemorrhage as seen on head CT) due to E. coli bacteremia, consider due to pyelonephritis in this patient with history of nephrolithiasis and obstructive uropathy, but also growing E. faecalis and Proteus in the urine, R/O infected nephrolithiasis history of severe sepsis probably due to urinary tract infection in a patient with a history of nephrolithiasis S/P pigtail catheter placement history of right sided pyelonephritis associated with nephrolithiasis with E. faecalis Crohn's disease DM history of pyelonephritis bilateral nephrolithiasis S/P cholecystectomy S/P tubal ligation Plan will continue patient on another dose of IV Vancomycin and continue Merrem and will repeat blood and urine cx reviewed CT A/P showing multiple kidney stones and ureteral stents reviewed Urology evaluation - agree that patient needs Urologic procedure but patient is still too unstable to undergo procedures will continue to monitor clinically prognosis is guarded at best
[2018-07-13 11:39] LABS: ARTERIAL BLOOD GAS HCO3 22.9 mmol/L (21-28); ARTERIAL BLOOD GAS O2 SAT 98.8 % (95-98); ARTERIAL BLOOD GAS PCO2 33 mm/Hg (35-45); ARTERIAL BLOOD GAS PH 7.45 (7.35-7.45); ARTERIAL BLOOD GAS TCO2 23.9 mmol.L (22-28)
--- NOTE | 2018-07-13 12:14 | CT ---
Date of service: 07/13/2018 PROCEDURE: CT Angiography of the neck with contrast HISTORY: ams COMPARISON: None. TECHNIQUE: Contiguous axial images of the neck were obtained from the level of the skull-base to the superior mediastinum in the arteriographic phase of enhancement. Coronal and sagittal reformats or also generated. IV contrast dose: 150 cc of Visipaque Radiation dose: Total exam DLP = 392.5 mGy-cm. This CT exam was performed using one or more of the following dose reduction techniques: Automated exposure control, adjustment of the mA and/or kV according to patient size, and/or use of iterative reconstruction technique. FINDINGS: RIGHT CAROTID ARTERIES: Common Carotid Artery: Normal. Carotid Bifurcation: Normal. Internal Carotid Artery:Normal. External Carotid Artery (proximal branches): Normal. LEFT CAROTID ARTERIES: Common Carotid Artery: Normal. Carotid Bifurcation: Normal. Internal Carotid Artery:Normal. External Carotid Artery (proximal branches): Normal. VERTEBRAL ARTERIES: Right Vertebral Artery: Normal. Left Vertebral Artery: Normal. OTHER FINDINGS: no aortic atherosclerotic calcification or mural plaque present. IMPRESSION: There is tortuosity of the internal carotid arteries without stenosis. CT Angiography of the Brain. HISTORY: ams COMPARISON: None available. TECHNIQUE: CT angiography of the intracranial arteries was performed. Coronal and sagittal maximum intensity projection reformated images were generated. Radiation dose: Total exam DLP = 392.5 mGy-cm. This CT exam was performed using one or more of the following dose reduction techniques: Automated exposure control, adjustment of the mA and/or kV according to patient size, and/or use of iterative reconstruction technique. FINDINGS: INTERNAL CEREBRAL ARTERIES: Unremarkable. The skull base, petrous, cavernous and supraclinoid segments are bilaterally widely patent. ANTERIOR CEREBRAL ARTERIES: Unremarkable. A1 and A2 segments are widely patent. Smaller distal branches unremarkable, as visualized. MIDDLE CEREBRAL ARTERIES: Unremarkable. M1 and M2 segments are widely patent. Perisylvian branches grossly symmetric. POSTERIOR CIRCULATION: Basilar Artery: Unremarkable. Distal Vertebral Arteries: Unremarkable. Posterior Cerebral Arteries: Unremarkable. Posterior Inferior Cerebellar Arteries: Unremarkable. ANEURYSM/ VASCULAR MALFORMATIONS: None. OTHER FINDINGS: None. IMPRESSION: Unremarkable CT Angiography of the Brain.
[2018-07-13] MEDS: Insulin Reg-HIGH-Coverage SC SCH ×3 (13:37→22:10)
[2018-07-13] MEDS ORDERED: Potassium & Sodium Phosphate PO ONE (14:30)
[2018-07-13] MEDS: Sodium Bicarbonate 8.4% 150 MEQ in Dextrose 5% In Water 1,000 ML IV SCH (14:46)
--- NOTE | 2018-07-13 15:37 | CP.PCM.PN ---
Subjective - Date & Time of Evaluation Date of Evaluation: 07/13/18 Time of Evaluation: 15:36 - Subjective Subjective: Nephrology Consultation Note: Assessment: critical CODY HAGMA with lactic acidosis Hypokalemia GNR sepsis with shock diabetes Mellitus ( years), b/l kidney stones and recurrent UTIs, gastric bypass surgery, UV reflux, crohns disease, splenomegaly, pancytopenia hypophosphatemia, hypokalemia subarachnoid hemorrhage Plan No acute need for renal replacement therapy at this time. Maintain hemodynamics stable. Avoid hypotension. Patient not on ACEI/ARB due to shock Monitor Input/Output, daily weights and renal function with basic metabolic panel d/c bicarb drip supplement lytes as needed renal sono reviewed. IR and urology involved check urine pro/cr and alb/cr legs compressive stockings Dose meds/antibiotics for reduced GFR. Avoid fleets enema/magnesium based laxatives. Avoid nephrotoxins/NSAIDs/ iodinated contrast (unless needed emergently) Glycemic control Further work up/management as per primary team Thanks for allowing me to participate in care of your patient. Will follow p atient with you. Please call if any Qs. had d/w team and family Dr Chad Jernigan Office: [phone] Chief Complaint; fever/chills Reason for consult: acidosis and hypokalemia HPI: Pt is a 72 F with hx of diabetes Mellitus ( years), b/l kidney stones and recurrent UTIs, ileum bypass surgery, UV reflux, crohn's disease, splenomegaly, pancytopenia ? HSP presented with complaints of fever and chhills, admitted to ICU with sepsis with shock requiring pressors and lactic acidosis. no knwon OTC/herbal meds or NSAIDs Noted recent iodinated contrast exposure. Noted obvious episodes of low BP. per , pt got sick for last couple of days ROS: pt unable to provide any hx Physical Examination: General Appearance: in no acute respiratory distress, ill appearing Vitals reviewed and noted as below Head; Atraumatic, normocephalic ENT: no ulcers no thrush. Tongue is midline. Oropharynx: no rash or ulcers. EYES: Pupils are equal, round and reactive to light accommodation. Eye muscles and extraocular movement intact. Sclera is anicteric. Neck; supple no lymphadenopathy, no thyromegaly or bruit Lungs: Normal respiratory rate/effort. Breath sounds bilateral equal and clear Heart: Increased rate. s1s2 normal. No rub or gallop. Extremities: 2+ edema. No varicose veins Neurological: Patient is unresponsive. Skin: Warm and dry. Normal turgor. No rash. Palpitation: Normal elasticity for age Abdomen: Abdomen is soft. Bowel sounds +. There is no abdominal tenderness, no guarding/rigidity no organomegaly Psych: unable MSK: no joint tenderness or swelling. Digits and nails normal, no deformity : kidney or bladder not palpable Labs/imaging reviewed. Past medical history, past surgical history, family history, social history, all ergy reviewed and noted as below Family hx: no hx of CKD. Rest non-contributory Objective - Vital Signs/Intake and Output Vital Signs (last 24 hours): Temp Pulse Resp BP Pulse Ox 96.8 F L 86 19 98/60 L 99 07/13/18 09:27 07/13/18 13:59 07/13/18 13:59 07/13/18 14:00 07/13/18 13:59 Intake and Output: 07/13/18 07/13/18 06:59 18:59 Intake Total 1867 433 Output Total 1150 Balance 717 433 - Medications Medications: Current Medications Meropenem (Merrem Iv 1 Gm Premix) 1 gm in 50 mls @ 100 mls/hr IVPB Q12 AGNES; Protocol Last Admin: 07/13/18 09:35 Dose: 100 mls/hr NOREPINEPHRINE BIT/0.9 % NACL (Levophed 4 Mg/ 250 Ml Ns Premixed) 4 mg in 250 mls @ 15 mls/hr IV .[id number] PRN; Protocol PRN Reason: TITRATE PER MD ORDER Last Admin: 07/13/18 14:49 Dose: 7 mcg/min, 26.25 mls/hr Vasopressin 20 units/ Sodium (Chloride) 101 mls @ 9.09 mls/hr IV .Q11H7M AGNES; Protocol Last Admin: 07/12/18 23:12 Dose: 9.09 mls/hr Lactated Ringer's (Lactated Ringer's) 500 mls @ 0 mls/hr IV .Q0M AGNES Dexmedetomidine HCl (Precedex 400mcg/100ml) 400 mcg in 100 mls @ 2.767 mls/hr IV .Q24H PRN; Protocol PRN Reason: Agitation Last Admin: 07/13/18 13:28 Dose: 0.2 mcg/kg/hr, 2.767 mls/hr Calcium Gluconate 2,000 mg/ (Sodium Chloride) 120 mls @ 110 mls/hr IVPB ONCE ONE Stop: 07/13/18 16:07 Insulin Human Regular (Humulin R High) 0 units SC ACHS AGNES; Protocol Last Admin: 07/13/18 13:37 Dose: 1 u Morphine Sulfate (Morphine) 2 mg IVP Q6H PRN PRN Reason: Pain, severe (8-10) Last Admin: 07/12/18 18:05 Dose: 2 mg Ondansetron HCl (Zofran Inj) 4 mg IVP Q6H PRN PRN Reason: Nausea/Vomiting Last Admin: 07/12/18 06:20 Dose: 4 mg Pantoprazole Sodium (Protonix Inj) 40 mg IVP DAILY [facility] Last Admin: 07/13/18 09:40 Dose: 40 mg - Labs Labs: 07/13/18 05:30 07/13/18 05:30 PT 16.3 SECONDS (9.4-12.5) H 07/11/18 05:30 INR 1.41 07/11/18 05:30 APTT 24.2 Seconds (25.1-36.5) L 07/11/18 05:30
[2018-07-13] MEDS ORDERED: Sodium Chloride 0.9% 1,000 ML IV SCH (15:45)
[2018-07-13 16:39] LABS: VENOUS BLOOD GAS BASE EXCESS 1.5 mmol/L (0.0-2.0); VENOUS BLOOD GAS PO2 50 mm/Hg (30-55); VENOUS BLOOD PH 7.43 (7.32-7.43)
[2018-07-13 17:23] LABS: ALB/GLOB RATIO 0.8 (1.1-1.8); ALBUMIN 2.1 g/dL (3.0-4.8); ALT/SGPT 32 U/L (7-56); AST/SGOT 25 U/L (14-36); BLOOD UREA NITROGEN 16 mg/dL (7-21); GFR NON-AFRICAN AMERICAN 55
--- NOTE | 2018-07-13 21:34 | CARD ---
APPROVED REPORT Date of service: 07/13/2018 EXAM: Two-dimensional and M-mode echocardiogram with Doppler and color Doppler. INDICATION IL 2D DIMENSIONS IVSd0.9 (0.7-1.1cm)LVDd5.2 (3.9-5.9cm) PWd0.9 (0.7-1.1cm)LVDs4.4 (2.5-4.0cm) FS (%) 14.7 %LVEF (%)30.8 (>50%) M-Mode DIMENSIONS Aortic Root3.90 (2.2-3.7cm)Aortic Cusp Exc.2.10 (1.5-2.0cm) Aortic Valve AoV Peak Opsvvczi248.0cm/[place] Peak GR.5mmHg Mitral Valve MV E Oeypgihw96.5cm/sMV A Itucbyyr20.9cm/sE/A ratio1.0 TDI Lateral E' Peak V12.30cm/sMedial E' Peak V5.95cm/sE/Lateral E'6.5 E/Medial E'13.4 Pulmonary Valve PV Peak Fgzlgkzz86.3cm/sPV Peak Grad.1mmHg Tricuspid Valve TR Peak Iwscgzvf116pg/sRAP [id number] Peak Gr.18mmHg [id number] LEFT VENTRICLE The left ventricle is normal size. There is normal left ventricular wall thickness. The systolic function is severely impaired. There is global hypokinesis of the left ventricle. Transmitral Doppler flow pattern is Grade I-abnormal relaxation pattern. No left ventricle thrombus noted on this study. RIGHT VENTRICLE The right ventricle is mildly dilated. There is normal right ventricular wall thickness. Systolic function is moderately reduced. ATRIA The left atrium is mildly dilated. The right atrium size is normal. AORTIC VALVE The aortic valve is mildly thickened. There is mild aortic regurgitation. There is no aortic valvular stenosis. MITRAL VALVE The mitral valve is mildly thickened. Mitral regurgitation is mild to moderate. TRICUSPID VALVE There is mild tricuspid regurgitation. PULMONIC VALVE There is mild pulmonic valvular regurgitation. GREAT VESSELS The aortic root is mildly enlarged. <Conclusion> The left ventricle is normal size. There is normal left ventricular wall thickness. The systolic function is severely impaired. There is global hypokinesis of the left ventricle. Transmitral Doppler flow pattern is Grade I-abnormal relaxation pattern. No left ventricle thrombus noted on this study. There is mild aortic regurgitation. Mitral regurgitation is mild to moderate. There is mild tricuspid regurgitation. The aortic root is mildly enlarged.
--- NOTE | 2018-07-14 00:31 | CON ---
DATE: 07/13/2018 HISTORY OF PRESENT ILLNESS: The patient is a 72-year-old female, who has a history of diabetes mellitus, recurrent UTI, history of Crohn's disease, renal stones, and subdural hematoma, who is admitted because of leg swelling, diarrhea, and low back pain. The patient was noted to have elevated troponin. The patient denies any chest pain. MEDICATIONS: The patient is on Levophed infusion for hypotension. She is on IV meropenem at 1 g every 12 hours and morphine sulfate 2 mg intravenously every 6 hours p.r.n., potassium phosphate intravenous replacement, Precedex infusion, Protonix 40 mg subcutaneously daily, vasopressin infusion, and Zofran 4 mg intravenously every 6 hours p.r.n. PAST MEDICAL HISTORY: Nephrolithiasis, recurrent UTI, ureterovesical reflux, Crohn's disease, history of subdural hematoma in the past, chronic low back pain. PHYSICAL EXAMINATION: GENERAL: The patient is an elderly female, who does not appear to be in acute distress at this time, but she is refusing to answer my questions and she appears confused to place. VITAL SIGNS: Blood pressure 91/47, heart rate 68, respirations 19, temperature 98.1. HEENT: Pale conjunctivae. NECK: No JVD. CHEST: Minimal basal rhonchi. HEART: S1 and S2, regular. EXTREMITIES: No edema. DIAGNOSTIC STUDIES: Chest x-ray revealed prominent bronchovascular markings bilaterally, right lower lobe infiltrate is a possibility, and internal jugular venous line is noted. EKG revealed sinus tachycardia with anterolateral ischemic T-wave changes and prolonged QT interval. Those EKG changes appear to be acute compared to the day before yesterday's EKG. LABORATORY DATA: Today's CBC: WBC 22.8, hemoglobin 9.4, hematocrit 27.8, and platelet count 33,000. Today's SMA-7: Sodium 143, potassium 2.5, chloride 114, CO2 of 23, glucose 146, BUN 17, creatinine 1.1, calcium is below normal at 6.2. Troponin is 1.12, earlier troponin was 3.66. Phosphorus 1.3, magnesium is 1.5. Echocardiographic study in 03/2017 revealed good LV function, mildly dilated left atrium, and no pulmonary hypertension. Head and neck CT angio, unremarkable CT angio of the brain. Abdomen and pelvic CT scan, a large stone in the right renal pelvis measuring 24 x 32 mm. There are three separate 3, 5, and 5 mm stones in the right distal ureter adjacent to the ureteral stent. There is a left ureteral stent. There is a 10-mm stone within the proximal pigtail. There is a 14 mm non-obstructing stone in the lower pole of the left kidney. Renal ultrasound, bilateral proximal ureteral stones, large one in the right, mild fullness in the collecting system, small bilateral non-obstructing stones. A jejunal biopsy done in 02/2018, no active inflammation identified on the duodenal biopsy or the jejunal biopsy, which increase in the intraepithelial lymphocytes. Blood culture is negative for E. coli and stool C. difficile is negative. ASSESSMENT: 1. Consider non-ST elevation myocardial infarction. 2. Worsening thrombocytopenia. 3. Hypokalemia, hypomagnesemia, hypocalcemia, and hypophosphatemia. 4. Bilateral nephrolithiasis. 5. Escherichia coli bacteremia and possibly septicemia. RECOMMENDATIONS: Continue current Levophed and vasopressin, continue IV meropenem, and continue IV potassium phosphate replacement. In view of worsening thrombocytopenia, neither antiplatelets nor anticoagulation are justified and the patient is not a suitable candidate for invasive cardiac workup at this time. I will obtain an echocardiographic study at the bedside. Cosmo Morfin MD
--- NOTE | 2018-07-14 02:16 | CON ---
DATE: 07/13/2018 GENITOURINARY CONSULTATION HISTORY OF PRESENT ILLNESS: The patient is seen in her room in the cardiac care unit. The patient is seen with family present. The patient is well known to me. She has a long history of kidney stone disease, recurrent episodes of urosepsis. She has indwelling stents. She had moved away from [place] about 1 year ago and was seen the urologist. She was scheduled to have a percutaneous nephrolithotomy. In the past year, the patient has had a few episodes of falling and has continued to lose weight. She had an old subarachnoid bleed as well as finding of a new subarachnoid bleed. She has been hospitalized for the past few days, came in with severe sepsis, hypotension. During hospitalization, initially I had discussed placement of bilateral nephrostomy tubes with Dr. Carter Valera. An initial ultrasound was done, which showed some left mild hydronephrosis. There is no significant dilation of the right system. There is a large right renal pelvic stone noted. The patient has a known history of left vesicoureteral reflux which may explain the left hydronephrosis. The patient has been treated with fluids, antibiotics, and blood pressure support. Currently, she is still on Levophed and still hypotensive. The patient had a CT scan of the abdomen and pelvis and was found to have ureteral stents in place. I discussed with her family, and the stents are approximately 3-4 months old. They had been placed in [facility]. After they had been initially removed, the patient had an episode of sepsis and the stents were replaced. The patient is scheduled to follow up there soon regarding her upcoming surgery. However, this episode has preempted that for now. In the past few days, the patient's blood pressure has stabilized and somewhat improved, although she still remains hypotensive and tachycardic. PAST MEDICAL HISTORY: Significant for recurrent urosepsis, kidney stones, weight loss, Crohn's disease, gastric bypass, question of malaria and dengue infection. PAST SURGICAL HISTORY: Ureteral stents, cholecystectomy, appendectomy, and ORIF of hip fracture. ALLERGIES: ALLERGIC TO LATEX, CASHEW NUTS, NAPROSYN, AND CATS. MEDICATIONS: Currently include, insulin coverage, IV fluids, Levophed, meropenem, morphine, Precedex, Protonix, vasopressin, and Zofran. FAMILY HISTORY: Noncontributory for this admission. SOCIAL HISTORY: No smoking or EtOH use. REVIEW OF SYSTEMS: Could not be obtained from the patient, but are positive as per the history of present illness. PHYSICAL EXAMINATION: GENERAL: The patient is obtunded and only arousable with stimulation. The patient is sleeping, but arousable with stimuli, although not fully arousable. She is in no obvious acute distress. VITAL SIGNS: Blood pressure still remains about 90 systolic over 60 diastolic on pressure support, pulse running about 110-120, respirations 26. NECK: Shows no obvious mass. Respirations, increased respiratory rate, breathing somewhat shallow. CARDIAC: Tachycardic. No peripheral edema. ABDOMINAL: The abdomen is soft, nontender. There appears to be no rebound or guarding. It appears no current CVA tenderness. EXTREMITIES: There is no cyanosis or edema noted. LABORATORY DATA: On laboratory exam, WBC count initially was low, then jumped up to 33, now has come down to 22. Creatinine 1.1 with a GFR of 49. Troponin-I elevated. On radiologic exam, the patient had a CT scan, again showing a large stone in the right renal pelvis, measuring 2.4 x 3.2 cm. There are multiple stones in the ureter adjacent to the ureteral stent. There is a left ureteral stent present as well, 10 mm stone in the kidney with 14 mm stone in the lower pole. Zendejas catheter noted in the bladder. IMPRESSION AND PLAN: This is a patient, well known to me, with recurrent urosepsis. Urine has grown Proteus mirabilis and Enterococcus, and blood cultures are positive for E-coli. I discussed this with the intensive care unit attending. He is going to discuss with the Infectious Disease whether there is another source that we are possibly missing. Although, this does appear to be urosepsis. He will also discuss the remote history of viral borne illness as possibly contributing to the patient's condition. The patient appears adequately drained with ureteral stents in place. I had discussed with Dr. Valera. If there is any possibility of urinary obstruction worsening this acute sepsis, we should consider placement of bilateral percutaneous nephrostomy tubes. The patient's platelet count is very low, and she would need to have platelet transfusion prior to this procedure being done. Other than that, I would recommend continued treatment for urosepsis. Continue Neurology and evaluation of the subarachnoid bleed. Continue infectious disease input regarding her sepsis and search for possible other sources. I will continue to follow this patient with you. Miguel Win MD
[2018-07-14] MEDS: Dexmedetomidine 400mcg/100mL 400 MCG/100 ML BOTTLE IV PRN (06:40)
[2018-07-14 06:49] LABS: HEMOGLOBIN 10.2 g/dL (12.0-16.0); MEAN CELL VOLUME 93.5 fl (80.0-105.0); MEAN CORPUSCULAR HEMOGLOBIN 31.5 pg (25.0-35.0); MEAN CORPUSCULAR HGB CONC 33.7 g/dl (31.0-37.0); RBC 3.24 10^6/uL (3.5-6.1); RED CELL DISTRIBUTION WIDTH 15.2 % (11.5-14.5); WHITE BLOOD COUNT 20.1 10^3/uL (4.5-11.0)
[2018-07-14 06:51] LABS: PLATELET COUNT 34 10^3/uL (120.0-450.0)
[2018-07-14] MEDS: Insulin Reg-HIGH-Coverage SC SCH ×4 (07:38→22:19)
[2018-07-14 07:40] LABS: ALB/GLOB RATIO 0.9 (1.1-1.8); ALBUMIN 2.3 g/dL (3.0-4.8); CALCIUM 6.1 mg/dL (8.4-10.5)
--- NOTE | 2018-07-14 09:09 | CP.CCUPN ---
<Beau Castellanos - Last Filed: 07/14/18 09:34> CCU Subjective - Physician Review Subjective (Free Text): CRITICAL CARE PROGRESS NOTE FOR DR. ANTHONY Castellanos PGY-1 Pt seen and examined at bedside this am. She is arousable, however does not respond to ROS or questions. She is currently on 5mcg/kg levophed and 0.2 mcg/kh/hr precedex. She was unable to complete her MRI yesterday d/t agitation. CCU Objective - Vital Signs / Intake & Output Vital Signs (Last 4 hours): Vital Signs Pulse Resp BP Pulse Ox 07/14/18 07:00 73 21 120/68 97 07/14/18 06:30 64 20 116/64 98 07/14/18 06:00 64 20 114/61 98 07/14/18 05:30 65 20 118/64 97 Intake and Output (Last 8hrs): Intake & Output 07/13/18 07/14/18 07/14/18 22:59 06:59 14:59 Intake Total 2493 350 150 Output Total 950 600 Balance 1543 -250 150 Intake: IV 2493 350 150 Right Antecubital 297 Right Internal Jugular 2196 Output: Urine 950 600 Urethral (Zendejas) 950 600 Stool 0 - Physical Exam Head: Positive for: Atraumatic, Normocephalic Pupils: Positive for: PERRL Extroacular Muscles: Positive for: EOMI Conjunctiva: Positive for: Normal Mouth: Positive for: Moist Mucous Membranes Neck: Positive for: Normal Range of Motion Respiratory/Chest: Positive for: Clear to Auscultation, Good Air Exchange. Negative for: Respiratory Distress, Accessory Muscle Use Cardiovascular: Positive for: Regular Rate and Rhythm, Normal S1, S2. Negative for: Murmurs Abdomen: Negative for: Tenderness, Distention, Peritoneal Signs Back: Positive for: Normal Inspection Upper Extremity: Positive for: Normal Inspection. Negative for: Cyanosis, Edema Lower Extremity: Positive for: Swelling (Swelling to ankles bilaterally). Negative for: Edema Neurological: Positive for: GCS=15, CN II-XII Intact, Speech Normal Skin: Positive for: Dry, Normal Color, Hot (to touch). Negative for: Rashes Psychiatric: Positive for: Alert, Oriented x 3, Normal Insight, Normal Concentration - Medications Active Medications: Active Medications Generic Name Dose Route Start Last Admin Trade Name Freq PRN Reason Stop Dose Admin Meropenem 1 gm in 50 mls @ 100 mls/hr 07/11/18 10:30 07/13/18 22:00 Merrem Iv 1 Gm Premix IVPB 100 mls/hr Q12 AGNES Administration Protocol NOREPINEPHRINE BIT/0.9 % NACL 4 mg in 250 mls @ 15 mls/hr 07/11/18 11:47 07/14/18 07:35 Levophed 4 Mg/ 250 Ml Ns Premixed IV 5 mcg/min .[id number] PRN 18.75 mls/hr TITRATE PER MD ORDER Titration Protocol 4 MCG/MIN Dexmedetomidine HCl 400 mcg in 100 mls @ 2.767 mls/hr 07/12/18 18:19 07/14/18 06:40 Precedex 400mcg/100ml IV 0.2 mcg/kg/hr .Q24H PRN 2.767 mls/hr Agitation Administration Protocol 0.2 MCG/KG/HR Sodium Chloride 1,000 mls @ 60 mls/hr 07/13/18 15:45 07/13/18 15:48 Sodium Chloride 0.9% IV 60 mls/hr .[id number] AGNES Administration Insulin Human Regular 0 units 07/13/18 11:30 07/14/18 07:38 Humulin R High SC Not Given ACHS [facility] Protocol Midodrine 5 mg 07/14/18 10:00 Proamatine PO TID [facility] Morphine Sulfate 2 mg 07/12/18 17:27 07/12/18 18:05 Morphine IVP 2 mg Q6H PRN Administration Pain, severe (8-10) Ondansetron HCl 4 mg 07/12/18 06:07 07/12/18 06:20 Zofran Inj IVP 4 mg Q6H PRN Administration Nausea/Vomiting Pantoprazole Sodium 40 mg 07/11/18 16:00 07/13/18 09:40 Protonix Inj IVP 40 mg DAILY AGNES Administration - Patient Studies Lab Studies: Microbiology Studies 07/12/18 15:19 C. difficile Antigen & Toxins A,B - Final Stool 07/11/18 05:30 Blood Culture - Final Blood Escherichia Coli Gram Stain - Final 07/11/18 05:30 Blood Culture - Final Blood Escherichia Coli Gram Stain - Final 07/11/18 04:30 Urine Culture - Final Urine,Clean Catch Proteus Mirabilis Enterococcus Faecalis Lab Studies 07/14/18 07/14/18 07/13/18 Range/Units 06:00 06:00 21:33 WBC 20.1 H (4.5-11.0) 10^3/uL RBC 3.24 L (3.5-6.1) 10^6/uL Hgb 10.2 L (12.0-16.0) g/dL Hct 30.3 L (36.0-48.0) % MCV 93.5 (80.0-105.0) fl MCH 31.5 (25.0-35.0) pg MCHC 33.7 (31.0-37.0) g/dl RDW 15.2 H (11.5-14.5) % Plt Count 34 L* (120.0-450.0) 10^3/uL Manual Plt Count (120-450) K/mm3 pCO2 (35-45) mm/Hg pO2 (30-55) mm/Hg HCO3 (21-28) mmol/L ABG pH (7.35-7.45) ABG Total CO2 (22-28) mmol.L ABG O2 Saturation (95-98) % ABG Base Excess (-2.0-3.0) mmol/L ABG Potassium (3.6-5.2) mmol/L VBG pH (7.32-7.43) VBG pCO2 (40-60) VBG HCO3 (21-28) mmol/l VBG Total CO2 (22-28) mmol.L VBG O2 Sat (Calc) (40-65) % VBG Base Excess (0.0-2.0) mmol/L VBG Potassium (3.6-5.2) mmol/L Sodium 145 (132-148) mmol/L Chloride 117 H (98-107) mmol/L Glucose (65-105) mg/dl Lactate (0.7-2.1) mmol/L FiO2 % Potassium 3.6 (3.6-5.0) mmol/L Carbon Dioxide 21 (21-33) mmol/L Anion Gap 11 (10-20) BUN 18 (7-21) mg/dL Creatinine 1.1 (0.7-1.2) mg/dl Est GFR ( Amer) 59 Est GFR (Non-Af Amer) 49 POC Glucose (mg/dL) 131 H (65-110) mg/dL Random Glucose 125 H (70-110) mg/dL Calcium 6.1 L* (8.4-10.5) mg/dL Phosphorus 2.6 (2.5-4.5) mg/dL Magnesium 1.7 (1.7-2.2) mg/dL Total Bilirubin 1.3 (0.2-1.3) mg/dL AST 32 (14-36) U/L ALT 38 (7-56) U/L Alkaline Phosphatase 142 H D (38-126) U/L Total Protein 4.9 L (5.8-8.3) g/dL Albumin 2.3 L (3.0-4.8) g/dL Globulin 2.6 gm/dL Albumin/Globulin Ratio 0.9 L (1.1-1.8) Arterial Blood Potassium (3.6-5.2) mmol/L Venous Blood Potassium (3.6-5.2) mmol/L Blood Type Antibody Screen BBK History Checked 07/13/18 07/13/18 07/13/18 Range/Units 16:26 16:26 16:08 WBC (4.5-11.0) 10^3/uL RBC (3.5-6.1) 10^6/uL Hgb (12.0-16.0) g/dL Hct (36.0-48.0) % MCV (80.0-105.0) fl MCH (25.0-35.0) pg MCHC (31.0-37.0) g/dl RDW (11.5-14.5) % Plt Count (120.0-450.0) 10^3/uL Manual Plt Count (120-450) K/mm3 pCO2 (35-45) mm/Hg pO2 50 (30-55) mm/Hg HCO3 (21-28) mmol/L ABG pH (7.35-7.45) ABG Total CO2 (22-28) mmol.L ABG O2 Saturation (95-98) % ABG Base Excess (-2.0-3.0) mmol/L ABG Potassium (3.6-5.2) mmol/L VBG pH 7.43 (7.32-7.43) VBG pCO2 39.0 L (40-60) VBG HCO3 25.9 (21-28) mmol/l VBG Total CO2 27.1 (22-28) mmol.L VBG O2 Sat (Calc) 91.7 H (40-65) % VBG Base Excess 1.5 (0.0-2.0) mmol/L VBG Potassium 3.3 L (3.6-5.2) mmol/L Sodium 145 145.0 (132-148) mmol/L Chloride 114 H 115.0 H (98-107) mmol/L Glucose 167 H (65-105) mg/dl Lactate 1.7 (0.7-2.1) mmol/L FiO2 21.0 % Potassium 3.3 L (3.6-5.0) mmol/L Carbon Dioxide 25 (21-33) mmol/L Anion Gap 9 L (10-20) BUN 16 (7-21) mg/dL Creatinine 1.0 (0.7-1.2) mg/dl Est GFR ( Amer) > 60 Est GFR (Non-Af Amer) 55 POC Glucose (mg/dL) 169 H (65-110) mg/dL Random Glucose 155 H (70-110) mg/dL Calcium 6.0 L* (8.4-10.5) mg/dL Phosphorus 2.5 (2.5-4.5) mg/dL Magnesium 1.8 (1.7-2.2) mg/dL Total Bilirubin 1.6 H (0.2-1.3) mg/dL AST 25 (14-36) U/L ALT 32 (7-56) U/L Alkaline Phosphatase 115 (38-126) U/L Total Protein 4.6 L (5.8-8.3) g/dL Albumin 2.1 L (3.0-4.8) g/dL Globulin 2.5 gm/dL Albumin/Globulin Ratio 0.8 L (1.1-1.8) Arterial Blood Potassium (3.6-5.2) mmol/L Venous Blood Potassium 3.3 L (3.6-5.2) mmol/L Blood Type Antibody Screen BBK History Checked 07/13/18 07/13/18 07/13/18 Range/Units 12:33 11:30 09:20 WBC (4.5-11.0) 10^3/uL RBC (3.5-6.1) 10^6/uL Hgb (12.0-16.0) g/dL Hct (36.0-48.0) % MCV (80.0-105.0) fl MCH (25.0-35.0) pg MCHC (31.0-37.0) g/dl RDW (11.5-14.5) % Plt Count (120.0-450.0) 10^3/uL Manual Plt Count (120-450) K/mm3 pCO2 33 L (35-45) mm/Hg pO2 120.0 H 90 H (30-55) mm/Hg HCO3 22.9 (21-28) mmol/L ABG pH 7.45 (7.35-7.45) ABG Total CO2 23.9 (22-28) mmol.L ABG O2 Saturation 98.8 H (95-98) % ABG Base Excess -0.4 (-2.0-3.0) mmol/L ABG Potassium 2.4 L* (3.6-5.2) mmol/L VBG pH 7.45 H (7.32-7.43) VBG pCO2 34.0 L (40-60) VBG HCO3 23.6 (21-28) mmol/l VBG Total CO2 24.6 (22-28) mmol.L VBG O2 Sat (Calc) 98.7 H (40-65) % VBG Base Excess 0.1 (0.0-2.0) mmol/L VBG Potassium 2.7 L (3.6-5.2) mmol/L Sodium 144.0 144.0 (132-148) mmol/L Chloride 117.0 H 115.0 H (98-107) mmol/L Glucose 165 H 236 H (65-105) mg/dl Lactate 2.1 2.6 H (0.7-2.1) mmol/L FiO2 32.0 21.0 % Potassium (3.6-5.0) mmol/L Carbon Dioxide (21-33) mmol/L Anion Gap (10-20) BUN (7-21) mg/dL Creatinine (0.7-1.2) mg/dl Est GFR ( Amer) Est GFR (Non-Af Amer) POC Glucose (mg/dL) 164 H (65-110) mg/dL Random Glucose (70-110) mg/dL Calcium (8.4-10.5) mg/dL Phosphorus (2.5-4.5) mg/dL Magnesium (1.7-2.2) mg/dL Total Bilirubin (0.2-1.3) mg/dL AST (14-36) U/L ALT (7-56) U/L Alkaline Phosphatase (38-126) U/L Total Protein (5.8-8.3) g/dL Albumin (3.0-4.8) g/dL Globulin gm/dL Albumin/Globulin Ratio (1.1-1.8) Arterial Blood Potassium 2.4 L* (3.6-5.2) mmol/L Venous Blood Potassium 2.7 L (3.6-5.2) mmol/L Blood Type Antibody Screen BBK History Checked 07/13/18 07/13/18 Range/Units 08:50 06:30 WBC (4.5-11.0) 10^3/uL RBC (3.5-6.1) 10^6/uL Hgb (12.0-16.0) g/dL Hct (36.0-48.0) % MCV (80.0-105.0) fl MCH (25.0-35.0) pg MCHC (31.0-37.0) g/dl RDW (11.5-14.5) % Plt Count (120.0-450.0) 10^3/uL Manual Plt Count 30 L* (120-450) K/mm3 pCO2 (35-45) mm/Hg pO2 (30-55) mm/Hg HCO3 (21-28) mmol/L ABG pH (7.35-7.45) ABG Total CO2 (22-28) mmol.L ABG O2 Saturation (95-98) % ABG Base Excess (-2.0-3.0) mmol/L ABG Potassium (3.6-5.2) mmol/L VBG pH (7.32-7.43) VBG pCO2 (40-60) VBG HCO3 (21-28) mmol/l VBG Total CO2 (22-28) mmol.L VBG O2 Sat (Calc) (40-65) % VBG Base Excess (0.0-2.0) mmol/L VBG Potassium (3.6-5.2) mmol/L Sodium (132-148) mmol/L Chloride (98-107) mmol/L Glucose (65-105) mg/dl Lactate (0.7-2.1) mmol/L FiO2 % Potassium (3.6-5.0) mmol/L Carbon Dioxide (21-33) mmol/L Anion Gap (10-20) BUN (7-21) mg/dL Creatinine (0.7-1.2) mg/dl Est GFR ( Amer) Est GFR (Non-Af Amer) POC Glucose (mg/dL) (65-110) mg/dL Random Glucose (70-110) mg/dL Calcium (8.4-10.5) mg/dL Phosphorus (2.5-4.5) mg/dL Magnesium (1.7-2.2) mg/dL Total Bilirubin (0.2-1.3) mg/dL AST (14-36) U/L ALT (7-56) U/L Alkaline Phosphatase (38-126) U/L Total Protein (5.8-8.3) g/dL Albumin (3.0-4.8) g/dL Globulin gm/dL Albumin/Globulin Ratio (1.1-1.8) Arterial Blood Potassium (3.6-5.2) mmol/L Venous Blood Potassium (3.6-5.2) mmol/L Blood Type A NEGATIVE Antibody Screen Negative BBK History Checked Patient has bt Laboratory Results - last 24 hr 07/13/18 07/13/18 07/13/18 06:30 08:50 09:20 WBC RBC Hgb Hct MCV MCH MCHC RDW Plt Count Manual Plt Count 30 L* pCO2 pO2 90 H HCO3 ABG pH ABG Total CO2 ABG O2 Saturation ABG Base Excess ABG Potassium VBG pH 7.45 H VBG pCO2 34.0 L VBG HCO3 23.6 VBG Total CO2 24.6 VBG O2 Sat (Calc) 98.7 H VBG Base Excess 0.1 VBG Potassium 2.7 L Sodium 144.0 Chloride 115.0 H Glucose 236 H Lactate 2.6 H FiO2 21.0 Potassium Carbon Dioxide Anion Gap BUN Creatinine Est GFR ( Amer) Est GFR (Non-Af Amer) POC Glucose (mg/dL) Random Glucose Calcium Phosphorus Magnesium Total Bilirubin AST ALT Alkaline Phosphatase Total Protein Albumin Globulin Albumin/Globulin Ratio Arterial Blood Potassium Venous Blood Potassium 2.7 L Blood Type A NEGATIVE Antibody Screen Negative BBK History Checked Patient has bt 07/13/18 07/13/18 07/13/18 11:30 12:33 16:08 WBC RBC Hgb Hct MCV MCH MCHC RDW Plt Count Manual Plt Count pCO2 33 L pO2 120.0 H HCO3 22.9 ABG pH 7.45 ABG Total CO2 23.9 ABG O2 Saturation 98.8 H ABG Base Excess -0.4 ABG Potassium 2.4 L* VBG pH VBG pCO2 VBG HCO3 VBG Total CO2 VBG O2 Sat (Calc) VBG Base Excess VBG Potassium Sodium 144.0 Chloride 117.0 H Glucose 165 H Lactate 2.1 FiO2 32.0 Potassium Carbon Dioxide Anion Gap BUN Creatinine Est GFR ( Amer) Est GFR (Non-Af Amer) POC Glucose (mg/dL) 164 H 169 H Random Glucose Calcium Phosphorus Magnesium Total Bilirubin AST ALT Alkaline Phosphatase Total Protein Albumin Globulin Albumin/Globulin Ratio Arterial Blood Potassium 2.4 L* Venous Blood Potassium Blood Type Antibody Screen BBK History Checked 07/13/18 07/13/18 07/13/18 16:26 16:26 21:33 WBC RBC Hgb Hct MCV MCH MCHC RDW Plt Count Manual Plt Count pCO2 pO2 50 HCO3 ABG pH ABG Total CO2 ABG O2 Saturation ABG Base Excess ABG Potassium VBG pH 7.43 VBG pCO2 39.0 L VBG HCO3 25.9 VBG Total CO2 27.1 VBG O2 Sat (Calc) 91.7 H VBG Base Excess 1.5 VBG Potassium 3.3 L Sodium 145.0 145 Chloride 115.0 H 114 H Glucose 167 H Lactate 1.7 FiO2 21.0 Potassium 3.3 L Carbon Dioxide 25 Anion Gap 9 L BUN 16 Creatinine 1.0 Est GFR ( Amer) > 60 Est GFR (Non-Af Amer) 55 POC Glucose (mg/dL) 131 H Random Glucose 155 H Calcium 6.0 L* Phosphorus 2.5 Magnesium 1.8 Total Bilirubin 1.6 H AST 25 ALT 32 Alkaline Phosphatase 115 Total Protein 4.6 L Albumin 2.1 L Globulin 2.5 Albumin/Globulin Ratio 0.8 L Arterial Blood Potassium Venous Blood Potassium 3.3 L Blood Type Antibody Screen BBK History Checked 07/14/18 07/14/18 06:00 06:00 WBC 20.1 H RBC 3.24 L Hgb 10.2 L Hct 30.3 L MCV 93.5 MCH 31.5 MCHC 33.7 RDW 15.2 H Plt Count 34 L* Manual Plt Count pCO2 pO2 HCO3 ABG pH ABG Total CO2 ABG O2 Saturation ABG Base Excess ABG Potassium VBG pH VBG pCO2 VBG HCO3 VBG Total CO2 VBG O2 Sat (Calc) VBG Base Excess VBG Potassium Sodium 145 Chloride 117 H Glucose Lactate FiO2 Potassium 3.6 Carbon Dioxide 21 Anion Gap 11 BUN 18 Creatinine 1.1 Est GFR ( Amer) 59 Est GFR (Non-Af Amer) 49 POC Glucose (mg/dL) Random Glucose 125 H Calcium 6.1 L* Phosphorus 2.6 Magnesium 1.7 Total Bilirubin 1.3 AST 32 ALT 38 Alkaline Phosphatase 142 H D Total Protein 4.9 L Albumin 2.3 L Globulin 2.6 Albumin/Globulin Ratio 0.9 L Arterial Blood Potassium Venous Blood Potassium Blood Type Antibody Screen BBK History Checked Fingerstick Blood Sugar Results: 116 Review of Systems - Review of Systems Review of Systems: per HPI Critical Care Progress Note - Nutrition Nutrition: Nutrition Category Date Time Status Diabetic [Consistent Carbohydrate] [DIET] Diets 07/11/18 Dinner Ordered Assessment/Plan - Assessment and Plan (Free Text) Assessment: 72 y/o F with PMHx of recurrent nephrolithiasis, recurrent UTI/urosepsis with indwelling stents, L vesicoureteral reflux, DM2, Crohn's disease, h/o subdural hematoma, pancytopenia admitted to ICU for septic shock, likely secondary to urosepsis in the setting of recurrent nephrolithiasis and ureterovesicular reflux. Plan: Neuro: AxO x 0 [id number] Confused/Disoriented this am. Monitor mental status Continue precedex drip Continue levophed Will start midodrine 5mg po tid to transition to oral -Subarachnoid hemorrhage Administer 2u platelets stat MRI planned for today. Precedex onboard for agitation CT Head: Generalized parenchymal atrophy noted as demonstrated by symmetrical dilation of ventricles and sulci. Chronic periventricular and subcortical microvascular disease is seen. Hyperdense left frontal collection is present consistent with subarachnoid hemorrhage, measuring approximately 1.5cm. No midline shift Per neurosurgery: No surgical intervention Maintain BP <140/90 Reorient frequently Cardiovascular: currently hypotensive @ 90s/40s BP non-responsive to fluid resuscitation R IJ triple lumen catheter in place 5 mcg/min norepinephrine Start midodrine 5mg po tid, transition to oral vasopressor Discontinue vasopressin Echo reveals reduced LVEF: 39% No cardiac intervention at this time d/t thrombocytopenia Maintain MAP >60 HR in 100s Respiratory: Saturating well on 2L RA NC Lungs CTA b/l. No active pulmonary disease on Chest xray treat underlying urosepsis Trend VBG w/ lactate Maintain SaO2 >90% Pulmonary toilet GI: soft diet abdomen soft/nondistended. protonix IVP for GI PPx CT abdomen planned for today. C. Diff antigen/toxin negative /Renal: -Recurrent nephrolithiasis/UTI Renal ultrasound: b/l proximal ureteric stones. b/l renal stones. b/l pelvic fullness/trace hydronephrosis more on the left side Plans discussed with IR-Dr. Valera, Urology-Dr. Win, no plans for percutaneous drainage at the moment Zendejas catheter -Urosepsis urine culture: proteus mirabilis, e. faecium Consult ID [email or web address] per ID recs Consult urology: Dr. Win Consult nephrology: Dr. Jernigan -Metabolic acidosis calcium carbonate per nephrology recs lactate improving Maintain euvolemia replete electrolytes prn Monitor I/Os. Urine output >0.5 ml/kg/hr ID: -Septic shock 2/2 urosepsis Hx of recurrent UTI/nephrolithiasis blood culture: e. coli urine culture: proteus mirabilis, e. faecium Afebrile. leukocytosis at 20.1 downtrending. Lactate improving, downtrending, today 1.7 R IJ triple lumen catheter in place Being treated with broad spectrum vancomycin, meropenem, Consider remote history of viral borne illness (?malaria/dengue) Consult ID. f/u recs Endocrine: Maintain euglycemia >110 & <180 Heme: H/H stable history of thrombocytopenia Platelets at 34 Administer 2u platelets with a goal >100 Hold lovenox d/t subdural/subarachnoid hemorrhage DVT/GI Ppx: SCD/Protonix Dispo: Pt to remain in ICU for close monitoring. Continue on vasopressor. Will transition to oral vasopressor. Continue to monitor mental status. Case seen, examined and discussed with attending physician, Dr. Chaparro <Arleth Chaparro - Last Filed: 07/14/18 12:14> CCU Objective - Vital Signs / Intake & Output Vital Signs (Last 4 hours): Vital Signs Pulse Resp BP Pulse Ox 07/14/18 10:34 61 18 87/43 L 93 L 07/14/18 10:30 60 19 89/37 L 93 L 07/14/18 10:00 61 18 86/43 L 94 L 07/14/18 09:33 64 111/55 L 95 07/14/18 09:30 60 20 115/65 96 07/14/18 09:00 61 22 112/63 96 07/14/18 08:30 62 20 109/60 95 Intake and Output (Last 8hrs): Intake & Output 07/13/18 07/14/18 07/14/18 22:59 06:59 14:59 Intake Total 2493 350 250 Output Total 950 600 Balance 1543 -250 250 Intake: IV 2493 350 250 Right Antecubital 297 Right Internal Jugular 2196 Output: Urine 950 600 Urethral (Zendejas) 950 600 Stool 0 - Medications Active Medications: Active Medications Generic Name Dose Route Start Last Admin Trade Name Freq PRN Reason Stop Dose Admin Calcium/Vitamin D 1 tab 07/14/18 10:00 07/14/18 09:38 Oscal-D 250 Mg-125 Units Tab PO Not Given BID AGNES Meropenem 1 gm in 50 mls @ 100 mls/hr 07/11/18 10:30 07/14/18 09:39 Merrem Iv 1 Gm Premix IVPB 100 mls/hr Q12 AGNES Administration Protocol NOREPINEPHRINE BIT/0.9 % NACL 4 mg in 250 mls @ 15 mls/hr 07/11/18 11:47 07/14/18 10:43 Levophed 4 Mg/ 250 Ml Ns Premixed IV 5 mcg/min .[id number] PRN 18.75 mls/hr TITRATE PER MD ORDER Administration Protocol 4 MCG/MIN Dexmedetomidine HCl 400 mcg in 100 mls @ 2.767 mls/hr 07/12/18 18:19 07/14/18 06:40 Precedex 400mcg/100ml IV 0.2 mcg/kg/hr .Q24H PRN 2.767 mls/hr Agitation Administration Protocol 0.2 MCG/KG/HR Sodium Chloride 1,000 mls @ 30 mls/hr 07/14/18 10:30 07/14/18 10:41 Sodium Chloride 0.9% IV 07/16/18 10:31 30 mls/hr .Q24H AGNES Administration Insulin Human Regular 0 units 07/13/18 11:30 07/14/18 07:38 Humulin R High SC Not Given ACHS AGNES Protocol Midodrine 5 mg 07/14/18 10:00 07/14/18 09:38 Proamatine PO Not Given TID [facility] Morphine Sulfate 2 mg 07/12/18 17:27 07/12/18 18:05 Morphine IVP 2 mg Q6H PRN Administration Pain, severe (8-10) Ondansetron HCl 4 mg 07/12/18 06:07 07/12/18 06:20 Zofran Inj IVP 4 mg Q6H PRN Administration Nausea/Vomiting Pantoprazole Sodium 40 mg 07/11/18 16:00 07/14/18 09:39 Protonix Inj IVP 40 mg DAILY AGNES Administration - Patient Studies Lab Studies: Microbiology Studies 07/13/18 09:20 Blood Culture - Preliminary Blood-Venous NO GROWTH AFTER 24 HOURS 07/13/18 09:10 Blood Culture - Preliminary Blood-Venous NO GROWTH AFTER 24 HOURS 07/12/18 15:19 C. difficile Antigen & Toxins A,B - Final Stool 07/11/18 05:30 Blood Culture - Final Blood Escherichia Coli Gram Stain - Final 07/11/18 05:30 Blood Culture - Final Blood Escherichia Coli Gram Stain - Final 07/11/18 04:30 Urine Culture - Final Urine,Clean Catch Proteus Mirabilis Enterococcus Faecalis Lab Studies 07/14/18 07/14/18 07/13/18 Range/Units 06:00 06:00 21:33 WBC 20.1 H (4.5-11.0) 10^3/uL RBC 3.24 L (3.5-6.1) 10^6/uL Hgb 10.2 L (12.0-16.0) g/dL Hct 30.3 L (36.0-48.0) % MCV 93.5 (80.0-105.0) fl MCH 31.5 (25.0-35.0) pg MCHC 33.7 (31.0-37.0) g/dl RDW 15.2 H (11.5-14.5) % Plt Count 34 L* (120.0-450.0) 10^3/uL Platelet Evaluation Low (NORMAL) pO2 (30-55) mm/Hg VBG pH (7.32-7.43) VBG pCO2 (40-60) VBG HCO3 (21-28) mmol/l VBG Total CO2 (22-28) mmol.L VBG O2 Sat (Calc) (40-65) % VBG Base Excess (0.0-2.0) mmol/L VBG Potassium (3.6-5.2) mmol/L Sodium 145 (132-148) mmol/L Chloride 117 H (98-107) mmol/L Glucose (65-105) mg/dl Lactate (0.7-2.1) mmol/L FiO2 % Potassium 3.6 (3.6-5.0) mmol/L Carbon Dioxide 21 (21-33) mmol/L Anion Gap 11 (10-20) BUN 18 (7-21) mg/dL Creatinine 1.1 (0.7-1.2) mg/dl Est GFR ( Amer) 59 Est GFR (Non-Af Amer) 49 POC Glucose (mg/dL) 131 H (65-110) mg/dL Random Glucose 125 H (70-110) mg/dL Calcium 6.1 L* (8.4-10.5) mg/dL Phosphorus 2.6 (2.5-4.5) mg/dL Magnesium 1.7 (1.7-2.2) mg/dL Total Bilirubin 1.3 (0.2-1.3) mg/dL AST 32 (14-36) U/L ALT 38 (7-56) U/L Alkaline Phosphatase 142 H D (38-126) U/L Total Protein 4.9 L (5.8-8.3) g/dL Albumin 2.3 L (3.0-4.8) g/dL Globulin 2.6 gm/dL Albumin/Globulin Ratio 0.9 L (1.1-1.8) Venous Blood Potassium (3.6-5.2) mmol/L 07/13/18 07/13/18 07/13/18 Range/Units 16:26 16:26 16:08 WBC (4.5-11.0) 10^3/uL RBC (3.5-6.1) 10^6/uL Hgb (12.0-16.0) g/dL Hct (36.0-48.0) % MCV (80.0-105.0) fl MCH (25.0-35.0) pg MCHC (31.0-37.0) g/dl RDW (11.5-14.5) % Plt Count (120.0-450.0) 10^3/uL Platelet Evaluation (NORMAL) pO2 50 (30-55) mm/Hg VBG pH 7.43 (7.32-7.43) VBG pCO2 39.0 L (40-60) VBG HCO3 25.9 (21-28) mmol/l VBG Total CO2 27.1 (22-28) mmol.L VBG O2 Sat (Calc) 91.7 H (40-65) % VBG Base Excess 1.5 (0.0-2.0) mmol/L VBG Potassium 3.3 L (3.6-5.2) mmol/L Sodium 145 145.0 (132-148) mmol/L Chloride 114 H 115.0 H (98-107) mmol/L Glucose 167 H (65-105) mg/dl Lactate 1.7 (0.7-2.1) mmol/L FiO2 21.0 % Potassium 3.3 L (3.6-5.0) mmol/L Carbon Dioxide 25 (21-33) mmol/L Anion Gap 9 L (10-20) BUN 16 (7-21) mg/dL Creatinine 1.0 (0.7-1.2) mg/dl Est GFR ( Amer) > 60 Est GFR (Non-Af Amer) 55 POC Glucose (mg/dL) 169 H (65-110) mg/dL Random Glucose 155 H (70-110) mg/dL Calcium 6.0 L* (8.4-10.5) mg/dL Phosphorus 2.5 (2.5-4.5) mg/dL Magnesium 1.8 (1.7-2.2) mg/dL Total Bilirubin 1.6 H (0.2-1.3) mg/dL AST 25 (14-36) U/L ALT 32 (7-56) U/L Alkaline Phosphatase 115 (38-126) U/L Total Protein 4.6 L (5.8-8.3) g/dL Albumin 2.1 L (3.0-4.8) g/dL Globulin 2.5 gm/dL Albumin/Globulin Ratio 0.8 L (1.1-1.8) Venous Blood Potassium 3.3 L (3.6-5.2) mmol/L 07/13/18 Range/Units 12:33 WBC (4.5-11.0) 10^3/uL RBC (3.5-6.1) 10^6/uL Hgb (12.0-16.0) g/dL Hct (36.0-48.0) % MCV (80.0-105.0) fl MCH (25.0-35.0) pg MCHC (31.0-37.0) g/dl RDW (11.5-14.5) % Plt Count (120.0-450.0) 10^3/uL Platelet Evaluation (NORMAL) pO2 (30-55) mm/Hg VBG pH (7.32-7.43) VBG pCO2 (40-60) VBG HCO3 (21-28) mmol/l VBG Total CO2 (22-28) mmol.L VBG O2 Sat (Calc) (40-65) % VBG Base Excess (0.0-2.0) mmol/L VBG Potassium (3.6-5.2) mmol/L Sodium (132-148) mmol/L Chloride (98-107) mmol/L Glucose (65-105) mg/dl Lactate (0.7-2.1) mmol/L FiO2 % Potassium (3.6-5.0) mmol/L Carbon Dioxide (21-33) mmol/L Anion Gap (10-20) BUN (7-21) mg/dL Creatinine (0.7-1.2) mg/dl Est GFR ( Amer) Est GFR (Non-Af Amer) POC Glucose (mg/dL) 164 H (65-110) mg/dL Random Glucose (70-110) mg/dL Calcium (8.4-10.5) mg/dL Phosphorus (2.5-4.5) mg/dL Magnesium (1.7-2.2) mg/dL Total Bilirubin (0.2-1.3) mg/dL AST (14-36) U/L ALT (7-56) U/L Alkaline Phosphatase (38-126) U/L Total Protein (5.8-8.3) g/dL Albumin (3.0-4.8) g/dL Globulin gm/dL Albumin/Globulin Ratio (1.1-1.8) Venous Blood Potassium (3.6-5.2) mmol/L Laboratory Results - last 24 hr 07/13/18 07/13/18 07/13/18 12:33 16:08 16:26 WBC RBC Hgb Hct MCV MCH MCHC RDW Plt Count Platelet Evaluation pO2 50 VBG pH 7.43 VBG pCO2 39.0 L VBG HCO3 25.9 VBG Total CO2 27.1 VBG O2 Sat (Calc) 91.7 H VBG Base Excess 1.5 VBG Potassium 3.3 L Sodium 145.0 Chloride 115.0 H Glucose 167 H Lactate 1.7 FiO2 21.0 Potassium Carbon Dioxide Anion Gap BUN Creatinine Est GFR ( Amer) Est GFR (Non-Af Amer) POC Glucose (mg/dL) 164 H 169 H Random Glucose Calcium Phosphorus Magnesium Total Bilirubin AST ALT Alkaline Phosphatase Total Protein Albumin Globulin Albumin/Globulin Ratio Venous Blood Potassium 3.3 L 07/13/18 07/13/18 07/14/18 16:26 21:33 06:00 WBC 20.1 H RBC 3.24 L Hgb 10.2 L Hct 30.3 L MCV 93.5 MCH 31.5 MCHC 33.7 RDW 15.2 H Plt Count 34 L* Platelet Evaluation Low pO2 VBG pH VBG pCO2 VBG HCO3 VBG Total CO2 VBG O2 Sat (Calc) VBG Base Excess VBG Potassium Sodium 145 Chloride 114 H Glucose Lactate FiO2 Potassium 3.3 L Carbon Dioxide 25 Anion Gap 9 L BUN 16 Creatinine 1.0 Est GFR ( Amer) > 60 Est GFR (Non-Af Amer) 55 POC Glucose (mg/dL) 131 H Random Glucose 155 H Calcium 6.0 L* Phosphorus 2.5 Magnesium 1.8 Total Bilirubin 1.6 H AST 25 ALT 32 Alkaline Phosphatase 115 Total Protein 4.6 L Albumin 2.1 L Globulin 2.5 Albumin/Globulin Ratio 0.8 L Venous Blood Potassium 07/14/18 06:00 WBC RBC Hgb Hct MCV MCH MCHC RDW Plt Count Platelet Evaluation pO2 VBG pH VBG pCO2 VBG HCO3 VBG Total CO2 VBG O2 Sat (Calc) VBG Base Excess VBG Potassium Sodium 145 Chloride 117 H Glucose Lactate FiO2 Potassium 3.6 Carbon Dioxide 21 Anion Gap 11 BUN 18 Creatinine 1.1 Est GFR ( Amer) 59 Est GFR (Non-Af Amer) 49 POC Glucose (mg/dL) Random Glucose 125 H Calcium 6.1 L* Phosphorus 2.6 Magnesium 1.7 Total Bilirubin 1.3 AST 32 ALT 38 Alkaline Phosphatase 142 H D Total Protein 4.9 L Albumin 2.3 L Globulin 2.6 Albumin/Globulin Ratio 0.9 L Venous Blood Potassium Critical Care Progress Note - Nutrition Nutrition: Nutrition Category Date Time Status Diabetic [Consistent Carbohydrate] [DIET] Diets 07/11/18 Dinner Ordered Addendum Addendum: 07/14/18 12:09 ICU ATTENDING : Patent seen and examined with housestaff. Agree with progress note with following additions/exceptions: 72F with hx of recurrent nephrolithiasis, recurrent UTI/urosepsis, ureterovesicular reflux, DM2, Crohn's disease, h/o subdural hematoma, pancytopenia admitted to the MICU with septic shock likely urosepsis Renal US shows mulitple stones BL with mild hydronephrosis. Discussed case with Urology Dr Win and Dr. Valera (IR) who recommended holding off on intervention at this point. Treating medically She has rec'd enough fluid 30cc/kg (about 1800cc) Cont Levophed with vasopressin to augment the levo at a fixed rate of 0.03 now down to 5 of levophed shes runs a low BP at baseline in the 90's systolic. Start midodrine 5 tid PO broad abx as per ID covering Ecoli bactermia repeat bnlood cx neg so far x 1 day monitor urineoutput monitor mental status, she is much more awake and alert now CT Head did show small SAH, transfused plat however they barely moved chronic low plat no change in mental status so doubt brain bleed worsening, if changed on MRI will goal > 100k Start feeding today PPI for GI PPX hold hep given bleed SCDs for DVT ppx Rest of care as above Arleth Chaparro MD Pulmonary, Critical Care and Sleep Medicine Critical Care TIme: 31 mins
[2018-07-14 09:23] LABS: PLATELET ESTIMATE LOW (NORMAL)
[2018-07-14] MEDS: Calcium-Vit D 250 mg-125 Units Tab UD PO SCH ×2 (09:38→17:58)
[2018-07-14] MEDS: Meropenem IV 1 gm in NS 1 GM/50 ML BAG IVPB SCH ×2 (09:39→22:21)
[2018-07-14] MEDS ORDERED: Sodium Chloride 0.9% 1,000 ML IV SCH (10:30)
--- NOTE | 2018-07-14 10:30 | CP.PCM.PN ---
Subjective - Date & Time of Evaluation Date of Evaluation: 07/14/18 Time of Evaluation: 10:29 - Subjective Subjective: Nephrology Consultation Note: Assessment: critical CODY HAGMA with lactic acidosis Hypokalemia GNR sepsis with shock diabetes Mellitus ( years), b/l kidney stones and recurrent UTIs, gastric bypass surgery, UV reflux, crohns disease, splenomegaly, pancytopenia hypophosphatemia, hypokalemia subarachnoid hemorrhage severe sys CHF LVEF 30% Plan No acute need for renal replacement therapy at this time. Maintain hemodynamics stable. Avoid hypotension. Patient not on ACEI/ARB due to shock Monitor Input/Output, daily weights and renal function with basic metabolic panel supplement lytes as needed renal sono reviewed. ID, IR and urology involved check urine pro/cr and alb/cr legs compressive stockings Dose meds/antibiotics for reduced GFR. Avoid fleets enema/magnesium based laxatives. Avoid nephrotoxins/NSAIDs/ iodinated contrast (unless needed emergently) Glycemic control Further work up/management as per primary team Thanks for allowing me to participate in care of your patient. Will follow patient with you. Please call if any Qs. had d/w team and family Dr Chad Jernigan Office: [phone] Chief Complaint; fever/chills Reason for consult: acidosis and hypokalemia HPI: Pt is a 72 F with hx of diabetes Mellitus ( years), b/l kidney stones and recurrent UTIs, ileum bypass surgery, UV reflux, crohn's disease, splenomegaly, pancytopenia ? HSP presented with complaints of fever and chhills, admitted to ICU with sepsis with shock requiring pressors and lactic acidosis. no knwon OTC/herbal meds or NSAIDs Noted recent iodinated contrast exposure. Noted obvious episodes of low BP. per , pt got sick for last couple of days ROS: pt unable to provide any hx Physical Examination: General Appearance: in no acute respiratory distress, ill appearing Vitals reviewed and noted as below Head; Atraumatic, normocephalic ENT: no ulcers no thrush. Tongue is midline. Oropharynx: no rash or ulcers. EYES: Pupils are equal, round and reactive to light accommodation. Eye muscles and extraocular movement intact. Sclera is anicteric. Neck; supple no lymphadenopathy, no thyromegaly or bruit Lungs: Normal respiratory rate/effort. Breath sounds bilateral equal and clear Heart: Increased rate. s1s2 normal. No rub or gallop. Extremities: 2+ edema. No varicose veins Neurological: Patient is unresponsive. Skin: Warm and dry. Normal turgor. No rash. Palpitation: Normal elasticity for age Abdomen: Abdomen is soft. Bowel sounds +. There is no abdominal tenderness, no guarding/rigidity no organomegaly Psych: unable MSK: no joint tenderness or swelling. Digits and nails normal, no deformity : kidney or bladder not palpable Labs/imaging reviewed. Past medical history, past surgical history, family history, social history, allergy reviewed and noted as below Family hx: no hx of CKD. Rest non-contributory Objective - Vital Signs/Intake and Output Vital Signs (last 24 hours): Temp Pulse Resp BP Pulse Ox 98.3 F 73 21 120/68 97 07/13/18 20:00 07/14/18 07:00 07/14/18 07:00 07/14/18 07:00 07/14/18 07:00 Intake and Output: 07/14/18 07/14/18 06:59 18:59 Intake Total 2843 175 Output Total 1550 Balance 1293 175 - Medications Medications: Current Medications Calcium/Vitamin D (Oscal-D 250 Mg-125 Units Tab) 1 tab PO BID [facility] Last Admin: 07/14/18 09:38 Dose: Not Given Meropenem (Merrem Iv 1 Gm Premix) 1 gm in 50 mls @ 100 mls/hr IVPB Q12 [facility]; Protocol Last Admin: 07/14/18 09:39 Dose: 100 mls/hr NOREPINEPHRINE BIT/0.9 % NACL (Levophed 4 Mg/ 250 Ml Ns Premixed) 4 mg in 250 mls @ 15 mls/hr IV .[id number] PRN; Protocol PRN Reason: TITRATE PER MD ORDER Last Titration: 07/14/18 09:39 Dose: 3 mcg/min, 11.25 mls/hr Dexmedetomidine HCl (Precedex 400mcg/100ml) 400 mcg in 100 mls @ 2.767 mls/hr IV .Q24H PRN; Protocol PRN Reason: Agitation Last Admin: 07/14/18 06:40 Dose: 0.2 mcg/kg/hr, 2.767 mls/hr Insulin Human Regular (Humulin R High) 0 units SC ACHS [facility]; Protocol Last Admin: 07/14/18 07:38 Dose: Not Given Midodrine (Proamatine) 5 mg PO TID [facility] Last Admin: 07/14/18 09:38 Dose: Not Given Morphine Sulfate (Morphine) 2 mg IVP Q6H PRN PRN Reason: Pain, severe (8-10) Last Admin: 07/12/18 18:05 Dose: 2 mg Ondansetron HCl (Zofran Inj) 4 mg IVP Q6H PRN PRN Reason: Nausea/Vomiting Last Admin: 07/12/18 06:20 Dose: 4 mg Pantoprazole Sodium (Protonix Inj) 40 mg IVP DAILY [facility] Last Admin: 07/14/18 09:39 Dose: 40 mg - Labs Labs: 07/14/18 06:00 07/14/18 06:00 PT 16.3 SECONDS (9.4-12.5) H 07/11/18 05:30 INR 1.41 07/11/18 05:30 APTT 24.2 Seconds (25.1-36.5) L 07/11/18 05:30
[2018-07-14] MEDS: NOREPINEPHRINE BIT/0.9 % NACL 4 MG/250 ML BAG IV PRN ×2 (10:43→11:00)
--- NOTE | 2018-07-14 11:25 | CP.PCM.PN ---
Subjective - Date & Time of Evaluation Date of Evaluation: 07/14/18 Time of Evaluation: 09:25 - Subjective Subjective: Patient is less agitated today, no fevers, not in distress but still feels weak. Objective - Vital Signs/Intake and Output Vital Signs (last 24 hours): Temp Pulse Resp BP Pulse Ox 98.1 F 74 19 91/47 L 98 07/13/18 04:00 07/13/18 07:40 07/13/18 07:40 07/13/18 07:30 07/13/18 07:40 Intake and Output: 07/13/18 07/13/18 06:59 18:59 Intake Total 1867 Output Total 1150 Balance 717 - Medications Medications: Current Medications Meropenem (Merrem Iv 1 Gm Premix) 1 gm in 50 mls @ 100 mls/hr IVPB Q12 [facility]; Protocol Last Admin: 07/13/18 09:35 Dose: 100 mls/hr NOREPINEPHRINE BIT/0.9 % NACL (Levophed 4 Mg/ 250 Ml Ns Premixed) 4 mg in 250 mls @ 15 mls/hr IV .[id number] PRN; Protocol PRN Reason: TITRATE PER MD ORDER Last Titration: 07/13/18 06:00 Dose: 5 mcg/min, 18.75 mls/hr Vasopressin 20 units/ Sodium (Chloride) 101 mls @ 9.09 mls/hr IV .[id number] [facility]; Protocol Last Admin: 07/12/18 23:12 Dose: 9.09 mls/hr Lactated Ringer's (Lactated Ringer's) 500 mls @ 0 mls/hr IV .Q0M [facility] Sodium Bicarbonate 150 meq/ (Dextrose) 1,150 mls @ 100 mls/hr IV .[id number] [facility] Stop: 07/14/18 11:16 Last Admin: 07/12/18 23:14 Dose: 100 mls/hr Acetaminophen (Ofirmev) 1,000 mg in 100 mls @ 400 mls/hr IVPB Q6H PRN PRN Reason: Pain, moderate (4-7) Stop: 07/13/18 11:05 Dexmedetomidine HCl (Precedex 400mcg/100ml) 400 mcg in 100 mls @ 2.767 mls/hr IV .Q24H PRN; Protocol PRN Reason: Agitation Last Admin: 07/12/18 21:01 Dose: 0.2 mcg/kg/hr, 2.767 mls/hr Potassium Chloride (Potassium Chloride 20 Meq/100 Ml) 20 meq in 100 mls @ 50 mls/hr IVPB Q2H [facility] Stop: 07/13/18 12:59 Last Admin: 07/13/18 09:33 Dose: 50 mls/hr Potassium Phosphate 15 mmole/ (Sodium Chloride) 255 mls @ 42.5 mls/hr IVPB ONCE ONE Stop: 07/13/18 13:49 Last Admin: 07/13/18 09:35 Dose: 42.5 mls/hr Vancomycin HCl 2 gm/ Sodium (Chloride) 500 mls @ 170 mls/hr IVPB ONCE ONE; Protocol Stop: 07/13/18 11:31 Last Admin: 07/13/18 09:39 Dose: 170 mls/hr Insulin Human Regular (Humulin R High) 0 units SC ACHS [facility]; Protocol Morphine Sulfate (Morphine) 2 mg IVP Q6H PRN PRN Reason: Pain, severe (8-10) Last Admin: 07/12/18 18:05 Dose: 2 mg Ondansetron HCl (Zofran Inj) 4 mg IVP Q6H PRN PRN Reason: Nausea/Vomiting Last Admin: 07/12/18 06:20 Dose: 4 mg Pantoprazole Sodium (Protonix Inj) 40 mg IVP DAILY [facility] Last Admin: 07/13/18 09:40 Dose: 40 mg - Labs Labs: 07/13/18 05:30 07/13/18 05:30 PT 16.3 SECONDS (9.4-12.5) H 07/11/18 05:30 INR 1.41 07/11/18 05:30 APTT 24.2 Seconds (25.1-36.5) L 07/11/18 05:30 - Constitutional Appears: Cachectic, Chronically Ill - Head Exam Head Exam: NORMAL INSPECTION - Neck Exam Neck Exam: absent: Meningismus Additional comments: right IJ TLC in place - Respiratory Exam Respiratory Exam: Decreased Breath Sounds - Cardiovascular Exam Cardiovascular Exam: +S1, +S2 - GI/Abdominal Exam GI & Abdominal Exam: Soft. absent: Tenderness Assessment and Plan - Assessment and Plan (Free Text) Plan: Assessment septic shock with acute renal failure, toxic-metabolic encephalopathy (on top of small left frontal lobe subarachnoid hemorrhage as seen on head CT) due to E. coli bacteremia, consider due to pyelonephritis in this patient with history of nephrolithiasis and obstructive uropathy, but also growing E. faecalis and Proteus in the urine, R/O infected nephrolithiasis - other differential diagnosis is intra-abdominal infection but CT A/P does not show specific source of infection in the abdomen history of severe sepsis probably due to urinary tract infection in a patient with a history of nephrolithiasis S/P pigtail catheter placement history of right sided pyelonephritis associated with nephrolithiasis with E. faecalis Crohn's disease DM history of pyelonephritis bilateral nephrolithiasis S/P cholecystectomy S/P tubal ligation Plan will continue intermittent IV Vancomycin and continue Merrem and follow up repeat urine cx; repeat blood cx are negative x [address] A/P showing multiple kidney stones and ureteral stents reviewed Urology evaluation - agree that patient needs Urologic procedure but patient is still too unstable to undergo procedures will continue to monitor clinically prognosis is guarded at best
--- NOTE | 2018-07-14 12:52 | MRI ---
Date of service: 07/14/2018 PROCEDURE: MRI BRAIN WITHOUT CONTRAST HISTORY: r/o cva/hemorrhage COMPARISON: Noncontrast head CT from 07/11/2018. TECHNIQUE: Multiplanar, multisequence MR images of the brain were obtained without intravenous contrast enhancement. FINDINGS: HEMORRHAGE: Redemonstration of small left frontal subarachnoid hemorrhage. DWI: There are multiple small foci of restricted diffusion in bilateral high parietal and frontal cortex and bilateral occipital cortex. BRAIN PARENCHYMA: There are T2/FLAIR hyperintense foci corresponding to the foci of restricted diffusion. There is no mass or mass effect. The midline sagittal structures are normal. For VENTRICLES: There is mild age-related global parenchymal volume loss and proportionate enlargement of the ventricles and cortical sulci. CRANIUM: There is normal bone marrow signal pattern. ORBITS: Grossly unremarkable. PARANASAL SINUSES/MASTOIDS: The paranasal sinuses are predominantly clear. There are bilateral mastoid effusions. VASCULAR SYSTEM: There are normal signal voids in the larger intracranial arteries. OTHER FINDINGS: None. IMPRESSION: 1. Small multifocal late acute/subacute cortical infarctions in the high frontal, parietal and to a lesser extent occipital cortex. 2. Redemonstration of small left frontal subarachnoid hemorrhage. Important findings were discussed with Dr. Chaparro in the ICU on 07/14/2018 at 12:45 p.m.
--- NOTE | 2018-07-14 13:18 | CP.PCM.PN ---
Subjective - Date & Time of Evaluation Date of Evaluation: 07/14/18 Time of Evaluation: 07:00 - Subjective Subjective: Sivakumar Vázquez, PGY1 Medicine Progress Note for Dr. Hoyos Patient was seen and examined at bedside this morning. Patient's mental status is unchanged from yesterday. Patient is responsive to sternal rub. Because of this, a reliable ROS was unable to be obtained. Vital signs are stable. No adverse overnight events. Objective - Vital Signs/Intake and Output Vital Signs (last 24 hours): Temp Pulse Resp BP Pulse Ox 97.2 F L 60 17 111/55 L 93 L 07/14/18 12:25 07/14/18 12:00 07/14/18 12:00 07/14/18 12:00 07/14/18 12:00 Intake and Output: 07/14/18 07/14/18 06:59 18:59 Intake Total 2843 270 Output Total 1550 Balance 1293 270 - Medications Medications: Current Medications Calcium/Vitamin D (Oscal-D 250 Mg-125 Units Tab) 1 tab PO BID [facility]ES Last Admin: 07/14/18 09:38 Dose: Not Given Meropenem (Merrem Iv 1 Gm Premix) 1 gm in 50 mls @ 100 mls/hr IVPB Q12 [facility]; Protocol Last Admin: 07/14/18 09:39 Dose: 100 mls/hr NOREPINEPHRINE BIT/0.9 % NACL (Levophed 4 Mg/ 250 Ml Ns Premixed) 4 mg in 250 mls @ 15 mls/hr IV .[id number] PRN; Protocol PRN Reason: TITRATE PER MD ORDER Last Titration: 07/14/18 12:47 Dose: 3 mcg/min, 11.25 mls/hr Dexmedetomidine HCl (Precedex 400mcg/100ml) 400 mcg in 100 mls @ 2.767 mls/hr IV .Q24H PRN; Protocol PRN Reason: Agitation Last Admin: 07/14/18 06:40 Dose: 0.2 mcg/kg/hr, 2.767 mls/hr Sodium Chloride (Sodium Chloride 0.9%) 1,000 mls @ 30 mls/hr IV .Q24H [facility] Stop: 07/16/18 10:31 Last Admin: 07/14/18 10:41 Dose: 30 mls/hr Insulin Human Regular (Humulin R High) 0 units SC ACHS [facility]; Protocol Last Admin: 07/14/18 12:20 Dose: Not Given Midodrine (Proamatine) 5 mg PO TID [facility] Last Admin: 07/14/18 09:38 Dose: Not Given Morphine Sulfate (Morphine) 2 mg IVP Q6H PRN PRN Reason: Pain, severe (8-10) Last Admin: 07/12/18 18:05 Dose: 2 mg Ondansetron HCl (Zofran Inj) 4 mg IVP Q6H PRN PRN Reason: Nausea/Vomiting Last Admin: 07/12/18 06:20 Dose: 4 mg Pantoprazole Sodium (Protonix Inj) 40 mg IVP DAILY [facility] Last Admin: 07/14/18 09:39 Dose: 40 mg - Labs Labs: 07/14/18 06:00 07/14/18 06:00 PT 16.3 SECONDS (9.4-12.5) H 07/11/18 05:30 INR 1.41 07/11/18 05:30 APTT 24.2 Seconds (25.1-36.5) L 07/11/18 05:30 - Constitutional Appears: Other (Lethargic ) - Head Exam Head Exam: ATRAUMATIC, NORMAL INSPECTION, NORMOCEPHALIC - Eye Exam Eye Exam: EOMI, Normal appearance, PERRL - ENT Exam ENT Exam: Mucous Membranes Moist, Normal Exam - Respiratory Exam Respiratory Exam: Clear to Ausculation Bilateral, NORMAL BREATHING PATTERN. absent: Rales, Rhonchi, Wheezes, Respiratory Distress - Cardiovascular Exam Cardiovascular Exam: REGULAR RHYTHM, +S1, +S2. absent: Murmur - GI/Abdominal Exam GI & Abdominal Exam: Soft, Normal Bowel Sounds. absent: Tenderness - Extremities Exam Extremities Exam: Normal Capillary Refill. absent: Joint Swelling, Pedal Edema - Neurological Exam Neurological Exam: Awake. absent: Oriented x3 - Skin Skin Exam: Dry, Intact, Normal Color, Warm Assessment and Plan - Assessment and Plan (Free Text) Assessment: Patient is a 72 y/o F with PMHx of recurrent nephrolithiasis, recurrent UTIs, u reterovesicular reflux, DM2, Crohn's disease, h/o subdural hematoma brought in by EMS to [facility] with complaints of fever/chills/diarrhea x 2days. Patient was admitted to ICU for septic shock 2/2 Urosepsis. Neurology was consulted for subarachnoid hemorrhage on head CT. Patient also found to be bacteremic. Plan: AMS due to E. Coli Bacteremia in the setting of Septic Shock 2/2 Urosepsis with Hx of recurrent nephrolithiasis - Blood cx grew E. Coli - Urine cx grew Proteus mirabilis and enterococcus faecalis - C. Diff negative - MRSA negative - Echo: 30%. Systolic function is severely impaired. Global hypoknesis of the left ventricle. No thrombus noted. - ID recs appreciated: c/w IV vanco and c/w merrem - Urology recs appreciated: patient is not a candidate for general anesthesia at this time due to septic shock. No hydronephrosis. - Abdomen/Pelvis CT (07/12): large stone in the R-renal pelvis measuring 24x32 mm. There are 3 separate 5 mm stones in the right distal ureter adjacent to the ureteral stent. There is a left ureteral stent. There is a 10 mm stone within within proximal pigtail. There is a 14 mm nonobstructing stone in the lower pole of the L-kidney. - Renal sono (07/11): b/l proximal ureteral stones, larger on right. Small b/l non-obstructing stones. - R-IJ central line placed by ICU team on 07/11 due to septic shock - c/w Levophed - UA + UTI Acute/subacute cortical infarctions with stable subarachnoid Hemorrhage - MRI (07/14): small multifocal late acute/subacute cortical infarctions in the high frontal parietal and to a lesser extent occipital cortex. - f/u recommendations as per neuro and ICU team based on recent MRI findings - Head/Neck CTA: unremarkable - Head CT (07/11): 1.5 cm subarachnoid hemorrhage in the left frontal lobe - NeuroSx was curbsided and no intervention at this time. Recommend medical management: Keep BP < 140/80, HOB > 35 degrees, seizure/fall precautions, swallow eval, PT/OT. - Patient has hx of subdural hematoma NSTEMI - Cardio consulted. Recs appreciated. Patient is not a suitable candidate for anticoagulation, betablockers, or ACEI at this time. - Elevated troponin at 1.12 - EKG changes: sinus tachy with T wave depressions noted Hypokalemia - 2.5 today; started on IV potassium chloride - continue to replete as needed - 2.6 on admission - monitor Leukocytosis - C. diff negative - wbc is 20.1, trending down from 22.8 - monitor cbc - Patient was on high dose steroids at home, may contribute to leukocytosis Thrombocytopenia - Heme/onc consulted, f/u recs. - Platelets are 33 today. As per ICU, given x2 platelet transfusion - Patient has a hx of thrombocytopenia Hypocalcemia - Corrected calcium is 7.8 - Repleted HypoPhos - currently 2.2 - Neutrophos given - 1.3 on admission HypoMg - resolved - currently 1.9 - 1.5 on admission DVT ppx: SCD GI ppx: PTX Dispo: continue to monitor patient in the ICU. Case was discussed and reviewed with Attending Physician, Dr. Hoyos
--- NOTE | 2018-07-14 13:28 | PN ---
DATE: 07/14/2018 FOLLOWUP SUBJECTIVE: The patient just came from MRI. 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 She denies any chest pain. She is currently on Levophed infusion 5 mcg/minute. PHYSICAL EXAMINATION: VITAL SIGNS: Blood pressure 111/55, heart rate 60, temperature 97.2, respirations 17. HEENT: Normocephalic. CHEST: Clear. HEART: S1 and S2 regular. EXTREMITIES: 1+ pitting edema. LABORATORY DATA: Hemoglobin and hematocrit 10.2 and 30.3, white count 20.1, platelet count 34,000. Today's SMA-7 is within normal limits except for glucose of 125 and chloride of 117, calcium 6.1, magnesium is 1.7. Brain MRI report is still pending. Echocardiography study done yesterday revealed severely impaired left ventricular systolic function with moderately impaired right ventricular systolic function. No evidence of left ventricular thrombus in the study. ASSESSMENT: 1. Biventricular failure. 2. Consider [id number] myocardial infarction. 3. Severe thrombocytopenia. 4. Improved hypokalemia and hypomagnesemia. The patient is still hypocalcemic. 5. Bilateral nephrolithiasis. 6. Escherichia coli bacteremia. RECOMMENDATIONS: Continue current Levophed infusion at 5 mcg/minute. Continue IV meropenem at 1 g every 12 hours. The patient is not a suitable candidate for anticoagulation, beta blockers or MARKUS inhibitors at this time. Case was discussed with Dr. Hoyos. Cosmo Morfin MD
--- NOTE | 2018-07-14 16:16 | CP.PCM.PN ---
Subjective - Date & Time of Evaluation Date of Evaluation: 07/14/18 Time of Evaluation: 16:13 - Subjective Subjective: Patients MRI now shows bilateral strokes, biparietal, most likely ischemic. Patient is awake, more than she has been since admission, but family and exam shows that she cannot hear. ROS: no headache, no nausea, no vomiting, no weakness On exam: AAOx2. PERRL. CN 2-12 normal. no facial droop. motor: RIght arm is plegic, and has decreased sensation, 0/5 right leg is plegic as well, but this maybe secondary to effort. Left arm and leg are 5/5 +2 ul andl ll bl. Toes downgoing. No clonus. Gait is not tested. Objective - Vital Signs/Intake and Output Vital Signs (last 24 hours): Temp Pulse Resp BP Pulse Ox 98.6 F 62 14 88/66 L 98 07/14/18 15:27 07/14/18 15:30 07/14/18 15:30 07/14/18 15:30 07/14/18 15:30 Intake and Output: 07/14/18 07/14/18 06:59 18:59 Intake Total 2843 313 Output Total 1550 Balance 1293 313 - Medications Medications: Current Medications Calcium/Vitamin D (Oscal-D 250 Mg-125 Units Tab) 1 tab PO BID [facility] Last Admin: 07/14/18 09:38 Dose: Not Given Meropenem (Merrem Iv 1 Gm Premix) 1 gm in 50 mls @ 100 mls/hr IVPB Q12 [facility]; P rotocol Last Admin: 07/14/18 09:39 Dose: 100 mls/hr NOREPINEPHRINE BIT/0.9 % NACL (Levophed 4 Mg/ 250 Ml Ns Premixed) 4 mg in 250 mls @ 15 mls/hr IV .[id number] PRN; Protocol PRN Reason: TITRATE PER MD ORDER Last Titration: 07/14/18 14:32 Dose: 1.5 mcg/min, 5.625 mls/hr Dexmedetomidine HCl (Precedex 400mcg/100ml) 400 mcg in 100 mls @ 2.767 mls/hr IV .Q24H PRN; Protocol PRN Reason: Agitation Last Admin: 07/14/18 06:40 Dose: 0.2 mcg/kg/hr, 2.767 mls/hr Sodium Chloride (Sodium Chloride 0.9%) 1,000 mls @ 30 mls/hr IV .Q24H [facility] Stop: 07/16/18 10:31 Last Admin: 07/14/18 10:41 Dose: 30 mls/hr Insulin Human Regular (Humulin R High) 0 units SC ACHS [facility]; Protocol Last Admin: 07/14/18 12:20 Dose: Not Given Midodrine (Proamatine) 5 mg PO TID [facility] Last Admin: 07/14/18 14:02 Dose: 5 mg Morphine Sulfate (Morphine) 2 mg IVP Q6H PRN PRN Reason: Pain, severe (8-10) Last Admin: 07/12/18 18:05 Dose: 2 mg Ondansetron HCl (Zofran Inj) 4 mg IVP Q6H PRN PRN Reason: Nausea/Vomiting Last Admin: 07/12/18 06:20 Dose: 4 mg Pantoprazole Sodium (Protonix Inj) 40 mg IVP DAILY [facility] Last Admin: 07/14/18 09:39 Dose: 40 mg - Labs Labs: 07/14/18 06:00 07/14/18 06:00 PT 16.3 SECONDS (9.4-12.5) H 07/11/18 05:30 INR 1.41 07/11/18 05:30 APTT 24.2 Seconds (25.1-36.5) L 07/11/18 05:30 Assessment and Plan - Assessment and Plan (Free Text) Assessment: 72 yr old woman with new ischemic strokes, biparietal that are acute, as well as a subarachnoid hemorrhage that was most likely traumatic. Plan: 1. LESLY carlee 2. aspirin and plavix 3. CTA head and neck 4. lipid profile. 5. PT ST OT 6. subarachnoid hemorrhage: stable. Thank you Dr. todd
[2018-07-14] MEDS: Morphine 2 mg/ml ISec IVP PRN (19:12)
--- NOTE | 2018-07-14 19:55 | CP.PCM.PN ---
<Sivakumar Vázquez - Last Filed: 07/14/18 19:50> Subjective - Date & Time of Evaluation Date of Evaluation: 07/14/18 Time of Evaluation: 07:00 - Subjective Subjective: Sivakumar Vázquez, PGY1 Medicine Progress Note for Dr. Hoyos Patient was seen and examined at bedside this morning. Patient's mental status is unchanged from yesterday. Patient is responsive to sternal rub. Because of this, a reliable ROS was unable to be obtained. Vital signs are stable. No adverse overnight events. Objective - Vital Signs/Intake and Output Vital Signs (last 24 hours): Temp Pulse Resp BP Pulse Ox 98.6 F 66 23 93/45 L 95 07/14/18 15:27 07/14/18 18:00 07/14/18 18:00 07/14/18 18:00 07/14/18 18:00 Intake and Output: 07/14/18 07/15/18 18:59 06:59 Intake Total 1933 Output Total 700 Balance 1233 - Medications Medications: Current Medications Calcium/Vitamin D (Oscal-D 250 Mg-125 Units Tab) 1 tab PO BID [facility] Last Admin: 07/14/18 17:58 Dose: 1 tab Meropenem (Merrem Iv 1 Gm Premix) 1 gm in 50 mls @ 100 mls/hr IVPB Q12 [facility]; Protocol Last Admin: 07/14/18 09:39 Dose: 100 mls/hr NOREPINEPHRINE BIT/0.9 % NACL (Levophed 4 Mg/ 250 Ml Ns Premixed) 4 mg in 250 mls @ 15 mls/hr IV .[id number] PRN; Protocol PRN Reason: TITRATE PER MD ORDER Last Titration: 07/14/18 14:32 Dose: 1.5 mcg/min, 5.625 mls/hr Dexmedetomidine HCl (Precedex 400mcg/100ml) 400 mcg in 100 mls @ 2.767 mls/hr IV .Q24H PRN; Protocol PRN Reason: Agitation Last Admin: 07/14/18 06:40 Dose: 0.2 mcg/kg/hr, 2.767 mls/hr Sodium Chloride (Sodium Chloride 0.9%) 1,000 mls @ 30 mls/hr IV .Q24H [facility]ES Stop: 07/16/18 10:31 Last Admin: 07/14/18 10:41 Dose: 30 mls/hr Insulin Human Regular (Humulin R High) 0 units SC ACHS [facility]; Protocol Last Admin: 07/14/18 16:49 Dose: Not Given Midodrine (Proamatine) 5 mg PO TID [facility] Last Admin: 07/14/18 17:58 Dose: 5 mg Morphine Sulfate (Morphine) 2 mg IVP Q6H PRN PRN Reason: Pain, severe (8-10) Last Admin: 07/14/18 19:12 Dose: 2 mg Ondansetron HCl (Zofran Inj) 4 mg IVP Q6H PRN PRN Reason: Nausea/Vomiting Last Admin: 07/12/18 06:20 Dose: 4 mg Pantoprazole Sodium (Protonix Inj) 40 mg IVP DAILY [facility] Last Admin: 07/14/18 09:39 Dose: 40 mg - Labs Labs: 07/14/18 06:00 07/14/18 06:00 PT 16.3 SECONDS (9.4-12.5) H 07/11/18 05:30 INR 1.41 07/11/18 05:30 APTT 24.2 Seconds (25.1-36.5) L 07/11/18 05:30 - Constitutional Appears: No Acute Distress - Head Exam Head Exam: ATRAUMATIC, NORMAL INSPECTION, NORMOCEPHALIC - Eye Exam Eye Exam: EOMI, Normal appearance, PERRL - ENT Exam ENT Exam: Mucous Membranes Moist, Normal Exam - Respiratory Exam Respiratory Exam: Clear to Ausculation Bilateral, NORMAL BREATHING PATTERN. absent: Prolonged Expiratory Phase, Rales, Rhonchi, Wheezes - Cardiovascular Exam Cardiovascular Exam: REGULAR RHYTHM, +S1, +S2. absent: Murmur - GI/Abdominal Exam GI & Abdominal Exam: Soft, Normal Bowel Sounds. absent: Tenderness - Extremities Exam Extremities Exam: Normal Capillary Refill. absent: Joint Swelling, Pedal Edema, Tenderness - Neurological Exam Neurological Exam: Awake - Skin Skin Exam: Dry, Intact, Normal Color, Warm Assessment and Plan - Assessment and Plan (Free Text) Assessment: Patient is a 72 y/o F with PMHx of recurrent nephrolithiasis, recurrent UTIs, ureterovesicular reflux, DM2, Crohn's disease, h/o subdural hematoma brought in by EMS to [facility] [place] with complaints of fever/chills/diarrhea x 2days. Patient was a dmitted to ICU for septic shock 2/2 Urosepsis. Neurology was consulted for subarachnoid hemorrhage on head CT. Patient also found to be bacteremic. Plan: Acute/subacute cortical infarctions with stable subarachnoid Hemorrhage - MRI (07/14): small multifocal late acute/subacute cortical infarctions in the high frontal parietal and to a lesser extent occipital cortex. - f/u recommendations as per neuro and ICU team based on recent MRI findings - Head/Neck CTA: unremarkable - Head CT (07/11): 1.5 cm subarachnoid hemorrhage in the left frontal lobe - NeuroSx was curbsided and no intervention at this time. Recommend medical management: Keep BP < 140/80, HOB > 35 degrees, seizure/fall precautions, swallow eval, PT/OT. - Patient has hx of subdural hematoma NSTEMI - Cardio consulted. Recs appreciated. Patient is not a suitable candidate for anticoagulation, betablockers, or ACEI at this time. - Elevated troponin at 1.12 - EKG changes: sinus tachy with T wave depressions noted Thrombocytopenia - Heme/onc consulted, f/u recs. - Platelets are 34 today. x2 platelet transfusions. - Patient has a hx of thrombocytopenia Hypocalcemia - Corrected calcium is 7.46 - Repleted - monitor Leukocytosis - improving - wbc is 20.1, trending down from 22.8 - C. diff negative - monitor cbc - Patient was on high dose steroids at home, may contribute to leukocytosis Hypokalemia - resolved - 3.65 today - continue to replete as needed - 2.6 on admission - monitor HypoPhos - resolved - currently 2.6 - Neutrophos given - 1.3 on admission HypoMg - resolved - currently 1.7 - 1.5 on admission DVT ppx: SCD GI ppx: PTX Dispo: continue to monitor patient in the ICU. Case was discussed and reviewed with Attending Physician, Dr. Hoyos <Ila Hoyos - Last Filed: 07/15/18 07:31> Objective - Vital Signs/Intake and Output Vital Signs (last 24 hours): Temp Pulse Resp BP Pulse Ox 98.3 F 72 18 101/50 L 97 07/15/18 00:00 07/15/18 03:00 07/15/18 03:00 07/15/18 03:00 07/15/18 03:00 Intake and Output: 07/15/18 07/15/18 06:59 18:59 Intake Total 27 Balance 27 - Medications Medications: Current Medications Calcium Gluconate (Calcium Gluconate Iv) 1,000 mg IVP ONCE ONE Stop: 07/15/18 07:18 Calcium/Vitamin D (Oscal-D 250 Mg-125 Units Tab) 1 tab PO BID [facility] Last Admin: 07/14/18 17:58 Dose: 1 tab Guaifenesin (Robitussin) 100 mg PO Q4H PRN PRN Reason: Cough Last Admin: 07/15/18 00:35 Dose: 100 mg Meropenem (Merrem Iv 1 Gm Premix) 1 gm in 50 mls @ 100 mls/hr IVPB Q12 [facility]; Protocol Last Admin: 07/14/18 22:21 Dose: 100 mls/hr NOREPINEPHRINE BIT/0.9 % NACL (Levophed 4 Mg/ 250 Ml Ns Premixed) 4 mg in 250 mls @ 15 mls/hr IV .[id number] PRN; Protocol PRN Reason: TITRATE PER MD ORDER Last Titration: 07/14/18 23:30 Dose: 2 mcg/min, 7.5 mls/hr Dexmedetomidine HCl (Precedex 400mcg/100ml) 400 mcg in 100 mls @ 2.767 mls/hr IV .Q24H PRN; Protocol PRN Reason: Agitation Last Admin: 07/14/18 06:40 Dose: 0.2 mcg/kg/hr, 2.767 mls/hr Sodium Chloride (Sodium Chloride 0.9%) 1,000 mls @ 30 mls/hr IV .Q24H [facility] Stop: 07/16/18 10:31 Last Admin: 07/14/18 10:41 Dose: 30 mls/hr Magnesium Sulfate/Dextrose (Magnesium Sulfate 1 Gm/100 Ml D5w) 1 gm in 100 mls @ 100 mls/hr IVPB ONCE ONE Stop: 07/15/18 08:19 Insulin Human Regular (Humulin R High) 0 units SC ACHS [facility]; Protocol Last Admin: 07/14/18 22:19 Dose: Not Given Midodrine (Proamatine) 5 mg PO TID [facility] Last Admin: 07/14/18 17:58 Dose: 5 mg Morphine Sulfate (Morphine) 2 mg IVP Q6H PRN PRN Reason: Pain, severe (8-10) Last Admin: 07/14/18 19:12 Dose: 2 mg Ondansetron HCl (Zofran Inj) 4 mg IVP Q6H PRN PRN Reason: Nausea/Vomiting Last Admin: 07/12/18 06:20 Dose: 4 mg Pantoprazole Sodium (Protonix Inj) 40 mg IVP DAILY [facility] Last Admin: 07/14/18 09:39 Dose: 40 mg Potassium Phos/Sodium Phos (Neutra-Phos) 1 pkt PO ONCE ONE Stop: 07/15/18 07:31 - Labs Labs: 07/15/18 05:50 07/15/18 05:50 PT 16.3 SECONDS (9.4-12.5) H 07/11/18 05:30 INR 1.41 07/11/18 05:30 APTT 24.2 Seconds (25.1-36.5) L 07/11/18 05:30 Attending/Attestation - Attestation I have personally seen and examined this patient.: Yes I have fully participated in the care of the patient.: Yes I have reviewed all pertinent clinical information, including history, physical exam and plan: Yes Notes (Text): 07/14/18 72 year old female with past medical history of UTI, nephrolithiasis, diabetes, and history of subdural hematoma who presented with fever and chills. She was found to have septic shock secondary to gram negative bacteremia and UTI and admitted to the ICU. BP did not respond initially to fluid resuscitation and sh e was started on pressors. Continue with iv antibiotics as per ID. Blood culture is growing E Coli x 2 and UCx is growing Proteus Mirabilis and Enterobacter Faecalis. CT abd/pelvis showed large stone (24x32 mm) in the right renal pelvis and 3 separate 5 mm stones in the right distal ureter adjacent to the ureteral stent; left ureteral stent with 10 mm ston within proximal pigtail; no hydronephrosis. Renal ultrasound showed bilateral proximal ureteral stones, larger on right; and small bilateral non-obstructing stones. Urology is following; consider urological intervention once patient is more stable. CT head showed small amount of subarachnoid hemorrhage in the left frontal lobe. Neurosurgery was notified; no acute intervention. MRI brain was done today which showed small multifocal late acute / subacute cortical infarctions in the high frontal parietal and to a lesser extent occipital cortex. CTA head/neck were unremarkable. Neurology is following. Patient also has thrombocytopenia. Will continue to monitor closely and transfuse as needed. Hematology evaluation is requested. Also noted to have elevated troponin, possible NSTEMI. Cardiology is following. Patient is not candidate for aspirin or anticoagulation secondary to SAH and thrombocytopenia. Echocardiogram showed systolic funditon severely impaired (EF 30%); global hypokinesis of the left ventricle. Will replete and repeat lytes. Overall prognosis is guarded. Ila Hoyos MD Hospitalist.
[2018-07-14] MEDS ORDERED: guaiFENesin 100 mg/5 ml Syrup UD PO PRN (23:30)
[2018-07-15 06:12] LABS: HEMOGLOBIN 9.6 g/dL (12.0-16.0); MEAN CELL VOLUME 94.7 fl (80.0-105.0); MEAN CORPUSCULAR HEMOGLOBIN 31.7 pg (25.0-35.0); MEAN CORPUSCULAR HGB CONC 33.4 g/dl (31.0-37.0); RBC 3.03 10^6/uL (3.5-6.1); RED CELL DISTRIBUTION WIDTH 14.8 % (11.5-14.5); WHITE BLOOD COUNT 8.1 10^3/uL (4.5-11.0)
[2018-07-15 06:14] LABS: PLATELET COUNT 27 10^3/uL (120.0-450.0)
[2018-07-15 06:19] LABS: ALB/GLOB RATIO 0.8 (1.1-1.8); ALT/SGPT 38 U/L (7-56); AST/SGOT 43 U/L (14-36); BLOOD UREA NITROGEN 18 mg/dL (7-21); CALCIUM 5.9 mg/dL (8.4-10.5); GFR NON-AFRICAN AMERICAN 55
[2018-07-15] MEDS ORDERED: Potassium Chloride 20 mEq ER Tab PO STA (07:14)
[2018-07-15] MEDS ORDERED: Magnesium Sulfate 1 gm in D5W 1 GM/100 ML BAG IVPB ONE (07:20)
[2018-07-15] MEDS ORDERED: Potassium & Sodium Phosphate PO ONE (07:30)
[2018-07-15] MEDS: Insulin Reg-HIGH-Coverage SC SCH ×4 (08:52→21:14)
[2018-07-15] MEDS: Calcium-Vit D 250 mg-125 Units Tab UD PO SCH ×2 (09:06→17:48)
[2018-07-15] MEDS: Meropenem IV 1 gm in NS 1 GM/50 ML BAG IVPB SCH ×2 (09:06→21:05)
--- NOTE | 2018-07-15 09:29 | PN ---
DATE: 07/15/2018 SUBJECTIVE: The patient is resting comfortably with O2 via nasal cannula at this time. No obvious complaints. No present distress or fever, no chills. PHYSICAL EXAMINATION: VITAL SIGNS: Note that her temperature is 98.01, her pulse is 78, respirations are 18 and BP is 101/50. SKIN: Warm and dry. HEENT: Head atraumatic, normocephalic. Eyes reactive to light. Ears, nose and throat seem to be within normal limits. NECK: Supple. No JVD. No thyroid enlargement. No lymph nodes. HEART: Has regular rate and rhythm. Normal S1, S2. LUNGS: Reveal good breath sounds. ABDOMEN: Soft, nontender. Normal bowel sounds. GENITALIA AND RECTAL: Deferred. MUSCULOSKELETAL: No joint deformities. EXTREMITIES: Reveal no significant edema. NEUROLOGIC: She is awake and responds, seems to be moving all extremities. LABORATORY DATA: As far as her laboratories are concerned, white count is 8.1, hemoglobin is 9.6 with hematocrit 28.7 with platelets of 27,000. The patient's sodium is 140, potassium 3.0, chloride 114, CO2 of 24 with a BUN of 18, creatinine of 1.0 and a glucose of 119. IMPRESSION: As far as my impression, this patient presented with urosepsis and noted to have Escherichia coli bacteremia and determined to have septic shock. She has a history of dementia and is noted to have a left frontal subdural hematoma, questionable falls. The patient has thrombocytopenia as well as hypokalemia. She has nephrolithiasis, diabetes as well as anemia. PLAN: As far as our plan, we will correct the potassium. We will continue to follow closely and the patient is on meropenem as well as Levophed, midodrine, Protonix, Robitussin as well as Zofran and IV fluids. We will continue to monitor closely and treat aggressively along with the other consultants and the primary care doctor. Elier Hernandez MD
--- NOTE | 2018-07-15 10:51 | CP.PCM.PN ---
Subjective - Date & Time of Evaluation Date of Evaluation: 07/15/18 Time of Evaluation: 09:45 - Subjective Subjective: Comfortable in bed, no fevers, still on vasopressors but the dose is much less, no vomiting or diarrhea. Objective - Vital Signs/Intake and Output Vital Signs (last 24 hours): Temp Pulse Resp BP Pulse Ox 98.3 F 61 18 87/43 L 93 L 07/13/18 20:00 07/14/18 10:34 07/14/18 10:34 07/14/18 10:34 07/14/18 10:34 Intake and Output: 07/14/18 07/14/18 06:59 18:59 Intake Total 2843 250 Output Total 1550 Balance 1293 250 - Medications Medications: Current Medications Calcium/Vitamin D (Oscal-D 250 Mg-125 Units Tab) 1 tab PO BID [facility] Last Admin: 07/14/18 09:38 Dose: Not Given Meropenem (Merrem Iv 1 Gm Premix) 1 gm in 50 mls @ 100 mls/hr IVPB Q12 [facility]; Protocol Last Admin: 07/14/18 09:39 Dose: 100 mls/hr NOREPINEPHRINE BIT/0.9 % NACL (Levophed 4 Mg/ 250 Ml Ns Premixed) 4 mg in 250 mls @ 15 mls/hr IV .[id number] PRN; Protocol PRN Reason: TITRATE PER MD ORDER Last Admin: 07/14/18 10:43 Dose: 5 mcg/min, 18.75 mls/hr Dexmedetomidine HCl (Precedex 400mcg/100ml) 400 mcg in 100 mls @ 2.767 mls/hr IV .Q24H PRN; Protocol PRN Reason: Agitation Last Admin: 07/14/18 06:40 Dose: 0.2 mcg/kg/hr, 2.767 mls/hr Sodium Chloride (Sodium Chloride 0.9%) 1,000 mls @ 30 mls/hr IV .Q24H [facility] Stop: 07/16/18 10:31 Last Admin: 07/14/18 10:41 Dose: 30 mls/hr Insulin Human Regular (Humulin R High) 0 units SC ACHS [facility]; Protocol Last Admin: 07/14/18 07:38 Dose: Not Given Midodrine (Proamatine) 5 mg PO TID [facility] Last Admin: 07/14/18 09:38 Dose: Not Given Morphine Sulfate (Morphine) 2 mg IVP Q6H PRN PRN Reason: Pain, severe (8-10) Last Admin: 07/12/18 18:05 Dose: 2 mg Ondansetron HCl (Zofran Inj) 4 mg IVP Q6H PRN PRN Reason: Nausea/Vomiting Last Admin: 07/12/18 06:20 Dose: 4 mg Pantoprazole Sodium (Protonix Inj) 40 mg IVP DAILY [facility] Last Admin: 07/14/18 09:39 Dose: 40 mg - Labs Labs: 07/14/18 06:00 07/14/18 06:00 PT 16.3 SECONDS (9.4-12.5) H 07/11/18 05:30 INR 1.41 07/11/18 05:30 APTT 24.2 Seconds (25.1-36.5) L 07/11/18 05:30 - Constitutional Appears: Cachectic, Chronically Ill - Head Exam Head Exam: NORMAL INSPECTION - Neck Exam Neck Exam: absent: Meningismus Additional comments: right IJ TLC in place - Respiratory Exam Respiratory Exam: Decreased Breath Sounds - Cardiovascular Exam Cardiovascular Exam: +S1, +S2 - GI/Abdominal Exam GI & Abdominal Exam: Soft. absent: Tenderness Assessment and Plan - Assessment and Plan (Free Text) Plan: Assessment septic shock with acute renal failure, toxic-metabolic encephalopathy, slwoly improving (on top of small left frontal lobe subarachnoid hemorrhage as seen on head CT) due to E. coli bacteremia, consider due to pyelonephritis in this patient with history of nephrolithiasis and obstructive uropathy, but also growing E. faecalis and Proteus in the urine, R/O infected nephrolithiasis - other differential diagnosis is intra-abdominal infection but CT A/P does not show specific source of infection in the abdomen history of severe sepsis probably due to urinary tract infection in a patient with a history of nephrolithiasis S/P pigtail catheter placement history of right sided pyelonephritis associated with nephrolithiasis with E. faecalis Crohn's disease DM history of pyelonephritis bilateral nephrolithiasis S/P cholecystectomy S/P tubal ligation Plan will continue intermittent IV Vancomycin and continue Merrem and follow up repeat urine cx; repeat blood cx are negative; repeat urine cx is showing yeast which may be colonization but given her history of nephrolithiasis, will treat with Mycamine and order repeat urine cx again tomorrow reviewed CT A/P showing multiple kidney stones and ureteral stents reviewed Urology evaluation - agree that patient needs Urologic procedure but patient is still too unstable to undergo procedures will continue to monitor clinically prognosis is guarded at best
[2018-07-15 11:52] LABS: ARTERIAL BLOOD GAS O2 SAT 98.1 % (95-98); ARTERIAL BLOOD GAS PCO2 30 mm/Hg (35-45); ARTERIAL BLOOD GAS PH 7.41 (7.35-7.45); ARTERIAL BLOOD GAS TCO2 19.9 mmol.L (22-28)
[2018-07-15] MEDS: Micafungin 100 MG in Sodium Chloride 0.9% 100 ML IV SCH (12:06)
--- NOTE | 2018-07-15 12:58 | CP.PCM.PN ---
<Sivakumar Vázquez - Last Filed: 07/15/18 12:52> Subjective - Date & Time of Evaluation Date of Evaluation: 07/15/18 Time of Evaluation: 07:00 - Subjective Subjective: Sivakumar Vázquez, PGY1 Medicine Progress Note for Dr. Hoyos Patient was seen and examined at bedside this morning. Vital signs are stable. Patient is verbally responsive today. She is AAOx3. No adverse overnight events. Patient is aware that she had a new stroke and was informed that she was in the ICU also for treatment for infection. She denied chest pain and shortness of breath. A full ROS was unable to be obtained, however, patient was more alert and awake today. Objective - Vital Signs/Intake and Output Vital Signs (last 24 hours): Temp Pulse Resp BP Pulse Ox 97.8 F 78 25 H 104/56 L 99 07/15/18 08:00 07/15/18 10:00 07/15/18 10:00 07/15/18 10:00 07/15/18 10:00 Intake and Output: 07/15/18 07/15/18 06:59 18:59 Intake Total 27 Output Total 800 Balance -773 - Medications Medications: Current Medications Calcium/Vitamin D (Oscal-D 250 Mg-125 Units Tab) 1 tab PO BID AGNES Last Admin: 07/15/18 09:06 Dose: 1 tab Guaifenesin (Robitussin) 100 mg PO Q4H PRN PRN Reason: Cough Last Admin: 07/15/18 00:35 Dose: 100 mg Meropenem (Merrem Iv 1 Gm Premix) 1 gm in 50 mls @ 100 mls/hr IVPB Q12 AGNES; Protocol Last Admin: 07/15/18 09:06 Dose: 100 mls/hr NOREPINEPHRINE BIT/0.9 % NACL (Levophed 4 Mg/ 250 Ml Ns Premixed) 4 mg in 250 mls @ 15 mls/hr IV .[id number] PRN; Protocol PRN Reason: TITRATE PER MD ORDER Last Titration: 07/14/18 23:30 Dose: 2 mcg/min, 7.5 mls/hr Dexmedetomidine HCl (Precedex 400mcg/100ml) 400 mcg in 100 mls @ 2.767 mls/hr IV .Q24H PRN; Protocol PRN Reason: Agitation Last Admin: 07/14/18 06:40 Dose: 0.2 mcg/kg/hr, 2.767 mls/hr Sodium Chloride (Sodium Chloride 0.9%) 1,000 mls @ 30 mls/hr IV .Q24H AGNES Stop: 07/16/18 10:31 Last Admin: 07/14/18 10:41 Dose: 30 mls/hr Micafungin Sodium 100 mg/ (Sodium Chloride) 100 mls @ 100 mls/hr IV DAILY AGNES; Protocol Stop: 07/22/18 11:01 Insulin Human Regular (Humulin R High) 0 units SC ACHS AGNES; Protocol Last Admin: 07/15/18 08:52 Dose: Not Given Midodrine (Proamatine) 5 mg PO TID [facility] Last Admin: 07/15/18 09:06 Dose: 5 mg Morphine Sulfate (Morphine) 2 mg IVP Q6H PRN PRN Reason: Pain, severe (8-10) Last Admin: 07/14/18 19:12 Dose: 2 mg Ondansetron HCl (Zofran Inj) 4 mg IVP Q6H PRN PRN Reason: Nausea/Vomiting Last Admin: 07/12/18 06:20 Dose: 4 mg Pantoprazole Sodium (Protonix Inj) 40 mg IVP DAILY [facility] Last Admin: 07/15/18 09:07 Dose: 40 mg - Labs Labs: 07/15/18 05:50 07/15/18 05:50 PT 16.3 SECONDS (9.4-12.5) H 07/11/18 05:30 INR 1.41 07/11/18 05:30 APTT 24.2 Seconds (25.1-36.5) L 07/11/18 05:30 - Constitutional Appears: No Acute Distress - Head Exam Head Exam: ATRAUMATIC, NORMAL INSPECTION, NORMOCEPHALIC - Eye Exam Eye Exam: EOMI, Normal appearance, PERRL Pupil Exam: NORMAL ACCOMODATION, PERRL - ENT Exam ENT Exam: Mucous Membranes Moist, Normal Exam - Respiratory Exam Respiratory Exam: Clear to Ausculation Bilateral, NORMAL BREATHING PATTERN. absent: Decreased Breath Sounds, Rales, Rhonchi, Wheezes, Stridor - Cardiovascular Exam Cardiovascular Exam: REGULAR RHYTHM, +S1, +S2. absent: Murmur - GI/Abdominal Exam GI & Abdominal Exam: Soft, Normal Bowel Sounds. absent: Guarding, Rigid, Tenderness - Extremities Exam Extremities Exam: Full ROM, Normal Capillary Refill, Normal Inspection. absent: Joint Swelling, Pedal Edema - Neurological Exam Neurological Exam: Alert, Awake, Oriented x3 - Skin Skin Exam: Dry, Intact, Normal Color, Warm Assessment and Plan - Assessment and Plan (Free Text) Assessment: Patient is a 72 y/o F with PMHx of recurrent nephrolithiasis, recurrent UTIs, ureterovesicular reflux, DM2, Crohn's disease, h/o subdural hematoma [place] [facility] [place] of fever/chills/diarrhea x 2days. Patient was admitted to ICU for AMS due to E. Coli Bacteremia in the setting of septic shock 2/2 Uropesis with recurrent nephrolithiasis. Patient was also found to have Acute cortical infarcts with stable subarachnoid hemorrhage. She also presented with NSTEMI and thrombocytopenia. Plan: AMS due to E. Coli Bacteremia in the setting of Septic Shock 2/2 Urosepsis with Hx of recurrent nephrolithiasis - repeat urine cx +yeast; ID recs: started Mycamine - c/w intermittent IV vanco and c/w merrem; f/u repeat urine cx - Leukocytosis improved to 8.1 wbc - Blood cx grew E. Coli - Urine cx grew Proteus mirabilis and enterococcus faecalis - C. Diff negative - MRSA negative - Echo: 30%. Systolic function is severely impaired. Global hypoknesis of the left ventricle. No thrombus noted. - Urology recs appreciated: patient is not a candidate for general anesthesia at this time due to septic shock. No hydronephrosis. - Abdomen/Pelvis CT (07/12): large stone in the R-renal pelvis measuring 24x32 mm. There are 3 separate 5 mm stones in the right distal ureter adjacent to the ureteral stent. There is a left ureteral stent. There is a 10 mm stone within within proximal pigtail. There is a 14 mm nonobstructing stone in the lower pole of the L-kidney. - Renal sono (07/11): b/l proximal ureteral stones, larger on right. Small b/l non-obstructing stones. - R-IJ central line placed by ICU team on 07/11 due to septic shock - Patient is still on Levophed Acute/subacute cortical infarctions in the frontal, parietal, and occipital cortex with stable subarachnoid Hemorrhage - Neuro recommends appreciated: LESLY; PT/ST/OT - MRI (07/14): small multifocal late acute/subacute cortical infarctions in the high frontal parietal and to a lesser extent occipital cortex. - Head/Neck CTA (07/12): unremarkable. - Head CT (07/11): 1.5 cm subarachnoid hemorrhage in the left frontal lobe - Patient has hx of subdural hematoma Thrombocytopenia - Heme/onc consulted. Pending recommendations. - Platelets are 27 today. Total of x3 platelet transfusions. - Patient has a hx of thrombocytopenia NSTEMI - elevated troponins likely secondary to stroke - Cardio consulted. Recs appreciated. Patient is not a suitable candidate for anticoagulation, betablockers, or ACEI at this time. - Elevated troponin at 1.12 - likely due to new finding of stroke - EKG changes: sinus tachy with T wave depressions noted Electrolyte Abnormalities due to Sepsis (Hypocalcemia, Hypomagnesemia, Hypoph osphatemia) - Corrected calcium is 7.5 today; repleted. - K is 3.0; repleted - Mg 1.6; repleted - Phos 2.1; repleted - Nephro consulted. Recs appreciated. DVT ppx: SCD GI ppx: PTX Dispo: continue to monitor patient in the ICU. PT recommends acute rehab. Case was discussed and reviewed with Attending Physician, Dr. Hoyos <Ila Hoyos - Last Filed: 07/15/18 16:19> Objective - Vital Signs/Intake and Output Vital Signs (last 24 hours): Temp Pulse Resp BP Pulse Ox 97.8 F 78 25 H 104/56 L 99 07/15/18 12:00 07/15/18 14:00 07/15/18 10:00 07/15/18 10:00 07/15/18 10:00 Intake and Output: 07/15/18 07/15/18 06:59 18:59 Intake Total 27 Output Total 800 Balance -773 - Medications Medications: Current Medications Calcium/Vitamin D (Oscal-D 250 Mg-125 Units Tab) 1 tab PO BID AGNES Last Admin: 07/15/18 09:06 Dose: 1 tab Guaifenesin (Robitussin) 100 mg PO Q4H PRN PRN Reason: Cough Last Admin: 07/15/18 00:35 Dose: 100 mg Meropenem (Merrem Iv 1 Gm Premix) 1 gm in 50 mls @ 100 mls/hr IVPB Q12 AGNES; Protocol Last Admin: 07/15/18 09:06 Dose: 100 mls/hr NOREPINEPHRINE BIT/0.9 % NACL (Levophed 4 Mg/ 250 Ml Ns Premixed) 4 mg in 250 mls @ 15 mls/hr IV .[id number] PRN; Protocol PRN Reason: TITRATE PER MD ORDER Last Titration: 07/14/18 23:30 Dose: 2 mcg/min, 7.5 mls/hr Dexmedetomidine HCl (Precedex 400mcg/100ml) 400 mcg in 100 mls @ 2.767 mls/hr IV .Q24H PRN; Protocol PRN Reason: Agitation Last Admin: 07/14/18 06:40 Dose: 0.2 mcg/kg/hr, 2.767 mls/hr Micafungin Sodium 100 mg/ (Sodium Chloride) 100 mls @ 100 mls/hr IV DAILY AGNES; Protocol Stop: 07/22/18 11:01 Last Admin: 07/15/18 12:06 Dose: 100 mls/hr Insulin Human Regular (Humulin R High) 0 units SC ACHS AGNES; Protocol Last Admin: 07/15/18 12:06 Dose: 2 u Midodrine (Proamatine) 5 mg PO TID AGNES Last Admin: 07/15/18 14:30 Dose: 5 mg Morphine Sulfate (Morphine) 2 mg IVP Q6H PRN PRN Reason: Pain, severe (8-10) Last Admin: 07/14/18 19:12 Dose: 2 mg Ondansetron HCl (Zofran Inj) 4 mg IVP Q6H PRN PRN Reason: Nausea/Vomiting Last Admin: 07/12/18 06:20 Dose: 4 mg Pantoprazole Sodium (Protonix Inj) 40 mg IVP DAILY AGNES Last Admin: 07/15/18 09:07 Dose: 40 mg - Labs Labs: 07/15/18 05:50 07/15/18 05:50 PT 16.3 SECONDS (9.4-12.5) H 07/11/18 05:30 INR 1.41 07/11/18 05:30 APTT 24.2 Seconds (25.1-36.5) L 07/11/18 05:30 Attending/Attestation - Attestation I have personally seen and examined this patient.: Yes I have fully participated in the care of the patient.: Yes I have reviewed all pertinent clinical information, including history, physical exam and plan: Yes Notes (Text): 07/15/18 16:17 72 year old female with past medical history of UTI, nephrolithiasis, diabetes, and history of subdural hematoma who presented with fever and chills. She was found to have septic shock secondary to gram negative bacteremia and UTI and admitted to the ICU. BP did not respond initially to fluid resuscitation and sh e was started on pressors. Continue with iv antibiotics as per ID. Blood culture is growing E Coli x 2 and UCx is growing Proteus Mirabilis and Enterobacter Faecalis. Repeat UCx grew yeast species and patient is started on micafungin. CT abd/pelvis showed large stone (24x32 mm) in the right renal pelvis and 3 separate 5 mm stones in the right distal ureter adjacent to the ureteral stent; left ureteral stent with 10 mm stone within proximal pigtail; no hydronephrosis. Renal ultrasound showed bilateral proximal ureteral stones, larger on right; and small bilateral non-obstructing stones. Urology is following; consider urological intervention once patient is more stable. CT head showed small amount of subarachnoid hemorrhage in the left frontal lobe. Neurosurgery was notified; no acute intervention. MRI brain was done today which showed small multifocal late acute / subacute cortical infarctions in the high frontal parietal and to a lesser extent occipital cortex. CTA head/neck were unremarkable. Neurology is following. PT evaluation was appreciated who recommended acute rehab. Patient also has thrombocytopenia. Will continue to monitor closely and transfuse as needed. Hematology evaluation was requested. Also noted to have elevated troponin, possible NSTEMI. Cardiology is following. Patient is not candidate for aspirin or anticoagulation secondary to SAH and thrombocytopenia. Echocardiogram showed systolic funditon severely impaired (EF 30%); global hypokinesis of the left ventricle. Will replete and repeat lytes. Overall prognosis is guarded. Ila Hoyos MD Hospitalist.
[2018-07-15] MEDS ORDERED: Potassium Chloride 20 mEq ER Tab PO ONE (13:13)
--- NOTE | 2018-07-15 15:00 | CP.PCM.PN ---
Subjective - Date & Time of Evaluation Date of Evaluation: 07/15/18 Time of Evaluation: 14:59 - Subjective Subjective: Nephrology Consultation Note: Assessment: critical CODY HAGMA with lactic acidosis Hypokalemia GNR sepsis with shock diabetes Mellitus ( years), b/l kidney stones and recurrent UTIs, gastric bypass surgery, UV reflux, crohns disease, splenomegaly, pancytopenia hypophosphatemia, hypokalemia subarachnoid hemorrhage and acute CVA severe sys CHF LVEF 30% Plan No acute need for renal replacement therapy at this time. Maintain hemodynamics stable. Avoid hypotension. Patient not on ACEI/ARB due to shock Monitor Input/Output, daily weights and renal function with basic metabolic panel supplement lytes as needed renal sono reviewed. ID, IR and urology involved check urine pro/cr and alb/cr legs compressive stockings d/c IVF Dose meds/antibiotics for reduced GFR. Avoid fleets enema/magnesium based laxatives. Avoid nephrotoxins/NSAIDs/ iodinated contrast (unless needed emergently) Glycemic control Further work up/management as per primary team Thanks for allowing me to participate in care of your patient. Will follow patient with you. Please call if any Qs. had d/w team and family Dr Chad Jernigan Office: [phone] Chief Complaint; fever/chills Reason for consult: acidosis and hypokalemia HPI: Pt is a 72 F with hx of diabetes Mellitus ( years), b/l kidney stones and recurrent UTIs, ileum bypass surgery, UV reflux, crohn's disease, splenomegaly, pancytopenia ? HSP presented with complaints of fever and chhills, admitted to ICU with sepsis with shock requiring pressors and lactic acidosis. no knwon OTC/herbal meds or NSAIDs Noted recent iodinated contrast exposure. Noted obvious episodes of low BP. per , pt got sick for last couple of days ROS: pt unable to provide any hx. more awake Physical Examination: General Appearance: in no acute respiratory distress, ill appearing Vitals reviewed and noted as below Head; Atraumatic, normocephalic ENT: no ulcers no thrush. Tongue is midline. Oropharynx: no rash or ulcers. EYES: Pupils are equal, round and reactive to light accommodation. Eye muscles and extraocular movement intact. Sclera is anicteric. Neck; supple no lymphadenopathy, no thyromegaly or bruit Lungs: Normal respiratory rate/effort. Breath sounds bilateral equal and clear Heart: Increased rate. s1s2 normal. No rub or gallop. Extremities: 2+ edema. No varicose veins Neurological: Patient is awake but not much communicative Skin: Warm and dry. Normal turgor. No rash. Palpitation: Normal elasticity for age Abdomen: Abdomen is soft. Bowel sounds +. There is no abdominal tenderness, no guarding/rigidity no organomegaly Psych: unable MSK: no joint tenderness or swelling. Digits and nails normal, no deformity : kidney or bladder not palpable Labs/imaging reviewed. Past medical history, past surgical history, family history, social history, allergy reviewed and noted as below Family hx: no hx of CKD. Rest non-contributory Objective - Vital Signs/Intake and Output Vital Signs (last 24 hours): Temp Pulse Resp BP Pulse Ox 97.8 F 78 25 H 104/56 L 99 07/15/18 08:00 07/15/18 10:00 07/15/18 10:00 07/15/18 10:00 07/15/18 10:00 Intake and Output: 07/15/18 07/15/18 06:59 18:59 Intake Total 27 Output Total 800 Balance -773 - Medications Medications: Current Medications Calcium/Vitamin D (Oscal-D 250 Mg-125 Units Tab) 1 tab PO BID AGNES Last Admin: 07/15/18 09:06 Dose: 1 tab Guaifenesin (Robitussin) 100 mg PO Q4H PRN PRN Reason: Cough Last Admin: 07/15/18 00:35 Dose: 100 mg Meropenem (Merrem Iv 1 Gm Premix) 1 gm in 50 mls @ 100 mls/hr IVPB Q12 AGNES; Protocol Last Admin: 07/15/18 09:06 Dose: 100 mls/hr NOREPINEPHRINE BIT/0.9 % NACL (Levophed 4 Mg/ 250 Ml Ns Premixed) 4 mg in 250 mls @ 15 mls/hr IV .[id number] PRN; Protocol PRN Reason: TITRATE PER MD ORDER Last Titration: 07/14/18 23:30 Dose: 2 mcg/min, 7.5 mls/hr Dexmedetomidine HCl (Precedex 400mcg/100ml) 400 mcg in 100 mls @ 2.767 mls/hr IV .Q24H PRN; Protocol PRN Reason: Agitation Last Admin: 07/14/18 06:40 Dose: 0.2 mcg/kg/hr, 2.767 mls/hr Micafungin Sodium 100 mg/ (Sodium Chloride) 100 mls @ 100 mls/hr IV DAILY AGNES; Protocol Stop: 07/22/18 11:01 Last Admin: 07/15/18 12:06 Dose: 100 mls/hr Insulin Human Regular (Humulin R High) 0 units SC ACHS AGNES; Protocol Last Admin: 07/15/18 12:06 Dose: 2 u Midodrine (Proamatine) 5 mg PO TID AGNES Last Admin: 07/15/18 09:06 Dose: 5 mg Morphine Sulfate (Morphine) 2 mg IVP Q6H PRN PRN Reason: Pain, severe (8-10) Last Admin: 07/14/18 19:12 Dose: 2 mg Ondansetron HCl (Zofran Inj) 4 mg IVP Q6H PRN PRN Reason: Nausea/Vomiting Last Admin: 07/12/18 06:20 Dose: 4 mg Pantoprazole Sodium (Protonix Inj) 40 mg IVP DAILY [facility] Last Admin: 07/15/18 09:07 Dose: 40 mg - Labs Labs: 07/15/18 05:50 07/15/18 05:50 PT 16.3 SECONDS (9.4-12.5) H 07/11/18 05:30 INR 1.41 07/11/18 05:30 APTT 24.2 Seconds (25.1-36.5) L 07/11/18 05:30
[2018-07-15 15:49] LABS: VENOUS BLOOD GAS BASE EXCESS -5.9 mmol/L (0.0-2.0); VENOUS BLOOD GAS PO2 190 mm/Hg (30-55); VENOUS BLOOD PH 7.36 (7.32-7.43)
--- NOTE | 2018-07-15 16:04 | PN ---
DATE: 07/15/2018 SUBJECTIVE: The patient denies any chest pain and she does not appear to be in any respiratory distress. PHYSICAL EXAMINATION: VITAL SIGNS: Blood pressure 104/56, heart rate 78, respirations 25, temperature 97.8. HEENT: Normocephalic. CHEST: Basilar rhonchi. HEART: S1, S2 regular. EXTREMITIES: No edema. LABORATORY DATA: Today's hemoglobin and hematocrit 9.6 and 28.7. Today's platelet count has dropped to 27,000. Today's SMA-7, sodium 140, potassium is 3, chloride 114, CO2 of 24, glucose 119, BUN 18, creatinine 1.0. Calcium is 5.9, magnesium 1.6, phosphorus 2.1. A brain MRI report, small multifocalith acute/subacute cortical infarcts in the right frontal parietal and to lesser extent of the occipital cortex. Re-demonstration of small left frontal subarachnoid hemorrhage. ASSESSMENT: 1. Small multifocal acute/subacute cortical infarct involving the frontal parietal and occipital cortex. 2. Subarachnoid hemorrhage. 3. Cardiomyopathy. 4. Worsening thrombocytopenia. 5. Hypokalemia, hypomagnesemia, hypocalcemia and hypophosphatemia. 6. Escherichia coli bacteremia. 7. Bilateral nephrolithiasis. RECOMMENDATIONS: Continue current IV meropenem, IV micafungin. Continue current ProAmatine which was started at 5 mg t.i.d. Hematology evaluation, if not done already, it is recommended. Cosmo Morfin MD
[2018-07-15] MEDS: Morphine 2 mg/ml ISec IVP PRN ×2 (17:48→23:42)
[2018-07-16 05:56] LABS: BASO # 0.01 K/mm3 (0.0-2.0); BASO % 0.2 % (0.0-3.0); EOS # 0.1 (0.0-0.7); EOS % 1.5 % (1.5-5.0); GRAN # 4.63 (1.4-6.5); GRAN % 69.9 % (50.0-68.0); LYMPH # 1.1 (1.2-3.4); LYMPH % 16.6 % (22.0-35.0); MEAN CELL VOLUME 94.8 fl (80.0-105.0); MEAN CORPUSCULAR HEMOGLOBIN 30.9 pg (25.0-35.0); MEAN CORPUSCULAR HGB CONC 32.6 g/dl (31.0-37.0); MONO # 0.8 (0.1-0.6); MONO % 11.8 % (1.0-6.0); RBC 3.24 10^6/uL (3.5-6.1); RED CELL DISTRIBUTION WIDTH 14.2 % (11.5-14.5); WHITE BLOOD COUNT 6.6 10^3/uL (4.5-11.0)
[2018-07-16] MEDS: Morphine 2 mg/ml ISec IVP PRN ×3 (06:03→23:00)
[2018-07-16] MEDS: Pantoprazole 40 mg EC Tab PO SCH (06:04)
[2018-07-16 06:22] LABS: PLATELET COUNT 26 10^3/uL (120.0-450.0)
[2018-07-16 06:29] LABS: ALB/GLOB RATIO 0.8 (1.1-1.8); ALT/SGPT 40 U/L (7-56); AST/SGOT 44 U/L (14-36); BLOOD UREA NITROGEN 13 mg/dL (7-21); CALCIUM 6.1 mg/dL (8.4-10.5); GFR NON-AFRICAN AMERICAN > 60
[2018-07-16] MEDS ORDERED: Magnesium Sulfate 2 gm/50 ml 2 GM/50 ML BAG IVPB ONE (06:52)
[2018-07-16] MEDS: Insulin Reg-HIGH-Coverage SC SCH ×4 (08:28→21:57)
--- NOTE | 2018-07-16 09:22 | CP.PCM.PN ---
<Sivakumar Vázquez - Last Filed: 07/16/18 17:58> Subjective - Date & Time of Evaluation Date of Evaluation: 07/16/18 Time of Evaluation: 07:00 - Subjective Subjective: Sivakumar Vázquez, PGY1 Medicine Progress Note for Dr. Hoyos Patient seen and examined at bedside this morning. She is more verbal today. She complains of ankle pain bilaterally. She denies cp, sob, abdominal pain, n/v. She is aware of her condition. AAOx2. Vital signs are stable. Afebrile overnight. A full 12 point ROS was conducted and unremarkable except as stated above. Objective - Vital Signs/Intake and Output Vital Signs (last 24 hours): Temp Pulse Resp BP Pulse Ox 98.5 F 89 20 106/55 L 87 L 07/16/18 04:00 07/16/18 08:30 07/16/18 08:30 07/16/18 08:30 07/16/18 08:30 Intake and Output: 07/16/18 07/16/18 06:59 18:59 Intake Total 1490 60 Output Total 1100 Balance 390 60 - Medications Medications: Current Medications Calcium/Vitamin D (Oscal-D 250 Mg-125 Units Tab) 1 tab PO BID AGNES Last Admin: 07/15/18 17:48 Dose: 1 tab Guaifenesin (Robitussin) 100 mg PO Q4H PRN PRN Reason: Cough Last Admin: 07/15/18 00:35 Dose: 100 mg Hydrocortisone Sodium Succinate (Solu-Cortef) 50 mg IVP Q6 [facility]ES Meropenem (Merrem Iv 1 Gm Premix) 1 gm in 50 mls @ 100 mls/hr IVPB Q12 [facility]; Protocol Last Admin: 07/15/18 21:05 Dose: 100 mls/hr NOREPINEPHRINE BIT/0.9 % NACL (Levophed 4 Mg/ 250 Ml Ns Premixed) 4 mg in 250 mls @ 15 mls/hr IV .[id number] PRN; Protocol PRN Reason: TITRATE PER MD ORDER Last Titration: 07/16/18 07:00 Dose: 2 mcg/min, 7.5 mls/hr Dexmedetomidine HCl (Precedex 400mcg/100ml) 400 mcg in 100 mls @ 2.767 mls/hr IV .Q24H PRN; Protocol PRN Reason: Agitation Last Admin: 07/14/18 06:40 Dose: 0.2 mcg/kg/hr, 2.767 mls/hr Micafungin Sodium 100 mg/ (Sodium Chloride) 100 mls @ 100 mls/hr IV DAILY [facility]; Protocol Stop: 07/22/18 11:01 Last Admin: 07/15/18 12:06 Dose: 100 mls/hr Insulin Human Regular (Humulin R High) 0 units SC ACHS [facility]; Protocol Last Admin: 07/16/18 08:28 Dose: Not Given Midodrine (Proamatine) 10 mg PO TID [facility] Morphine Sulfate (Morphine) 2 mg IVP Q6H PRN PRN Reason: Pain, severe (8-10) Last Admin: 07/16/18 06:03 Dose: 2 mg Ondansetron HCl (Zofran Inj) 4 mg IVP Q6H PRN PRN Reason: Nausea/Vomiting Last Admin: 07/12/18 06:20 Dose: 4 mg Pantoprazole Sodium (Protonix Ec Tab) 40 mg PO 0600 [facility] Last Admin: 07/16/18 06:04 Dose: 40 mg Potassium Phos/Sodium Phos (Neutra-Phos) 2 pkt PO TID [facility] Pregabalin (Lyrica) 50 mg PO HS [facility] Last Admin: 07/15/18 21:07 Dose: 50 mg - Labs Labs: 07/16/18 05:30 07/16/18 05:30 PT 16.3 SECONDS (9.4-12.5) H 07/11/18 05:30 INR 1.41 07/11/18 05:30 APTT 24.2 Seconds (25.1-36.5) L 07/11/18 05:30 - Constitutional Appears: No Acute Distress - Head Exam Head Exam: ATRAUMATIC, NORMAL INSPECTION, NORMOCEPHALIC - Eye Exam Eye Exam: EOMI, Normal appearance, PERRL - ENT Exam ENT Exam: Mucous Membranes Moist, Normal Exam - Respiratory Exam Respiratory Exam: Clear to Ausculation Bilateral, NORMAL BREATHING PATTERN. absent: Rales, Rhonchi, Wheezes - GI/Abdominal Exam GI & Abdominal Exam: Soft, Normal Bowel Sounds. absent: Tenderness - Extremities Exam Extremities Exam: Tenderness. absent: Pedal Edema Additional comments: bilateral swelling of the lower ext - Neurological Exam Neurological Exam: Alert, Awake, Oriented x3 - Skin Skin Exam: Dry, Intact, Normal Color, Warm Assessment and Plan - Assessment and Plan (Free Text) Assessment: Patient is a 72 y/o F with PMHx of recurrent nephrolithiasis, recurrent UTIs, ureterovesicular reflux, DM2, Crohn's disease, h/o subdural hematoma brought in by EMS to [facility] [place] with complaints of fever/chills/diarrhea x 2days. Patient was admitted to ICU for AMS due to E. Coli Bacteremia in the setting of septic shock 2/2 Uropesis with recurrent nephrolithiasis. Patient was also found to have Acute cortical infarcts with stable subarachnoid hemorrhage. She also presented with NSTEMI and thrombocytopenia. Plan: AMS due to E. Coli Bacteremia in the setting of Septic Shock 2/2 Urosepsis with Hx of recurrent nephrolithiasis - Improving mental status; AAOx3 during interview - Patient has anasarca, plan to decrease fluid; ankle xray is normal - repeat urine cx +yeast; c/w Mycamine as per ID - started on midodrine - c/w merrem - Leukocytosis improved to 6.6 - Blood cx grew E. Coli - Urine cx grew Proteus mirabilis and enterococcus faecalis - C. Diff and MRSA negative - Echo: EF 30%. Global hypoknesis of the left ventricle. No thrombus noted. - Urology recs appreciated: patient is not a candidate for general anesthesia at this time due to septic shock. - Abdomen/Pelvis CT (07/12): large stone in the R-renal pelvis measuring 24x32 mm. There are 3 separate 5 mm stones in the right distal ureter adjacent to the ureteral stent. There is a left ureteral stent. There is a 10 mm stone within within proximal pigtail. There is a 14 mm nonobstructing stone in the lower pole of the L-kidney. Acute/subacute cortical infarctions in the frontal, parietal, and occipital cortex with stable subarachnoid Hemorrhage - Follow up recommendations from cardio about LESLY - Neuro recommends appreciated: LESLY and PT/ST/OT - MRI (07/14): small multifocal late acute/subacute cortical infarctions in the high frontal parietal and to a lesser extent occipital cortex. - Head/Neck CTA (07/12): unremarkable. - Head CT (07/11): 1.5 cm subarachnoid hemorrhage in the left frontal lobe - Patient has hx of subdural hematoma Thrombocytopenia - Heme/onc consulted. Pending recommendations. - Platelets are 26 today. Total of x3 platelet transfusions. - Patient has a hx of thrombocytopenia NSTEMI - elevated troponins likely secondary to stroke - Cardio consulted. Recs appreciated. Patient is not a suitable candidate for anticoagulation, betablockers, or ACEI at this time. - Elevated troponin at 1.12 - likely due to new finding of stroke - EKG changes: sinus tachy with T wave depressions noted Electrolyte Abnormalities due to Sepsis (Hypocalcemia, Hypomagnesemia, Hypophosphatemia) - Corrected calcium is 7.7 today; repleted - Mg 1.6; repleted - Phos 1.9; repleted - Nephro consulted. Recs appreciated. DVT ppx: SCD GI ppx: PTX Dispo: continue to monitor patient in the ICU. PT recommends acute rehab. Case was discussed and reviewed with Attending Physician, Dr. Hoyos <Ila Hoyos - Last Filed: 07/17/18 07:53> Objective - Vital Signs/Intake and Output Vital Signs (last 24 hours): Temp Pulse Resp BP Pulse Ox 98.7 F 81 18 82/50 L 96 07/16/18 20:00 07/16/18 22:00 07/16/18 18:56 07/16/18 18:46 07/16/18 17:00 - Medications Medications: Current Medications Calcium/Vitamin D (Oscal-D 250 Mg-125 Units Tab) 1 tab PO BID [facility] Last Admin: 07/16/18 17:43 Dose: 1 tab Furosemide (Lasix) 20 mg PO DAILY [facility] Guaifenesin (Robitussin) 100 mg PO Q4H PRN PRN Reason: Cough Last Admin: 07/15/18 00:35 Dose: 100 mg Hydrocortisone Sodium Succinate (Solu-Cortef) 50 mg IVP Q6 [facility] Last Admin: 07/17/18 06:26 Dose: 50 mg Dexmedetomidine HCl (Precedex 400mcg/100ml) 400 mcg in 100 mls @ 2.767 mls/hr IV .Q24H PRN; Protocol PRN Reason: Agitation Last Admin: 07/14/18 06:40 Dose: 0.2 mcg/kg/hr, 2.767 mls/hr Micafungin Sodium 100 mg/ (Sodium Chloride) 100 mls @ 100 mls/hr IV DAILY [facility]; Protocol Stop: 07/22/18 11:01 Last Admin: 07/16/18 09:39 Dose: 100 mls/hr Meropenem (Merrem Iv 1 Gm Premix) 1 gm in 50 mls @ 100 mls/hr IVPB 0200,1000,1800 [facility]; Protocol Last Admin: 07/17/18 03:37 Dose: 100 mls/hr Insulin Human Regular (Humulin R High) 0 units SC ACHS [facility]; Protocol Last Admin: 07/16/18 21:57 Dose: 2 u Midodrine (Proamatine) 10 mg PO TID [facility] Last Admin: 07/16/18 17:44 Dose: 10 mg Morphine Sulfate (Morphine) 2 mg IVP Q4H PRN PRN Reason: Pain, moderate (4-7) Last Admin: 07/17/18 03:35 Dose: 2 mg Multivitamins/Minerals (Therapeutic-M Tab) 1 tab PO 0800 [facility] Ondansetron HCl (Zofran Inj) 4 mg IVP Q6H PRN PRN Reason: Nausea/Vomiting Last Admin: 07/12/18 06:20 Dose: 4 mg Oxycodone/Acetaminophen (Percocet 5/325 Mg Tab) 1 tab PO Q4H PRN PRN Reason: Pain, moderate (4-7) Stop: 07/20/18 03:48 Pantoprazole Sodium (Protonix Ec Tab) 40 mg PO 0600 [facility] Last Admin: 07/17/18 06:29 Dose: 40 mg Potassium Phos/Sodium Phos (Neutra-Phos) 1 pkt PO TID [facility] Pregabalin (Lyrica) 50 mg PO HS [facility] Last Admin: 07/16/18 21:57 Dose: 50 mg Psyllium Hydrophilic Mucilloid (Hydrocil Instant) 1 pkt PO BID [facility] - Labs Labs: 07/17/18 05:31 07/17/18 05:31 PT 16.3 SECONDS (9.4-12.5) H 07/11/18 05:30 INR 1.41 07/11/18 05:30 APTT 24.2 Seconds (25.1-36.5) L 07/11/18 05:30 Attending/Attestation - Attestation I have personally seen and examined this patient.: Yes I have fully participated in the care of the patient.: Yes I have reviewed all pertinent clinical information, including history, physical exam and plan: Yes Notes (Text): 07/16/18 72 year old female with past medical history of UTI, nephrolithiasis, diabetes, and history of subdural hematoma who presented with fever and chills. She was found to have septic shock secondary to gram negative bacteremia and UTI and admitted to the ICU. BP did not respond initially to fluid resuscitation and sh e was started on pressors. Continue with iv antibiotics as per ID. Blood culture is growing E Coli x 2 and UCx is growing Proteus Mirabilis and Enterobacter Faecalis. Repeat UCx grew yeast species and patient is started on micafungin. CT abd/pelvis showed large stone (24x32 mm) in the right renal pelvis and 3 separate 5 mm stones in the right distal ureter adjacent to the ureteral stent; left ureteral stent with 10 mm stone within proximal pigtail; no hydronephrosis. Renal ultrasound showed bilateral proximal ureteral stones, larger on right; and small bilateral non-obstructing stones. Urology is following; consider urological intervention once patient is more stable. CT head showed small amount of subarachnoid hemorrhage in the left frontal lobe. Neurosurgery was notified; no acute intervention. MRI brain showed small multifocal late acute / subacute cortical infarctions in the high frontal parietal and to a lesser extent occipital cortex. CTA head/neck were unremarkable. Neurology is following. PT evaluation was appreciated who recommended acute rehab. Patient also has thrombocytopenia. Will continue to monitor closely and transfuse as needed. Hematology evaluation was requested. Also noted to have elevated troponin, possible NSTEMI. Cardiology is following. Patient is not candidate for aspirin or anticoagulation secondary to SAH and thrombocytopenia. Echocardiogram showed systolic funditon severely impaired (EF 30%); global hypokinesis of the left ventricle. Today patient noted to have significant peripheral edema. Case discussed with nephrology; consider starting low dose lasix tomorrow if BP tolerates. Will replete and repeat lytes. Overall prognosis is guarded. Ila Hoyos MD Hospitalist.
[2018-07-16] MEDS: Potassium & Sodium Phosphate PO SCH ×3 (09:35→17:40)
[2018-07-16] MEDS: Calcium-Vit D 250 mg-125 Units Tab UD PO SCH ×2 (09:36→17:43)
[2018-07-16] MEDS: Meropenem IV 1 gm in NS 1 GM/50 ML BAG IVPB SCH ×3 (09:36→18:54)
[2018-07-16] MEDS: Micafungin 100 MG in Sodium Chloride 0.9% 100 ML IV SCH (09:39)
--- NOTE | 2018-07-16 09:58 | PCM.STROKE ---
<GuilhermeCliff - Last Filed: 07/16/18 17:38> Interval History - Treatment DVT Prophylaxis: Sequential compression device in place bilaterally - Education Written Stroke Education provided regarding: personal risk factors, stroke warning sign/symptoms, how to activate emergency medical services, need to follow up after discharge NIHSS Stroke Scale - Date/Time Evaluation Performed Date Performed: 07/12/18 Time Performed: 20:00 When Was NIHSS Performed: Re-evaluation - How Severe is the Stroke Level of Consciousness: 0=Alert LOC to Questions: 0=Both comments correct LOC to commands: 0=Obeys both correctly Best Gaze: 0=Normal Visual: 0=No visual loss Facial: 0=Normal Motor Arm - Left: 0=No drift Motor Arm - Right: 3=No effort against gravity (falls immediately) Motor Leg - Left: 0=No drift Motor Leg - Right: 3=No effort against gravity (falls immediately) Limb Ataxia: 0=Absent Sensory: 0=Normal Best Language: 0=No aphasia Dysarthia: 0=Normal articulation Extinction & Inattention (Neglect): 0=Normal, no object Score: 6 Exam - Vital Sign Vital Signs: Temp Pulse Resp BP Pulse Ox 98.5 F 89 20 106/55 L 87 L 07/16/18 04:00 07/16/18 08:30 07/16/18 08:30 07/16/18 08:30 07/16/18 08:30 Constitutional: No distress Right Pupil: Reactive Cardiovascular: Regular rate & rhythm Mental Status: Normal: Orientation Cranial Nerve: Normal: Extraocular movement intact, Facial Sensation Neuro motor strength exam: Left Upper Extremity: 5, Right Upper Extremity: 2/1, Left Lower Extremity: 5, Right Lower Extremity: 2/1 Coordination: Finger/nose Vascular Risk: Diabetes Mellitus - Data reviewed Laboratory results: 07/16/18 05:30 07/16/18 05:30 Triglycerides 119 mg/dL (35-160) 07/13/18 05:00 Cholesterol 66 mg/dL (130-200) L 07/13/18 05:00 LDL Cholesterol Direct < 30 mg/dL (0-129) 07/13/18 05:00 HDL Cholesterol 30 mg/dL (29-60) 07/13/18 05:00 Assessment and Plan - Assessment and Plan (Free Text) Assessment: Assessment and Plan: Patient is a 72 year old female with PMHx of recurrent nephrolithiasis, recurrent UTIs, ureterovesicular reflux, DM2, Crohn's disease, h/o subdural hematoma brought in by EMS for evaluation and treatment of fever/chills/diarrhea x 2days. Neurology team was consulted for management of subarachnoid hemorrhage found on imaging. SAH - 07/11/[address] without Contrast - Small amount of subarachnoid hemorrhage in the left frontal lobe. - 07/12/2018 CTA head and neck- Calcified intra cavernous segments of the internal carotid arteries - 07/14/2018 Brain MRI without contrast- small multifocal late acute/subacute cortical infarctions in the high frontal, parietal and to a lesser extent occipital cortex. Redemonstration of small left frontal subarachnoid hemorrhage - LESLY ordered and pending AMS - resolved, likely secondary to septic shock Patient seen, case discussed with, and plan approved by attending physician, Dr. Fuchs. <Reji Fuchs - Last Filed: 07/17/18 17:44> Interval History - Education Written Stroke Education provided regarding: personal risk factors, stroke warning sign/symptoms, how to activate emergency medical services, need to follow up after discharge Exam - Vital Sign Vital Signs: Temp Pulse Resp BP Pulse Ox 98.4 F 69 17 100/49 L 98 07/17/18 08:00 07/17/18 14:15 07/17/18 14:15 07/17/18 14:15 07/17/18 14:15 - Data reviewed Laboratory results: 07/17/18 05:31 07/17/18 05:31 Triglycerides 119 mg/dL (35-160) 07/13/18 05:00 Cholesterol 66 mg/dL (130-200) L 07/13/18 05:00 LDL Cholesterol Direct < 30 mg/dL (0-129) 07/13/18 05:00 HDL Cholesterol 30 mg/dL (29-60) 07/13/18 05:00 Attending/Attestation - Attestation I have personally seen and examined this patient.: Yes I have fully participated in the care of the patient.: Yes I have reviewed all pertinent clinical information, including history, physical exam and plan: Yes Notes (Text): 07/17/18 17:44 I agree with the assessment and plan. Likely toxic-metabolic encephalopathy in addition to infarcts and subarachnoid. We need to rule out septic emboli with LESLY.
--- NOTE | 2018-07-16 10:06 | PN ---
DATE: 07/16/2018 SUBJECTIVE: The patient was seen and examined at bedside. She is comfortable. She is alert, awake, following commands. She is about to enjoy her breakfast. As per discussion with Neurology resident and the nurse, her mental status much better than yesterday and day before yesterday. PHYSICAL EXAMINATION: ENT: Head and neck atraumatic. LUNGS: Clear to auscultation bilaterally. HEART: Regular rate and rhythm. S1 and S2 normal. ABDOMEN: Soft, nontender and nondistended. MUSCULOSKELETAL: No C/C/E. NEURO: The patient moves all extremities spontaneously. SKIN: Moist. PSYCH: The patient is alert, awake and oriented x3. VITAL SIGNS: Blood pressure 106/55, oxygen saturation 94% on 2 L nasal cannula, heart rate 91, respiratory rate 18. LABORATORY DATA: WBC 6.6, hemoglobin 10, platelet count 26 (provided that the patient has subarachnoid hemorrhage even though stable and the patient appears to be asymptomatic. I will transfuse one pack of platelets while waiting for Dr. Wynn's recommendations). Sodium 141; potassium 4.2; chloride 114; carbon dioxide 22; BUN 13; creatinine 0.9, down from 1; AST 44; ALT 40; total bilirubin 1.8. MEDICATIONS: Calcium with vitamin D, Precedex as needed, Robitussin p.r.n., hydrocortisone 50 mg IV every 6 (the patient is known to have been receiving steroids as an outpatient and as the patient has borderline low normotension, steroids were started). Meropenem, micafungin, midodrine 10 mg p.o. t.i.d., morphine p.r.n., norepinephrine (just stopped), Protonix, potassium supplementation, phosphorus supplementation, Lyrica. ASSESSMENT AND PLAN: This is a 72-year-old lady who presented with severe sepsis/septic shock secondary to urinary tract infection due to Escherichia coli complicated by Escherichia coli bacteremia and septic encephalopathy who was coincidentally found to have stable subarachnoid bleed in the setting of thrombocytopenia, which may or may not have been caused by severe sepsis. At present time, the patient's mental status substantially improved. Neurology service is on board. The patient is about to enjoy her breakfast. Her norepinephrine was stopped, midodrine dose increased to 10 mg p.o. t.i.d, stress dose steroids were started as she has been on termite treater helper steroids prior to ICU admission. It will be tapered though. I will transfuse 1 bag of platelets in light of the patient's thrombocytopenia and subarachnoid bleed even though stable, while Dr. Wynn's recommendations are pending. We will continue to target euvolemia, euglycemia, normothermia and oxygen saturation more than 90%. The patient is on meropenem and intermittent vancomycin. Renal function appears to be stabilized and improving. We will continue to maintain blood glucose within 140-180 range according to night sugar trial. We will avoid anticoagulants in the setting of thrombocytopenia and some subarachnoid bleed. GI prophylaxis will be continued. The patient is protecting her airways. ccm time 40 min Harris Torrez MD MTDD
--- NOTE | 2018-07-16 12:20 | RAD ---
Date of service: 07/16/2018 PROCEDURE: Right Ankle Radiographs. HISTORY: Pain, poss fall COMPARISON: None available. FINDINGS: BONES: Normal. No fracture. JOINTS: Normal. No osteoarthritis. Ankle mortise maintained. Talar dome intact SOFT TISSUES: Normal. OTHER FINDINGS: None. IMPRESSION: Normal right ankle radiographs.
[2018-07-16 12:35] LABS: VENOUS BLOOD GAS BASE EXCESS -5.9 mmol/L (0.0-2.0); VENOUS BLOOD GAS PO2 46 mm/Hg (30-55); VENOUS BLOOD PH 7.36 (7.32-7.43)
--- NOTE | 2018-07-16 13:08 | PN ---
DATE: 07/16/2018 CARDIOLOGY FOLLOWUP SUBJECTIVE: The patient is awake, alert. No shortness of breath. No chest pain. PHYSICAL EXAMINATION: VITAL SIGNS: The blood pressure is 100, heart rate is in the 90s. NECK: Negative JVD. LUNGS: Decreased breath sounds without rales. HEART: Reveals S1 and S2. EXTREMITIES: Without edema. LABORATORY DATA: Hemoglobin is 10. BUN and creatinine unremarkable. IMPRESSION: 1. Cerebrovascular accident. 2. [id number] myocardial infarction. 3. Dilated cardiomyopathy. 4. Anemia. 5. Weakness. PLAN: Given these findings, the patient is hemodynamically stable. We will continue treating her coronary disease medically especially given her subarachnoid bleed. Carter Farmer MD
--- NOTE | 2018-07-16 13:35 | CP.CCUPN ---
<Beau Castellanos - Last Filed: 07/16/18 13:49> CCU Subjective - Physician Review Subjective (Free Text): CRITICAL CARE PROGRESS NOTE FOR DR. ANTHONY Castellanos PGY-1 Pt seen and examined at bedside this am. She is arousable, however does not respond to ROS or questions. She is currently on 5mcg/kg levophed and 0.2 mcg/kh/hr precedex. She was unable to complete her MRI yesterday d/t agitation. CCU Objective - Vital Signs / Intake & Output Vital Signs (Last 4 hours): Vital Signs Temp Pulse Resp BP Pulse Ox 07/16/18 12:57 98.2 F 82 17 95/50 L 07/16/18 12:30 83 18 101/61 92 L 07/16/18 12:00 82 17 107/65 88 L 07/16/18 11:43 83 16 07/16/18 11:42 86 28 H 07/16/18 11:30 85 18 94/54 L 92 L 07/16/18 11:00 83 17 93/52 L 99 07/16/18 10:30 87 18 98/58 L 98 07/16/18 10:00 84 16 91/42 L 100 07/16/18 09:54 90 21 07/16/18 09:53 87 23 07/16/18 09:41 93 H 24 07/16/18 09:40 98 H 20 07/16/18 09:39 95 H 18 07/16/18 09:38 96 H 19 07/16/18 09:37 98 H 23 07/16/18 09:36 97 H 21 Intake and Output (Last 8hrs): Intake & Output 07/15/18 07/16/18 07/16/18 22:59 06:59 14:59 Intake Total 1950 1490 60 Output Total 1300 1100 Balance 650 390 60 Weight 58.695 kg Intake: IV 450 490 60 Right Internal Jugular 450 490 Oral 1500 1000 Output: Urine 1300 1100 Urethral (Zendejas) 1300 1100 Other: # Bowel Movements 4 - Physical Exam Head: Positive for: Atraumatic, Normocephalic Pupils: Positive for: PERRL Extroacular Muscles: Positive for: EOMI Conjunctiva: Positive for: Normal Mouth: Positive for: Moist Mucous Membranes Neck: Positive for: Normal Range of Motion Respiratory/Chest: Positive for: Clear to Auscultation, Good Air Exchange. Negative for: Respiratory Distress, Accessory Muscle Use Cardiovascular: Positive for: Regular Rate and Rhythm, Normal S1, S2. Negative for: Murmurs Abdomen: Negative for: Tenderness, Distention, Peritoneal Signs Back: Positive for: Normal Inspection Upper Extremity: Positive for: Normal Inspection. Negative for: Cyanosis, Edema Lower Extremity: Positive for: Swelling (Swelling to ankles bilaterally). Negative for: Edema Neurological: Positive for: GCS=15, CN II-XII Intact, Speech Normal Skin: Positive for: Dry, Normal Color, Hot (to touch). Negative for: Rashes Psychiatric: Positive for: Alert, Oriented x 3, Normal Insight, Normal Concentration - Medications Active Medications: Active Medications Generic Name Dose Route Start Last Admin Trade Name Freq PRN Reason Stop Dose Admin Calcium/Vitamin D 1 tab 07/14/18 10:00 07/16/18 09:36 Oscal-D 250 Mg-125 Units Tab PO 1 tab BID AGNES Administration Guaifenesin 100 mg 07/14/18 23:30 07/15/18 00:35 Robitussin PO 100 mg Q4H PRN Administration Cough Hydrocortisone Sodium Succinate 50 mg 07/16/18 12:00 Solu-Cortef IVP Q6 AGNES NOREPINEPHRINE BIT/0.9 % NACL 4 mg in 250 mls @ 15 mls/hr 07/11/18 11:47 07/16/18 07:00 Levophed 4 Mg/ 250 Ml Ns Premixed IV 2 mcg/min .[id number] PRN 7.5 mls/hr TITRATE PER MD ORDER Titration Protocol 4 MCG/MIN Dexmedetomidine HCl 400 mcg in 100 mls @ 2.767 mls/hr 07/12/18 18:19 07/14/18 06:40 Precedex 400mcg/100ml IV 0.2 mcg/kg/hr .Q24H PRN 2.767 mls/hr Agitation Administration Protocol 0.2 MCG/KG/HR Micafungin Sodium 100 mg/ 100 mls @ 100 mls/hr 07/15/18 11:00 07/16/18 09:39 Sodium Chloride IV 07/22/18 11:01 100 mls/hr DAILY AGNES Administration Protocol Meropenem 1 gm in 50 mls @ 100 mls/hr 07/16/18 14:00 Merrem Iv 1 Gm Premix IVPB Q8 [facility] Protocol Insulin Human Regular 0 units 07/13/18 11:30 07/16/18 08:28 Humulin R High SC Not Given ACHS [facility] Protocol Midodrine 10 mg 07/16/18 08:28 07/16/18 09:36 Proamatine PO 10 mg TID AGNES Administration Morphine Sulfate 2 mg 07/12/18 17:27 07/16/18 12:06 Morphine IVP 2 mg Q6H PRN Administration Pain, severe (8-10) Ondansetron HCl 4 mg 07/12/18 06:07 07/12/18 06:20 Zofran Inj IVP 4 mg Q6H PRN Administration Nausea/Vomiting Pantoprazole Sodium 40 mg 07/16/18 06:00 07/16/18 06:04 Protonix Ec Tab PO 40 mg 0600 AGNES Administration Potassium Phos/Sodium Phos 2 pkt 07/16/18 10:00 07/16/18 09:35 Neutra-Phos PO 2 pkt TID AGNES Administration Pregabalin 50 mg 07/15/18 20:54 07/15/18 21:07 Lyrica PO 50 mg HS AGNES Administration - Patient Studies Lab Studies: Microbiology Studies 07/13/18 09:20 Blood Culture - Preliminary Blood-Venous NO GROWTH AFTER 3 DAYS 07/13/18 09:10 Blood Culture - Preliminary Blood-Venous NO GROWTH AFTER 3 DAYS Lab Studies 07/16/18 07/16/18 07/16/18 Range/Units 12:30 10:13 08:30 WBC (4.5-11.0) 10^3/uL RBC (3.5-6.1) 10^6/uL Hgb (12.0-16.0) g/dL Hct (36.0-48.0) % MCV (80.0-105.0) fl MCH (25.0-35.0) pg MCHC (31.0-37.0) g/dl RDW (11.5-14.5) % Plt Count (120.0-450.0) 10^3/uL Gran % (50.0-68.0) % Lymph % (Auto) (22.0-35.0) % [place] % (Auto) (1.0-6.0) % Eos % (Auto) (1.5-5.0) % Baso % (Auto) (0.0-3.0) % Gran # (1.4-6.5) Lymph # (Auto) (1.2-3.4) [place] # (Auto) (0.1-0.6) Eos # (Auto) (0.0-0.7) Baso # (Auto) (0.0-2.0) K/mm3 pO2 46 (30-55) mm/Hg VBG pH 7.36 (7.32-7.43) VBG pCO2 33.0 L (40-60) VBG HCO3 18.6 L (21-28) mmol/l VBG Total CO2 19.6 L (22-28) mmol.L VBG O2 Sat (Calc) 85.0 H (40-65) % VBG Base Excess -5.9 L (0.0-2.0) mmol/L VBG Potassium 4.5 (3.6-5.2) mmol/L Sodium 138.0 (132-148) mmol/L Chloride 110.0 H (98-107) mmol/L Glucose 277 H (65-105) mg/dl Lactate 2.1 (0.7-2.1) mmol/L FiO2 21.0 % Potassium (3.6-5.0) mmol/L Carbon Dioxide (21-33) mmol/L Anion Gap (10-20) BUN (7-21) mg/dL Creatinine (0.7-1.2) mg/dl Est GFR ( Amer) Est GFR (Non-Af Amer) POC Glucose (mg/dL) (65-110) mg/dL Random Glucose (70-110) mg/dL Calcium (8.4-10.5) mg/dL Phosphorus (2.5-4.5) mg/dL Magnesium (1.7-2.2) mg/dL Total Bilirubin (0.2-1.3) mg/dL AST (14-36) U/L ALT (7-56) U/L Alkaline Phosphatase (38-126) U/L Total Protein (5.8-8.3) g/dL Albumin (3.0-4.8) g/dL Globulin gm/dL Albumin/Globulin Ratio (1.1-1.8) Venous Blood Potassium 4.5 (3.6-5.2) mmol/L Random Vancomycin 7.2 L (20-40) ug/mL Blood Type A NEGATIVE Antibody Screen Negative BBK History Checked Patient has bt 07/16/18 07/16/18 07/15/18 Range/Units 05:30 05:30 15:40 WBC 6.6 (4.5-11.0) 10^3/uL RBC 3.24 L (3.5-6.1) 10^6/uL Hgb 10.0 L (12.0-16.0) g/dL Hct 30.7 L (36.0-48.0) % MCV 94.8 (80.0-105.0) fl MCH 30.9 (25.0-35.0) pg MCHC 32.6 (31.0-37.0) g/dl RDW 14.2 (11.5-14.5) % Plt Count 26 L* (120.0-450.0) 10^3/uL Gran % 69.9 H (50.0-68.0) % Lymph % (Auto) 16.6 L (22.0-35.0) % [place] % (Auto) 11.8 H (1.0-6.0) % Eos % (Auto) 1.5 (1.5-5.0) % Baso % (Auto) 0.2 (0.0-3.0) % Gran # 4.63 (1.4-6.5) Lymph # (Auto) 1.1 L (1.2-3.4) [place] # (Auto) 0.8 H (0.1-0.6) Eos # (Auto) 0.1 (0.0-0.7) Baso # (Auto) 0.01 (0.0-2.0) K/mm3 pO2 190 H (30-55) mm/Hg VBG pH 7.36 (7.32-7.43) VBG pCO2 33.0 L (40-60) VBG HCO3 18.6 L (21-28) mmol/l VBG Total CO2 19.6 L (22-28) mmol.L VBG O2 Sat (Calc) 99.4 H (40-65) % VBG Base Excess -5.9 L (0.0-2.0) mmol/L VBG Potassium 2.9 L (3.6-5.2) mmol/L Sodium 141 140.0 (132-148) mmol/L Chloride 114 H 111.0 H (98-107) mmol/L Glucose 190 H (65-105) mg/dl Lactate 3.0 H (0.7-2.1) mmol/L FiO2 21.0 % Potassium 4.2 (3.6-5.0) mmol/L Carbon Dioxide 22 (21-33) mmol/L Anion Gap 9 L (10-20) BUN 13 (7-21) mg/dL Creatinine 0.9 (0.7-1.2) mg/dl Est GFR ( Amer) > 60 Est GFR (Non-Af Amer) > 60 POC Glucose (mg/dL) (65-110) mg/dL Random Glucose 138 H (70-110) mg/dL Calcium 6.1 L* (8.4-10.5) mg/dL Phosphorus 1.9 L (2.5-4.5) mg/dL Magnesium 1.6 L (1.7-2.2) mg/dL Total Bilirubin 1.8 H (0.2-1.3) mg/dL AST 44 H (14-36) U/L ALT 40 (7-56) U/L Alkaline Phosphatase 123 (38-126) U/L Total Protein 4.7 L (5.8-8.3) g/dL Albumin 2.0 L (3.0-4.8) g/dL Globulin 2.7 gm/dL Albumin/Globulin Ratio 0.8 L (1.1-1.8) Venous Blood Potassium 2.9 L (3.6-5.2) mmol/L Random Vancomycin (20-40) ug/mL Blood Type Antibody Screen BBK History Checked 07/14/18 07/14/18 07/14/18 Range/Units 22:16 15:21 12:17 WBC (4.5-11.0) 10^3/uL RBC (3.5-6.1) 10^6/uL Hgb (12.0-16.0) g/dL Hct (36.0-48.0) % MCV (80.0-105.0) fl MCH (25.0-35.0) pg MCHC (31.0-37.0) g/dl RDW (11.5-14.5) % Plt Count (120.0-450.0) 10^3/uL Gran % (50.0-68.0) % Lymph % (Auto) (22.0-35.0) % [place] % (Auto) (1.0-6.0) % Eos % (Auto) (1.5-5.0) % Baso % (Auto) (0.0-3.0) % Gran # (1.4-6.5) Lymph # (Auto) (1.2-3.4) [place] # (Auto) (0.1-0.6) Eos # (Auto) (0.0-0.7) Baso # (Auto) (0.0-2.0) K/mm3 pO2 (30-55) mm/Hg VBG pH (7.32-7.43) VBG pCO2 (40-60) VBG HCO3 (21-28) mmol/l VBG Total CO2 (22-28) mmol.L VBG O2 Sat (Calc) (40-65) % VBG Base Excess (0.0-2.0) mmol/L VBG Potassium (3.6-5.2) mmol/L Sodium (132-148) mmol/L Chloride (98-107) mmol/L Glucose (65-105) mg/dl Lactate (0.7-2.1) mmol/L FiO2 % Potassium (3.6-5.0) mmol/L Carbon Dioxide (21-33) mmol/L Anion Gap (10-20) BUN (7-21) mg/dL Creatinine (0.7-1.2) mg/dl Est GFR ( Amer) Est GFR (Non-Af Amer) POC Glucose (mg/dL) 131 H 144 H 118 H (65-110) mg/dL Random Glucose (70-110) mg/dL Calcium (8.4-10.5) mg/dL Phosphorus (2.5-4.5) mg/dL Magnesium (1.7-2.2) mg/dL Total Bilirubin (0.2-1.3) mg/dL AST (14-36) U/L ALT (7-56) U/L Alkaline Phosphatase (38-126) U/L Total Protein (5.8-8.3) g/dL Albumin (3.0-4.8) g/dL Globulin gm/dL Albumin/Globulin Ratio (1.1-1.8) Venous Blood Potassium (3.6-5.2) mmol/L Random Vancomycin (20-40) ug/mL Blood Type Antibody Screen BBK History Checked 07/14/18 Range/Units 07:38 WBC (4.5-11.0) 10^3/uL RBC (3.5-6.1) 10^6/uL Hgb (12.0-16.0) g/dL Hct (36.0-48.0) % MCV (80.0-105.0) fl MCH (25.0-35.0) pg MCHC (31.0-37.0) g/dl RDW (11.5-14.5) % Plt Count (120.0-450.0) 10^3/uL Gran % (50.0-68.0) % Lymph % (Auto) (22.0-35.0) % [place] % (Auto) (1.0-6.0) % Eos % (Auto) (1.5-5.0) % Baso % (Auto) (0.0-3.0) % Gran # (1.4-6.5) Lymph # (Auto) (1.2-3.4) [place] # (Auto) (0.1-0.6) Eos # (Auto) (0.0-0.7) Baso # (Auto) (0.0-2.0) K/mm3 pO2 (30-55) mm/Hg VBG pH (7.32-7.43) VBG pCO2 (40-60) VBG HCO3 (21-28) mmol/l VBG Total CO2 (22-28) mmol.L VBG O2 Sat (Calc) (40-65) % VBG Base Excess (0.0-2.0) mmol/L VBG Potassium (3.6-5.2) mmol/L Sodium (132-148) mmol/L Chloride (98-107) mmol/L Glucose (65-105) mg/dl Lactate (0.7-2.1) mmol/L FiO2 % Potassium (3.6-5.0) mmol/L Carbon Dioxide (21-33) mmol/L Anion Gap (10-20) BUN (7-21) mg/dL Creatinine (0.7-1.2) mg/dl Est GFR ( Amer) Est GFR (Non-Af Amer) POC Glucose (mg/dL) 116 H (65-110) mg/dL Random Glucose (70-110) mg/dL Calcium (8.4-10.5) mg/dL Phosphorus (2.5-4.5) mg/dL Magnesium (1.7-2.2) mg/dL Total Bilirubin (0.2-1.3) mg/dL AST (14-36) U/L ALT (7-56) U/L Alkaline Phosphatase (38-126) U/L Total Protein (5.8-8.3) g/dL Albumin (3.0-4.8) g/dL Globulin gm/dL Albumin/Globulin Ratio (1.1-1.8) Venous Blood Potassium (3.6-5.2) mmol/L Random Vancomycin (20-40) ug/mL Blood Type Antibody Screen BBK History Checked Laboratory Results - last 24 hr 07/14/18 07/14/18 07/14/18 07:38 12:17 15:21 WBC RBC Hgb Hct MCV MCH MCHC RDW Plt Count Gran % Lymph % (Auto) [place] % (Auto) Eos % (Auto) Baso % (Auto) Gran # Lymph # (Auto) [place] # (Auto) Eos # (Auto) Baso # (Auto) pO2 VBG pH VBG pCO2 VBG HCO3 VBG Total CO2 VBG O2 Sat (Calc) VBG Base Excess VBG Potassium Sodium Chloride Glucose Lactate FiO2 Potassium Carbon Dioxide Anion Gap BUN Creatinine Est GFR ( Amer) Est GFR (Non-Af Amer) POC Glucose (mg/dL) 116 H 118 H 144 H Random Glucose Calcium Phosphorus Magnesium Total Bilirubin AST ALT Alkaline Phosphatase Total Protein Albumin Globulin Albumin/Globulin Ratio Venous Blood Potassium Random Vancomycin Blood Type Antibody Screen BBK History Checked 07/14/18 07/15/18 07/16/18 22:16 15:40 05:30 WBC RBC Hgb Hct MCV MCH MCHC RDW Plt Count Gran % Lymph % (Auto) [place] % (Auto) Eos % (Auto) Baso % (Auto) Gran # Lymph # (Auto) [place] # (Auto) Eos # (Auto) Baso # (Auto) pO2 190 H VBG pH 7.36 VBG pCO2 33.0 L VBG HCO3 18.6 L VBG Total CO2 19.6 L VBG O2 Sat (Calc) 99.4 H VBG Base Excess -5.9 L VBG Potassium 2.9 L Sodium 140.0 141 Chloride 111.0 H 114 H Glucose 190 H Lactate 3.0 H FiO2 21.0 Potassium 4.2 Carbon Dioxide 22 Anion Gap 9 L BUN 13 Creatinine 0.9 Est GFR ( Amer) > 60 Est GFR (Non-Af Amer) > 60 POC Glucose (mg/dL) 131 H Random Glucose 138 H Calcium 6.1 L* Phosphorus 1.9 L Magnesium 1.6 L Total Bilirubin 1.8 H AST 44 H ALT 40 Alkaline Phosphatase 123 Total Protein 4.7 L Albumin 2.0 L Globulin 2.7 Albumin/Globulin Ratio 0.8 L Venous Blood Potassium 2.9 L Random Vancomycin Blood Type Antibody Screen BBK History Checked 07/16/18 07/16/18 07/16/18 05:30 08:30 10:13 WBC 6.6 RBC 3.24 L Hgb 10.0 L Hct 30.7 L MCV 94.8 MCH 30.9 MCHC 32.6 RDW 14.2 Plt Count 26 L* Gran % 69.9 H Lymph % (Auto) 16.6 L [place] % (Auto) 11.8 H Eos % (Auto) 1.5 Baso % (Auto) 0.2 Gran # 4.63 Lymph # (Auto) 1.1 L [place] # (Auto) 0.8 H Eos # (Auto) 0.1 Baso # (Auto) 0.01 pO2 VBG pH VBG pCO2 VBG HCO3 VBG Total CO2 VBG O2 Sat (Calc) VBG Base Excess VBG Potassium Sodium Chloride Glucose Lactate FiO2 Potassium Carbon Dioxide Anion Gap BUN Creatinine Est GFR ( Amer) Est GFR (Non-Af Amer) POC Glucose (mg/dL) Random Glucose Calcium Phosphorus Magnesium Total Bilirubin AST ALT Alkaline Phosphatase Total Protein Albumin Globulin Albumin/Globulin Ratio Venous Blood Potassium Random Vancomycin 7.2 L Blood Type A NEGATIVE Antibody Screen Negative BBK History Checked Patient has bt 07/16/18 12:30 WBC RBC Hgb Hct MCV MCH MCHC RDW Plt Count Gran % Lymph % (Auto) [place] % (Auto) Eos % (Auto) Baso % (Auto) Gran # Lymph # (Auto) [place] # (Auto) Eos # (Auto) Baso # (Auto) pO2 46 VBG pH 7.36 VBG pCO2 33.0 L VBG HCO3 18.6 L VBG Total CO2 19.6 L VBG O2 Sat (Calc) 85.0 H VBG Base Excess -5.9 L VBG Potassium 4.5 Sodium 138.0 Chloride 110.0 H Glucose 277 H Lactate 2.1 FiO2 21.0 Potassium Carbon Dioxide Anion Gap BUN Creatinine Est GFR ( Amer) Est GFR (Non-Af Amer) POC Glucose (mg/dL) Random Glucose Calcium Phosphorus Magnesium Total Bilirubin AST ALT Alkaline Phosphatase Total Protein Albumin Globulin Albumin/Globulin Ratio Venous Blood Potassium 4.5 Random Vancomycin Blood Type Antibody Screen BBK History Checked Fingerstick Blood Sugar Results: 164 Critical Care Progress Note - Nutrition Nutrition: Nutrition Category Date Time Status Diabetic [Consistent Carbohydrate] [DIET] Diets 07/11/18 Dinner Ordered Assessment/Plan - Assessment and Plan (Free Text) Assessment: 72 y/o F with PMHx of recurrent nephrolithiasis, recurrent UTI/urosepsis with indwelling stents, L vesicoureteral reflux, DM2, Crohn's disease, h/o subdural hematoma, pancytopenia admitted to ICU for septic shock, likely secondary to urosepsis in the setting of recurrent nephrolithiasis and ureterovesicular reflux. She was also found to have stable subarachniod bleed in the setting of thrombocytopenia which may/may not have been caused by sepsis Plan: Neuro: AxO x 3 GCS15 Mental status improved Subarachnoid hemorrhage seen on previous CT scan Neurology following Tolerating breakfast Reorient frequently Fall precautions Cardiovascular: Discontinue norepinephrine midodrine increased to 10mg po tid Stress dose steroids start as she has been on long-term steroids prior to ICU admission. currently bp@ 90s/40s. At baseline blood pressure R IJ triple lumen catheter in place Echo reveals reduced LVEF: 39% No cardiac intervention at this time d/t thrombocytopenia Maintain MAP >60 Respiratory: Saturating well on 2L RA NC maintain SpO2> 90% Able to maintain airway Lungs CTA b/l. No active pulmonary disease on Chest xray treat underlying sepsis Trend VBG w/ lactate GI: soft diet protonix IVP for GI PPx C. Diff antigen/toxin negative /Renal: -Recurrent nephrolithiasis/UTI Renal ultrasound: b/l proximal ureteric stones. b/l renal stones. b/l pelvic fullness/trace hydronephrosis more on the left side Plans discussed with IR-Dr. Valera, Urology-Dr. Win, no plans for percutaneous drainage at the moment Zendejas catheter urine culture: proteus mirabilis, e. faecium meropenem per ID recs Urology/nephro recs appreciated lactate downtrending Maintain euvolemia replete electrolytes prn Monitor I/Os. Maintain urine output >0.5 ml/kg/hr ID: -Septic shock 2/2 urosepsis Hx of recurrent UTI/nephrolithiasis blood culture: e. coli urine culture: proteus mirabilis, e. faecium Afebrile. leukocytosis resolved. Lactate improved R IJ triple lumen catheter in place Being treated with broad spectrum vancomycin, meropenem, f/u ID recs Endocrine: Maintain euglycemia 110-180 per NICE-SUGAR trial Cont RISS Heme: H/H stable transfuse 1u platelets f/u heme recs avoid anticoagulants in the setting of thrombocytopenia and subarachnoid bleed DVT/GI Ppx: SCD/Protonix Dispo: Pt to remain in ICU for close monitoring. Continue to monitor mental status. Case seen, examined and discussed with attending physician, Dr. Torrez <Harris Torrez - Last Filed: 07/16/18 18:01> CCU Objective - Vital Signs / Intake & Output Vital Signs (Last 4 hours): Vital Signs Pulse Resp BP Pulse Ox 07/16/18 17:52 83 20 07/16/18 17:51 85 22 07/16/18 17:50 93 H 19 07/16/18 17:49 87 18 07/16/18 17:48 80 19 07/16/18 17:47 81 17 07/16/18 17:46 84 20 07/16/18 17:45 106/56 L 07/16/18 17:44 82 20 07/16/18 17:43 83 19 07/16/18 17:42 80 20 07/16/18 17:41 90 17 07/16/18 17:40 91 H 18 07/16/18 17:39 87 21 07/16/18 17:38 89 19 07/16/18 17:37 87 19 07/16/18 17:36 91 H 21 07/16/18 17:35 88 21 07/16/18 17:34 85 23 07/16/18 17:33 88 30 H 07/16/18 17:32 85 22 07/16/18 17:31 86 27 H 07/16/18 17:30 116/64 07/16/18 17:29 88 29 H 07/16/18 17:28 84 20 07/16/18 17:27 86 24 07/16/18 17:26 83 21 07/16/18 17:25 85 07/16/18 17:24 89 24 07/16/18 17:23 81 22 07/16/18 17:22 82 27 H 07/16/18 17:21 79 20 07/16/18 17:20 83 24 07/16/18 17:19 85 27 H 07/16/18 17:18 84 18 07/16/18 17:17 88 21 07/16/18 17:16 78 21 07/16/18 17:15 103/62 07/16/18 17:14 83 25 H 07/16/18 17:13 86 07/16/18 17:12 83 23 07/16/18 17:11 83 21 07/16/18 17:10 78 18 07/16/18 17:00 77 17 101/56 L 96 07/16/18 16:45 76 17 100/58 L 97 07/16/18 16:30 78 20 101/55 L 95 07/16/18 16:15 80 19 98 07/16/18 14:15 79 20 101/50 L 96 Intake and Output (Last 8hrs): Intake & Output 07/16/18 07/16/18 07/16/18 06:59 14:59 22:59 Intake Total 1490 60 Output Total 1100 Balance 390 60 Weight 129 lb 6.4 oz Intake: IV 490 60 Right Internal Jugular 490 Oral 1000 Output: Urine 1100 Urethral (Zendejas) 1100 - Medications Active Medications: Active Medications Generic Name Dose Route Start Last Admin Trade Name Freq PRN Reason Stop Dose Admin Calcium/Vitamin D 1 tab 07/14/18 10:00 07/16/18 17:43 Oscal-D 250 Mg-125 Units Tab PO 1 tab BID AGNES Administration Furosemide 20 mg 07/17/18 10:00 Lasix PO DAILY AGNES Guaifenesin 100 mg 07/14/18 23:30 07/15/18 00:35 Robitussin PO 100 mg Q4H PRN Administration Cough Hydrocortisone Sodium Succinate 50 mg 07/16/18 12:00 07/16/18 17:45 Solu-Cortef IVP 50 mg Q6 AGNES Administration NOREPINEPHRINE BIT/0.9 % NACL 4 mg in 250 mls @ 15 mls/hr 07/11/18 11:47 07/16/18 07:00 Levophed 4 Mg/ 250 Ml Ns Premixed IV 2 mcg/min .[id number] PRN 7.5 mls/hr TITRATE PER MD ORDER Titration Protocol 4 MCG/MIN Dexmedetomidine HCl 400 mcg in 100 mls @ 2.767 mls/hr 07/12/18 18:19 07/14/18 06:40 Precedex 400mcg/100ml IV 0.2 mcg/kg/hr .Q24H PRN 2.767 mls/hr Agitation Administration Protocol 0.2 MCG/KG/HR Micafungin Sodium 100 mg/ 100 mls @ 100 mls/hr 07/15/18 11:00 07/16/18 09:39 Sodium Chloride IV 07/22/18 11:01 100 mls/hr DAILY AGNES Administration Protocol Meropenem 1 gm in 50 mls @ 100 mls/hr 07/16/18 10:00 07/16/18 17:41 Merrem Iv 1 Gm Premix IVPB Not Given 0200,1000,1800 [facility] Protocol Insulin Human Regular 0 units 07/13/18 11:30 07/16/18 17:39 Humulin R High SC 12 u ACHS AGNES Administration Protocol Midodrine 10 mg 07/16/18 08:28 07/16/18 17:44 Proamatine PO 10 mg TID AGNES Administration Ondansetron HCl 4 mg 07/12/18 06:07 07/12/18 06:20 Zofran Inj IVP 4 mg Q6H PRN Administration Nausea/Vomiting Pantoprazole Sodium 40 mg 07/16/18 06:00 07/16/18 06:04 Protonix Ec Tab PO 40 mg 0600 AGNES Administration Potassium Phos/Sodium Phos 2 pkt 07/16/18 10:00 07/16/18 17:40 Neutra-Phos PO 2 pkt TID AGNES Administration Pregabalin 50 mg 07/15/18 20:54 07/15/18 21:07 Lyrica PO 50 mg HS AGNES Administration - Patient Studies Lab Studies: Microbiology Studies 07/13/18 09:20 Blood Culture - Preliminary Blood-Venous NO GROWTH AFTER 3 DAYS 07/13/18 09:10 Blood Culture - Preliminary Blood-Venous NO GROWTH AFTER 3 DAYS Lab Studies 07/16/18 07/16/18 07/16/18 Range/Units 12:30 10:13 08:30 WBC (4.5-11.0) 10^3/uL RBC (3.5-6.1) 10^6/uL Hgb (12.0-16.0) g/dL Hct (36.0-48.0) % MCV (80.0-105.0) fl MCH (25.0-35.0) pg MCHC (31.0-37.0) g/dl RDW (11.5-14.5) % Plt Count (120.0-450.0) 10^3/uL Gran % (50.0-68.0) % Lymph % (Auto) (22.0-35.0) % [place] % (Auto) (1.0-6.0) % Eos % (Auto) (1.5-5.0) % Baso % (Auto) (0.0-3.0) % Gran # (1.4-6.5) Lymph # (Auto) (1.2-3.4) [place] # (Auto) (0.1-0.6) Eos # (Auto) (0.0-0.7) Baso # (Auto) (0.0-2.0) K/mm3 pO2 46 (30-55) mm/Hg VBG pH 7.36 (7.32-7.43) VBG pCO2 33.0 L (40-60) VBG HCO3 18.6 L (21-28) mmol/l VBG Total CO2 19.6 L (22-28) mmol.L VBG O2 Sat (Calc) 85.0 H (40-65) % VBG Base Excess -5.9 L (0.0-2.0) mmol/L VBG Potassium 4.5 (3.6-5.2) mmol/L Glucose 277 H (65-105) mg/dl Lactate 2.1 (0.7-2.1) mmol/L FiO2 21.0 % Sodium 138.0 (132-148) mmol/L Potassium (3.6-5.0) mmol/L Chloride 110.0 H (98-107) mmol/L Carbon Dioxide (21-33) mmol/L Anion Gap (10-20) BUN (7-21) mg/dL Creatinine (0.7-1.2) mg/dl Est GFR ( Amer) Est GFR (Non-Af Amer) POC Glucose (mg/dL) (65-110) mg/dL Random Glucose (70-110) mg/dL Calcium (8.4-10.5) mg/dL Phosphorus (2.5-4.5) mg/dL Magnesium (1.7-2.2) mg/dL Total Bilirubin (0.2-1.3) mg/dL AST (14-36) U/L ALT (7-56) U/L Alkaline Phosphatase (38-126) U/L Total Protein (5.8-8.3) g/dL Albumin (3.0-4.8) g/dL Globulin gm/dL Albumin/Globulin Ratio (1.1-1.8) Venous Blood Potassium 4.5 (3.6-5.2) mmol/L Random Vancomycin 7.2 L (20-40) ug/mL Blood Type A NEGATIVE Antibody Screen Negative BBK History Checked Patient has bt 07/16/18 07/16/18 07/14/18 Range/Units 05:30 05:30 22:16 WBC 6.6 (4.5-11.0) 10^3/uL RBC 3.24 L (3.5-6.1) 10^6/uL Hgb 10.0 L (12.0-16.0) g/dL Hct 30.7 L (36.0-48.0) % MCV 94.8 (80.0-105.0) fl MCH 30.9 (25.0-35.0) pg MCHC 32.6 (31.0-37.0) g/dl RDW 14.2 (11.5-14.5) % Plt Count 26 L* (120.0-450.0) 10^3/uL Gran % 69.9 H (50.0-68.0) % Lymph % (Auto) 16.6 L (22.0-35.0) % [place] % (Auto) 11.8 H (1.0-6.0) % Eos % (Auto) 1.5 (1.5-5.0) % Baso % (Auto) 0.2 (0.0-3.0) % Gran # 4.63 (1.4-6.5) Lymph # (Auto) 1.1 L (1.2-3.4) [place] # (Auto) 0.8 H (0.1-0.6) Eos # (Auto) 0.1 (0.0-0.7) Baso # (Auto) 0.01 (0.0-2.0) K/mm3 pO2 (30-55) mm/Hg VBG pH (7.32-7.43) VBG pCO2 (40-60) VBG HCO3 (21-28) mmol/l VBG Total CO2 (22-28) mmol.L VBG O2 Sat (Calc) (40-65) % VBG Base Excess (0.0-2.0) mmol/L VBG Potassium (3.6-5.2) mmol/L Glucose (65-105) mg/dl Lactate (0.7-2.1) mmol/L FiO2 % Sodium 141 (132-148) mmol/L Potassium 4.2 (3.6-5.0) mmol/L Chloride 114 H (98-107) mmol/L Carbon Dioxide 22 (21-33) mmol/L Anion Gap 9 L (10-20) BUN 13 (7-21) mg/dL Creatinine 0.9 (0.7-1.2) mg/dl Est GFR ( Amer) > 60 Est GFR (Non-Af Amer) > 60 POC Glucose (mg/dL) 131 H (65-110) mg/dL Random Glucose 138 H (70-110) mg/dL Calcium 6.1 L* (8.4-10.5) mg/dL Phosphorus 1.9 L (2.5-4.5) mg/dL Magnesium 1.6 L (1.7-2.2) mg/dL Total Bilirubin 1.8 H (0.2-1.3) mg/dL AST 44 H (14-36) U/L ALT 40 (7-56) U/L Alkaline Phosphatase 123 (38-126) U/L Total Protein 4.7 L (5.8-8.3) g/dL Albumin 2.0 L (3.0-4.8) g/dL Globulin 2.7 gm/dL Albumin/Globulin Ratio 0.8 L (1.1-1.8) Venous Blood Potassium (3.6-5.2) mmol/L Random Vancomycin (20-40) ug/mL Blood Type Antibody Screen BBK History Checked 07/14/18 07/14/18 07/14/18 Range/Units 15:21 12:17 07:38 WBC (4.5-11.0) 10^3/uL RBC (3.5-6.1) 10^6/uL Hgb (12.0-16.0) g/dL Hct (36.0-48.0) % MCV (80.0-105.0) fl MCH (25.0-35.0) pg MCHC (31.0-37.0) g/dl RDW (11.5-14.5) % Plt Count (120.0-450.0) 10^3/uL Gran % (50.0-68.0) % Lymph % (Auto) (22.0-35.0) % [place] % (Auto) (1.0-6.0) % Eos % (Auto) (1.5-5.0) % Baso % (Auto) (0.0-3.0) % Gran # (1.4-6.5) Lymph # (Auto) (1.2-3.4) [place] # (Auto) (0.1-0.6) Eos # (Auto) (0.0-0.7) Baso # (Auto) (0.0-2.0) K/mm3 pO2 (30-55) mm/Hg VBG pH (7.32-7.43) VBG pCO2 (40-60) VBG HCO3 (21-28) mmol/l VBG Total CO2 (22-28) mmol.L VBG O2 Sat (Calc) (40-65) % VBG Base Excess (0.0-2.0) mmol/L VBG Potassium (3.6-5.2) mmol/L Glucose (65-105) mg/dl Lactate (0.7-2.1) mmol/L FiO2 % Sodium (132-148) mmol/L Potassium (3.6-5.0) mmol/L Chloride (98-107) mmol/L Carbon Dioxide (21-33) mmol/L Anion Gap (10-20) BUN (7-21) mg/dL Creatinine (0.7-1.2) mg/dl Est GFR ( Amer) Est GFR (Non-Af Amer) POC Glucose (mg/dL) 144 H 118 H 116 H (65-110) mg/dL Random Glucose (70-110) mg/dL Calcium (8.4-10.5) mg/dL Phosphorus (2.5-4.5) mg/dL Magnesium (1.7-2.2) mg/dL Total Bilirubin (0.2-1.3) mg/dL AST (14-36) U/L ALT (7-56) U/L Alkaline Phosphatase (38-126) U/L Total Protein (5.8-8.3) g/dL Albumin (3.0-4.8) g/dL Globulin gm/dL Albumin/Globulin Ratio (1.1-1.8) Venous Blood Potassium (3.6-5.2) mmol/L Random Vancomycin (20-40) ug/mL Blood Type Antibody Screen BBK History Checked Laboratory Results - last 24 hr 07/14/18 07/14/18 07/14/18 07:38 12:17 15:21 WBC RBC Hgb Hct MCV MCH MCHC RDW Plt Count Gran % Lymph % (Auto) [place] % (Auto) Eos % (Auto) Baso % (Auto) Gran # Lymph # (Auto) [place] # (Auto) Eos # (Auto) Baso # (Auto) pO2 VBG pH VBG pCO2 VBG HCO3 VBG Total CO2 VBG O2 Sat (Calc) VBG Base Excess VBG Potassium Glucose Lactate FiO2 Sodium Potassium Chloride Carbon Dioxide Anion Gap BUN Creatinine Est GFR ( Amer) Est GFR (Non-Af Amer) POC Glucose (mg/dL) 116 H 118 H 144 H Random Glucose Calcium Phosphorus Magnesium Total Bilirubin AST ALT Alkaline Phosphatase Total Protein Albumin Globulin Albumin/Globulin Ratio Venous Blood Potassium Random Vancomycin Blood Type Antibody Screen BBK History Checked 07/14/18 07/16/18 07/16/18 22:16 05:30 05:30 WBC 6.6 RBC 3.24 L Hgb 10.0 L Hct 30.7 L MCV 94.8 MCH 30.9 MCHC 32.6 RDW 14.2 Plt Count 26 L* Gran % 69.9 H Lymph % (Auto) 16.6 L Jun[place] % (Auto) 11.8 H Eos % (Auto) 1.5 Baso % (Auto) 0.2 Gran # 4.63 Lymph # (Auto) 1.1 L [place] # (Auto) 0.8 H Eos # (Auto) 0.1 Baso # (Auto) 0.01 pO2 VBG pH VBG pCO2 VBG HCO3 VBG Total CO2 VBG O2 Sat (Calc) VBG Base Excess VBG Potassium Glucose Lactate FiO2 Sodium 141 Potassium 4.2 Chloride 114 H Carbon Dioxide 22 Anion Gap 9 L BUN 13 Creatinine 0.9 Est GFR ( Amer) > 60 Est GFR (Non-Af Amer) > 60 POC Glucose (mg/dL) 131 H Random Glucose 138 H Calcium 6.1 L* Phosphorus 1.9 L Magnesium 1.6 L Total Bilirubin 1.8 H AST 44 H ALT 40 Alkaline Phosphatase 123 Total Protein 4.7 L Albumin 2.0 L Globulin 2.7 Albumin/Globulin Ratio 0.8 L Venous Blood Potassium Random Vancomycin Blood Type Antibody Screen BBK History Checked 07/16/18 07/16/18 07/16/18 08:30 10:13 12:30 WBC RBC Hgb Hct MCV MCH MCHC RDW Plt Count Gran % Lymph % (Auto) [place] % (Auto) Eos % (Auto) Baso % (Auto) Gran # Lymph # (Auto) [place] # (Auto) Eos # (Auto) Baso # (Auto) pO2 46 VBG pH 7.36 VBG pCO2 33.0 L VBG HCO3 18.6 L VBG Total CO2 19.6 L VBG O2 Sat (Calc) 85.0 H VBG Base Excess -5.9 L VBG Potassium 4.5 Glucose 277 H Lactate 2.1 FiO2 21.0 Sodium 138.0 Potassium Chloride 110.0 H Carbon Dioxide Anion Gap BUN Creatinine Est GFR ( Amer) Est GFR (Non-Af Amer) POC Glucose (mg/dL) Random Glucose Calcium Phosphorus Magnesium Total Bilirubin AST ALT Alkaline Phosphatase Total Protein Albumin Globulin Albumin/Globulin Ratio Venous Blood Potassium 4.5 Random Vancomycin 7.2 L Blood Type A NEGATIVE Antibody Screen Negative BBK History Checked Patient has bt Critical Care Progress Note - Nutrition Nutrition: Nutrition Category Date Time Status Diabetic [Consistent Carbohydrate] [DIET] Diets 07/11/18 Dinner Ordered Attending/Attestation - Attestation I have personally seen and examined this patient.: Yes I have fully participated in the care of the patient.: Yes I have reviewed all pertinent clinical information: Yes Notes (Text): 07/16/18 18:[address] Torrez note
[2018-07-16] MEDS ORDERED: Meropenem IV 1 gm in NS 50 ML IVPB SCH (14:00)
[2018-07-16] MEDS ORDERED: Meropenem IV 1 gm in NS 1 GM/50 ML BAG IVPB SCH (14:00)
--- NOTE | 2018-07-16 14:59 | CP.PCM.PN ---
Subjective - Date & Time of Evaluation Date of Evaluation: 07/16/18 Time of Evaluation: 14:58 - Subjective Subjective: Nephrology Consultation Note: Assessment: stable CODY: improved HAGMA with lactic acidosis Hypokalemia GNR sepsis with shock diabetes Mellitus ( years), b/l kidney stones and recurrent UTIs, gastric bypass surgery, UV reflux, crohns disease, splenomegaly, pancytopenia hypophosphatemia, hypokalemia subarachnoid hemorrhage and acute CVA severe sys CHF LVEF 30% Plan No acute need for renal replacement therapy at this time. Maintain hemodynamics stable. Avoid hypotension. Patient not on ACEI/ARB due to shock Monitor Input/Output, daily weights and renal function with basic metabolic panel supplement lytes as needed renal sono reviewed. ID, IR and urology involved check urine pro/cr and alb/cr legs compressive stockings added low dose lasix from tomorrow as tolerated by BP supplemented Ca, on Oscal D, check Vit D level Dose meds/antibiotics for improved GFR. Glycemic control Further work up/management as per primary team Thanks for allowing me to participate in care of your patient. Will follow patient with you. Please call if any Qs. had d/w team and family Dr Chad Jernigan Office: [phone] Chief Complaint; fever/chills Reason for consult: acidosis and hypokalemia HPI: Pt is a 72 F with hx of diabetes Mellitus ( years), b/l kidney stones and recurrent UTIs, ileum bypass surgery, UV reflux, crohn's disease, splenomegaly, pancytopenia ? HSP presented with complaints of fever and chhills, admitted to ICU with sepsis with shock requiring pressors and lactic acidosis. no knwon OTC/herbal meds or NSAIDs Noted recent iodinated contrast exposure. Noted obvious episodes of low BP. per , pt got sick for last couple of days ROS: pt more awake. c/o some SOB and leg swelling. overall ROS still limited Physical Examination: General Appearance: in no acute respiratory distress, ill appearing Vitals reviewed and noted as below Head; Atraumatic, normocephalic ENT: no ulcers no thrush. Tongue is midline. Oropharynx: no rash or ulcers. EYES: Pupils are equal, round and reactive to light accommodation. Eye muscles and extraocular movement intact. Sclera is anicteric. Neck; supple no lymphadenopathy, no thyromegaly or bruit Lungs: Normal respiratory rate/effort. Breath sounds bilateral decreased at bases with few crackle Heart: Increased rate. s1s2 normal. No rub or gallop. Extremities: 2+ edema. No varicose veins Neurological: Patient is awake but not much communicative Skin: Warm and dry. Normal turgor. No rash. Palpitation: Normal elasticity for age Abdomen: Abdomen is soft. Bowel sounds +. There is no abdominal tenderness, no guarding/rigidity no organomegaly Psych: unable MSK: no joint tenderness or swelling. Digits and nails normal, no deformity : kidney or bladder not palpable Labs/imaging reviewed. Past medical history, past surgical history, family history, social history, allergy reviewed and noted as below Family hx: no hx of CKD. Rest non-contributory Objective - Vital Signs/Intake and Output Vital Signs (last 24 hours): Temp Pulse Resp BP Pulse Ox 98.2 F 79 20 101/50 L 96 07/16/18 12:57 07/16/18 14:15 07/16/18 14:15 07/16/18 14:15 07/16/18 14:15 Intake and Output: 07/16/18 07/16/18 06:59 18:59 Intake Total 1490 60 Output Total 1100 Balance 390 60 - Medications Medications: Current Medications Calcium/Vitamin D (Oscal-D 250 Mg-125 Units Tab) 1 tab PO BID AGNES Last Admin: 07/16/18 09:36 Dose: 1 tab Furosemide (Lasix) 20 mg PO DAILY AGNES Guaifenesin (Robitussin) 100 mg PO Q4H PRN PRN Reason: Cough Last Admin: 07/15/18 00:35 Dose: 100 mg Hydrocortisone Sodium Succinate (Solu-Cortef) 50 mg IVP Q6 AGNES NOREPINEPHRINE BIT/0.9 % NACL (Levophed 4 Mg/ 250 Ml Ns Premixed) 4 mg in 250 mls @ 15 mls/hr IV .[id number] PRN; Protocol PRN Reason: TITRATE PER MD ORDER Last Titration: 07/16/18 07:00 Dose: 2 mcg/min, 7.5 mls/hr Dexmedetomidine HCl (Precedex 400mcg/100ml) 400 mcg in 100 mls @ 2.767 mls/hr IV .Q24H PRN; Protocol PRN Reason: Agitation Last Admin: 07/14/18 06:40 Dose: 0.2 mcg/kg/hr, 2.767 mls/hr Micafungin Sodium 100 mg/ (Sodium Chloride) 100 mls @ 100 mls/hr IV DAILY [facility]; Protocol Stop: 07/22/18 11:01 Last Admin: 07/16/18 09:39 Dose: 100 mls/hr Meropenem (Merrem Iv 1 Gm Premix) 1 gm in 50 mls @ 100 mls/hr IVPB Q8 AGNES; Protocol Insulin Human Regular (Humulin R High) 0 units SC ACHS AGNES; Protocol Last Admin: 07/16/18 14:18 Dose: Not Given Midodrine (Proamatine) 10 mg PO TID [facility] Last Admin: 07/16/18 09:36 Dose: 10 mg Morphine Sulfate (Morphine) 2 mg IVP Q6H PRN PRN Reason: Pain, severe (8-10) Last Admin: 07/16/18 12:06 Dose: 2 mg Ondansetron HCl (Zofran Inj) 4 mg IVP Q6H PRN PRN Reason: Nausea/Vomiting Last Admin: 07/12/18 06:20 Dose: 4 mg Pantoprazole Sodium (Protonix Ec Tab) 40 mg PO 0600 [facility] Last Admin: 07/16/18 06:04 Dose: 40 mg Potassium Phos/Sodium Phos (Neutra-Phos) 2 pkt PO TID [facility] Last Admin: 07/16/18 09:35 Dose: 2 pkt Pregabalin (Lyrica) 50 mg PO HS [facility] Last Admin: 07/15/18 21:07 Dose: 50 mg - Labs Labs: 07/16/18 05:30 07/16/18 05:30 PT 16.3 SECONDS (9.4-12.5) H 07/11/18 05:30 INR 1.41 07/11/18 05:30 APTT 24.2 Seconds (25.1-36.5) L 07/11/18 05:30
[2018-07-16] MEDS ORDERED: DiphenhydrAMINE 50 mg/ml Inj IVP ONE (23:51)
[2018-07-17] MEDS: Morphine 2 mg/ml ISec IVP PRN (03:35)
[2018-07-17] MEDS: Meropenem IV 1 gm in NS 1 GM/50 ML BAG IVPB SCH ×3 (03:37→18:22)
[2018-07-17 05:39] LABS: GRAN # 2.11 (1.4-6.5); GRAN % 82.1 % (50.0-68.0); HEMOGLOBIN 8.8 g/dL (12.0-16.0); LYMPH # 0.3 (1.2-3.4); LYMPH % 12.1 % (22.0-35.0); MEAN CELL VOLUME 93.7 fl (80.0-105.0); MEAN CORPUSCULAR HGB CONC 33.1 g/dl (31.0-37.0); MONO # 0.2 (0.1-0.6); MONO % 5.8 % (1.0-6.0); RBC 2.84 10^6/uL (3.5-6.1); RED CELL DISTRIBUTION WIDTH 13.8 % (11.5-14.5); WHITE BLOOD COUNT 2.6 10^3/uL (4.5-11.0)
[2018-07-17 05:41] LABS: PLATELET COUNT 29 10^3/uL (120.0-450.0)
[2018-07-17] MEDS: Pantoprazole 40 mg EC Tab PO SCH (06:29)
[2018-07-17 06:37] LABS: BLOOD UREA NITROGEN 18 mg/dL (7-21); CALCIUM 6.2 mg/dL (8.4-10.5); GFR NON-AFRICAN AMERICAN > 60
[2018-07-17 06:38] LABS: ALB/GLOB RATIO 0.8 (1.1-1.8); ALT/SGPT 43 U/L (7-56); AST/SGOT 38 U/L (14-36)
[2018-07-17] MEDS ORDERED: Potassium Chloride 20 mEq ER Tab PO STA (06:59)
[2018-07-17] MEDS ORDERED: Albumin Human 25% (12.5 gm/50 ml) IV ONE (07:04)
--- NOTE | 2018-07-17 07:18 | PCM.STROKE ---
<GuilhermeCliff - Last Filed: 07/17/18 14:10> Interval History - Treatment DVT Prophylaxis: Sequential compression device in place bilaterally - Education Written Stroke Education provided regarding: personal risk factors, stroke warning sign/symptoms, how to activate emergency medical services, need to follow up after discharge NIHSS Stroke Scale - Date/Time Evaluation Performed Date Performed: 07/12/18 Time Performed: 20:00 - How Severe is the Stroke Level of Consciousness: 0=Alert LOC to Questions: 0=Both comments correct LOC to commands: 0=Obeys both correctly Best Gaze: 0=Normal Visual: 0=No visual loss Facial: 0=Normal Motor Arm - Left: 0=No drift Motor Arm - Right: 3=No effort against gravity (falls immediately) Motor Leg - Left: 0=No drift Motor Leg - Right: 3=No effort against gravity (falls immediately) Limb Ataxia: 0=Absent Sensory: 0=Normal Best Language: 0=No aphasia Dysarthia: 0=Normal articulation Extinction & Inattention (Neglect): 0=Normal, no object Score: 6 Exam - Vital Sign Vital Signs: Temp Pulse Resp BP Pulse Ox 98.7 F 81 18 82/50 L 96 07/16/18 20:00 07/16/18 22:00 07/16/18 18:56 07/16/18 18:46 07/16/18 17:00 Constitutional: No distress, Normal appearing Right Pupil: Reactive Left Pupil: Reactive Cardiovascular: Regular rate & rhythm Mental Status: Normal: Orientation, Memory, Attention, Language Cranial Nerve: Normal: Visual Parrish, Extraocular movement intact, Facial Strength Neuro motor strength exam: Left Upper Extremity: 5, Right Upper Extremity: 2/1, Left Lower Extremity: 5, Right Lower Extremity: 2/1 Vascular Risk: Diabetes Mellitus - Data reviewed Laboratory results: 07/17/18 05:31 07/17/18 05:31 Triglycerides 119 mg/dL (35-160) 07/13/18 05:00 Cholesterol 66 mg/dL (130-200) L 07/13/18 05:00 LDL Cholesterol Direct < 30 mg/dL (0-129) 07/13/18 05:00 HDL Cholesterol 30 mg/dL (29-60) 07/13/18 05:00 Assessment and Plan - Assessment and Plan (Free Text) Plan: Assessment and Plan: Patient is a 72 year old female with PMHx of recurrent nephrolithiasis, recur rent UTIs, ureterovesicular reflux, DM2, Crohn's disease, h/o subdural hematoma brought in by EMS for evaluation and treatment of fever/chills/diarrhea x 2days. Neurology team was consulted for management of subarachnoid hemorrhage found on imaging. [facility] - 07/11/[address] without Contrast - Small amount of subarachnoid hemorrhage in the left frontal lobe. - 07/12/2018 CTA head and neck- Calcified intra cavernous segments of the internal carotid arteries - 07/14/2018 Brain MRI without contrast- small multifocal late acute/subacute cortical infarctions in the high frontal, parietal and to a lesser extent occipital cortex. Redemonstration of small left frontal subarachnoid hemorrhage - LSELY ordered and pending- scheduled for 07/17/[address] Hutchinson AMS - resolved, likely secondary to septic shock Patient seen, case discussed with, and plan approved by attending physician, Dr. Fuchs. <Reji Fuchs - Last Filed: 07/17/18 17:43> Interval History - Education Written Stroke Education provided regarding: personal risk factors, stroke warning sign/symptoms, how to activate emergency medical services, need to follow up after discharge Exam - Vital Sign Vital Signs: Temp Pulse Resp BP Pulse Ox 98.4 F 69 17 100/49 L 98 07/17/18 08:00 07/17/18 14:15 07/17/18 14:15 07/17/18 14:15 07/17/18 14:15 - Data reviewed Laboratory results: 07/17/18 05:31 07/17/18 05:31 Triglycerides 119 mg/dL (35-160) 07/13/18 05:00 Cholesterol 66 mg/dL (130-200) L 07/13/18 05:00 LDL Cholesterol Direct < 30 mg/dL (0-129) 07/13/18 05:00 HDL Cholesterol 30 mg/dL (29-60) 07/13/18 05:00 Attending/Attestation - Attestation I have personally seen and examined this patient.: Yes I have fully participated in the care of the patient.: Yes I have reviewed all pertinent clinical information, including history, physical exam and plan: Yes Notes (Text): 07/17/18 17:42 I agree with the assessment and plan: small multifocal late acute/subacute cortical infarctions in the high frontal, parietal and to a lesser extent occipital cortex. Redemonstration of small left frontal subarachnoid hemorrhage - LESLY ordered and pending- scheduled for 07/17/[address] Hutchinson
--- NOTE | 2018-07-17 08:51 | CP.PCM.PN ---
<Sivakumar Vázquez - Last Filed: 07/17/18 16:09> Subjective - Date & Time of Evaluation Date of Evaluation: 07/17/18 Time of Evaluation: 07:00 - Subjective Subjective: Sivakumar Vázquez, PGY1 Medicine Progress Note for Dr. Hoyos Patient was seen and examined at bedside this morning. Vital signs are stable. Patient says she feels better. She is AAOx3. Mental status has significantly improved since admission. Endorses lower extremity pain and weakness. Denies cp, sob, abdominal pain, n/v. No adverse overnight events. A full 12 point ROS was conducted and unremarkable except as stated above. Objective - Vital Signs/Intake and Output Vital Signs (last 24 hours): Temp Pulse Resp BP Pulse Ox 98.7 F 81 18 82/50 L 96 07/16/18 20:00 07/16/18 22:00 07/16/18 18:56 07/16/18 18:46 07/16/18 17:00 - Medications Medications: Current Medications Calcium/Vitamin D (Oscal-D 250 Mg-125 Units Tab) 1 tab PO BID AGNES Last Admin: 07/16/18 17:43 Dose: 1 tab Furosemide (Lasix) 20 mg PO DAILY [facility] Guaifenesin (Robitussin) 100 mg PO Q4H PRN PRN Reason: Cough Last Admin: 07/15/18 00:35 Dose: 100 mg Hydrocortisone Sodium Succinate (Solu-Cortef) 50 mg IVP Q6 [facility] Last Admin: 07/17/18 06:26 Dose: 50 mg Dexmedetomidine HCl (Precedex 400mcg/100ml) 400 mcg in 100 mls @ 2.767 mls/hr IV .Q24H PRN; Protocol PRN Reason: Agitation Last Admin: 07/14/18 06:40 Dose: 0.2 mcg/kg/hr, 2.767 mls/hr Micafungin Sodium 100 mg/ (Sodium Chloride) 100 mls @ 100 mls/hr IV DAILY [facility]ES; Protocol Stop: 07/22/18 11:01 Last Admin: 07/16/18 09:39 Dose: 100 mls/hr Meropenem (Merrem Iv 1 Gm Premix) 1 gm in 50 mls @ 100 mls/hr IVPB 0200,1000,1800 [facility]; Protocol Last Admin: 07/17/18 03:37 Dose: 100 mls/hr Insulin Human Regular (Humulin R High) 0 units SC ACHS [facility]; Protocol Last Admin: 07/16/18 21:57 Dose: 2 u Midodrine (Proamatine) 10 mg PO TID [facility] Last Admin: 07/16/18 17:44 Dose: 10 mg Morphine Sulfate (Morphine) 2 mg IVP Q4H PRN PRN Reason: Pain, moderate (4-7) Last Admin: 07/17/18 03:35 Dose: 2 mg Multivitamins/Minerals (Therapeutic-M Tab) 1 tab PO 0800 [facility] Ondansetron HCl (Zofran Inj) 4 mg IVP Q6H PRN PRN Reason: Nausea/Vomiting Last Admin: 07/12/18 06:20 Dose: 4 mg Oxycodone/Acetaminophen (Percocet 5/325 Mg Tab) 1 tab PO Q4H PRN PRN Reason: Pain, moderate (4-7) Stop: 07/20/18 03:48 Pantoprazole Sodium (Protonix Ec Tab) 40 mg PO 0600 [facility] Last Admin: 07/17/18 06:29 Dose: 40 mg Potassium Phos/Sodium Phos (Neutra-Phos) 1 pkt PO TID [facility] Pregabalin (Lyrica) 50 mg PO HS [facility] Last Admin: 07/16/18 21:57 Dose: 50 mg Psyllium Hydrophilic Mucilloid (Hydrocil Instant) 1 pkt PO BID [facility] - Labs Labs: 07/17/18 05:31 07/17/18 05:31 PT 16.3 SECONDS (9.4-12.5) H 07/11/18 05:30 INR 1.41 07/11/18 05:30 APTT 24.2 Seconds (25.1-36.5) L 07/11/18 05:30 - Constitutional Appears: No Acute Distress - Head Exam Head Exam: ATRAUMATIC, NORMAL INSPECTION, NORMOCEPHALIC - Eye Exam Eye Exam: EOMI, Normal appearance, PERRL Pupil Exam: NORMAL ACCOMODATION, PERRL - ENT Exam ENT Exam: Mucous Membranes Moist, Normal Exam - Respiratory Exam Respiratory Exam: Clear to Ausculation Bilateral, NORMAL BREATHING PATTERN. absent: Rales, Rhonchi, Wheezes - Cardiovascular Exam Cardiovascular Exam: REGULAR RHYTHM, +S1, +S2. absent: Murmur - GI/Abdominal Exam GI & Abdominal Exam: Soft, Normal Bowel Sounds. absent: Tenderness, Organomegaly - Extremities Exam Extremities Exam: Normal Capillary Refill, Tenderness. absent: Joint Swelling - Skin Skin Exam: Dry, Intact, Normal Color, Warm Assessment and Plan - Assessment and Plan (Free Text) Assessment: Patient is a 72 y/o F with PMHx of recurrent nephrolithiasis, recurrent UTIs, ureterovesicular reflux, DM2, Crohn's disease, h/o subdural hematoma brought in by EMS to [facility] with complaints of fever/chills/diarrhea x 2days. Patient was admitted to ICU for AMS due to E. Coli Bacteremia in the setting of septic shock 2/2 Uropesis with recurrent nephrolithiasis. Patient was also found to have Acute cortical infarcts with stable subarachnoid hemorrhage. She also presented with NSTEMI and thrombocytopenia. Plan: AMS due to E. Coli Bacteremia in the setting of Septic Shock 2/2 Urosepsis with Hx of recurrent nephrolithiasis - Improving mental status; AAOx3 today - c/w midodrine; d/c stress dose steroids, prednisone 20mg (taper as needed) - Patient has anasarca, not on fluids - repeat urine cx +yeast; c/w Mycamine as per ID - c/w merrem - Leukocytosis downtrending to 2.6 today - Blood cx grew E. Coli - Urine cx grew Proteus mirabilis and enterococcus faecalis - C. Diff and MRSA negative - Echo: EF 30%. Global hypoknesis of the left ventricle. No thrombus noted. - Urology recs appreciated: patient is not a candidate for general anesthesia at this time due to septic shock. - Abdomen/Pelvis CT (07/12): large stone in the R-renal pelvis measuring 24x32 mm. There are 3 separate 5 mm stones in the right distal ureter adjacent to the ureteral stent. There is a left ureteral stent. There is a 10 mm stone within within proximal pigtail. There is a 14 mm nonobstructing stone in the lower pole of the L-kidney. Acute/subacute cortical infarctions in the frontal, parietal, and occipital cortex with stable subarachnoid Hemorrhage - LESLY ordered was placed by Dr. Hutchinson - Neuro recommends appreciated: LESLY and PT/ST/OT - MRI (07/14): small multifocal late acute/subacute cortical infarctions in the high frontal parietal and to a lesser extent occipital cortex. - Head/Neck CTA (07/12): unremarkable. - Head CT (07/11): 1.5 cm subarachnoid hemorrhage in the left frontal lobe - Patient has hx of subdural hematoma Thrombocytopenia - Heme/onc consulted. Pending recommendations. - Platelets are 29 today. Total of x3 platelet transfusions. - Patient has a hx of thrombocytopenia NSTEMI - elevated troponins likely secondary to stroke - Cardio consulted. Recs appreciated. Patient is not a suitable candidate for anticoagulation, betablockers, or ACEI at this time. - Elevated troponin at 1.12 - likely due to new finding of stroke - EKG changes: sinus tachy with T wave depressions noted Electrolyte Abnormalities due to Sepsis (Hypocalcemia, Hypomagnesemia, Hypophosphatemia) - Corrected calcium is 7.8; replete - Patient started on albumin - Mg and Phos is normal - Nephro recs appreciated. DVT ppx: SCD GI ppx: PTX Dispo: Patient is transferred to the floor. Pending recommendations from Hem atology. Possible LESLY as per cardiology. Case was discussed and reviewed with Attending Physician, Dr. Hoyos <Ila Hoyos - Last Filed: 07/17/18 16:25> Objective - Vital Signs/Intake and Output Vital Signs (last 24 hours): Temp Pulse Resp BP Pulse Ox 98.7 F 81 18 106/55 L 96 07/16/18 20:00 07/16/18 22:00 07/16/18 18:56 07/17/18 09:47 07/16/18 17:00 - Medications Medications: Current Medications Calcium/Vitamin D (Oscal-D 250 Mg-125 Units Tab) 1 tab PO BID [facility] Last Admin: 07/17/18 09:49 Dose: 1 tab Furosemide (Lasix) 20 mg PO DAILY [facility] Last Admin: 07/17/18 09:47 Dose: 20 mg Guaifenesin (Robitussin) 100 mg PO Q4H PRN PRN Reason: Cough Last Admin: 07/15/18 00:35 Dose: 100 mg Micafungin Sodium 100 mg/ (Sodium Chloride) 100 mls @ 100 mls/hr IV DAILY [facility]; Protocol Stop: 07/22/18 11:01 Last Admin: 07/17/18 10:25 Dose: 100 mls/hr Meropenem (Merrem Iv 1 Gm Premix) 1 gm in 50 mls @ 100 mls/hr IVPB 0200,1000,1800 [facility]; Protocol Last Admin: 07/17/18 09:48 Dose: 100 mls/hr Insulin Human Regular (Humulin R High) 0 units SC ACHS [facility]; Protocol Last Admin: 07/17/18 12:05 Dose: 7 u Midodrine (Proamatine) 10 mg PO TID [facility] Last Admin: 07/17/18 13:46 Dose: 10 mg Morphine Sulfate (Morphine) 2 mg IVP Q4H PRN PRN Reason: Pain, moderate (4-7) Last Admin: 07/17/18 03:35 Dose: 2 mg Multivitamins/Minerals (Therapeutic-M Tab) 1 tab PO 0800 [facility] Last Admin: 07/17/18 09:47 Dose: 1 tab Ondansetron HCl (Zofran Inj) 4 mg IVP Q6H PRN PRN Reason: Nausea/Vomiting Last Admin: 07/12/18 06:20 Dose: 4 mg Oxycodone/Acetaminophen (Percocet 5/325 Mg Tab) 1 tab PO Q4H PRN PRN Reason: Pain, moderate (4-7) Stop: 07/20/18 03:48 Pantoprazole Sodium (Protonix Ec Tab) 40 mg PO 0600 [facility] Last Admin: 07/17/18 06:29 Dose: 40 mg Potassium Phos/Sodium Phos (Neutra-Phos) 1 pkt PO TID [facility] Last Admin: 07/17/18 13:46 Dose: 1 pkt Prednisone (Prednisone Tab) 20 mg PO DAILY [facility] Pregabalin (Lyrica) 50 mg PO HS [facility] Last Admin: 07/16/18 21:57 Dose: 50 mg Psyllium Hydrophilic Mucilloid (Hydrocil Instant) 1 pkt PO BID [facility] Last Admin: 07/17/18 09:43 Dose: 1 pkt - Labs Labs: 07/17/18 05:31 07/17/18 05:31 PT 16.3 SECONDS (9.4-12.5) H 07/11/18 05:30 INR 1.41 07/11/18 05:30 APTT 24.2 Seconds (25.1-36.5) L 07/11/18 05:30 Attending/Attestation - Attestation I have personally seen and examined this patient.: Yes I have fully participated in the care of the patient.: Yes I have reviewed all pertinent clinical information, including history, physical exam and plan: Yes Notes (Text): 07/17/18 16:23 72 year old female with past medical history of UTI, nephrolithiasis, diabetes, and history of subdural hematoma who presented with fever and chills. She was found to have septic shock secondary to gram negative bacteremia and UTI and ad mitted to the ICU. BP did not respond initially to fluid resuscitation and she was started on pressors and stressed dose steroids. Continue with iv antibiotics as per ID. Blood culture is growing E Coli x 2 and UCx is growing Proteus Mirabilis and Enterobacter Faecalis. Repeat UCx grew yeast species and patient was started on micafungin. CT abd/pelvis showed large stone (24x32 mm) in the right renal pelvis and 3 separate 5 mm stones in the right distal ureter adjacent to the ureteral stent; left ureteral stent with 10 mm stone within proximal pigtail; no hydronephrosis. Renal ultrasound showed bilateral proximal ureteral stones, larger on right; and small bilateral non-obstructing stones. Urology is following; consider urological intervention once patient is more stable. CT head showed small amount of subarachnoid hemorrhage in the left frontal lobe. Neurosurgery was notified; no acute intervention. MRI brain showed small multifocal late acute / subacute cortical infarctions in the high frontal parietal and to a lesser extent occipital cortex. CTA head/neck were unremarkab le. Neurology is following. Will discuss with cardiology for possible LESLY as per neurology recommendations. PT evaluation was appreciated who recommended acute rehab. Patient also has thrombocytopenia. Will continue to monitor closely and transfuse as needed. Hematology was notified on consultation but still pending today. Also noted to have elevated troponin, possible NSTEMI. Cardiology is following. Patient is not candidate for aspirin or anticoagulation secondary to SAH and thrombocytopenia. Echocardiogram showed systolic funditon severely impaired (EF 30%); global hypokinesis of the left ventricle. Started on low dose lasix as bp tolerates by nephrology. Will replete and repeat lytes. Overall prognosis is guarded. Ila Hoyos MD Hospitalist.
[2018-07-17] MEDS: Insulin Reg-HIGH-Coverage SC SCH ×5 (09:42→21:45)
[2018-07-17] MEDS: Psyllium Packet PO SCH ×2 (09:43→18:22)
[2018-07-17] MEDS: Multivitamin With Minerals Tab PO SCH (09:47)
[2018-07-17] MEDS: Potassium & Sodium Phosphate PO SCH ×3 (09:48→18:22)
[2018-07-17] MEDS: Calcium-Vit D 250 mg-125 Units Tab UD PO SCH ×2 (09:49→18:22)
[2018-07-17] MEDS: Micafungin 100 MG in Sodium Chloride 0.9% 100 ML IV SCH (10:25)
--- NOTE | 2018-07-17 10:31 | CP.CCUPN ---
<Beau Castellanos - Last Filed: 07/17/18 15:40> CCU Subjective - Physician Review Subjective (Free Text): CRITICAL CARE PROGRESS NOTE FOR DR. ANTHONY Castellanos PGY-1 Pt seen and examined at bedside this am. No acute nursing events overnight. She is axo x 3, no acute complaints. She is not on any vasopressors She is tolerating her diet. 12 point ROS is negative CCU Objective - Vital Signs / Intake & Output Vital Signs (Last 4 hours): Vital Signs BP 07/17/18 09:47 106/55 L Intake and Output (Last 8hrs): Intake & Output 07/16/18 07/17/18 07/17/18 22:59 06:59 14:59 Intake Total 1600 Output Total 1000 Balance 600 Intake: IV 300 Right Internal Jugular 300 Oral 1000 Blood Product 300 Output: Urine 1000 Urethral (Zendejas) 1000 Other: # Bowel Movements 4 - Physical Exam Head: Positive for: Atraumatic, Normocephalic Pupils: Positive for: PERRL Extroacular Muscles: Positive for: EOMI Conjunctiva: Positive for: Normal Mouth: Positive for: Moist Mucous Membranes Neck: Positive for: Normal Range of Motion Respiratory/Chest: Positive for: Clear to Auscultation, Good Air Exchange. Negative for: Respiratory Distress, Accessory Muscle Use Cardiovascular: Positive for: Regular Rate and Rhythm, Normal S1, S2. Negative for: Murmurs Abdomen: Negative for: Tenderness, Distention, Peritoneal Signs Back: Positive for: Normal Inspection Upper Extremity: Positive for: Normal Inspection. Negative for: Cyanosis, Edema Lower Extremity: Positive for: Swelling (Swelling to ankles bilaterally). Negative for: Edema Neurological: Positive for: GCS=15, CN II-XII Intact, Speech Normal Skin: Positive for: Dry, Normal Color, Hot (to touch). Negative for: Rashes Psychiatric: Positive for: Alert, Oriented x 3, Normal Insight, Normal Concentration - Medications Active Medications: Active Medications Generic Name Dose Route Start Last Admin Trade Name Freq PRN Reason Stop Dose Admin Calcium/Vitamin D 1 tab 07/14/18 10:00 07/17/18 09:49 Oscal-D 250 Mg-125 Units Tab PO 1 tab BID AGNES Administration Furosemide 20 mg 07/17/18 10:00 07/17/18 09:47 Lasix PO 20 mg DAILY AGNES Administration Guaifenesin 100 mg 07/14/18 23:30 07/15/18 00:35 Robitussin PO 100 mg Q4H PRN Administration Cough Hydrocortisone Sodium Succinate 50 mg 07/16/18 12:00 07/17/18 06:26 Solu-Cortef IVP 50 mg Q6 AGNES Administration Dexmedetomidine HCl 400 mcg in 100 mls @ 2.767 mls/hr 07/12/18 18:19 07/14/18 06:40 Precedex 400mcg/100ml IV 0.2 mcg/kg/hr .Q24H PRN 2.767 mls/hr Agitation Administration Protocol 0.2 MCG/KG/HR Micafungin Sodium 100 mg/ 100 mls @ 100 mls/hr 07/15/18 11:00 07/17/18 10:25 Sodium Chloride IV 07/22/18 11:01 100 mls/hr DAILY AGNES Administration Protocol Meropenem 1 gm in 50 mls @ 100 mls/hr 07/16/18 10:00 07/17/18 09:48 Merrem Iv 1 Gm Premix IVPB 100 mls/hr 0200,1000,1800 AGNES Administration Protocol Calcium Gluconate 2,000 mg/ 120 mls @ 110 mls/hr 07/17/18 09:56 Sodium Chloride IVPB 07/17/18 11:01 ONCE ONE Insulin Human Regular 0 units 07/13/18 11:30 07/17/18 09:42 Humulin R High SC Not Given ACHS AGNES Protocol Midodrine 10 mg 07/16/18 08:28 07/17/18 09:49 Proamatine PO 10 mg TID AGNES Administration Morphine Sulfate 2 mg 07/16/18 20:17 07/17/18 03:35 Morphine IVP 2 mg Q4H PRN Administration Pain, moderate (4-7) Multivitamins/Minerals 1 tab 07/17/18 08:00 07/17/18 09:47 Therapeutic-M Tab PO 1 tab 0800 AGNES Administration Ondansetron HCl 4 mg 07/12/18 06:07 07/12/18 06:20 Zofran Inj IVP 4 mg Q6H PRN Administration Nausea/Vomiting Oxycodone/Acetaminophen 1 tab 07/17/18 03:47 Percocet 5/325 Mg Tab PO 07/20/18 03:48 Q4H PRN Pain, moderate (4-7) Pantoprazole Sodium 40 mg 07/16/18 06:00 07/17/18 06:29 Protonix Ec Tab PO 40 mg 0600 AGNES Administration Potassium Phos/Sodium Phos 1 pkt 07/17/18 07:19 07/17/18 09:48 Neutra-Phos PO 1 pkt TID AGNES Administration Pregabalin 50 mg 07/15/18 20:54 07/16/18 21:57 Lyrica PO 50 mg HS AGNES Administration Psyllium Hydrophilic Mucilloid 1 pkt 07/17/18 10:00 07/17/18 09:43 Hydrocil Instant PO 1 pkt BID AGNES Administration - Patient Studies Lab Studies: Microbiology Studies 07/13/18 09:20 Blood Culture - Preliminary Blood-Venous NO GROWTH AFTER 4 DAYS 07/13/18 09:10 Blood Culture - Preliminary Blood-Venous NO GROWTH AFTER 4 DAYS Lab Studies 07/17/18 07/17/18 07/17/18 Range/Units 07:47 05:31 05:31 WBC 2.6 L D (4.5-11.0) 10^3/uL RBC 2.84 L (3.5-6.1) 10^6/uL Hgb 8.8 L (12.0-16.0) g/dL Hct 26.6 L (36.0-48.0) % MCV 93.7 (80.0-105.0) fl MCH 31.0 (25.0-35.0) pg MCHC 33.1 (31.0-37.0) g/dl RDW 13.8 (11.5-14.5) % Plt Count 29 L* (120.0-450.0) 10^3/uL Gran % 82.1 H (50.0-68.0) % Lymph % (Auto) 12.1 L (22.0-35.0) % [place] % (Auto) 5.8 (1.0-6.0) % Eos % (Auto) 0.0 L (1.5-5.0) % Baso % (Auto) 0.0 (0.0-3.0) % Gran # 2.11 (1.4-6.5) Lymph # (Auto) 0.3 L (1.2-3.4) [place] # (Auto) 0.2 (0.1-0.6) Eos # (Auto) 0.0 (0.0-0.7) Baso # (Auto) 0.00 (0.0-2.0) K/mm3 pO2 (30-55) mm/Hg VBG pH (7.32-7.43) VBG pCO2 (40-60) VBG HCO3 (21-28) mmol/l VBG Total CO2 (22-28) mmol.L VBG O2 Sat (Calc) (40-65) % VBG Base Excess (0.0-2.0) mmol/L VBG Potassium (3.6-5.2) mmol/L Sodium 138 (132-148) mmol/L Chloride 112 H (98-107) mmol/L Glucose (65-105) mg/dl Lactate (0.7-2.1) mmol/L FiO2 % Potassium 3.5 L (3.6-5.0) mmol/L Carbon Dioxide 21 (21-33) mmol/L Anion Gap 8 L (10-20) BUN 18 (7-21) mg/dL Creatinine 0.8 (0.7-1.2) mg/dl Est GFR ( Amer) > 60 Est GFR (Non-Af Amer) > 60 POC Glucose (mg/dL) 242 H (65-110) mg/dL Random Glucose 232 H (70-110) mg/dL Calcium 6.2 L* (8.4-10.5) mg/dL Phosphorus 3.1 (2.5-4.5) mg/dL Magnesium 1.7 (1.7-2.2) mg/dL Total Bilirubin 1.2 (0.2-1.3) mg/dL AST 38 H (14-36) U/L ALT 43 (7-56) U/L Alkaline Phosphatase 103 (38-126) U/L Total Protein 4.5 L (5.8-8.3) g/dL Albumin 2.0 L (3.0-4.8) g/dL Globulin 2.5 gm/dL Albumin/Globulin Ratio 0.8 L (1.1-1.8) Venous Blood Potassium (3.6-5.2) mmol/L Blood Type Antibody Screen BBK History Checked 07/16/18 07/16/1807/16/18 Range/Units 21:46 16:03 12:30 WBC (4.5-11.0) 10^3/uL RBC (3.5-6.1) 10^6/uL Hgb (12.0-16.0) g/dL Hct (36.0-48.0) % MCV (80.0-105.0) fl MCH (25.0-35.0) pg MCHC (31.0-37.0) g/dl RDW (11.5-14.5) % Plt Count (120.0-450.0) 10^3/uL Gran % (50.0-68.0) % Lymph % (Auto) (22.0-35.0) % [place] % (Auto) (1.0-6.0) % Eos % (Auto) (1.5-5.0) % Baso % (Auto) (0.0-3.0) % Gran # (1.4-6.5) Lymph # (Auto) (1.2-3.4) [place] # (Auto) (0.1-0.6) Eos # (Auto) (0.0-0.7) Baso # (Auto) (0.0-2.0) K/mm3 pO2 46 (30-55) mm/Hg VBG pH 7.36 (7.32-7.43) VBG pCO2 33.0 L (40-60) VBG HCO3 18.6 L (21-28) mmol/l VBG Total CO2 19.6 L (22-28) mmol.L VBG O2 Sat (Calc) 85.0 H (40-65) % VBG Base Excess -5.9 L (0.0-2.0) mmol/L VBG Potassium 4.5 (3.6-5.2) mmol/L Sodium 138.0 (132-148) mmol/L Chloride 110.0 H (98-107) mmol/L Glucose 277 H (65-105) mg/dl Lactate 2.1 (0.7-2.1) mmol/L FiO2 21.0 % Potassium (3.6-5.0) mmol/L Carbon Dioxide (21-33) mmol/L Anion Gap (10-20) BUN (7-21) mg/dL Creatinine (0.7-1.2) mg/dl Est GFR ( Amer) Est GFR (Non-Af Amer) POC Glucose (mg/dL) 307 H 354 H (65-110) mg/dL Random Glucose (70-110) mg/dL Calcium (8.4-10.5) mg/dL Phosphorus (2.5-4.5) mg/dL Magnesium (1.7-2.2) mg/dL Total Bilirubin (0.2-1.3) mg/dL AST (14-36) U/L ALT (7-56) U/L Alkaline Phosphatase (38-126) U/L Total Protein (5.8-8.3) g/dL Albumin (3.0-4.8) g/dL Globulin gm/dL Albumin/Globulin Ratio (1.1-1.8) Venous Blood Potassium 4.5 (3.6-5.2) mmol/L Blood Type Antibody Screen BBK History Checked 07/16/18 07/16/18 07/16/18 Range/Units 11:09 10:13 07:17 WBC (4.5-11.0) 10^3/uL RBC (3.5-6.1) 10^6/uL Hgb (12.0-16.0) g/dL Hct (36.0-48.0) % MCV (80.0-105.0) fl MCH (25.0-35.0) pg MCHC (31.0-37.0) g/dl RDW (11.5-14.5) % Plt Count (120.0-450.0) 10^3/uL Gran % (50.0-68.0) % Lymph % (Auto) (22.0-35.0) % [place] % (Auto) (1.0-6.0) % Eos % (Auto) (1.5-5.0) % Baso % (Auto) (0.0-3.0) % Gran # (1.4-6.5) Lymph # (Auto) (1.2-3.4) [place] # (Auto) (0.1-0.6) Eos # (Auto) (0.0-0.7) Baso # (Auto) (0.0-2.0) K/mm3 pO2 (30-55) mm/Hg VBG pH (7.32-7.43) VBG pCO2 (40-60) VBG HCO3 (21-28) mmol/l VBG Total CO2 (22-28) mmol.L VBG O2 Sat (Calc) (40-65) % VBG Base Excess (0.0-2.0) mmol/L VBG Potassium (3.6-5.2) mmol/L Sodium (132-148) mmol/L Chloride (98-107) mmol/L Glucose (65-105) mg/dl Lactate (0.7-2.1) mmol/L FiO2 % Potassium (3.6-5.0) mmol/L Carbon Dioxide (21-33) mmol/L Anion Gap (10-20) BUN (7-21) mg/dL Creatinine (0.7-1.2) mg/dl Est GFR ( Amer) Est GFR (Non-Af Amer) POC Glucose (mg/dL) 190 H 146 H (65-110) mg/dL Random Glucose (70-110) mg/dL Calcium (8.4-10.5) mg/dL Phosphorus (2.5-4.5) mg/dL Magnesium (1.7-2.2) mg/dL Total Bilirubin (0.2-1.3) mg/dL AST (14-36) U/L ALT (7-56) U/L Alkaline Phosphatase (38-126) U/L Total Protein (5.8-8.3) g/dL Albumin (3.0-4.8) g/dL Globulin gm/dL Albumin/Globulin Ratio (1.1-1.8) Venous Blood Potassium (3.6-5.2) mmol/L Blood Type A NEGATIVE Antibody Screen Negative BBK History Checked Patient has bt 07/15/18 07/15/18 07/15/18 Range/Units 21:10 15:15 11:36 WBC (4.5-11.0) 10^3/uL RBC (3.5-6.1) 10^6/uL Hgb (12.0-16.0) g/dL Hct (36.0-48.0) % MCV (80.0-105.0) fl MCH (25.0-35.0) pg MCHC (31.0-37.0) g/dl RDW (11.5-14.5) % Plt Count (120.0-450.0) 10^3/uL Gran % (50.0-68.0) % Lymph % (Auto) (22.0-35.0) % [place] % (Auto) (1.0-6.0) % Eos % (Auto) (1.5-5.0) % Baso % (Auto) (0.0-3.0) % Gran # (1.4-6.5) Lymph # (Auto) (1.2-3.4) [place] # (Auto) (0.1-0.6) Eos # (Auto) (0.0-0.7) Baso # (Auto) (0.0-2.0) K/mm3 pO2 (30-55) mm/Hg VBG pH (7.32-7.43) VBG pCO2 (40-60) VBG HCO3 (21-28) mmol/l VBG Total CO2 (22-28) mmol.L VBG O2 Sat (Calc) (40-65) % VBG Base Excess (0.0-2.0) mmol/L VBG Potassium (3.6-5.2) mmol/L Sodium (132-148) mmol/L Chloride (98-107) mmol/L Glucose (65-105) mg/dl Lactate (0.7-2.1) mmol/L FiO2 % Potassium (3.6-5.0) mmol/L Carbon Dioxide (21-33) mmol/L Anion Gap (10-20) BUN (7-21) mg/dL Creatinine (0.7-1.2) mg/dl Est GFR ( Amer) Est GFR (Non-Af Amer) POC Glucose (mg/dL) 220 H 241 H 160 H (65-110) mg/dL Random Glucose (70-110) mg/dL Calcium (8.4-10.5) mg/dL Phosphorus (2.5-4.5) mg/dL Magnesium (1.7-2.2) mg/dL Total Bilirubin (0.2-1.3) mg/dL AST (14-36) U/L ALT (7-56) U/L Alkaline Phosphatase (38-126) U/L Total Protein (5.8-8.3) g/dL Albumin (3.0-4.8) g/dL Globulin gm/dL Albumin/Globulin Ratio (1.1-1.8) Venous Blood Potassium (3.6-5.2) mmol/L Blood Type Antibody Screen BBK History Checked 07/15/18 Range/Units 07:35 WBC (4.5-11.0) 10^3/uL RBC (3.5-6.1) 10^6/uL Hgb (12.0-16.0) g/dL Hct (36.0-48.0) % MCV (80.0-105.0) fl MCH (25.0-35.0) pg MCHC (31.0-37.0) g/dl RDW (11.5-14.5) % Plt Count (120.0-450.0) 10^3/uL Gran % (50.0-68.0) % Lymph % (Auto) (22.0-35.0) % [place] % (Auto) (1.0-6.0) % Eos % (Auto) (1.5-5.0) % Baso % (Auto) (0.0-3.0) % Gran # (1.4-6.5) Lymph # (Auto) (1.2-3.4) [place] # (Auto) (0.1-0.6) Eos # (Auto) (0.0-0.7) Baso # (Auto) (0.0-2.0) K/mm3 pO2 (30-55) mm/Hg VBG pH (7.32-7.43) VBG pCO2 (40-60) VBG HCO3 (21-28) mmol/l VBG Total CO2 (22-28) mmol.L VBG O2 Sat (Calc) (40-65) % VBG Base Excess (0.0-2.0) mmol/L VBG Potassium (3.6-5.2) mmol/L Sodium (132-148) mmol/L Chloride (98-107) mmol/L Glucose (65-105) mg/dl Lactate (0.7-2.1) mmol/L FiO2 % Potassium (3.6-5.0) mmol/L Carbon Dioxide (21-33) mmol/L Anion Gap (10-20) BUN (7-21) mg/dL Creatinine (0.7-1.2) mg/dl Est GFR ( Amer) Est GFR (Non-Af Amer) POC Glucose (mg/dL) 113 H (65-110) mg/dL Random Glucose (70-110) mg/dL Calcium (8.4-10.5) mg/dL Phosphorus (2.5-4.5) mg/dL Magnesium (1.7-2.2) mg/dL Total Bilirubin (0.2-1.3) mg/dL AST (14-36) U/L ALT (7-56) U/L Alkaline Phosphatase (38-126) U/L Total Protein (5.8-8.3) g/dL Albumin (3.0-4.8) g/dL Globulin gm/dL Albumin/Globulin Ratio (1.1-1.8) Venous Blood Potassium (3.6-5.2) mmol/L Blood Type Antibody Screen BBK History Checked Laboratory Results - last 24 hr 07/15/18 07/15/18 07/15/18 07:35 11:36 15:15 WBC RBC Hgb Hct MCV MCH MCHC RDW Plt Count Gran % Lymph % (Auto) [place] % (Auto) Eos % (Auto) Baso % (Auto) Gran # Lymph # (Auto) [place] # (Auto) Eos # (Auto) Baso # (Auto) pO2 VBG pH VBG pCO2 VBG HCO3 VBG Total CO2 VBG O2 Sat (Calc) VBG Base Excess VBG Potassium Sodium Chloride Glucose Lactate FiO2 Potassium Carbon Dioxide Anion Gap BUN Creatinine Est GFR ( Amer) Est GFR (Non-Af Amer) POC Glucose (mg/dL) 113 H 160 H 241 H Random Glucose Calcium Phosphorus Magnesium Total Bilirubin AST ALT Alkaline Phosphatase Total Protein Albumin Globulin Albumin/Globulin Ratio Venous Blood Potassium Blood Type Antibody Screen BBK History Checked 07/15/18 07/16/18 07/16/18 21:10 07:17 10:13 WBC RBC Hgb Hct MCV MCH MCHC RDW Plt Count Gran % Lymph % (Auto) [place] % (Auto) Eos % (Auto) Baso % (Auto) Gran # Lymph # (Auto) [place] # (Auto) Eos # (Auto) Baso # (Auto) pO2 VBG pH VBG pCO2 VBG HCO3 VBG Total CO2 VBG O2 Sat (Calc) VBG Base Excess VBG Potassium Sodium Chloride Glucose Lactate FiO2 Potassium Carbon Dioxide Anion Gap BUN Creatinine Est GFR ( Amer) Est GFR (Non-Af Amer) POC Glucose (mg/dL) 220 H 146 H Random Glucose Calcium Phosphorus Magnesium Total Bilirubin AST ALT Alkaline Phosphatase Total Protein Albumin Globulin Albumin/Globulin Ratio Venous Blood Potassium Blood Type A NEGATIVE Antibody Screen Negative BBK History Checked Patient has bt 07/16/18 07/16/18 07/16/18 11:09 12:30 16:03 WBC RBC Hgb Hct MCV MCH MCHC RDW Plt Count Gran % Lymph % (Auto) [place] % (Auto) Eos % (Auto) Baso % (Auto) Gran # Lymph # (Auto) [place] # (Auto) Eos # (Auto) Baso # (Auto) pO2 46 VBG pH 7.36 VBG pCO2 33.0 L VBG HCO3 18.6 L VBG Total CO2 19.6 L VBG O2 Sat (Calc) 85.0 H VBG Base Excess -5.9 L VBG Potassium 4.5 Sodium 138.0 Chloride 110.0 H Glucose 277 H Lactate 2.1 FiO2 21.0 Potassium Carbon Dioxide Anion Gap BUN Creatinine Est GFR ( Amer) Est GFR (Non-Af Amer) POC Glucose (mg/dL) 190 H 354 H Random Glucose Calcium Phosphorus Magnesium Total Bilirubin AST ALT Alkaline Phosphatase Total Protein Albumin Globulin Albumin/Globulin Ratio Venous Blood Potassium 4.5 Blood Type Antibody Screen BBK History Checked 07/16/18 07/17/18 07/17/18 21:46 05:31 05:31 WBC 2.6 L D RBC 2.84 L Hgb 8.8 L Hct 26.6 L MCV 93.7 MCH 31.0 MCHC 33.1 RDW 13.8 Plt Count 29 L* Gran % 82.1 H Lymph % (Auto) 12.1 L [place] % (Auto) 5.8 Eos % (Auto) 0.0 L Baso % (Auto) 0.0 Gran # 2.11 Lymph # (Auto) 0.3 L [place] # (Auto) 0.2 Eos # (Auto) 0.0 Baso # (Auto) 0.00 pO2 VBG pH VBG pCO2 VBG HCO3 VBG Total CO2 VBG O2 Sat (Calc) VBG Base Excess VBG Potassium Sodium 138 Chloride 112 H Glucose Lactate FiO2 Potassium 3.5 L Carbon Dioxide 21 Anion Gap 8 L BUN 18 Creatinine 0.8 Est GFR ( Amer) > 60 Est GFR (Non-Af Amer) > 60 POC Glucose (mg/dL) 307 H Random Glucose 232 H Calcium 6.2 L* Phosphorus 3.1 Magnesium 1.7 Total Bilirubin 1.2 AST 38 H ALT 43 Alkaline Phosphatase 103 Total Protein 4.5 L Albumin 2.0 L Globulin 2.5 Albumin/Globulin Ratio 0.8 L Venous Blood Potassium Blood Type Antibody Screen BBK History Checked 07/17/18 07:47 WBC RBC Hgb Hct MCV MCH MCHC RDW Plt Count Gran % Lymph % (Auto) [place] % (Auto) Eos % (Auto) Baso % (Auto) Gran # Lymph # (Auto) [place] # (Auto) Eos # (Auto) Baso # (Auto) pO2 VBG pH VBG pCO2 VBG HCO3 VBG Total CO2 VBG O2 Sat (Calc) VBG Base Excess VBG Potassium Sodium Chloride Glucose Lactate FiO2 Potassium Carbon Dioxide Anion Gap BUN Creatinine Est GFR ( Amer) Est GFR (Non-Af Amer) POC Glucose (mg/dL) 242 H Random Glucose Calcium Phosphorus Magnesium Total Bilirubin AST ALT Alkaline Phosphatase Total Protein Albumin Globulin Albumin/Globulin Ratio Venous Blood Potassium Blood Type Antibody Screen BBK History Checked Fingerstick Blood Sugar Results: 327 Critical Care Progress Note - Nutrition Nutrition: Nutrition Category Date Time Status Diabetic [Consistent Carbohydrate] [DIET] Diets 07/11/18 Dinner Ordered Assessment/Plan - Assessment and Plan (Free Text) Assessment: 72 y/o F with PMHx of recurrent nephrolithiasis, recurrent UTI/urosepsis with indwelling stents, L vesicoureteral reflux, DM2, Crohn's disease, h/o subdural hematoma, pancytopenia admitted to ICU for septic shock, likely secondary to ur osepsis in the setting of recurrent nephrolithiasis and ureterovesicular reflux. She was also found to have stable subarachniod bleed in the setting of thrombocytopenia which may/may not have been caused by sepsis Plan: Neuro: AxO x 3 GCS15 Mental status improved Subarachnoid hemorrhage seen on previous CT scan Neurology following Tolerating breakfast Reorient frequently Fall precautions Cardiovascular: Discontinue norepinephrine midodrine increased to 10mg po tid Stress dose steroids start as she has been on long-term steroids prior to ICU admission. Discontinue hydrocortisone, taper prednisone currently bp@ 90s/40s. At baseline blood pressure R IJ triple lumen catheter in place Remove IJ TLC before transfer to floor Echo reveals reduced LVEF: 39% LESLY per neurology recs Maintain MAP >60 Respiratory: Saturating well on 2L RA NC maintain SpO2> 90% Able to maintain airway Lungs CTA b/l. No active pulmonary disease on Chest xray treat underlying sepsis Trend VBG w/ lactate GI: soft diet protonix IVP for GI PPx C. Diff antigen/toxin negative /Renal: -Recurrent nephrolithiasis/UTI Plans discussed with IR-Dr. Valera, Urology-Dr. Win, no plans for percutaneous drainage at the moment Zendejas catheter urine culture: proteus mirabilis, e. faecium meropenem per ID recs Urology/nephro recs appreciated lactate downtrending Maintain euvolemia replete electrolytes prn Monitor I/Os. Maintain urine output >0.5 ml/kg/hr ID: -Septic shock 2/2 urosepsis Hx of recurrent UTI/nephrolithiasis blood culture: e. coli urine culture: proteus mirabilis, e. faecium Afebrile. leukocytosis resolved. Lactate improved R IJ to be removed upon transfer Being treated with broad spectrum vancomycin, meropenem, f/u ID recs Endocrine: Maintain euglycemia 110-180 per NICE-SUGAR trial Cont RISS Heme: H/H stable transfuse 1u platelets f/u heme recs avoid anticoagulants in the setting of thrombocytopenia and subarachnoid bleed DVT/GI Ppx: SCD/Protonix Dispo: Pt reports no acute complaints, tolerating diet. VSS. Neurologically stable. She should be tapered off the stress dose hydrocortisone. Prednisone 20mg po bid ordered. R IJ remained in place as she has poor peripheral IV access, will attempt PICC placement. She no longer requires ICU care. She is stable for discharge to telemetry floor. Case seen, examined and discussed with attending physician,Dr Chaparro <Arleth Chaparro - Last Filed: 07/17/18 17:58> CCU Objective - Vital Signs / Intake & Output Vital Signs (Last 4 hours): Vital Signs Temp Pulse Resp BP Pulse Ox 07/17/18 17:51 97.6 F 61 18 100/53 L 93 L 07/17/18 14:15 69 17 100/49 L 98 07/17/18 14:13 72 28 H 07/17/18 14:12 79 23 07/17/18 14:11 74 24 07/17/18 14:10 73 21 07/17/18 14:09 74 16 07/17/18 14:08 72 12 07/17/18 14:07 74 17 07/17/18 14:06 72 16 07/17/18 14:05 72 15 07/17/18 14:04 75 17 07/17/18 14:03 76 16 07/17/18 14:02 77 15 07/17/18 14:01 73 16 07/17/18 14:00 76 90/39 L 07/17/18 13:59 77 23 07/17/18 13:58 76 22 07/17/18 13:57 80 19 07/17/18 13:56 78 19 Intake and Output (Last 8hrs): Intake & Output 07/17/18 07/17/18 07/17/18 06:59 14:59 22:59 Intake Total 830 Output Total 1200 Balance -370 Intake: IV 350 Left Upper arm 350 Oral 480 Output: Urine 1200 Urethral (Zendejas) 1200 Other: # Bowel Movements 3 - Medications Active Medications: Active Medications Generic Name Dose Route Start Last Admin Trade Name Freq PRN Reason Stop Dose Admin Calcium/Vitamin D 1 tab 07/14/18 10:00 07/17/18 09:49 Oscal-D 250 Mg-125 Units Tab PO 1 tab BID AGNES Administration Furosemide 20 mg 07/17/18 10:00 07/17/18 09:47 Lasix PO 20 mg DAILY AGNES Administration Guaifenesin 100 mg 07/14/18 23:30 07/15/18 00:35 Robitussin PO 100 mg Q4H PRN Administration Cough Micafungin Sodium 100 mg/ 100 mls @ 100 mls/hr 07/15/18 11:00 07/17/18 10:25 Sodium Chloride IV 07/22/18 11:01 100 mls/hr DAILY AGNES Administration Protocol Meropenem 1 gm in 50 mls @ 100 mls/hr 07/16/18 10:00 07/17/18 09:48 Merrem Iv 1 Gm Premix IVPB 100 mls/hr 0200,1000,1800 AGNSE Administration Protocol Insulin Human Regular 0 units 07/13/18 11:30 07/17/18 12:05 Humulin R High SC 7 u ACHS AGNES Administration Protocol Midodrine 10 mg 07/16/18 08:28 07/17/18 13:46 Proamatine PO 10 mg TID AGNES Administration Morphine Sulfate 2 mg 07/16/18 20:17 07/17/18 03:35 Morphine IVP 2 mg Q4H PRN Administration Pain, moderate (4-7) Multivitamins/Minerals 1 tab 07/17/18 08:00 07/17/18 09:47 Therapeutic-M Tab PO 1 tab 0800 AGNES Administration Ondansetron HCl 4 mg 07/12/18 06:07 07/12/18 06:20 Zofran Inj IVP 4 mg Q6H PRN Administration Nausea/Vomiting Oxycodone/Acetaminophen 1 tab 07/17/18 03:47 Percocet 5/325 Mg Tab PO 07/20/18 03:48 Q4H PRN Pain, moderate (4-7) Pantoprazole Sodium 40 mg 07/16/18 06:00 07/17/18 06:29 Protonix Ec Tab PO 40 mg 0600 AGNES Administration Potassium Phos/Sodium Phos 1 pkt 07/17/18 07:19 07/17/18 13:46 Neutra-Phos PO 1 pkt TID AGNES Administration Prednisone 20 mg 07/17/18 18:00 Prednisone Tab PO DAILY AGNES Pregabalin 50 mg 07/15/18 20:54 07/16/18 21:57 Lyrica PO 50 mg HS AGNES Administration Psyllium Hydrophilic Mucilloid 1 pkt 07/17/18 10:00 07/17/18 09:43 Hydrocil Instant PO 1 pkt BID AGNES Administration - Patient Studies Lab Studies: Microbiology Studies 07/13/18 09:20 Blood Culture - Preliminary Blood-Venous NO GROWTH AFTER 4 DAYS 07/13/18 09:10 Blood Culture - Preliminary Blood-Venous NO GROWTH AFTER 4 DAYS Lab Studies 07/17/18 07/17/18 07/17/18 Range/Units 11:27 08:20 07:47 WBC (4.5-11.0) 10^3/uL RBC (3.5-6.1) 10^6/uL Hgb (12.0-16.0) g/dL Hct (36.0-48.0) % MCV (80.0-105.0) fl MCH (25.0-35.0) pg MCHC (31.0-37.0) g/dl RDW (11.5-14.5) % Plt Count (120.0-450.0) 10^3/uL Gran % (50.0-68.0) % Lymph % (Auto) (22.0-35.0) % [place] % (Auto) (1.0-6.0) % Eos % (Auto) (1.5-5.0) % Baso % (Auto) (0.0-3.0) % Gran # (1.4-6.5) Lymph # (Auto) (1.2-3.4) [place] # (Auto) (0.1-0.6) Eos # (Auto) (0.0-0.7) Baso # (Auto) (0.0-2.0) K/mm3 Platelet Evaluation (NORMAL) Sodium (132-148) mmol/L Potassium (3.6-5.0) mmol/L Chloride (98-107) mmol/L Carbon Dioxide (21-33) mmol/L Anion Gap (10-20) BUN (7-21) mg/dL Creatinine (0.7-1.2) mg/dl Est GFR ( Amer) Est GFR (Non-Af Amer) POC Glucose (mg/dL) 266 H 242 H (65-110) mg/dL Random Glucose (70-110) mg/dL Calcium (8.4-10.5) mg/dL Phosphorus (2.5-4.5) mg/dL Magnesium (1.7-2.2) mg/dL Total Bilirubin (0.2-1.3) mg/dL AST (14-36) U/L ALT (7-56) U/L Alkaline Phosphatase (38-126) U/L Total Protein (5.8-8.3) g/dL Albumin (3.0-4.8) g/dL Globulin gm/dL Albumin/Globulin Ratio (1.1-1.8) Prealbumin 5.9 L (17.6-36.0) mg/dL 25-OH Vitamin D Total (30.0-100.0) NG/ML 07/17/18 07/17/18 07/17/18 Range/Units 05:31 05:31 05:31 WBC 2.6 L D (4.5-11.0) 10^3/uL RBC 2.84 L (3.5-6.1) 10^6/uL Hgb 8.8 L (12.0-16.0) g/dL Hct 26.6 L (36.0-48.0) % MCV 93.7 (80.0-105.0) fl MCH 31.0 (25.0-35.0) pg MCHC 33.1 (31.0-37.0) g/dl RDW 13.8 (11.5-14.5) % Plt Count 29 L* (120.0-450.0) 10^3/uL Gran % 82.1 H (50.0-68.0) % Lymph % (Auto) 12.1 L (22.0-35.0) % [place] % (Auto) 5.8 (1.0-6.0) % Eos % (Auto) 0.0 L (1.5-5.0) % Baso % (Auto) 0.0 (0.0-3.0) % Gran # 2.11 (1.4-6.5) Lymph # (Auto) 0.3 L (1.2-3.4) [place] # (Auto) 0.2 (0.1-0.6) Eos # (Auto) 0.0 (0.0-0.7) Baso # (Auto) 0.00 (0.0-2.0) K/mm3 Platelet Evaluation Low (NORMAL) Sodium 138 (132-148) mmol/L Potassium 3.5 L (3.6-5.0) mmol/L Chloride 112 H (98-107) mmol/L Carbon Dioxide 21 (21-33) mmol/L Anion Gap 8 L (10-20) BUN 18 (7-21) mg/dL Creatinine 0.8 (0.7-1.2) mg/dl Est GFR ( Amer) > 60 Est GFR (Non-Af Amer) > 60 POC Glucose (mg/dL) (65-110) mg/dL Random Glucose 232 H (70-110) mg/dL Calcium 6.2 L* (8.4-10.5) mg/dL Phosphorus 3.1 (2.5-4.5) mg/dL Magnesium 1.7 (1.7-2.2) mg/dL Total Bilirubin 1.2 (0.2-1.3) mg/dL AST 38 H (14-36) U/L ALT 43 (7-56) U/L Alkaline Phosphatase 103 (38-126) U/L Total Protein 4.5 L (5.8-8.3) g/dL Albumin 2.0 L (3.0-4.8) g/dL Globulin 2.5 gm/dL Albumin/Globulin Ratio 0.8 L (1.1-1.8) Prealbumin (17.6-36.0) mg/dL 25-OH Vitamin D Total 17.2 L (30.0-100.0) NG/ML 07/16/18 07/16/18 07/16/18 Range/Units 21:46 16:03 11:09 WBC (4.5-11.0) 10^3/uL RBC (3.5-6.1) 10^6/uL Hgb (12.0-16.0) g/dL Hct (36.0-48.0) % MCV (80.0-105.0) fl MCH (25.0-35.0) pg MCHC (31.0-37.0) g/dl RDW (11.5-14.5) % Plt Count (120.0-450.0) 10^3/uL Gran % (50.0-68.0) % Lymph % (Auto) (22.0-35.0) % [place] % (Auto) (1.0-6.0) % Eos % (Auto) (1.5-5.0) % Baso % (Auto) (0.0-3.0) % Gran # (1.4-6.5) Lymph # (Auto) (1.2-3.4) [place] # (Auto) (0.1-0.6) Eos # (Auto) (0.0-0.7) Baso # (Auto) (0.0-2.0) K/mm3 Platelet Evaluation (NORMAL) Sodium (132-148) mmol/L Potassium (3.6-5.0) mmol/L Chloride (98-107) mmol/L Carbon Dioxide (21-33) mmol/L Anion Gap (10-20) BUN (7-21) mg/dL Creatinine (0.7-1.2) mg/dl Est GFR ( Amer) Est GFR (Non-Af Amer) POC Glucose (mg/dL) 307 H 354 H 190 H (65-110) mg/dL Random Glucose (70-110) mg/dL Calcium (8.4-10.5) mg/dL Phosphorus (2.5-4.5) mg/dL Magnesium (1.7-2.2) mg/dL Total Bilirubin (0.2-1.3) mg/dL AST (14-36) U/L ALT (7-56) U/L Alkaline Phosphatase (38-126) U/L Total Protein (5.8-8.3) g/dL Albumin (3.0-4.8) g/dL Globulin gm/dL Albumin/Globulin Ratio (1.1-1.8) Prealbumin (17.6-36.0) mg/dL 25-OH Vitamin D Total (30.0-100.0) NG/ML 07/16/18 07/15/18 07/15/18 Range/Units 07:17 21:10 15:15 WBC (4.5-11.0) 10^3/uL RBC (3.5-6.1) 10^6/uL Hgb (12.0-16.0) g/dL Hct (36.0-48.0) % MCV (80.0-105.0) fl MCH (25.0-35.0) pg MCHC (31.0-37.0) g/dl RDW (11.5-14.5) % Plt Count (120.0-450.0) 10^3/uL Gran % (50.0-68.0) % Lymph % (Auto) (22.0-35.0) % [place] % (Auto) (1.0-6.0) % Eos % (Auto) (1.5-5.0) % Baso % (Auto) (0.0-3.0) % Gran # (1.4-6.5) Lymph # (Auto) (1.2-3.4) [place] # (Auto) (0.1-0.6) Eos # (Auto) (0.0-0.7) Baso # (Auto) (0.0-2.0) K/mm3 Platelet Evaluation (NORMAL) Sodium (132-148) mmol/L Potassium (3.6-5.0) mmol/L Chloride (98-107) mmol/L Carbon Dioxide (21-33) mmol/L Anion Gap (10-20) BUN (7-21) mg/dL Creatinine (0.7-1.2) mg/dl Est GFR ( Amer) Est GFR (Non-Af Amer) POC Glucose (mg/dL) 146 H 220 H 241 H (65-110) mg/dL Random Glucose (70-110) mg/dL Calcium (8.4-10.5) mg/dL Phosphorus (2.5-4.5) mg/dL Magnesium (1.7-2.2) mg/dL Total Bilirubin (0.2-1.3) mg/dL AST (14-36) U/L ALT (7-56) U/L Alkaline Phosphatase (38-126) U/L Total Protein (5.8-8.3) g/dL Albumin (3.0-4.8) g/dL Globulin gm/dL Albumin/Globulin Ratio (1.1-1.8) Prealbumin (17.6-36.0) mg/dL 25-OH Vitamin D Total (30.0-100.0) NG/ML 07/15/18 07/15/18 Range/Units 11:36 07:35 WBC (4.5-11.0) 10^3/uL RBC (3.5-6.1) 10^6/uL Hgb (12.0-16.0) g/dL Hct (36.0-48.0) % MCV (80.0-105.0) fl MCH (25.0-35.0) pg MCHC (31.0-37.0) g/dl RDW (11.5-14.5) % Plt Count (120.0-450.0) 10^3/uL Gran % (50.0-68.0) % Lymph % (Auto) (22.0-35.0) % [place] % (Auto) (1.0-6.0) % Eos % (Auto) (1.5-5.0) % Baso % (Auto) (0.0-3.0) % Gran # (1.4-6.5) Lymph # (Auto) (1.2-3.4) [place] # (Auto) (0.1-0.6) Eos # (Auto) (0.0-0.7) Baso # (Auto) (0.0-2.0) K/mm3 Platelet Evaluation (NORMAL) Sodium (132-148) mmol/L Potassium (3.6-5.0) mmol/L Chloride (98-107) mmol/L Carbon Dioxide (21-33) mmol/L Anion Gap (10-20) BUN (7-21) mg/dL Creatinine (0.7-1.2) mg/dl Est GFR ( Amer) Est GFR (Non-Af Amer) POC Glucose (mg/dL) 160 H 113 H (65-110) mg/dL Random Glucose (70-110) mg/dL Calcium (8.4-10.5) mg/dL Phosphorus (2.5-4.5) mg/dL Magnesium (1.7-2.2) mg/dL Total Bilirubin (0.2-1.3) mg/dL AST (14-36) U/L ALT (7-56) U/L Alkaline Phosphatase (38-126) U/L Total Protein (5.8-8.3) g/dL Albumin (3.0-4.8) g/dL Globulin gm/dL Albumin/Globulin Ratio (1.1-1.8) Prealbumin (17.6-36.0) mg/dL 25-OH Vitamin D Total (30.0-100.0) NG/ML Laboratory Results - last 24 hr 07/15/18 07/15/18 07/15/18 07:35 11:36 15:15 WBC RBC Hgb Hct MCV MCH MCHC RDW Plt Count Gran % Lymph % (Auto) [place] % (Auto) Eos % (Auto) Baso % (Auto) Gran # Lymph # (Auto) [place] # (Auto) Eos # (Auto) Baso # (Auto) Platelet Evaluation Sodium Potassium Chloride Carbon Dioxide Anion Gap BUN Creatinine Est GFR ( Amer) Est GFR (Non-Af Amer) POC Glucose (mg/dL) 113 H 160 H 241 H Random Glucose Calcium Phosphorus Magnesium Total Bilirubin AST ALT Alkaline Phosphatase Total Protein Albumin Globulin Albumin/Globulin Ratio Prealbumin 25-OH Vitamin D Total 07/15/18 07/16/18 07/16/18 21:10 07:17 11:09 WBC RBC Hgb Hct MCV MCH MCHC RDW Plt Count Gran % Lymph % (Auto) [place] % (Auto) Eos % (Auto) Baso % (Auto) Gran # Lymph # (Auto) [place] # (Auto) Eos # (Auto) Baso # (Auto) Platelet Evaluation Sodium Potassium Chloride Carbon Dioxide Anion Gap BUN Creatinine Est GFR ( Amer) Est GFR (Non-Af Amer) POC Glucose (mg/dL) 220 H 146 H 190 H Random Glucose Calcium Phosphorus Magnesium Total Bilirubin AST ALT Alkaline Phosphatase Total Protein Albumin Globulin Albumin/Globulin Ratio Prealbumin 25-OH Vitamin D Total 07/16/18 07/16/18 07/17/18 16:03 21:46 05:31 WBC RBC Hgb Hct MCV MCH MCHC RDW Plt Count Gran % Lymph % (Auto) [place] % (Auto) Eos % (Auto) Baso % (Auto) Gran # Lymph # (Auto) [place] # (Auto) Eos # (Auto) Baso # (Auto) Platelet Evaluation Sodium 138 Potassium 3.5 L Chloride 112 H Carbon Dioxide 21 Anion Gap 8 L BUN 18 Creatinine 0.8 Est GFR ( Amer) > 60 Est GFR (Non-Af Amer) > 60 POC Glucose (mg/dL) 354 H 307 H Random Glucose 232 H Calcium 6.2 L* Phosphorus 3.1 Magnesium 1.7 Total Bilirubin 1.2 AST 38 H ALT 43 Alkaline Phosphatase 103 Total Protein 4.5 L Albumin 2.0 L Globulin 2.5 Albumin/Globulin Ratio 0.8 L Prealbumin 25-OH Vitamin D Total 07/17/18 07/17/18 07/17/18 05:31 05:31 07:47 WBC 2.6 L D RBC 2.84 L Hgb 8.8 L Hct 26.6 L MCV 93.7 MCH 31.0 MCHC 33.1 RDW 13.8 Plt Count 29 L* Gran % 82.1 H Lymph % (Auto) 12.1 L [place] % (Auto) 5.8 Eos % (Auto) 0.0 L Baso % (Auto) 0.0 Gran # 2.11 Lymph # (Auto) 0.3 L [place] # (Auto) 0.2 Eos # (Auto) 0.0 Baso # (Auto) 0.00 Platelet Evaluation Low Sodium Potassium Chloride Carbon Dioxide Anion Gap BUN Creatinine Est GFR ( Amer) Est GFR (Non-Af Amer) POC Glucose (mg/dL) 242 H Random Glucose Calcium Phosphorus Magnesium Total Bilirubin AST ALT Alkaline Phosphatase Total Protein Albumin Globulin Albumin/Globulin Ratio Prealbumin 25-OH Vitamin D Total 17.2 L 07/17/18 07/17/18 08:20 11:27 WBC RBC Hgb Hct MCV MCH MCHC RDW Plt Count Gran % Lymph % (Auto) [place] % (Auto) Eos % (Auto) Baso % (Auto) Gran # Lymph # (Auto) [place] # (Auto) Eos # (Auto) Baso # (Auto) Platelet Evaluation Sodium Potassium Chloride Carbon Dioxide Anion Gap BUN Creatinine Est GFR ( Amer) Est GFR (Non-Af Amer) POC Glucose (mg/dL) 266 H Random Glucose Calcium Phosphorus Magnesium Total Bilirubin AST ALT Alkaline Phosphatase Total Protein Albumin Globulin Albumin/Globulin Ratio Prealbumin 5.9 L 25-OH Vitamin D Total Critical Care Progress Note - Nutrition Nutrition: Nutrition Category Date Time Status Diabetic [Consistent Carbohydrate] [DIET] Diets 07/11/18 Dinner Ordered Addendum Addendum: 07/17/18 17:56 ICU ATTENDING : Patent seen and examined with housestaff. Agree with progress note with following additions/exceptions: 72F with hx of recurrent nephrolithiasis, recurrent UTI/urosepsis, ureterovesicular reflux, DM2, Crohn's disease, h/o subdural hematoma, pancytopenia admitted to the MICU with septic shock likely urosepsis Renal US shows mulitple stones BL with mild hydronephrosis. Discussed case with Urology Dr Win and Dr. Valera (IR) who recommended holding off on intervention at this point. Treating medically Now off pressors on steroids for adrenal insuff midodrine as well ID on board managing abx for ecoli bacteremia CT Head did show small SAH chronic low plat Neuro managing MRI findings of possible stroke PPI for GI PPX SCDs for DVT ppx Ok for transfer out of ICU Rest of care as above Arleth Chaparro MD Pulmonary, Critical Care and Sleep Medicine
[2018-07-17 11:23] LABS: PLATELET ESTIMATE LOW (NORMAL)
--- NOTE | 2018-07-17 12:17 | CP.PCM.PN ---
Subjective - Date & Time of Evaluation Date of Evaluation: 07/17/18 Time of Evaluation: 12:17 - Subjective Subjective: Nephrology Consultation Note: Assessment: stable CODY: improved HAGMA with lactic acidosis Hypokalemia GNR sepsis with shock diabetes Mellitus ( years), b/l kidney stones and recurrent UTIs, gastric bypass surgery, UV reflux, crohns disease, splenomegaly, pancytopenia hypophosphatemia, hypokalemia subarachnoid hemorrhage and acute CVA severe sys CHF LVEF 30% Plan No acute need for renal replacement therapy at this time. Maintain hemodynamics stable. Avoid hypotension. Patient not on ACEI/ARB due to shock Monitor Input/Output, daily weights and renal function with basic metabolic panel supplement lytes as needed renal sono reviewed. ID, IR and urology involved check urine pro/cr and alb/cr legs compressive stockings added low dose lasix from today as tolerated by BP supplemented Ca, on Oscal D, check Vit D level Dose meds/antibiotics for improved GFR. Glycemic control Further work up/management as per primary team Thanks for allowing me to participate in care of your patient. Will follow patient with you. Please call if any Qs. had d/w team and family Dr Chad Jernigan Office: [phone] Chief Complaint; fever/chills Reason for consult: acidosis and hypokalemia HPI: Pt is a 72 F with hx of diabetes Mellitus ( years), b/l kidney stones and recurrent UTIs, ileum bypass surgery, UV reflux, crohn's disease, splenomegaly, pancytopenia ? HSP presented with complaints of fever and chhills, admitted to ICU with sepsis with shock requiring pressors and lactic acidosis. no knwon OTC/herbal meds or NSAIDs Noted recent iodinated contrast exposure. Noted obvious episodes of low BP. per , pt got sick for last couple of days ROS: pt more awake. c/o some SOB and leg swelling. overall ROS still limited Physical Examination: General Appearance: in no acute respiratory distress, ill appearing Vitals reviewed and noted as below Head; Atraumatic, normocephalic ENT: no ulcers no thrush. Tongue is midline. Oropharynx: no rash or ulcers. EYES: Pupils are equal, round and reactive to light accommodation. Eye muscles and extraocular movement intact. Sclera is anicteric. Neck; supple no lymphadenopathy, no thyromegaly or bruit Lungs: Normal respiratory rate/effort. Breath sounds bilateral decreased at ba ses with few crackle Heart: Increased rate. s1s2 normal. No rub or gallop. Extremities: 2+ edema. No varicose veins Neurological: Patient is awake but not much communicative Skin: Warm and dry. Normal turgor. No rash. Palpitation: Normal elasticity for age Abdomen: Abdomen is soft. Bowel sounds +. There is no abdominal tenderness, no guarding/rigidity no organomegaly Psych: unable MSK: no joint tenderness or swelling. Digits and nails normal, no deformity : kidney or bladder not palpable Labs/imaging reviewed. Past medical history, past surgical history, family history, social history, allergy reviewed and noted as below Family hx: no hx of CKD. Rest non-contributory Objective - Vital Signs/Intake and Output Vital Signs (last 24 hours): Temp Pulse Resp BP Pulse Ox 98.7 F 81 18 106/55 L 96 07/16/18 20:00 07/16/18 22:00 07/16/18 18:56 07/17/18 09:47 07/16/18 17:00 - Medications Medications: Current Medications Calcium/Vitamin D (Oscal-D 250 Mg-125 Units Tab) 1 tab PO BID AGNES Last Admin: 07/17/18 09:49 Dose: 1 tab Furosemide (Lasix) 20 mg PO DAILY AGNES Last Admin: 07/17/18 09:47 Dose: 20 mg Guaifenesin (Robitussin) 100 mg PO Q4H PRN PRN Reason: Cough Last Admin: 07/15/18 00:35 Dose: 100 mg Dexmedetomidine HCl (Precedex 400mcg/100ml) 400 mcg in 100 mls @ 2.767 mls/hr IV .Q24H PRN; Protocol PRN Reason: Agitation Last Admin: 07/14/18 06:40 Dose: 0.2 mcg/kg/hr, 2.767 mls/hr Micafungin Sodium 100 mg/ (Sodium Chloride) 100 mls @ 100 mls/hr IV DAILY AGNES; Protocol Stop: 07/22/18 11:01 Last Admin: 07/17/18 10:25 Dose: 100 mls/hr Meropenem (Merrem Iv 1 Gm Premix) 1 gm in 50 mls @ 100 mls/hr IVPB 0200,1000,1800 [facility]; Protocol Last Admin: 07/17/18 09:48 Dose: 100 mls/hr Insulin Human Regular (Humulin R High) 0 units SC ACHS [facility]; Protocol Last Admin: 07/17/18 12:05 Dose: 7 u Midodrine (Proamatine) 10 mg PO TID [facility] Last Admin: 07/17/18 09:49 Dose: 10 mg Morphine Sulfate (Morphine) 2 mg IVP Q4H PRN PRN Reason: Pain, moderate (4-7) Last Admin: 07/17/18 03:35 Dose: 2 mg Multivitamins/Minerals (Therapeutic-M Tab) 1 tab PO 0800 [facility] Last Admin: 07/17/18 09:47 Dose: 1 tab Ondansetron HCl (Zofran Inj) 4 mg IVP Q6H PRN PRN Reason: Nausea/Vomiting Last Admin: 07/12/18 06:20 Dose: 4 mg Oxycodone/Acetaminophen (Percocet 5/325 Mg Tab) 1 tab PO Q4H PRN PRN Reason: Pain, moderate (4-7) Stop: 07/20/18 03:48 Pantoprazole Sodium (Protonix Ec Tab) 40 mg PO 0600 [facility] Last Admin: 07/17/18 06:29 Dose: 40 mg Potassium Phos/Sodium Phos (Neutra-Phos) 1 pkt PO TID [facility] Last Admin: 07/17/18 09:48 Dose: 1 pkt Prednisone (Prednisone Tab) 20 mg PO DAILY [facility] Pregabalin (Lyrica) 50 mg PO HS [facility] Last Admin: 07/16/18 21:57 Dose: 50 mg Psyllium Hydrophilic Mucilloid (Hydrocil Instant) 1 pkt PO BID [facility] Last Admin: 07/17/18 09:43 Dose: 1 pkt - Labs Labs: 07/17/18 05:31 07/17/18 05:31 PT 16.3 SECONDS (9.4-12.5) H 07/11/18 05:30 INR 1.41 07/11/18 05:30 APTT 24.2 Seconds (25.1-36.5) L 07/11/18 05:30
--- NOTE | 2018-07-17 14:23 | PN ---
DATE: 07/17/2018 CARDIOLOGY FOLLOWUP SUBJECTIVE: The patient is awake and hungry. PHYSICAL EXAMINATION VITAL SIGNS: Blood pressure 106/55, heart rate in the 80s. NECK: Negative JVD. LUNGS: Without rales. HEART: S1 and S2. EXTREMITIES: Without edema. LABORATORY DATA: Hemoglobin is 8.8, white count is 2.1, platelet count is 29,000. Chemistries: BUN and creatinine are unremarkable. IMPRESSION: 1. Cerebrovascular accident. 2. Subarachnoid bleed. 3. Dilated cardiomyopathy. 4. Anemia. 5. Thrombocytopenia. PLAN: Given these findings, the patient is hemodynamically stable. However, Neuro has ordered a LESLY. The question that I have for Neuro is that depending on the findings will this really alter her treatment at this time. We will discuss with Neuro. Carter Farmer MD
--- NOTE | 2018-07-17 17:04 | CP.PCM.PN ---
Subjective - Date & Time of Evaluation Date of Evaluation: 07/16/18 Time of Evaluation: 09:55 - Subjective Subjective: Comfortable in bed, more awake today, no fevers. Objective - Vital Signs/Intake and Output Vital Signs (last 24 hours): Temp Pulse Resp BP Pulse Ox 97.8 F 78 25 H 104/56 L 99 07/15/18 08:00 07/15/18 10:00 07/15/18 10:00 07/15/18 10:00 07/15/18 10:00 Intake and Output: 07/15/18 07/15/18 06:59 18:59 Intake Total 27 Output Total 800 Balance -773 - Medications Medications: Current Medications Calcium/Vitamin D (Oscal-D 250 Mg-125 Units Tab) 1 tab PO BID AGNES Last Admin: 07/15/18 09:06 Dose: 1 tab Guaifenesin (Robitussin) 100 mg PO Q4H PRN PRN Reason: Cough Last Admin: 07/15/18 00:35 Dose: 100 mg Meropenem (Merrem Iv 1 Gm Premix) 1 gm in 50 mls @ 100 mls/hr IVPB Q12 AGNES; Protocol Last Admin: 07/15/18 09:06 Dose: 100 mls/hr NOREPINEPHRINE BIT/0.9 % NACL (Levophed 4 Mg/ 250 Ml Ns Premixed) 4 mg in 250 mls @ 15 mls/hr IV .[id number] PRN; Protocol PRN Reason: TITRATE PER MD ORDER Last Titration: 07/14/18 23:30 Dose: 2 mcg/min, 7.5 mls/hr Dexmedetomidine HCl (Precedex 400mcg/100ml) 400 mcg in 100 mls @ 2.767 mls/hr IV .Q24H PRN; Protocol PRN Reason: Agitation Last Admin: 07/14/18 06:40 Dose: 0.2 mcg/kg/hr, 2.767 mls/hr Sodium Chloride (Sodium Chloride 0.9%) 1,000 mls @ 30 mls/hr IV .Q24H AGNES Stop: 07/16/18 10:31 Last Admin: 07/14/18 10:41 Dose: 30 mls/hr Insulin Human Regular (Humulin R High) 0 units SC ACHS AGNES; Protocol Last Admin: 11/11/18 08:52 Dose: Not Given Midodrine (Proamatine) 5 mg PO TID [facility] Last Admin: 07/15/18 09:06 Dose: 5 mg Morphine Sulfate (Morphine) 2 mg IVP Q6H PRN PRN Reason: Pain, severe (8-10) Last Admin: 07/14/18 19:12 Dose: 2 mg Ondansetron HCl (Zofran Inj) 4 mg IVP Q6H PRN PRN Reason: Nausea/Vomiting Last Admin: 07/12/18 06:20 Dose: 4 mg Pantoprazole Sodium (Protonix Inj) 40 mg IVP DAILY [facility] Last Admin: 07/15/18 09:07 Dose: 40 mg - Labs Labs: 07/15/18 05:50 07/15/18 05:50 PT 16.3 SECONDS (9.4-12.5) H 07/11/18 05:30 INR 1.41 07/11/18 05:30 APTT 24.2 Seconds (25.1-36.5) L 07/11/18 05:30 - Constitutional Appears: Cachectic, Chronically Ill - Head Exam Head Exam: NORMAL INSPECTION - Respiratory Exam Respiratory Exam: Decreased Breath Sounds - Cardiovascular Exam Cardiovascular Exam: +S1, +S2 - GI/Abdominal Exam GI & Abdominal Exam: Soft. absent: Tenderness Assessment and Plan - Assessment and Plan (Free Text) Plan: Assessment septic shock with acute renal failure, toxic-metabolic encephalopathy, slowly improving (on top of small left frontal lobe subarachnoid hemorrhage as seen on head CT) due to E. coli bacteremia, consider due to pyelonephritis in this patient with history of nephrolithiasis and obstructive uropathy, but also yesy wing E. faecalis and Proteus in the urine, R/O infected nephrolithiasis - other differential diagnosis is intra-abdominal infection but CT A/P does not show specific source of infection in the abdomen history of severe sepsis probably due to urinary tract infection in a patient with a history of nephrolithiasis S/P pigtail catheter placement history of right sided pyelonephritis associated with nephrolithiasis with E. faecalis Crohn's disease DM history of pyelonephritis bilateral nephrolithiasis S/P cholecystectomy S/P tubal ligation Plan will continue intermittent IV Vancomycin and continue Merrem and follow up repeat urine cx; repeat blood cx are negative; repeat urine cx is showing yeast which may be colonization but given her history of nephrolithiasis, will treat with Mycamine and follow up repeat urine cx - will need 2 weeks from 07/11/[address] A/P showing multiple kidney stones and ureteral stents reviewed Urology evaluation - agree that patient needs Urologic procedure but patient is still too unstable to undergo procedures will continue to monitor clinically prognosis is guarded at best
--- NOTE | 2018-07-17 18:26 | US ---
PROCEDURE: Right upper extremity venous US CLINICAL HISTORY: Arm pain and swelling Evaluate for deep venous thrombosis. PHYSICIAN(S): Carter Valera M.D FINDINGS: There is localized thrombus in the right axillary vein and right basilic vein in the upper arm. It is somewhat heterogeneous. The right subclavian vein and right internal jugular vein are patent. IMPRESSION: 1. Localized thrombus in the right axillary vein and proximal right basilic vein
[2018-07-17] MEDS: Oxycodone/Acetaminophen 5/325 mg Tab PO PRN (22:22)
[2018-07-18] MEDS: Morphine 2 mg/ml ISec IVP PRN ×2 (00:56→16:50)
[2018-07-18] MEDS: Meropenem IV 1 gm in NS 1 GM/50 ML BAG IVPB SCH ×3 (02:18→17:32)
[2018-07-18] MEDS: Pantoprazole 40 mg EC Tab PO SCH (05:51)
[2018-07-18 06:30] LABS: INR 1.96; PARTIAL THROMBOPLASTIN TIME 26.5 Seconds (25.1-36.5); PROTHROMBIN TIME 22.8 SECONDS (9.4-12.5)
[2018-07-18 06:43] LABS: BASO # 0.01 K/mm3 (0.0-2.0); BASO % 0.2 % (0.0-3.0); EOS % 0.2 % (1.5-5.0); GRAN # 3.75 (1.4-6.5); GRAN % 79.5 % (50.0-68.0); HEMOGLOBIN 9.2 g/dL (12.0-16.0); LYMPH # 0.7 (1.2-3.4); LYMPH % 14.2 % (22.0-35.0); MEAN CELL VOLUME 93.5 fl (80.0-105.0); MEAN CORPUSCULAR HEMOGLOBIN 31.3 pg (25.0-35.0); MEAN CORPUSCULAR HGB CONC 33.5 g/dl (31.0-37.0); MONO # 0.3 (0.1-0.6); MONO % 5.9 % (1.0-6.0); PLATELET COUNT 56 10^3/uL (120.0-450.0); RBC 2.94 10^6/uL (3.5-6.1); WHITE BLOOD COUNT 4.7 10^3/uL (4.5-11.0)
[2018-07-18 06:52] LABS: ALB/GLOB RATIO 0.8 (1.1-1.8); ALT/SGPT 50 U/L (7-56); AST/SGOT 50 U/L (14-36); BLOOD UREA NITROGEN 17 mg/dL (7-21); CALCIUM 6.2 mg/dL (8.4-10.5); GFR NON-AFRICAN AMERICAN > 60
[2018-07-18] MEDS ORDERED: Potassium Chloride 20 mEq ER Tab PO STA (08:33)
[2018-07-18] MEDS ORDERED: Magnesium Sulfate 1 gm in D5W 1 GM/100 ML BAG IVPB ONE (08:37)
[2018-07-18] MEDS: Multivitamin With Minerals Tab PO SCH (08:52)
[2018-07-18] MEDS: Insulin Reg-HIGH-Coverage SC SCH ×4 (08:52→22:38)
[2018-07-18] MEDS: Psyllium Packet PO SCH ×2 (10:00→17:31)
[2018-07-18] MEDS: Micafungin 100 MG in Sodium Chloride 0.9% 100 ML IV SCH (10:01)
[2018-07-18] MEDS: Calcium-Vit D 250 mg-125 Units Tab UD PO SCH ×2 (10:01→17:32)
[2018-07-18] MEDS: Potassium & Sodium Phosphate PO SCH ×3 (10:01→17:34)
--- NOTE | 2018-07-18 14:41 | CP.PCM.PN ---
<Sivakumar Vázquez - Last Filed: 07/18/18 14:37> Subjective - Date & Time of Evaluation Date of Evaluation: 07/18/18 Time of Evaluation: 07:00 - Subjective Subjective: Sivakumar Vázquez, PGY1 Medicine Progress Note for Dr. Knutson Patient was seen and examined at bedside this morning. Vital signs are stable. Patient has some low back pain. She is AAOx3 at baseline mental status. R-IJ is still in place. Patient denies cp, sob, n/v/d. No adverse overnight changes. A full 12 point ROS was conducted and unremarkable except as stated above. Objective - Vital Signs/Intake and Output Vital Signs (last 24 hours): Temp Pulse Resp BP Pulse Ox 97.4 F L 67 20 104/61 99 07/18/18 08:48 07/18/18 08:48 07/18/18 08:48 07/18/18 10:00 07/18/18 08:48 Intake and Output: 07/18/18 07/18/18 06:59 18:59 Intake Total 290 Output Total 2400 Balance -2110 - Medications Medications: Current Medications Calcium/Vitamin D (Oscal-D 250 Mg-125 Units Tab) 1 tab PO BID [facility] Last Admin: 07/18/18 10:01 Dose: 1 tab Furosemide (Lasix) 20 mg PO DAILY [facility] Last Admin: 07/18/18 10:00 Dose: 20 mg Guaifenesin (Robitussin) 100 mg PO Q4H PRN PRN Reason: Cough Last Admin: 07/15/18 00:35 Dose: 100 mg Micafungin Sodium 100 mg/ (Sodium Chloride) 100 mls @ 100 mls/hr IV DAILY [facility]; Protocol Stop: 07/22/18 11:01 Last Admin: 07/18/18 10:01 Dose: 100 mls/hr Meropenem (Merrem Iv 1 Gm Premix) 1 gm in 50 mls @ 100 mls/hr IVPB 0200,1000,1800 [facility]; Protocol Last Admin: 07/18/18 10:01 Dose: 100 mls/hr Insulin Human Regular (Humulin R High) 0 units SC ACHS [facility]; Protocol Last Admin: 07/18/18 13:31 Dose: 2 u Midodrine (Proamatine) 10 mg PO TID [facility] Last Admin: 07/18/18 13:32 Dose: 10 mg Morphine Sulfate (Morphine) 2 mg IVP Q4H PRN PRN Reason: Pain, moderate (4-7) Last Admin: 07/18/18 00:56 Dose: 2 mg Multivitamins/Minerals (Therapeutic-M Tab) 1 tab PO 0800 [facility] Last Admin: 07/18/18 08:52 Dose: 1 tab Ondansetron HCl (Zofran Inj) 4 mg IVP Q6H PRN PRN Reason: Nausea/Vomiting Last Admin: 07/12/18 06:20 Dose: 4 mg Oxycodone/Acetaminophen (Percocet 5/325 Mg Tab) 1 tab PO Q4H PRN PRN Reason: Pain, moderate (4-7) Stop: 07/20/18 03:48 Last Admin: 07/17/18 22:22 Dose: 1 tab Pantoprazole Sodium (Protonix Ec Tab) 40 mg PO 0600 [facility] Last Admin: 07/18/18 05:51 Dose: 40 mg Potassium Phos/Sodium Phos (Neutra-Phos) 1 pkt PO TID [facility] Last Admin: 07/18/18 13:32 Dose: 1 pkt Prednisone (Prednisone Tab) 20 mg PO DAILY [facility] Last Admin: 07/18/18 10:02 Dose: 20 mg Pregabalin (Lyrica) 50 mg PO HS [facility] Last Admin: 07/17/18 21:20 Dose: 50 mg Psyllium Hydrophilic Mucilloid (Hydrocil Instant) 1 pkt PO BID [facility] Last Admin: 07/18/18 10:00 Dose: 1 pkt - Labs Labs: 07/18/18 06:00 07/18/18 06:00 PT 22.8 SECONDS (9.4-12.5) H 07/18/18 06:00 INR 1.96 07/18/18 06:00 APTT 26.5 Seconds (25.1-36.5) 07/18/18 06:00 - Constitutional Appears: No Acute Distress - Head Exam Head Exam: ATRAUMATIC, NORMAL INSPECTION, NORMOCEPHALIC - Eye Exam Eye Exam: EOMI, Normal appearance, PERRL - ENT Exam ENT Exam: Mucous Membranes Moist, Normal Exam - Respiratory Exam Respiratory Exam: Clear to Ausculation Bilateral, NORMAL BREATHING PATTERN. absent: Rales, Rhonchi, Wheezes - Cardiovascular Exam Cardiovascular Exam: REGULAR RHYTHM, +S1, +S2. absent: Murmur - GI/Abdominal Exam GI & Abdominal Exam: Soft, Normal Bowel Sounds. absent: Tenderness - Extremities Exam Extremities Exam: absent: Calf Tenderness Additional comments: Right upper extremity and right lower extremity weakness 2/2 stroke. Right upper extremity is swollen compared to left upper extremity. - Neurological Exam Neurological Exam: Alert, Awake, CN II-XII Intact, Normal Gait, Oriented x3 Neuro motor strength exam: Left Upper Extremity: 5, Right Upper Extremity: 3, Left Lower Extremity: 5, Right Lower Extremity: 2/1 - Skin Skin Exam: Dry, Intact, Normal Color, Warm Assessment and Plan - Assessment and Plan (Free Text) Assessment: Patient is a 72 y/o F with PMHx of recurrent nephrolithiasis, recurrent UTIs, ureterovesicular reflux, DM2, Crohn's disease, h/o subdural hematoma brought in by EMS to [facility] with complaints of fever/chills/diarrhea x 2days. Patient was admitted to ICU for AMS due to E. Coli Bacteremia in the setting of septic shock 2/2 Uropesis with recurrent nephrolithiasis. Patient was also found to have Acute cortical infarcts with stable subarachnoid hemorrhage. She also presented with NSTEMI and thrombocytopenia. Plan: AMS due to E. Coli Bacteremia in the setting of Septic Shock 2/2 Urosepsis with Hx of recurrent nephrolithiasis - f/u recommendations from urology about procedural intervention since patient is now in a stable condition (no longer septic) - Improving mental status; AAOx3 today - c/w midodrine - c/w prednisone 20mg - c/w merrem - repeat urine cx +yeast; c/w Mycamine as per ID - Leukocytosis downtrending to 2.6 today - Blood cx grew E. Coli - Urine cx grew Proteus mirabilis and enterococcus faecalis - C. Diff and MRSA negative - Echo: EF 30%. Global hypoknesis of the left ventricle. No thrombus noted. - Urology recs appreciated: patient is not a candidate for general anesthesia at this time due to septic shock. - Abdomen/Pelvis CT (07/12): large stone in the R-renal pelvis measuring 24x32 mm. There are 3 separate 5 mm stones in the right distal ureter adjacent to the ureteral stent. There is a left ureteral stent. There is a 10 mm stone within within proximal pigtail. There is a 14 mm nonobstructing stone in the lower pole of the L-kidney. Acute/subacute cortical infarctions in the frontal, parietal, and occipital cortex with stable subarachnoid Hemorrhage - LESLY ordered was placed by Dr. Hutchinson - Neuro recommends appreciated: LESLY and PT/ST/OT - MRI (07/14): small multifocal late acute/subacute cortical infarctions in the high frontal parietal and to a lesser extent occipital cortex. - Head/Neck CTA (07/12): unremarkable. - Head CT (07/11): 1.5 cm subarachnoid hemorrhage in the left frontal lobe - Patient has hx of subdural hematoma Thrombocytopenia - Platelets today are 56; consider starting anticoagulation when platelets are improved; pending Heme recommendations. - Discussed with patient that she cannot be on blood thinners due to recent stroke. Patient verbalized understanding. - Right upper extremity Ultrasound: thrombus at the right axillary vein and proximal right basilic vein. - Heme/onc consulted. Pending recommendations. - Platelets are 56 today. Total of x3 platelet transfusions. - Patient has a hx of thrombocytopenia NSTEMI - elevated troponins likely secondary to stroke - Cardio consulted. Recs appreciated. Patient is not a suitable candidate for anticoagulation, betablockers, or ACEI at this time. - Elevated troponin at 1.12 - likely due to new finding of stroke - EKG changes: sinus tachy with T wave depressions noted Electrolyte Abnormalities due to Sepsis (Hypocalcemia, Hypomagnesemia, Hypopho sphatemia) - Corrected calcium is 7.8; repleted - Patient given albumin - Mg and Phos; replete as needed - Nephro recs appreciated DVT ppx: SCD GI ppx: PTX Dispo: Patient is transferred to the floor. Pending recommendations from Hematology. Possible LESLY as per cardiology. Case was discussed and reviewed with Attending Physician, Dr. Knutson. <Dainne Knutson - Last Filed: 07/18/18 17:30> Objective - Vital Signs/Intake and Output Vital Signs (last 24 hours): Temp Pulse Resp BP Pulse Ox 97.7 F 59 L 19 114/59 L 97 07/18/18 17:08 07/18/18 17:08 07/18/18 17:08 07/18/18 17:08 07/18/18 17:08 Intake and Output: 07/18/18 07/18/18 06:59 18:59 Intake Total 290 Output Total 2400 Balance -2110 - Medications Medications: Current Medications Calcium/Vitamin D (Oscal-D 250 Mg-125 Units Tab) 1 tab PO BID [facility] Last Admin: 07/18/18 10:01 Dose: 1 tab Ergocalciferol (Drisdol 50,000 Intl Units Cap) 1 cap PO Q7D [facility] Furosemide (Lasix) 20 mg PO DAILY [facility] Last Admin: 07/18/18 10:00 Dose: 20 mg Guaifenesin (Robitussin) 100 mg PO Q4H PRN PRN Reason: Cough Last Admin: 07/15/18 00:35 Dose: 100 mg Meropenem (Merrem Iv 1 Gm Premix) 1 gm in 50 mls @ 100 mls/hr IVPB 0200,1000,1800 [facility]; Protocol Last Admin: 07/18/18 10:01 Dose: 100 mls/hr Insulin Human Regular (Humulin R High) 0 units SC ACHS [facility]; Protocol Last Admin: 07/18/18 13:31 Dose: 2 u Magnesium Oxide (Mag-Ox) 400 mg PO BID [facility] Midodrine (Proamatine) 10 mg PO TID [facility] Last Admin: 07/18/18 13:32 Dose: 10 mg Morphine Sulfate (Morphine) 2 mg IVP Q4H PRN PRN Reason: Pain, moderate (4-7) Last Admin: 07/18/18 16:50 Dose: 2 mg Multivitamins/Minerals (Therapeutic-M Tab) 1 tab PO 0800 [facility] Last Admin: 07/18/18 08:52 Dose: 1 tab Ondansetron HCl (Zofran Inj) 4 mg IVP Q6H PRN PRN Reason: Nausea/Vomiting Last Admin: 07/12/18 06:20 Dose: 4 mg Oxycodone/Acetaminophen (Percocet 5/325 Mg Tab) 1 tab PO Q4H PRN PRN Reason: Pain, moderate (4-7) Stop: 07/20/18 03:48 Last Admin: 07/17/18 22:22 Dose: 1 tab Pantoprazole Sodium (Protonix Ec Tab) 40 mg PO 0600 [facility] Last Admin: 07/18/18 05:51 Dose: 40 mg Potassium Chloride (K-Dur 20 Meq Er Tab) 20 meq PO BRK [facility] Potassium Phos/Sodium Phos (Neutra-Phos) 1 pkt PO TID [facility] Last Admin: 07/18/18 13:32 Dose: 1 pkt Prednisone (Prednisone Tab) 20 mg PO DAILY [facility] Last Admin: 07/18/18 10:02 Dose: 20 mg Pregabalin (Lyrica) 50 mg PO HS [facility] Last Admin: 07/17/18 21:20 Dose: 50 mg Psyllium Hydrophilic Mucilloid (Hydrocil Instant) 1 pkt PO BID [facility] Last Admin: 07/18/18 10:00 Dose: 1 pkt - Labs Labs: 07/18/18 06:00 07/18/18 06:00 PT 22.8 SECONDS (9.4-12.5) H 07/18/18 06:00 INR 1.96 07/18/18 06:00 APTT 26.5 Seconds (25.1-36.5) 07/18/18 06:00 Attending/Attestation - Attestation I have personally seen and examined this patient.: Yes I have fully participated in the care of the patient.: Yes I have reviewed all pertinent clinical information, including history, physical exam and plan: Yes Notes (Text): 07/18/18 17:15 patient was seen and examined with biomedical technician. 72 year old female with past medical history of UTI, nephrolithiasis, diabetes, and Sub dural hematoma who presented with fever and chills. She was found to have septic shock secondary to gram negative bacteremia and UTI and admitted to the ICU. . D. Blood culture grew E Coli x 2 and UCx is growing Proteus Mirabilis and Enterobacter Faecalis. Repeat UCx grew yeast species likely colonization. CT abd/pelvis showed large stone (24x32 mm) in the right renal pelvis and 3 separate 5 mm stones in the right distal ureter adjacent to the ureteral stent; left ureteral stent with 10 mm stone within proximal pigtail; no hydronephrosis. Renal ultrasound showed bilateral proximal ureteral stones, larger on right; and small bilateral non-obstructing stones. Urology is following; plan uro logical intervention once patient is more stable as out patient with patient Primary Urologist.Continue with iv antibiotics as per ID. CT head showed small amount of subarachnoid hemorrhage in the left frontal lobe 07/11/18. MRI brain showed small multifocal late acute / subacute cortical infarctions in the high frontal parietal and to a lesser extent occipital cortex. CTA head/neck were unremarkable. Neurology is following. Patient also has chronic thrombocytopenia which got worse due to underlying sepsis.Platelet count is improving. Doppler of right upper extremity showed Basilic and proximal Axiliiary vein DVT.Patient is anuradha risk for bleeding due to thrombocytopenia and H/O SAH as per hematology .This was discussed in detail with patient.Risk and benefot of anticoagulation was discussed.At this time we will not start anticoagulation due to high risk of bleeding. Elevated levated troponin, possible NSTEMI. Cardiology is following. Patient is not candidate for aspirin or anticoagulation secondary to SAH and thrombocytopenia. Echocardiogram showed systolic funditon severely impaired (EF 30%); global hypokinesis of the left ventricle. Overall prognosis is guarded. Management plan was discussed in detail with patient. Education was provided
[2018-07-18] MEDS ORDERED: Ergocalciferol 50,000 Intl Units Cap PO SCH (15:00)
--- NOTE | 2018-07-18 15:06 | PN ---
DATE: 07/18/2018 CARDIOLOGY FOLLOWUP The patient's was canceled given her multiple comorbidities. Currently, the patient is awake in bed. Her right arm is elevated. New right-sided upper extremity DVT is diagnosed. PHYSICAL EXAMINATION VITAL SIGNS: Stable. NECK: Negative JVD. LUNGS: Without rales. CARDIOVASCULAR: Heart rate S1, S2. EXTREMITIES: Without edema. LABORATORY DATA: The platelet counts have gone from 20-50 after transfusion. IMPRESSION: 1. Cerebrovascular accident. 2. Subarachnoid bleed. 3. Marked thrombocytopenia. 4. Deep venous thrombosis in the upper extremities. PLAN: Given these findings, a LESLY is contraindicated at this time given her multiple comorbidities. The question is independent of what the findings on LESLY are, whether Neurology feels it is safe to give anticoagulation or not. Carter Farmer MD
--- NOTE | 2018-07-18 16:00 | CP.PCM.PN ---
Subjective - Date & Time of Evaluation Date of Evaluation: 07/18/18 Time of Evaluation: 15:59 - Subjective Subjective: Nephrology Consultation Note: Assessment: stable CODY: improved HAGMA with lactic acidosis RUE DVT Hypokalemia GNR sepsis with shock diabetes Mellitus ( years), b/l kidney stones and recurrent UTIs, gastric bypass surgery, UV reflux, crohns disease, splenomegaly, pancytopenia hypophosphatemia, hypokalemia subarachnoid hemorrhage and acute CVA severe sys CHF LVEF 30% Plan No acute need for renal replacement therapy at this time. Maintain hemodynamics stable. Avoid hypotension. Patient not on ACEI/ARB due to shock Monitor Input/Output, daily weights and renal function with basic metabolic pane l supplement lytes as needed renal sono reviewed. ID, IR and urology involved check urine pro/cr and alb/cr legs compressive stockings added low dose lasix as tolerated by BP supplemented Ca, on Oscal D, weekly Vit D supplement lytes as needed Dose meds/antibiotics for improved GFR. Glycemic control Further work up/management as per primary team Thanks for allowing me to participate in care of your patient. Will follow patient with you. Please call if any Qs. had d/w team and family Dr Chad Jernigan Office: [phone] Reason for consult: acidosis and hypokalemia HPI: Pt is a 72 F with hx of diabetes Mellitus ( years), b/l kidney stones and recurrent UTIs, ileum bypass surgery, UV reflux, crohn's disease, splenomegaly, pancytopenia presented with complaints of fever and chhills, admitted to ICU with sepsis with shock requiring pressors and lactic acidosis. no knwon OTC/herbal meds or NSAIDs Noted recent iodinated contrast exposure. Noted obvious episodes of low BP. per , pt got sick for last couple of days ROS: pt alert awake. c/o Rt arm swelling. feels better Physical Examination: General Appearance: in no acute respiratory distress, better appearing Vitals reviewed and noted as below Head; Atraumatic, normocephalic ENT: no ulcers no thrush. Tongue is midline. Oropharynx: no rash or ulcers. EYES: Pupils are equal, round and reactive to light accommodation. Eye muscles and extraocular movement intact. Sclera is anicteric. Neck; supple no lymphadenopathy, no thyromegaly or bruit Lungs: Normal respiratory rate/effort. Breath sounds bilateral clearer Heart: normal rate. s1s2 normal. No rub or gallop. Extremities: 1-2+ edema. No varicose veins Neurological: Patient is awake but not much communicative Skin: Warm and dry. Normal turgor. No rash. Palpitation: Normal elasticity for age Abdomen: Abdomen is soft. Bowel sounds +. There is no abdominal tenderness, no guarding/rigidity no organomegaly Psych: normal mood MSK: no joint tenderness or swelling. Digits and nails normal, no deformity : kidney or bladder not palpable Labs/imaging reviewed. Past medical history, past surgical history, family history, social history, allergy reviewed and noted as below Family hx: no hx of CKD. Rest non-contributory Objective - Vital Signs/Intake and Output Vital Signs (last 24 hours): Temp Pulse Resp BP Pulse Ox 97.4 F L 71 20 104/61 99 07/18/18 08:48 07/18/18 14:00 07/18/18 08:48 07/18/18 10:00 07/18/18 08:48 Intake and Output: 07/18/18 07/18/18 06:59 18:59 Intake Total 290 Output Total 2400 Balance -2110 - Medications Medications: Current Medications Calcium/Vitamin D (Oscal-D 250 Mg-125 Units Tab) 1 tab PO BID [facility] Last Admin: 07/18/18 10:01 Dose: 1 tab Ergocalciferol (Drisdol 50,000 Intl Units Cap) 1 cap PO Q7D [facility] Furosemide (Lasix) 20 mg PO DAILY [facility] Last Admin: 07/18/18 10:00 Dose: 20 mg Guaifenesin (Robitussin) 100 mg PO Q4H PRN PRN Reason: Cough Last Admin: 07/15/18 00:35 Dose: 100 mg Micafungin Sodium 100 mg/ (Sodium Chloride) 100 mls @ 100 mls/hr IV DAILY [facility]; Protocol Stop: 07/22/18 11:01 Last Admin: 07/18/18 10:01 Dose: 100 mls/hr Meropenem (Merrem Iv 1 Gm Premix) 1 gm in 50 mls @ 100 mls/hr IVPB 0200,1000,1800 [facility]; Protocol Last Admin: 07/18/18 10:01 Dose: 100 mls/hr Insulin Human Regular (Humulin R High) 0 units SC ACHS [facility]; Protocol Last Admin: 07/18/18 13:31 Dose: 2 u Magnesium Oxide (Mag-Ox) 400 mg PO BID [facility] Midodrine (Proamatine) 10 mg PO TID [facility] Last Admin: 07/18/18 13:32 Dose: 10 mg Morphine Sulfate (Morphine) 2 mg IVP Q4H PRN PRN Reason: Pain, moderate (4-7) Last Admin: 07/18/18 00:56 Dose: 2 mg Multivitamins/Minerals (Therapeutic-M Tab) 1 tab PO 0800 [facility] Last Admin: 07/18/18 08:52 Dose: 1 tab Ondansetron HCl (Zofran Inj) 4 mg IVP Q6H PRN PRN Reason: Nausea/Vomiting Last Admin: 07/12/18 06:20 Dose: 4 mg Oxycodone/Acetaminophen (Percocet 5/325 Mg Tab) 1 tab PO Q4H PRN PRN Reason: Pain, moderate (4-7) Stop: 07/20/18 03:48 Last Admin: 07/17/18 22:22 Dose: 1 tab Pantoprazole Sodium (Protonix Ec Tab) 40 mg PO 0600 [facility] Last Admin: 07/18/18 05:51 Dose: 40 mg Potassium Chloride (K-Dur 20 Meq Er Tab) 20 meq PO BRK [facility] Potassium Phos/Sodium Phos (Neutra-Phos) 1 pkt PO TID [facility] Last Admin: 07/18/18 13:32 Dose: 1 pkt Prednisone (Prednisone Tab) 20 mg PO DAILY [facility] Last Admin: 07/18/18 10:02 Dose: 20 mg Pregabalin (Lyrica) 50 mg PO HS [facility] Last Admin: 07/17/18 21:20 Dose: 50 mg Psyllium Hydrophilic Mucilloid (Hydrocil Instant) 1 pkt PO BID [facility] Last Admin: 07/18/18 10:00 Dose: 1 pkt - Labs Labs: 07/18/18 06:00 07/18/18 06:00 PT 22.8 SECONDS (9.4-12.5) H 07/18/18 06:00 INR 1.96 07/18/18 06:00 APTT 26.5 Seconds (25.1-36.5) 07/18/18 06:00
--- NOTE | 2018-07-18 17:09 | CP.PCM.PN ---
Subjective - Date & Time of Evaluation Date of Evaluation: 07/18/18 Time of Evaluation: 08:40 - Subjective Subjective: Afebrile, not in distress. Objective - Vital Signs/Intake and Output Vital Signs (last 24 hours): Temp Pulse Resp BP Pulse Ox 98.7 F 81 18 106/55 L 96 07/16/18 20:00 07/16/18 22:00 07/16/18 18:56 07/17/18 09:47 07/16/18 17:00 - Medications Medications: Current Medications Calcium/Vitamin D (Oscal-D 250 Mg-125 Units Tab) 1 tab PO BID [facility] Last Admin: 07/17/18 09:49 Dose: 1 tab Furosemide (Lasix) 20 mg PO DAILY [facility] Last Admin: 07/17/18 09:47 Dose: 20 mg Guaifenesin (Robitussin) 100 mg PO Q4H PRN PRN Reason: Cough Last Admin: 07/15/18 00:35 Dose: 100 mg Micafungin Sodium 100 mg/ (Sodium Chloride) 100 mls @ 100 mls/hr IV DAILY [facility]; Protocol Stop: 07/22/18 11:01 Last Admin: 07/17/18 10:25 Dose: 100 mls/hr Meropenem (Merrem Iv 1 Gm Premix) 1 gm in 50 mls @ 100 mls/hr IVPB 0200,1000,1 800 [facility]; Protocol Last Admin: 07/17/18 09:48 Dose: 100 mls/hr Insulin Human Regular (Humulin R High) 0 units SC ACHS [facility]; Protocol Last Admin: 07/17/18 12:05 Dose: 7 u Midodrine (Proamatine) 10 mg PO TID [facility] Last Admin: 07/17/18 13:46 Dose: 10 mg Morphine Sulfate (Morphine) 2 mg IVP Q4H PRN PRN Reason: Pain, moderate (4-7) Last Admin: 07/17/18 03:35 Dose: 2 mg Multivitamins/Minerals (Therapeutic-M Tab) 1 tab PO 0800 [facility] Last Admin: 07/17/18 09:47 Dose: 1 tab Ondansetron HCl (Zofran Inj) 4 mg IVP Q6H PRN PRN Reason: Nausea/Vomiting Last Admin: 07/12/18 06:20 Dose: 4 mg Oxycodone/Acetaminophen (Percocet 5/325 Mg Tab) 1 tab PO Q4H PRN PRN Reason: Pain, moderate (4-7) Stop: 07/20/18 03:48 Pantoprazole Sodium (Protonix Ec Tab) 40 mg PO 0600 [facility] Last Admin: 07/17/18 06:29 Dose: 40 mg Potassium Phos/Sodium Phos (Neutra-Phos) 1 pkt PO TID [facility] Last Admin: 07/17/18 13:46 Dose: 1 pkt Prednisone (Prednisone Tab) 20 mg PO DAILY [facility] Pregabalin (Lyrica) 50 mg PO HS [facility] Last Admin: 07/16/18 21:57 Dose: 50 mg Psyllium Hydrophilic Mucilloid (Hydrocil Instant) 1 pkt PO BID [facility] Last Admin: 07/17/18 09:43 Dose: 1 pkt - Labs Labs: 07/17/18 05:31 07/17/18 05:31 PT 16.3 SECONDS (9.4-12.5) H 07/11/18 05:30 INR 1.41 07/11/18 05:30 APTT 24.2 Seconds (25.1-36.5) L 07/11/18 05:30 - Constitutional Appears: Chronically Ill - Head Exam Head Exam: NORMAL INSPECTION - Respiratory Exam Respiratory Exam: Decreased Breath Sounds - Cardiovascular Exam Cardiovascular Exam: +S1, +S2 - GI/Abdominal Exam GI & Abdominal Exam: Soft. absent: Tenderness Assessment and Plan - Assessment and Plan (Free Text) Plan: Assessment S/P septic shock with acute renal failure, toxic-metabolic encephalopathy, slowly improving (on top of small left frontal lobe subarachnoid hemorrhage as seen on head CT) due to E. coli bacteremia, consider due to pyelonephritis in this patient with history of nephrolithiasis and obstructive uropathy, but also grewE. faecalis and Proteus in the urine, R/O infected nephrolithiasis - other differential diagnosis is intra-abdominal infection but CT A/P does not show specific source of infection in the abdomen history of severe sepsis probably due to urinary tract infection in a patient with a history of nephrolithiasis S/P pigtail catheter placement history of right sided pyelonephritis associated with nephrolithiasis with E. faecalis Crohn's disease DM history of pyelonephritis bilateral nephrolithiasis S/P cholecystectomy S/P tubal ligation Plan continue Merrem (day 8 of - days); repeat urine cx is showing yeast which is probably colonization; repeat blood cx are negative; reviewed CT A/P showing multiple kidney stones and ureteral stents reviewed Urology evaluation - awaiting further plans for the kidney stone since these stones will keep her at risk for infections will continue to monitor clinically prognosis is guarded at best
[2018-07-18] MEDS: Potassium Chloride 20 mEq ER Tab PO SCH (17:31)
[2018-07-18] MEDS: Magnesium Oxide 400 mg Tab UD PO SCH (17:31)
--- NOTE | 2018-07-18 18:17 | CON ---
DATE: 07/18/2018 REASON FOR CONSULTATION: Pancytopenia as well as right axillary DVT. HISTORY OF PRESENT ILLNESS: The patient is a 72-year-old female, known to me from prior admissions as well as the office with known past medical history of pancytopenia which is unexplained. She also has a history of complex gastric bypass procedure done several years ago and has had multiple vitamin deficiencies including iron, B12, as well as multiple electrolyte deficiencies in the past. She was recently admitted to the [facility] with septic shock as well as lactic acidosis. Now post ICU evaluation, feels much better except for edema which is generalized. She denies any other complaints at this point, but also had a DVT study done which revealed a new axillary DVT. She has had a bone marrow done in the past as an outpatient which did not reveal any pathology. She also has known UV reflux, Crohn's disease, splenomegaly, as well as hypophosphatemia and hypokalemia. The patient's daughter states she also broke her hip earlier this year and has been in hospital several times. She is not able to eat much at home. Denies any other complaints. PAST MEDICAL HISTORY: As above. Known history of gastric bypass, diabetes, bilateral renal stones, recurrent UTIs, Crohn's disease, splenomegaly, pancytopenia. MEDICATIONS: Include Merrem, vasopressin which has been discontinued. ALLERGIES: NO KNOWN DRUG ALLERGIES. SOCIAL HISTORY: Noncontributory. She is a nonsmoker. No alcohol use, no drug use. FAMILY HISTORY: Noncontributory. REVIEW OF SYSTEMS: As per the HPI. PHYSICAL EXAMINATION GENERAL: The patient is an elderly, cachectic-appearing female with edematous upper and lower extremities as well as ascitic abdomen. VITAL SIGNS: Reveal a temperature of 97.4, pulse of 71, respiratory rate of 20, and blood pressure of 104/61. HEENT: There is pallor noted, but no icterus is noted. NECK: Supple with no adenopathy. No JVD, no thyromegaly. LUNGS: Decreased breath sounds bilaterally. CARDIOVASCULAR: S1, S2 is heard. ABDOMEN: Positive bowel sounds, soft, nontender, nondistended. No organomegaly is palpated. EXTREMITIES: There is bilateral upper and lower extremity edema. LABORATORY DATA: Her labs revealed white count of 4.7, hemoglobin 9.2, hematocrit of 27.5, MCV of 93.5, and platelet count of 56,000, which has considerably improved since admission when it was 34,000. She has received some platelet transfusions in the ICU. Manual platelet count today is 75,000. White count diff is left shifted. DIAGNOSTIC DATA: Her CT of the abdomen and pelvis which was done on this admission, there is a large renal pelvic stone measuring 2.4 x 3.2. There are also multiple other stones with the ureteral stent, but there is no other pathology noted. Right axillary DVT is also noted. ASSESSMENT AND PLAN: Elderly female with pancytopenia, ongoing for several years with no obvious bone marrow pathology. She does have hepatosplenomegaly which could be contributing to her pancytopenia. Also, known history of gastric bypass and multiple vitamin deficiencies as well as electrolyte deficiencies, now admitted with sepsis. Continue management as per ID. She also had a subarachnoid bleed on this admission. Considering her low platelet count as well as recent bleed, we would not anticoagulate for the DVT at this point. Continue current management. No further recommendations from a hematology point of view. Thank you for the consult. We will follow. Raffy Wynn MD (Delete this signature block when dictator is a preceptor.) cc: MD Blane (Delete if not dictated.)
[2018-07-19] MEDS: Morphine 2 mg/ml ISec IVP PRN (02:25)
[2018-07-19] MEDS: Meropenem IV 1 gm in NS 1 GM/50 ML BAG IVPB SCH ×3 (02:27→17:14)
[2018-07-19] MEDS: Pantoprazole 40 mg EC Tab PO SCH (05:52)
[2018-07-19 07:00] LABS: BASO # 0.02 K/mm3 (0.0-2.0); BASO % 0.4 % (0.0-3.0); EOS % 0.4 % (1.5-5.0); GRAN # 3.41 (1.4-6.5); GRAN % 71.9 % (50.0-68.0); HEMOGLOBIN 9.4 g/dL (12.0-16.0); LYMPH % 20.4 % (22.0-35.0); MEAN CELL VOLUME 94.8 fl (80.0-105.0); MEAN CORPUSCULAR HEMOGLOBIN 30.7 pg (25.0-35.0); MEAN CORPUSCULAR HGB CONC 32.4 g/dl (31.0-37.0); MEAN PLATELET VOLUME 12.4 fl (7.0-11.0); MONO # 0.3 (0.1-0.6); MONO % 6.9 % (1.0-6.0); RBC 3.06 10^6/uL (3.5-6.1); RED CELL DISTRIBUTION WIDTH 14.2 % (11.5-14.5); WHITE BLOOD COUNT 4.8 10^3/uL (4.5-11.0)
[2018-07-19 07:24] LABS: ALB/GLOB RATIO 0.8 (1.1-1.8); ALT/SGPT 63 U/L (7-56); AST/SGOT 64 U/L (14-36); BLOOD UREA NITROGEN 18 mg/dL (7-21); CALCIUM 5.7 mg/dL (8.4-10.5); GFR NON-AFRICAN AMERICAN > 60
[2018-07-19] MEDS: Insulin Reg-HIGH-Coverage SC SCH ×4 (08:21→22:18)
[2018-07-19] MEDS ORDERED: Potassium Chloride 20 mEq ER Tab PO STA (08:31)
[2018-07-19] MEDS: Magnesium Oxide 400 mg Tab UD PO SCH ×2 (09:21→17:13)
[2018-07-19] MEDS: Potassium & Sodium Phosphate PO SCH ×3 (09:21→17:14)
[2018-07-19] MEDS: Psyllium Packet PO SCH ×2 (09:21→17:14)
[2018-07-19] MEDS: Multivitamin With Minerals Tab PO SCH (09:30)
[2018-07-19] MEDS: Calcium-Vit D 250 mg-125 Units Tab UD PO SCH ×2 (09:33→17:14)
[2018-07-19 10:36] LABS: INR 1.91; PROTHROMBIN TIME 22.3 SECONDS (9.4-12.5)
[2018-07-19] MEDS: Potassium Chloride 20 mEq ER Tab PO SCH (10:46)
--- NOTE | 2018-07-19 12:34 | CP.PCM.PN ---
<Sivakumar Vázquez - Last Filed: 07/19/18 14:54> Subjective - Date & Time of Evaluation Date of Evaluation: 07/19/18 Time of Evaluation: 07:00 - Subjective Subjective: Sivakumar Vázquez PGY1 Medicine Progress Note for Dr. Knutson Patient was seen and examined at bedside this morning. Patient still complains of low back pain. She was complaining of her diet. Otherwise, she denies cp, sob, abdominal pain, n/v/d. Patient's mental status is AAOx3. Vital signs are stable. No adverse overnight events. After interview, patient was seen getting a midline. A full 12 point ROS was conducted and unremarkable except as stated above. Objective - Vital Signs/Intake and Output Vital Signs (last 24 hours): Temp Pulse Resp BP Pulse Ox 97.9 F 65 18 122/68 96 07/19/18 08:47 07/19/18 08:47 07/19/18 08:47 07/19/18 09:22 07/19/18 08:47 Intake and Output: 07/19/18 07/19/18 06:59 18:59 Intake Total 480 Output Total 1200 Balance -720 - Medications Medications: Current Medications Alprazolam (Xanax) 0.25 mg PO HS PRN; Protocol PRN Reason: Sleep Stop: 07/26/18 11:40 Calcium/Vitamin D (Oscal-D 250 Mg-125 Units Tab) 1 tab PO BID [facility] Last Admin: 07/19/18 09:33 Dose: 1 tab Ergocalciferol (Drisdol 50,000 Intl Units Cap) 1 cap PO Q7D [facility] Last Admin: 07/18/18 17:30 Dose: 1 cap Furosemide (Lasix) 20 mg PO DAILY [facility] Last Admin: 07/19/18 09:22 Dose: 20 mg Guaifenesin (Robitussin) 100 mg PO Q4H PRN PRN Reason: Cough Last Admin: 07/15/18 00:35 Dose: 100 mg Meropenem (Merrem Iv 1 Gm Premix) 1 gm in 50 mls @ 100 mls/hr IVPB 0200,1000,1800 [facility]; Protocol Last Admin: 07/19/18 09:21 Dose: 100 mls/hr Insulin Human Regular (Humulin R High) 0 units SC ACHS [facility]; Protocol Last Admin: 07/19/18 11:48 Dose: 2 u Magnesium Oxide (Mag-Ox) 400 mg PO BID [facility] Last Admin: 07/19/18 09:21 Dose: 400 mg Midodrine (Proamatine) 10 mg PO TID [facility] Last Admin: 07/19/18 09:21 Dose: 10 mg Multivitamins/Minerals (Therapeutic-M Tab) 1 tab PO 0800 [facility] Last Admin: 07/19/18 09:30 Dose: 1 tab Ondansetron HCl (Zofran Inj) 4 mg IVP Q6H PRN PRN Reason: Nausea/Vomiting Last Admin: 07/12/18 06:20 Dose: 4 mg Oxycodone/Acetaminophen (Percocet 5/325 Mg Tab) 1 tab PO Q4H PRN PRN Reason: Pain, moderate (4-7) Stop: 07/20/18 03:48 Last Admin: 07/17/18 22:22 Dose: 1 tab Pantoprazole Sodium (Protonix Ec Tab) 40 mg PO 0600 [facility] Last Admin: 07/19/18 05:52 Dose: 40 mg Potassium Chloride (K-Dur 20 Meq Er Tab) 20 meq PO BRK [facility] Last Admin: 07/19/18 10:46 Dose: Not Given Potassium Phos/Sodium Phos (Neutra-Phos) 1 pkt PO TID [facility] Last Admin: 07/19/18 09:21 Dose: 1 pkt Prednisone (Prednisone Tab) 20 mg PO DAILY [facility] Last Admin: 07/19/18 09:21 Dose: 20 mg Pregabalin (Lyrica) 50 mg PO HS [facility] Last Admin: 07/18/18 22:42 Dose: 50 mg Psyllium Hydrophilic Mucilloid (Hydrocil Instant) 1 pkt PO BID [facility] Last Admin: 07/19/18 09:21 Dose: 1 pkt - Labs Labs: 07/19/18 06:00 07/19/18 06:00 PT 22.3 SECONDS (9.4-12.5) H 07/19/18 10:20 INR 1.91 07/19/18 10:20 APTT 26.5 Seconds (25.1-36.5) 07/18/18 06:00 - Constitutional Appears: No Acute Distress - Head Exam Head Exam: ATRAUMATIC, NORMAL INSPECTION, NORMOCEPHALIC - Eye Exam Eye Exam: EOMI, Normal appearance, PERRL Pupil Exam: NORMAL ACCOMODATION, PERRL - ENT Exam ENT Exam: Mucous Membranes Moist, Normal Exam - Neck Exam Neck Exam: Full ROM, Normal Inspection. absent: Lymphadenopathy - Respiratory Exam Respiratory Exam: Clear to Ausculation Bilateral, NORMAL BREATHING PATTERN. absent: Rales, Rhonchi, Wheezes - Cardiovascular Exam Cardiovascular Exam: REGULAR RHYTHM, +S1, +S2. absent: Murmur - GI/Abdominal Exam GI & Abdominal Exam: Soft, Normal Bowel Sounds. absent: Tenderness - Extremities Exam Extremities Exam: absent: Pedal Edema, Tenderness Additional comments: Right upper and lower extremity weakness. - Neurological Exam Neurological Exam: Alert, Awake, Oriented x3 - Skin Skin Exam: Dry, Intact, Normal Color, Warm Assessment and Plan - Assessment and Plan (Free Text) Assessment: Patient is a 72 y/o F with PMHx of recurrent nephrolithiasis, recurrent UTIs, ureterovesicular reflux, DM2, Crohn's disease, h/o subdural hematoma brought in by EMS to [facility] with complaints of fever/chills/diarrhea x 2days. Patient was admitted to ICU for AMS due to E. Coli Bacteremia in the setting of septic shock 2/2 Uropesis with recurrent nephrolithiasis. Patient was also found to have Acute cortical infarcts with stable subarachnoid hemorrhage. She also presented with NSTEMI and thrombocytopenia. Plan: AMS due to E. Coli Bacteremia in the setting of Septic Shock 2/2 Urosepsis with Hx of recurrent nephrolithiasis - improved - Urology wants to d/c wiggins catheter and have patient follow up in [place] - remove R-IJ central line today - c/w merrem. Discuss with ID about switching to PO antibiotics. - At baseline mental status - c/w midodrine - c/w prednisone 20mg - repeat urine cx +yeast; c/w Mycamine as per ID - Leukocytosis improved - Blood cx grew E. Coli - Urine cx grew Proteus mirabilis and enterococcus faecalis - Echo: EF 30%. Global hypoknesis of the left ventricle. No thrombus noted. - Abdomen/Pelvis CT (07/12): large stone in the R-renal pelvis measuring 24x32 mm. There are 3 separate 5 mm stones in the right distal ureter adjacent to the ureteral stent. There is a left ureteral stent. There is a 10 mm stone within within proximal pigtail. There is a 14 mm nonobstructing stone in the lower pole of the L-kidney. Acute/subacute cortical infarctions in the frontal, parietal, and occipital cortex with stable subarachnoid Hemorrhage - Neuro recommends appreciated: LESLY and PT/ST/OT - MRI (07/14): small multifocal late acute/subacute cortical infarctions in the high frontal parietal and to a lesser extent occipital cortex. - Head CT (07/11): 1.5 cm subarachnoid hemorrhage in the left frontal lobe - Head/Neck CTA (07/12): unremarkable. Chronic Thrombocytopenia worsened due to underlying sepsis - Platelet count is 69, improving. Heme recs: at this time, no anticoagulation for DVT is recommended. - Discussed with patient that she cannot be on blood thinners due to recent stroke. Patient verbalized understanding. - Right upper extremity Ultrasound: thrombus at the right axillary vein and proximal right basilic vein. - Patient has a hx of chronic thrombocytopenia NSTEMI - elevated troponins likely secondary to stroke - Cardio consulted. Recs appreciated. - Elevated troponin at 1.12 - likely due to new finding of stroke Electrolyte Abnormalities due to Sepsis (Hypocalcemia, Hypomagnesemia, Hypophosphatemia) - Corrected calcium is 8.26; repleted - Mg and Phos; replete as needed - Nephro recs appreciated DVT ppx: SCD GI ppx: PTX Dispo: Patient is pending approval from [facility] in [place]. Patient may follow up with urology as outpatient. Case was discussed and reviewed with Attending Physician, Dr. Knutson. <Dianne Knutson - Last Filed: 07/19/18 17:11> Objective - Vital Signs/Intake and Output Vital Signs (last 24 hours): Temp Pulse Resp BP Pulse Ox 98.6 F 55 L 19 118/58 L 95 07/19/18 17:00 07/19/18 17:00 07/19/18 17:00 07/19/18 17:00 07/19/18 17:00 Intake and Output: 07/19/18 07/19/18 06:59 18:59 Intake Total 480 Output Total 1200 Balance -720 - Medications Medications: Current Medications Alprazolam (Xanax) 0.25 mg PO HS PRN; Protocol PRN Reason: Sleep Stop: 07/26/18 11:40 Aspirin (Ecotrin) 81 mg PO DAILY [facility] Calcium/Vitamin D (Oscal-D 250 Mg-125 Units Tab) 2 tab PO BID [facility] Ergocalciferol (Drisdol 50,000 Intl Units Cap) 1 cap PO Q7D [facility] Last Admin: 07/18/18 17:30 Dose: 1 cap Furosemide (Lasix) 20 mg PO DAILY [facility] Last Admin: 07/19/18 09:22 Dose: 20 mg Guaifenesin (Robitussin) 100 mg PO Q4H PRN PRN Reason: Cough Last Admin: 07/15/18 00:35 Dose: 100 mg Meropenem (Merrem Iv 1 Gm Premix) 1 gm in 50 mls @ 100 mls/hr IVPB 0200,1000,1800 [facility]; Protocol Last Admin: 07/19/18 09:21 Dose: 100 mls/hr Insulin Human Regular (Humulin R High) 0 units SC ACHS [facility]; Protocol Last Admin: 07/19/18 11:48 Dose: 2 u Lisinopril (Zestril) 5 mg PO DAILY [facility] Magnesium Oxide (Mag-Ox) 400 mg PO BID [facility] Last Admin: 07/19/18 09:21 Dose: 400 mg Midodrine (Proamatine) 10 mg PO TID [facility] Last Admin: 07/19/18 13:32 Dose: 10 mg Multivitamins/Minerals (Therapeutic-M Tab) 1 tab PO 0800 [facility] Last Admin: 07/19/18 09:30 Dose: 1 tab Ondansetron HCl (Zofran Inj) 4 mg IVP Q6H PRN PRN Reason: Nausea/Vomiting Last Admin: 07/12/18 06:20 Dose: 4 mg Oxycodone/Acetaminophen (Percocet 5/325 Mg Tab) 1 tab PO Q4H PRN PRN Reason: Pain, moderate (4-7) Stop: 07/20/18 03:48 Last Admin: 07/17/18 22:22 Dose: 1 tab Pantoprazole Sodium (Protonix Ec Tab) 40 mg PO 0600 [facility] Last Admin: 07/19/18 05:52 Dose: 40 mg Potassium Chloride (K-Dur 20 Meq Er Tab) 20 meq PO BRK [facility] Last Admin: 07/19/18 10:46 Dose: Not Given Potassium Phos/Sodium Phos (Neutra-Phos) 1 pkt PO TID [facility] Last Admin: 07/19/18 13:32 Dose: 1 pkt Prednisone (Prednisone Tab) 20 mg PO DAILY [facility] Last Admin: 07/19/18 09:21 Dose: 20 mg Pregabalin (Lyrica) 50 mg PO HS [facility] Last Admin: 07/18/18 22:42 Dose: 50 mg Psyllium Hydrophilic Mucilloid (Hydrocil Instant) 1 pkt PO BID [facility] Last Admin: 07/19/18 09:21 Dose: 1 pkt - Labs Labs: 07/19/18 06:00 07/19/18 06:00 PT 22.3 SECONDS (9.4-12.5) H 07/19/18 10:20 INR 1.91 07/19/18 10:20 APTT 26.5 Seconds (25.1-36.5) 07/18/18 06:00 Attending/Attestation - Attestation I have personally seen and examined this patient.: Yes I have fully participated in the care of the patient.: Yes I have reviewed all pertinent clinical information, including history, physical exam and plan: Yes Notes (Text): 07/19/18 17:04 Patient was seen and examined with medical asst. 72 year old female with past medical history of UTI, nephrolithiasis, diabetes, and Sub dural hematoma wAS ADMITTED WITH septic shock secondary to gram negative bacteremia and UTI . Blood culture grew E Coli x 2 and UCx is growing Proteus Mirabilis and Enterobacter Faecalis. Repeat UCx grew yeast species likely colonization. CT abd/pelvis showed large stone (24x32 mm) in the right renal pelvis and 3 separate 5 mm stones in the right distal ureter adjacent to the ureteral stent; left ureteral stent with 10 mm stone within proximal pigtail; no hydronephrosis. Renal ultrasound showed bilateral proximal ureteral stones, larger on right; and small bilateral non-obstructing stones. Urology is following; plan urological intervention once patient is more stable as out patient with patient Primary Urologist..Patient will need 2 weeks of IV antibiotics as per ID.Mid line was placed today. CT head showed small amount of subarachnoid hemorrhage in the left frontal lobe 07/11/18. MRI brain showed small multifocal late acute / subacute cortical infarctions in the high frontal parietal and to a lesser extent occipital cortex. CTA head/neck were unremarkable. Patient also has chronic thrombocytopenia which got worse due to underlying sepsis.Platelet count is improving .Doppler of right upper extremity showed Basilic and proximal Axiliiary vein DVT.Patient is anuradha risk for bleeding due to thrombocytopenia and H/O SAH as per hematology .This was discussed in detail with patient.Risk and benefot of anticoagulation was discussed. At this time we will not start antic oagulation due to high risk of bleeding. Elevated levated troponin, possible NSTEMI. Cardiology is following. . Echocardiogram showed systolic funditon severely impaired (EF 30%); global hypokinesis of the left ventricle. Repeat CT head today showed improving SAH. As platelet count is improving, can start Aspirin if OK with Neurology. Case Management is working on disposition. Prognosis is guarded. 07/19/18 17:06
--- NOTE | 2018-07-19 13:07 | PN ---
DATE: 07/19/2018 SUBJECTIVE: The patient is comfortable. She is hungry today. PHYSICAL EXAMINATION: VITAL SIGNS: On physical exam, blood pressure 122/68, heart rate in the 60s. NECK: Negative JVD. LUNGS: Without rales. HEART: Reveal S1, S2. EXTREMITIES: Without edema. LABORATORY DATA: The platelet count is up to 69,000, hemoglobin is 9.4. Chemistries, BUN and creatinine unremarkable. IMPRESSION: 1. Cerebrovascular accident. 2. Subarachnoid bleed. 3. Thrombocytopenia which is improving. 4. Venous thrombosis in the right upper extremity. Given these findings, the patient remains hemodynamically stable. The patient is hungry and requesting advancement in her diet. Carter Farmer MD
--- NOTE | 2018-07-19 13:41 | CT ---
Date of service: 07/19/2018 PROCEDURE: CT HEAD WITHOUT CONTRAST. HISTORY: monitor progression of SAH COMPARISON: Head CT 07/11/2018 and Brain MRI 07/14/2018. TECHNIQUE: Axial computed tomography images were obtained through the head/brain without intravenous contrast. Radiation dose: Total exam DLP = 897.0 mGy-cm. This CT exam was performed using one or more of the following dose reduction techniques: Automated exposure control, adjustment of the mA and/or kV according to patient size, and/or use of iterative reconstruction technique. FINDINGS: HEMORRHAGE: Trace left frontal subarachnoid hemorrhage is diminishing in density with no acute hemorrhage appreciable intracranially at this time. BRAIN: Cytotoxic edema is identified at a small segment of the the inferolateral right occipital lobe compatible with likely subacute infarction though acute infarction is not completely excluded at this time. No significant mass effect is identified. Similar infarction is appreciated at the posteromedial left frontal lobe at the midline. Pattern reflects progression of embolic infarction in left anterior cerebral artery and right posterior artery distributions. No additional parenchymal edema is identified. Diffuse cerebral atrophy is reiterated. Posterior fossa contents are stable. No midline shift. VENTRICLES: Unremarkable. No hydrocephalus. CALVARIUM: Unremarkable. PARANASAL SINUSES: Unremarkable as visualized. No significant inflammatory changes. MASTOID AIR CELLS: Unremarkable as visualized. No inflammatory changes. OTHER FINDINGS: None. IMPRESSION: 1. Diminishing left frontal subarachnoid hemorrhage. No definite new intracranial hemorrhage appreciable. 2. Small lobar infarctions are identified at the left frontal and right occipital lobes history reflecting infarct in evolution minimally demonstrated in prior MRI brain 07/14/2018. 3. Reiterated limited age-related neuro degenerative findings. Findings discussed with Dr. Edilberto Vanegas with written down and read back verification 07/19/2018 1:31 p.m..
--- NOTE | 2018-07-19 14:00 | PCM.STROKE ---
<Vanegas,Cliff - Last Filed: 07/19/18 14:33> Interval History - Treatment DVT Prophylaxis: Sequential compression device in place bilaterally - Education Written Stroke Education provided regarding: personal risk factors, stroke warning sign/symptoms, how to activate emergency medical services, need to follow up after discharge NIHSS Stroke Scale - Date/Time Evaluation Performed Date Performed: 07/12/18 Time Performed: 20:00 - How Severe is the Stroke Level of Consciousness: 0=Alert LOC to Questions: 0=Both comments correct LOC to commands: 0=Obeys both correctly Best Gaze: 0=Normal Visual: 0=No visual loss Facial: 0=Normal Motor Arm - Left: 0=No drift Motor Arm - Right: 3=No effort against gravity (falls immediately) Motor Leg - Left: 0=No drift Motor Leg - Right: 3=No effort against gravity (falls immediately) Limb Ataxia: 0=Absent Sensory: 0=Normal Best Language: 0=No aphasia Dysarthia: 0=Normal articulation Extinction & Inattention (Neglect): 0=Normal, no object Score: 6 Exam - Vital Sign Vital Signs: Temp Pulse Resp BP Pulse Ox 97.9 F 65 18 122/68 96 07/19/18 08:47 07/19/18 08:47 07/19/18 08:47 07/19/18 09:22 07/19/18 08:47 Constitutional: No distress, Normal appearing Right Pupil: Reactive Left Pupil: Reactive Cardiovascular: Regular rate & rhythm Mental Status: Normal: Orientation, Memory, Attention, Language Cranial Nerve: Normal: Visual Parrish, Extraocular movement intact Neuro motor strength exam: Left Upper Extremity: 5, Right Upper Extremity: 2/1, Left Lower Extremity: 5, Right Lower Extremity: 2/1 Vascular Risk: Diabetes Mellitus - Data reviewed Laboratory results: 07/19/18 06:00 07/19/18 06:00 Triglycerides 119 mg/dL (35-160) 07/13/18 05:00 Cholesterol 66 mg/dL (130-200) L 07/13/18 05:00 LDL Cholesterol Direct < 30 mg/dL (0-129) 07/13/18 05:00 HDL Cholesterol 30 mg/dL (29-60) 07/13/18 05:00 Assessment and Plan - Assessment and Plan (Free Text) Plan: Assessment and Plan: Patient is a 72 year old female with PMHx of recurrent nephrolithiasis, recurrent UTIs, ureterovesicular reflux, DM2, Crohn's disease, h/o subdural hematoma brought in by EMS for evaluation and treatment of fever/chills/diarrhea x 2days. Neurology team was consulted for management of subarachnoid hemorrhage found on imaging. SAH - 07/11/[address] without Contrast - Small amount of subarachnoid hemorrhage in the left frontal lobe. - 07/12/2018 CTA head and neck- Calcified intra cavernous segments of the internal carotid arteries - 07/14/2018 Brain MRI without contrast- small multifocal late acute/subacute cortical infarctions in the high frontal, parietal and to a lesser extent occipital cortex. Redemonstration of small left frontal subarachnoid hemorrhage - 07/19/2018 CT head without contrast- 1. Diminishing left frontal subarachnoid hemorrhage. No definite new intracranial hemorrhage appreciable. 2. Small lobar infarctions are identified at the left frontal and right occipital lobes history reflecting infarct in evolution minimally demonstrated in prior MRI brain 07/14/2018. 3. Reiterated limited age-related neuro degenerative findings - LESLY ordered and pending- scheduled for 07/17/[address] Hutchinson- will follow up on ensuring completion - started on aspirin 81mg PO daily - continue aggressive PT, OT, ST Patient seen, case discussed with, and plan approved by attending physician, Dr. Fuchs. <Reji Fuchs - Last Filed: 07/19/18 17:39> Interval History - Education Written Stroke Education provided regarding: personal risk factors, stroke warning sign/symptoms, how to activate emergency medical services, need to follow up after discharge Exam - Vital Sign Vital Signs: Temp Pulse Resp BP Pulse Ox 98.6 F 55 L 19 118/58 L 95 07/19/18 17:00 07/19/18 17:00 07/19/18 17:00 07/19/18 17:00 07/19/18 17:00 - Data reviewed Laboratory results: 07/19/18 06:00 07/19/18 06:00 Triglycerides 119 mg/dL (35-160) 07/13/18 05:00 Cholesterol 66 mg/dL (130-200) L 07/13/18 05:00 LDL Cholesterol Direct < 30 mg/dL (0-129) 07/13/18 05:00 HDL Cholesterol 30 mg/dL (29-60) 07/13/18 05:00 Attending/Attestation - Attestation I have personally seen and examined this patient.: Yes I have fully participated in the care of the patient.: Yes I have reviewed all pertinent clinical information, including history, physical exam and plan: Yes Notes (Text): 07/19/18 17:38 I agree with the assessment and plan. The patient is improving with movement of the right side. Will continue PT/OT. If repeat non-contrast CT head is stable with decreased SAH, will start aspirin 81 mg daily for secondary stroke prevention.
--- NOTE | 2018-07-19 15:12 | CP.PCM.PN ---
Subjective - Date & Time of Evaluation Date of Evaluation: 07/19/18 Time of Evaluation: 15:11 - Subjective Subjective: Nephrology Consultation Note: Assessment: stable CODY: improved HAGMA with lactic acidosis RUE DVT Hypokalemia GNR sepsis with shock diabetes Mellitus ( years), b/l kidney stones and recurrent UTIs, gastric bypass surgery, UV reflux, crohns disease, splenomegaly, pancytopenia hypophosphatemia, hypokalemia subarachnoid hemorrhage and acute CVA severe sys CHF LVEF 30% Plan No acute need for renal replacement therapy at this time. Maintain hemodynamics stable. Avoid hypotension. Patient not on ACEI/ARB. will add low dose in view of CHF Monitor Input/Output, daily weights and renal function with basic metabolic panel supplement lytes as needed renal sono reviewed. ID, IR and urology involved check urine pro/cr and alb/cr legs compressive stockings added low dose lasix as tolerated by BP supplemented Ca, on Oscal D, weekly Vit D supplement lytes as needed Dose meds/antibiotics for improved GFR. Glycemic control Further work up/management as per primary team Thanks for allowing me to participate in care of your patient. Will follow patient with you. Please call if any Qs. had d/w team and family Dr Chad Jernigan Office: [phone] Reason for consult: acidosis and hypokalemia HPI: Pt is a 72 F with hx of diabetes Mellitus ( years), b/l kidney stones and recurrent UTIs, ileum bypass surgery, UV reflux, crohn's disease, splenomegaly, pancytopenia presented with complaints of fever and chhills, admitted to ICU with sepsis with shock requiring pressors and lactic acidosis. no knwon OTC/herbal meds or NSAIDs Noted recent iodinated contrast exposure. Noted obvious episodes of low BP. per , pt got sick for last couple of days ROS: pt alert awake. c/o Rt arm swelling. feels better Physical Examination: General Appearance: in no acute respiratory distress, better appearing Vitals reviewed and noted as below Head; Atraumatic, normocephalic ENT: no ulcers no thrush. Tongue is midline. Oropharynx: no rash or ulcers. EYES: Pupils are equal, round and reactive to light accommodation. Eye muscles and extraocular movement intact. Sclera is anicteric. Neck; supple no lymphadenopathy, no thyromegaly or bruit Lungs: Normal respiratory rate/effort. Breath sounds bilateral clearer Heart: normal rate. s1s2 normal. No rub or gallop. Extremities: trace edema. No varicose veins Neurological: Patient is awake but not much communicative Skin: Warm and dry. Normal turgor. No rash. Palpitation: Normal elasticity for age Abdomen: Abdomen is soft. Bowel sounds +. There is no abdominal tenderness, no guarding/rigidity no organomegaly Psych: normal mood MSK: no joint tenderness or swelling. Digits and nails normal, no deformity : kidney or bladder not palpable Labs/imaging reviewed. Past medical history, past surgical history, family history, social history, allergy reviewed and noted as below Family hx: no hx of CKD. Rest non-contributory Objective - Vital Signs/Intake and Output Vital Signs (last 24 hours): Temp Pulse Resp BP Pulse Ox 97.9 F 65 18 122/68 96 07/19/18 08:47 07/19/18 08:47 07/19/18 08:47 07/19/18 09:22 07/19/18 08:47 Intake and Output: 07/19/18 07/19/18 06:59 18:59 Intake Total 480 Output Total 1200 Balance -720 - Medications Medications: Current Medications Alprazolam (Xanax) 0.25 mg PO HS PRN; Protocol PRN Reason: Sleep Stop: 07/26/18 11:40 Aspirin (Ecotrin) 81 mg PO DAILY [facility] Calcium/Vitamin D (Oscal-D 250 Mg-125 Units Tab) 2 tab PO BID [facility] Ergocalciferol (Drisdol 50,000 Intl Units Cap) 1 cap PO Q7D [facility] Last Admin: 07/18/18 17:30 Dose: 1 cap Furosemide (Lasix) 20 mg PO DAILY [facility] Last Admin: 07/19/18 09:22 Dose: 20 mg Guaifenesin (Robitussin) 100 mg PO Q4H PRN PRN Reason: Cough Last Admin: 07/15/18 00:35 Dose: 100 mg Meropenem (Merrem Iv 1 Gm Premix) 1 gm in 50 mls @ 100 mls/hr IVPB 0200,1000,1800 [facility]; Protocol Last Admin: 07/19/18 09:21 Dose: 100 mls/hr Insulin Human Regular (Humulin R High) 0 units SC [facility]; Protocol Last Admin: 07/19/18 11:48 Dose: 2 u Magnesium Oxide (Mag-Ox) 400 mg PO BID [facility] Last Admin: 07/19/18 09:21 Dose: 400 mg Midodrine (Proamatine) 10 mg PO TID [facility] Last Admin: 07/19/18 13:32 Dose: 10 mg Multivitamins/Minerals (Therapeutic-M Tab) 1 tab PO 0800 [facility] Last Admin: 07/19/18 09:30 Dose: 1 tab Ondansetron HCl (Zofran Inj) 4 mg IVP Q6H PRN PRN Reason: Nausea/Vomiting Last Admin: 07/12/18 06:20 Dose: 4 mg Oxycodone/Acetaminophen (Percocet 5/325 Mg Tab) 1 tab PO Q4H PRN PRN Reason: Pain, moderate (4-7) Stop: 07/20/18 03:48 Last Admin: 07/17/18 22:22 Dose: 1 tab Pantoprazole Sodium (Protonix Ec Tab) 40 mg PO 0600 [facility] Last Admin: 07/19/18 05:52 Dose: 40 mg Potassium Chloride (K-Dur 20 Meq Er Tab) 20 meq PO BRK [facility] Last Admin: 07/19/18 10:46 Dose: Not Given Potassium Phos/Sodium Phos (Neutra-Phos) 1 pkt PO TID [facility] Last Admin: 07/19/18 13:32 Dose: 1 pkt Prednisone (Prednisone Tab) 20 mg PO DAILY [facility] Last Admin: 07/19/18 09:21 Dose: 20 mg Pregabalin (Lyrica) 50 mg PO HS [facility] Last Admin: 07/18/18 22:42 Dose: 50 mg Psyllium Hydrophilic Mucilloid (Hydrocil Instant) 1 pkt PO BID [facility] Last Admin: 07/19/18 09:21 Dose: 1 pkt - Labs Labs: 07/19/18 06:00 07/19/18 06:00 PT 22.3 SECONDS (9.4-12.5) H 07/19/18 10:20 INR 1.91 07/19/18 10:20 APTT 26.5 Seconds (25.1-36.5) 07/18/18 06:00
--- NOTE | 2018-07-19 21:57 | PN ---
DATE: 07/19/2018 SUBJECTIVE: Patient is seen in bed, no acute distress, and nontoxic. OBJECTIVE: VITAL SIGNS: Temperature is 98, blood pressure is 118/50, and respiratory rate of 18. HEENT: Unremarkable. NECK: Supple. LUNGS: Decreased breath sounds. HEART: Normal S1 and S2. ABDOMEN: Soft and nontender. LABORATORY DATA: Reveals a white count of 4.8, hemoglobin of 9, BUN of 18, and creatinine of 0.8. Urinalysis is noted. Toxicology is noted. Influenza is negative. Microbiology is noted. E. coli in blood. Enterococcus and Proteus in the urine. Repeat urine culture has yeast. ASSESSMENT AND PLAN: This is a 72-year-old female with status post septic shock, acute renal failure, toxic metabolic encephalopathy improving on top of small left frontal lobe subarachnoid hemorrhage seen on CAT scan with Escherichia coli bacteremia, pyelonephritis, nephrolithiasis, and obstructive uropathy. The patient has a long history of pyelonephritis, nephrolithiasis, Crohn's disease, and diabetes. Day #9 of meropenem with complete 10 to 14 days. Repeat yeast cultures probably a colonizer, not requiring treatment. We will follow with you. Rony Garcia MD
[2018-07-20] MEDS: Oxycodone/Acetaminophen 5/325 mg Tab PO PRN (00:35)
[2018-07-20] MEDS: Meropenem IV 1 gm in NS 1 GM/50 ML BAG IVPB SCH ×2 (01:51→13:59)
[2018-07-20] MEDS: Pantoprazole 40 mg EC Tab PO SCH (06:10)
[2018-07-20 06:22] LABS: HEMOGLOBIN 10.2 g/dL (12.0-16.0); MEAN CELL VOLUME 94.5 fl (80.0-105.0); MEAN CORPUSCULAR HEMOGLOBIN 31.2 pg (25.0-35.0); MEAN PLATELET VOLUME 11.1 fl (7.0-11.0); RBC 3.27 10^6/uL (3.5-6.1); RED CELL DISTRIBUTION WIDTH 14.2 % (11.5-14.5); WHITE BLOOD COUNT 5.1 10^3/uL (4.5-11.0)
[2018-07-20 06:52] VITALS: RESP 18; TEMP 97.3; O2SAT 98
[2018-07-20 07:29] LABS: ALB/GLOB RATIO 0.8 (1.1-1.8); ALT/SGPT 58 U/L (7-56); AST/SGOT 66 U/L (14-36); BLOOD UREA NITROGEN 16 mg/dL (7-21); CALCIUM 5.6 mg/dL (8.4-10.5); GFR NON-AFRICAN AMERICAN > 60
[2018-07-20] MEDS: Insulin Reg-HIGH-Coverage SC SCH ×3 (10:20→17:26)
[2018-07-20] MEDS: Psyllium Packet PO SCH (10:20)
[2018-07-20] MEDS: Magnesium Oxide 400 mg Tab UD PO SCH (10:21)
[2018-07-20] MEDS: Potassium Chloride 20 mEq ER Tab PO SCH (10:21)
[2018-07-20] MEDS: Multivitamin With Minerals Tab PO SCH (10:22)
--- NOTE | 2018-07-20 11:15 | PN ---
DATE: 07/20/2018 CARDIOLOGY FOLLOWUP SUBJECTIVE: The patient is without shortness of breath. PHYSICAL EXAMINATION: VITAL SIGNS: Stable. NECK: Negative JVD. LUNGS: Without rales. HEART: S1 and S2. EXTREMITIES: Without edema. LABORATORY DATA: Platelet count is up to 75,000. IMPRESSION: 1. Status post cerebrovascular accident. 2. Improving thrombocytopenia. 3. Subarachnoid bleed. 4. Venous thrombosis in the upper extremities. PLAN: Given these findings, the patient is improving in terms of her thrombocytopenia. She is scheduled for transfer to rehab today. Carter Farmer MD
--- NOTE | 2018-07-20 12:35 | PCM.STROKE ---
<Cliff Vanegas - Last Filed: 07/20/18 12:32> Interval History - Treatment DVT Prophylaxis: Sequential compression device in place bilaterally Antiplatelet: Acetylsalicylic acid (ASA) - Education Written Stroke Education provided regarding: personal risk factors, stroke warning sign/symptoms, how to activate emergency medical services, need to follow up after discharge NIHSS Stroke Scale - Date/Time Evaluation Performed Date Performed: 07/12/18 Time Performed: 20:00 - How Severe is the Stroke Level of Consciousness: 0=Alert LOC to Questions: 0=Both comments correct LOC to commands: 0=Obeys both correctly Best Gaze: 0=Normal Visual: 0=No visual loss Facial: 0=Normal Motor Arm - Left: 0=No drift Motor Arm - Right: 3=No effort against gravity (falls immediately) Motor Leg - Left: 0=No drift Motor Leg - Right: 3=No effort against gravity (falls immediately) Limb Ataxia: 0=Absent Sensory: 0=Normal Best Language: 0=No aphasia Dysarthia: 0=Normal articulation Extinction & Inattention (Neglect): 0=Normal, no object Score: 6 Exam - Vital Sign Vital Signs: Temp Pulse Resp BP Pulse Ox 97.3 F L 81 18 130/63 98 07/20/18 06:00 07/20/18 10:21 07/20/18 06:00 07/20/18 10:21 07/20/18 06:00 Constitutional: No distress Right Pupil: Reactive Left Pupil: Reactive Cardiovascular: Regular rate & rhythm Mental Status: Normal: Orientation Cranial Nerve: Normal: Visual Parrish, Extraocular movement intact Neuro motor strength exam: Left Upper Extremity: 5, Right Upper Extremity: 2/1, Left Lower Extremity: 5, Right Lower Extremity: 2/1 Vascular Risk: Diabetes Mellitus - Data reviewed Laboratory results: 07/20/18 06:00 07/20/18 06:00 Triglycerides 119 mg/dL (35-160) 07/13/18 05:00 Cholesterol 66 mg/dL (130-200) L 07/13/18 05:00 LDL Cholesterol Direct < 30 mg/dL (0-129) 07/13/18 05:00 HDL Cholesterol 30 mg/dL (29-60) 07/13/18 05:00 Assessment and Plan - Assessment and Plan (Free Text) Plan: Assessment and Plan: Patient is a 72 year old female with PMHx of recurrent nephrolithiasis, re current UTIs, ureterovesicular reflux, DM2, Crohn's disease, h/o subdural hematoma brought in by EMS for evaluation and treatment of fever/chills/diarrhea x 2days. Neurology team was consulted for management of subarachnoid hemorrhage found on imaging. [facility] - 07/11/[address] without Contrast - Small amount of subarachnoid hemorrhage in the left frontal lobe. - 07/12/2018 CTA head and neck- Calcified intra cavernous segments of the internal carotid arteries - 07/14/2018 Brain MRI without contrast- small multifocal late acute/subacute cortical infarctions in the high frontal, parietal and to a lesser extent occipital cortex. Redemonstration of small left frontal subarachnoid hemorrhage - 07/19/2018 CT head without contrast- 1. Diminishing left frontal subarachnoid hemorrhage. No definite new intracranial hemorrhage appreciable. 2. Small lobar infarctions are identified at the left frontal and right occipital lobes history reflecting infarct in evolution minimally demonstrated in prior MRI brain 07/14/2018. 3. Reiterated limited age-related neuro degene rative findings - LESLY ordered and pending- scheduled for 07/17/[address] Hutchinson- will follow up on ensuring completion - started on aspirin 81mg PO daily - continue aggressive PT, OT, ST Patient seen, case discussed with, and plan approved by attending physician, Dr. Fuchs. <Reji Fuchs - Last Filed: 07/20/18 19:05> Interval History - Education Written Stroke Education provided regarding: personal risk factors, stroke warning sign/symptoms, how to activate emergency medical services, need to follow up after discharge Exam - Vital Sign Vital Signs: Temp Pulse Resp BP Pulse Ox 97.3 F L 885 H 18 130/90 98 07/20/18 06:00 07/20/18 14:00 07/20/18 06:00 07/20/18 13:58 07/20/18 06:00 - Data reviewed Laboratory results: 07/20/18 06:00 07/20/18 06:00 Triglycerides 119 mg/dL (35-160) 07/13/18 05:00 Cholesterol 66 mg/dL (130-200) L 07/13/18 05:00 LDL Cholesterol Direct < 30 mg/dL (0-129) 07/13/18 05:00 HDL Cholesterol 30 mg/dL (29-60) 07/13/18 05:00 Attending/Attestation - Attestation I have personally seen and examined this patient.: Yes I have fully participated in the care of the patient.: Yes I have reviewed all pertinent clinical information, including history, physical exam and plan: Yes Notes (Text): 07/20/18 19:04 I agree with the assessment and plan. Will continue current meds and transfer the patient to acute rehab.
--- NOTE | 2018-07-20 13:25 | CP.PCM.PN ---
Subjective - Date & Time of Evaluation Date of Evaluation: 07/20/18 Time of Evaluation: 13:24 - Subjective Subjective: Nephrology Consultation Note: Assessment: stable CODY: improved HAGMA with lactic acidosis RUE DVT Hypokalemia hypocalcemia GNR sepsis with shock diabetes Mellitus ( years), b/l kidney stones and recurrent UTIs, gastric bypass surgery, UV reflux, crohns disease, splenomegaly, pancytopenia hypophosphatemia, hypokalemia subarachnoid hemorrhage and acute CVA severe sys CHF LVEF 30% Plan No acute need for renal replacement therapy at this time. Maintain hemodynamics stable. Avoid hypotension. Patient not on ACEI/ARB. will add low dose in view of CHF. midodrine changed to prn Monitor Input/Output, daily weights and renal function with basic metabolic panel supplement lytes as needed renal sono reviewed. ID, IR and urology involved check urine pro/cr and alb/cr legs compressive stockings added low dose lasix as tolerated by BP supplemented Ca, on Oscal D, weekly Vit D supplement lytes as needed Dose meds/antibiotics for improved GFR. Glycemic control Further work up/management as per primary team Thanks for allowing me to participate in care of your patient. Will follow patient with you. Please call if any Qs. had d/w team and family Dr Chad Jernigan Office: [phone] Reason for consult: acidosis and hypokalemia HPI: Pt is a 72 F with hx of diabetes Mellitus ( years), b/l kidney stones and recurrent UTIs, ileum bypass surgery, UV reflux, crohn's disease, splenomegaly, pancytopenia presented with complaints of fever and chhills, admitted to ICU with sepsis with shock requiring pressors and lactic acidosis. no knwon OTC/herbal meds or NSAIDs Noted recent iodinated contrast exposure. Noted obvious episodes of low BP. per , pt got sick for last couple of days ROS: pt alert awake. c/o Rt arm swelling. feels better Physical Examination: General Appearance: in no acute respiratory distress, better appearing Vitals reviewed and noted as below Head; Atraumatic, normocephalic ENT: no ulcers no thrush. Tongue is midline. Oropharynx: no rash or ulcers. EYES: Pupils are equal, round and reactive to light accommodation. Eye muscles and extraocular movement intact. Sclera is anicteric. Neck; supple no lymphadenopathy, no thyromegaly or bruit Lungs: Normal respiratory rate/effort. Breath sounds bilateral clearer Heart: normal rate. s1s2 normal. No rub or gallop. Extremities: trace edema. No varicose veins Neurological: Patient is awake but not much communicative Skin: Warm and dry. Normal turgor. No rash. Palpitation: Normal elasticity for age Abdomen: Abdomen is soft. Bowel sounds +. There is no abdominal tenderness, no guarding/rigidity no organomegaly Psych: normal mood MSK: no joint tenderness or swelling. Digits and nails normal, no deformity : kidney or bladder not palpable Labs/imaging reviewed. Past medical history, past surgical history, family history, social history, allergy reviewed and noted as below Family hx: no hx of CKD. Rest non-contributory Objective - Vital Signs/Intake and Output Vital Signs (last 24 hours): Temp Pulse Resp BP Pulse Ox 97.3 F L 81 18 130/63 98 07/20/18 06:00 07/20/18 10:21 07/20/18 06:00 07/20/18 10:21 07/20/18 06:00 Intake and Output: 07/20/18 07/20/18 06:59 18:59 Intake Total 460 Balance 460 - Medications Medications: Current Medications Alprazolam (Xanax) 0.25 mg PO HS PRN; Protocol PRN Reason: Sleep Stop: 07/26/18 11:40 Last Admin: 07/20/18 00:34 Dose: 0.25 mg Aspirin (Ecotrin) 81 mg PO DAILY [facility] Last Admin: 07/20/18 10:21 Dose: 81 mg Calcium/Vitamin D (Oscal-D 250 Mg-125 Units Tab) 2 tab PO BID [facility] Last Admin: 07/19/18 17:14 Dose: 2 tab Ergocalciferol (Drisdol 50,000 Intl Units Cap) 1 cap PO Q7D [facility] Last Admin: 07/18/18 17:30 Dose: 1 cap Furosemide (Lasix) 20 mg PO DAILY [facility] Last Admin: 07/19/18 09:22 Dose: 20 mg Guaifenesin (Robitussin) 100 mg PO Q4H PRN PRN Reason: Cough Last Admin: 07/15/18 00:35 Dose: 100 mg Meropenem (Merrem Iv 1 Gm Premix) 1 gm in 50 mls @ 100 mls/hr IVPB 020 0,1000,1800 [facility]; Protocol Last Admin: 07/20/18 01:51 Dose: 100 mls/hr Insulin Human Regular (Humulin R High) 0 units SC ACHS [facility]; Protocol Last Admin: 07/20/18 12:28 Dose: 2 u Lisinopril (Zestril) 5 mg PO DAILY [facility] Last Admin: 07/20/18 10:21 Dose: 5 mg Magnesium Oxide (Mag-Ox) 400 mg PO BID [facility] Last Admin: 07/20/18 10:21 Dose: 400 mg Midodrine (Proamatine) 10 mg PO TID PRN PRN Reason: Other Multivitamins/Minerals (Therapeutic-M Tab) 1 tab PO 0800 [facility] Last Admin: 07/20/18 10:22 Dose: 1 tab Ondansetron HCl (Zofran Inj) 4 mg IVP Q6H PRN PRN Reason: Nausea/Vomiting Last Admin: 07/12/18 06:20 Dose: 4 mg Pantoprazole Sodium (Protonix Ec Tab) 40 mg PO 0600 [facility] Last Admin: 07/20/18 06:10 Dose: 40 mg Potassium Chloride (K-Dur 20 Meq Er Tab) 20 meq PO BRK [facility] Last Admin: 07/20/18 10:21 Dose: 20 meq Potassium Phos/Sodium Phos (Neutra-Phos) 1 pkt PO TID [facility] Last Admin: 07/19/18 17:14 Dose: 1 pkt Prednisone (Prednisone Tab) 20 mg PO DAILY [facility] Last Admin: 07/20/18 10:21 Dose: 20 mg Pregabalin (Lyrica) 50 mg PO HS [facility] Last Admin: 07/19/18 22:18 Dose: 50 mg Psyllium Hydrophilic Mucilloid (Hydrocil Instant) 1 pkt PO BID [facility] Last Admin: 07/20/18 10:20 Dose: 1 pkt - Labs Labs: 07/20/18 06:00 07/20/18 06:00 PT 22.3 SECONDS (9.4-12.5) H 07/19/18 10:20 INR 1.91 07/19/18 10:20 APTT 26.5 Seconds (25.1-36.5) 07/18/18 06:00
[2018-07-20] MEDS: Potassium & Sodium Phosphate PO SCH ×2 (13:59→14:09)
[2018-07-20 14:00] VITALS: BP 130/90
[2018-07-20] MEDS: Calcium-Vit D 250 mg-125 Units Tab UD PO SCH (14:09)
--- NOTE | 2018-07-20 17:05 | CP.PCM.DIS ---
<Pal,Sivakumar - Last Filed: 07/20/18 17:43> Provider - Provider Date of Admission: 07/11/18 08:18 Attending physician: Ila Hoyos MD Primary care physician: Oleg Browne MD Time Spent in preparation of Discharge (in minutes): 35 Hospital Course - Lab Results Lab Results: Micro Results 07/13/18 09:20 Blood-Venous Blood Culture - Final NO GROWTH AFTER 5 DAYS 07/13/18 09:20 Blood-Venous Gram Stain - Final TEST NOT PERFORMED 07/13/18 09:10 Blood-Venous Blood Culture - Final NO GROWTH AFTER 5 DAYS 07/13/18 09:10 Blood-Venous Gram Stain - Final TEST NOT PERFORMED 07/13/18 21:51 Urine,Clean Catch Urine Culture - Final Yeast Species 07/12/18 15:19 Stool C. difficile Antigen & Toxins A,B - Final 07/11/18 05:30 Blood Blood Culture - Final Escherichia Coli 07/11/18 05:30 Blood Gram Stain - Final 07/11/18 05:30 Blood Blood Culture - Final Escherichia Coli 07/11/18 05:30 Blood Gram Stain - Final 07/11/18 04:30 Urine,Clean Catch Urine Culture - Final Proteus Mirabilis Enterococcus Faecalis 07/11/18 09:30 Naris MRSA Culture (Admit) - Final MRSA NOT DETECTED Most Recent Lab Values WBC 5.1 10^3/uL (4.5-11.0) 07/20/18 06:00 RBC 3.27 10^6/uL (3.5-6.1) L 07/20/18 06:00 Hgb 10.2 g/dL (12.0-16.0) L 07/20/18 06:00 Hct 30.9 % (36.0-48.0) L 07/20/18 06:00 MCV 94.5 fl (80.0-105.0) 07/20/18 06:00 MCH 31.2 pg (25.0-35.0) 07/20/18 06:00 MCHC 33.0 g/dl (31.0-37.0) 07/20/18 06:00 RDW 14.2 % (11.5-14.5) 07/20/18 06:00 Plt Count 75 10^3/uL (120.0-450.0) L 07/20/18 06:00 Manual Plt Count 75 K/mm3 (120-450) L 07/18/18 07:00 MPV 11.1 fl (7.0-11.0) H 07/20/18 06:00 Gran % 71.9 % (50.0-68.0) H 07/19/18 06:00 Lymph % (Auto) 20.4 % (22.0-35.0) L 07/19/18 06:00 [place] % (Auto) 6.9 % (1.0-6.0) H 07/19/18 06:00 Eos % (Auto) 0.4 % (1.5-5.0) L 07/19/18 06:00 Baso % (Auto) 0.4 % (0.0-3.0) 07/19/18 06:00 Gran # 3.41 (1.4-6.5) 07/19/18 06:00 Lymph # (Auto) 1.0 (1.2-3.4) L 07/19/18 06:00 [place] # (Auto) 0.3 (0.1-0.6) 07/19/18 06:00 Eos # (Auto) 0.0 (0.0-0.7) 07/19/18 06:00 Baso # (Auto) 0.02 K/mm3 (0.0-2.0) 07/19/18 06:00 Neutrophils % (Manual) 84 % (50.0-70.0) H 07/11/18 06:45 Band Neutrophils % 10 % (0-2) H 07/11/18 06:45 Lymphocytes % (Manual) 5 % (22.0-35.0) L 07/11/18 06:45 Monocytes % (Manual) 1 % (1.0-6.0) 07/11/18 06:45 Platelet Evaluation Low (NORMAL) 07/17/18 05:31 PT 22.3 SECONDS (9.4-12.5) H 07/19/18 10:20 INR 1.91 07/19/18 10:20 APTT 26.5 Seconds (25.1-36.5) 07/18/18 06:00 D-Dimer, Quantitative 4466 ng/mlDDU (0-243) H 07/19/18 13:14 pCO2 30 mm/Hg (35-45) L 07/15/18 11:45 pO2 46 mm/Hg (30-55) 07/16/18 12:30 HCO3 19.0 mmol/L (21-28) L 07/15/18 11:45 ABG pH 7.41 (7.35-7.45) 07/15/18 11:45 ABG Total CO2 19.9 mmol.L (22-28) L 07/15/18 11:45 ABG O2 Saturation 98.1 % (95-98) H 07/15/18 11:45 ABG Base Excess -4.5 mmol/L (-2.0-3.0) L 07/15/18 11:45 ABG Potassium 3.1 mmol/L (3.6-5.2) L 07/15/18 11:45 VBG pH 7.36 (7.32-7.43) 07/16/18 12:30 VBG pCO2 33.0 (40-60) L 07/16/18 12:30 VBG HCO3 18.6 mmol/l (21-28) L 07/16/18 12:30 VBG Total CO2 19.6 mmol.L (22-28) L 07/16/18 12:30 VBG O2 Sat (Calc) 85.0 % (40-65) H 07/16/18 12:30 VBG Base Excess -5.9 mmol/L (0.0-2.0) L 07/16/18 12:30 VBG Potassium 4.5 mmol/L (3.6-5.2) 07/16/18 12:30 Sodium 138.0 mmol/L (132-148) 07/16/18 12:30 Chloride 110.0 mmol/L (98-107) H 07/16/18 12:30 Glucose 277 mg/dl (65-105) H 07/16/18 12:30 Lactate 2.1 mmol/L (0.7-2.1) 07/16/18 12:30 FiO2 21.0 % 07/16/18 12:30 Sodium 140 mmol/L (132-148) 07/20/18 06:00 Potassium 4.0 mmol/L (3.6-5.0) 07/20/18 06:00 Chloride 113 mmol/L (98-107) H 07/20/18 06:00 Carbon Dioxide 21 mmol/L (21-33) 07/20/18 06:00 Anion Gap 10 (10-20) 07/20/18 06:00 BUN 16 mg/dL (7-21) 07/20/18 06:00 Creatinine 0.9 mg/dl (0.7-1.2) 07/20/18 06:00 Est GFR ( Amer) > 60 07/20/18 06:00 Est GFR (Non-Af Amer) > 60 07/20/18 06:00 POC Glucose (mg/dL) 480 mg/dL (65-110) H* 07/20/18 16:53 Random Glucose 149 mg/dL (70-110) H 07/20/18 06:00 Calcium 5.6 mg/dL (8.4-10.5) L* 07/20/18 06:00 Phosphorus 3.1 mg/dL (2.5-4.5) 07/19/18 06:00 Magnesium 1.7 mg/dL (1.7-2.2) 07/19/18 06:00 Total Bilirubin 1.0 mg/dL (0.2-1.3) 07/20/18 06:00 AST 66 U/L (14-36) H 07/20/18 06:00 ALT 58 U/L (7-56) H 07/20/18 06:00 Alkaline Phosphatase 114 U/L (38-126) 07/20/18 06:00 Troponin I 1.12 ng/mL H* D 07/13/18 05:30 Total Protein 4.6 g/dL (5.8-8.3) L 07/20/18 06:00 Albumin 2.0 g/dL (3.0-4.8) L 07/20/18 06:00 Globulin 2.6 gm/dL 07/20/18 06:00 Albumin/Globulin Ratio 0.8 (1.1-1.8) L 07/20/18 06:00 Prealbumin 5.9 mg/dL (17.6-36.0) L 07/17/18 08:20 Triglycerides 119 mg/dL (35-160) 07/13/18 05:00 Cholesterol 66 mg/dL (130-200) L 07/13/18 05:00 LDL Cholesterol Direct < 30 mg/dL (0-129) 07/13/18 05:00 HDL Cholesterol 30 mg/dL (29-60) 07/13/18 05:00 25-OH Vitamin D Total 17.2 NG/ML (30.0-100.0) L 07/17/18 05:31 Arterial Blood Potassium 3.1 mmol/L (3.6-5.2) L 07/15/18 11:45 Venous Blood Potassium 4.5 mmol/L (3.6-5.2) 07/16/18 12:30 Urine Color Light red (YELLOW) 07/11/18 06:25 Urine Appearance Cloudy (CLEAR) 07/11/18 06:25 Urine pH 6.5 (4.7-8.0) 07/11/18 06:25 Ur Specific [place] 1.015 (1.005-1.035) 07/11/18 06:25 Urine Protein 30 mg/dL (<30 mg/dL) H 07/11/18 06:25 Urine Glucose (UA) 500 mg/dL (NEGATIVE) H 07/11/18 06:25 Urine Ketones Negative mg/dL (NEGATIVE) 07/11/18 06:25 Urine Blood Large (NEGATIVE) H 07/11/18 06:25 Urine Nitrate Positive (NEGATIVE) H 07/11/18 06:25 Urine Bilirubin Negative (NEGATIVE) 07/11/18 06:25 Urine Urobilinogen 0.2 E.U./dL (<1 E.U./dL) 07/11/18 06:25 Ur Leukocyte Esterase Moderate Fifi/uL (NEGATIVE) H 07/11/18 06:25 Urine RBC Tntc /hpf (0-2) 07/11/18 06:25 Urine WBC 10 - 15 /hpf (0-6) 07/11/18 06:25 Ur Epithelial Cells 0 - 2 /hpf (0-5) 07/11/18 06:25 Urine Bacteria Small (NEG) 07/11/18 06:25 Random Vancomycin 7.2 ug/mL (20-40) L 07/16/18 08:30 Influenza Typ A,B (EIA) Negative for flu a/b (NEGATIVE) 07/12/18 22:30 Blood Type A NEGATIVE 07/16/18 10:13 Antibody Screen Negative 07/16/18 10:13 BBK History Checked Patient has bt 07/16/18 10:13 - Hospital Course Hospital Course: Sivakumar Vázquez, PGY1 Discharge Summary for Dr. Hoyos Patient is a 72 y/o F with PMHx of HTN, recurrent nephrolithiasis, recurrent UTIs, ureterovesicular reflux, DM2, Crohn's disease, h/o subdural hematoma brought in by EMS to [facility] with complaints of fever/chills/diarrhea x 2 days duration. As per ED, patient was A&Ox3 when she came in, with no signs of respiratory distress. EKG showed sinus tachycardia. Patient met SIRS criteria with Temp 100.7, HR 103, and BP 63/36. UA was positive for UTI. VBG indicated acidosis, pH 7.2 with elevated lactate of 9.6. Code sepsis was called. Patient was given a bolus of LR but blood pressure was not responding to fluid resuscitation. ICU was consulted and patient was admitted to the unit for urosepsis. During arrival patient's mental status was declining. Medical team examined patient. She was unable to provide reliable ROS due to altered mental status. Central line (Right IJ) was placed in the ICU. She was started on levophed and vasopressin for blood pressure support. Based on the result of the cultures, patient was found to have E. Coli bacteremia. As a result, patient was admitted primarily for AMS 2/2 E. Coli Bactermia in the setting of Urosepsis. Head CT was done and showed a stable 1.5 cm subarachnoid hemorrhage. Neurology was consulted however no intervention was recommended at the time. Urology was consulted and indicated there was no significant hydronephrosis. CT Abd/pelvis was remarkable for large stones in the R-renal pelvis and multiples stones in the right distal ureter with left ureteral stent with stones within the proximal pigtail; no hydronephrosis. However, since patient was unstable, no acute urological intervention was warranted. 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 Patient also had thrombocytopenia (platelets < 50) in which Hematology was consulted (patient has a history of chronic thrombocytopenia). During hospital course, patient's blood pressure and mental status improved, now AAOx3; vasopressors were discontinued and patient was started on midodrine. She was safe for transfer to the floor. Blood cx were positive for E. Coli and Urine cx were positive for proteus mirabilis and enterococcus faecalis. Patient was on merropenem for antibiotic coverage during hospital stay. On physical exam, patient displayed weakness of the right upper and lower extremities due to the acute stroke. Physical therapy was consulted and recommended acute rehab. During hospital course, patient was found to have right upper arm swelling. A R-UE US was conducted and was positive for DVT. Given the fact the patient has thrombocytopenia, hematology did not recommend anticoagulation at this time for the DVT. Patient's central line was removed. ID suggested that patient complete up to 14 days of antibiotic coverage with meropenem. She had placement of midline. Patient also presented for urinary retention in which urology recommended discontinuation of wiggins catheter. Furthermore, since patient is now in a stable condition she may follow up with urology outpatient [facility]. Patient is hemodynamically stable and safe for transfer to acute rehab. She will complete her IV antibiotics and resume her inpatient medications. Discharge Exam - Head Exam Head Exam: ATRAUMATIC, NORMAL INSPECTION, NORMOCEPHALIC - Eye Exam Eye Exam: Normal appearance Pupil Exam: NORMAL ACCOMODATION, PERRL - ENT Exam ENT Exam: Mucous Membranes Moist, Normal Exam - Neck Exam Neck exam: Normal Inspection - Respiratory Exam Respiratory Exam: Clear to PA & Lateral, NORMAL BREATHING PATTERN. absent: Chest Wall Tenderness, Rales, Rhonchi, Wheezes, Respiratory Distress - Cardiovascular Exam Cardiovascular Exam: RRR, +S1, +S2 - GI/Abdominal Exam GI & Abdominal Exam: Normal Bowel Sounds, Soft. absent: Guarding, Mass, Organomegaly, Rebound - Extremities Exam Extremities exam: pedal edema, pedal pulses present Additional comments: Weakness of the Right upper extremity and right lower extremity. Improved since admission. - Neurological Exam Neurological exam: Alert, Oriented x3 - Skin Skin Exam: Dry, Intact, Normal Color, Warm Discharge Plan - Discharge Medications Prescriptions: Meropenem [Merrem IV] 1 gm IV TID 3 Days #9 pds - Follow Up Plan Condition: GUARDED Disposition: REHAB FACILITY/REHAB UNIT Instructions: Smoking: Not Just Harmful to Your Lungs and Heart, Stroke (DC), Hemorrhagic Stroke, Risk Factors for Stroke Additional Instructions: 1. You will be discharged to acute rehab. 2. Please continue with your hospital medications. 3. You are also given IV meropenem 1 gram vial three times a day. Please continue for 3 more days. 4. After acute rehab, please follow up with outpatient urology at [facility] within 1 week of discharge. Referrals: Oleg Browne MD [Primary Care Provider] - <Ila Hoyos - Last Filed: 07/21/18 07:56> Provider - Provider Date of Admission: 07/11/18 08:18 Attending physician: Ila Hoyos MD Primary care physician: Oleg Browne MD Hospital Course - Lab Results Lab Results: Micro Results 07/13/18 09:20 Blood-Venous Blood Culture - Final NO GROWTH AFTER 5 DAYS 07/13/18 09:20 Blood-Venous Gram Stain - Final TEST NOT PERFORMED 07/13/18 09:10 Blood-Venous Blood Culture - Final NO GROWTH AFTER 5 DAYS 07/13/18 09:10 Blood-Venous Gram Stain - Final TEST NOT PERFORMED 07/13/18 21:51 Urine,Clean Catch Urine Culture - Final Yeast Species 07/12/18 15:19 Stool C. difficile Antigen & Toxins A,B - Final 07/11/18 05:30 Blood Blood Culture - Final Escherichia Coli 07/11/18 05:30 Blood Gram Stain - Final 07/11/18 05:30 Blood Blood Culture - Final Escherichia Coli 07/11/18 05:30 Blood Gram Stain - Final 07/11/18 04:30 Urine,Clean Catch Urine Culture - Final Proteus Mirabilis Enterococcus Faecalis 07/11/18 09:30 Naris MRSA Culture (Admit) - Final MRSA NOT DETECTED Most Recent Lab Values WBC 5.1 10^3/uL (4.5-11.0) 07/20/18 06:00 RBC 3.27 10^6/uL (3.5-6.1) L 07/20/18 06:00 Hgb 10.2 g/dL (12.0-16.0) L 07/20/18 06:00 Hct 30.9 % (36.0-48.0) L 07/20/18 06:00 MCV 94.5 fl (80.0-105.0) 07/20/18 06:00 MCH 31.2 pg (25.0-35.0) 07/20/18 06:00 MCHC 33.0 g/dl (31.0-37.0) 07/20/18 06:00 RDW 14.2 % (11.5-14.5) 07/20/18 06:00 Plt Count 75 10^3/uL (120.0-450.0) L 07/20/18 06:00 Manual Plt Count 75 K/mm3 (120-450) L 07/18/18 07:00 MPV 11.1 fl (7.0-11.0) H 07/20/18 06:00 Gran % 71.9 % (50.0-68.0) H 07/19/18 06:00 Lymph % (Auto) 20.4 % (22.0-35.0) L 07/19/18 06:00 [place] % (Auto) 6.9 % (1.0-6.0) H 07/19/18 06:00 Eos % (Auto) 0.4 % (1.5-5.0) L 07/19/18 06:00 Baso % (Auto) 0.4 % (0.0-3.0) 07/19/18 06:00 Gran # 3.41 (1.4-6.5) 07/19/18 06:00 Lymph # (Auto) 1.0 (1.2-3.4) L 07/19/18 06:00 [place] # (Auto) 0.3 (0.1-0.6) 07/19/18 06:00 Eos # (Auto) 0.0 (0.0-0.7) 07/19/18 06:00 Baso # (Auto) 0.02 K/mm3 (0.0-2.0) 07/19/18 06:00 Neutrophils % (Manual) 84 % (50.0-70.0) H 07/11/18 06:45 Band Neutrophils % 10 % (0-2) H 07/11/18 06:45 Lymphocytes % (Manual) 5 % (22.0-35.0) L 07/11/18 06:45 Monocytes % (Manual) 1 % (1.0-6.0) 07/11/18 06:45 Platelet Evaluation Low (NORMAL) 07/17/18 05:31 PT 22.3 SECONDS (9.4-12.5) H 07/19/18 10:20 INR 1.91 07/19/18 10:20 APTT 26.5 Seconds (25.1-36.5) 07/18/18 06:00 D-Dimer, Quantitative 4466 ng/mlDDU (0-243) H 07/19/18 13:14 pCO2 30 mm/Hg (35-45) L 07/15/18 11:45 pO2 46 mm/Hg (30-55) 07/16/18 12:30 HCO3 19.0 mmol/L (21-28) L 07/15/18 11:45 ABG pH 7.41 (7.35-7.45) 07/15/18 11:45 ABG Total CO2 19.9 mmol.L (22-28) L 07/15/18 11:45 ABG O2 Saturation 98.1 % (95-98) H 07/15/18 11:45 ABG Base Excess -4.5 mmol/L (-2.0-3.0) L 07/15/18 11:45 ABG Potassium 3.1 mmol/L (3.6-5.2) L 07/15/18 11:45 VBG pH 7.36 (7.32-7.43) 07/16/18 12:30 VBG pCO2 33.0 (40-60) L 07/16/18 12:30 VBG HCO3 18.6 mmol/l (21-28) L 07/16/18 12:30 VBG Total CO2 19.6 mmol.L (22-28) L 07/16/18 12:30 VBG O2 Sat (Calc) 85.0 % (40-65) H 07/16/18 12:30 VBG Base Excess -5.9 mmol/L (0.0-2.0) L 07/16/18 12:30 VBG Potassium 4.5 mmol/L (3.6-5.2) 07/16/18 12:30 Sodium 138.0 mmol/L (132-148) 07/16/18 12:30 Chloride 110.0 mmol/L (98-107) H 07/16/18 12:30 Glucose 277 mg/dl (65-105) H 07/16/18 12:30 Lactate 2.1 mmol/L (0.7-2.1) 07/16/18 12:30 FiO2 21.0 % 07/16/18 12:30 Sodium 140 mmol/L (132-148) 07/20/18 06:00 Potassium 4.0 mmol/L (3.6-5.0) 07/20/18 06:00 Chloride 113 mmol/L (98-107) H 07/20/18 06:00 Carbon Dioxide 21 mmol/L (21-33) 07/20/18 06:00 Anion Gap 10 (10-20) 07/20/18 06:00 BUN 16 mg/dL (7-21) 07/20/18 06:00 Creatinine 0.9 mg/dl (0.7-1.2) 07/20/18 06:00 Est GFR ( Amer) > 60 07/20/18 06:00 Est GFR (Non-Af Amer) > 60 07/20/18 06:00 POC Glucose (mg/dL) 480 mg/dL (65-110) H* 07/20/18 16:53 Random Glucose 149 mg/dL (70-110) H 07/20/18 06:00 Calcium 5.6 mg/dL (8.4-10.5) L* 07/20/18 06:00 Phosphorus 3.1 mg/dL (2.5-4.5) 07/19/18 06:00 Magnesium 1.7 mg/dL (1.7-2.2) 07/19/18 06:00 Total Bilirubin 1.0 mg/dL (0.2-1.3) 07/20/18 06:00 AST 66 U/L (14-36) H 07/20/18 06:00 ALT 58 U/L (7-56) H 07/20/18 06:00 Alkaline Phosphatase 114 U/L (38-126) 07/20/18 06:00 Troponin I 1.12 ng/mL H* D 07/13/18 05:30 Total Protein 4.6 g/dL (5.8-8.3) L 07/20/18 06:00 Albumin 2.0 g/dL (3.0-4.8) L 07/20/18 06:00 Globulin 2.6 gm/dL 07/20/18 06:00 Albumin/Globulin Ratio 0.8 (1.1-1.8) L 07/20/18 06:00 Prealbumin 5.9 mg/dL (17.6-36.0) L 07/17/18 08:20 Triglycerides 119 mg/dL (35-160) 07/13/18 05:00 Cholesterol 66 mg/dL (130-200) L 07/13/18 05:00 LDL Cholesterol Direct < 30 mg/dL (0-129) 07/13/18 05:00 HDL Cholesterol 30 mg/dL (29-60) 07/13/18 05:00 25-OH Vitamin D Total 17.2 NG/ML (30.0-100.0) L 07/17/18 05:31 Arterial Blood Potassium 3.1 mmol/L (3.6-5.2) L 07/15/18 11:45 Venous Blood Potassium 4.5 mmol/L (3.6-5.2) 07/16/18 12:30 Urine Color Light red (YELLOW) 07/11/18 06:25 Urine Appearance Cloudy (CLEAR) 07/11/18 06:25 Urine pH 6.5 (4.7-8.0) 07/11/18 06:25 Ur Specific [place] 1.015 (1.005-1.035) 07/11/18 06:25 Urine Protein 30 mg/dL (<30 mg/dL) H 07/11/18 06:25 Urine Glucose (UA) 500 mg/dL (NEGATIVE) H 07/11/18 06:25 Urine Ketones Negative mg/dL (NEGATIVE) 07/11/18 06:25 Urine Blood Large (NEGATIVE) H 07/11/18 06:25 Urine Nitrate Positive (NEGATIVE) H 07/11/18 06:25 Urine Bilirubin Negative (NEGATIVE) 07/11/18 06:25 Urine Urobilinogen 0.2 E.U./dL (<1 E.U./dL) 07/11/18 06:25 Ur Leukocyte Esterase Moderate Fifi/uL (NEGATIVE) H 07/11/18 06:25 Urine RBC Tntc /hpf (0-2) 07/11/18 06:25 Urine WBC 10 - 15 /hpf (0-6) 07/11/18 06:25 Ur Epithelial Cells 0 - 2 /hpf (0-5) 07/11/18 06:25 Urine Bacteria Small (NEG) 07/11/18 06:25 Random Vancomycin 7.2 ug/mL (20-40) L 07/16/18 08:30 Influenza Typ A,B (EIA) Negative for flu a/b (NEGATIVE) 07/12/18 22:30 Blood Type A NEGATIVE 07/16/18 10:13 Antibody Screen Negative 07/16/18 10:13 BBK History Checked Patient has bt 07/16/18 10:13 Attending/Attestation - Attestation I have personally seen and examined this patient.: Yes I have fully participated in the care of the patient.: Yes I have reviewed all pertinent clinical information, including history, physical exam and plan: Yes Notes (Text): 07/20/18 72 year old female with past medical history of hypertension and UTIs who presented with septic shock secondary to E Coli bacteremia and Proteus Mirabilis / Enterococcus Faecalis UTI. She was started on iv antiobiotics and pressors which improvement of symptoms. CT scan also showed large stones in the right renal pelvis and multiples stones in the right distal ureter with left ureteral stent with stones within the proximal pigtail; no hydronephrosis. She was seen by urology, however as patient was unstable no acute urological intervention was planned. She will need outpatient urology follow up. CT head also showed stable 1.5 cm subarachnoid hemorrhage. Neurosurgery was consulted however no intervention was recommended at the time. 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 PT recommended rehab. Neurology was following. Hematology was following as well for thrombocytopenia and thrombus seen on RUE ultrasound, however patient is not candidate for anticoagulation secondary to thrombocytopenia and SAH. Patient overall improved. She is discharged to rehab. Continue with iv antibiotics. Follow up with pmd. Follow up with hematology. Follow up with urology. Ila Hoyos MD Hospitalist.
--- NOTE | 2018-07-20 17:55 | CP.PCM.PN ---
Subjective - Date & Time of Evaluation Date of Evaluation: 07/20/18 Time of Evaluation: 09:10 - Subjective Subjective: Comfortable in bed, feeling better today, no fevers, no nausea or abdominal pain. Objective - Vital Signs/Intake and Output Vital Signs (last 24 hours): Temp Pulse Resp BP Pulse Ox 97.7 F 59 L 19 114/59 L 97 07/18/18 17:08 07/18/18 17:08 07/18/18 17:08 07/18/18 17:08 07/18/18 17:08 Intake and Output: 07/18/18 07/18/18 06:59 18:59 Intake Total 290 Output Total 2400 Balance -2110 - Medications Medications: Current Medications Calcium/Vitamin D (Oscal-D 250 Mg-125 Units Tab) 1 tab PO BID [facility] Last Admin: 07/18/18 10:01 Dose: 1 tab Ergocalciferol (Drisdol 50,000 Intl Units Cap) 1 cap PO Q7D [facility] Furosemide (Lasix) 20 mg PO DAILY [facility] Last Admin: 07/18/18 10:00 Dose: 20 mg Guaifenesin (Robitussin) 100 mg PO Q4H PRN PRN Reason: Cough Last Admin: 07/15/18 00:35 Dose: 100 mg Meropenem (Merrem Iv 1 Gm Premix) 1 gm in 50 mls @ 100 mls/hr IVPB 020 0,1000,1800 [facility]; Protocol Last Admin: 07/18/18 10:01 Dose: 100 mls/hr Insulin Human Regular (Humulin R High) 0 units SC ACHS [facility]; Protocol Last Admin: 07/18/18 13:31 Dose: 2 u Magnesium Oxide (Mag-Ox) 400 mg PO BID [facility] Midodrine (Proamatine) 10 mg PO TID [facility] Last Admin: 07/18/18 13:32 Dose: 10 mg Morphine Sulfate (Morphine) 2 mg IVP Q4H PRN PRN Reason: Pain, moderate (4-7) Last Admin: 07/18/18 16:50 Dose: 2 mg Multivitamins/Minerals (Therapeutic-M Tab) 1 tab PO 0800 [facility] Last Admin: 07/18/18 08:52 Dose: 1 tab Ondansetron HCl (Zofran Inj) 4 mg IVP Q6H PRN PRN Reason: Nausea/Vomiting Last Admin: 07/12/18 06:20 Dose: 4 mg Oxycodone/Acetaminophen (Percocet 5/325 Mg Tab) 1 tab PO Q4H PRN PRN Reason: Pain, moderate (4-7) Stop: 07/20/18 03:48 Last Admin: 07/17/18 22:22 Dose: 1 tab Pantoprazole Sodium (Protonix Ec Tab) 40 mg PO 0600 [facility] Last Admin: 07/18/18 05:51 Dose: 40 mg Potassium Chloride (K-Dur 20 Meq Er Tab) 20 meq PO BRK [facility] Potassium Phos/Sodium Phos (Neutra-Phos) 1 pkt PO TID [facility] Last Admin: 07/18/18 13:32 Dose: 1 pkt Prednisone (Prednisone Tab) 20 mg PO DAILY [facility] Last Admin: 07/18/18 10:02 Dose: 20 mg Pregabalin (Lyrica) 50 mg PO HS [facility] Last Admin: 07/17/18 21:20 Dose: 50 mg Psyllium Hydrophilic Mucilloid (Hydrocil Instant) 1 pkt PO BID [facility] Last Admin: 07/18/18 10:00 Dose: 1 pkt - Labs Labs: 07/18/18 06:00 07/18/18 06:00 PT 22.8 SECONDS (9.4-12.5) H 07/18/18 06:00 INR 1.96 07/18/18 06:00 APTT 26.5 Seconds (25.1-36.5) 07/18/18 06:00 - Constitutional Appears: Chronically Ill - Head Exam Head Exam: NORMAL INSPECTION - Respiratory Exam Respiratory Exam: Decreased Breath Sounds - Cardiovascular Exam Cardiovascular Exam: +S1, +S2 - GI/Abdominal Exam GI & Abdominal Exam: Soft. absent: Tenderness Assessment and Plan - Assessment and Plan (Free Text) Plan: Assessment S/P septic shock with acute renal failure, toxic-metabolic encephalopathy, slowly improving (on top of small left frontal lobe subarachnoid hemorrhage as seen on head CT) due to E. coli bacteremia, consider due to pyelonephritis in this patient with history of nephrolithiasis and obstructive uropathy, but also grewE. faecalis and Proteus in the urine, R/O infected nephrolithiasis - other differential diagnosis is intra-abdominal infection but CT A/P does not show specific source of infection in the abdomen history of severe sepsis probably due to urinary tract infection in a patient with a history of nephrolithiasis S/P pigtail catheter placement history of right sided pyelonephritis associated with nephrolithiasis with E. fa ecalis Crohn's disease DM history of pyelonephritis bilateral nephrolithiasis S/P cholecystectomy S/P tubal ligation Plan continue Merrem (day 10 of 10-14 days); repeat urine cx is showing yeast which is probably colonization; repeat blood cx are negative; reviewed CT A/P showing multiple kidney stones and ureteral stents reviewed Urology evaluation - will eventually need further Urologic intervention prognosis is guarded at best
[2018-07-20 17:57] VITALS: PULSE 885
== END 2018-07-20 17:28 | DRG 871 ==
LOC: ED 04:55 → ICU 08:18 → CCU 07-12 08:20 → 3RSO 07-17 14:37
PROVIDERS: ADMIT Internal Medicine; ATTEND Internal Medicine
PROC: 05HM33Z Insertion of Infusion Device into Right Internal Jugular Vein, Percutaneous Approach (ICD-10-PCS; principal; 2018-07-11)
PROC: 05H533Z Insertion of Infusion Device into Right Subclavian Vein, Percutaneous Approach (ICD-10-PCS; 2018-07-18)
PROC: B546ZZA Ultrasonography of Right Subclavian Vein, Guidance (ICD-10-PCS; 2018-07-18)
DX: A41.51 Sepsis due to Escherichia coli [E. coli] (principal); S06.6X0A Traumatic subarachnoid hemorrhage without loss of consciousness, initial encounter; R65.21 Severe sepsis with septic shock; G92 Toxic encephalopathy; I21.4 Non-ST elevation (NSTEMI) myocardial infarction; N39.0 Urinary tract infection, site not specified; E87.2 Acidosis; D61.818 Other pancytopenia; N17.9 Acute kidney failure, unspecified; K50.90 Crohn's disease, unspecified, without complications; I42.0 Dilated cardiomyopathy; I82.A11 Acute embolism and thrombosis of right axillary vein; E87.6 Hypokalemia; E11.9 Type 2 diabetes mellitus without complications; R13.11 Dysphagia, oral phase; E83.51 Hypocalcemia; E83.42 Hypomagnesemia; E83.39 Other disorders of phosphorus metabolism; K21.9 Gastro-esophageal reflux disease without esophagitis; N18.9 Chronic kidney disease, unspecified; E11.22 Type 2 diabetes mellitus with diabetic chronic kidney disease; R29.706 NIHSS score 6; I50.82 Biventricular heart failure; R16.2 Hepatomegaly with splenomegaly, not elsewhere classified; W19.XXXA Unspecified fall, initial encounter; Z98.84 Bariatric surgery status; Z87.442 Personal history of urinary calculi; Z79.4 Long term (current) use of insulin; Z87.440 Personal history of urinary (tract) infections; R29.6 Repeated falls; N13.70 Vesicoureteral-reflux, unspecified; Z91.19 Patient's noncompliance with other medical treatment and regimen